=== PATIENT | male | born 1940 | race Caucasian/White ===

== ENCOUNTER → 2017-07-01 | Outpatient (CLI) | payer MEDICARE, BC | END | disposition home or self-care (01) | LOC: LABWHC1 17:34 | PROVIDERS: ATTEND Family Medicine | DX: I10 Essential (primary) hypertension (principal) | CPT/HCPCS: 36415; 93005 ==

== ENCOUNTER 2018-04-12 13:09 | Inpatient (IN) | payer MEDICARE, BC ==
--- NOTE | 2018-04-12 13:55 | ED ---
General Adult HPI - General Source: patient, RN notes reviewed Mode of arrival: wheelchair Limitations: no limitations <Raman Pike - Last Filed: 04/12/18 13:52> <Jitendra Saini - Last Filed: 04/12/18 18:47> - General Chief complaint: Extremity Injury, Lower Stated complaint: Arm Injury Time Seen by Provider: 04/12/18 13:21 - History of Present Illness Initial comments: This is an 78-year-old male presents emergency Department with multiple complaints. Patient states that he developed some pain in his left ankle along with swelling and redness approximately one week ago has been on antibiotics last 2 and half days as he was told he had an infection in his left foot and ankle. He states that he was seen in the [facility] and [facility]. Patient states that he had lab work, ultrasound at that time. He states now he developed right knee swelling and pain without any injury. He states had no injury to his left leg either. Patient denies any chest pain or shortness of breath. Patient does have a history of A. fib currently on Coumadin therapy. Patient states that he has some right-sided neck pain. He believes he dislocated that long. He states that this does not seem to be associated with his other symptoms. He denies any headache, blurred vision or any focal weakness. He has no history DVT no history of gout. (Raman Pike) - Related Data Home Medications Medication Instructions Recorded Confirmed amLODIPine BESYLATE [Norvasc] 10 mg PO DAILY 02/21/14 04/12/18 Ascorbic Acid [Vitamin C] 1,000 mg PO DAILY 04/12/18 04/12/18 Cholecalciferol [Vitamin D3] 1,000 unit PO DAILY 04/12/18 04/12/18 Clindamycin HCl 300 mg PO Q6H 04/12/18 04/12/18 Fish Oil/Dha/Epa [Fish Oil 1,200 1 cap PO DAILY 04/12/18 04/12/18 mg Fish Oil] Glucosam/Cornelius-Msm1/C/Erik/Bosw 1 tab PO DAILY 04/12/18 04/12/18 [Glucosamine-Chondroitin Tablet] Multivitamins, Thera [Multivitamin 1 tab PO DAILY 04/12/18 04/12/18 (formulary)] Selenium 100 mcg PO DAILY 04/12/18 04/12/18 Warfarin [Coumadin] 5 mg PO DIRECTED 04/12/18 04/12/18 Zinc 50 mg PO DAILY 04/12/18 04/12/18 traMADol HCL [Ultram] 50 - 100 mg PO Q4H PRN 04/12/18 04/12/18 Allergies Allergy/AdvReac Type Severity Reaction Status Date / Time Penicillins Allergy Rash/Hives Verified 04/12/18 16:52 Sulfa (Sulfonamide Allergy Rash/Hives Verified 04/12/18 16:52 Antibiotics) Review of Systems ROS Other: All systems not noted in ROS Statement are negative. <Raman Pike - Last Filed: 04/12/18 13:52> ROS Other: All systems not noted in ROS Statement are negative. <Jitendra Saini - Last Filed: 04/12/18 18:47> ROS Statement: Those systems with pertinent positive or pertinent negative responses have been documented in the HPI. Past Medical History Past Medical History: Cancer, Hypertension, Osteoarthritis (OA), Prostate Disorder History of Any Multi-Drug Resistant Organisms: None Reported Past Surgical History: Back Surgery, Joint Replacement, Prostate Surgery, Tonsillectomy Additional Past Surgical History / Comment(s): LT TOTAL KNEE; MULT SX ON RT KNEE ; ROHITH ROTATOR CUFF SURG, CYST REMOVED Past Anesthesia/Blood Transfusion Reactions: No Reported Reaction Past Psychological History: No Psychological Hx Reported Smoking Status: Never smoker Past Alcohol Use History: None Reported Past Drug Use History: None Reported - Past Family History Mother Family Medical History: Cancer Additional Family Medical History / Comment(s): FATHER - CANCER <Raman Pike - Last Filed: 04/12/18 13:52> General Exam Limitations: no limitations General appearance: alert, in no apparent distress Head exam: Present: atraumatic, normocephalic, normal inspection Neck exam: Present: normal inspection. Absent: tenderness, meningismus, lymphadenopathy Respiratory exam: Present: normal lung sounds bilaterally. Absent: respiratory distress, wheezes, rales, rhonchi, stridor Cardiovascular Exam: Present: regular rate, normal rhythm, normal heart sounds. Absent: systolic murmur, diastolic murmur, rubs, gallop, clicks Extremities exam: Present: other (Left ankle there is moderate swelling, mild erythema. Pedal pulses are equal bilaterally, there is mild swelling noted of the left calf region. Patient also has right knee swelling with no erythema no warmth patient's full range of motion minimally tender) Neurological exam: Present: alert, oriented X3, CN II-XII intact, reflexes normal. Absent: motor sensory deficit Skin exam: Present: warm, dry, intact, normal color. Absent: rash <Raman Pike - Last Filed: 04/12/18 13:52> Vital Signs 04/12/18 04/12/18 13:14 18:17 Temperature 98.8 F 99.2 F Pulse Rate 70 54 L Respiratory 16 16 Rate Blood Pressure 140/84 142/89 O2 Sat by Pulse 95 98 Oximetry Medical Decision Making <Raman Pike - Last Filed: 04/12/18 13:52> - Lab Data Result diagrams: 04/12/18 14:00 04/12/18 14:00 <Jitendra Saini - Last Filed: 04/12/18 18:47> - Medical Decision Making 78-year-old male with left ankle and right knee pain and swelling. Patient has elevated CRP, normal white blood cell count. There is some concern for infection that is partially treated given the patient has been on clindamycin. Joint aspiration is obtained. These results are pending including culture and crystals. X-ray of the knee shows large effusion, x-ray of the ankle shows soft tissue swelling. Ultrasound is obtained bilaterally which is negative for DVT, there is a acosta's cyst on the right. Case discussed with orthopedics, is felt at this time this is low probability of infection, we will await culture results as well as crystal studies. Case discussed with Dr. Watson, patient will be admitted secondary to both lower extremities being involved and difficulty ambulating. Rheumatology will be placed on consult. (Jitendra Saini) - Lab Data Lab Results 04/12/18 04/12/18 04/12/18 Range/Units 14:00 14:00 14:00 WBC 7.7 (3.8-10.6) k/uL RBC 4.54 (4.30-5.90) m/uL Hgb 12.9 L (13.0-17.5) gm/dL Hct 39.9 (39.0-53.0) % MCV 87.9 (80.0-100.0) fL MCH 28.5 (25.0-35.0) pg MCHC 32.5 (31.0-37.0) g/dL RDW 14.0 (11.5-15.5) % Plt Count 301 (150-450) k/uL Neutrophils % 80 % Lymphocytes % 9 % Monocytes % 8 % Eosinophils % 1 % Basophils % 0 % Neutrophils # 6.2 (1.3-7.7) k/uL Lymphocytes # 0.7 L (1.0-4.8) k/uL Monocytes # 0.6 (0-1.0) k/uL Eosinophils # 0.1 (0-0.7) k/uL Basophils # 0.0 (0-0.2) k/uL PT 33.9 H (9.0-12.0) sec INR 3.8 H (<1.2) APTT 44.0 H (22.0-30.0) sec Sodium 140 (137-145) mmol/L Potassium 4.1 (3.5-5.1) mmol/L Chloride 102 (98-107) mmol/L Carbon Dioxide 28 (22-30) mmol/L Anion Gap 10 mmol/L BUN 21 H (9-20) mg/dL Creatinine 0.90 (0.66-1.25) mg/dL Est GFR (CKD-EPI)AfAm >90 (>60 ml/min/1.73 sqM) Est GFR (CKD-EPI)NonAf 80 (>60 ml/min/1.73 sqM) Glucose 127 H (74-99) mg/dL Plasma Lactic Acid Roshan (0.7-2.0) mmol/L Uric Acid 5.6 (3.5-8.5) mg/dL Calcium 8.6 (8.4-10.2) mg/dL Total Bilirubin 0.4 (0.2-1.3) mg/dL AST 24 (17-59) U/L ALT 36 (21-72) U/L Alkaline Phosphatase 60 (38-126) U/L C-Reactive Protein 161.8 H (<10.0) mg/L Total Protein 5.7 L (6.3-8.2) g/dL Albumin 3.0 L (3.5-5.0) g/dL Fluid Source Fluid Color Fluid Appearance Fluid RBC /uL Fluid Nucleated Cells /uL Fluid Polynuclear WBCs % Fluid Mononuclear WBCs % 04/12/18 04/12/18 Range/Units 14:00 16:40 WBC (3.8-10.6) k/uL RBC (4.30-5.90) m/uL Hgb (13.0-17.5) gm/dL Hct (39.0-53.0) % MCV (80.0-100.0) fL MCH (25.0-35.0) pg MCHC (31.0-37.0) g/dL RDW (11.5-15.5) % Plt Count (150-450) k/uL Neutrophils % % Lymphocytes % % Monocytes % % Eosinophils % % Basophils % % Neutrophils # (1.3-7.7) k/uL Lymphocytes # (1.0-4.8) k/uL Monocytes # (0-1.0) k/uL Eosinophils # (0-0.7) k/uL Basophils # (0-0.2) k/uL PT (9.0-12.0) sec INR (<1.2) APTT (22.0-30.0) sec Sodium (137-145) mmol/L Potassium (3.5-5.1) mmol/L Chloride (98-107) mmol/L Carbon Dioxide (22-30) mmol/L Anion Gap mmol/L BUN (9-20) mg/dL Creatinine (0.66-1.25) mg/dL Est GFR (CKD-EPI)AfAm (>60 ml/min/1.73 sqM) Est GFR (CKD-EPI)NonAf (>60 ml/min/1.73 sqM) Glucose (74-99) mg/dL Plasma Lactic Acid Roshan 1.4 (0.7-2.0) mmol/L Uric Acid (3.5-8.5) mg/dL Calcium (8.4-10.2) mg/dL Total Bilirubin (0.2-1.3) mg/dL AST (17-59) U/L ALT (21-72) U/L Alkaline Phosphatase (38-126) U/L C-Reactive Protein (<10.0) mg/L Total Protein (6.3-8.2) g/dL Albumin (3.5-5.0) g/dL Fluid Source Synovial Fluid Color Yellow Fluid Appearance Cloudy Fluid RBC 0 /uL Fluid Nucleated Cells 8520 /uL Fluid Polynuclear WBCs 95 % Fluid Mononuclear WBCs 5 % Disposition <Raman Pike - Last Filed: 04/12/18 13:52> Is patient prescribed a controlled substance at d/c from ED?: No Decision to Admit Reason: Admit from EC Decision Date: 04/12/18 Decision Time: 18:47 <Jitendra Saini - Last Filed: 04/12/18 18:47> Clinical Impression: Polyarthritis Disposition: ADMITTED IP TO THIS HOSP Condition: Stable Referrals: Maurizio Joel DO [Primary Care Provider] - 1-2 days
[2018-04-12 14:15] LABS: Basophils % (A) 0 %; Eosinophils # (A) 0.1 k/uL (0-0.7); Eosinophils % (A) 1 %; HCT 39.9 % (39.0-53.0); HGB 12.9 gm/dL (13.0-17.5); Lymphocytes # (A) 0.7 k/uL (1.0-4.8); Lymphocytes % (A) 9 %; MCH 28.5 pg (25.0-35.0); MCHC 32.5 g/dL (31.0-37.0); MCV 87.9 fL (80.0-100.0); Mean Platelet Volume 6.8; Monocytes # (A) 0.6 k/uL (0-1.0); Monocytes % (A) 8 %; Neutrophils # (A) 6.2 k/uL (1.3-7.7); Neutrophils % (A) 80 %; Platelet Count 301 k/uL (150-450); RBC 4.54 m/uL (4.30-5.90); WBC 7.7 k/uL (3.8-10.6)
[2018-04-12 14:24] LABS: INR 3.8 (<1.2); Prothrombin Time 33.9 sec (9.0-12.0)
[2018-04-12 14:31] LABS: ALT 36 U/L (21-72); AST 24 U/L (17-59); Alkaline Phosphatase 60 U/L (38-126); Anion Gap 10 mmol/L; Blood Urea Nitrogen 21 mg/dL (9-20); Calcium 8.6 mg/dL (8.4-10.2); Carbon Dioxide 28 mmol/L (22-30); Chloride 102 mmol/L (98-107); Glucose 127 mg/dL (74-99); Potassium 4.1 mmol/L (3.5-5.1); Sodium 140 mmol/L (137-145); Total Bilirubin 0.4 mg/dL (0.2-1.3); Total Protein 5.7 g/dL (6.3-8.2); Uric Acid 5.6 mg/dL (3.5-8.5)
--- NOTE | 2018-04-12 14:41 | XR ---
EXAMINATION TYPE: XR knee complete 3 views RT, XR ankle complete 3 views LT DATE OF EXAM: 04/12/2018 COMPARISON: NONE HISTORY: 78-year-old male with pain and swelling FINDINGS: Right knee: There is tricompartmental degenerative spurring with at least moderate narrowing of cartilage and zeina nt space. No acute fracture, subluxation, or dislocation. Additional prominent degenerative spurring at the proximal tibiofibular joint. Large knee joint effusion is noted. Extensor mechanism intact. Va scular calcifications. Left ankle: There is circumferential soft tissue swelling at the ankle. Ankle mortise remains congruent with pres ervation of the distal tibiofibular overlap. Vascular calcifications. Small plantar calcaneal spur. N o acute fracture, subluxation, or dislocation seen. There is fusiform thickening of the middle third Achilles tendon. IMPRESSION: Right knee: 1. Moderate tricompartmental osteoarthrosis. 2. Large knee joint effusion though without acute osseous abnormality seen. Consider MRI to assess fo r internal derangement. Left ankle: 1. Circumferential soft tissue swelling. No acute osseous abnormality seen. 2. Rcxs-ah-bomiggdr Achilles tendinopathy. Ultrasound or MRI if there are localizing symptoms here.
[2018-04-12 14:43] LABS: C Reactive Protein 161.8 mg/L (<10.0)
--- NOTE | 2018-04-12 15:33 | US ---
EXAMINATION TYPE: US venous doppler duplex LE BI DATE OF EXAM: 04/12/2018 3:16 PM COMPARISON: NONE CLINICAL HISTORY: 78-year-old male Pain. Right knee pain and edema. Left ankle pain and edema for 2 w eeks. Patient taking Coumadin for 5 months - AFIB SIDE PERFORMED: Bilateral TECHNIQUE: The lower extremity deep venous system is examined utilizing real time linear array sonog arely with graded compression, doppler sonography and color-flow sonography. FINDINGS: VESSELS IMAGED: External Iliac Vein (EIV) Common Femoral Vein Deep Femoral Vein Greater Saphenous Vein * Femoral Vein Popliteal Vein Small Saphenous Vein * Proximal Calf Veins (* superficial vessels) Right Leg: No evidence of DVT. Moderately complex fluid collection right popliteal fossa = 7.5 x 2.7 x 4.8cm, compatible with a Ling's cyst Left Leg: No evidence of DVT IMPRESSION: 1. No evidence for DVT within the bilateral lower extremities imaged from the groin to the upper calv es. 2. A moderate sized, complex Ling cyst behind the right knee measuring 7.5 cm.
[2018-04-12] MEDS ORDERED: LIDOCAINE 1% INJ 10MG/ML (20 ML MDV) SQ ONE (16:00)
[2018-04-12] MEDS ORDERED: VANCOMYCIN IV PER PHARMACY 1 EACH MISC MISCELLANE PRN (17:13)
[2018-04-12] MEDS ORDERED: VANCOMYCIN 1,500 MG in SODIUM CHLORIDE 0.9% 250 ML IVPB STA (17:23)
[2018-04-12 18:12] LABS: Appearance,BF Cloudy; Color,BF Yellow; RBC, Body Fluid 0 /uL
[2018-04-12 18:13] LABS: Mononuclear WBC,Body Fluid 5 %; Nucleated Cells, Body Fluid 8520 /uL; Polynuclear WBC,Body Fluid 95 %; Total Cells Counted,Body Fluid 100
[2018-04-12] MEDS ORDERED: COLCHICINE 0.6 MG EACH PO STA (18:39)
[2018-04-12] MEDS ORDERED: ACETAMINOPHEN TAB 325 MG TAB PO PRN (18:43)
[2018-04-12] MEDS ORDERED: NALOXONE 0.4 MG/ML 1 ML VIAL IV PRN (18:43)
[2018-04-12] MEDS: MORPHINE SULFATE 2 MG/ML SYRINGE IV PRN (19:30)
[2018-04-12] MEDS ORDERED: COLCHICINE 0.6 MG EACH PO ONE (21:00)
[2018-04-13] MEDS: MORPHINE SULFATE 2 MG/ML SYRINGE IV PRN ×2 (02:09→10:34)
[2018-04-13] MEDS: VANCOMYCIN 1,500 MG in SODIUM CHLORIDE 0.9% 250 ML IVPB SCH ×2 (05:21→18:28)
[2018-04-13 09:42] LABS: Basophils % (A) 0 %; Eosinophils # (A) 0.2 k/uL (0-0.7); Eosinophils % (A) 2 %; HCT 35.1 % (39.0-53.0); HGB 11.3 gm/dL (13.0-17.5); Lymphocytes # (A) 0.8 k/uL (1.0-4.8); Lymphocytes % (A) 9 %; MCH 28.1 pg (25.0-35.0); MCHC 32.1 g/dL (31.0-37.0); MCV 87.3 fL (80.0-100.0); Mean Platelet Volume 6.9; Monocytes # (A) 0.6 k/uL (0-1.0); Monocytes % (A) 7 %; Neutrophils # (A) 6.8 k/uL (1.3-7.7); Neutrophils % (A) 80 %; Platelet Count 321 k/uL (150-450); RBC 4.02 m/uL (4.30-5.90); RDW 13.9 % (11.5-15.5); WBC 8.6 k/uL (3.8-10.6)
[2018-04-13 10:00] LABS: ALT 35 U/L (21-72); AST 20 U/L (17-59); Albumin 2.7 g/dL (3.5-5.0); Alkaline Phosphatase 64 U/L (38-126); Anion Gap 10 mmol/L; Blood Urea Nitrogen 15 mg/dL (9-20); Calcium 8.6 mg/dL (8.4-10.2); Carbon Dioxide 24 mmol/L (22-30); Chloride 104 mmol/L (98-107); Glucose 116 mg/dL (74-99); Potassium 4.1 mmol/L (3.5-5.1); Sodium 138 mmol/L (137-145); Total Bilirubin 0.4 mg/dL (0.2-1.3); Total Protein 5.4 g/dL (6.3-8.2)
[2018-04-13] MEDS ORDERED: NON-FORMULARY DRUG (Zinc [Zinc] 50 MG) PO SCH (11:00)
[2018-04-13] MEDS ORDERED: NON-FORMULARY DRUG (Glucosam/Chon-Msm1/C/Mang/Bosw [Glucosamine-Chondroitin Tablet] 1 TAB) PO SCH (11:00)
[2018-04-13] MEDS ORDERED: WARFARIN 5 MG TAB PO SCH (11:00)
[2018-04-13] MEDS ORDERED: NON-FORMULARY DRUG (Selenium [Selenium] 100 MCG) PO SCH (11:00)
[2018-04-13] MEDS ORDERED: NON-FORMULARY DRUG (Fish Oil/Dha/Epa [Fish Oil 1,200 Mg Fish Oil] 1 CAP) PO SCH (11:00)
[2018-04-13] MEDS: amLODIPine 10 MG TAB PO SCH (12:11)
[2018-04-13] MEDS: ASCORBIC ACID 500 MG TAB PO SCH (12:11)
[2018-04-13] MEDS: CHOLECALCIFEROL 1,000 UNIT TAB PO SCH (12:11)
[2018-04-13] MEDS: MULTIVITAMINS, THERA 1 EACH TAB PO SCH (12:12)
--- NOTE | 2018-04-13 17:02 | ECHOF ---
Referral Reason:cp MEASUREMENTS -------- HEIGHT: 177.8 cm WEIGHT: 79.4 kg BP: 153/94 IVSd: 1.3 cm (0.6 - 1.1) LVIDd: 4.0 cm (3.9 - 5.3) LVPWd: 1.4 cm (0.6 - 1.1) IVSs: 1.4 cm LVIDs: 2.4 cm LVPWs: 1.5 cm Ao Diam: 3.5 cm (2.0 - 3.7) LAESV Index (A-L): 46.12 ml/m Ao Diam: 3.5 cm (2.0 - 3.7) LA Diam: 4.3 cm (2.7 - 3.8) AV Cusp: 1.8 cm (1.5 - 2.6) EPSS: 0.6 cm MV E Parveen: 0.98 m/s MV DecT: 187 ms MV A Parveen: 0.16 m/s MV E/A Ratio: 159.20 RAP: 5.00 mmHg RVSP: 34.56 mmHg MV EF SLOPE: 130.84 mm/s (70 - 150) MV EXCURSION: 1.61 cm (> 18.000) FINDINGS -------- Sinus rhythm with extra systolic beats. This was a technically adequate study. The left ventricular size is normal. There is borderline concentric left ventricular hypertrophy. Overall left ventricular systolic function is normal with, an EF between 55 - 60 %. The right ventricle is normal in size and function. LA is severely dilated >40 ml/m2 RA appears enlarged. There is mild aortic valve sclerosis. There is no evidence of aortic regurgitation. There is no e vidence of aortic stenosis. The mitral valve leaflets are mildly thickened. Atrd-pf-fbsxlgqt mitral regurgitation is present. Rdhl-gb-vqmeoghx tricuspid regurgitation present. There is borderline pulmonary hypertension. The right ventricular systolic pressure, as measured by Doppler, is 34.56mmHg. The pulmonic valve was not well visualized. The aortic root size is normal. Normal inferior vena cava with normal inspiratory collapse consistent with estimated right atrial pre ssure of 5 mmHg. There is no pericardial effusion. CONCLUSIONS -------- 1. Sinus rhythm with extra systolic beats. 2. This was a technically adequate study. 3. The left ventricular size is normal. 4. There is borderline concentric left ventricular hypertrophy. 5. Overall left ventricular systolic function is normal with, an EF between 55 - 60 %. 6. LA is severely dilated >40 ml/m2 7. RA appears enlarged. 8. There is mild aortic valve sclerosis. 9. The mitral valve leaflets are mildly thickened. 10. Imhr-vm-uufprljs mitral regurgitation is present. 11. Yerd-ky-gelflpop tricuspid regurgitation present. 12. There is borderline pulmonary hypertension. 13. The right ventricular systolic pressure, as measured by Doppler, is 34.56mmHg. 14. The pulmonic valve was not well visualized. 15. The aortic root size is normal. 16. There is no pericardial effusion. MEMBER OF TECHNICAL STAFF: Chip Del Real RDCS
[2018-04-13 17:08] LABS: D-Dimer 0.78 mg/L FEU (<0.60); INR 2.3 (<1.2)
--- NOTE | 2018-04-13 17:14 | P.CONS ---
History of Present Illness - Reason for Consult Consult date: 04/13/18 polyarthritis Requesting physician: Quique Watson - Chief Complaint polyarthritis - History of Present Illness Patient is seen today as an inpatient consult for her polyarthritis. Patient is an 78-year-old male with a previous medical history of atrial fibrillation currently on Coumadin and left knee replacement. Patient and his state that about 2 weeks in 2 days ago patient had an accident while working in his garage and a battery fell on his left arm causing a break for which he was casted at [facility]. Four days after that patient noticed extreme swelling and pain and the inability to bear weight on his left ankle and denies any injury. Patient did use tramadol which did not help his pain and eventually did go to the ER on April 08 in [facility] and was prescribed clindamycin for possible infection, and patient and do report that his swelling did improve after starting the antibiotic. Patient states that about 2 days ago he began to have right knee swelling and pain which has not happened before, so came to the emergency room. Patient states he may have had mild fevers at home. Patient is currently afebrile. Review of Systems Musculoskeletal: Reports fractures (left arm/wrist) Musculoskeletal: right: knee pain, knee swelling, left: ankle pain, ankle swelling Past Medical History Past Medical History: Cancer, Hypertension, Osteoarthritis (OA), Prostate Disorder History of Any Multi-Drug Resistant Organisms: None Reported Past Surgical History: Back Surgery, Joint Replacement, Prostate Surgery, Tonsillectomy Additional Past Surgical History / Comment(s): LT TOTAL KNEE; MULT SX ON RT KNEE ; ROHITH ROTATOR CUFF SURG, CYST REMOVED; two back surgeries Past Anesthesia/Blood Transfusion Reactions: No Reported Reaction Past Psychological History: No Psychological Hx Reported Smoking Status: Never smoker Past Alcohol Use History: None Reported Past Drug Use History: None Reported - Past Family History Mother Family Medical History: Cancer Additional Family Medical History / Comment(s): FATHER (and mother)- CANCER Medications and Allergies Home Medications Medication Instructions Recorded Confirmed Type amLODIPine BESYLATE [Norvasc] 10 mg PO DAILY 02/21/14 04/12/18 History Ascorbic Acid [Vitamin C] 1,000 mg PO DAILY 04/12/18 04/12/18 History Cholecalciferol [Vitamin D3] 1,000 unit PO DAILY 04/12/18 04/12/18 History Clindamycin HCl 300 mg PO Q6H 04/12/18 04/12/18 History Fish Oil/Dha/Epa [Fish Oil 1,200 1 cap PO DAILY 04/12/18 04/12/18 History mg Fish Oil] Glucosam/Cornelius-Msm1/C/Erik/Bosw 1 tab PO DAILY 04/12/18 04/12/18 History [Glucosamine-Chondroitin Tablet] Multivitamins, Thera [Multivitamin 1 tab PO DAILY 04/12/18 04/12/18 History (formulary)] Selenium 100 mcg PO DAILY 04/12/18 04/12/18 History Warfarin [Coumadin] 5 mg PO DIRECTED 04/12/18 04/12/18 History Zinc 50 mg PO DAILY 04/12/18 04/12/18 History traMADol HCL [Ultram] 50 - 100 mg PO Q4H PRN 04/12/18 04/12/18 History Allergies Allergy/AdvReac Type Severity Reaction Status Date / Time Penicillins Allergy Rash/Hives Verified 04/12/18 16:52 Sulfa (Sulfonamide Allergy Rash/Hives Verified 04/12/18 16:52 Antibiotics) Physical Exam Vitals: Vital Signs Temp Pulse Pulse Resp BP BP Pulse Ox 04/13/18 14:39 98.2 F 61 17 153/94 97 04/13/18 12:09 97 142/99 99 04/13/18 10:38 97 18 156/106 99 04/13/18 10:05 100 18 150/106 96 04/13/18 06:05 97.7 F 90 17 142/98 93 L 04/13/18 00:00 18 04/12/18 23:00 98.1 F 94 18 159/87 95 04/12/18 20:22 98.8 F 113 H 18 158/94 97 04/12/18 20:02 99.1 F 56 L 18 138/87 98 04/12/18 18:17 99.2 F 54 L 16 142/89 98 Intake and Output 04/13/18 04/13/18 04/13/18 06:59 14:59 22:59 Intake Total 240 Balance 240 Intake: Oral 240 Other: Voiding Method Toilet Urinal # Voids 1 2 # Bowel Movements 0 0 On physical exam, there is no gregorio evidence of synovitis. Patient continues to have right knee swelling compared to the left with normal range of motion bilaterally. Patient does have 2+ pitting edema of to the left ankle that extends about 2 inches above the left ankle, denies tenderness or pain on exam. Patient does have a scar on the left knee from LTKA. Results CBC & Chem 7: 04/13/18 09:02 04/13/18 09:02 Labs: Abnormal Lab Results - Last 24 Hours (Table) 04/13/18 04/13/18 04/13/18 Range/Units 09:02 09:02 16:41 RBC 4.02 L (4.30-5.90) m/uL Hgb 11.3 L (13.0-17.5) gm/dL Hct 35.1 L (39.0-53.0) % Lymphocytes # 0.8 L (1.0-4.8) k/uL PT 21.0 H (9.0-12.0) sec INR 2.3 H (<1.2) D-Dimer 0.78 H (<0.60) mg/L FEU Glucose 116 H (74-99) mg/dL Total Protein 5.4 L (6.3-8.2) g/dL Albumin 2.7 L (3.5-5.0) g/dL Microbiology - Last 24 Hours (Table) 04/12/18 16:40 Gram Stain - Preliminary Knee - Right Body Fluid Culture - Preliminary 04/12/18 14:00 Blood Culture - Preliminary Blood No Growth after 24 hours Assessment and Plan Assessment: Patient is seen today as an inpatient consult for her polyarthritis. Patient is an 78-year-old male with a previous medical history of atrial fibrillation currently on Coumadin and left knee replacement. Patient and his state that about 2 weeks in 2 days ago patient had an accident while working in his garage and a battery fell on his left arm causing a break for which he was casted at [facility]. Four days after that patient noticed extreme swelling and pain and the inability to bear weight on his left ankle and denies any injury. Patient did use tramadol which did not help his pain and eventually did go to the ER on April 08 in [facility] and was prescribed clindamycin for possible infection, and patient and do report that his swelling did improve after starting the antibiotic. Patient states that about 2 days ago he began to have right knee swelling and pain which has not happened before, so came to the emergency room. Patient states he may have had mild fevers at home. Patient is currently afebrile. In the emergency room patient's right knee was aspirated and was found to have 0 RBCs, 8520 polynuclear cells, 95 polynuclear white blood cells, and 5 mononuclear white blood cells. On review of labs, patient's CRP was elevated of 161.8, white blood cell count is normal of 8.6, hemoglobin low 11.3, hematocrit low 35.1, uric acid was normal 5.6. On physical exam, there is no gregorio evidence of synovitis. Patient continues to have right knee swelling compared to the left with normal range of motion bilaterally. Patient does have 2+ pitting edema of to the left ankle that extends about 2 inches above the left ankle, denies tenderness or pain on exam. Patient does have a scar on the left knee from LTKA. Patient and his do report that he had episode of chest pain this morning for which EKG was done, troponin done at 11 am today was negative. Patient had echocardiogram which showed sinus rhythm with extrasystolic beats, ejection fraction between 55-60%. It is unlikely the patient's symptoms are due to an autoimmune inflammatory arthritis, most likely patient's symptoms are due to septic arthritis versus gout, however patient's uric acid was normal and there were no crystals found in synovial fluid was aspirated from patient's right knee. Patient's white blood cell count was normal on admission however the this may be due to the fact the patient was on clindamycin, so septic arthritis should be ruled out, and patient may need orthopedic consult as well. If septic arthritis is ruled out patient may benefit from intra-articular corticosteroid injection as outpatient. As patient already had basic labs and uric acid done no other rheumatological labs need to be ordered at this time. Patient may follow with us as outpatient. (1) Knee effusion, right Current Visit: Yes Status: Acute Code(s): M25.461 - EFFUSION, RIGHT KNEE SNOMED Code(s): 783328180 (2) Swelling of ankle joint, left Current Visit: Yes Status: Acute Code(s): M25.472 - EFFUSION, LEFT ANKLE SNOMED Code(s): 348172713 (3) Polyarthritis Current Visit: Yes Status: Acute Code(s): M13.0 - POLYARTHRITIS, UNSPECIFIED SNOMED Code(s): 86304080 (4) Elevated C-reactive protein (CRP) Current Visit: Yes Status: Acute Code(s): R79.82 - ELEVATED C-REACTIVE PROTEIN (CRP) SNOMED Code(s): 787853555834614 Time with Patient: Greater than 30
[2018-04-13] MEDS ORDERED: WARFARIN 2.5 MG TAB PO ONE (18:30)
--- NOTE | 2018-04-13 21:00 | HP ---
HISTORY AND PHYSICAL DATE OF ADMISSION: 04/12/18. DATE OF SERVICE: 04/13/18. PRESENTING COMPLAINT: Pain, swelling, left ankle, foot and right knee. HISTORY OF PRESENTING COMPLAINT: A very pleasant 78-year-old gentleman who follows with Dr. Joel. Chronic stable medical conditions include atrial fibrillation, hypertension, history of prostate cancer, and patient is on Coumadin. The patient about 2 weeks ago was using a drill and injured his left forearm with fracture and the left forearm is wrapped up. The patient did see Dr. Anne from [facility]. [place] and developed severe pain and swelling of the left foot, which included the ankle and the entire foot, so much so that the patient had to go down to the ER in [place]. There he was put on clindamycin and Ultram and it started to get better. After taking it for 4 or 5 days patient then developed pain and swelling in the right knee. This was about 5 to 6 days ago and it progressed to get worse. The patient according to the had been feeling warm, had some chills. There was one night patient actually was delirious though that was attributed to him taking his Ultram. There was no rash. Patient did say that there were some mosquito bites in that area. The patient was never actually physically in the [place]. He was wearing a rubber suit and working on the deck with his son. The patient's right knee was tapped in the ER. Consultation was placed to Dr. Miller from Rheumatology. Patient was started on IV vancomycin. The patient's appetite is fair. The patient is otherwise rather pretty active gentleman. REVIEW OF SYSTEMS: CONSTITUTIONAL: [place] warm, some chills. HEENT: None. RESPIRATORY: None. CARDIOVASCULAR: None. GASTROINTESTINAL: No diarrhea. GENITOURINARY: None. MUSCULOSKELETAL: As above. DERMATOLOGICAL: As above. LYMPHATICS: None. PSYCHIATRY: As above. NEUROLOGICAL: None. PAST MEDICAL HISTORY: Hypertension, osteoarthritis, atrial fibrillation, prostate cancer. PAST SURGICAL HISTORY: Back surgery, prostate surgery, tonsillectomy, multiple surgeries right knee, bilateral rotator cuff surgery, 2 back surgeries. SOCIAL HISTORY: No smoking, no alcohol, . FAMILY HISTORY: Mother and father both had cancer. HOME MEDICATIONS: 1. Norvasc 10 mg a day. 2. Ultram 50-100 q.4h p.r.n. 3. Zinc 50 mg p.o. daily. 4. Coumadin 5 mg as directed. 5. Psyllium 800 mcg p.o. daily. 6. Multivitamin 1 tablet p.o. daily. 7. Glucosamine chondroitin 1 tablet p.o. daily. 8. Fish oil 1 capsule p.o. daily. 9. Clindamycin 300 mg q.6. 10.Vitamin D3 1000 units p.o. daily. 11.Vitamin C 1000 mg p.o. daily. ALLERGIES: To PENICILLIN AND SULFA. PHYSICAL EXAMINATION: Temperature 98.8, pulse 72, respiration 16, blood pressure 140/84, pulse ox 95% on room air. GENERAL APPEARANCE: Average build, sitting on bed, a bit tired-appearing. EYES: Pupils equal. Conjunctivae normal. HEENT: External appearance of nose and ears normal. Oral cavity normal. NECK: JVD not raised. Mass not palpable. RESPIRATORY: Effort normal, lungs are clear. CARDIOVASCULAR: First and second sounds normal, no edema. ABDOMEN: Soft, nontender. Liver and spleen not palpable. LYMPHATIC: No lymph nodes palpable in neck or axillae. PSYCHIATRY: Alert and orient x3. Mood and affect normal. EXTREMITIES: Left arm in a dressing. Right knee slightly warm, tender, has got adhesive tape at the point it was drained. Left foot slightly tender, swollen around the ankle in the foot area and is able to move all the joints, not exquisitely tender. DERMATOLOGICAL: No skin rashes. INVESTIGATIONS: White count 7.7, decreased lymphocytes. INR 3.8. Potassium 4.1, BUN 21, creatinine 0.9. C-reactive protein 1.8. Right knee fluid has come back showing nucleated cells 8520, WBC 95. ASSESSMENT: 1. This very pleasant gentleman presents with 2-week history of start of left foot pain, swelling and redness, and patient did clinically respond to clindamycin and then had pain, swelling of the right knee. The patient has had some mosquito bites, some low-grade fever, one episode of delirium. This could be low-grade systemic infection with reactive polyarthritis, though it is possible the two joint infection is unrelated. 2. History of atrial fibrillation. 3. Coumadin monitoring. 4. Essential hypertension. 5. Hypoalbuminemia likely reactive. PLAN: Consultation was made to Dr. Miller from from Rheumatology and Dr. Stark from Infectious Disease. The patient to continue on vancomycin for right now. We will give IV fluids. Home medications are reviewed. Care was discussed with the patient. Questions were answered. I put the patient back on home dose of Ultram. Discussed with the patient, his and son at the bedside. ALEX / JAZZ: [id number] /
[2018-04-14] MEDS: VANCOMYCIN 1,500 MG in SODIUM CHLORIDE 0.9% 250 ML IVPB SCH ×2 (06:38→17:40)
[2018-04-14] MEDS: amLODIPine 10 MG TAB PO SCH (09:49)
[2018-04-14] MEDS: CHOLECALCIFEROL 1,000 UNIT TAB PO SCH (09:49)
[2018-04-14] MEDS: ASCORBIC ACID 500 MG TAB PO SCH (09:49)
[2018-04-14 10:23] LABS: INR 1.8 (<1.2)
--- NOTE | 2018-04-14 12:23 | P.PN ---
Subjective Mr. Linares seen and examined this morning resting comfortably in bed in no acute distress. He denies symptoms of chest pain, shortness of breath, dizziness, nausea, palpitations, vomiting or diaphoresis. Telemetry tracings have been unremarkable and reveal persistent atrial fibrillation with controlled ventricular response. Cardiac enzymes are negative 3. Echocardiogram performed and reviewed reveals preserved left ventricular systolic function with mild to moderate MR and TR. Stress test report obtained from [facility] vascular [place] with an exercise stress test which revealed excellent exercise capacity and no evidence of stress-induced ischemic changes on EKG. Objective - Vital Signs Vital signs: Vital Signs Temp 97.5 F L 04/14/18 06:00 Pulse 80 04/14/18 06:00 Resp 16 04/14/18 06:00 BP 154/106 04/14/18 06:00 Pulse Ox 98 04/14/18 06:00 Intake & Output 04/13/18 04/14/18 04/14/18 18:59 06:59 18:59 Intake Total 240 Output Total 900 Balance 240 -900 Intake: Oral 240 Output: Urine 900 Other: Voiding Method Toilet # Voids 2 1 # Bowel Movements 0 - Exam GENERAL: Well-appearing, well-nourished and in no acute distress. NECK: Supple without JVD or thyromegaly. LUNGS: Breath sounds clear to auscultation bilaterally. Respiration equal and unlabored. No wheezes, rales or rhonchi. HEART: Irregular rate and rhythm without murmurs, rubs or gallops. S1 and S2 heard. EXTREMITIES: Normal range of motion, no edema. No clubbing or cyanosis. Peripheral pulses intact. - Labs CBC & Chem 7: 04/13/18 09:02 04/13/18 09:02 Labs: Abnormal Lab Results - Last 24 Hours (Table) 04/13/18 04/14/18 Range/Units 16:41 09:48 PT 21.0 H 16.0 H (9.0-12.0) sec INR 2.3 H 1.8 H (<1.2) D-Dimer 0.78 H (<0.60) mg/L FEU Microbiology - Last 24 Hours (Table) 04/12/18 16:40 Gram Stain - Preliminary Knee - Right Body Fluid Culture - Preliminary 04/12/18 14:00 Blood Culture - Preliminary Blood No Growth after 24 hours Assessment and Plan Assessment: ASSESSMENT Chest pain, atypical for an acute coronary syndrome. Will obtain serial cardiac enzymes. Paroxysmal atrial fibrillation on usp anticoagulation with coumadin with controlled ventricular response Left arm fracture, details unavailable at this time. Left ankle swelling Right knee swelling Hypertension Supra-therapeutic INR PLAN An acute coronary event has been ruled out with no EKG evidence of ischemia, normal cardiac enzymes and recent normal stress test. Telemetry, may be discontinued and he is stable from a cardiac perspective. 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 Nurse Practitioner note has been reviewed, I agree with a documented findings and plan of care. Patient was seen and examined.
[2018-04-14] MEDS: MULTIVITAMINS, THERA 1 EACH TAB PO SCH (12:48)
[2018-04-14] MEDS ORDERED: LIDOCAINE 1% INJ 10MG/ML (20 ML MDV) SQ ONE (14:04)
[2018-04-14] MEDS ORDERED: VANCOMYCIN TROUGH DUE 1 EACH MISC MISCELLANE ONE (17:00)
[2018-04-14] MEDS: WARFARIN 5 MG TAB PO SCH (17:40)
[2018-04-14] MEDS ORDERED: WARFARIN 5 MG TAB PO SCH (18:00)
[2018-04-15 06:23] VITALS: RESP 18
[2018-04-15] MEDS: VANCOMYCIN 1,500 MG in SODIUM CHLORIDE 0.9% 250 ML IVPB SCH ×2 (06:26→17:10)
--- NOTE | 2018-04-15 07:18 | P.CONS ---
History of Present Illness - Reason for Consult Consult date: 04/14/18 - Chief Complaint Joint pain - History of Present Illness 78 -year-old male who has a history of underlying coronary artery disease with atrial fibrillation on anticoagulation, is otherwise healthy, was at his [place] on [facility]. He was working with his son repairing the dock he was in the water in [place] utilizing a battery power drill. The drill bit jammed in the drill motor and battery swung fracturing his left arm. He was cared for in the [facility] where he had cast placed. He did have some arm swelling which required a cast to be split. Since then is doing relatively well without a lot of pain to the arm. Since that time though he has developed difficulties originally with some significant pain and swelling to the left ankle. He was again seen in the emergency center given some pain medications as well as clindamycin. Within days that started to improve and was able to get back to some activity. There full-time residence is here in the [facility] and the lower back home when he noticed several days ago increasing amount of swelling to the right knee. It became so severe that he was not able to bear weight and consequently presented to Hospital, was seen by orthopedic surgery and the site was aspirated. With evidence of gram-positive cocci in that fluid the infectious diseases consultation was requested. The patient is still quite uncomfortable due to the pain to the knee, low-grade fevers have improved. Pain to the left arm is very tolerable and the left ankle is about at baseline. He does of history of a left total knee arthroplasty and that has been giving him no pain or discomfort at this time. Review of Systems Pleasant 78-year-old gentleman in some discomfort because of the knee pain HEENT:Denies headache or acute visual change. Denies sinus or mouth discomforts. Denies neck stiffness or pain. Denies significant oral cavity pain. Denies difficulty on swallowing. Lungs: Denies significant shortness of breath, cough, sputum production, or hemoptysis. Cardiovascular: Denies significant shortness of breath, chest pain, chest wall pain, orthopnea, exercise tolerance before the injuries was at his baseline Gastrointestinal:Denies nausea, vomiting, diarrhea, constipation, hematemesis, melena, hematochezia. No no significant change of bowel habit noticed. Musculoskeletal: As per the HPI Skin: Denies new rash or lesions. No new ulcers or wounds are related.. Neuro: Denies headache or visual change. Denies any new onset weakness or difficulty with ambulation. Denies falls or seizures. Psychiatric:Denies anxiety or depression. Endocrine: Denies significant fatigue, denies significant weight loss or weight gain. Past Medical History Past Medical History: Cancer, Hypertension, Osteoarthritis (OA), Prostate Disorder History of Any Multi-Drug Resistant Organisms: None Reported Past Surgical History: Back Surgery, Joint Replacement, Prostate Surgery, Tonsillectomy Additional Past Surgical History / Comment(s): LT TOTAL KNEE; MULT SX ON RT KNEE ; ROHITH ROTATOR CUFF SURG, CYST REMOVED; two back surgeries Past Anesthesia/Blood Transfusion Reactions: No Reported Reaction Past Psychological History: No Psychological Hx Reported Additional Psychological History / Comment(s): and lives with his . 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 No international travel. No animal exposures. Has a second residence on [facility] Smoking Status: Never smoker Past Alcohol Use History: None Reported Past Drug Use History: None Reported - Past Family History Mother Family Medical History: Cancer Additional Family Medical History / Comment(s): FATHER (and mother)- CANCER Medications and Allergies Home Medications and Allergies Comment(s): Current Medications Acetaminophen (Tylenol Tab) 650 mg PO Q6HR PRN PRN Reason: Mild Pain or Fever > 100.5 Amlodipine Besylate (Norvasc) 10 mg PO DAILY [facility] Last Admin: 04/14/18 09:49 Dose: 10 mg Ascorbic Acid (Vitamin C) 1,000 mg PO DAILY [facility] Last Admin: 04/14/18 09:49 Dose: Not Given Cholecalciferol (Vitamin D3) 1,000 unit PO DAILY [facility] Last Admin: 04/14/18 09:49 Dose: Not Given Vancomycin HCl 1,500 mg/ (Sodium Chloride) 250 mls @ 125 mls/hr IVPB Q12H [facility] Last Admin: 04/15/18 06:26 Dose: 125 mls/hr Morphine Sulfate (Morphine Sulfate (Inj)) 4 mg IV Q4HR PRN PRN Reason: Severe Pain Last Admin: 04/13/18 10:34 Dose: 2 mg Multivitamins (Theragran) 1 each PO 1200 [facility] Last Admin: 04/14/18 12:48 Dose: Not Given Naloxone HCl (Narcan) 0.2 mg IV Q2M PRN PRN Reason: Opioid Reversal Warfarin Sodium (Coumadin) 2.5 mg PO Mo@1800 [facility] Warfarin Sodium (Coumadin) 5 mg PO MicaelauWeThSa [facility] Last Admin: 04/14/18 17:40 Dose: 5 mg Home Medications Medication Instructions Recorded Confirmed Type amLODIPine BESYLATE [Norvasc] 10 mg PO DAILY 02/21/14 04/12/18 History Ascorbic Acid [Vitamin C] 1,000 mg PO DAILY 04/12/18 04/12/18 History Cholecalciferol [Vitamin D3] 1,000 unit PO DAILY 04/12/18 04/12/18 History Clindamycin HCl 300 mg PO Q6H 04/12/18 04/12/18 History Fish Oil/Dha/Epa [Fish Oil 1,200 1 cap PO DAILY 04/12/18 04/12/18 History mg Fish Oil] Glucosam/Cornelius-Msm1/C/Erik/Bosw 1 tab PO DAILY 04/12/18 04/12/18 History [Glucosamine-Chondroitin Tablet] Multivitamins, Thera [Multivitamin 1 tab PO DAILY 04/12/18 04/12/18 History (formulary)] Selenium 100 mcg PO DAILY 04/12/18 04/12/18 History Warfarin [Coumadin] 5 mg PO DIRECTED 04/12/18 04/12/18 History Zinc 50 mg PO DAILY 04/12/18 04/12/18 History traMADol HCL [Ultram] 50 - 100 mg PO Q4H PRN 04/12/18 04/12/18 History Allergies Allergy/AdvReac Type Severity Reaction Status Date / Time Penicillins Allergy Rash/Hives Verified 04/12/18 16:52 Sulfa (Sulfonamide Allergy Rash/Hives Verified 04/12/18 16:52 Antibiotics) Physical Exam Vitals: Vital Signs Temp Pulse Resp BP Pulse Ox 04/15/18 06:22 97.6 F 95 18 134/86 97 04/14/18 21:55 98.3 F 94 16 150/96 96 04/14/18 16:12 97.3 F L 100 18 140/99 97 Intake and Output 04/14/18 04/14/18 04/15/18 14:59 22:59 06:59 Intake Total 250 Balance 250 Intake: Intake, IV Titration 250 Amount Vancomycin 1,500 mg In 250 Sodium Chloride 0.9% 250 ml @ 125 mls/hr IVPB Q12H [facility] Rx#:[id number] Other: Voiding Method Toilet # Voids 2 2 2 78-year-old male minimally uncomfortable of a thin build HEENT: Anicteric conjunctiva are pink and moist nasal mucosa grossly intact without significant lesions, there is no thrush. Neck: The neck is supple without significant lymphadenopathy or thyromegaly. Lungs: Good bilateral air entry without significant crackles or wheezing. There is no significant bronchial sounds. There is no egophony or dullness. Heart: Irregularly irregular with an audible S1 and S2 no S3 soft S4 no distinct murmur click or rub. PMI was nondisplaced Abdomen: Positive bowel sounds soft and nontender without palpable masses or organomegaly. There was no guarding or rebound. Extremities: The right arm is without any acute difficulties. Left arm has the cast in place. The hands without swelling. He has intact sensation throughout all the fingers and has intact motion throughout all the fingers of the hand. The left lower extremity shows evidence of the prior left total knee arthroplasty site. The knee is without swelling or discomfort. There is no warmth or erythema. The left ankle which it had some significant swelling has improved but is not quite the same size yet as the right ankle. It however is without significant pain with range of motion. The right knee is still quite swollen compared to the left. It is quill machine tender with range of motion and with weightbearing. There is some warmth there is still some palpable effusion. There are no other lesions on the knee. Neuro: Awake alert oriented to person place and time. There are no acute new gross focal sensory motor deficits. Results CBC & Chem 7: 04/13/18 09:02 04/13/18 09:02 Labs: Abnormal Lab Results - Last 24 Hours (Table) 04/14/18 Range/Units 09:48 PT 16.0 H (9.0-12.0) sec INR 1.8 H (<1.2) Microbiology - Last 24 Hours (Table) 04/12/18 16:40 Gram Stain - Preliminary Knee - Right Body Fluid Culture - Preliminary 04/12/18 14:00 Blood Culture - Preliminary Blood No Growth after 48 hours Laboratory Results WBC 8.6 k/uL (3.8-10.6) 04/13/18 09:02 RBC 4.02 m/uL (4.30-5.90) L 04/13/18 09:02 Hgb 11.3 gm/dL (13.0-17.5) L 04/13/18 09:02 Hct 35.1 % (39.0-53.0) L 04/13/18 09:02 MCV 87.3 fL (80.0-100.0) 04/13/18 09:02 MCH 28.1 pg (25.0-35.0) 04/13/18 09:02 MCHC 32.1 g/dL (31.0-37.0) 04/13/18 09:02 RDW 13.9 % (11.5-15.5) 04/13/18 09:02 Plt Count 321 k/uL (150-450) 04/13/18 09:02 Neutrophils % 80 % 04/13/18 09:02 Lymphocytes % 9 % 04/13/18 09:02 Monocytes % 7 % 04/13/18 09:02 Eosinophils % 2 % 04/13/18 09:02 Basophils % 0 % 04/13/18 09:02 Neutrophils # 6.8 k/uL (1.3-7.7) 04/13/18 09:02 Lymphocytes # 0.8 k/uL (1.0-4.8) L 04/13/18 09:02 Monocytes # 0.6 k/uL (0-1.0) 04/13/18 09:02 Eosinophils # 0.2 k/uL (0-0.7) 04/13/18 09:02 Basophils # 0.0 k/uL (0-0.2) 04/13/18 09:02 PT 16.0 sec (9.0-12.0) H 04/14/18 09:48 INR 1.8 (<1.2) H 04/14/18 09:48 APTT 44.0 sec (22.0-30.0) H 04/12/18 14:00 D-Dimer 0.78 mg/L FEU (<0.60) H 04/13/18 16:41 Sodium 138 mmol/L (137-145) 04/13/18 09:02 Potassium 4.1 mmol/L (3.5-5.1) 04/13/18 09:02 Chloride 104 mmol/L (98-107) 04/13/18 09:02 Carbon Dioxide 24 mmol/L (22-30) 04/13/18 09:02 Anion Gap 10 mmol/L 04/13/18 09:02 BUN 15 mg/dL (9-20) 04/13/18 09:02 Creatinine 0.90 mg/dL (0.66-1.25) 04/13/18 09:02 Est GFR (CKD-EPI)AfAm >90 (>60 ml/min/1.73 sqM) 04/13/18 09:02 Est GFR (CKD-EPI)NonAf 80 (>60 ml/min/1.73 sqM) 04/13/18 09:02 Glucose 116 mg/dL (74-99) H 04/13/18 09:02 Plasma Lactic Acid Roshan 1.4 mmol/L (0.7-2.0) 04/12/18 14:00 Uric Acid 5.6 mg/dL (3.5-8.5) 04/12/18 14:00 Calcium 8.6 mg/dL (8.4-10.2) 04/13/18 09:02 Magnesium 2.0 mg/dL (1.6-2.3) 04/13/18 09:02 Total Bilirubin 0.4 mg/dL (0.2-1.3) 04/13/18 09:02 AST 20 U/L (17-59) 04/13/18 09:02 ALT 35 U/L (21-72) 04/13/18 09:02 Alkaline Phosphatase 64 U/L (38-126) 04/13/18 09:02 Troponin I <0.012 ng/mL (0.000-0.034) 04/13/18 22:39 C-Reactive Protein 161.8 mg/L (<10.0) H 04/12/18 14:00 Total Protein 5.4 g/dL (6.3-8.2) L 04/13/18 09:02 Albumin 2.7 g/dL (3.5-5.0) L 04/13/18 09:02 Fluid Source Synovial 04/12/18 16:40 Fluid Color Yellow 04/12/18 16:40 Fluid Appearance Cloudy 04/12/18 16:40 Fluid RBC 0 /uL 04/12/18 16:40 Fluid Nucleated Cells 8520 /uL 04/12/18 16:40 Fluid Polynuclear WBCs 95 % 04/12/18 16:40 Fluid Mononuclear WBCs 5 % 04/12/18 16:40 Synovial Source Right Knee 04/12/18 16:40 Vancomycin Trough 18.5 ug/mL 04/14/18 16:52 Microbiology 04/12/18 16:40 Knee - Right Gram Stain - Preliminary 04/12/18 16:40 Knee - Right Body Fluid Culture - Preliminary 04/12/18 14:00 Blood Blood Culture - Preliminary No Growth after 48 hours Assessment and Plan (1) Elevated C-reactive protein (CRP) Current Visit: Yes Status: Acute Code(s): R79.82 - ELEVATED C-REACTIVE PROTEIN (CRP) SNOMED Code(s): 848770085228564 (2) Knee effusion, right Current Visit: Yes Status: Acute Code(s): M25.461 - EFFUSION, RIGHT KNEE SNOMED Code(s): 131439620 (3) Septic arthritis of knee, right Narrative/Plan: 78-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 His recent trauma to his left arm resulting in a fracture requiring casting. The casting need some loosening because of some discomfort. The arm is not doing quite well. He did have a sudden onset of severe pain to the left ankle which is now resolved mostly. But then developed is to begin pain and swelling to the right knee which made it impossible to bear weight. He has been seen by rheumatology and it is not thought that there is underlying polyarthritis. The patient has had the aspiration to the right knee. A turbid material was withdrawn that had a steady amount of white blood cells, no evidence of crystals. Gram stain has gram-positive cocci and culture is in process. It appears that the original trauma allowed seeding of the other joints. Partially treated with oral clindamycin therapy. At this time we await the culture results but utilizing vancomycin for now. At this time it appears she will need outpatient intravenous antibiotic therapy for clearance of the significant infectious process. He fortunately is feeling slightly better today. His temperature has improved. The patient may benefit from orthopedic consultation if the knee does not rapidly improve for repeated aspiration. Blood cultures are negative so far. Current Visit: Yes Status: Acute Code(s): M00.9 - PYOGENIC ARTHRITIS, UNSPECIFIED SNOMED Code(s): 283062453
[2018-04-15] MEDS: ASCORBIC ACID 500 MG TAB PO SCH (08:12)
[2018-04-15] MEDS: CHOLECALCIFEROL 1,000 UNIT TAB PO SCH (08:12)
[2018-04-15] MEDS: amLODIPine 10 MG TAB PO SCH (08:12)
[2018-04-15 08:21] LABS: INR 1.9 (<1.2)
[2018-04-15 08:28] LABS: Anion Gap 8 mmol/L; Blood Urea Nitrogen 18 mg/dL (9-20); Calcium 8.5 mg/dL (8.4-10.2); Carbon Dioxide 28 mmol/L (22-30); Chloride 106 mmol/L (98-107); Glucose 100 mg/dL (74-99); Potassium 3.9 mmol/L (3.5-5.1); Sodium 142 mmol/L (137-145)
--- NOTE | 2018-04-15 08:42 | IR ---
EXAMINATION TYPE: IR cvc insert >=5 years DATE OF EXAM: 04/15/2018 COMPARISON: NONE CLINICAL HISTORY: Infection Needs long-term intravenous access for antibiotics. PROCEDURE: After informed consent, the skin overlying the right basilic vein was localized with ultrasound and n oted to be compressible and patent. An ultrasound image was obtained and submitted on the patient's chart. The overlying skin was prepped and draped and Lidocaine was used for local anesthesia. A ski n uriah was made with a scalpel. Access was gained to the vein under ultrasound guidance with a 21 ga uge needle and a 0.018 inch wire was advanced. Access site was dilated with Peel-Away sheath and cat heter tailored to the appropriate length and advanced such that the distal tip is at the cavoatrial j unction. Spot image was obtained verifying placement. Catheter was fixed to the skin and a sterile dressing was placed following hemostasis. Catheter was aspirated and flushed with saline. Patient w as discharged in stable condition without complication.Maximal barrier technique is utilized. Ultras ound image is documented on the chart. Ultrasound used with sterile technique. Fluoro time and fluoroscopic images submitted to document procedure: 538 intraoperative C-arm images, 1.3 minutes fluoroscopy time IMPRESSION: STATUS POST ULTRASOUND AND FLUOROSCOPIC GUIDED PICC LINE PLACEMENT, READY FOR USE. THIS PROCEDURE WAS PERFORMED BY THE UNDERSIGNED.
--- NOTE | 2018-04-15 11:44 | PN ---
PROGRESS NOTE DATE OF SERVICE: 04/14/2018 PRESENTING COMPLAINT: Pain in different joints. INTERVAL HISTORY: This is a patient who presented with recent infection of the left foot, then in the right knee. CRP had been up, been on antibiotics. PICC line was ordered by Dr. Stark for home IV antibiotics. No specific crystals were obtained from the right knee. The patient is tolerating his diet. REVIEW OF SYSTEMS: Review of systems done for constitutional, cardiovascular, GI, pulmonary; relevant findings as above. CURRENT MEDICATIONS: Current medications include IV vancomycin. PHYSICAL EXAMINATION: On examination, temperature 97.5, pulse 80, respirations 16, blood pressure 154/106, pulse ox 98% on room air. GENERAL APPEARANCE: Lying in bed, comfortable. EYES: Pupils equal. Conjunctivae normal. HEENT: External appearance of nose and ears normal. Oral cavity normal. NECK: JVD not raised. Mass not palpable. RESPIRATORY: Effort normal. Lungs are clear. CARDIOVASCULAR: First and second sounds normal. No edema. ABDOMEN: Soft, nontender. Liver and spleen not palpable. EXTREMITIES: Right knee minimal swelling tenderness. Left foot minimal swelling, decreased tenderness. INVESTIGATIONS: No blood work from today. The patient's right knee fluid showing nucleated cells 8520, elongated, polygonal to irregular platelike polarizable crystals. ASSESSMENT: 1. This is a patient who presented with recent infection of the left foot, which did respond to clindamycin. Pain, swelling, infection of the right knee is unclear if this was septic arthritis or systemic infection manifestation. 2. Paroxysmal atrial fibrillation, chronically on Coumadin. 3. Essential hypertension. 4. Hypoalbuminemia likely reactive. 5. Recent left arm fracture, in a cast. PLAN: Care was discussed with the patient and . Await further determination by Dr. Stark in terms of antibiotics. Looks like patient is going home on IV antibiotics. MMODL / IJN: [id number] /
[2018-04-15 11:53] LABS: Basophils % (A) 0 %; Eosinophils # (A) 0.2 k/uL (0-0.7); Eosinophils % (A) 3 %; HCT 36.2 % (39.0-53.0); HGB 11.5 gm/dL (13.0-17.5); Hypochromasia Slight; Lymphocytes # (A) 0.9 k/uL (1.0-4.8); Lymphocytes % (A) 14 %; MCH 28.2 pg (25.0-35.0); MCHC 31.8 g/dL (31.0-37.0); MCV 88.7 fL (80.0-100.0); Mean Platelet Volume 7.3; Monocytes # (A) 0.5 k/uL (0-1.0); Monocytes % (A) 8 %; Neutrophils # (A) 4.8 k/uL (1.3-7.7); Neutrophils % (A) 73 %; Platelet Count 300 k/uL (150-450); RBC 4.08 m/uL (4.30-5.90); RDW 13.9 % (11.5-15.5); WBC 6.6 k/uL (3.8-10.6)
[2018-04-15] MEDS: MULTIVITAMINS, THERA 1 EACH TAB PO SCH (13:34)
[2018-04-15] MEDS: WARFARIN 5 MG TAB PO SCH (17:10)
--- NOTE | 2018-04-16 00:12 | P.PN ---
Subjective Progress Note Date: 04/15/18 78 -year-old male who has a history of underlying coronary artery disease with atrial fibrillation on anticoagulation, is otherwise healthy, was at his summer cottage on [facility]. He was working with his son repairing the dock he was [place] the [place] in [place] utilizing a battery power drill. The drill bit jammed in the drill motor and battery swung fracturing his left arm. He was cared for in the [facility] where he had cast placed. He did have some arm swelling which required a cast to be split. Since then is doing relatively well without a lot of pain to the arm. Since that time though he has developed difficulties originally with some significant pain and swelling to the left ankle. He was again seen in the emergency center given some pain medications as well as clindamycin. Within days that started to improve and was able to get back to some activity. There full-time residence is here in the [facility] and the lower back home when he noticed several days ago increasing amount of swelling to the right knee. It became so severe that he was not able to bear weight and consequently presented to Hospital, was seen by orthopedic surgery and the site was aspirated. With evidence of gram-positive cocci in that fluid the infectious diseases consultation was requested. The patient is still quite uncomfortable due to the pain to the knee, low-grade fevers have improved. Pain to the left arm is very tolerable and the left ankle is about at baseline. He does of history of a left total knee arthroplasty and that has been giving him no pain or discomfort at this time. 04/15/2018 the patient is now having further improvement of his therapy with antibiotic therapy. Orthopedics has been requested to evaluate the fracture to the arm and to further evaluate the knee and ankle. Patient feels considerably better today. Within 4 to his discharge soon. Objective - Vital Signs Vital signs: Vital Signs Temp 96.5 F L 04/15/18 23:00 Pulse 95 04/15/18 23:00 Resp 18 04/15/18 23:00 BP 127/88 04/15/18 23:00 Pulse Ox 99 04/15/18 23:00 Intake & Output 04/15/18 04/15/18 04/16/18 06:59 18:59 06:59 Intake Total 250 160 Output Total 400 Balance 250 -240 Intake: Intake, IV Titration 250 Amount Vancomycin 1,500 mg In 250 Sodium Chloride 0.9% 250 ml @ 125 mls/hr IVPB Q12H [facility] Rx#:[id number] Oral 160 Output: Urine 400 Other: Voiding Method Toilet Toilet # Voids 2 4 - Exam 78-year-old male minimally uncomfortable of a thin build HEENT: Anicteric conjunctiva are pink and moist nasal mucosa grossly intact without significant lesions, there is no thrush. Neck: The neck is supple without significant lymphadenopathy or thyromegaly. Lungs: Good bilateral air entry without significant crackles or wheezing. There is no significant bronchial sounds. There is no egophony or dullness. Heart: Irregularly irregular with an audible S1 and S2 no S3 soft S4 no distinct murmur click or rub. PMI was nondisplaced Abdomen: Positive bowel sounds soft and nontender without palpable masses or organomegaly. There was no guarding or rebound. Extremities: The right arm is without any acute difficulties. Left arm has the cast in place. The hands without swelling. He has intact sensation throughout all the fingers and has intact motion throughout all the fingers of the hand. The left lower extremity shows evidence of the prior left total knee arthroplasty site. The knee is without swelling or discomfort. There is no warmth or erythema. The left ankle which it had some significant swelling has improved but is not quite the same size yet as the right ankle. It however is without significant pain with range of motion. The right knee is still swollen compared to the left. It is cracking still operator with range of motion and with weightbearing. There is some warmth there is still some palpable effusion. There are no other lesions on the knee. Neuro: Awake alert oriented to person place and time. There are no acute new gross focal sensory motor deficits. - Labs CBC & Chem 7: 04/15/18 07:45 04/15/18 07:45 Labs: Abnormal Lab Results - Last 24 Hours (Table) 04/15/18 04/15/18 04/15/18 Range/Units 07:45 07:45 07:45 RBC 4.08 L (4.30-5.90) m/uL Hgb 11.5 L (13.0-17.5) gm/dL Hct 36.2 L (39.0-53.0) % Lymphocytes # 0.9 L (1.0-4.8) k/uL PT 17.0 H (9.0-12.0) sec INR 1.9 H (<1.2) Glucose 100 H (74-99) mg/dL C-Reactive Protein (<10.0) mg/L 04/15/18 Range/Units 07:45 RBC (4.30-5.90) m/uL Hgb (13.0-17.5) gm/dL Hct (39.0-53.0) % Lymphocytes # (1.0-4.8) k/uL PT (9.0-12.0) sec INR (<1.2) Glucose (74-99) mg/dL C-Reactive Protein 53.7 H (<10.0) mg/L Microbiology - Last 24 Hours (Table) 04/12/18 14:00 Blood Culture - Preliminary Blood No Growth after 72 hours Laboratory Results WBC 6.6 k/uL (3.8-10.6) 04/15/18 07:45 RBC 4.08 m/uL (4.30-5.90) L 04/15/18 07:45 Hgb 11.5 gm/dL (13.0-17.5) L 04/15/18 07:45 Hct 36.2 % (39.0-53.0) L 04/15/18 07:45 MCV 88.7 fL (80.0-100.0) 04/15/18 07:45 MCH 28.2 pg (25.0-35.0) 04/15/18 07:45 MCHC 31.8 g/dL (31.0-37.0) 04/15/18 07:45 RDW 13.9 % (11.5-15.5) 04/15/18 07:45 Plt Count 300 k/uL (150-450) 04/15/18 07:45 Neutrophils % 73 % 04/15/18 07:45 Lymphocytes % 14 % 04/15/18 07:45 Monocytes % 8 % 04/15/18 07:45 Eosinophils % 3 % 04/15/18 07:45 Basophils % 0 % 04/15/18 07:45 Neutrophils # 4.8 k/uL (1.3-7.7) 04/15/18 07:45 Lymphocytes # 0.9 k/uL (1.0-4.8) L 04/15/18 07:45 Monocytes # 0.5 k/uL (0-1.0) 04/15/18 07:45 Eosinophils # 0.2 k/uL (0-0.7) 04/15/18 07:45 Basophils # 0.0 k/uL (0-0.2) 04/15/18 07:45 Hypochromasia Slight 04/15/18 07:45 PT 17.0 sec (9.0-12.0) H 04/15/18 07:45 INR 1.9 (<1.2) H 04/15/18 07:45 APTT 44.0 sec (22.0-30.0) H 04/12/18 14:00 D-Dimer 0.78 mg/L FEU (<0.60) H 04/13/18 16:41 Sodium 142 mmol/L (137-145) 04/15/18 07:45 Potassium 3.9 mmol/L (3.5-5.1) 04/15/18 07:45 Chloride 106 mmol/L (98-107) 04/15/18 07:45 Carbon Dioxide 28 mmol/L (22-30) 04/15/18 07:45 Anion Gap 8 mmol/L 04/15/18 07:45 BUN 18 mg/dL (9-20) 04/15/18 07:45 Creatinine 0.80 mg/dL (0.66-1.25) 04/15/18 07:45 Est GFR (CKD-EPI)AfAm >90 (>60 ml/min/1.73 sqM) 04/15/18 07:45 Est GFR (CKD-EPI)NonAf 85 (>60 ml/min/1.73 sqM) 04/15/18 07:45 Glucose 100 mg/dL (74-99) H 04/15/18 07:45 Plasma Lactic Acid Roshan 1.4 mmol/L (0.7-2.0) 04/12/18 14:00 Uric Acid 5.6 mg/dL (3.5-8.5) 04/12/18 14:00 Calcium 8.5 mg/dL (8.4-10.2) 04/15/18 07:45 Magnesium 2.0 mg/dL (1.6-2.3) 04/13/18 09:02 Total Bilirubin 0.4 mg/dL (0.2-1.3) 04/13/18 09:02 AST 20 U/L (17-59) 04/13/18 09:02 ALT 35 U/L (21-72) 04/13/18 09:02 Alkaline Phosphatase 64 U/L (38-126) 04/13/18 09:02 Troponin I <0.012 ng/mL (0.000-0.034) 04/13/18 22:39 C-Reactive Protein 53.7 mg/L (<10.0) H 04/15/18 07:45 Total Protein 5.4 g/dL (6.3-8.2) L 04/13/18 09:02 Albumin 2.7 g/dL (3.5-5.0) L 04/13/18 09:02 Fluid Source Synovial 04/12/18 16:40 Fluid Color Yellow 04/12/18 16:40 Fluid Appearance Cloudy 04/12/18 16:40 Fluid RBC 0 /uL 04/12/18 16:40 Fluid Nucleated Cells 8520 /uL 04/12/18 16:40 Fluid Polynuclear WBCs 95 % 04/12/18 16:40 Fluid Mononuclear WBCs 5 % 04/12/18 16:40 Synovial Source Right Knee 04/12/18 16:40 Synovial Crystals 04/12/18 16:40 Vancomycin Trough 18.5 ug/mL 04/14/18 16:52 Microbiology 04/12/18 14:00 Blood Blood Culture - Preliminary No Growth after 72 hours 04/12/18 16:40 Knee - Right Gram Stain - Preliminary 04/12/18 16:40 Knee - Right Body Fluid Culture - Preliminary Assessment and Plan (1) Elevated C-reactive protein (CRP) Current Visit: Yes Status: Acute Code(s): R79.82 - ELEVATED C-REACTIVE PROTEIN (CRP) SNOMED Code(s): 367169388452642 (2) Knee effusion, right Current Visit: Yes Status: Acute Code(s): M25.461 - EFFUSION, RIGHT KNEE SNOMED Code(s): 117208803 (3) Septic arthritis of knee, right Narrative/Plan: 78-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 His recent trauma to his left arm resulting in a fracture requiring casting. The casting need some loosening because of some discomfort. The arm is not doing quite well. He did have a sudden onset of severe pain to the left ankle which is now resolved mostly. But then developed is to begin pain and swelling to the right knee which made it impossible to bear weight. He has been seen by rheumatology and it is not thought that there is underlying polyarthritis. The patient has had the aspiration to the right knee. A turbid material was withdrawn that had a steady amount of white blood cells, no evidence of crystals. Gram stain has gram-positive cocci and culture is in process. It appears that the original trauma allowed seeding of the other joints. Partially treated with oral clindamycin therapy. At this time we await the culture results but utilizing vancomycin for now. At this time it appears she will need outpatient intravenous antibiotic therapy for clearance of the significant infectious process. He fortunately is feeling slightly better today. His temperature has improved. The patient may benefit from orthopedic consultation if the knee does not rapidly improve for repeated aspiration. Blood cultures are negative so far. 04/15/2018 reveals the patient to be having improvement with current antibiotic therapy and supportive care. He is doing well with vancomycin therapy. The aspirate from the knee has gram-positive cocci but they are not growing at this point in time. He was pretreated with clindamycin therapy likely result in the negative culture at this time. Patient however has evidence of a septic arthritis and will require a total of 40 days of antibiotic therapy. PICC line has been placed and he will be heading to the outpatient office to complete his course of antibiotic therapy. Orthopedic consult is pending to ensure there is no difficulties with that left arm fracture and had no further aspiration needs to be performed to the right near left ankle area. Current Visit: Yes Status: Acute Code(s): M00.9 - PYOGENIC ARTHRITIS, UNSPECIFIED SNOMED Code(s): 140376945
--- NOTE | 2018-04-16 06:09 | PN ---
PROGRESS NOTE DATE OF SERVICE: 04/15/2018 PRESENTING COMPLAINT: Infection different joints. INTERVAL HISTORY: This patient presented with recent infection of the left foot and looks like patient had a hematogenous spread and septic arthritis of the right knee with some clinical picture being distorted because patient already was on clindamycin. Patient did get a PICC line. Awaiting cultures to be finalized. Pain is controlled. REVIEW OF SYSTEMS: Review of systems done for constitutional, cardiovascular, GI, pulmonary; relevant findings as above. CURRENT MEDICATIONS: Current medications are reviewed that include IV vancomycin. PHYSICAL EXAMINATION: On examination, afebrile, pulse 98, respiration 18, blood pressure 124/84, pulse ox 97% on room air. GENERAL APPEARANCE: Lying in bed, comfortable. EYES: Pupils equal. Conjunctivae normal. HENT: External appearance of nose and ears normal. Oral cavity normal. NECK: JVD not raised. Mass not palpable. RESPIRATORY: Effort normal. Lungs are clear. CARDIOVASCULAR: First and second sounds normal. No edema. ABDOMEN: Soft. Liver and spleen not palpable. MUSCULOSKELETAL: Right knee with minimal pain and swelling. Left arm in a cast. Left foot with minimal swelling. INVESTIGATIONS: White count 6.6. INR 1.9. Potassium 3.9. ASSESSMENT: 1. Acute septic arthritis of the right knee with hematogenous spread probably from the left ankle. 2. Recent left ankle foot cellulitis. 3. Paroxysmal atrial fibrillation chronically on Coumadin. 4. Essential hypertension. 5. Hypoalbuminemia likely reactive. 6. Left distal arm fracture, arm in a cast. PLAN: I did consult [facility] this morning. Patient's cultures are being awaited and then Dr. Stark can finalize the discharge antibiotics. Care was discussed with the patient and . Questions were answered. I also discussed with Dr. Stark earlier today. MMODL / IJN: [id number] /
[2018-04-16] MEDS: VANCOMYCIN 1,500 MG in SODIUM CHLORIDE 0.9% 250 ML IVPB SCH (06:10)
[2018-04-16 06:43] VITALS: BP 124/83; PULSE 87; TEMP 98.3
[2018-04-16 06:51] LABS: INR 2.4 (<1.2); Prothrombin Time 21.3 sec (9.0-12.0)
[2018-04-16] MEDS: ASCORBIC ACID 500 MG TAB PO SCH (08:42)
[2018-04-16] MEDS: MULTIVITAMINS, THERA 1 EACH TAB PO SCH (08:42)
[2018-04-16] MEDS: amLODIPine 10 MG TAB PO SCH (08:43)
[2018-04-16] MEDS: CHOLECALCIFEROL 1,000 UNIT TAB PO SCH (08:43)
--- NOTE | 2018-04-16 23:05 | P.PN ---
Subjective Progress Note Date: 04/16/18 78 -year-old male who has a history of underlying coronary artery disease with atrial fibrillation on anticoagulation, is otherwise healthy, was at his summer cottage on [facility]. He was working with his son repairing the dock he [place] in [place] utilizing a battery power drill. The drill bit jammed in the drill motor and battery swung fracturing his left arm. He was cared for in the [facility] where he had cast placed. He did have some arm swelling which required a cast to be split. Since then is doing relatively well without a lot of pain to the arm. Since that time though he has developed difficulties originally with some significant pain and swelling to the left ankle. He was again seen in the emergency center given some pain medications as well as clindamycin. Within days that started to improve and was able to get back to some activity. There full-time residence is here in the [facility] and the lower back home when he noticed several days ago increasing amount of swelling to the right knee. It became so severe that he was not able to bear weight and consequently presented to Hospital, was seen by orthopedic surgery and the site was aspirated. With evidence of gram-positive cocci in that fluid the infectious diseases consultation was requested. The patient is still quite uncomfortable due to the pain to the knee, low-grade fevers have improved. Pain to the left arm is very tolerable and the left ankle is about at baseline. He does of history of a left total knee arthroplasty and that has been giving him no pain or discomfort at this time. 04/15/2018 the patient is now having further improvement of his therapy with antibiotic therapy. Orthopedics has been requested to evaluate the fracture to the arm and to further evaluate the knee and ankle. Patient feels considerably better today. Looks forward to his discharge soon. 04/16/2018 patient is further improved. With antibiotic therapy his pain is improved. He overall is 90 difficulties with fever chills rigors or sweats. The pain and swelling to the left ankle has improved and the right knee pain has improved. Objective - Vital Signs Vital signs: Vital Signs Temp 98.3 F 04/16/18 06:43 Pulse 87 04/16/18 06:43 Resp 18 04/16/18 06:43 BP 124/83 04/16/18 06:43 Pulse Ox 98 04/16/18 06:43 Intake & Output 04/16/18 04/16/18 04/17/18 06:59 18:59 06:59 Intake Total 160 160 Output Total 400 Balance -240 160 Weight 79.379 kg Intake: Oral 160 160 Output: Urine 400 Other: Voiding Method Toilet Toilet # Voids 2 # Bowel Movements 0 - Exam 78-year-old male minimally uncomfortable of a thin build HEENT: Anicteric conjunctiva are pink and moist nasal mucosa grossly intact without significant lesions, there is no thrush. Neck: The neck is supple without significant lymphadenopathy or thyromegaly. Lungs: Good bilateral air entry without significant crackles or wheezing. There is no significant bronchial sounds. There is no egophony or dullness. Heart: Irregularly irregular with an audible S1 and S2 no S3 soft S4 no distinct murmur click or rub. PMI was nondisplaced Abdomen: Positive bowel sounds soft and nontender without palpable masses or organomegaly. There was no guarding or rebound. Extremities: The right arm is without any acute difficulties. Left arm has the cast in place. The hands without swelling. He has intact sensation throughout all the fingers and has intact motion throughout all the fingers of the hand. The left lower extremity shows evidence of the prior left total knee arthroplasty site. The knee is without swelling or discomfort. There is no warmth or erythema. The left ankle which it had some significant swelling has improved but is not quite the same size yet as the right ankle. It however is without significant pain with range of motion. The right knee is still swollen compared to the left. It is still operator gin with range of motion and with weightbearing. There is some warmth there is still some palpable effusion. There are no other lesions on the knee. Neuro: Awake alert oriented to person place and time. There are no acute new gross focal sensory motor deficits. - Labs CBC & Chem 7: 04/15/18 07:45 04/15/18 07:45 Labs: Abnormal Lab Results - Last 24 Hours (Table) 04/16/18 Range/Units 06:00 PT 21.3 H (9.0-12.0) sec INR 2.4 H (<1.2) Microbiology - Last 24 Hours (Table) 04/12/18 16:40 Gram Stain - Preliminary Knee - Right Body Fluid Culture - Preliminary 04/12/18 14:00 Blood Culture - Preliminary Blood No Growth after 96 hours Laboratory Results WBC 6.6 k/uL (3.8-10.6) 04/15/18 07:45 RBC 4.08 m/uL (4.30-5.90) L 04/15/18 07:45 Hgb 11.5 gm/dL (13.0-17.5) L 04/15/18 07:45 Hct 36.2 % (39.0-53.0) L 04/15/18 07:45 MCV 88.7 fL (80.0-100.0) 04/15/18 07:45 MCH 28.2 pg (25.0-35.0) 04/15/18 07:45 MCHC 31.8 g/dL (31.0-37.0) 04/15/18 07:45 RDW 13.9 % (11.5-15.5) 04/15/18 07:45 Plt Count 300 k/uL (150-450) 04/15/18 07:45 Neutrophils % 73 % 04/15/18 07:45 Lymphocytes % 14 % 04/15/18 07:45 Monocytes % 8 % 04/15/18 07:45 Eosinophils % 3 % 04/15/18 07:45 Basophils % 0 % 04/15/18 07:45 Neutrophils # 4.8 k/uL (1.3-7.7) 04/15/18 07:45 Lymphocytes # 0.9 k/uL (1.0-4.8) L 04/15/18 07:45 Monocytes # 0.5 k/uL (0-1.0) 04/15/18 07:45 Eosinophils # 0.2 k/uL (0-0.7) 04/15/18 07:45 Basophils # 0.0 k/uL (0-0.2) 04/15/18 07:45 Hypochromasia Slight 04/15/18 07:45 PT 21.3 sec (9.0-12.0) H 04/16/18 06:00 INR 2.4 (<1.2) H 04/16/18 06:00 APTT 44.0 sec (22.0-30.0) H 04/12/18 14:00 D-Dimer 0.78 mg/L FEU (<0.60) H 04/13/18 16:41 Sodium 142 mmol/L (137-145) 04/15/18 07:45 Potassium 3.9 mmol/L (3.5-5.1) 04/15/18 07:45 Chloride 106 mmol/L (98-107) 04/15/18 07:45 Carbon Dioxide 28 mmol/L (22-30) 04/15/18 07:45 Anion Gap 8 mmol/L 04/15/18 07:45 BUN 18 mg/dL (9-20) 04/15/18 07:45 Creatinine 0.80 mg/dL (0.66-1.25) 04/15/18 07:45 Est GFR (CKD-EPI)AfAm >90 (>60 ml/min/1.73 sqM) 04/15/18 07:45 Est GFR (CKD-EPI)NonAf 85 (>60 ml/min/1.73 sqM) 04/15/18 07:45 Glucose 100 mg/dL (74-99) H 04/15/18 07:45 Plasma Lactic Acid Roshan 1.4 mmol/L (0.7-2.0) 04/12/18 14:00 Uric Acid 5.6 mg/dL (3.5-8.5) 04/12/18 14:00 Calcium 8.5 mg/dL (8.4-10.2) 04/15/18 07:45 Magnesium 2.0 mg/dL (1.6-2.3) 04/13/18 09:02 Total Bilirubin 0.4 mg/dL (0.2-1.3) 04/13/18 09:02 AST 20 U/L (17-59) 04/13/18 09:02 ALT 35 U/L (21-72) 04/13/18 09:02 Alkaline Phosphatase 64 U/L (38-126) 04/13/18 09:02 Troponin I <0.012 ng/mL (0.000-0.034) 04/13/18 22:39 C-Reactive Protein 53.7 mg/L (<10.0) H 04/15/18 07:45 Total Protein 5.4 g/dL (6.3-8.2) L 04/13/18 09:02 Albumin 2.7 g/dL (3.5-5.0) L 04/13/18 09:02 Fluid Source Synovial 04/12/18 16:40 Fluid Color Yellow 04/12/18 16:40 Fluid Appearance Cloudy 04/12/18 16:40 Fluid RBC 0 /uL 04/12/18 16:40 Fluid Nucleated Cells 8520 /uL 04/12/18 16:40 Fluid Polynuclear WBCs 95 % 04/12/18 16:40 Fluid Mononuclear WBCs 5 % 04/12/18 16:40 Synovial Source Right Knee 04/12/18 16:40 Synovial Crystals 04/12/18 16:40 Vancomycin Trough 18.5 ug/mL 04/14/18 16:52 Microbiology 04/12/18 16:40 Knee - Right Gram Stain - Preliminary 04/12/18 16:40 Knee - Right Body Fluid Culture - Preliminary 04/12/18 14:00 Blood Blood Culture - Preliminary No Growth after 96 hours Assessment and Plan (1) Elevated C-reactive protein (CRP) Status: Acute Code(s): R79.82 - ELEVATED C-REACTIVE PROTEIN (CRP) SNOMED Code(s): 799542658302372 (2) Knee effusion, right Status: Acute Code(s): M25.461 - EFFUSION, RIGHT KNEE SNOMED Code(s): 646837351 (3) Septic arthritis of knee, right Narrative/Plan: 78-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 His recent trauma to his left arm resulting in a fracture requiring casting. The casting need some loosening because of some discomfort. The arm is not doing quite well. He did have a sudden onset of severe pain to the left ankle which is now resolved mostly. But then developed is to begin pain and swelling to the right knee which made it impossible to bear weight. He has been seen by rheumatology and it is not thought that there is underlying polyarthritis. The patient has had the aspiration to the right knee. A turbid material was withdrawn that had a steady amount of white blood cells, no evidence of crystals. Gram stain has gram-positive cocci and culture is in process. It appears that the original trauma allowed seeding of the other joints. Partially treated with oral clindamycin therapy. At this time we await the culture results but utilizing vancomycin for now. At this time it appears she will need outpatient intravenous antibiotic therapy for clearance of the significant infectious process. He fortunately is feeling slightly better today. His temperature has improved. The patient may benefit from orthopedic consultation if the knee does not rapidly improve for repeated aspiration. Blood cultures are negative so far. 04/15/2018 reveals the patient to be having improvement with current antibiotic therapy and supportive care. He is doing well with vancomycin therapy. The aspirate from the knee has gram-positive cocci but they are not growing at this point in time. He was pretreated with clindamycin therapy likely result in the negative culture at this time. Patient however has evidence of a septic arthritis and will require a total of 40 days of antibiotic therapy. PICC line has been placed and he will be heading to the outpatient office to complete his course of antibiotic therapy. Orthopedic consult is pending to ensure there is no difficulties with that left arm fracture and had no further aspiration needs to be performed to the right near left ankle area. 04/16/2018 patient continues to have improvement with the current antibiotic therapy. The fracture to the left arm is only minimal discomfort and will follow-up with orthopedics in the outpatient setting. As far as the right knee the pain is improved and he is now able to bear weight with a walker. Left ankle pain is also improving. The significant swelling to the joints is improving. As noted the culture showed evidence of gram-positive cocci but it is without growth. Likely because of his antibiotic pretreatment with clindamycin or having negative cultures at this time. Regardless the patient had fever swelling purulent material within the joint and evidence of anterior and constantly will be treated as a septic arthritis. We'll plan a 42 day course of antibiotic therapy with vancomycin. He will come to the office for his infusions which will begin as of tomorrow. Status: Acute Code(s): M00.9 - PYOGENIC ARTHRITIS, UNSPECIFIED SNOMED Code(s ): 310722181
[2018-04-17] MEDS ORDERED: VANCOMYCIN TROUGH DUE 1 EACH MISC MISCELLANE ONE (05:00)
--- NOTE | 2018-04-17 05:51 | DS ---
DISCHARGE SUMMARY DATE OF ADMISSION: 04/12/2018. DATE OF DISCHARGE: April 16, 2018 FINAL DIAGNOSES: 1. Acute septic arthritis of the right knee, probably from the left ankle. 2. Recent left ankle foot cellulitis. 3. Paroxysmal atrial fibrillation chronically on Coumadin. 4. Essential hypertension. 5. Hypoalbuminemia likely reactive. 6. Left distal arm fracture, arm in a cast. HOSPITAL COURSE: This very pleasant gentleman recently was treated with clindamycin for left foot infection. Subsequently, his right knee also swelled up. It is believed the patient has septic arthritis of the right knee. The patient responding to IV vancomycin . Right knee did show some non gouty crystals and showed some rare gram-positive cocci. Discussed with Dr. Stark. The patient will be getting antibiotics. Also discussed with the patient and . On exam lungs are clear. Decreased swelling of the right knee and the ankle. DISCHARGE MEDICATIONS: 1. Norvasc 10 mg p.o. daily. 2. Vitamin C 1000 mg p.o. daily. 3. Vitamin D3 1000 units p.o. daily. 4. Fish oil 200 mg p.o. daily. 5. Glucosamine chondroitin 1 tablet p.o. daily. 6. Multivitamin 1 tablet p.o. daily. 7. Selenium 100 mcg p.o. daily. 8. Coumadin 5 mg as directed. 9. Zinc 50 mg p.o. daily. 10.Ultram 50-100 mg q.4 p.r.n. 11.Vancomycin 750 IV piggyback q24 hours x 40 doses. Follow up with Dr. Joel in 3 days, Dr. Anne on April 17, 2018, Dr. Stark in 2 weeks, 04/17/18, Dr. Miller in 1 week. The patient has got a PICC line in place. The patient will be getting his antibiotics at Dr. Stark office as arranged. Copy to Dr. Joel. ALEX / EDUARDON: [id number] /
[2018-04-20] MEDS ORDERED: WARFARIN 2.5 MG TAB PO SCH (18:00)
== END 2018-04-16 16:36 | disposition home or self-care (01) | DRG 549 ==
LOC: EC 13:09 → 4MS4W 18:45
PROVIDERS: ADMIT Hospitalist; ATTEND Hospitalist
PROC: 02HV33Z Insertion of Infusion Device into Superior Vena Cava, Percutaneous Approach (ICD-10-PCS; principal; 2018-04-15)
DX: M00.9 Pyogenic arthritis, unspecified (principal); S42.302A Unspecified fracture of shaft of humerus, left arm, initial encounter for closed fracture; I48.1 Persistent atrial fibrillation; E88.09 Other disorders of plasma-protein metabolism, not elsewhere classified; I10 Essential (primary) hypertension; I25.10 Atherosclerotic heart disease of native coronary artery without angina pectoris; I48.0 Paroxysmal atrial fibrillation; R79.1 Abnormal coagulation profile; W57.XXXA Bitten or stung by nonvenomous insect and other nonvenomous arthropods, initial encounter; Z79.01 Long term (current) use of anticoagulants; Z79.899 Other long term (current) drug therapy; Z85.46 Personal history of malignant neoplasm of prostate; Z96.652 Presence of left artificial knee joint; Z88.0 Allergy status to penicillin; Z88.2 Allergy status to sulfonamides
CPT/HCPCS: 36415; 36569; 76937; 77001; 80048; 80053; 80202; 83605; 83735; 84484; 84550; 85025; 85379; 85610; 85730; 86140; 87040; 87070; 87205; 89050; 89060; 93005; 93306; 93970; 96365; 96366; 96372; 96375; 99285

== ENCOUNTER → 2020-02-21 | Outpatient (CLI) | payer MEDICARE, BC ==
--- NOTE | 2020-02-21 13:25 | NM ---
EXAMINATION TYPE: NM bone scan whole body DATE OF EXAM: 02/21/2020 COMPARISON: NONE HISTORY: Prostate cancer C61 Delayed whole-body scanning was performed following the injection of 21.6 mCi Tc 99m MDP. Images acq uired 3.5 hours post injection. FINDINGS: There is degenerative uptake about the shoulders, sternoclavicular joints, bilateral hands and wrists , knees and ankles. Focal increased uptake is noted to involve the right L5 pedicle which may be dege nerative in nature. Degenerative uptake is also seen about the cervical, thoracic and lumbar spine. N o additional areas of abnormal uptake seen. Postoperative changes left knee. IMPRESSION: 1. Degenerative uptake without definite evidence for metastatic disease although radiographic correla tion for focal increased L5 uptake is advised.
--- NOTE | 2020-02-21 13:50 | CT ---
EXAMINATION TYPE: CT ChestAbdPelvis w con DATE OF EXAM: 02/21/2020 COMPARISON: Nuclear medicine bone scan dated 02/21/2020 and MRI of the pelvis dated 09/10/2019 HISTORY: follow up prostate ca CT DLP: 866 mGycm. Automated Exposure Control for Dose Reduction was Utilized. CONTRAST: CT scan of the thorax, abdomen and pelvis is performed with IV Contrast, patient injected with 100 mL of Isovue 300. FINDINGS: LUNGS: The lungs are grossly clear, there is no concerning parenchymal mass or nodule identified. T here is no pleural effusion or pneumothorax seen. The tracheobronchial tree is patent. There is righ t hemidiaphragm elevation. Right basilar subsegmental atelectasis is seen. MEDIASTINUM: There are no greater than 1 cm hilar or mediastinal lymph nodes. No pericardial effusi on is seen. Incidentally noted bovine aortic arch, normal anatomic variant. Severe coronary artery c alcifications of the left anterior descending coronary artery and other coronary calcifications also seen. Calcified benign mediastinal granulomas. OTHER: 1.2 cm nodule of the posterior right thyroid lobe is heterogenous. LIVER/GB: Hepatic parenchyma is diffusely hypoattenuated in comparison to that of the spleen, most co mmonly seen in hepatic steatosis. This finding limits evaluation for hepatic masses. Some 5 mm too sm all to accurately characterize hepatic lesions are seen (2 in number on images 42 and 35). Caudate lo be lesion is also too small to accurately characterize and image 53. No intrahepatic biliary ductal d ilatation. No cholelithiasis. PANCREAS: No significant abnormality is seen. SPLEEN: No significant abnormality is seen. ADRENALS: No significant abnormality is seen. KIDNEYS: Too small to accurately characterize subcentimeter bilateral renal cortical lesions are best seen on delayed images. Left renal sinus cysts are also best seen on delayed images. No hydronephros is of either kidney. BOWEL: Numerous colonic diverticula are seen without pericolonic fat stranding. Appendix is contrast- filled and within normal limits. GENITAL ORGANS: Prostate gland is surgically absent. LYMPH NODES: Shotty periaortic lymph nodes are less than 1 cm in short axis. No greater than 1cm abdo michelle or pelvic lymph nodes are appreciated. OSSEOUS STRUCTURES: Dextroscoliosis of the lumbar spine is evident with severe multilevel degenerativ e disc disease. There is very minimal grade 1 anterolisthesis of L4 on L5 likely due to hypertrophic facet change. No suspicious sclerotic lesion is seen at L5 as a focal increased area of radiotracer w as seen on the prior nuclear medicine scan although was questioned to be degenerative at that time.. OTHER: Severe atherosclerosis of the abdominal aorta and its branches. Left inguinal canal is patulou s and fat filled. Urinary bladder is incompletely distended and therefore suboptimally evaluated. IMPRESSION: 1. No convincing evidence of metastasis in the chest, abdomen, or pelvis. No suspicious adenopathy, p articularly in the inguinal and periaortic regions. No suspicious sclerotic lesion identified. Advanc ed degenerative change of the spine. 2. Heterogenous 1.9 cm right thyroid nodule. Thyroid ultrasound could be considered for further evalu ation. 3. Too small to accurately characterize subcentimeter lesions of the liver and kidneys, colonic diver ticulosis and hepatic steatosis are incidentally seen.
== END | disposition home or self-care (01) ==
LOC: RADCTMAIN 07:53
PROVIDERS: ATTEND Internal Medicine Hematology & Oncology
DX: E04.1 Nontoxic single thyroid nodule (principal); M15.9 Polyosteoarthritis, unspecified; C61 Malignant neoplasm of prostate; Z88.0 Allergy status to penicillin; Z88.2 Allergy status to sulfonamides
CPT/HCPCS: 82565; 84520; 71260; 74177; 36415; 78306; A9503; Q9967 ×2

== ENCOUNTER 2020-06-22 02:25 | Inpatient (IN) | payer MEDICARE, BC ==
--- NOTE | 2020-06-22 02:32 | ED ---
Abdominal Pain HPI - General Stated Complaint: Constipation Time Seen by Provider: 06/22/20 02:31 Source: RN notes reviewed, old records reviewed Limitations: no limitations - History of Present Illness Initial Comments: This is a 78-year-old male DF presents today for evaluation regards to severe abdominal pain. History of pancreatic cancer with surgery. No other abdominal surgeries. No fevers no travel history. Patient's pain is severe nausea no vomiting bowel movement between 13 days ago MD Complaint: abdominal pain -: hour(s) Location: diffuse, epigastric, suprapubic Radiation: epigastric, suprapubic Migration to: no migration Severity: severe Severity scale (1-10): 8 Quality: stabbing, aching Consistency: constant Improves With: nothing Worsens With: nothing Associated Symptoms: nausea - Related Data Home Medications Medication Instructions Recorded Confirmed amLODIPine BESYLATE [Norvasc] 10 mg PO DAILY 02/21/14 04/12/18 Ascorbic Acid [Vitamin C] 1,000 mg PO DAILY 04/12/18 04/12/18 Cholecalciferol [Vitamin D3 (25 1,000 unit PO DAILY 04/12/18 04/12/18 Mcg = 1000 Iu)] Fish Oil/Dha/Epa [Fish Oil 1,200 1 cap PO DAILY 04/12/18 04/12/18 mg Fish Oil] Glucosam/Cornelius-Msm1/C/Erik/Bosw 1 tab PO DAILY 04/12/18 04/12/18 [Glucosamine-Chondroitin Tablet] Multivitamins, Thera [Multivitamin 1 tab PO DAILY 04/12/18 04/12/18 (formulary)] Selenium 100 mcg PO DAILY 04/12/18 04/12/18 Warfarin [Coumadin] 5 mg PO DIRECTED 04/12/18 04/12/18 Zinc 50 mg PO DAILY 04/12/18 04/12/18 traMADol HCL [Ultram] 50 - 100 mg PO Q4H PRN 04/12/18 04/12/18 Previous Rx's Medication Instructions Recorded Vancomycin 1,750 mg IVPB Q24HR #40 bag 04/15/18 Allergies Allergy/AdvReac Type Severity Reaction Status Date / Time Penicillins Allergy Rash/Hives Verified 06/22/20 02:32 Sulfa (Sulfonamide Allergy Rash/Hives Verified 06/22/20 02:32 Antibiotics) Review of Systems ROS Statement: Those systems with pertinent positive or pertinent negative responses have been documented in the HPI. ROS Other: All systems not noted in ROS Statement are negative. Past Medical History Past Medical History: Cancer, Hypertension, Osteoarthritis (OA), Prostate Disor ingrid History of Any Multi-Drug Resistant Organisms: None Reported Past Surgical History: Back Surgery, Joint Replacement, Prostate Surgery, Tonsillectomy Additional Past Surgical History / Comment(s): LT TOTAL KNEE; MULT SX ON RT KNEE; ROHITH ROTATOR CUFF SURG, CYST REMOVED; two back surgeries Past Anesthesia/Blood Transfusion Reactions: No Reported Reaction Past Psychological History: No Psychological Hx Reported Past Alcohol Use History: None Reported Past Drug Use History: None Reported - Past Family History Mother Family Medical History: Cancer Additional Family Medical History / Comment(s): FATHER (and mother)- CANCER General Exam General appearance: alert, in no apparent distress Head exam: Present: atraumatic, normocephalic, normal inspection Eye exam: Present: normal appearance, PERRL, EOMI. Absent: scleral icterus, conjunctival injection, periorbital swelling ENT exam: Present: normal exam, mucous membranes moist Neck exam: Present: normal inspection. Absent: tenderness, meningismus, lymphadenopathy Respiratory exam: Present: normal lung sounds bilaterally. Absent: respiratory distress, wheezes, rales, rhonchi, stridor Cardiovascular Exam: Present: normal rhythm, tachycardia, normal heart sounds. Absent: systolic murmur, diastolic murmur, rubs, gallop, clicks GI/Abdominal exam: Present: soft, distended, tenderness, normal bowel sounds. Absent: guarding, rebound, rigid Extremities exam: Present: normal inspection, full ROM, normal capillary refill. Absent: tenderness, pedal edema, joint swelling, calf tenderness Back exam: Present: normal inspection Neurological exam: Present: alert, oriented X3, CN II-XII intact Psychiatric exam: Present: normal affect, normal mood Skin exam: Present: warm, dry, intact, normal color. Absent: rash Course Vital Signs 06/22/20 06/22/20 02:27 03:45 Temperature 98.7 F 98.9 F Pulse Rate 114 H 98 Respiratory 19 18 Rate Blood Pressure 109/72 119/87 O2 Sat by Pulse 95 96 Oximetry - Reevaluation(s) Reevaluation #1: 06/22/20 02:54 Medical record is reviewed Reevaluation #2: 06/22/20 04:17 Patient still with abdominal pain Reevaluation #3: 06/22/20 04:17 Patient informed of results questions answered Reevaluation #4: 06/22/20 04:18 Spoke with patient informed of findings and questions are answered Medical Decision Making - Medical Decision Making 80 male DF for evaluation patient presents today for evaluation regards to severe abdominal pain new diagnosis of diverticulitis, patient will be admitted for pain control and IV antibiotics - Lab Data Result diagrams: 06/22/20 02:56 06/22/20 02:56 Lab Results 06/22/20 06/22/20 06/22/20 Range/Units 02:56 02:56 02:56 WBC 15.4 H (3.8-10.6) k/uL RBC 4.71 (4.30-5.90) m/uL Hgb 13.5 (13.0-17.5) gm/dL Hct 42.6 (39.0-53.0) % MCV 90.5 (80.0-100.0) fL MCH 28.6 (25.0-35.0) pg MCHC 31.6 (31.0-37.0) g/dL RDW 14.1 (11.5-15.5) % Plt Count 196 (150-450) k/uL Neutrophils % 94 % Lymphocytes % 1 % Monocytes % 4 % Eosinophils % 1 % Basophils % 0 % Neutrophils # 14.4 H (1.3-7.7) k/uL Lymphocytes # 0.2 L (1.0-4.8) k/uL Monocytes # 0.6 (0-1.0) k/uL Eosinophils # 0.1 (0-0.7) k/uL Basophils # 0.0 (0-0.2) k/uL PT 47.9 H (9.0-12.0) sec INR 4.8 H (<1.2) APTT 49.4 H (22.0-30.0) sec Sodium 137 (137-145) mmol/L Potassium 3.7 (3.5-5.1) mmol/L Chloride 108 H (98-107) mmol/L Carbon Dioxide 24 (22-30) mmol/L Anion Gap 5 mmol/L BUN 25 H (9-20) mg/dL Creatinine 1.06 (0.66-1.25) mg/dL Est GFR (CKD-EPI)AfAm 76 (>60 ml/min/1.73 sqM) Est GFR (CKD-EPI)NonAf 66 (>60 ml/min/1.73 sqM) Glucose 95 (74-99) mg/dL Plasma Lactic Acid Roshan (0.7-2.0) mmol/L Calcium 8.5 (8.4-10.2) mg/dL Total Bilirubin 1.0 (0.2-1.3) mg/dL AST 19 (17-59) U/L ALT 19 (4-49) U/L Alkaline Phosphatase 63 (38-126) U/L Total Protein 5.6 L (6.3-8.2) g/dL Albumin 3.1 L (3.5-5.0) g/dL Amylase 40 (30-110) U/L Lipase 21 L (23-300) U/L 06/22/20 Range/Units 02:56 WBC (3.8-10.6) k/uL RBC (4.30-5.90) m/uL Hgb (13.0-17.5) gm/dL Hct (39.0-53.0) % MCV (80.0-100.0) fL MCH (25.0-35.0) pg MCHC (31.0-37.0) g/dL RDW (11.5-15.5) % Plt Count (150-450) k/uL Neutrophils % % Lymphocytes % % Monocytes % % Eosinophils % % Basophils % % Neutrophils # (1.3-7.7) k/uL Lymphocytes # (1.0-4.8) k/uL Monocytes # (0-1.0) k/uL Eosinophils # (0-0.7) k/uL Basophils # (0-0.2) k/uL PT (9.0-12.0) sec INR (<1.2) APTT (22.0-30.0) sec Sodium (137-145) mmol/L Potassium (3.5-5.1) mmol/L Chloride (98-107) mmol/L Carbon Dioxide (22-30) mmol/L Anion Gap mmol/L BUN (9-20) mg/dL Creatinine (0.66-1.25) mg/dL Est GFR (CKD-EPI)AfAm (>60 ml/min/1.73 sqM) Est GFR (CKD-EPI)NonAf (>60 ml/min/1.73 sqM) Glucose (74-99) mg/dL Plasma Lactic Acid Roshan 1.1 (0.7-2.0) mmol/L Calcium (8.4-10.2) mg/dL Total Bilirubin (0.2-1.3) mg/dL AST (17-59) U/L ALT (4-49) U/L Alkaline Phosphatase (38-126) U/L Total Protein (6.3-8.2) g/dL Albumin (3.5-5.0) g/dL Amylase (30-110) U/L Lipase (23-300) U/L - Radiology Data Radiology results: report reviewed (CT abdomen and pelvis positive for diverticulitis), image reviewed Disposition Clinical Impression: Abdominal pain, Diverticulitis, Acute abdomen Disposition: ADMITTED IP TO THIS [facility] Condition: Good Referrals: Maurizio Joel DO [Primary Care Provider] - 1-2 days
[2020-06-22] MEDS ORDERED: ONDANSETRON 4 MG/2 ML VIAL IVP STA (02:49)
[2020-06-22] MEDS ORDERED: SODIUM CHLORIDE 0.9% 1,000 ML IV STA (02:49)
[2020-06-22] MEDS ORDERED: MORPHINE SULFATE 4 MG/ML SYRINGE IV STA (02:49)
[2020-06-22] MEDS ORDERED: SODIUM CHLORIDE 0.9% 500 ML 500 ML IV STA (02:49)
[2020-06-22 03:18] LABS: Basophils % (A) 0 %; Eosinophils # (A) 0.1 k/uL (0-0.7); Eosinophils % (A) 1 %; HCT 42.6 % (39.0-53.0); HGB 13.5 gm/dL (13.0-17.5); Lymphocytes # (A) 0.2 k/uL (1.0-4.8); Lymphocytes % (A) 1 %; MCH 28.6 pg (25.0-35.0); MCHC 31.6 g/dL (31.0-37.0); MCV 90.5 fL (80.0-100.0); Mean Platelet Volume 7.6; Monocytes # (A) 0.6 k/uL (0-1.0); Monocytes % (A) 4 %; Neutrophils # (A) 14.4 k/uL (1.3-7.7); Neutrophils % (A) 94 %; Platelet Count 196 k/uL (150-450); RBC 4.71 m/uL (4.30-5.90); RDW 14.1 % (11.5-15.5); WBC 15.4 k/uL (3.8-10.6)
[2020-06-22 03:24] LABS: INR 4.8 (<1.2); Partial Thromboplastin Time 49.4 sec (22.0-30.0); Prothrombin Time 47.9 sec (9.0-12.0)
[2020-06-22 03:34] LABS: Albumin 3.1 g/dL (3.5-5.0); Calcium 8.5 mg/dL (8.4-10.2); Potassium 3.7 mmol/L (3.5-5.1); Total Protein 5.6 g/dL (6.3-8.2)
--- NOTE | 2020-06-22 04:07 | CT ---
EXAMINATION TYPE: CT abdomen pelvis w con DATE OF EXAM: 06/22/2020 COMPARISON: 02/21/2020 HISTORY: abd pain with bloating and constipation. hx of prostate CA CT DLP: 996 mGycm Automated exposure control for dose reduction was used. CONTRAST: Performed with IV Contrast, patient injected with 100 mL of Isovue 300. There is mild atelectasis at the posterior lung bases. Heart is enlarged. There is no pericardial eff usion. Gallbladder is large. Gallbladder measures 4 cm in diameter. Spleen is intact. There is no menard creatic mass. Stomach is intact. Liver shows no focal defect. The bile ducts are not dilated. There is no adrenal mass. Kidneys show satisfactory contrast opacific ation. There is bilateral multiple renal parapelvic cysts. There is no hydronephrosis. There is no re troperitoneal adenopathy. Appendix is posterior and appears normal. There are multiple sigmoid diverticula. There is fat stranding around the mid sigmoid colon. There is left inguinal hernia contains fat and fluid.. There is some mild fluid-filled small bowel distended loops in the right lower quadrant. These measur e up to 2.4 cm. There is thoracolumbar mild dextroscoliosis. There is multilevel spondylotic changes in the lumbar sp ine. There is no lumbar paraspinal mass. Sacroiliac joints appear intact. The bony pelvis is intact. Hip joints are intact. There is no lumbar compression fracture. There is no evidence of free air. There is no ascites. There is no evidence of a bowel obstruction. IMPRESSION: There is extensive sigmoid diverticulosis with a 8 cm segment of diverticulitis with surrounding fat stranding and fluid. No drainable fluid collection. Diverticulitis is a change compared to old exam. There is fat and fluid-containing left inguinal hernia that is increased compared to old exam. There are a few fluid-filled loops of distal ileum suggestive of mild ileus. There is mild subsegmental atelectasis at the lung bases increased compared to old exam.
[2020-06-22] MEDS ORDERED: MORPHINE SULFATE 4 MG/ML SYRINGE IVP STA (04:14)
[2020-06-22] MEDS ORDERED: LEVOFLOXACIN 750MG-D5W PMX 750 MG in DEXTROSE/WATER 1 150ML.BAG IVPB STA (04:15)
[2020-06-22] MEDS ORDERED: metroNIDAZOLE-NS PMX 500 MG in SALINE 1 100ML.BAG IVPB STA (04:15)
[2020-06-22] MEDS ORDERED: LEVOFLOXACIN 750MG-D5W PMX 750 MG in DEXTROSE/WATER 1 150ML.BAG IVPB ONE ×2 (04:19→06:00)
[2020-06-22 05:36] LABS: Appearance,Urine Clear (Clear); Bilirubin,Urine Negative (Negative); Blood,Urine Negative (Negative); Color,Urine Yellow; Glucose,Urine (UA) Negative (Negative); Ketones,Urine 1+ (Negative); Leukocyte Esterase,Urine Negative (Negative); Mucus,Urine Moderate /hpf; Nitrite,Urine Negative (Negative); Protein,Urine 1+ (Negative); Squamous Epithelial Cell,Urine <1 /hpf (0-4); Urobilinogen,Urine <2.0 mg/dL (<2.0)
[2020-06-22 05:37] LABS: Specific Gravity,Urine >1.050 (1.001-1.035)
[2020-06-22] MEDS: PANTOPRAZOLE 40 MG/10 ML VIAL IVP SCH (07:20)
[2020-06-22] MEDS: MORPHINE SULFATE 4 MG/ML SYRINGE IVP PRN ×2 (07:35→20:28)
[2020-06-22] MEDS: ONDANSETRON 4 MG/2 ML VIAL IVP PRN (09:14)
[2020-06-22] MEDS: metroNIDAZOLE-NS PMX 500 MG in SALINE 1 100ML.BAG IVPB SCH ×2 (11:50→20:27)
--- NOTE | 2020-06-22 12:35 | P.GSCN ---
<Jacquie Sanchez - Last Filed: 06/22/20 14:35> History of Present Illness Consult date: 06/22/20 History of present illness: CHIEF COMPLAINT: Abdominal pain HISTORY OF PRESENT ILLNESS: This 80-year-old male with a known history of prostate cancer status post prostatectomy, atrial fibrillation and anticoagulated with Coumadin, hypertension, and chronic back pain with previous back surgeries. He presents to emergency room with a two-day history of left lower quadrant abdominal pain. He has been having nausea and a couple episodes of vomiting. He reports being constipated. Last bowel movement was 2 days ago. He is afebrile. He denies any blood in stool. Last colonoscopy 10 years ago with polyps removed. He had a computed tomography scan of the abdomen and pelvis evidence of diverticulitis. PAST MEDICAL HISTORY: See list. PAST SURGICAL HISTORY: See list. MEDICATIONS: See list. ALLERGIES: See list. SOCIAL HISTORY: No illicit drug use. REVIEW OF SYSTEMS: CONSTITUTIONAL: Denies fever or chills. HEENT: Denies blurred vision, vision changes, or eye pain. Denies hemoptysis ENDOCRINE: Denies heat or cold intolerance. CARDIOVASCULAR: Denies chest pain or pressure. RESPIRATORY: No shortness of breath. GASTROINTESTINAL: Denies abdominal pain. Denies nausea or vomiting. NEURO: Denies history of seizures. PSYCH: No depression or suicidal ideation HEMATOLOGIC: Denies bleeding disorders. LYMPHATIC: The patient denies any lumps and bumps around the neck. GENITOURINARY: Denies any blood in urine or increased urinary frequency. MUSCULOSKELETAL: Denies myalgias. Denies joint swelling. Denies decreased range of motion beyond patients baseline. SKIN: Denies pruitis. Denies rash. PHYSICAL EXAM: VITAL SIGNS: Reviewed GENERAL: Well-developed in no acute distress. HEENT: No sclera icterus. Extraocular movements grossly intact. Moist buccal mucosa. Head is atraumatic, normocephalic. Hears conversational speech. No nasal drainage. NECK: Supple without lymphadenopathy. CHEST: Non-labored respirations and equal bilateral excursions. CARDIOVASCULAR: Palpable 2+ radial pulses. ABDOMEN: Soft. Nondistended. Tenderness to palpation in the left lower q uadrant and left lower mid abdomen MUSCULOSKELETAL: No clubbing or cyanosis. NEUROLOGIC: No focal or lateralizing signs. Cranial nerves II through XII grossly intact. PSYCH: Appropriate affect. Alert and oriented to person, place and time. SKIN: Well perfused. Good skin turgor. LABORATORY DATA: WBC 15.4 hemoglobin 13.5 INR 4.8 IMAGING: computed tomography scan abdomen and pelvis showing extensive sigmoid diverticulosis with an 8 cm segment of diverticulitis with surrounding fat stra nding and fluid. No drainable fluid collection. Diverticulitis changed compared to old exam. There is fat and fluid containing left inguinal hernia. There are a few fluid-filled loops of distal ileum suggestive of mild ileus. ASSESSMENT: 1. Acute diverticulitis 2. Left inguinal hernia 3. Possible mild ileus 4. Atrial fibrillation anticoagulated with Coumadin 5. Coagulopathy INR 4.8 6. History of prostate cancer status post prostatectomy PLAN: -Continue IV antibiotics -Continue IV fluids -Keep patient nothing by mouth -Consult infectious disease for diverticulitis -Continue IV Zofran as needed for nausea and vomiting -Continue IV Protonix for GI prophylaxis Physician Instrumentation And Controls Technician note has been reviewed by physician. Signing provider agrees with the documented findings, assessment, and plan of care. 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 No international travel. No animal exposures. Has a second residence on [facility] Smoking Status: Never smoker Past Alcohol Use History: None Reported Past Drug Use History: None Reported - Past Family History Mother Family Medical History: Cancer Additional Family Medical History / Comment(s): FATHER (and mother)- CANCER Medications and Allergies Home Medications Medication Instructions Recorded Confirmed Type amLODIPine BESYLATE [Norvasc] 10 mg PO DAILY 02/21/14 06/22/20 History Multivitamins, Thera [Multivitamin 1 tab PO DAILY 04/12/18 06/22/20 History (formulary)] Warfarin [Coumadin] 5 mg PO @199904/12/18 06/22/20 History Warfarin [Coumadin] 2.5 mg PO SUMOWETHFR@199906/22/20 06/22/20 History traZODone HCL 50 mg PO 06/22/20 06/22/20 History Allergies Allergy/AdvReac Type Severity Reaction Status Date / Time Penicillins Allergy Rash/Hives Verified 06/22/20 07:57 Sulfa (Sulfonamide Allergy Rash/Hives Verified 06/22/20 07:57 Antibiotics) Surgical - Exam Vital Signs Temp Pulse Resp BP Pulse Ox 98.7 F 114 H 19 109/72 95 06/22/20 02:27 06/22/20 02:27 06/22/20 02:27 06/22/20 02:27 06/22/20 02:27 Results - Labs 06/22/20 02:56 06/22/20 02:56 Abnormal Lab Results - Last 24 Hours (Table) 06/22/20 06/22/20 06/22/20 Range/Units 02:56 02:56 02:56 WBC 15.4 H (3.8-10.6) k/uL Neutrophils # 14.4 H (1.3-7.7) k/uL Lymphocytes # 0.2 L (1.0-4.8) k/uL PT 47.9 H (9.0-12.0) sec INR 4.8 H (<1.2) APTT 49.4 H (22.0-30.0) sec Chloride 108 H (98-107) mmol/L BUN 25 H (9-20) mg/dL Total Protein 5.6 L (6.3-8.2) g/dL Albumin 3.1 L (3.5-5.0) g/dL Lipase 21 L (23-300) U/L Ur Specific [place] (1.001-1.035) Urine Protein (Negative) Urine Ketones (Negative) Urine Mucus (None) /hpf 06/22/20 Range/Units 04:59 WBC (3.8-10.6) k/uL Neutrophils # (1.3-7.7) k/uL Lymphocytes # (1.0-4.8) k/uL PT (9.0-12.0) sec INR (<1.2) APTT (22.0-30.0) sec Chloride (98-107) mmol/L BUN (9-20) mg/dL Total Protein (6.3-8.2) g/dL Albumin (3.5-5.0) g/dL Lipase (23-300) U/L Ur Specific [place] >1.050 H (1.001-1.035) Urine Protein 1+ H (Negative) Urine Ketones 1+ H (Negative) Urine Mucus Moderate H (None) /hpf Diabetes panel 06/22/20 Range/Units 02:56 Sodium 137 (137-145) mmol/L Potassium 3.7 (3.5-5.1) mmol/L Chloride 108 H (98-107) mmol/L Carbon Dioxide 24 (22-30) mmol/L BUN 25 H (9-20) mg/dL Creatinine 1.06 (0.66-1.25) mg/dL Glucose 95 (74-99) mg/dL Calcium 8.5 (8.4-10.2) mg/dL AST 19 (17-59) U/L ALT 19 (4-49) U/L Alkaline Phosphatase 63 (38-126) U/L Total Protein 5.6 L (6.3-8.2) g/dL Albumin 3.1 L (3.5-5.0) g/dL Calcium panel 06/22/20 Range/Units 02:56 Calcium 8.5 (8.4-10.2) mg/dL Albumin 3.1 L (3.5-5.0) g/dL Pituitary panel 06/22/20 Range/Units 02:56 Sodium 137 (137-145) mmol/L Potassium 3.7 (3.5-5.1) mmol/L Chloride 108 H (98-107) mmol/L Carbon Dioxide 24 (22-30) mmol/L BUN 25 H (9-20) mg/dL Creatinine 1.06 (0.66-1.25) mg/dL Glucose 95 (74-99) mg/dL Calcium 8.5 (8.4-10.2) mg/dL Adrenal panel 06/22/20 Range/Units 02:56 Sodium 137 (137-145) mmol/L Potassium 3.7 (3.5-5.1) mmol/L Chloride 108 H (98-107) mmol/L Carbon Dioxide 24 (22-30) mmol/L BUN 25 H (9-20) mg/dL Creatinine 1.06 (0.66-1.25) mg/dL Glucose 95 (74-99) mg/dL Calcium 8.5 (8.4-10.2) mg/dL Total Bilirubin 1.0 (0.2-1.3) mg/dL AST 19 (17-59) U/L ALT 19 (4-49) U/L Alkaline Phosphatase 63 (38-126) U/L Total Protein 5.6 L (6.3-8.2) g/dL Albumin 3.1 L (3.5-5.0) g/dL <Tosha Lau N - Last Filed: 06/22/20 22:23> History of Present Illness History of present illness: As above. CHIEF COMPLAINT: Diverticulitis HISTORY OF PRESENT ILLNESS: The patient is a 80 year old male with pre-existing history of prostate cancer who presents acutely with left lower quadrant abdominal pain. Additional history is obtained by daughter at bedside. Reports past history of colonoscopy where he had colonoscopies every 3 years until 10 years ago. No reports of blood in stools. He is nauseous. No reports of fevers or chills. Additional studies demonstrated diverticulitis. He presents with WBC elevated over 15,000. PAST MEDICAL HISTORY: See list and reviewed PAST SURGICAL HISTORY: See list and reviewed MEDICATIONS: See list and reviewed ALLERGIES: See list and reviewed SOCIAL HISTORY: See list and reviewed FAMILY HISTORY: See list and reviewed REVIEW OF ORGAN SYSTEMS: CONSTITUTIONAL: No fevers or chills. EYES: Denies any trouble with vision. HEENT: No difficulties with hearing. No nosebleeds. RESPIRATORY: Denies pneumonia. Denies any troubles with breathing or dyspnea on exertion. CARDIOVASCULAR: Has atrial fibrillation. GASTROINTESTINAL: Has change in bowel habits. Past history of colon polyps. GENITOURINARY: Has prostatic cancer NEUROLOGICAL: Denies any numbness or tingling along the distal extremities. No seizure disorders or headaches. MUSCULOSKELETAL: Denies any back pain, stiffness or joint arthritis. SKIN: No current skin cancer. No rash. PSYCHIATRIC: Denies current depression or suicidal thoughts. ENDOCRINE: Denies current thyroid disorders. Denies any blood sugar glucose intolerance. HEME/LYMPHATIC: Denies any lumps and bumps around the neck. An chronic Coumadin therapy ALLERGY/IMMUNOLOGY: No immunoglobulin therapy. No immune deficiencies. PHYSICAL EXAM: VITALS: Reviewed CONSTITUTIONAL: Well developed and in no acute distress. EYES: Conjuctivae without sclera icterus. Pupils are equally round and reactive to light. Extraocular movements grossly intact. HEAD, EARS, NOSE, THROAT: Moist buccal mucosa. Head is atraumatic, normocephalic. Hears conversational speech. No nasal drainage. NECK: Supple. No JV distention. No thyroidomegaly. RESPIRATORY: Non-labored respirations and equal bilateral excursions. No gross wheezes. CARDIOVASCULAR: Irregular rate. Irregular rhythm. Palpable 2+ radial pulses. ABDOMEN: Soft. Tenderness along the epigastrium and left lower quadrant. Palpable swelling along the left groin. No diffuse peritonitis. LYMPH: No neck lymphadenopathy. MUSCULOSKELETAL: No clubbing cyanosis or edema.. SKIN: Warm and well perfused with good skin turgor. NEUROLOGIC: Cranial nerves II through XII grossly intact. No focal or lateralizing signs. PSYCH: Appropriate affect. Alert and oriented to person, place and time. Displays appropriate insight. CLINCAL LABS: Reviewed. WBC over 15,000. INR elevated at 4.8. IMAGING: CT of abdomen and pelvis and reviewed demonstrating distended gallbladder. Diverticulosis of the sigmoid colon identified with inflammatory changes. Fat-containing left inguinal hernia. STUDIES: CT of the abdomen and pelvis report demonstrates 8 cm segment sigmoid colon diverticulitis. Findings consistent with ileus. Also confirms fat- containing left lateral hernia ASSESSMENT: 1. Acute diverticulitis sigmoid colon 2. Fat-containing left inguinal hernia 3. Prostate cancer 4. Therapeutic INR, chronic Coumadin PLAN: 1. As pre-existing history of colon polyps last colonoscopy 10 years ago and may need future colonoscopy after current event resolves. 2. Agree with infectious disease consultation for antibiotic management 3. Inpatient hospitalization 3 days described to acute diverticulitis 4. Nothing by mouth for 24 hours Surgical - Exam Vital Signs Temp Pulse Resp BP Pulse Ox 98.7 F 114 H 19 109/72 95 06/22/20 02:27 06/22/20 02:27 06/22/20 02:27 06/22/20 02:27 06/22/20 02:27 Results - Labs 06/22/20 02:56 06/22/20 02:56 Abnormal Lab Results - Last 24 Hours (Table) 06/22/20 06/22/20 06/22/20 Range/Units 02:56 02:56 02:56 WBC 15.4 H (3.8-10.6) k/uL Neutrophils # 14.4 H (1.3-7.7) k/uL Lymphocytes # 0.2 L (1.0-4.8) k/uL PT 47.9 H (9.0-12.0) sec INR 4.8 H (<1.2) APTT 49.4 H (22.0-30.0) sec Chloride 108 H (98-107) mmol/L BUN 25 H (9-20) mg/dL Total Protein 5.6 L (6.3-8.2) g/dL Albumin 3.1 L (3.5-5.0) g/dL Lipase 21 L (23-300) U/L Ur Specific [place] (1.001-1.035) Urine Protein (Negative) Urine Ketones (Negative) Urine Mucus (None) /hpf 06/22/20 Range/Units 04:59 WBC (3.8-10.6) k/uL Neutrophils # (1.3-7.7) k/uL Lymphocytes # (1.0-4.8) k/uL PT (9.0-12.0) sec INR (<1.2) APTT (22.0-30.0) sec Chloride (98-107) mmol/L BUN (9-20) mg/dL Total Protein (6.3-8.2) g/dL Albumin (3.5-5.0) g/dL Lipase (23-300) U/L Ur Specific [place] >1.050 H (1.001-1.035) Urine Protein 1+ H (Negative) Urine Ketones 1+ H (Negative) Urine Mucus Moderate H (None) /hpf Diabetes panel 06/22/20 Range/Units 02:56 Sodium 137 (137-145) mmol/L Potassium 3.7 (3.5-5.1) mmol/L Chloride 108 H (98-107) mmol/L Carbon Dioxide 24 (22-30) mmol/L BUN 25 H (9-20) mg/dL Creatinine 1.06 (0.66-1.25) mg/dL Glucose 95 (74-99) mg/dL Calcium 8.5 (8.4-10.2) mg/dL AST 19 (17-59) U/L ALT 19 (4-49) U/L Alkaline Phosphatase 63 (38-126) U/L Total Protein 5.6 L (6.3-8.2) g/dL Albumin 3.1 L (3.5-5.0) g/dL Calcium panel 06/22/20 Range/Units 02:56 Calcium 8.5 (8.4-10.2) mg/dL Albumin 3.1 L (3.5-5.0) g/dL Pituitary panel 06/22/20 Range/Units 02:56 Sodium 137 (137-145) mmol/L Potassium 3.7 (3.5-5.1) mmol/L Chloride 108 H (98-107) mmol/L Carbon Dioxide 24 (22-30) mmol/L BUN 25 H (9-20) mg/dL Creatinine 1.06 (0.66-1.25) mg/dL Glucose 95 (74-99) mg/dL Calcium 8.5 (8.4-10.2) mg/dL Adrenal panel 06/22/20 Range/Units 02:56 Sodium 137 (137-145) mmol/L Potassium 3.7 (3.5-5.1) mmol/L Chloride 108 H (98-107) mmol/L Carbon Dioxide 24 (22-30) mmol/L BUN 25 H (9-20) mg/dL Creatinine 1.06 (0.66-1.25) mg/dL Glucose 95 (74-99) mg/dL Calcium 8.5 (8.4-10.2) mg/dL Total Bilirubin 1.0 (0.2-1.3) mg/dL AST 19 (17-59) U/L ALT 19 (4-49) U/L Alkaline Phosphatase 63 (38-126) U/L Total Protein 5.6 L (6.3-8.2) g/dL Albumin 3.1 L (3.5-5.0) g/dL Assessment and Plan (1) Sigmoid diverticulitis Current Visit: Yes Status: Acute Code(s): K57.32 - DVTRCLI OF LG INT W/O PERFORATION OR ABSCESS W/O BLEEDING SNOMED Code(s): 273643018 (2) Prostate cancer Current Visit: Yes Status: Acute Code(s): C61 - MALIGNANT NEOPLASM OF PROSTATE SNOMED Code(s): 124248269 (3) Atrial fibrillation Current Visit: Yes Status: Acute Code(s): I48.91 - UNSPECIFIED ATRIAL FIBRILLATION SNOMED Code(s): 52134677 (4) Anticoagulated on Coumadin Current Visit: Yes Status: Acute Code(s): Z79.01 - HALFWAY (CURRENT) USE OF ANTICOAGULANTS SNOMED Code(s): 61842232
--- NOTE | 2020-06-22 15:39 | P.HPIM ---
History of Present Illness H&P Date: 06/22/20 Chief Complaint: Abdominal pain History of presenting complaint: This is a very pleasant 80-year-old patient of Dr. Joel. Chronic stable medical conditions include paroxysmal atrial fibrillation on Coumadin, hypertension, prostate cancer treated by surgery and followed by radiation treatment a year later, back surgery. The last 2 or 3 days patient with having increasing lower abdominal pain started off with nausea after he presented today also vomited couple of times. Denied any fever and chills. Patient baseline normally has 2 or 3 bowel movements a day. Last bowel movement was 2 days ago. Abdomen felt distended. Computed tomography scan of the abdomen that showed extensive sigmoid diverticulosis with asymmetry with a segment of diverticulitis and some fat and fluid containing left inguinal hernia and few fluid-filled loops of distal ileum. Review of systems: GEN.: Tired EYES: None HEENT: Decreased hearing NECK: None RESPIRATORY: None CARDIOVASCULAR: None GASTROINTESTINAL: As above GENITOURINARY: None MUSCULOSKELETAL: Chronic back pain LYMPHATICS: None HEMATOLOGICAL: None PSYCHIATRY: None NEUROLOGICAL: None Past medical history to include: Paroxysmal atrial fibrillation, hypertension, prostate cancer treated with surgery and radiation treatment, back surgery, Social 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 Lives alone. 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 EYES: Pupils equal. Conjunctiva normal. HEENT: External appearance of nose and ears normal, oral cavity grossly normal. NECK: JVD not raised; masses not palpable. HEART: First and second heart sounds are normal; no edema. LUNGS: Respiratory rate normal; clear to auscultation. ABDOMEN: Soft, no abdominal tenderness, no guarding rigidity, liver spleen not palpable, no masses palpable. PSYCH: [Alert and oriented x3; mood and affect anxious l. NEUROLOGICAL: Cranial nerves grossly intact; no facial asymmetry, power and sensation grossly intact. LYMPHATICS: No lymph nodes palpable in the axilla and neck INVESTIGATIONS, reviewed in the clinical context: White count 15.4 hemoglobin 13.5 platelets 196 INR 4.8 potassium 3.7 creatinine 1.06 Computed tomography scan of the abdomen pelvis-sigmoid diverticulosis with diverticulitis. No free air. Some air-fluid levels in the distal ileum Assessment: -Acute severe sigmoid diverticulitis -Colonic diverticulosis -Element of small bowel ileus -Paroxysmal atrial fibrillation chronically on Coumadin -Coumadin monitoring -Prostate cancer with a history of surgery and radiation treatment -Hypoalbuminemia-reactive Plan: Coumadin to be held for now. IV fluids. Nothing by mouth except for meds. IV Zosyn. IV Flagyl.: Monitoring. Anti-emetics. Morphine for pain control. Care was discussed at length with the patient daughter at bedside. Questions answered. Expect to stay in the hospital at least 2 nights. General surgery consulted. 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 No animal exposures. Has a second residence on [facility] Smoking Status: Never smoker Past Alcohol Use History: None Reported Past Drug Use History: None Reported - Past Family History Mother Family Medical History: Cancer Additional Family Medical History / Comment(s): FATHER (and mother)- CANCER Medications and Allergies Home Medications Medication Instructions Recorded Confirmed Type amLODIPine BESYLATE [Norvasc] 10 mg PO DAILY 02/21/14 06/22/20 History Multivitamins, Thera [Multivitamin 1 tab PO DAILY 04/12/18 06/22/20 History (formulary)] Warfarin [Coumadin] 5 mg PO TUSA@199904/12/18 06/22/20 History Warfarin [Coumadin] 2.5 mg PO SUMOWETHFR@199906/22/20 06/22/20 History traZODone HCL 50 mg PO 06/22/20 06/22/20 History Allergies Allergy/AdvReac Type Severity Reaction Status Date / Time Penicillins Allergy Rash/Hives Verified 06/22/20 07:57 Sulfa (Sulfonamide Allergy Rash/Hives Verified 06/22/20 07:57 Antibiotics) Physical Exam Vitals: Vital Signs Temp Pulse Pulse Resp BP BP Pulse Ox 06/22/20 08:00 96 20 06/22/20 07:00 97.7 F 96 20 115/70 96 06/22/20 05:30 98.2 F 99 111/81 93 L 06/22/20 03:45 98.9 F 98 18 119/87 96 06/22/20 02:27 98.7 F 114 H 19 109/72 95 Intake and Output 06/21/20 06/22/20 06/22/20 22:59 06:59 14:59 Intake Total 1250 Balance 1250 Intake: Intake, IV Titration 1250 Amount Sodium Chloride 0.9% 1, 1250 000 ml @ 130 mls/hr IV . Q7H42M STA Rx#:[id number] Other: Weight 79.379 kg Results CBC & Chem 7: 06/22/20 02:56 06/22/20 02:56 Labs: Abnormal Lab Results - Last 24 Hours (Table) 06/22/20 06/22/20 06/22/20 Range/Units 02:56 02:56 02:56 WBC 15.4 H (3.8-10.6) k/uL Neutrophils # 14.4 H (1.3-7.7) k/uL Lymphocytes # 0.2 L (1.0-4.8) k/uL PT 47.9 H (9.0-12.0) sec INR 4.8 H (<1.2) APTT 49.4 H (22.0-30.0) sec Chloride 108 H (98-107) mmol/L BUN 25 H (9-20) mg/dL Total Protein 5.6 L (6.3-8.2) g/dL Albumin 3.1 L (3.5-5.0) g/dL Lipase 21 L (23-300) U/L Ur Specific [place] (1.001-1.035) Urine Protein (Negative) Urine Ketones (Negative) Urine Mucus (None) /hpf 06/22/20 Range/Units 04:59 WBC (3.8-10.6) k/uL Neutrophils # (1.3-7.7) k/uL Lymphocytes # (1.0-4.8) k/uL PT (9.0-12.0) sec INR (<1.2) APTT (22.0-30.0) sec Chloride (98-107) mmol/L BUN (9-20) mg/dL Total Protein (6.3-8.2) g/dL Albumin (3.5-5.0) g/dL Lipase (23-300) U/L Ur Specific [place] >1.050 H (1.001-1.035) Urine Protein 1+ H (Negative) Urine Ketones 1+ H (Negative) Urine Mucus Moderate H (None) /hpf Thrombosis Risk Factor Assmnt - Choose All That Apply Any of the Below Risk Factors Present?: Yes Each Factor Represents 1 point: Medical pt on bed rest Other Risk Factors: Yes Each Risk Factor Represents 3 Points: Age 75 years or older Thrombosis Risk Factor Assessment Total Risk Factor Score: 4 Thrombosis Risk Factor Assessment Level: Moderate Risk
[2020-06-22] MEDS: amLODIPine 10 MG TAB PO SCH (16:20)
[2020-06-22] MEDS: LACTATED RINGERS 1,000 ML IV SCH ×2 (16:23→20:28)
[2020-06-22] MEDS: PIPERACILLIN-TAZOBACTAM 3.375 GM in SODIUM CHLORIDE 0.9% 100 ML IVPB SCH ×2 (16:23→23:46)
[2020-06-22] MEDS ORDERED: WARFARIN 0.5 MG TAB PO ONE (18:00)
[2020-06-22] MEDS ORDERED: PROCHLORPERAZINE 10 MG TAB PO PRN (18:39)
[2020-06-22] MEDS ORDERED: WARFARIN 5 MG TAB PO SCH (20:00)
[2020-06-22] MEDS: traZODone HCL 50 MG TAB PO SCH (20:28)
[2020-06-22] MEDS ORDERED: CEFEPIME 1 GM in SODIUM CHLORIDE 0.9% 50 ML IVPB ONE (21:00)
--- NOTE | 2020-06-22 23:13 | P.CONS ---
History of Present Illness - Reason for Consult Consult date: 06/22/20 Sigmoid diverticulitis Requesting physician: Jose Cooper - Chief Complaint Abdominal pain 2 days - History of Present Illness Patient is a 28 year old male with a past medical history prostate cancer, atrial fibrillation in this patient was in the hospital at [facility] with 2 day history of abdominal pain which has been mostly in the left lower abdominal area that the pain has been mostly sedentary acid and has progressed over the last 2 days patient describes the pain to be more of a shopping nature intensity is about 8 out of 10 and no radiation patient be complaining of possible weight no bowel movement for the last 2 days he has felt nauseated but no vomiting the patient was complaining of some chills and fever with these symptoms the patient presented to hospital on arrival to the ER the patient was afebrile he did have white count of 15,000, patient did have a CT of abdominal pelvis which it shows any evidence of extensive sigmoid diverticulosis and segment of diverticulitis with surrounding fat stranding no drainable fluid collection, patient has been diagnosed with diverticulitis and admitted to the hospital initially started on cefepime and Flagyl subsequent diabetic has been switched over to Zosyn and infectious disease was consulted for further management of antibiotic therapy, patient did mention he did have a rash with penicillin when he was 12 years old however subsequently to that he has taken oral amoxicillin without any problem and he tolerated a dose of Zosyn and this afternoon Review of Systems Positive point has been mentioned in the HPI rest of the systems are negative Past Medical History Past Medical History: Cancer, Hypertension, Osteoarthritis (OA), Prostate Disorder History of Any Multi-Drug Resistant Organisms: None Reported Past Surgical History: Back Surgery, Joint Replacement, Prostate Surgery, Tonsillectomy Additional Past Surgical History / Comment(s): LT TOTAL KNEE; MULT SX ON RT KNEE; ROHITH ROTATOR CUFF SURG, CYST REMOVED; two back surgeries Past Anesthesia/Blood Transfusion Reactions: No Reported Reaction Past Psychological History: No Psychological Hx Reported Additional Psychological History / Comment(s): and lives with his . 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 No international travel. No animal exposures. Has a second residence on [facility] Smoking Status: Never smoker Past Alcohol Use History: None Reported Past Drug Use History: None Reported - Past Family History Mother Family Medical History: Cancer Additional Family Medical History / Comment(s): FATHER (and mother)- CANCER Medications and Allergies Home Medications Medication Instructions Recorded Confirmed Type amLODIPine BESYLATE [Norvasc] 10 mg PO DAILY 02/21/14 06/22/20 History Multivitamins, Thera [Multivitamin 1 tab PO DAILY 04/12/18 06/22/20 History (formulary)] Warfarin [Coumadin] 5 mg PO TUSA@199904/12/18 06/22/20 History Warfarin [Coumadin] 2.5 mg PO SUMOWETHFR@199906/22/20 06/22/20 History traZODone HCL 50 mg PO 06/22/20 06/22/20 History Allergies Allergy/AdvReac Type Severity Reaction Status Date / Time Penicillins Allergy Rash/Hives Verified 06/22/20 07:57 Sulfa (Sulfonamide Allergy Rash/Hives Verified 06/22/20 07:57 Antibiotics) Physical Exam Vitals: Vital Signs Temp Pulse Pulse Resp BP BP Pulse Ox 06/22/20 15:38 86 17 06/22/20 14:45 97.8 F 86 17 109/76 93 L 06/22/20 08:00 96 20 06/22/20 07:00 97.7 F 96 20 115/70 96 06/22/20 05:30 98.2 F 99 111/81 93 L 06/22/20 03:45 98.9 F 98 18 119/87 96 06/22/20 02:27 98.7 F 114 H 19 109/72 95 Intake and Output 06/22/20 06/22/20 06/22/20 06:59 14:59 22:59 Intake Total 1250 Balance 1250 Intake: Intake, IV Titration 1250 Amount Sodium Chloride 0.9% 1, 1250 000 ml @ 130 mls/hr IV . Q7H42M STA Rx#:[id number] Other: # Voids 2 Weight 79.379 kg GENERAL DESCRIPTION: An elderly male lying in bed, no distress. No tachypnea or accessory muscle of respiration use. HEENT: Shows Pallor , no scleral icterus. Oral mucous membrane is dry. No pharyngeal erythema or thrush NECK: Trachea central, no thyromegaly. LUNGS: Unlabored breathing. Clear to auscultation anteriorly. No wheeze or crackle. HEART: S1, S2, regular rate and rhythm. No loud murmur ABDOMEN: Soft, mild left lower quadrant tenderness ,no guarding or rigidity, no organomegaly EXTREMITIES: No edema of feet. SKIN: No rash, no masses palpable. NEUROLOGICAL: The patient is awake, alert, oriented x3, mood and affect normal. Results CBC & Chem 7: 06/22/20 02:56 06/22/20 02:56 Labs: Abnormal Lab Results - Last 24 Hours (Table) 06/22/20 06/22/20 06/22/20 Range/Units 02:56 02:56 02:56 WBC 15.4 H (3.8-10.6) k/uL Neutrophils # 14.4 H (1.3-7.7) k/uL Lymphocytes # 0.2 L (1.0-4.8) k/uL PT 47.9 H (9.0-12.0) sec INR 4.8 H (<1.2) APTT 49.4 H (22.0-30.0) sec Chloride 108 H (98-107) mmol/L BUN 25 H (9-20) mg/dL Total Protein 5.6 L (6.3-8.2) g/dL Albumin 3.1 L (3.5-5.0) g/dL Lipase 21 L (23-300) U/L Ur Specific [place] (1.001-1.035) Urine Protein (Negative) Urine Ketones (Negative) Urine Mucus (None) /hpf 06/22/20 Range/Units 04:59 WBC (3.8-10.6) k/uL Neutrophils # (1.3-7.7) k/uL Lymphocytes # (1.0-4.8) k/uL PT (9.0-12.0) sec INR (<1.2) APTT (22.0-30.0) sec Chloride (98-107) mmol/L BUN (9-20) mg/dL Total Protein (6.3-8.2) g/dL Albumin (3.5-5.0) g/dL Lipase (23-300) U/L Ur Specific [place] >1.050 H (1.001-1.035) Urine Protein 1+ H (Negative) Urine Ketones 1+ H (Negative) Urine Mucus Moderate H (None) /hpf Assessment and Plan Assessment: 1- patient presented to the hospital with abdominal pain and tenderness and elevated white count with evidence of sigmoid diverticulitis with no evidence of any perforation or abscess will need to cover for the enteric gram-negative both anaerobes and anaerobe to the likely pathoge 2- patient with a penicillin ALLERGY describing as a reactions and he was 12 subsequently has taken amoxicillin clinically doubt true penicillin ALLERGY and should be taken off his chart (1) Sigmoid diverticulitis Current Visit: Yes Status: Acute Code(s): K57.32 - DVTRCLI OF LG INT W/O PERFORATION OR ABSCESS W/O BLEEDING SNOMED Code(s): 657209740 Plan: 1- Zosyn 3.375 g every 8 hours 2- IV fluid and bowel rest We will follow on clinical condition and cultures to further adjust medication if needed Thank you for this consultation will follow this patient with you Time with Patient: Greater than 30
[2020-06-23] MEDS: LACTATED RINGERS 1,000 ML IV SCH ×3 (05:26→21:20)
[2020-06-23] MEDS: metroNIDAZOLE-NS PMX 500 MG in SALINE 1 100ML.BAG IVPB SCH ×3 (05:26→18:14)
[2020-06-23] MEDS ORDERED: LEVOFLOXACIN 750MG-D5W PMX 750 MG in DEXTROSE/WATER 1 150ML.BAG IVPB SCH (06:00)
[2020-06-23] MEDS: amLODIPine 10 MG TAB PO SCH (07:27)
[2020-06-23] MEDS: PANTOPRAZOLE 40 MG/10 ML VIAL IVP SCH (07:28)
[2020-06-23] MEDS: PIPERACILLIN-TAZOBACTAM 3.375 GM in SODIUM CHLORIDE 0.9% 100 ML IVPB SCH ×2 (07:28→17:13)
[2020-06-23 07:41] LABS: Basophils % (A) 0 %; Eosinophils % (A) 0 %; Hypochromasia Slight; Lymphocytes # (A) 0.4 k/uL (1.0-4.8); Lymphocytes % (A) 3 %; MCH 28.6 pg (25.0-35.0); MCHC 31.4 g/dL (31.0-37.0); MCV 90.9 fL (80.0-100.0); Mean Platelet Volume 7.8; Monocytes # (A) 0.5 k/uL (0-1.0); Monocytes % (A) 3 %; Neutrophils # (A) 13.7 k/uL (1.3-7.7); Neutrophils % (A) 93 %; Platelet Count 165 k/uL (150-450); RBC 4.19 m/uL (4.30-5.90); RDW 14.4 % (11.5-15.5); WBC 14.8 k/uL (3.8-10.6)
[2020-06-23] MEDS ORDERED: CEFEPIME 1 GM in SODIUM CHLORIDE 0.9% 50 ML IVPB SCH (09:00)
[2020-06-23] MEDS: MORPHINE SULFATE 4 MG/ML SYRINGE IVP PRN ×2 (10:20→17:13)
[2020-06-23 10:40] LABS: African American GFR (CKD) 45.8 (60.0-200.0); Albumin 2.7 g/dL (3.80-4.90); Albumin/Globulin Ratio 1.69 (1.60-3.17); Anion Gap 8.4 mmol/L (4.00-12.00); BUN/Creat Ratio 25.63 Ratio (12.00-20.00); Calcium 8.2 mg/dL (8.7-10.3); Carbon Dioxide 25.6 mmol/L (21.6-31.8); Globulin 1.6 g/dL (1.6-3.3); Magnesium 2.2 mg/dL (1.5-2.4); Non-African American GFR(CKD) 39.5 (60.0-200.0); Potassium 4.3 mmol/L (3.5-5.5); Prothrombin Time 50.8 sec (9.9-11.9); Total Bilirubin 0.7 mg/dL (0.2-1.2); Total Protein 4.3 g/dL (6.2-8.2)
[2020-06-23] MEDS ORDERED: PHYTONADIONE 5 MG in SODIUM CHLORIDE 0.9% 50 ML IVPB STA (10:54)
[2020-06-23 10:58] LABS: INR 5.05 (0.90-1.11)
--- NOTE | 2020-06-23 15:10 | P.PN ---
<Jacquie Sanchez - Last Filed: 06/23/20 15:04> Subjective Progress Note Date: 06/23/20 CHIEF COMPLAINT: Abdominal pain HISTORY OF PRESENT ILLNESS: Patient is being followed for an acute diverticulitis. He is being treated conservatively. Patient reporting abdominal pain in the left lower quadrant. Slightly better than yesterday. Still requiring pain medication. Nausea and vomiting have resolved. No bowel movement. White count has come down from 15.4 to 14.8. INR 5.05. Creatinine 1.6 He is afebrile. And currently nothing by mouth. PHYSICAL EXAM: VITAL SIGNS: Reviewed GENERAL: Well-developed in no acute distress. HEENT: No sclera icterus. Extraocular movements grossly intact. Moist buccal mucosa. Head is atraumatic, normocephalic. Hears conversational speech. No nasal drainage. NECK: Supple without lymphadenopathy. CHEST: Non-labored respirations and equal bilateral excursions. CARDIOVASCULAR: Palpable 2+ radial pulses. ABDOMEN: Soft. Nondistended. Tenderness in the left lower quadrant. Palpable swelling along the left groin. MUSCULOSKELETAL: No clubbing or cyanosis. NEUROLOGIC: No focal or lateralizing signs. Cranial nerves II through XII grossly intact. PSYCH: Appropriate affect. Alert and oriented to person, place and time. SKIN: Well perfused. Good skin turgor. ASSESSMENT: 1. Acute diverticulitis sigmoid colon 2. Fat-containing left inguinal hernia 3. Prostate cancer 4. Therapeutic INR, chronic Coumadin PLAN: -As pre-existing history of colon polyps last colonoscopy 10 years ago and may need future colonoscopy after current event resolves. -Continue antibiotics per infectious disease recommendations -Continue nothing by mouth -Continue IV fluids Physician Planning Consultant note has been reviewed by physician. Signing provider agrees with the documented findings, assessment, and plan of care. Objective - Vital Signs Vital signs: Vital Signs Temp 98.6 F 06/23/20 07:00 Pulse 112 H 06/23/20 08:00 Resp 16 06/23/20 08:00 BP 116/79 06/23/20 07:00 Pulse Ox 90 L 06/23/20 07:00 Intake & Output 06/22/20 06/23/20 06/23/20 18:59 06:59 18:59 Intake Total 1700 Balance 1700 Intake: Intake, IV Titration 1400 Amount Lactated Ringers 1,000 ml 1200 @ 125 mls/hr IV .Q8H ROSA Rx#:[id number] Piperacillin-Tazobactam 3 100 .375 gm In Sodium Chloride 0.9% 100 ml @ 25 mls/hr IVPB Q8HR ROSA Rx# :[id number] metroNIDAZOLE-NS PMX 500 100 mg In Saline 1 100ml.bag @ 100 mls/hr IVPB Q8H ROSA Rx#:[id number] Oral 300 Other: # Voids 2 2 2 - Labs CBC & Chem 7: 06/23/20 07:12 06/23/20 07:12 Labs: Abnormal Lab Results - Last 24 Hours (Table) 06/23/20 06/23/20 06/23/20 Range/Units 07:12 07:12 07:12 WBC 14.8 H (3.8-10.6) k/uL RBC 4.19 L (4.30-5.90) m/uL Hgb 12.0 L (13.0-17.5) gm/dL Hct 38.0 L (39.0-53.0) % Neutrophils # 13.7 H (1.3-7.7) k/uL Lymphocytes # 0.4 L (1.0-4.8) k/uL PT 50.8 H (9.9-11.9) sec INR 5.05 H* (0.90-1.11) BUN 41.0 H (9.0-27.0) mg/dL Creatinine 1.6 H (0.6-1.5) mg/dL Est GFR (CKD-EPI)AfAm 45.8 L (60.0-200.0) Est GFR (CKD-EPI)NonAf 39.5 L (60.0-200.0) BUN/Creatinine Ratio 25.63 H (12.00-20.00) Ratio Calcium 8.2 L (8.7-10.3) mg/dL AST 13 L (14-35) U/L Total Protein 4.3 L (6.2-8.2) g/dL Albumin 2.70 L (3.80-4.90) g/dL <Tosha Lau - Last Filed: 07/05/20 21:13> Subjective Patient seen and evaluated with above HISTORY OF PRESENT ILLNESS: The patient is a 80-year-old male with comorbidities including atrial fibrillation, chronic anticoagulation who presented with left inguinal hernia including acute diverticulitis. Abdominal pain has improved. No reports of peritonitis. ROS: No fevers or chills. No new chest pain. PHYSICAL EXAM: VITAL SIGNS: Reviewed CONSTITUTIONAL: Well developed and in no acute distress. EYES: Conjuctivae without sclera icterus. Extraocular movements grossly intact. HEAD, EARS, NOSE, THROAT: Moist buccal mucosa. Head is atraumatic, normocephalic. Hears conversational speech. No nasal drainage. NECK: Supple. No thyroidomegaly. RESPIRATORY: Non-labored respirations and equal bilateral excursions. CARDIOVASCULAR: Palpable 2+ radial pulses. He regular rate. Regular rhythm. ABDOMEN: Mild distention. Tenderness left groin. No diffuse peritonitis. MUSCULOSKELETAL: No gross deformity of the lower extremities noted. No clubbing. No cyanosis. SKIN: Good skin turgor. Well perfused. NEUROLOGIC: Cranial nerves II through XII grossly intact. No focal or lateralizing signs. PSYCH: Appropriate affect. Alert and oriented to person, place and time. CLINICAL LABS: White blood cell count increased from 15.4-14.8. Creatinine increased from 1.06 to 1.6. Baseline 1.06 upon admission. ASSESSMENT: 1. Acute diverticulitis with left inguinal hernia PLAN: 1. Continue IV antibiotics 2. Conservative management to high surgical risk 3. Will need correction of INR Objective - Vital Signs Vital signs: Vital Signs Temp 98.1 F 07/05/20 15:05 Pulse 89 07/05/20 15:05 Resp 16 07/04/20 15:48 BP 115/81 07/05/20 15:05 Pulse Ox 93 L 07/05/20 15:05 Intake & Output 07/05/20 07/05/20 07/06/20 06:59 18:59 06:59 Intake Total 140 570 Output Total 620 Balance 140 -50 Weight 93.5 kg Intake: IV 100 Piperacillin-Tazobactam 3 100 .375 gm In Sodium Chloride 0.9% 100 ml @ 25 mls/hr IVPB Q8HR ROSA Rx# :[id number] Intake, IV Titration 140 120 Amount Piperacillin-Tazobactam 3 100 .375 gm In Sodium Chloride 0.9% 100 ml @ 25 mls/hr IVPB Q8HR ROSA Rx# :[id number] Sodium Chloride 0.9% 1, 40 120 000 ml @ 20 mls/hr IV . Q24H ROSA Rx#:[id number] Oral 350 Output: Drainage 20 Abdomen 20 Urine 600 Other: Voiding Method Toilet Urinal # Voids 2 2 # Bowel Movements 2 - Labs CBC & Chem 7: 07/05/20 06:28 07/04/20 07:37 Labs: Abnormal Lab Results - Last 24 Hours (Table) 07/05/20 07/05/20 Range/Units 06:28 06:28 RBC 3.41 L (4.30-5.90) m/uL Hgb 9.8 L (13.0-17.5) gm/dL Hct 29.8 L (39.0-53.0) % Lymphocytes # 0.8 L (1.0-4.8) k/uL PT 35.4 H (9.9-11.9) sec INR 3.47 H (0.90-1.11) Assessment and Plan (1) Sigmoid diverticulitis Status: Acute Code(s): K57.32 - DVTRCLI OF LG INT W/O PERFORATION OR ABSCESS W/O BLEEDING SNOMED Code(s): 979893320 (2) Prostate cancer Status: Acute Code(s): C61 - MALIGNANT NEOPLASM OF PROSTATE SNOMED Code(s): 270881106 (3) Atrial fibrillation Status: Acute Code(s): I48.91 - UNSPECIFIED ATRIAL FIBRILLATION SNOMED Code(s): 88907327 (4) Anticoagulated on Coumadin Status: Acute Code(s): Z79.01 - FPC (CURRENT) USE OF ANTICOAGULANTS SNOMED Code(s): 35083647 (5) Pneumoperitoneum Status: Acute Code(s): K66.8 - OTHER SPECIFIED DISORDERS OF PERITONEUM SNOMED Code(s): 33316822 (6) Sepsis due to anaerobes Status: Acute Code(s): A41.4 - SEPSIS DUE TO ANAEROBES SNOMED Code(s): 608144794 (7) Altered mental status Status: Acute Code(s): R41.82 - ALTERED MENTAL STATUS, UNSPECIFIED SNOMED Code(s): 389991064 (8) Left inguinal hernia Status: Acute Code(s): K40.90 - UNIL INGUINAL HERNIA, W/O OBST OR GANGR, NOT SPCF RECUR SNOMED Code(s): 768865455
--- NOTE | 2020-06-23 16:36 | PN ---
PROGRESS NOTE DATE OF SERVICE: 06/23/2020 REASON FOR FOLLOWUP: Acute diverticulitis. INTERVAL HISTORY: The patient is currently afebrile. The patient is breathing comfortably. Denies having any chest pain or shortness of breath or cough. Still complaining of pain to the left abdominal area, about 9/10. Denies any nausea. No vomiting. Did not have any bowel movement. PHYSICAL EXAMINATION: Blood pressure 116/79 with a pulse of 112, temperature 98.3. He is 98% on room air. General description is an elderly male lying in bed in no distress. RESPIRATORY SYSTEM: Unlabored breathing. Clear to auscultation anteriorly. HEART: S1, S2. Regular rate and rhythm. ABDOMEN: Soft. Mildly tender in the left lower quadrant area. LABS: Hemoglobin is 12, white count 14.8. Creatinine is 1.6. DIAGNOSTIC IMPRESSION AND PLAN: Patient with acute sigmoid diverticulitis in this patient currently covered with Zosyn. White count is slightly improved. To continue monitoring the patient closely and continue with supportive care. Family at the bedside. Questions were answered. MMODL / IJN: [id number] /
[2020-06-23] MEDS: traZODone HCL 50 MG TAB PO SCH (21:17)
--- NOTE | 2020-06-23 21:57 | P.PN ---
Progress Note - Text Progress Note Date: 06/23/20 Chief Complaint: Abdominal pain History of presenting complaint: This is a very pleasant 80-year-old patient of Dr. Joel. Chronic stable medical conditions include paroxysmal atrial fibrillation on Coumadin, hypertension, prostate cancer treated by surgery and followed by radiation treatment a year later, back surgery. The last 2 or 3 days patient with having increasing lower abdominal pain started off with nausea after he presented today also vomited couple of times. Denied any fever and chills. Patient baseline normally has 2 or 3 bowel movements a day. Last bowel movement was 2 days ago. Abdomen felt distended. Computed tomography scan of the abdomen that showed extensive sigmoid diverticulosis with asymmetry with a segment of diverticulitis and some fat and fluid containing left inguinal hernia and few fluid-filled loops of distal ileum. Today-no further nausea vomiting. Getting IV fluids. Abdominal pain present. Has not lost any flatus Review of systems: Was done for constitutional, cardiovascular, GI, pulmonary. relevant finding as above Active Medications Amlodipine Besylate (Amlodipine 10 Mg Tab) 10 mg PO DAILY [facility] Last Admin: 06/23/20 07:27 Dose: 10 mg Documented by: Piperacillin Sod/Tazobactam (Sod 3.375 gm/ Sodium Chloride) 100 mls @ 25 mls/hr IVPB Q8HR [facility] Last Admin: 06/23/20 17:13 Dose: 25 mls/hr Documented by: Lactated Ringer's (Lactated Ringers) 1,000 mls @ 125 mls/hr IV .Q8H [facility] Last Admin: 06/23/20 21:20 Dose: 125 mls/hr Documented by: Metronidazole 500 mg/ IV (Solution) 100 mls @ 100 mls/hr IVPB Q6HR [facility] Last Admin: 06/23/20 18:14 Dose: 100 mls/hr Documented by: Morphine Sulfate (Morphine Sulfate 4 Mg/Ml Syringe) 4 mg IVP Q4HR PRN PRN Reason: Pain Last Admin: 06/23/20 17:13 Dose: 4 mg Documented by: Ondansetron HCl (Ondansetron 4 Mg/2 Ml Vial) 4 mg IVP Q6HR PRN PRN Reason: Nausea And Vomiting Last Admin: 06/22/20 09:14 Dose: 4 mg Documented by: Pantoprazole Sodium (Pantoprazole 40 Mg/10 Ml Vial) 40 mg IVP DAILY [facility] Last Admin: 06/23/20 07:28 Dose: 40 mg Documented by: Prochlorperazine Maleate (Prochlorperazine 10 Mg Tab) 10 mg PO Q6HR PRN PRN Reason: Nausea And Vomiting Trazodone HCl (Trazodone Hcl 50 Mg Tab) 50 mg PO HS [facility] Last Admin: 06/23/20 21:17 Dose: 50 mg Documented by: Physical examination: VITAL SIGNS: 98.6, 112, 16, 116/79, 90% on room air GENERAL: Laying in bed, woke comfortable. EYES: Pupils equal. Conjunctiva normal. HEENT: External appearance of nose and ears normal, oral cavity grossly normal. NECK: JVD not raised; masses not palpable. HEART: First and second heart sounds are normal; no edema. LUNGS: Respiratory rate normal; clear to auscultation. ABDOMEN: Soft, left lower quadrant tenderness, no guarding rigidity, liver spleen not palpable, no masses palpable. PSYCH: [Alert and oriented x3; mood and affect anxious . INVESTIGATIONS, reviewed in the clinical context: White count 14.8 hemoglobin 12 INR 5.05 potassium 4.3 creatinine 1.6 Previous testing White count 15.4 hemoglobin 13.5 platelets 196 INR 4.8 potassium 3.7 creatinine 1.06 Computed tomography scan of the abdomen pelvis-sigmoid diverticulosis with diverticulitis. No free air. Some air-fluid levels in the distal ileum Assessment: -Acute severe sigmoid diverticulitis-slow to respond -Acute kidney injury likely from hypotension -Colonic diverticulosis -Element of small bowel ileus -Paroxysmal atrial fibrillation chronically on Coumadin -Coumadin monitoring with toxicity-give vitamin K. -Prostate cancer with a history of surgery and radiation treatment -Hypoalbuminemia-reactive Plan: Continue with IV Zosyn and Flagyl. Patient remains nothing by mouth. Getting IV fluids. 5 mg of vitamin K ordered. Repeat labs in the morning including INR BNP. Care discussed with the patient.
[2020-06-24] MEDS: PIPERACILLIN-TAZOBACTAM 3.375 GM in SODIUM CHLORIDE 0.9% 100 ML IVPB SCH ×3 (00:35→15:52)
[2020-06-24] MEDS: metroNIDAZOLE-NS PMX 500 MG in SALINE 1 100ML.BAG IVPB SCH ×4 (00:36→18:17)
[2020-06-24] MEDS: MORPHINE SULFATE 4 MG/ML SYRINGE IVP PRN ×3 (00:44→13:05)
[2020-06-24] MEDS: LACTATED RINGERS 1,000 ML IV SCH ×3 (05:17→22:08)
[2020-06-24 06:22] LABS: HCT 39.2 % (39.0-53.0); HGB 12.1 gm/dL (13.0-17.5); Hypochromasia Slight; MCH 28.2 pg (25.0-35.0); MCV 90.9 fL (80.0-100.0); Mean Platelet Volume 8.4; Platelet Count 195 k/uL (150-450); RBC 4.31 m/uL (4.30-5.90); RDW 14.5 % (11.5-15.5); WBC 15.7 k/uL (3.8-10.6)
[2020-06-24] MEDS: amLODIPine 10 MG TAB PO SCH (07:21)
[2020-06-24] MEDS: PANTOPRAZOLE 40 MG/10 ML VIAL IVP SCH (07:21)
[2020-06-24 08:24] LABS: INR 1.3 (<1.2); Prothrombin Time 13.3 sec (9.0-12.0)
[2020-06-24 09:27] LABS: African American GFR (CKD) 42.6 (60.0-200.0); Anion Gap 5.1 mmol/L (4.00-12.00); Calcium 8.6 mg/dL (8.7-10.3); Carbon Dioxide 25.9 mmol/L (21.6-31.8); Non-African American GFR(CKD) 36.7 (60.0-200.0); Potassium 4.7 mmol/L (3.5-5.5)
[2020-06-24] MEDS: ONDANSETRON 4 MG/2 ML VIAL IVP PRN (09:52)
--- NOTE | 2020-06-24 15:54 | P.PN ---
Subjective Progress Note Date: 06/24/20 CHIEF COMPLAINT: Sigmoid diverticulitis HISTORY OF PRESENT ILLNESS: The patient is a 80-year-old male with comorbidities including atrial fibrillation, chronic anticoagulation who presented with left i nguinal hernia including acute diverticulitis. at bedside. Patient reports he is able to walk and ambulate without any increased abdominal pain. He points to his left groin where he has most of his pain. No fevers. Per nurse, he had emesis this morning following administration of morphine. Patient reports increased gas bloat. He had an acute attack of pain as witnessed by his . He reports feeling better than yesterday. He has been NPO for 2 days. ROS: No fevers or chills. No new chest pain. PHYSICAL EXAM: VITAL SIGNS: Reviewed CONSTITUTIONAL: Well developed and in no acute distress. EYES: Conjuctivae without sclera icterus. Extraocular movements grossly intact. HEAD, EARS, NOSE, THROAT: Moist buccal mucosa. Head is atraumatic, normocephalic. Hears conversational speech. No nasal drainage. NECK: Supple. No thyroidomegaly. RESPIRATORY: Non-labored respirations and equal bilateral excursions. CARDIOVASCULAR: Palpable 2+ radial pulses. ABDOMEN: Tender left groin. No peritonitis. No tenderness to palpation along the left lower quadrant. Mild distention. MUSCULOSKELETAL: No gross deformity of the lower extremities noted. No clubbing. No cyanosis. SKIN: Good skin turgor. Well perfused. NEUROLOGIC: Cranial nerves II through XII grossly intact. No focal or l ateralizing signs. PSYCH: Appropriate affect. Alert and oriented to person, place and time. CLINICAL LABS: White blood cell count trending from 15.4 and now 15.7. Creatinine elevated 1.7. Baseline 1.06 upon admission. INR down from 5.05-1.3 after vitamin K 5 mg STUDIES: Abdominal x-ray independent review demonstrated free air underneath the right hemidiaphragm. Some gas present in the rectum. ASSESSMENT: 1. Sigmoid diverticulitis 2. Left inguinal hernia 3. Atrial fibrillation PLAN: 1. He has history of afib and INR is less than 2.0 2. He is symptomatic from his left inguinal hernia and will need surgical intervention 3. AXR for increased abdominal distention described 4. Start liquids in interim 5. Adjust coumadin/blood thinner for anticipated surgery including new renal impairment 6. Nephrology consultation for new acute renal failure 7. ECHO for uncontrolled atrial fibrillation and cardiac risk assessment including cardiology consultation Objective - Vital Signs Vital signs: Vital Signs Temp 97.7 F 06/24/20 15:00 Pulse 99 06/24/20 15:00 Resp 18 06/24/20 15:00 BP 129/84 06/24/20 15:00 Pulse Ox 91 L 06/24/20 15:00 Intake & Output 06/23/20 06/24/20 06/24/20 18:59 06:59 18:59 Intake Total 975 0 Balance 975 0 Intake: Intake, IV Titration 850 Amount Lactated Ringers 1,000 ml 650 @ 125 mls/hr IV .Q8H [facility]A Rx#:[id number] Piperacillin-Tazobactam 3 100 .375 gm In Sodium Chloride 0.9% 100 ml @ 25 mls/hr IVPB Q8HR [facility]A Rx# :[id number] metroNIDAZOLE-NS PMX 500 100 mg In Saline 1 100ml.bag @ 100 mls/hr IVPB Q6HR [facility]A Rx#:[id number] Oral 125 0 Other: Voiding Method Toilet # Voids 2 2 1 - Labs CBC & Chem 7: 07/05/20 06:28 07/04/20 07:37 Labs: Abnormal Lab Results - Last 24 Hours (Table) 06/24/20 06/24/20 06/24/20 Range/Units 05:57 05:57 05:57 WBC 15.7 H (3.8-10.6) k/uL Hgb 12.1 L (13.0-17.5) gm/dL PT 13.3 H (9.0-12.0) sec INR 1.3 H (<1.2) BUN 51.0 H (9.0-27.0) mg/dL Creatinine 1.7 H (0.6-1.5) mg/dL Est GFR (CKD-EPI)AfAm 42.6 L (60.0-200.0) Est GFR (CKD-EPI)NonAf 36.7 L (60.0-200.0) BUN/Creatinine Ratio 30.00 H (12.00-20.00) Ratio Calcium 8.6 L (8.7-10.3) mg/dL Assessment and Plan (1) Sigmoid diverticulitis Status: Acute Code(s): K57.32 - DVTRCLI OF LG INT W/O PERFORATION OR ABSCESS W/O BLEEDING SNOMED Code(s): 737423263 (2) Prostate cancer Status: Acute Code(s): C61 - MALIGNANT NEOPLASM OF PROSTATE SNOMED Code(s): 965820649 (3) Atrial fibrillation Status: Acute Code(s): I48.91 - UNSPECIFIED ATRIAL FIBRILLATION SNOMED Code(s): 22970197 (4) Anticoagulated on Coumadin Status: Acute Code(s): Z79.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
--- NOTE | 2020-06-24 17:25 | PN ---
PROGRESS NOTE DATE OF SERVICE: 06/24/2020 REASON FOR FOLLOWUP: Acute sigmoid diverticulitis. INTERVAL HISTORY: Patient is currently afebrile. The patient is breathing comfortably. Denies having any chest pain. No shortness of breath or cough. Abdominal pain has decreased in intensity. Still does not have any bowel movement. No nausea, no vomiting. PHYSICAL EXAMINATION: Blood pressure 129/84 with a pulse of 99. Temperature is 97.7. He is 91% on room air. General description: The patient is an elderly male lying in bed in no distress. Respiratory system: Unlabored breathing, clear to auscultation anteriorly. Heart S1, S2. Regular rate and rhythm. ABDOMEN: Soft, mildly tender. No guarding. No rigidity. LABS: Hemoglobin is 12.1, white count 15.7, creatinine 1.7. DIAGNOSTIC IMPRESSION AND PLAN: Patient with acute sigmoid diverticulitis, now with clinically. The patient is currently covered with Zosyn to continue while monitoring clinical course closely. Continue supportive care. MMODL / IJN: [id number] /
[2020-06-24] MEDS ORDERED: WARFARIN 5 MG TAB PO SCH (20:00)
--- NOTE | 2020-06-24 20:36 | P.PN ---
Progress Note - Text Progress Note Date: 06/24/20 Chief Complaint: Abdominal pain History of presenting complaint: This is a very pleasant 80-year-old patient of Dr. Joel. Chronic stable medical conditions include paroxysmal atrial fibrillation on Coumadin, hypertension, prostate cancer treated by surgery and followed by radiation treatment a year later, back surgery. The last 2 or 3 days patient with having increasing lower abdominal pain started off with nausea after he presented today also vomited couple of times. Denied any fever and chills. Patient baseline normally has 2 or 3 bowel movements a day. Last bowel movement was 2 days ago. Abdomen felt distended. Computed tomography scan of the abdomen that showed extensive sigmoid diverticulosis with asymmetry with a segment of diverticulitis and some fat and fluid containing left inguinal hernia and few fluid-filled loops of distal ileum. Admitted with acute sigmoid diverticular to severe, with ileus. Coumadin toxicity for which she received vitamin K. Today-passed a small amount of flatus. No nausea vomiting. Slight decrease in abdominal distention. Abdominal pain is present. IV fluids. Girlfriend present. Review of systems: Was done for constitutional, cardiovascular, GI, pulmonary. relevant finding as above Active Medications Amlodipine Besylate (Amlodipine 10 Mg Tab) 10 mg PO DAILY [facility] Last Admin: 06/24/20 07:21 Dose: 10 mg Documented by: Heparin Sodium (Porcine) (Heparin Sodium,Porcine 5,000 Unit/Ml 1 Ml Vial) 5,000 unit SQ Q12HR ROSA Piperacillin Sod/Tazobactam (Sod 3.375 gm/ Sodium Chloride) 100 mls @ 25 mls/hr IVPB Q8HR [facility] Last Admin: 06/24/20 15:52 Dose: 25 mls/hr Documented by: Lactated Ringer's (Lactated Ringers) 1,000 mls @ 125 mls/hr IV .Q8H [facility] Last Admin: 06/24/20 12:03 Dose: 125 mls/hr Documented by: Metronidazole 500 mg/ IV (Solution) 100 mls @ 100 mls/hr IVPB Q6HR [facility] Last Admin: 06/24/20 18:17 Dose: 100 mls/hr Documented by: Morphine Sulfate (Morphine Sulfate 4 Mg/Ml Syringe) 4 mg IVP Q4HR PRN PRN Reason: Pain Last Admin: 06/24/20 13:05 Dose: 4 mg Documented by: Ondansetron HCl (Ondansetron 4 Mg/2 Ml Vial) 4 mg IVP Q6HR PRN PRN Reason: Nausea And Vomiting Last Admin: 06/24/20 09:52 Dose: 4 mg Documented by: Pantoprazole Sodium (Pantoprazole 40 Mg/10 Ml Vial) 40 mg IVP DAILY [facility] Last Admin: 06/24/20 07:21 Dose: 40 mg Documented by: Prochlorperazine Maleate (Prochlorperazine 10 Mg Tab) 10 mg PO Q6HR PRN PRN Reason: Nausea And Vomiting Trazodone HCl (Trazodone Hcl 50 Mg Tab) 50 mg PO HS [facility] Last Admin: 06/23/20 21:17 Dose: 50 mg Documented by: Physical examination: VITAL SIGNS: 97.7, 99, 18, 1 29 x 84, 91% on room air GENERAL: Laying in bed, awake EYES: Pupils equal. Conjunctiva normal. HEENT: External appearance of nose and ears normal, oral cavity grossly normal. NECK: JVD not raised; masses not palpable. HEART: First and second heart sounds are normal; no edema. LUNGS: Respiratory rate normal; clear to auscultation. ABDOMEN: Soft, abdomen less distended, left lower quadrant tenderness, no guard ing rigidity, liver spleen not palpable, no masses palpable. PSYCH: Alert and oriented x3; mood and affect anxious . INVESTIGATIONS, reviewed in the clinical context: White count 15.7 hemoglobin 12.1 potassium 4.7 creatinine 1.7 INR 1.3 Previous testing White count 15.4 hemoglobin 13.5 platelets 196 INR 4.8 potassium 3.7 creatinine 1.06 Computed tomography scan of the abdomen pelvis-sigmoid diverticulosis with diverticulitis. No free air. Some air-fluid levels in the distal ileum Assessment: -Acute severe sigmoid diverticulitis-slow to respond -Acute kidney injury likely from hypotension-worsening -Colonic diverticulosis -Element of small bowel ileus -Paroxysmal atrial fibrillation chronically on Coumadin -Coumadin monitoring with toxicity-give vitamin K.-Corrected -Prostate cancer with a history of surgery and radiation treatment -Hypoalbuminemia-reactive Plan: Continue with IV Zosyn and Flagyl. Nothing by mouth. IV fluids. Encourage patient to be out of bed. Discussed with him and his girlfriend. We'll start Lovenox 80 mg subcu every 12. Coumadin being held. Patient may need a repeat computed tomography scan depending on clinical course. Repeat plain x-ray to morning.
[2020-06-24] MEDS ORDERED: ENOXAPARIN 80 MG/0.8 ML SYRINGE SQ SCH (21:00)
[2020-06-24] MEDS: HEPARIN SODIUM,PORCINE 5,000 UNIT/ML 1 ML VIAL SQ SCH (22:07)
[2020-06-24] MEDS: traZODone HCL 50 MG TAB PO SCH (22:07)
[2020-06-24] MEDS: METOPROLOL TARTRATE 25 MG TAB PO SCH (22:08)
[2020-06-25] MEDS: PIPERACILLIN-TAZOBACTAM 3.375 GM in SODIUM CHLORIDE 0.9% 100 ML IVPB SCH ×3 (00:25→22:06)
[2020-06-25] MEDS: metroNIDAZOLE-NS PMX 500 MG in SALINE 1 100ML.BAG IVPB SCH ×4 (00:25→22:07)
[2020-06-25] MEDS: MORPHINE SULFATE 4 MG/ML SYRINGE IVP PRN ×2 (05:06→11:14)
[2020-06-25] MEDS: LACTATED RINGERS 1,000 ML IV SCH ×3 (05:26→21:40)
[2020-06-25 06:22] LABS: Basophils % (A) 0 %; Eosinophils # (A) 0.1 k/uL (0-0.7); Eosinophils % (A) 1 %; HCT 39.1 % (39.0-53.0); HGB 11.9 gm/dL (13.0-17.5); Hypochromasia Slight; Lymphocytes # (A) 0.3 k/uL (1.0-4.8); Lymphocytes % (A) 2 %; MCH 27.6 pg (25.0-35.0); MCHC 30.5 g/dL (31.0-37.0); MCV 90.3 fL (80.0-100.0); Monocytes # (A) 0.6 k/uL (0-1.0); Monocytes % (A) 5 %; Neutrophils # (A) 12.7 k/uL (1.3-7.7); Neutrophils % (A) 92 %; Platelet Count 198 k/uL (150-450); RBC 4.33 m/uL (4.30-5.90); RDW 14.4 % (11.5-15.5); WBC 13.9 k/uL (3.8-10.6)
[2020-06-25 07:13] LABS: INR 1.4 (<1.2); Prothrombin Time 14.2 sec (9.0-12.0)
[2020-06-25] MEDS: METOPROLOL TARTRATE 25 MG TAB PO SCH (08:10)
[2020-06-25] MEDS: PANTOPRAZOLE 40 MG/10 ML VIAL IVP SCH (08:10)
[2020-06-25] MEDS: amLODIPine 10 MG TAB PO SCH (08:10)
[2020-06-25] MEDS: HEPARIN SODIUM,PORCINE 5,000 UNIT/ML 1 ML VIAL SQ SCH ×2 (08:10→22:07)
--- NOTE | 2020-06-25 09:30 | XR ---
EXAMINATION TYPE: XR abdomen acute w cxr DATE OF EXAM: 06/25/2020 COMPARISON: CT 06/22/2020 HISTORY: Abdominal pain TECHNIQUE: Supine, upright, and frontal chest views of the abdomen are obtained. FINDINGS: Pneumoperitoneum has developed in the interval. There are air-fluid levels suggesting underlying ileu s. Bone mineralization is stable. IMPRESSION: Interval development of extensive pneumoperitoneum. Result relayed telephone to the patient's nurse zachery t the time of interpretation to Theresa. A [place] critical message alert has been initiated for Tosha Lau via the [employer] on 06/25/2020 9:25 AM. This message alert has been sent to Tosha Lau via the preferences provided by the clinician for the receipt of Radiology Critical Findings. Message ID [id number].
[2020-06-25 09:59] LABS: African American GFR (CKD) 53.8 (60.0-200.0); Anion Gap 8.1 mmol/L (4.00-12.00); BUN/Creat Ratio 38.57 Ratio (12.00-20.00); Calcium 8.5 mg/dL (8.7-10.3); Carbon Dioxide 22.9 mmol/L (21.6-31.8); Non-African American GFR(CKD) 46.5 (60.0-200.0); Potassium 3.8 mmol/L (3.5-5.5)
--- NOTE | 2020-06-25 10:49 | P.PN ---
Subjective Progress Note Date: 06/25/20 CHIEF COMPLAINT: Sigmoid diverticulitis HISTORY OF PRESENT ILLNESS: The patient is a 80-year-old male with comorbidities including atrial fibrillation, chronic anticoagulation who presented with left i nguinal hernia including acute diverticulitis. He reports feeling fair today. No fevers. Heart rate under control. Cardiology consultation in progress. He had emesis yesterday. No reports of emesis today. He does report mild abdominal distention. He is passing flatus. ROS: No fevers or chills. No new chest pain. PHYSICAL EXAM: VITAL SIGNS: Reviewed CONSTITUTIONAL: Well developed and in no acute distress. EYES: Conjuctivae without sclera icterus. Extraocular movements grossly intact. HEAD, EARS, NOSE, THROAT: Moist buccal mucosa. Head is atraumatic, normocephalic. Hears conversational speech. No nasal drainage. NECK: Supple. No thyroidomegaly. RESPIRATORY: Non-labored respirations and equal bilateral excursions. CARDIOVASCULAR: Palpable 2+ radial pulses. ABDOMEN: Mild distention. Tenderness left groin. No diffuse peritonitis. MUSCULOSKELETAL: No gross deformity of the lower extremities noted. No clubbing. No cyanosis. SKIN: Good skin turgor. Well perfused. NEUROLOGIC: Cranial nerves II through XII grossly intact. No focal or lateralizing signs. PSYCH: Appropriate affect. Alert and oriented to person, place and time. CLINICAL LABS: White blood cell count decreased from 15.7-13.9, improved. Creatinine improved from 1.7 down to 1.4. Baseline 1.06 upon admission. STUDIES: Abdominal x-ray independent review demonstrated free air underneath the right hemidiaphragm. Some gas present in the rectum. ASSESSMENT: 1. Pneumoperitoneum, new. 2. Sigmoid diverticulitis 3. Left inguinal hernia 4. Atrial fibrillation PLAN: 1. Patient changed to nothing by mouth status. 2. Emergent surgical intervention with exploratory laparotomy with ostomy reviewed 3. Postoperative management intensive care unit advised 4. Patient elevated risk for lucie-operative complications due to pre-existing heart disease, chronic atrial fibrillation, chronic anticoagulation, acute perforated viscus, acute incarcerated left inguinal hernia Objective - Vital Signs Vital signs: Vital Signs Temp 97.7 F 06/25/20 07:00 Pulse 99 06/25/20 07:00 Resp 18 06/25/20 07:00 BP 146/91 06/25/20 07:00 Pulse Ox 95 06/25/20 07:00 Intake & Output 06/24/20 06/25/20 06/25/20 18:59 06:59 18:59 Intake Total 0 Balance 0 Intake: Oral 0 Other: Voiding Method Toilet Toilet # Voids 1 1 # Emeses 1 - Labs CBC & Chem 7: 06/25/20 05:24 06/25/20 05:24 Labs: Abnormal Lab Results - Last 24 Hours (Table) 06/25/20 06/25/20 06/25/20 Range/Units 05:24 05:24 05:24 WBC 13.9 H (3.8-10.6) k/uL Hgb 11.9 L (13.0-17.5) gm/dL MCHC 30.5 L (31.0-37.0) g/dL Neutrophils # 12.7 H (1.3-7.7) k/uL Lymphocytes # 0.3 L (1.0-4.8) k/uL PT 14.2 H (9.0-12.0) sec INR 1.4 H (<1.2) BUN 54.0 H (9.0-27.0) mg/dL Est GFR (CKD-EPI)AfAm 53.8 L (60.0-200.0) Est GFR (CKD-EPI)NonAf 46.5 L (60.0-200.0) BUN/Creatinine Ratio 38.57 H (12.00-20.00) Ratio Calcium 8.5 L (8.7-10.3) mg/dL Assessment and Plan (1) Sigmoid diverticulitis Current Visit: Yes Status: Acute Code(s): K57.32 - DVTRCLI OF LG INT W/O PERFORATION OR ABSCESS W/O BLEEDING SNOMED Code(s): 482606506 (2) Prostate cancer Current Visit: Yes Status: Acute Code(s): C61 - MALIGNANT NEOPLASM OF PROSTATE SNOMED Code(s): 889704059 (3) Atrial fibrillation Current Visit: Yes Status: Acute Code(s): I48.91 - UNSPECIFIED ATRIAL FIBRILLATION SNOMED Code(s): 16242031 (4) Anticoagulated on Coumadin Current Visit: Yes Status: Acute Code(s): Z79.01 - RETIREMENT (CURRENT) USE OF ANTICOAGULANTS SNOMED Code(s): 53054987 (5) Pneumoperitoneum Current Visit: Yes Status: Acute Code(s): K66.8 - OTHER SPECIFIED DISORDERS OF PERITONEUM SNOMED Code(s): 37983387
--- NOTE | 2020-06-25 11:00 | P.CRDCN ---
History of Present Illness Consult date: 06/25/20 History of present illness: CHIEF COMPLAINT: Surgical clearance HISTORY OF PRESENT ILLNESS: This is a 80-year old male with a past medical history significant for atrial fibrillation and hypertension. We have been asked to see the patient in consultation for surgical clearance. Patient is a poor historian and is unsure if he follows outpatient with a drama critic. Patient examined this morning at the bedside. He denies chest pain. Denies shortness of breath. It is noted the patient went into RVR overnight. He was started on Lopressor 25 mg daily. Heart rate is controlled at the time of my examination. DIAGNOSTICS: EKG reveals A. fib with RVR. Laboratory data: WBC 13.9. Hemoglobin 11.9. Platelet count 198. INR 1.4. Sodium 140. Potassium 3.8. BUN 54. Creatinine 1.4. Current home cardiac medications include Coumadin and Norvasc 10 mg daily. REVIEW OF SYSTEMS: At the time of my exam: CONSTITUTIONAL: Denies fever or chills. HEENT: Denies blurred vision, vision changes, or eye pain. Denies hemoptysis CARDIOVASCULAR: Denies chest pain, orthopnea, PND or palpitations RESPIRATORY: No shortness of breath. GASTROINTESTINAL: Denies abdominal pain. Denies nausea or vomiting. HEMATOLOGIC: Denies bleeding disorders. GENITOURINARY: Denies any blood in urine. SKIN: Denies pruitis. Denies rash. PHYSICAL EXAM: VITAL SIGNS: Reviewed. GENERAL: Well-developed in no acute distress. HEENT: Head is normocephalic. Pupils are equal, round. Sclerae anicteric. Mucous membranes of the mouth are moist. Neck supple. No JVD or thyromegaly LUNGS: Respirations even and unlabored. Lungs essentially clear to auscultation bilaterally. HEART: Irregular rate and rhythm. S1 and S2 heard. ABDOMEN: Soft. Mildly distended. Patient does have tenderness to left groin. EXTREMITIES: Normal range of motion. No clubbing or cyanosis. Peripheral pulses intact. No lower extremity edema NEUROLOGIC: Awake and alert. Oriented x 2. ASSESSMENT: Chronic persistent atrial fibrillation with RVR Pneumoperitoneum Sigmoid diverticulitis and left inguinal hernia Hypertension Acute kidney injury PLAN: Patient's abdominal x-ray this morning reveals pneumoperitoneum. Continue to hold Coumadin. Continue beta-ashvin. Continue telemetry monitoring. Will obtain 2D echo to assess cardiac structure and function Patient requires emergent surgical intervention and is scheduled for exploratory laparotomy today There is no absolute contraindication for surgical intervention from a cardiac standpoint as patient requires emergent surgical intervention We will continue to follow with the patient postoperatively and make further recommendations pending patient's progress Nurse practitioner note has been reviewed by physician. Signing provider agrees with the documented findings, assessment, and plan of care. 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 No international travel. No animal exposures. Has a second residence on [facility] Smoking Status: Never smoker Past Alcohol Use History: None Reported Past Drug Use History: None Reported - Past Family History Mother Family Medical History: Cancer Additional Family Medical History / Comment(s): FATHER (and mother)- CANCER Medications and Allergies Home Medications Medication Instructions Recorded Confirmed Type amLODIPine BESYLATE [Norvasc] 10 mg PO DAILY 02/21/14 06/22/20 History Multivitamins, Thera [Multivitamin 1 tab PO DAILY 04/12/18 06/22/20 History (formulary)] Warfarin [Coumadin] 5 mg PO TUSA@199904/12/18 06/22/20 History Warfarin [Coumadin] 2.5 mg PO SUMOWETHFR@199906/22/20 06/22/20 History traZODone HCL 50 mg PO HS 06/22/20 06/22/20 History Allergies Allergy/AdvReac Type Severity Reaction Status Date / Time Penicillins Allergy Rash/Hives Verified 06/22/20 07:57 Sulfa (Sulfonamide Allergy Rash/Hives Verified 06/22/20 07:57 Antibiotics) Physical Exam Vitals: Vital Signs Temp Pulse Resp BP Pulse Ox 06/25/20 07:00 97.7 F 99 18 146/91 95 06/25/20 04:05 98.0 F 94 18 118/71 92 L 06/25/20 03:40 18 06/25/20 00:10 18 06/24/20 19:34 97.8 F 121 H 18 122/75 90 L 06/24/20 19:10 18 06/24/20 15:00 97.7 F 99 18 129/84 91 L Intake and Output 06/24/20 06/25/20 06/25/20 22:59 06:59 14:59 Other: Voiding Method Toilet # Voids 1 1 Results 06/25/20 05:24 06/25/20 05:24 Cardiac Enzymes 06/25/20 Range/Units 05:24 Troponin I <0.012 (0.000-0.034) ng/mL Coagulation 06/25/20 Range/Units 05:24 PT 14.2 H (9.0-12.0) sec CBC 06/25/20 Range/Units 05:24 WBC 13.9 H (3.8-10.6) k/uL RBC 4.33 (4.30-5.90) m/uL Hgb 11.9 L (13.0-17.5) gm/dL Hct 39.1 (39.0-53.0) % Plt Count 198 (150-450) k/uL Comprehensive Metabolic Panel 06/25/20 Range/Units 05:24 Sodium 140 (135-145) mmol/L Potassium 3.8 (3.5-5.5) mmol/L Chloride 109 (96-109) mmol/L Carbon Dioxide 22.9 (21.6-31.8) mmol/L BUN 54.0 H (9.0-27.0) mg/dL Creatinine 1.4 (0.6-1.5) mg/dL Glucose 100 (70-110) mg/dL Calcium 8.5 L (8.7-10.3) mg/dL Current Medications Generic Name Dose Route Start Last Admin Trade Name Freq PRN Reason Stop Dose Admin Heparin Sodium (Porcine) 5,000 unit 06/24/20 21:00 06/25/20 08:10 Heparin Sodium,Porcine 5,000 Unit/Ml 1 Ml Vial SQ 5,000 unit Q12HR ROSA Administration Piperacillin Sod/Tazobactam 100 mls @ 25 mls/hr 06/22/20 16:00 06/25/20 08:11 Sod 3.375 gm/ Sodium Chloride IVPB 25 mls/hr Q8HR [facility] Administration Lactated Ringer's 1,000 mls @ 125 mls/hr 06/22/20 13:15 06/25/20 05:26 Lactated Ringers IV 125 mls/hr .Q8H [facility]A Administration Metronidazole 500 mg/ IV 100 mls @ 100 mls/hr 06/23/20 12:00 06/25/20 05:26 Solution IVPB 100 mls/hr Q6HR ROSA Administration Metoprolol Tartrate 25 mg 06/24/20 22:00 06/25/20 08:10 Metoprolol Tartrate 25 Mg Tab PO 25 mg DAILY ROSA Administration Morphine Sulfate 4 mg 06/22/20 04:14 06/25/20 05:06 Morphine Sulfate 4 Mg/Ml Syringe IVP 4 mg Q4HR PRN Administration Pain Ondansetron HCl 4 mg 06/22/20 04:14 06/24/20 09:52 Ondansetron 4 Mg/2 Ml Vial IVP 4 mg Q6HR PRN Administration Nausea And Vomiting Pantoprazole Sodium 40 mg 06/22/20 09:00 06/25/20 08:10 Pantoprazole 40 Mg/10 Ml Vial IVP 40 mg DAILY [facility]A Administration Prochlorperazine Maleate 10 mg 06/22/20 18:39 Prochlorperazine 10 Mg Tab PO Q6HR PRN Nausea And Vomiting Trazodone HCl 50 mg 06/22/20 21:00 06/24/20 22:07 Trazodone Hcl 50 Mg Tab PO 50 mg HS ROSA Administration Intake and Output 06/24/20 06/25/20 06/25/20 22:59 06:59 14:59 Other: Voiding Method Toilet # Voids 1 1 06/25/20 05:24 06/25/20 05:24
--- NOTE | 2020-06-25 13:25 | CONS ---
CONSULTATION REASON FOR CONSULT: Renal failure. HISTORY OF PRESENT ILLNESS: The patient is an 80-year-old male who was admitted to the hospital on 06/22/2020 with complaints of abdominal pain. The patient has a history of prostatic cancer status post radiation therapy. CT scan showed evidence of extensive sigmoid diverticulosis and a large left inguinal hernia with fluid-filled loops of distal ileum. The patient is scheduled for possible surgery today. He is maintained on IV fluids. His blood pressure has been slightly on the lower side, although none below 100 mmHg systolic. Patient is maintained on IV fluids at 125 mL an hour. Serum creatinine on admission was 1.0 and now it is at 1.7 mg/dL from yesterday 06/24/2020. CT scan on admission did not show any evidence of hydronephrosis. PAST MEDICAL HISTORY: Significant for hypertension, osteoarthritis, prostatic cancer status post surgery, left total knee arthroplasty, back surgeries, rotator cuff surgery bilaterally. SOCIAL HISTORY: Negative for smoking, drug abuse or alcohol abuse. MEDICATIONS: Medications at home prior to admission included Norvasc, Coumadin, trazodone, multivitamins. ALLERGIES: Include PENICILLIN, SULFA, WHICH CAUSE RASH AND HIVES. REVIEW OF SYSTEMS: As per HPI. Other systems negative. EXAMINATION: Patient is comfortable, awake, not in any acute distress. He is complaining of pain in the abdomen. On examination, blood pressure was 146/91, heart rate 99 per minute, he is afebrile. Examination of the heart S1, S2. Examination of the lungs, bilateral breath sounds are heard. Abdomen is soft, distended, mildly tender. Exam of lower extremities shows no evidence of edema. [employer] exam grossly intact. LABS: Not available from today. From yesterday sodium 140, potassium 4.7, BUN 51, serum creatinine 1.7 mg/dL. UA shows 1+ protein ketones and no cells noted. Lipase 21. ASSESSMENT: 1. Acute kidney injury most likely prerenal, continue with IV fluids. No evidence of obstruction on CT scan. However, we will check a postvoid residual as patient does not have a Granado catheter. He is not on any nephrotoxic agents and has not received any IV contrast. I will continue with the IV fluids. Continue with the empiric antibiotics for now. I will hold off on the Norvasc as blood pressure is on the lower side. Repeat labs today and then again in a.m. 2. Diverticulitis and left inguinal hernia, maintained on antibiotics and possibly going for surgery today, being followed by General surgery. 3. Coagulopathy with INR at 5, secondary to Coumadin. 4. Paroxysmal atrial fibrillation maintained on anticoagulation prior to admission. PLAN: Continue with IV fluids. Follow up on labs from today. Check postvoid residual. Repeat labs in a.m. Continue to avoid nephrotoxic agents. MMODL / IJN: [id number] /
--- NOTE | 2020-06-25 13:34 | P.PN ---
Progress Note - Text Progress Note Date: 06/25/20 Family at bedside including daughter and . Findings of new free air for perforated bowel described. Plan for exploratory laparotomy, ostomy, hernia repair described. Post-op care for ICU and ventilator reviewed. Advance directive and wishes of the patient also reviewed. described new change in mentation today. Diagrams of colon, ostomy, and care plan reviewed in detail including questions answered.
[2020-06-25] MEDS ORDERED: SUCCINYLCHOLINE CHLORIDE 100 MG/5 ML SYR IV ONE (16:32)
[2020-06-25] MEDS ORDERED: ONDANSETRON 4 MG/2 ML VIAL ONE (16:32)
[2020-06-25] MEDS ORDERED: fentaNYL (PF) 50 MCG/ML 2 ML AMP ONE (16:32)
[2020-06-25] MEDS ORDERED: NEOSTIGMINE 1 MG/ML 10 ML VIAL ONE (16:32)
[2020-06-25] MEDS ORDERED: ROCURONIUM BROMIDE 10 MG/ML 5 ML VIAL IV ONE (16:32)
[2020-06-25] MEDS ORDERED: ONDANSETRON 4 MG/2 ML VIAL IVP ONE (16:32)
[2020-06-25] MEDS ORDERED: PHENYLEPHRINE-0.9% NACL SYG 1 MG/10 ML SYRINGE ONE (16:32)
[2020-06-25] MEDS ORDERED: DEXAMETHASONE SOD PHOSPHATE 10 MG/ML 1 ML VIAL IV ONE (16:32)
[2020-06-25] MEDS ORDERED: fentaNYL (PF) 50 MCG/ML 2 ML AMP IVP ONE (16:32)
[2020-06-25] MEDS ORDERED: LIDOCAINE 1% INJ 10MG/ML (20 ML MDV) ONE (16:32)
[2020-06-25] MEDS ORDERED: GLYCOPYRROLATE 0.2 MG/ML 2 ML VIAL ONE (16:32)
[2020-06-25] MEDS ORDERED: DEXAMETHASONE SOD PHOSPHATE 10 MG/ML 1 ML VIAL ONE (16:32)
[2020-06-25] MEDS ORDERED: PROPOFOL 10 MG/ML 20 ML VIAL IV ONE (16:32)
--- NOTE | 2020-06-25 16:34 | PN ---
PROGRESS NOTE DATE OF SERVICE: 06/25/2020 REASON FOR FOLLOWUP: Acute sigmoid diverticulitis with perforation. INTERVAL HISTORY: Patient this morning did have abdominal pain. X-rays were done with evidence of pneumoperitoneum. The patient has been complaining of abdominal pain. No worsening though. Some nausea, but no vomiting. No chest pain, shortness of breath or cough. PHYSICAL EXAMINATION: Blood pressure 146/90 with a pulse of 99. Temperature 97.7. He is 95% on room air. General description: The patient is an elderly male lying in bed in no distress. Respiratory system: Unlabored breathing, clear to auscultation anteriorly. Heart S1, S2. Regular rate and rhythm. ABDOMEN: Soft, mild distended. No guarding. No rigidity. LABS: Hemoglobin 9.1, white count 13.9, BUN of 54, creatinine 1.4. DIAGNOSTIC IMPRESSION AND PLAN: Patient with acute sigmoid diverticulitis failing medical therapy, now with evidence of pneumoperitoneum. The patient is scheduled for OR this afternoon. We will keep the patient on Zosyn. Family at the bedside. Questions were answered. MMODL / IJN: [id number] /
[2020-06-25] MEDS ORDERED: LACTATED RINGERS 1,000 ML IV ONE ×4 (16:36→19:40)
[2020-06-25] MEDS ORDERED: SODIUM CHLORIDE 0.9% 100 ML with ceFAZolin 2,000 MG IV ONE ×2 (16:46)
[2020-06-25] MEDS ORDERED: SODIUM CHLORIDE 0.9% 100 ML IV ONE ×2 (17:30)
[2020-06-25] MEDS ORDERED: ACETAMINOPHEN IV (For NPO) 1,000 MG in EMPTY BAG 1 BAG IVPB ONE (20:01)
[2020-06-25] MEDS ORDERED: NALOXONE 0.4 MG/ML 1 ML VIAL IV PRN (20:01)
[2020-06-25] MEDS ORDERED: HYDROmorphone 1 MG/ML 1 ML SYRINGE IVP PRN (20:01)
[2020-06-25] MEDS: LABETALOL SYRINGE 5 MG/ML IVP ONE ×2 (20:13→20:46)
[2020-06-25] MEDS: HYDROmorphone 0.5 MG/0.5 ML SYRINGE IVP ONE ×2 (20:14→20:30)
--- NOTE | 2020-06-25 20:24 | P.PN ---
Progress Note - Text Progress Note Date: 06/25/20 Chief Complaint: Abdominal pain History of presenting complaint: This is a very pleasant 80-year-old patient of Dr. Joel. Chronic stable medical conditions include paroxysmal atrial fibrillation on Coumadin, hypertension, prostate cancer treated by surgery and followed by radiation treatment a year later, back surgery. The last 2 or 3 days patient with having increasing lower abdominal pain started off with nausea after he presented today also vomited couple of times. Denied any fever and chills. Patient baseline normally has 2 or 3 bowel movements a day. Last bowel movement was 2 days ago. Abdomen felt distended. Computed tomography scan of the abdomen that showed extensive sigmoid diverticulosis with asymmetry with a segment of diverticulitis and some fat and fluid containing left inguinal hernia and few fluid-filled loops of distal ileum. Admitted with acute sigmoid diverticular to severe, with ileus. Coumadin toxicity for which she received vitamin K. Today-so the patient is after. Abdominal x-rays come back showing free air. Patient's and daughter the bedside. Patient due to go down for surgery later this afternoon. Review of systems: Was done for constitutional, cardiovascular, GI, pulmonary. relevant finding as above Current medications reviewed in today's electronic records Physical examination: VITAL SIGNS: 97.9, 96, 16, 118/84, 90% GENERAL: Laying in bed, tired EYES: Pupils equal. Conjunctiva normal. HEENT: External appearance of nose and ears normal, oral cavity grossly normal. NECK: JVD not raised; masses not palpable. HEART: First and second heart sounds are normal; no edema. LUNGS: Respiratory rate normal; clear to auscultation. ABDOMEN: Soft, abdomen less distended, left lower quadrant tenderness, no guarding rigidity, liver spleen not palpable, no masses palpable. PSYCH: Alert and oriented x3; mood and affect anxious . INVESTIGATIONS, reviewed in the clinical context: White count 13.9 hemoglobin 11.9 potassium 3.8 creatinine 1.4 Abdominal x-ray film personally reviewed by me shows free air Previous testing White count 15.4 hemoglobin 13.5 platelets 196 INR 4.8 potassium 3.7 creatinine 1.06 Computed tomography scan of the abdomen pelvis-sigmoid diverticulosis with diverticulitis. No free air. Some air-fluid levels in the distal ileum Assessment: -Acute severe sigmoid diverticulitis-slow to respond -Bowel perforation with free air patient pending to go down to surgery this afternoon -Acute kidney injury likely from hypotension-worsening -Colonic diverticulosis -Element of small bowel ileus -Paroxysmal atrial fibrillation chronically on Coumadin -Coumadin monitoring with toxicity-give vitamin K.-Corrected -Prostate cancer with a history of surgery and radiation treatment -Hypoalbuminemia-reactive Plan: Care was discussed length with patient's and the daughter the bedside. Questions were answered. Antibiotics to continue. Patient admitted to the ICU following surgery. Total time spent was about 40 minutes with over 25 minutes of discussion
--- NOTE | 2020-06-25 20:38 | P.OP ---
Date of Procedure: 06/25/20 Description of Procedure: SURGEON: JUSTIN MULLIGAN MD PREOPERATIVE DIAGNOSES: 1. Pneumoperitoneum 2. Acute sigmoid diverticulitis 3. Incarcerated left inguinal hernia 4. Sepsis with mental status changes, new 5. Leukocytosis 6. Atrial fibrillation 7. Chronic Coumadin therapy 8. Hypertensive heart disease 9. History of prostate cancer 10. Status post pelvic radiation for prostate cancer POSTOPERATIVE DIAGNOSES: 1. Pneumoperitoneum 2. Acute sigmoid diverticulitis, perforated sigmoid diverticulitis 3. Incarcerated left inguinal hernia 4. Sepsis with mental status changes, new 5. Leukocytosis 6. Atrial fibrillation 7. Chronic Coumadin therapy 8. Hypertensive heart disease 9. History of prostate cancer 10. Status post pelvic radiation for prostate cancer 11. Pelvic diverticular abscess, left lower quadrant OPERATION: 1. Exploratory laparotomy with sigmoid resection for perforated sigmoid diverticulitis 2. Descending colostomy creation with rectal stump 3. Reduction and repair of incarcerated left inguinal hernia 4. Iwona's procedure for perforated sigmoid diverticulitis 5. Drainage of sigmoid diverticular abscess, 50 mL 6. Drainage of left inguinal canal, abscess, 20 mL 7. Peritoneal lavage over 3 liters normal saline 8. Placement of intraabdominal #19 Prince drain along the pelvis. 9. Placement of universal incisional PREVENA wound VAC system ANESTHESIA: General ESTIMATED BLOOD LOSS: 50 mL. SPECIMENS REMOVED: Sigmoid colon, aerobic and anaerobic culture pelvic abscess COMPLICATIONS: None. FINDINGS: 1. Perforated sigmoid colon at mid aspect, 50 mL gregorio purulence drained 2. Purulence tracking along the left paracolic gutter and lateral abdominal wall also drained 3. Incarcerated fat-containing left inguinal hernia incorporating epiploica sidewall of sigmoid colon with abscess drained from inguinal canal, 20 mL 4. Anterior stomach posterior stomach without perforation 5. Small bowel unremarkable 6. Rectal stump tagged with 3-0 Prolene INDICATIONS: The patient is a 80-year-old male with comorbidities including pelvic radiation for prostate cancer, hypertensive heart disease, chronic Coumadin therapy with presenting INR over 4.5, and atrial fibrillation who presented with left lower quadrant abdominal pain including incarcerated left inguinal hernia. Diagnostic studies were consistent with acute sigmoid diverticulitis. He then developed increased abdominal distention including new altered mental status. He had leukocytosis and diagnostic findings consistent with pneumoperitoneum, presentation of sepsis. Cardiac assessment was obtained including reversal of his INR prior. Emergent surgical intervention was described to the patient including and daughter at bedside. Laparotomy with ostomy creation including left inguinal hernia were reviewed. Placement of orogastric tube including a Granado catheter and prolonged intubation were reviewed. Postoperative care in intensive care unit was also described. All benefits and risks were described in detail and questions were answered. Informed consent was obtained. DESCRIPTION: Patient was brought to the operating room and was on scheduled IV antibiotics. The patient was placed in supine position whereby general induction was performed. Abdomen had been prepped and draped in the standard sterile fashion with attempted placement of nasogastric tube and Granado catheter. A timeout protocol was confirmed the surgical team. Earlier, patient had metoprolol 25 mg for rate control atrial fibrillation. Ioban draping was also placed to minimize any contamination to the skin. Next, using #10 blade, the abdomen was entered along the midline whereby an incision was made just above the umbilicus down to the pubis. The abdomen was inspected whereby the small bowel was unremarkable. Attention was brought to the pelvis where dense phlegmon was palpated along the left abdominal wall. A Buckwalter retractor system was placed for visualization. The small bowel was reflected into the upper abdomen and packed away with exposure of the descending sigmoid colon and rectum. The appendix was unremarkable. Along the white line of toldt of the descending colon, moderate pus was tracking along the sidewall of the colon to the sigmoid colon. Superior to the junction of the sigmoid rectal colon, gregorio stool was emanating along the left pelvis. The sigmoid colon mesentery including epiploica was tethered and incarcerated in a left direct inguinal hernia descending into the scrotum. The skin over the left groin was erythematous. Distal to the perforation site of the mid sigmoid colon, the colon mesentery was extremely dense and thick. The sigmoid mesentery was mobilized and prepared for resection using a Covidien tri-stapler 60 mm black staple load after 3 fires. The rest of the sigmoid colon was mobilized towards the descending colon at the white line of Toldt using Ethicon Enseal. The sigmoid colon was mobilized along the medial and lateral attachments with care to avoid injury to the ureters along the usual anatomical landmarks. Proximally, the colon was divided at the descending colon using Covidien tri- stapler, 60 mm black load. The descending colon was appeared for an ostomy. The specimen was passed off. Hemostasis was checked with electro Bovie cautery including Enseal. The pelvis including left lateral sidewall was copiously irrigated with 3 L of normal saline solution until the irrigant was clear. Likewise, the left inguinal canal was copiously irrigated and evacuated of all purulence until irrigant was clear. A round #19 David-Savage drain was placed along the deep pelvis anterior to the rectal stump after tagging the rectal stump using 3-0 Prolene. Next, the DEJON drain was tacked along the skin using a 2- 0 nylon. Attention was brought to the left inguinal hernia which was oversewn intraperitoneally using #1 VLOC, nonabsorbable closing the defect. Next, attention was brought to the delivering and creating of the descending colostomy. A point along the abdominal wall and rectus muscle was selected for the colostomy. Kathryn was used to elevate the skin and care was taken across in tangential manner to create the skin defect of approximately quarter-size. The fat of the skin was mobilized using a small rich. The rectus muscle was identified and scored with a cruciate scoring of electro- Bovie cautery. Next, using a muscle-splitting technique with a hemostat, the peritoneum was entered. The peritoneum was widened such that 2 fingerbreadths could easily pass for delivering and evaginating the descending portion of the colon through the skin. The abdominal cavity was copiously irrigated as described until completely clear and dried. The midline incision was closed using double-stranded #1 PDS. Next, the subcutaneous tissue was copiously irrigated with normal saline and hydrogen peroxide. For the rest of the incision, stainless steel skin linh were applied. The midline incision was covered using PREVENA wound VAC and attention was brought to maturation of the colostomy. The staple edge was divided and removed. Next quadrant sutures at 12 o'clock, 3 o'clock, 6 o'clock, and 9 o'clock position was made using serosa, mucosal and dermal bites using 2-0 Vicryl. Running 3-0 Vicryl was placed in between all quadrants sutures to completely mature the ostomy. Hemostasis was checked. A Coloplast was then placed. At the end of the procedure, needle, sponge, and instrument count had been verified correct by surgical product sales consultant. The patient's family was updated with intraoperative findings and were happy with the level of care.
--- NOTE | 2020-06-25 20:42 | XR ---
EXAMINATION TYPE: XR chest 1V portable DATE OF EXAM: 06/25/2020 COMPARISON: Prior chest x-ray 06/25/2020, 11/16/2014 HISTORY: Atelectasis TECHNIQUE: Single frontal view of the chest is obtained. FINDINGS: There is chronic elevation of the right hemidiaphragm, likely there is associated scarring or atelectasis along the right hemidiaphragm, in the retrocardiac region. Pneumoperitoneum has impro shelby, postop changes are noted over the anterior abdomen, surgical linh are present. No evident pne umothorax. Heart size may be accentuated by apical lordotic technique. The aorta is dense. IMPRESSION: Postop changes, chronic elevation of right hemidiaphragm as described with associated at electasis in the lung bases.
[2020-06-25 21:19] LABS: Glucose,Whole Blood 113 mg/dL (75-99)
[2020-06-25] MEDS: SODIUM CHLORIDE 0.9% 1,000 ML IV SCH (21:43)
[2020-06-25] MEDS: traZODone HCL 50 MG TAB PO SCH (22:02)
[2020-06-25 22:51] LABS: Basophils % (A) 0 %; Eosinophils % (A) 0 %; Hypochromasia Moderate; Lymphocytes # (A) 0.3 k/uL (1.0-4.8); Lymphocytes % (A) 2 %; MCH 28.4 pg (25.0-35.0); MCHC 30.9 g/dL (31.0-37.0); MCV 91.9 fL (80.0-100.0); Mean Platelet Volume 7.7; Monocytes # (A) 0.4 k/uL (0-1.0); Monocytes % (A) 3 %; Neutrophils # (A) 14.4 k/uL (1.3-7.7); Neutrophils % (A) 94 %; Platelet Count 228 k/uL (150-450); RBC 4.57 m/uL (4.30-5.90); RDW 14.7 % (11.5-15.5); WBC 15.2 k/uL (3.8-10.6)
[2020-06-25 22:56] LABS: INR 1.7 (<1.2); Partial Thromboplastin Time 34.5 sec (22.0-30.0); Prothrombin Time 16.4 sec (9.0-12.0)
[2020-06-25 23:09] LABS: Albumin 2.4 g/dL (3.5-5.0); Calcium 8.7 mg/dL (8.4-10.2); Potassium 3.7 mmol/L (3.5-5.1); Total Bilirubin 0.7 mg/dL (0.2-1.3); Total Protein 4.9 g/dL (6.3-8.2)
[2020-06-25] MEDS: SODIUM CHLORIDE 0.9% 500 ML 500 ML IV SCH ×2 (23:13→23:41)
[2020-06-25 23:48] LABS: Glucose,Whole Blood 139 mg/dL (75-99)
[2020-06-26 00:06] LABS: Appearance,Urine Turbid (Clear); Bacteria,Urine Rare /hpf; Bilirubin,Urine Negative (Negative); Blood,Urine Moderate (Negative); Color,Urine Yellow; Glucose,Urine (UA) Negative (Negative); Ketones,Urine 1+ (Negative); Leukocyte Esterase,Urine Small (Negative); Mucus,Urine Rare /hpf; Nitrite,Urine Negative (Negative); PH, Urine 5.5 (5.0-8.0); Protein,Urine 1+ (Negative); RBC,Urine 85 /hpf (0-5); Specific Gravity,Urine 1.029 (1.001-1.035); Squamous Epithelial Cell,Urine <1 /hpf (0-4); Urobilinogen,Urine <2.0 mg/dL (<2.0); WBC,Urine 9 /hpf (0-5)
[2020-06-26] MEDS: SODIUM CHLORIDE 0.9% 500 ML 500 ML IV SCH ×2 (00:22→01:00)
[2020-06-26] MEDS: MORPHINE SULFATE 4 MG/ML SYRINGE IVP PRN ×4 (00:59→20:06)
[2020-06-26] MEDS: PIPERACILLIN-TAZOBACTAM 3.375 GM in SODIUM CHLORIDE 0.9% 100 ML IVPB SCH ×4 (01:00→23:55)
[2020-06-26] MEDS: metroNIDAZOLE-NS PMX 500 MG in SALINE 1 100ML.BAG IVPB SCH ×5 (01:00→23:56)
[2020-06-26] MEDS: LACTATED RINGERS 1,000 ML IV SCH (06:06)
[2020-06-26] MEDS: SODIUM CHLORIDE 0.9% 1,000 ML IV SCH ×2 (06:07→17:15)
[2020-06-26 06:16] LABS: Glucose,Whole Blood 103 mg/dL (75-99)
[2020-06-26 06:45] LABS: Basophils % (A) 0 %; Eosinophils # (A) 0.1 k/uL (0-0.7); Eosinophils % (A) 1 %; HCT 43.4 % (39.0-53.0); HGB 12.9 gm/dL (13.0-17.5); Hypochromasia Moderate; Lymphocytes # (A) 0.4 k/uL (1.0-4.8); Lymphocytes % (A) 3 %; MCH 27.4 pg (25.0-35.0); MCHC 29.7 g/dL (31.0-37.0); MCV 92.1 fL (80.0-100.0); Mean Platelet Volume 7.9; Monocytes # (A) 0.6 k/uL (0-1.0); Monocytes % (A) 4 %; Neutrophils # (A) 13.8 k/uL (1.3-7.7); Neutrophils % (A) 93 %; Platelet Count 233 k/uL (150-450); RBC 4.71 m/uL (4.30-5.90); RDW 14.5 % (11.5-15.5); WBC 14.9 k/uL (3.8-10.6)
[2020-06-26 06:50] LABS: Calcium 8.6 mg/dL (8.4-10.2); Magnesium 2.2 mg/dL (1.6-2.3); Phosphorus 4.2 mg/dL (2.5-4.5); Potassium 4.2 mmol/L (3.5-5.1)
[2020-06-26 06:51] LABS: INR 1.8 (<1.2); Partial Thromboplastin Time 28.8 sec (22.0-30.0); Prothrombin Time 17.6 sec (9.0-12.0)
[2020-06-26] MEDS: HEPARIN SODIUM,PORCINE 5,000 UNIT/ML 1 ML VIAL SQ SCH ×2 (08:28→20:07)
[2020-06-26] MEDS: PANTOPRAZOLE 40 MG/10 ML VIAL IVP SCH (08:29)
[2020-06-26] MEDS: METOPROLOL TARTRATE 25 MG TAB PO SCH (08:31)
--- NOTE | 2020-06-26 08:46 | XR ---
EXAMINATION TYPE: XR chest 1V portable DATE OF EXAM: 06/26/2020 Comparison: 06/25/2020 Clinical History: 80-year-old male ex-lap, sepsis Findings: Continued asymmetric elevation right hemidiaphragm. This obscures the right heart margin. Patchy left basilar opacity persists. Mild interstitial prominence could reflect low lung volumes and crowded va scular markings. Overall unchanged. Impression: Similar asymmetric elevation right hemidiaphragm, consider possibility of hemidiaphragmatic paralysis . Hypoventilatory changes with either mild pulmonary vascular congestion or crowding of the vascular ma rkings. Patchy left basilar atelectasis and/or infiltrate persists.
--- NOTE | 2020-06-26 08:56 | P.PN ---
Subjective Progress Note Date: 06/26/20 Principal diagnosis: Long-standing persistent atrial fibrillation This is a pleasant 78-year-old gentleman with history of long-standing persistent atrial fibrillation as well as hypertension who developed sigmoid diverticulitis and pneumoperitoneum and he underwent surgery. We consulted to see the patient for the management of atrial fibrillation and also for preop cardiac assessment before noncardiac surgery. The patient was seen today June [id number]. He continues to be in atrial fibrillation was relatively controlled heart rate. He is on metoprolol by mouth. He was on oral anticoagulation was Coumadin which is on hold at this point. Objective - Vital Signs Vital signs: Vital Signs Temp 98.1 F 06/26/20 08:00 Pulse 109 H 06/26/20 08:00 Resp 14 06/26/20 08:00 BP 132/99 06/26/20 08:00 Pulse Ox 97 06/26/20 08:00 Intake & Output 06/25/20 06/26/20 06/26/20 18:59 06:59 18:59 Intake Total 3100 3300 300 Output Total 875 140 Balance 3100 2425 160 Weight 93.2 kg Intake: IV 3100 3300 300 ACETAMINOPHEN IV (For NPO 100 ) 1,000 mg In Empty Bag 1 bag @ 400 mls/hr IVPB ONCE ONE Rx#:[id number] Piperacillin-Tazobactam 3 100 .375 gm In Sodium Chloride 0.9% 100 ml @ 25 mls/hr IVPB Q8HR [facility] Rx# :[id number] Sodium Chloride 0.9% 1, 1900 200 000 ml @ 100 mls/hr IV . Q10H [facility] Rx#:[id number] Sodium Chloride 0.9% 500 1100 ml 500 ml @ 1000 mls/hr IV Q35M [facility] Rx#:[id number] Oral 0 Output: Drainage 80 Abdomen 80 Urine 745 140 Estimated Blood Loss 50 Other: Voiding Method Indwelling Catheter # Voids 3 - Constitutional General appearance: Present: no acute distress - Respiratory Respiratory: bilateral: diminished - Cardiovascular Rhythm: irregularly irregular Heart sounds: normal: S1, S2 - Labs CBC & Chem 7: 06/26/20 06:13 06/26/20 06:13 Labs: Abnormal Lab Results - Last 24 Hours (Table) 06/25/20 06/25/20 06/25/20 Range/Units 05:24 21:17 22:27 WBC (3.8-10.6) k/uL Hgb (13.0-17.5) gm/dL MCHC (31.0-37.0) g/dL Neutrophils # (1.3-7.7) k/uL Lymphocytes # (1.0-4.8) k/uL PT (9.0-12.0) sec INR (<1.2) APTT (22.0-30.0) sec Chloride 109 H (98-107) mmol/L BUN 54.0 H 46 H (9.0-27.0) mg/dL Est GFR (CKD-EPI)AfAm 53.8 L (60.0-200.0) Est GFR (CKD-EPI)NonAf 46.5 L (60.0-200.0) BUN/Creatinine Ratio 38.57 H (12.00-20.00) Ratio Glucose 128 H (74-99) mg/dL POC Glucose (mg/dL) 113 H (75-99) mg/dL Calcium 8.5 L (8.7-10.3) mg/dL Total Protein 4.9 L (6.3-8.2) g/dL Albumin 2.4 L (3.5-5.0) g/dL Urine Protein (Negative) Urine Ketones (Negative) Urine Blood (Negative) Ur Leukocyte Esterase (Negative) Urine RBC (0-5) /hpf Urine WBC (0-5) /hpf Urine Bacteria (None) /hpf Urine Mucus (None) /hpf 06/25/20 06/25/20 06/25/20 Range/Units 22:27 22:27 23:43 WBC 15.2 H (3.8-10.6) k/uL Hgb (13.0-17.5) gm/dL MCHC 30.9 L (31.0-37.0) g/dL Neutrophils # 14.4 H (1.3-7.7) k/uL Lymphocytes # 0.3 L (1.0-4.8) k/uL PT 16.4 H (9.0-12.0) sec INR 1.7 H (<1.2) APTT 34.5 H (22.0-30.0) sec Chloride (98-107) mmol/L BUN (9.0-27.0) mg/dL Est GFR (CKD-EPI)AfAm (60.0-200.0) Est GFR (CKD-EPI)NonAf (60.0-200.0) BUN/Creatinine Ratio (12.00-20.00) Ratio Glucose (74-99) mg/dL POC Glucose (mg/dL) (75-99) mg/dL Calcium (8.7-10.3) mg/dL Total Protein (6.3-8.2) g/dL Albumin (3.5-5.0) g/dL Urine Protein 1+ H (Negative) Urine Ketones 1+ H (Negative) Urine Blood Moderate H (Negative) Ur Leukocyte Esterase Small H (Negative) Urine RBC 85 H (0-5) /hpf Urine WBC 9 H (0-5) /hpf Urine Bacteria Rare H (None) /hpf Urine Mucus Rare H (None) /hpf 06/25/20 06/26/20 06/26/20 Range/Units 23:48 06:13 06:13 WBC 14.9 H (3.8-10.6) k/uL Hgb 12.9 L (13.0-17.5) gm/dL MCHC 29.7 L (31.0-37.0) g/dL Neutrophils # 13.8 H (1.3-7.7) k/uL Lymphocytes # 0.4 L (1.0-4.8) k/uL PT (9.0-12.0) sec INR (<1.2) APTT (22.0-30.0) sec Chloride 112 H (98-107) mmol/L BUN 46 H (9.0-27.0) mg/dL Est GFR (CKD-EPI)AfAm (60.0-200.0) Est GFR (CKD-EPI)NonAf (60.0-200.0) BUN/Creatinine Ratio (12.00-20.00) Ratio Glucose 114 H (74-99) mg/dL POC Glucose (mg/dL) 139 H (75-99) mg/dL Calcium (8.7-10.3) mg/dL Total Protein (6.3-8.2) g/dL Albumin (3.5-5.0) g/dL Urine Protein (Negative) Urine Ketones (Negative) Urine Blood (Negative) Ur Leukocyte Esterase (Negative) Urine RBC (0-5) /hpf Urine WBC (0-5) /hpf Urine Bacteria (None) /hpf Urine Mucus (None) /hpf 06/26/20 06/26/20 Range/Units 06:13 06:15 WBC (3.8-10.6) k/uL Hgb (13.0-17.5) gm/dL MCHC (31.0-37.0) g/dL Neutrophils # (1.3-7.7) k/uL Lymphocytes # (1.0-4.8) k/uL PT 17.6 H (9.0-12.0) sec INR 1.8 H (<1.2) APTT (22.0-30.0) sec Chloride (98-107) mmol/L BUN (9.0-27.0) mg/dL Est GFR (CKD-EPI)AfAm (60.0-200.0) Est GFR (CKD-EPI)NonAf (60.0-200.0) BUN/Creatinine Ratio (12.00-20.00) Ratio Glucose (74-99) mg/dL POC Glucose (mg/dL) 103 H (75-99) mg/dL Calcium (8.7-10.3) mg/dL Total Protein (6.3-8.2) g/dL Albumin (3.5-5.0) g/dL Urine Protein (Negative) Urine Ketones (Negative) Urine Blood (Negative) Ur Leukocyte Esterase (Negative) Urine RBC (0-5) /hpf Urine WBC (0-5) /hpf Urine Bacteria (None) /hpf Urine Mucus (None) /hpf Microbiology - Last 24 Hours (Table) 06/25/20 19:42 Gram Stain - Preliminary Other - Other Wound Culture - Preliminary 06/25/20 19:42 Anaerobic Culture - Preliminary Other - Other Assessment and Plan Assessment: Assessment #1 sigmoid diverticulitis and pneumoperitoneum #2 long-standing persistent atrial fibrillation #3 multiple comorbid conditions Plan #1 continue the current dose of metoprolol by mouth #2 start the Coumadin once is safe from the surgical standpoint overview #3 follow-up with the patient
[2020-06-26 09:17] LABS: % Iron Saturation 3.52 (15.00-50.00)
[2020-06-26 09:32] LABS: Ferritin 471.3 ng/mL (22.0-322.0)
[2020-06-26 11:47] LABS: Glucose,Whole Blood 102 mg/dL (75-99)
--- NOTE | 2020-06-26 11:56 | ECHOF ---
Referral Reason:atrial fibrillation MEASUREMENTS -------- HEIGHT: 177.8 cm WEIGHT: 93.0 kg BP: 136/98 IVSd: 1.3 cm (0.6 - 1.1) LVIDd: 3.9 cm (3.9 - 5.3) LVPWd: 1.3 cm (0.6 - 1.1) IVSs: 2.1 cm LVIDs: 2.6 cm LVPWs: 2.0 cm LA Diam: 3.2 cm (2.7 - 3.8) RVIDd: 3.1 cm (< 3.3) LAESV Index (A-L): 25.67 ml/m Ao Diam: 4.0 cm (2.0 - 3.7) AV Cusp: 1.9 cm (1.5 - 2.6) EPSS: 0.7 cm RAP: 5.00 mmHg RVSP: 30.27 mmHg MV EF SLOPE: 275.84 mm/s (70 - 150) MV EXCURSION: 15.27 mm (> 18.000) FINDINGS -------- Atrial fibrillation. This was a technically adequate study. The left ventricular size is normal. There is mild concentric left ventricular hypertrophy. Overa ll left ventricular systolic function is low-normal with, an EF between 50 - 55 %. The right ventricle is normal in size. Normal LA size by volume 22+/-6 ml/m2. The right atrium is normal in size. Trace to mild aortic regurgitation. There is no evidence of aortic stenosis. The mitral valve leaflets are mildly thickened. Mild mitral annular calcification present. Mild m itral regurgitation is present. Mild tricuspid regurgitation present. Right ventricular systolic pressure is normal at < 35 mmHg. Trace/mild (physiologic) pulmonic regurgitation. The aortic root is dilated measuring 4.0cm. IVC not available There is no pericardial effusion. CONCLUSIONS -------- 1. The left ventricular size is normal. 2. There is mild concentric left ventricular hypertrophy. 3. Overall left ventricular systolic function is low-normal with, an EF between 50 - 55 %. 4. Trace to mild aortic regurgitation. 5. There is no evidence of aortic stenosis. 6. The mitral valve leaflets are mildly thickened. 7. Mild mitral annular calcification present. 8. Mild mitral regurgitation is present. 9. Mild tricuspid regurgitation present. 10. Trace/mild (physiologic) pulmonic regurgitation. 11. The aortic root is dilated measuring 4.0cm. 12. IVC not available 13. There is no pericardial effusion. RUBBER LINER: Kristine Smart RDCS
--- NOTE | 2020-06-26 11:56 | P.PN ---
Subjective patient is seen in follow-up for acute kidney injury. Renal function improving. Currently maintained on IV fluids. underwent exploratory laparotomy with sigmoid resection for perforated sigmoid diverticulitis on June 25. hemodynamically stable. Vital signs are stable. General: The patient appeared well nourished and normally developed. HEENT: Head exam is unremarkable. Neck is without jugular venous distension. LUNGS: Breath sounds decreased. HEART: irregular rate and rhythm. ABDOMEN: surgical abdomen. Mild tenderness. EXTREMITITES: No edema. Objective - Vital Signs Vital signs: Vital Signs Temp 98.1 F 06/26/20 08:00 Pulse 90 06/26/20 11:00 Resp 14 06/26/20 11:00 BP 138/108 06/26/20 11:00 Pulse Ox 100 06/26/20 11:00 Intake & Output 06/25/20 06/26/20 06/26/20 18:59 06:59 18:59 Intake Total 3100 3300 600 Output Total 875 235 Balance 3100 2425 365 Weight 93.2 kg Intake: IV 3100 3300 600 ACETAMINOPHEN IV (For NPO 100 ) 1,000 mg In Empty Bag 1 bag @ 400 mls/hr IVPB ONCE ONE Rx#:[id number] Piperacillin-Tazobactam 3 100 .375 gm In Sodium Chloride 0.9% 100 ml @ 25 mls/hr IVPB Q8HR [facility] Rx# :[id number] Sodium Chloride 0.9% 1, 1900 500 000 ml @ 100 mls/hr IV . Q10H [facility] Rx#:[id number] Sodium Chloride 0.9% 500 1100 ml 500 ml @ 1000 mls/hr IV Q35M [facility] Rx#:[id number] Oral 0 Output: Drainage 80 Abdomen 80 Urine 745 235 Estimated Blood Loss 50 Other: Voiding Method Indwelling Catheter Indwelling Catheter # Voids 3 - Labs CBC & Chem 7: 06/26/20 06:13 06/26/20 06:13 Labs: Abnormal Lab Results - Last 24 Hours (Table) 06/25/20 06/25/20 06/25/20 Range/Units 21:17 22:27 22:27 WBC 15.2 H (3.8-10.6) k/uL Hgb (13.0-17.5) gm/dL MCHC 30.9 L (31.0-37.0) g/dL Neutrophils # 14.4 H (1.3-7.7) k/uL Lymphocytes # 0.3 L (1.0-4.8) k/uL PT (9.0-12.0) sec INR (<1.2) APTT (22.0-30.0) sec Chloride 109 H (98-107) mmol/L BUN 46 H (9-20) mg/dL Glucose 128 H (74-99) mg/dL POC Glucose (mg/dL) 113 H (75-99) mg/dL Iron (65-175) ug/dL TIBC (228-460) ug/dL % Saturation (15.00-50.00) Ferritin (22.0-322.0) ng/mL Total Protein 4.9 L (6.3-8.2) g/dL Albumin 2.4 L (3.5-5.0) g/dL Urine Protein (Negative) Urine Ketones (Negative) Urine Blood (Negative) Ur Leukocyte Esterase (Negative) Urine RBC (0-5) /hpf Urine WBC (0-5) /hpf Urine Bacteria (None) /hpf Urine Mucus (None) /hpf 06/25/20 06/25/20 06/25/20 Range/Units 22:27 23:43 23:48 WBC (3.8-10.6) k/uL Hgb (13.0-17.5) gm/dL MCHC (31.0-37.0) g/dL Neutrophils # (1.3-7.7) k/uL Lymphocytes # (1.0-4.8) k/uL PT 16.4 H (9.0-12.0) sec INR 1.7 H (<1.2) APTT 34.5 H (22.0-30.0) sec Chloride (98-107) mmol/L BUN (9-20) mg/dL Glucose (74-99) mg/dL POC Glucose (mg/dL) 139 H (75-99) mg/dL Iron (65-175) ug/dL TIBC (228-460) ug/dL % Saturation (15.00-50.00) Ferritin (22.0-322.0) ng/mL Total Protein (6.3-8.2) g/dL Albumin (3.5-5.0) g/dL Urine Protein 1+ H (Negative) Urine Ketones 1+ H (Negative) Urine Blood Moderate H (Negative) Ur Leukocyte Esterase Small H (Negative) Urine RBC 85 H (0-5) /hpf Urine WBC 9 H (0-5) /hpf Urine Bacteria Rare H (None) /hpf Urine Mucus Rare H (None) /hpf 06/26/20 06/26/20 06/26/20 Range/Units 06:13 06:13 06:13 WBC 14.9 H (3.8-10.6) k/uL Hgb 12.9 L (13.0-17.5) gm/dL MCHC 29.7 L (31.0-37.0) g/dL Neutrophils # 13.8 H (1.3-7.7) k/uL Lymphocytes # 0.4 L (1.0-4.8) k/uL PT 17.6 H (9.0-12.0) sec INR 1.8 H (<1.2) APTT (22.0-30.0) sec Chloride 112 H (98-107) mmol/L BUN 46 H (9-20) mg/dL Glucose 114 H (74-99) mg/dL POC Glucose (mg/dL) (75-99) mg/dL Iron 8 L (65-175) ug/dL TIBC 227 L (228-460) ug/dL % Saturation 3.52 L (15.00-50.00) Ferritin 471.3 H (22.0-322.0) ng/mL Total Protein (6.3-8.2) g/dL Albumin (3.5-5.0) g/dL Urine Protein (Negative) Urine Ketones (Negative) Urine Blood (Negative) Ur Leukocyte Esterase (Negative) Urine RBC (0-5) /hpf Urine WBC (0-5) /hpf Urine Bacteria (None) /hpf Urine Mucus (None) /hpf 06/26/20 06/26/20 Range/Units 06:15 11:46 WBC (3.8-10.6) k/uL Hgb (13.0-17.5) gm/dL MCHC (31.0-37.0) g/dL Neutrophils # (1.3-7.7) k/uL Lymphocytes # (1.0-4.8) k/uL PT (9.0-12.0) sec INR (<1.2) APTT (22.0-30.0) sec Chloride (98-107) mmol/L BUN (9-20) mg/dL Glucose (74-99) mg/dL POC Glucose (mg/dL) 103 H 102 H (75-99) mg/dL Iron (65-175) ug/dL TIBC (228-460) ug/dL % Saturation (15.00-50.00) Ferritin (22.0-322.0) ng/mL Total Protein (6.3-8.2) g/dL Albumin (3.5-5.0) g/dL Urine Protein (Negative) Urine Ketones (Negative) Urine Blood (Negative) Ur Leukocyte Esterase (Negative) Urine RBC (0-5) /hpf Urine WBC (0-5) /hpf Urine Bacteria (None) /hpf Urine Mucus (None) /hpf Microbiology - Last 24 Hours (Table) 06/25/20 19:42 Gram Stain - Preliminary Other - Other Wound Culture - Preliminary 06/25/20 19:42 Anaerobic Culture - Preliminary Other - Other Assessment and Plan Plan: assessment: 1. Acute kidney injury mostly prerenal improving with IV hydration. Creatinine 1.25 today. 2. Perforated diverticulitis with pneumoperitoneum status post exploratory laparotomy on June 25. 3. atrial fibrillation maintained on metoprolol. 4. Benign hypertension. Controlled. Plan: Maintain normal saline. Continue to monitor renal function and urine output. Avoid nephrotoxins.
[2020-06-26 12:13] LABS: Albumin 2.2 g/dL (3.5-5.0); Calcium 8.4 mg/dL (8.4-10.2); Potassium 3.9 mmol/L (3.5-5.1); Total Bilirubin 0.4 mg/dL (0.2-1.3); Total Protein 4.6 g/dL (6.3-8.2)
[2020-06-26] MEDS ORDERED: LIDOCAINE 1% INJ 10MG/ML (20 ML MDV) ONE (12:45)
[2020-06-26 12:58] VITALS: BMI 29.5
[2020-06-26] MEDS ORDERED: LIDOCAINE 1% INJ 10MG/ML (20 ML MDV) SQ ONE (13:09)
--- NOTE | 2020-06-26 13:28 | XR ---
EXAMINATION TYPE: XR chest 1V confirm line [facility] DATE OF EXAM: 06/26/2020 COMPARISON: 06/26/2020 HISTORY: 80-year-old male TECHNIQUE: Single frontal view of the chest is obtained. FINDINGS: Very low lung volumes. Cardiovascular markings. Patchy bibasilar opacities. No pneumothorax. Blunted right costophrenic angle could represent a trace effusion. New right PICC line with tip at the mid to lower SVC. IMPRESSION: Limited due to very low lung volumes. Possible trace right effusion. Mild patchy bibasilar areas of p robable atelectasis. New right PICC with tip at the mid to lower SVC.
[2020-06-26 13:41] LABS: Glucose,Whole Blood 98 mg/dL (75-99)
--- NOTE | 2020-06-26 13:49 | P.CNPUL ---
History of Present Illness Consult date: 06/26/20 Requesting physician: Quique Watson Reason for consult: other Chief complaint: Abdominal pain, perforated sigmoid diverticulitis, acute kidney injury History of present illness: 80-year-old white male patient who follows with Dr. Joel, has a past medical history of prostate cancer with prior surgery followed by radiation, hypertension, paroxysmal atrial fibrillation on Coumadin, chronic back pain, who came into the hospital on 06/22/2020 for evaluation of increasing lower abdominal pain of 2 day history with intermittent nausea and vomiting. Patient also complained of constipation. CT of the abdomen and pelvis showed extensive sigmoid diverticulosis with a segment of diverticulitis and some fat and fluid containing left inguinal hernia and few fluid-filled loops of distal ileum s uggestive of mild ileus. Initially patient was started on antibiotics, surgical consultation was obtained, patient was kept nothing by mouth. ID service was consulted, patient was being treated with the combination of Zosyn and Flagyl. Patient developed acute kidney injury likely from hypotension and ATN. Nephrology was consulted. Over the weekend patient has developed atrial fibrillation with RVR. Follow-up abdominal x-ray on 06/25/2020 showed pneumoperitoneum, requiring emergent surgical intervention. In the evening of 06/25/2020 patient underwent Holter laparotomy with sigmoid resection for perforated sigmoid diverticulitis, descending colostomy creation with rectal stump, reduction and repair of incarcerated left inguinal hernia, Luke's procedure for perforated sigmoid diverticulitis, drainage of sigmoid diverticula abscess, drainage of left inguinal canal abscess, and peritoneal lavage. Today is postoperative day #1. Patient is seen in the intensive care unit, patient came to the intensive care unit following his surgery last night extubated, on high flow oxygen at 8 L, and FiO2 is currently down to 3 L and pulse ox is between 97-100%. Patient is arousable, a bit drowsy, but slow to respond, inattentive. CAM-ICU was positive. Hemodynamically patient is stable. Currently on 0.9 normal saline at a rate of 100 ML per hour. No vasoactive drips, no other infusions. Remains nothing by mouth, slight abdominal tenderness, abdominal incision with a wound VAC in place the total of 80 ML drainage since surgery. Denies any difficulty breathing, breathing is comf ortable, this morning's chest x-ray shows elevation of the right hemidiaphragm with the possibility of hemidiaphragmatic paralysis, hypoventilatory changes with either mild pulmonary vascular congestion or oral crowding of the vascular markings. Patchy left basilar atelectasis. Patient continues on Zosyn and Flagyl for antibiotic coverage. Today's labs showed white blood cell count of 14.9, hemoglobin of 12.9, INR is 1.8, sodium is 140, potassium is 4.2, chloride is 112, BUN of 46, creatinine is 1.25, patient is receiving Dilantin for pain and discomfort, appears to be in no acute distress. He is in atrial fibrillation with a controlled rate, he is having an echocardiogram done. Review of Systems All systems: negative Constitutional: Denies chills, Denies fever Eyes: denies blurred vision, denies pain Ears, nose, mouth and throat: Denies headache, Denies sore throat Cardiovascular: Denies chest pain, Denies shortness of breath Respiratory: Reports dyspnea, Denies cough Gastrointestinal: Reports abdominal pain, Reports nausea, Reports vomiting, Denies diarrhea Musculoskeletal: Denies myalgias Integumentary: Denies pruritus, Denies rash Neurological: Denies numbness, Denies weakness Psychiatric: Denies anxiety, Denies depression Endocrine: Denies fatigue, Denies weight change Past Medical History Past Medical History: Cancer, Hypertension, Osteoarthritis (OA), Prostate Disorder History of Any Multi-Drug Resistant Organisms: None Reported Past Surgical History: Back Surgery, Joint Replacement, Prostate Surgery, Tonsillectomy Additional Past Surgical History / Comment(s): LT TOTAL KNEE; MULT SX ON RT KNEE; ROHITH ROTATOR CUFF SURG, CYST REMOVED; two back surgeries Past Anesthesia/Blood Transfusion Reactions: No Reported Reaction Past Psychological History: No Psychological Hx Reported Additional Psychological History / Comment(s): and lives with his . 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 No international travel. No animal exposures. Has a second residence on [facility] Smoking Status: Never smoker Past Alcohol Use History: None Reported Past Drug Use History: None Reported - Past Family History Mother Family Medical History: Cancer Additional Family Medical History / Comment(s): FATHER (and mother)- CANCER Medications and Allergies Home Medications Medication Instructions Recorded Confirmed Type amLODIPine BESYLATE [Norvasc] 10 mg PO DAILY 02/21/14 06/22/20 History Multivitamins, Thera [Multivitamin 1 tab PO DAILY 04/12/18 06/22/20 History (formulary)] Warfarin [Coumadin] 5 mg PO TUSA@199904/12/18 06/22/20 History Warfarin [Coumadin] 2.5 mg PO SUMOWETHFR@199906/22/20 06/22/20 History traZODone HCL 50 mg PO HS 06/22/20 06/22/20 History Allergies Allergy/AdvReac Type Severity Reaction Status Date / Time Penicillins Allergy Rash/Hives Verified 06/22/20 07:57 Sulfa (Sulfonamide Allergy Rash/Hives Verified 06/22/20 07:57 Antibiotics) Physical Exam Vitals: Vital Signs Temp Pulse Pulse Pulse Resp BP BP 06/26/20 11:00 90 14 138/108 06/26/20 10:00 95 14 136/98 06/26/20 09:00 109 H 14 132/96 06/26/20 08:00 98.1 F 109 H 14 132/99 06/26/20 07:00 117 H 12 156/111 06/26/20 06:00 113 H 14 130/82 06/26/20 05:00 97.8 F 104 H 10 L 122/81 06/26/20 04:00 98.0 F 93 89 11 L 140/99 06/26/20 03:30 101 H 9 L 06/26/20 03:00 118 H 12 134/92 06/26/20 02:30 124 H 15 134/92 06/26/20 02:00 113 H 15 134/92 06/26/20 01:30 100 9 L 146/98 06/26/20 01:00 98 12 132/95 06/26/20 00:30 100 10 L 135/98 06/26/20 00:00 98.0 F 97 89 10 L 137/95 06/25/20 23:30 93 9 L 127/99 06/25/20 23:26 90 11 L 137/94 06/25/20 23:00 109 H 14 137/94 06/25/20 22:30 98.2 F 89 13 137/94 06/25/20 22:00 92 10 L 131/102 06/25/20 20:55 89 18 143/104 06/25/20 20:41 87 16 146/103 06/25/20 20:26 88 18 141/102 06/25/20 20:11 101 H 16 160/104 06/25/20 19:54 98 F 96 14 143/105 06/25/20 15:00 97.9 F 96 16 118/84 Pulse Ox 06/26/20 11:00 100 06/26/20 10:00 99 06/26/20 09:00 97 06/26/20 08:00 97 06/26/20 07:00 97 06/26/20 06:00 94 L 06/26/20 05:00 97 06/26/20 04:00 96 06/26/20 03:30 97 06/26/20 03:00 98 06/26/20 02:30 97 06/26/20 02:00 95 06/26/20 01:30 94 L 06/26/20 01:00 95 06/26/20 00:30 95 06/26/20 00:00 93 L 06/25/20 23:30 95 06/25/20 23:26 95 06/25/20 23:00 97 06/25/20 22:30 95 06/25/20 22:00 96 06/25/20 20:55 96 06/25/20 20:41 96 06/25/20 20:26 98 06/25/20 20:11 92 L 06/25/20 19:54 97 06/25/20 15:00 90 L Intake and Output 06/25/20 06/26/20 06/26/20 22:59 06:59 14:59 Intake Total 3500 2900 600 Output Total 240 635 235 Balance 3260 2265 365 Intake: IV 3500 2900 600 ACETAMINOPHEN IV (For NPO 100 ) 1,000 mg In Empty Bag 1 bag @ 400 mls/hr IVPB ONCE ONE Rx#:[id number] Piperacillin-Tazobactam 3 100 .375 gm In Sodium Chloride 0.9% 100 ml @ 25 mls/hr IVPB Q8HR [facility] Rx# :[id number] Sodium Chloride 0.9% 1, 100 1800 500 000 ml @ 100 mls/hr IV . Q10H [facility] Rx#:[id number] Sodium Chloride 0.9% 500 1100 ml 500 ml @ 1000 mls/hr IV Q35M [facility] Rx#:[id number] Output: Drainage 80 Abdomen 80 Urine 190 555 235 Estimated Blood Loss 50 Other: Voiding Method Indwelling Catheter Indwelling Catheter Weight 93.2 kg 93.2 kg GENERAL EXAM: Slightly drowsy but opens eyes to voice, and response, although verbal responses are bit slow, 80-year-old white male, 2 L of oxygen and the pulse ox of 99-100% comfortable in no apparent distress. HEAD: Normocephalic/atraumatic. EYES: Normal reaction of pupils, equal size. Conjunctiva pink, sclera white. NOSE: Clear with pink turbinates. THROAT: No erythema or exudates. NECK: No masses, no JVD, no thyroid enlargement, no adenopathy. CHEST: No chest wall deformity. Symmetrical expansion. LUNGS: Equal air entry with no crackles, wheeze, rhonchi or dullness. CVS: Regular rate and rhythm, normal S1 and S2, no gallops, no murmurs, no rubs ABDOMEN: Soft, nontender. No hepatosplenomegaly, normal bowel sounds, no guarding or rigidity. Midabdominal incision with a wound VAC in place, colostomy in place, with no gas or stool in it EXTREMITIES: No clubbing, no edema, no cyanosis, 2+ pulses and upper and lower extremities. MUSCULOSKELETAL: Muscle strength and tone normal. SPINE: No scoliosis or deformity SKIN: No rashes CENTRAL NERVOUS SYSTEM: Slightly drowsy and oriented -1. No focal deficits, t one is normal in all 4 extremities. PSYCHIATRIC: Slightly drowsy and oriented -1. Appropriate affect. Intact judgment and insight. Results - Laboratory Findings CBC and BMP: 06/26/20 06:13 06/26/20 11:28 PT/INR, D-dimer PT 17.6 sec (9.0-12.0) H 06/26/20 06:13 INR 1.8 (<1.2) H 06/26/20 06:13 Abnormal lab findings: Abnormal Labs 06/22/20 06/22/20 06/22/20 02:56 02:56 02:56 WBC 15.4 H RBC Hgb Hct MCHC Neutrophils # 14.4 H Lymphocytes # 0.2 L PT 47.9 H INR 4.8 H APTT 49.4 H Chloride 108 H BUN 25 H Creatinine Est GFR (CKD-EPI)AfAm Est GFR (CKD-EPI)NonAf BUN/Creatinine Ratio Glucose POC Glucose (mg/dL) Calcium Iron TIBC % Saturation Ferritin AST Total Protein 5.6 L Albumin 3.1 L Lipase 21 L Ur Specific Pep Urine Protein Urine Ketones Urine Blood Ur Leukocyte Esterase Urine RBC Urine WBC Urine Bacteria Urine Mucus 06/22/20 06/23/20 06/23/20 04:59 07:12 07:12 WBC 14.8 H RBC 4.19 L Hgb 12.0 L Hct 38.0 L MCHC Neutrophils # 13.7 H Lymphocytes # 0.4 L PT 50.8 H INR 5.05 H* APTT Chloride BUN Creatinine Est GFR (CKD-EPI)AfAm Est GFR (CKD-EPI)NonAf BUN/Creatinine Ratio Glucose POC Glucose (mg/dL) Calcium Iron TIBC % Saturation Ferritin AST Total Protein Albumin Lipase Ur Specific Pep >1.050 H Urine Protein 1+ H Urine Ketones 1+ H Urine Blood Ur Leukocyte Esterase Urine RBC Urine WBC Urine Bacteria Urine Mucus Moderate H 06/23/20 06/24/20 06/24/20 07:12 05:57 05:57 WBC 15.7 H RBC Hgb 12.1 L Hct MCHC Neutrophils # Lymphocytes # PT 13.3 H INR 1.3 H APTT Chloride BUN 41.0 H Creatinine 1.6 H Est GFR (CKD-EPI)AfAm 45.8 L Est GFR (CKD-EPI)NonAf 39.5 L BUN/Creatinine Ratio 25.63 H Glucose POC Glucose (mg/dL) Calcium 8.2 L Iron TIBC % Saturation Ferritin AST 13 L Total Protein 4.3 L Albumin 2.70 L Lipase Ur Specific Pep Urine Protein Urine Ketones Urine Blood Ur Leukocyte Esterase Urine RBC Urine WBC Urine Bacteria Urine Mucus 06/24/20 06/25/20 06/25/20 05:57 05:24 05:24 WBC 13.9 H RBC Hgb 11.9 L Hct MCHC 30.5 L Neutrophils # 12.7 H Lymphocytes # 0.3 L PT 14.2 H INR 1.4 H APTT Chloride BUN 51.0 H Creatinine 1.7 H Est GFR (CKD-EPI)AfAm 42.6 L Est GFR (CKD-EPI)NonAf 36.7 L BUN/Creatinine Ratio 30.00 H Glucose POC Glucose (mg/dL) Calcium 8.6 L Iron TIBC % Saturation Ferritin AST Total Protein Albumin Lipase Ur Specific Pep Urine Protein Urine Ketones Urine Blood Ur Leukocyte Esterase Urine RBC Urine WBC Urine Bacteria Urine Mucus 06/25/20 06/25/20 06/25/20 05:24 21:17 22:27 WBC RBC Hgb Hct MCHC Neutrophils # Lymphocytes # PT INR APTT Chloride 109 H BUN 54.0 H 46 H Creatinine Est GFR (CKD-EPI)AfAm 53.8 L Est GFR (CKD-EPI)NonAf 46.5 L BUN/Creatinine Ratio 38.57 H Glucose 128 H POC Glucose (mg/dL) 113 H Calcium 8.5 L Iron TIBC % Saturation Ferritin AST Total Protein 4.9 L Albumin 2.4 L Lipase Ur Specific Pep Urine Protein Urine Ketones Urine Blood Ur Leukocyte Esterase Urine RBC Urine WBC Urine Bacteria Urine Mucus 06/25/20 06/25/20 06/25/20 22:27 22:27 23:43 WBC 15.2 H RBC Hgb Hct MCHC 30.9 L Neutrophils # 14.4 H Lymphocytes # 0.3 L PT 16.4 H INR 1.7 H APTT 34.5 H Chloride BUN Creatinine Est GFR (CKD-EPI)AfAm Est GFR (CKD-EPI)NonAf BUN/Creatinine Ratio Glucose POC Glucose (mg/dL) Calcium Iron TIBC % Saturation Ferritin AST Total Protein Albumin Lipase Ur Specific Pep Urine Protein 1+ H Urine Ketones 1+ H Urine Blood Moderate H Ur Leukocyte Esterase Small H Urine RBC 85 H Urine WBC 9 H Urine Bacteria Rare H Urine Mucus Rare H 06/25/20 06/26/20 06/26/20 23:48 06:13 06:13 WBC 14.9 H RBC Hgb 12.9 L Hct MCHC 29.7 L Neutrophils # 13.8 H Lymphocytes # 0.4 L PT INR APTT Chloride 112 H BUN 46 H Creatinine Est GFR (CKD-EPI)AfAm Est GFR (CKD-EPI)NonAf BUN/Creatinine Ratio Glucose 114 H POC Glucose (mg/dL) 139 H Calcium Iron 8 L TIBC 227 L % Saturation 3.52 L Ferritin 471.3 H AST Total Protein Albumin Lipase Ur Specific Pep Urine Protein Urine Ketones Urine Blood Ur Leukocyte Esterase Urine RBC Urine WBC Urine Bacteria Urine Mucus 06/26/20 06/26/20 06/26/20 06:13 06:15 11:28 WBC RBC Hgb Hct MCHC Neutrophils # Lymphocytes # PT 17.6 H INR 1.8 H APTT Chloride 113 H BUN 46 H Creatinine 1.26 H Est GFR (CKD-EPI)AfAm Est GFR (CKD-EPI)NonAf BUN/Creatinine Ratio Glucose 108 H POC Glucose (mg/dL) 103 H Calcium Iron TIBC % Saturation Ferritin AST Total Protein 4.6 L Albumin 2.2 L Lipase Ur Specific Pep Urine Protein Urine Ketones Urine Blood Ur Leukocyte Esterase Urine RBC Urine WBC Urine Bacteria Urine Mucus 06/26/20 11:46 WBC RBC Hgb Hct MCHC Neutrophils # Lymphocytes # PT INR APTT Chloride BUN Creatinine Est GFR (CKD-EPI)AfAm Est GFR (CKD-EPI)NonAf BUN/Creatinine Ratio Glucose POC Glucose (mg/dL) 102 H Calcium Iron TIBC % Saturation Ferritin AST Total Protein Albumin Lipase Ur Specific Pep Urine Protein Urine Ketones Urine Blood Ur Leukocyte Esterase Urine RBC Urine WBC Urine Bacteria Urine Mucus - Diagnostic Findings Chest x-ray: report reviewed, image reviewed Additional studies: CT of the abdomen and pelvis reviewed, echocardiogram results reviewed Assessment and Plan Plan: Assessment: #1. Acute hypoxic respiratory failure due to postoperative hypoventilation, there is a possibility of right diaphragmatic paralysis as evident on the chest x-ray, improving, continue with pulmonary toileting, FiO2 is currently down to 2 L from 8 L per high flow in the immediate postoperative period #2. Perforated sigmoid diverticulitis, with pneumoperitoneum, incarcerated left inguinal hernia, status post exploratory laparotomy with sigmoid resection, descending colostomy creation with rectal stump, reduction and repair of incarce rated left inguinal hernia, Luke's procedure, drainage of sigmoid diverticular abscess, drainage of left inguinal canal abscess and peritoneal lavage, postoperative day number 1. There was a placement of intra-abdominal drain along the pelvis, and placement of wound VAC in the abdominal wall #3. Acute intra-abdominal sepsis related to the above, on Zosyn and Flagyl for antibiotic coverage #4. Acute kidney injury related to acute sepsis, ATN, renal function is improving, and nephrology is on the case #5. A. fib with RVR, the rate is currently better controlled, remains off anticoagulation other than prophylactic doses of heparin #6. Hypertension, history of #7. History of prostate cancer, history of surgical resection followed by radiation #8. Osteoarthritis Plan: Maintain pain control, encourage deep breathing and coughing, today's chest x- ray has been reviewed showing hypo-ventilatory changes, with possible crowding of the bony markings, and there is a possibility of right hemidiaphragm paralysis. No acute respiratory distress, continue weaning FiO2, maintain aspi ration precautions, continue antibiotics, no fever or chills, hemodynamically patient is stable, renal profile is improving, he will be started on TPN for nutritional support. Continue GI and DVT prophylaxis, echocardiogram has been reviewed. The rate is currently controlled. Cardiology is following. No acute events overnight. Continue to closely follow in the ICU I performed a history & physical examination of the patient and discussed their management with my nurse practitioner, Vilma Johnson. I reviewed the nurse practitioner's note and agree with the documented findings and plan of care. Lung sounds are positive for diminished breath. The findings and the impression was discussed with the patient. I attest to the documentation by the nurse practitioner. Time with Patient: Greater than 30
[2020-06-26] MEDS ORDERED: MVI, ADULT NO.4 WITH VIT K 10 ML, TRACE (CONC-1ML/DOSE) 1 ML, PARENTERAL ELECTROLYTES 2... IV ONE ×4 (14:00)
[2020-06-26] MEDS: FAT EMULSION 20% 250 ML IV SCH (14:45)
--- NOTE | 2020-06-26 15:24 | P.PN ---
<HarryJacquie goldberg - Last Filed: 06/26/20 15:13> Subjective Progress Note Date: 06/26/20 CHIEF COMPLAINT: Abdominal pain HISTORY OF PRESENT ILLNESS: Patient's pain followed for acute diverticulitis with perforation. Over the weekend he was having abdominal pain had an abdominal x-ray completed showing interval development of extensive pneumoperitoneum. Patient was taken to the OR. He is postop day #1. He is now currently in the ICU. He had hypoxic respiratory failure, mental status changes and A. fib with rapid ventricular response. Patient has been up at bedside chair. He is currently back in bed. His pain is controlled. Denies any nausea or vomiting. He is afebrile. White count 14.9. INR 1.8. PHYSICAL EXAM: VITAL SIGNS: Reviewed GENERAL: Well-developed in no acute distress. HEENT: No sclera icterus. Extraocular movements grossly intact. Moist buccal mucosa. Head is atraumatic, normocephalic. Hears conversational speech. No nasal drainage. NECK: Supple without lymphadenopathy. CHEST: Non-labored respirations and equal bilateral excursions. CARDIOVASCULAR: Palpable 2+ radial pulses. ABDOMEN: Soft. Distended. Dressing clean dry and intact. Colostomy with serosanguineous drainage MUSCULOSKELETAL: No clubbing or cyanosis. NEUROLOGIC: No focal or lateralizing signs. Cranial nerves II through XII grossly intact. PSYCH: Appropriate affect. Alert and oriented to person, place and time. SKIN: Well perfused. Good skin turgor. ASSESSMENT: 1. Pneumoperitoneum status post exploratory laparotomy with sigmoid resection for perforated sigmoid diverticulitis, descending colostomy creation with rectal stump, reduction and repair of incarcerated left inguinal hernia, Iwona's procedure for perforated sigmoid diverticulitis, drainage of sigmoid diverticular abscess, drainage of left inguinal canal, abscess, placement of intraabdominal #19 Prince drain along the pelvis and placement of universal incisional PREVENA wound VAC system 2. Acute sigmoid diverticulitis, perforated sigmoid diverticulitis 3. Incarcerated left inguinal hernia 4. Sepsis with mental status changes, new 5. Leukocytosis 6. Atrial fibrillation 7. Chronic Coumadin therapy 8. Hypertensive heart disease 9. History of prostate cancer 10. Status post pelvic radiation for prostate cancer 11. Pelvic diverticular abscess, left lower quadrant PLAN: -Continue antibiotics -Continue ICU management -Continue TPN for nutritional support -Continue pain medications for pain control Physician Cardiopulmonary Technician note has been reviewed by physician. Signing provider agrees with the documented findings, assessment, and plan of care. Objective - Vital Signs Vital signs: Vital Signs Temp 98.1 F 06/26/20 12:00 Pulse 95 06/26/20 14:00 Resp 16 06/26/20 14:00 BP 147/105 06/26/20 14:00 Pulse Ox 97 06/26/20 14:00 Intake & Output 06/25/20 06/26/20 06/26/20 18:59 06:59 18:59 Intake Total 3100 3300 900 Output Total 875 295 Balance 3100 2425 605 Weight 93.2 kg 93.2 kg Intake: IV 3100 3300 900 ACETAMINOPHEN IV (For NPO 100 ) 1,000 mg In Empty Bag 1 bag @ 400 mls/hr IVPB ONCE ONE Rx#:[id number] Piperacillin-Tazobactam 3 100 .375 gm In Sodium Chloride 0.9% 100 ml @ 25 mls/hr IVPB Q8HR [facility] Rx# :[id number] Sodium Chloride 0.9% 1, 1900 700 000 ml @ 100 mls/hr IV . Q10H [facility] Rx#:[id number] Sodium Chloride 0.9% 500 1100 ml 500 ml @ 1000 mls/hr IV Q35M [facility] Rx#:[id number] metroNIDAZOLE-NS PMX 500 100 mg In Saline 1 100ml.bag @ 100 mls/hr IVPB Q6HR [facility] Rx#:[id number] Oral 0 Output: Drainage 80 Abdomen 80 Urine 745 295 Estimated Blood Loss 50 Other: Voiding Method Indwelling Catheter Indwelling Catheter # Voids 3 - Labs CBC & Chem 7: 06/26/20 06:13 06/26/20 11:28 Labs: Abnormal Lab Results - Last 24 Hours (Table) 06/25/20 06/25/20 06/25/20 Range/Units 21:17 22:27 22:27 WBC 15.2 H (3.8-10.6) k/uL Hgb (13.0-17.5) gm/dL MCHC 30.9 L (31.0-37.0) g/dL Neutrophils # 14.4 H (1.3-7.7) k/uL Lymphocytes # 0.3 L (1.0-4.8) k/uL PT (9.0-12.0) sec INR (<1.2) APTT (22.0-30.0) sec Chloride 109 H (98-107) mmol/L BUN 46 H (9-20) mg/dL Creatinine (0.66-1.25) mg/dL Glucose 128 H (74-99) mg/dL POC Glucose (mg/dL) 113 H (75-99) mg/dL Iron (65-175) ug/dL TIBC (228-460) ug/dL % Saturation (15.00-50.00) Ferritin (22.0-322.0) ng/mL Total Protein 4.9 L (6.3-8.2) g/dL Albumin 2.4 L (3.5-5.0) g/dL Urine Protein (Negative) Urine Ketones (Negative) Urine Blood (Negative) Ur Leukocyte Esterase (Negative) Urine RBC (0-5) /hpf Urine WBC (0-5) /hpf Urine Bacteria (None) /hpf Urine Mucus (None) /hpf 06/25/20 06/25/20 06/25/20 Range/Units 22:27 23:43 23:48 WBC (3.8-10.6) k/uL Hgb (13.0-17.5) gm/dL MCHC (31.0-37.0) g/dL Neutrophils # (1.3-7.7) k/uL Lymphocytes # (1.0-4.8) k/uL PT 16.4 H (9.0-12.0) sec INR 1.7 H (<1.2) APTT 34.5 H (22.0-30.0) sec Chloride (98-107) mmol/L BUN (9-20) mg/dL Creatinine (0.66-1.25) mg/dL Glucose (74-99) mg/dL POC Glucose (mg/dL) 139 H (75-99) mg/dL Iron (65-175) ug/dL TIBC (228-460) ug/dL % Saturation (15.00-50.00) Ferritin (22.0-322.0) ng/mL Total Protein (6.3-8.2) g/dL Albumin (3.5-5.0) g/dL Urine Protein 1+ H (Negative) Urine Ketones 1+ H (Negative) Urine Blood Moderate H (Negative) Ur Leukocyte Esterase Small H (Negative) Urine RBC 85 H (0-5) /hpf Urine WBC 9 H (0-5) /hpf Urine Bacteria Rare H (None) /hpf Urine Mucus Rare H (None) /hpf 06/26/20 06/26/20 06/26/20 Range/Units 06:13 06:13 06:13 WBC 14.9 H (3.8-10.6) k/uL Hgb 12.9 L (13.0-17.5) gm/dL MCHC 29.7 L (31.0-37.0) g/dL Neutrophils # 13.8 H (1.3-7.7) k/uL Lymphocytes # 0.4 L (1.0-4.8) k/uL PT 17.6 H (9.0-12.0) sec INR 1.8 H (<1.2) APTT (22.0-30.0) sec Chloride 112 H (98-107) mmol/L BUN 46 H (9-20) mg/dL Creatinine (0.66-1.25) mg/dL Glucose 114 H (74-99) mg/dL POC Glucose (mg/dL) (75-99) mg/dL Iron 8 L (65-175) ug/dL TIBC 227 L (228-460) ug/dL % Saturation 3.52 L (15.00-50.00) Ferritin 471.3 H (22.0-322.0) ng/mL Total Protein (6.3-8.2) g/dL Albumin (3.5-5.0) g/dL Urine Protein (Negative) Urine Ketones (Negative) Urine Blood (Negative) Ur Leukocyte Esterase (Negative) Urine RBC (0-5) /hpf Urine WBC (0-5) /hpf Urine Bacteria (None) /hpf Urine Mucus (None) /hpf 06/26/20 06/26/20 06/26/20 Range/Units 06:15 11:28 11:46 WBC (3.8-10.6) k/uL Hgb (13.0-17.5) gm/dL MCHC (31.0-37.0) g/dL Neutrophils # (1.3-7.7) k/uL Lymphocytes # (1.0-4.8) k/uL PT (9.0-12.0) sec INR (<1.2) APTT (22.0-30.0) sec Chloride 113 H (98-107) mmol/L BUN 46 H (9-20) mg/dL Creatinine 1.26 H (0.66-1.25) mg/dL Glucose 108 H (74-99) mg/dL POC Glucose (mg/dL) 103 H 102 H (75-99) mg/dL Iron (65-175) ug/dL TIBC (228-460) ug/dL % Saturation (15.00-50.00) Ferritin (22.0-322.0) ng/mL Total Protein 4.6 L (6.3-8.2) g/dL Albumin 2.2 L (3.5-5.0) g/dL Urine Protein (Negative) Urine Ketones (Negative) Urine Blood (Negative) Ur Leukocyte Esterase (Negative) Urine RBC (0-5) /hpf Urine WBC (0-5) /hpf Urine Bacteria (None) /hpf Urine Mucus (None) /hpf Microbiology - Last 24 Hours (Table) 06/25/20 19:42 Gram Stain - Preliminary Other - Other Wound Culture - Preliminary 06/25/20 19:42 Anaerobic Culture - Preliminary Other - Other <Tosha Lau - Last Filed: 06/26/20 18:11> Subjective Patient seen and evaluated. Please see additional documentation. No nausea. He is tolerating ice chips. Per nurse, he is doing very well. He is less confused from this morning. He had his PICC line and pending TPN. He is currently in the ICU for observation due to high risk cardiac pulmonary status. Agreeable with transfer to floor when stable. Monitor creatinine and atrial fibrillation including WBC. Objective - Vital Signs Vital signs: Vital Signs Temp 97.7 F 06/26/20 16:00 Pulse 97 06/26/20 17:00 Resp 14 06/26/20 17:00 BP 149/109 06/26/20 17:00 Pulse Ox 96 06/26/20 17:00 Intake & Output 06/25/20 06/26/20 06/26/20 18:59 06:59 18:59 Intake Total 3100 3300 1450 Output Total 875 420 Balance 3100 2425 1030 Weight 93.2 kg 93.2 kg Intake: IV 3100 3300 1450 ACETAMINOPHEN IV (For NPO 100 ) 1,000 mg In Empty Bag 1 bag @ 400 mls/hr IVPB ONCE ONE Rx#:[id number] Fat Emulsion 20% 250 ml @ 60 20.833 mls/hr IV DAILY@ 1400 [facility] Rx#:[id number] Mvi, Adult No.4 with Vit 90 K 10 ml Trace (Conc-1Ml/ Dose) 1 ml Parenteral Electrolytes 20 ml In Amino Acid 5%-D15w 1,000 ml @ 30 mls/hr IV .Q24H ONE Rx#:[id number] Piperacillin-Tazobactam 3 100 .375 gm In Sodium Chloride 0.9% 100 ml @ 25 mls/hr IVPB Q8HR [facility] Rx# :[id number] Sodium Chloride 0.9% 1, 1900 1100 000 ml @ 100 mls/hr IV . Q10H [facility] Rx#:[id number] Sodium Chloride 0.9% 500 1100 ml 500 ml @ 1000 mls/hr IV Q35M [facility] Rx#:[id number] metroNIDAZOLE-NS PMX 500 100 mg In Saline 1 100ml.bag @ 100 mls/hr IVPB Q6HR [facility] Rx#:[id number] Oral 0 Output: Drainage 80 Abdomen 80 Urine 745 420 Estimated Blood Loss 50 Other: Voiding Method Indwelling Catheter Indwelling Catheter # Voids 3 - Labs CBC & Chem 7: 06/26/20 06:13 06/26/20 11:28 Labs: Abnormal Lab Results - Last 24 Hours (Table) 06/25/20 06/25/20 06/25/20 Range/Units 21:17 22:27 22:27 WBC 15.2 H (3.8-10.6) k/uL Hgb (13.0-17.5) gm/dL MCHC 30.9 L (31.0-37.0) g/dL Neutrophils # 14.4 H (1.3-7.7) k/uL Lymphocytes # 0.3 L (1.0-4.8) k/uL PT (9.0-12.0) sec INR (<1.2) APTT (22.0-30.0) sec Chloride 109 H (98-107) mmol/L BUN 46 H (9-20) mg/dL Creatinine (0.66-1.25) mg/dL Glucose 128 H (74-99) mg/dL POC Glucose (mg/dL) 113 H (75-99) mg/dL Iron (65-175) ug/dL TIBC (228-460) ug/dL % Saturation (15.00-50.00) Ferritin (22.0-322.0) ng/mL Total Protein 4.9 L (6.3-8.2) g/dL Albumin 2.4 L (3.5-5.0) g/dL Urine Protein (Negative) Urine Ketones (Negative) Urine Blood (Negative) Ur Leukocyte Esterase (Negative) Urine RBC (0-5) /hpf Urine WBC (0-5) /hpf Urine Bacteria (None) /hpf Urine Mucus (None) /hpf 06/25/20 06/25/20 06/25/20 Range/Units 22:27 23:43 23:48 WBC (3.8-10.6) k/uL Hgb (13.0-17.5) gm/dL MCHC (31.0-37.0) g/dL Neutrophils # (1.3-7.7) k/uL Lymphocytes # (1.0-4.8) k/uL PT 16.4 H (9.0-12.0) sec INR 1.7 H (<1.2) APTT 34.5 H (22.0-30.0) sec Chloride (98-107) mmol/L BUN (9-20) mg/dL Creatinine (0.66-1.25) mg/dL Glucose (74-99) mg/dL POC Glucose (mg/dL) 139 H (75-99) mg/dL Iron (65-175) ug/dL TIBC (228-460) ug/dL % Saturation (15.00-50.00) Ferritin (22.0-322.0) ng/mL Total Protein (6.3-8.2) g/dL Albumin (3.5-5.0) g/dL Urine Protein 1+ H (Negative) Urine Ketones 1+ H (Negative) Urine Blood Moderate H (Negative) Ur Leukocyte Esterase Small H (Negative) Urine RBC 85 H (0-5) /hpf Urine WBC 9 H (0-5) /hpf Urine Bacteria Rare H (None) /hpf Urine Mucus Rare H (None) /hpf 06/26/20 06/26/20 06/26/20 Range/Units 06:13 06:13 06:13 WBC 14.9 H (3.8-10.6) k/uL Hgb 12.9 L (13.0-17.5) gm/dL MCHC 29.7 L (31.0-37.0) g/dL Neutrophils # 13.8 H (1.3-7.7) k/uL Lymphocytes # 0.4 L (1.0-4.8) k/uL PT 17.6 H (9.0-12.0) sec INR 1.8 H (<1.2) APTT (22.0-30.0) sec Chloride 112 H (98-107) mmol/L BUN 46 H (9-20) mg/dL Creatinine (0.66-1.25) mg/dL Glucose 114 H (74-99) mg/dL POC Glucose (mg/dL) (75-99) mg/dL Iron 8 L (65-175) ug/dL TIBC 227 L (228-460) ug/dL % Saturation 3.52 L (15.00-50.00) Ferritin 471.3 H (22.0-322.0) ng/mL Total Protein (6.3-8.2) g/dL Albumin (3.5-5.0) g/dL Urine Protein (Negative) Urine Ketones (Negative) Urine Blood (Negative) Ur Leukocyte Esterase (Negative) Urine RBC (0-5) /hpf Urine WBC (0-5) /hpf Urine Bacteria (None) /hpf Urine Mucus (None) /hpf 06/26/20 06/26/20 06/26/20 Range/Units 06:15 11:28 11:46 WBC (3.8-10.6) k/uL Hgb (13.0-17.5) gm/dL MCHC (31.0-37.0) g/dL Neutrophils # (1.3-7.7) k/uL Lymphocytes # (1.0-4.8) k/uL PT (9.0-12.0) sec INR (<1.2) APTT (22.0-30.0) sec Chloride 113 H (98-107) mmol/L BUN 46 H (9-20) mg/dL Creatinine 1.26 H (0.66-1.25) mg/dL Glucose 108 H (74-99) mg/dL POC Glucose (mg/dL) 103 H 102 H (75-99) mg/dL Iron (65-175) ug/dL TIBC (228-460) ug/dL % Saturation (15.00-50.00) Ferritin (22.0-322.0) ng/mL Total Protein 4.6 L (6.3-8.2) g/dL Albumin 2.2 L (3.5-5.0) g/dL Urine Protein (Negative) Urine Ketones (Negative) Urine Blood (Negative) Ur Leukocyte Esterase (Negative) Urine RBC (0-5) /hpf Urine WBC (0-5) /hpf Urine Bacteria (None) /hpf Urine Mucus (None) /hpf Microbiology - Last 24 Hours (Table) 06/25/20 19:42 Gram Stain - Preliminary Other - Other Wound Culture - Preliminary 06/25/20 19:42 Anaerobic Culture - Preliminary Other - Other Assessment and Plan (1) Sigmoid diverticulitis Current Visit: Yes Status: Acute Code(s): K57.32 - DVTRCLI OF LG INT W/O PERFORATION OR ABSCESS W/O BLEEDING SNOMED Code(s): 287562502 (2) Prostate cancer Current Visit: Yes Status: Acute Code(s): C61 - MALIGNANT NEOPLASM OF PROSTATE SNOMED Code(s): 161921195 (3) Atrial fibrillation Current Visit: Yes Status: Acute Code(s): I48.91 - UNSPECIFIED ATRIAL FIBRILLATION SNOMED Code(s): 93782718 (4) Anticoagulated on Coumadin Current Visit: Yes Status: Acute Code(s): Z79.01 - SKILLED NURSING (CURRENT) USE OF ANTICOAGULANTS SNOMED Code(s): 56736897 (5) Pneumoperitoneum Current Visit: Yes Status: Acute Code(s): K66.8 - OTHER SPECIFIED DISORDERS OF PERITONEUM SNOMED Code(s): 67396544
--- NOTE | 2020-06-26 15:32 | CDI ---
Documentation Clarification Form Date: 06/26/2020 CDS: Dottie Webb, CCS, CCDS Admit Date: 06/22/2020 Patient Name: Christofer Hampton Discharge Date: ATTENTION: The Clinical Documentation Specialists (CDI) and [facility] Coding Staff appreciate your assistance in clarifying documentation. Please respond to the clarification below the line at the bottom and electronically sign. The CDI & [facility] Coding staff will review the response and follow-up if needed. Please note: Queries are made part of the Legal Health Record. If you have any questions, please contact the author of this message via ITS. Dear Dr. Vickey Boo: Per the 06/26 Pulmonary/Critical Care Consult the following is documented: "Acute hypoxic respiratory failure due to postoperative hypoventilation, there is a possibility of right diaphragmatic paralysis as evident on the chest x-ray, improving, continue with pulmonary toileting, FiO2 is currently down to 2L from 8L per high flow in the immediate postoperative period." Patients Admitting Diagnosis: Perforated sigmoid diverticulitis with pneumoperitoneum, left ing hernia & sigmoid abscess. Post-Operative Diagnosis: Same. Procedure performed: Exploratory Laparotomy with Sigmoid Resection, Descending Colostomy creation with Rectal Stump, Reduction & Repair of Incarcerated Left Inguinal Hernia, Luke's procedure, Drainage of Sigmoid Diverticular Abscess, Drainage of left Inguinal Canal Abscess & Peritoneal Lavage. History/Risk Factors: Longstanding persistent Atrial Fibrillation, Hypertensive Heart Disease without Failure, History of Prostate Cancer status post surgery & Radiation Clinical Indicators: Presented to the ED on 06/22 with abdominal pain & constipation. Diagnosed with diverticulitis as above. Admission VS 06/22: T 98.7, P 114^, R 19, BP 109/72, PO 95 RA Postop VS 06/25: T 97.9, P 96-101^, R 14-16, BP 118/84, PO 90 8L - 4Lnc. Treatment: Admit to ICU postoperatively, extubated <24 hrs postop. IV Dilaudid, IV Cefazolin, IV fluids, O2 as above. TPN started 06/26. In order to accurately reflect this patients severity of illness, please clarify if the Acute Hypoxic Respiratory Failure: Is a complication of surgical procedure Is an expected outcome of the surgical procedure Is related to co-morbid condition(s), please specify: Other please specify: Unable to determine (Last Revision: November 2019) MTDD
--- NOTE | 2020-06-26 15:53 | IR ---
PICC LINE PLACEMENT: HISTORY: TPN therapy PROCEDURE: Ultrasound guidance of PICC line placement. GIANT TIRE REPAIRER: Dr. Espinosa. COMPLICATIONS: None ANESTHESIA: 1. 1% Lidocaine locally. FINDINGS/TECHNIQUE: The procedure was explained to the patient. The risks, complications, benefits and alternatives were discussed and any questions were answered. Informed consent was obtained. The patient was placed supine on the fluoroscopic table and prepped and draped in the usual sterile fash ion. Utilizing a 21 gauge needle and sonographic guidance, access in the right basilic vein was ach ieved and there is placement of a 0.018 guidewire. The vein is patent. A 5-F. sheath was placed ove r the guidewire. The guidewire and dilator were removed and a 5-F. Double lumen PICC line was placed through the sheath with the chest x-ray confirming the tip at the level of the SVC. The sheath was removed, the catheter was flushed and sutured into position. The patient was stable throughout the p rocedure and remained stable upon discharge from the Department of Radiology. The vein puncture was patent under ultrasound. A lerma scale image was obtained to document patency of the vein punctured. All elements of the maximal barrier technique were utilized. IMPRESSION: 1. Successful PICC line placement under ultrasound performed bedside within the ICU.
--- NOTE | 2020-06-26 16:01 | PN ---
PROGRESS NOTE DATE OF SERVICE: 06/26/2020 REASON FOR FOLLOWUP: Secondary peritonitis from perforated diverticulitis. INTERVAL HISTORY: Patient was taken to the OR yesterday in this patient who is status post laparotomy and diverting colostomy. The patient tolerated the procedure, currently in the ICU. Patient denies having any chest pain, no shortness of breath. Cough and abdominal pain is currently controlled. No nausea, no vomiting. No output in the colostomy bag. PHYSICAL EXAMINATION: Blood pressure 147/100 with a pulse of 95, temperature 98.1. He is 96% on 2 L nasal cannula. General description is an elderly male, up in the bed in no distress. RESPIRATORY SYSTEM: Unlabored breathing, clear to auscultation anteriorly. HEART: S1, S2. Regular rate and rhythm. ABDOMEN: Soft. No tenderness. He has intact some serous fluid in the DEJON drainage. EXTREMITIES: No edema of the feet. LABS: Hemoglobin is 10.1, white count 14.9, creatinine 1.26. Abdominal culture is pending. DIAGNOSTIC IMPRESSION AND PLAN: Patient with secondary peritonitis from a perforated sigmoid diverticulitis, status post laparotomy and diverting colostomy. Patient is currently covered with Zosyn to continue while waiting for the culture to finalize and will monitor clinical course closely. MMODL / IJN: [id number] /
[2020-06-26] MEDS: amLODIPine 10 MG TAB PO SCH (18:14)
[2020-06-26 19:02] LABS: Glucose,Whole Blood 128 mg/dL (75-99)
[2020-06-26] MEDS ORDERED: METOPROLOL TARTRATE 25 MG TAB PO SCH (21:00)
[2020-06-26] MEDS: traZODone HCL 50 MG TAB PO SCH ×2 (21:00→21:03)
--- NOTE | 2020-06-26 23:04 | P.PN ---
Progress Note - Text Progress Note Date: 06/26/20 Chief Complaint: Abdominal pain History of presenting complaint: This is a very pleasant 80-year-old patient of Dr. Joel. Chronic stable medical conditions include paroxysmal atrial fibrillation on Coumadin, hypertension, prostate cancer treated by surgery and followed by radiation treatment a year later, back surgery. The last 2 or 3 days patient with having increasing lower abdominal pain started off with nausea after he presented today also vomited couple of times. Denied any fever and chills. Patient baseline normally has 2 or 3 bowel movements a day. Last bowel movement was 2 days ago. Abdomen felt distended. Computed tomography scan of the abdomen that showed extensive sigmoid diverticulosis with asymmetry with a segment of diverticulitis and some fat and fluid containing left inguinal hernia and few fluid-filled loops of distal ileum. Admitted with acute sigmoid diverticular to severe, with ileus. Coumadin toxicity for which received vitamin K.on June 25 evening patient was taken to the OR by Dr. Kwok. Found to have a perforated sigmoid diverticulitis with stool and pus in the abdomen.patient underwent sigmoid resection followed by colostomy creation and repair of incarcerated left inguinal hernia/Luke's procedure. Pericardial large. Drain was placed. An incisional wound VAC was placed. Today-in the ICU. Laying in bed. Getting IV fluids. TPN and lipids. Pain control. Sinus rhythm. Review of systems: Was done for constitutional, cardiovascular, GI, pulmonary. relevant finding as above Active Medications Amlodipine Besylate (Amlodipine 10 Mg Tab) 10 mg PO DAILY [facility] Last Admin: 06/26/20 18:14 Dose: 10 mg Documented by: Heparin Sodium (Porcine) (Heparin Sodium,Porcine 5,000 Unit/Ml 1 Ml Vial) 5,000 unit SQ Q12HR [facility] Last Admin: 06/26/20 20:07 Dose: 5,000 unit Documented by: Hydromorphone HCl (Hydromorphone 1 Mg/Ml 1 Ml Syringe) 1 mg IVP Q2HR PRN PRN Reason: SEVERE PAIN Piperacillin Sod/Tazobactam (Sod 3.375 gm/ Sodium Chloride) 100 mls @ 25 mls/hr IVPB Q8HR [facility] Last Admin: 06/26/20 17:15 Dose: 25 mls/hr Documented by: Metronidazole 500 mg/ IV (Solution) 100 mls @ 100 mls/hr IVPB Q6HR [facility] Last Admin: 06/26/20 17:17 Dose: 100 mls/hr Documented by: Sodium Chloride (Saline 0.9%) 1,000 mls @ 100 mls/hr IV .Q10H [facility] Last Admin: 06/26/20 17:15 Dose: 100 mls/hr Documented by: Parenteral Vitamin Supplement 10 ml/ Chromium/Copper/Manganese/Seleni/Zn 1 ml/Parenteral Electrolytes 20 ml/Amino Acids/Dextrose 1,031 mls @ 30 mls/hr IV .Q24H ONE Stop: 06/27/20 13:59 Last Admin: 06/26/20 14:31 Dose: 30 mls/hr Documented by: Parenteral Vitamin Supplement 10 ml/ Chromium/Copper/Manganese/Seleni/Zn 1 ml/Parenteral Electrolytes 20 ml/Amino Acids/Dextrose 1,031 mls @ 95 mls/hr IV .BY DURATION [facility] Parenteral Electrolytes 20 ml/ (Amino Acids/Dextrose) 1,020 mls @ 95 mls/hr IV .BY DURATION [facility] Fat Emulsion Intravenous (Lipids 20%) 250 mls @ 20.833 mls/hr IV DAILY@1400 [facility] Last Admin: 06/26/20 14:45 Dose: 20.833 mls/hr Documented by: Metoprolol Tartrate (Metoprolol Tartrate 25 Mg Tab) 25 mg PO BID [facility] Last Admin: 06/26/20 20:07 Dose: 25 mg Documented by: Morphine Sulfate (Morphine Sulfate 4 Mg/Ml Syringe) 4 mg IVP Q4HR PRN PRN Reason: MODERATE Pain Last Admin: 06/26/20 20:06 Dose: 4 mg Documented by: Naloxone HCl (Naloxone 0.4 Mg/Ml 1 Ml Vial) 0.2 mg IV Q2M PRN PRN Reason: Opioid Reversal Ondansetron HCl (Ondansetron 4 Mg/2 Ml Vial) 4 mg IVP Q6HR PRN PRN Reason: Nausea And Vomiting Last Admin: 06/24/20 09:52 Dose: 4 mg Documented by: Pantoprazole Sodium (Pantoprazole 40 Mg/10 Ml Vial) 40 mg IVP DAILY [facility] Last Admin: 06/26/20 08:29 Dose: 40 mg Documented by: Prochlorperazine Maleate (Prochlorperazine 10 Mg Tab) 10 mg PO Q6HR PRN PRN Reason: Nausea And Vomiting Trazodone HCl (Trazodone Hcl 50 Mg Tab) 50 mg PO HS [facility] Last Admin: 06/26/20 21:03 Dose: Not Given Documented by: Physical examination: VITAL SIGNS:97.7, 101, 14, 162 x 1 17, 96% on 3 L GENERAL: Laying in bed, tired EYES: Pupils equal. Conjunctiva normal. HEENT: External appearance of nose and ears normal, oral cavity grossly normal. NECK: JVD not raised; masses not palpable. HEART: First and second heart sounds are normal; no edema. LUNGS: Respiratory rate normal; clear to auscultation. ABDOMEN: Soft,tender, DEJON drain, incisional wound VAC, no mass palpable PSYCH: Alert and oriented x3; mood and affect tired INVESTIGATIONS, reviewed in the clinical context: potassium 3.9 creatinine 1.26 albumin 2.2 Previous testing White count 15.4 hemoglobin 13.5 platelets 196 INR 4.8 potassium 3.7 creatinine 1.06 Computed tomography scan of the abdomen pelvis-sigmoid diverticulosis with diverticulitis. No free air. Some air-fluid levels in the distal ileum Abdominal x-ray-06/25/2020 film personally reviewed by me shows free air Assessment: -Acute severe sigmoid diverticulitis-with perforation-leading to sigmoid resection with Iwona's procedure and a colostomy. Patient has DEJON drain -Secondary peritonitis secondary to ruptured viscus, causing sepsis -repair- Incarcerated left inguinal hernia -Acute kidney injury likely from hypotension-worsening -Colonic diverticulosis -Paroxysmal atrial fibrillation chronically on Coumadin -Coumadin monitoring with toxicity-give vitamin K.-Corrected -Prostate cancer with a history of surgery and radiation treatment -Hypoalbuminemia-reactive Plan: -patient getting IV TPN and lipids. IV Flagyl, IV Zosyn. Saline.patient is nothing by mouth except for ice chips and medications. Discussed with the patient.
[2020-06-26 23:50] LABS: Glucose,Whole Blood 160 mg/dL (75-99)
[2020-06-27] MEDS: hydrALAZINE HCL 20 MG/ML 1 ML VIAL IVP PRN ×2 (02:43→20:56)
[2020-06-27] MEDS: SODIUM CHLORIDE 0.9% 1,000 ML IV SCH ×3 (03:57→20:30)
[2020-06-27] MEDS: metroNIDAZOLE-NS PMX 500 MG in SALINE 1 100ML.BAG IVPB SCH ×4 (06:02→23:33)
[2020-06-27 06:03] LABS: Glucose,Whole Blood 130 mg/dL (75-99)
[2020-06-27 07:23] LABS: Ionized Calcium 5.2 mg/dL (4.5-5.3)
[2020-06-27 07:31] LABS: Basophils % (A) 0 %; Calcium 8.3 mg/dL (8.4-10.2); Eosinophils # (A) 0.2 k/uL (0-0.7); Eosinophils % (A) 1 %; HCT 45.3 % (39.0-53.0); HGB 13.6 gm/dL (13.0-17.5); Hypochromasia Slight; Lymphocytes # (A) 0.5 k/uL (1.0-4.8); Lymphocytes % (A) 3 %; MCH 27.4 pg (25.0-35.0); MCHC 30.1 g/dL (31.0-37.0); Magnesium 2.1 mg/dL (1.6-2.3); Mean Platelet Volume 7.8; Monocytes % (A) 7 %; Neutrophils # (A) 11.7 k/uL (1.3-7.7); Neutrophils % (A) 87 %; Phosphorus 2.3 mg/dL (2.5-4.5); Platelet Count 244 k/uL (150-450); Potassium 3.4 mmol/L (3.5-5.1); RBC 4.97 m/uL (4.30-5.90); RDW 14.8 % (11.5-15.5); WBC 13.5 k/uL (3.8-10.6)
[2020-06-27] MEDS ORDERED: Potassium Replacement Protocol 1 EACH MISC MISCELLANE PRN (07:44)
--- NOTE | 2020-06-27 08:09 | P.PN ---
Subjective Progress Note Date: 06/27/20 Principal diagnosis: Long-standing persistent atrial fibrillation This is a pleasant 78-year-old gentleman with history of long-standing persistent atrial fibrillation as well as hypertension who developed sigmoid diverticulitis and pneumoperitoneum and he underwent surgery. We consulted to see the patient for the management of atrial fibrillation and also for preop cardiac assessment before noncardiac surgery. The patient was seen today June [id number]. The patient continues to be in atrial fibrillation with slightly uncontrolled heart rate and also continues to be slightly hypertensive. Because of that I am going to increase the dose of metoprolol. We get the okay from the surgical team regarding starting the patient on oral anticoagulation and we'll go ahead and start the patient on Coumadin which she was on at home. Objective - Vital Signs Vital signs: Vital Signs Temp 97.5 F L 06/27/20 04:00 Pulse 114 H 06/27/20 07:00 Resp 22 06/27/20 07:00 BP 142/108 06/27/20 07:00 Pulse Ox 96 06/27/20 07:00 Intake & Output 06/26/20 06/27/20 06/27/20 18:59 06:59 18:59 Intake Total 1600 2040 130 Output Total 485 882 125 Balance 1115 1158 5 Weight 93.2 kg 95.5 kg Intake: IV 1600 2040 130 Fat Emulsion 20% 250 ml @ 80 180 20.833 mls/hr IV DAILY@ 1400 [facility] Rx#:[id number] Mvi, Adult No.4 with Vit 120 360 30 K 10 ml Trace (Conc-1Ml/ Dose) 1 ml Parenteral Electrolytes 20 ml In Amino Acid 5%-D15w 1,000 ml @ 30 mls/hr IV .Q24H [facility] Rx#:[id number] Piperacillin-Tazobactam 3 100 100 .375 gm In Sodium Chloride 0.9% 100 ml @ 25 mls/hr IVPB Q8HR [facility] Rx# :[id number] Sodium Chloride 0.9% 1, 1200 1200 100 000 ml @ 100 mls/hr IV . Q10H [facility] Rx#:[id number] metroNIDAZOLE-NS PMX 500 100 200 mg In Saline 1 100ml.bag @ 100 mls/hr IVPB Q6HR [facility] Rx#:[id number] Output: Urine 485 882 125 Other: Voiding Method Indwelling Catheter Indwelling Catheter - Constitutional General appearance: Present: no acute distress - Respiratory Respiratory: bilateral: CTA - Cardiovascular Rhythm: irregularly irregular Heart sounds: normal: S1, S2 - Labs CBC & Chem 7: 06/27/20 06:31 06/27/20 06:31 Labs: Abnormal Lab Results - Last 24 Hours (Table) 06/26/20 06/26/20 06/26/20 Range/Units 06:13 11:28 11:46 WBC (3.8-10.6) k/uL MCHC (31.0-37.0) g/dL Neutrophils # (1.3-7.7) k/uL Lymphocytes # (1.0-4.8) k/uL Potassium (3.5-5.1) mmol/L Chloride 113 H (98-107) mmol/L Carbon Dioxide (22-30) mmol/L BUN 46 H (9-20) mg/dL Creatinine 1.26 H (0.66-1.25) mg/dL Glucose 108 H (74-99) mg/dL POC Glucose (mg/dL) 102 H (75-99) mg/dL Calcium (8.4-10.2) mg/dL Phosphorus (2.5-4.5) mg/dL Iron 8 L (65-175) ug/dL TIBC 227 L (228-460) ug/dL % Saturation 3.52 L (15.00-50.00) Ferritin 471.3 H (22.0-322.0) ng/mL Total Protein 4.6 L (6.3-8.2) g/dL Albumin 2.2 L (3.5-5.0) g/dL 06/26/20 06/26/20 06/27/20 Range/Units 18:59 23:49 06:02 WBC (3.8-10.6) k/uL MCHC (31.0-37.0) g/dL Neutrophils # (1.3-7.7) k/uL Lymphocytes # (1.0-4.8) k/uL Potassium (3.5-5.1) mmol/L Chloride (98-107) mmol/L Carbon Dioxide (22-30) mmol/L BUN (9-20) mg/dL Creatinine (0.66-1.25) mg/dL Glucose (74-99) mg/dL POC Glucose (mg/dL) 128 H 160 H 130 H (75-99) mg/dL Calcium (8.4-10.2) mg/dL Phosphorus (2.5-4.5) mg/dL Iron (65-175) ug/dL TIBC (228-460) ug/dL % Saturation (15.00-50.00) Ferritin (22.0-322.0) ng/mL Total Protein (6.3-8.2) g/dL Albumin (3.5-5.0) g/dL 06/27/20 06/27/20 Range/Units 06:31 06:31 WBC 13.5 H (3.8-10.6) k/uL MCHC 30.1 L (31.0-37.0) g/dL Neutrophils # 11.7 H (1.3-7.7) k/uL Lymphocytes # 0.5 L (1.0-4.8) k/uL Potassium 3.4 L (3.5-5.1) mmol/L Chloride 115 H (98-107) mmol/L Carbon Dioxide 21 L (22-30) mmol/L BUN 41 H (9-20) mg/dL Creatinine (0.66-1.25) mg/dL Glucose 136 H (74-99) mg/dL POC Glucose (mg/dL) (75-99) mg/dL Calcium 8.3 L (8.4-10.2) mg/dL Phosphorus 2.3 L (2.5-4.5) mg/dL Iron (65-175) ug/dL TIBC (228-460) ug/dL % Saturation (15.00-50.00) Ferritin (22.0-322.0) ng/mL Total Protein (6.3-8.2) g/dL Albumin (3.5-5.0) g/dL Microbiology - Last 24 Hours (Table) 06/25/20 22:34 Blood Culture - Preliminary Blood No Growth after 24 hours 06/25/20 22:27 Blood Culture - Preliminary Blood No Growth after 24 hours 06/25/20 19:42 Gram Stain - Preliminary Other - Other Wound Culture - Preliminary Assessment and Plan Assessment: Assessment #1 sigmoid diverticulitis and pneumoperitoneum #2 long-standing persistent atrial fibrillation #3 multiple comorbid conditions Plan #1 increase the dose of metoprolol #2 start the patient on oral anticoagulation #3 follow-up with the patient
[2020-06-27] MEDS: POTASSIUM CHLORIDE ER 20 MEQ TAB.ER PO SCH ×2 (08:19→10:41)
[2020-06-27] MEDS: PIPERACILLIN-TAZOBACTAM 3.375 GM in SODIUM CHLORIDE 0.9% 100 ML IVPB SCH ×2 (08:20→16:15)
[2020-06-27] MEDS: amLODIPine 10 MG TAB PO SCH (08:20)
[2020-06-27] MEDS: PANTOPRAZOLE 40 MG/10 ML VIAL IVP SCH (08:20)
[2020-06-27] MEDS: METOPROLOL TARTRATE 50 MG TAB PO SCH ×2 (08:20→20:56)
[2020-06-27] MEDS: ONDANSETRON 4 MG/2 ML VIAL IVP PRN (08:40)
--- NOTE | 2020-06-27 08:54 | XR ---
EXAMINATION TYPE: XR chest 1V portable DATE OF EXAM: 06/27/2020 COMPARISON: 06/26/2020 INDICATION: Wheezing TECHNIQUE: Single frontal view of the chest is obtained. FINDINGS: The heart size is normal. The pulmonary vasculature is normal. Mild streak atelectasis at the left base. Correlate for atelectasis. There is elevation of the right diaphragm. Some minimal blunting the right costophrenic angle may be present suggestive of minimal pl eural effusion PICC line enters on the right with the tip in the distal superior vena cava region. IMPRESSION: 1. Minimal right pleural effusion with elevation of the right diaphragm. 2. Streak atelectasis left lung base. Minimal left costophrenic angle fluid is not excluded.
[2020-06-27 08:58] LABS: INR 2.4 (<1.2)
[2020-06-27] MEDS: HEPARIN SODIUM,PORCINE 5,000 UNIT/ML 1 ML VIAL SQ SCH (09:40)
--- NOTE | 2020-06-27 09:53 | P.PN ---
Subjective patient is seen in follow-up for acute kidney injury. Renal function improving. Currently maintained on IV fluids. underwent exploratory laparotomy with sigmoid resection for perforated sigmoid diverticulitis on June 25. hemodynamically stable. started on PPN June 26. Vital signs are stable. General: The patient appeared well nourished and normally developed. HEENT: Head exam is unremarkable. Neck is without jugular venous distension. LUNGS: Breath sounds decreased. HEART: irregular rate and rhythm. ABDOMEN: surgical abdomen. Mild tenderness. EXTREMITITES: No edema. Objective - Vital Signs Vital signs: Vital Signs Temp 97.9 F 06/27/20 08:00 Pulse 112 H 06/27/20 09:00 Resp 26 H 06/27/20 09:00 BP 158/109 06/27/20 09:00 Pulse Ox 95 06/27/20 09:00 Intake & Output 06/26/20 06/27/20 06/27/20 18:59 06:59 18:59 Intake Total 1600 2040 490 Output Total 485 882 335 Balance 1115 1158 155 Weight 93.2 kg 95.5 kg Intake: IV 1600 2040 490 Fat Emulsion 20% 250 ml @ 80 180 20.833 mls/hr IV DAILY@ 1400 [facility] Rx#:[id number] Mvi, Adult No.4 with Vit 120 360 90 K 10 ml Trace (Conc-1Ml/ Dose) 1 ml Parenteral Electrolytes 20 ml In Amino Acid 5%-D15w 1,000 ml @ 30 mls/hr IV .Q24H [facility] Rx#:[id number] Piperacillin-Tazobactam 3 100 100 100 .375 gm In Sodium Chloride 0.9% 100 ml @ 25 mls/hr IVPB Q8HR [facility] Rx# :[id number] Sodium Chloride 0.9% 1, 1200 1200 300 000 ml @ 100 mls/hr IV . Q10H [facility] Rx#:[id number] metroNIDAZOLE-NS PMX 500 100 200 mg In Saline 1 100ml.bag @ 100 mls/hr IVPB Q6HR [facility] Rx#:[id number] Output: Urine 485 882 335 Other: Voiding Method Indwelling Catheter Indwelling Catheter - Labs CBC & Chem 7: 06/27/20 06:31 06/27/20 06:31 Labs: Abnormal Lab Results - Last 24 Hours (Table) 06/26/20 06/26/20 06/26/20 Range/Units 11:28 11:46 18:59 WBC (3.8-10.6) k/uL MCHC (31.0-37.0) g/dL Neutrophils # (1.3-7.7) k/uL Lymphocytes # (1.0-4.8) k/uL PT (9.0-12.0) sec INR (<1.2) Potassium (3.5-5.1) mmol/L Chloride 113 H (98-107) mmol/L Carbon Dioxide (22-30) mmol/L BUN 46 H (9-20) mg/dL Creatinine 1.26 H (0.66-1.25) mg/dL Glucose 108 H (74-99) mg/dL POC Glucose (mg/dL) 102 H 128 H (75-99) mg/dL Calcium (8.4-10.2) mg/dL Phosphorus (2.5-4.5) mg/dL Total Protein 4.6 L (6.3-8.2) g/dL Albumin 2.2 L (3.5-5.0) g/dL 06/26/20 06/27/20 06/27/20 Range/Units 23:49 06:02 06:31 WBC 13.5 H (3.8-10.6) k/uL MCHC 30.1 L (31.0-37.0) g/dL Neutrophils # 11.7 H (1.3-7.7) k/uL Lymphocytes # 0.5 L (1.0-4.8) k/uL PT (9.0-12.0) sec INR (<1.2) Potassium (3.5-5.1) mmol/L Chloride (98-107) mmol/L Carbon Dioxide (22-30) mmol/L BUN (9-20) mg/dL Creatinine (0.66-1.25) mg/dL Glucose (74-99) mg/dL POC Glucose (mg/dL) 160 H 130 H (75-99) mg/dL Calcium (8.4-10.2) mg/dL Phosphorus (2.5-4.5) mg/dL Total Protein (6.3-8.2) g/dL Albumin (3.5-5.0) g/dL 06/27/20 06/27/20 Range/Units 06:31 08:31 WBC (3.8-10.6) k/uL MCHC (31.0-37.0) g/dL Neutrophils # (1.3-7.7) k/uL Lymphocytes # (1.0-4.8) k/uL PT 23.0 H (9.0-12.0) sec INR 2.4 H (<1.2) Potassium 3.4 L (3.5-5.1) mmol/L Chloride 115 H (98-107) mmol/L Carbon Dioxide 21 L (22-30) mmol/L BUN 41 H (9-20) mg/dL Creatinine (0.66-1.25) mg/dL Glucose 136 H (74-99) mg/dL POC Glucose (mg/dL) (75-99) mg/dL Calcium 8.3 L (8.4-10.2) mg/dL Phosphorus 2.3 L (2.5-4.5) mg/dL Total Protein (6.3-8.2) g/dL Albumin (3.5-5.0) g/dL Microbiology - Last 24 Hours (Table) 06/25/20 22:34 Blood Culture - Preliminary Blood No Growth after 24 hours 06/25/20 22:27 Blood Culture - Preliminary Blood No Growth after 24 hours 06/25/20 19:42 Gram Stain - Preliminary Other - Other Wound Culture - Preliminary Assessment and Plan Plan: assessment: 1. Acute kidney injury mostly prerenal improving with IV hydration. Creatinine 0.93 today. 2. Perforated diverticulitis with pneumoperitoneum status post exploratory laparotomy on June 25. 3. atrial fibrillation maintained on metoprolol. 4. Benign hypertension. blood pressure on the higher side. Partially due to pain. 5. Hypokalemia from poor intake. magnesium normal. Plan: Hep-Lock IV fluids once PPN at goal. Continue to monitor renal function and urine output. Avoid nephrotoxins. potassium replaced.
[2020-06-27] MEDS ORDERED: POTASSIUM CHLORIDE 20 MEQ in WATER FOR INJECTION 1 100ML.BAG IVPB STA (10:44)
[2020-06-27 12:28] LABS: Glucose,Whole Blood 118 mg/dL (75-99)
[2020-06-27] MEDS: ACETAMINOPHEN IV (For NPO) 1,000 MG in EMPTY BAG 1 BAG IVPB SCH ×3 (12:41→22:58)
--- NOTE | 2020-06-27 13:49 | P.PN ---
Subjective Progress Note Date: 06/27/20 Principal diagnosis: Acute perforated sigmoid diverticulitis and acute kidney injury 80-year-old white male patient who follows with Dr. Joel, has a past medical history of prostate cancer with prior surgery followed by radiation, hypertension, paroxysmal atrial fibrillation on Coumadin, chronic back pain, who came into the hospital on 06/22/2020 for evaluation of increasing lower abdominal pain of 2 day history with intermittent nausea and vomiting. Patient also complained of constipation. CT of the abdomen and pelvis showed extensive sigmoid diverticulosis with a segment of diverticulitis and some fat and fluid containing left inguinal hernia and few fluid-filled loops of distal ileum suggestive of mild ileus. Initially patient was started on antibiotics, surgic al consultation was obtained, patient was kept nothing by mouth. ID service was consulted, patient was being treated with the combination of Zosyn and Flagyl. Patient developed acute kidney injury likely from hypotension and ATN. Nephrology was consulted. Over the weekend patient has developed atrial fibrillation with RVR. Follow-up abdominal x-ray on 06/25/2020 showed pneumoperitoneum, requiring emergent surgical intervention. In the evening of 06/25/2020 patient underwent Holter laparotomy with sigmoid resection for perforated sigmoid diverticulitis, descending colostomy creation with rectal stump, reduction and repair of incarcerated left inguinal hernia, Luke's procedure for perforated sigmoid diverticulitis, drainage of sigmoid diverticula abscess, drainage of left inguinal canal abscess, and peritoneal lavage. Today is postoperative day #1. Patient is seen in the intensive care unit, patient came to the intensive care unit following his surgery last night extubated, on high flow oxygen at 8 L, and FiO2 is currently down to 3 L and pulse ox is between 97-100%. Patient is arousable, a bit drowsy, but slow to respond, inattentive. CAM-ICU was positive. Hemodynamically patient is stable. Currently on 0.9 normal saline at a rate of 100 ML per hour. No vasoactive drips, no other infusions. Remains nothing by mouth, slight abdominal tenderness, abdominal incision with a wound VAC in place the total of 80 ML drainage since surgery. Denies any difficulty breathing, breathing is comfortable, this morning's chest x-ray shows elevation of the right hemidiaphragm with the possibility of hemidiaphragmatic paralysis, hypoventilatory changes with either mild pulmonary vascular congestion or oral crowding of the vascular markings. Patchy left basilar atelectasis. Patient continues on Zosyn and Flagyl for antibiotic coverage. Today's labs showed white blood cell count of 14.9, hemoglobin of 12.9, INR is 1.8, sodium is 140, potassium is 4.2, chloride is 112, BUN of 46, creatinine is 1.25, patient is receiving Dilantin for pain and discomfort, appears to be in no acute distress. He is in atrial fibrillation with a controlled rate, he is having an echocar diogram done. Patient was reevaluated today on 06/27/20, remains in the ICU, on 2 L nasal cannula, O2 saturations 96%. Patient is intermittently confused, but this morning he seems to be very appropriate. He is on TPN at 30 mL per hour, IV fluid is at 100 mL per hour. Patient is in atrial fibrillation with RVR rate of 1 24/m. That is being addressed by cardiology on the case. Patient is posto perative day #2 underwent exploratory laparotomy, sigmoid resection and colostomy. Labs were all reviewed, CBC is relatively unremarkable. Electrolytes are normal potassium is a bit low at 3.4 being corrected as per protocol. INR is 2.4, therapeutic. Chest x-ray showed minimal right pleural effusion with elevation of the right hemidiaphragm, and streaky atelectasis at the left base. Objective - Vital Signs Vital signs: Vital Signs Temp 97.9 F 06/27/20 08:00 Pulse 118 H 06/27/20 11:00 Resp 26 H 06/27/20 11:00 BP 156/115 06/27/20 11:00 Pulse Ox 95 06/27/20 11:00 Intake & Output 06/26/20 06/27/20 06/27/20 18:59 06:59 18:59 Intake Total 1600 2040 880 Output Total 485 882 485 Balance 1115 1158 395 Weight 93.2 kg 95.5 kg Intake: IV 1600 2040 880 Fat Emulsion 20% 250 ml @ 80 180 20.833 mls/hr IV DAILY@ 1400 [facility] Rx#:[id number] Mvi, Adult No.4 with Vit 120 360 180 K 10 ml Trace (Conc-1Ml/ Dose) 1 ml Parenteral Electrolytes 20 ml In Amino Acid 5%-D15w 1,000 ml @ 30 mls/hr IV .Q24H [facility] Rx#:[id number] Piperacillin-Tazobactam 3 100 100 100 .375 gm In Sodium Chloride 0.9% 100 ml @ 25 mls/hr IVPB Q8HR [facility] Rx# :[id number] Sodium Chloride 0.9% 1, 1200 1200 600 000 ml @ 100 mls/hr IV . Q10H [facility] Rx#:[id number] metroNIDAZOLE-NS PMX 500 100 200 mg In Saline 1 100ml.bag @ 100 mls/hr IVPB Q6HR [facility] Rx#:[id number] Output: Urine 485 882 485 Other: Voiding Method Indwelling Catheter Indwelling Catheter Indwelling Catheter - Exam GENERAL EXAM: Revealed an 80-year-old white male in no distress. HEENT: PERRLA, EOMI, neck, neck masses, no JVD, no stridor CHEST: No chest wall deformity. Symmetrical expansion. LUNGS: Equal air entry with no crackles, wheeze, rhonchi or dullness. CVS: Irregular irregular rhythm., normal S1 and S2, no gallops, no murmurs, no rubs ABDOMEN: Soft, nontender. No hepatosplenomegaly, normal bowel sounds, no guarding or rigidity. Midabdominal incision with a wound VAC in place, colostomy in place, with no gas or stool in it EXTREMITIES: No clubbing, no edema, no cyanosis, 2+ pulses and upper and lower extremities. MUSCULOSKELETAL: Muscle strength and tone normal. SPINE: No scoliosis or deformity SKIN: No rashes CENTRAL NERVOUS SYSTEM: Slightly drowsy and oriented -1. No focal deficits, tone is normal in all 4 extremities. PSYCHIATRIC: Slightly drowsy and oriented -1. Appropriate affect. Intact judgment and insight. - Labs CBC & Chem 7: 06/27/20 06:31 06/27/20 06:31 Labs: Abnormal Lab Results - Last 24 Hours (Table) 06/26/20 06/26/20 06/27/20 Range/Units 18:59 23:49 06:02 WBC (3.8-10.6) k/uL MCHC (31.0-37.0) g/dL Neutrophils # (1.3-7.7) k/uL Lymphocytes # (1.0-4.8) k/uL PT (9.0-12.0) sec INR (<1.2) Potassium (3.5-5.1) mmol/L Chloride (98-107) mmol/L Carbon Dioxide (22-30) mmol/L BUN (9-20) mg/dL Glucose (74-99) mg/dL POC Glucose (mg/dL) 128 H 160 H 130 H (75-99) mg/dL Calcium (8.4-10.2) mg/dL Phosphorus (2.5-4.5) mg/dL 06/27/20 06/27/20 06/27/20 Range/Units 06:31 06:31 08:31 WBC 13.5 H (3.8-10.6) k/uL MCHC 30.1 L (31.0-37.0) g/dL Neutrophils # 11.7 H (1.3-7.7) k/uL Lymphocytes # 0.5 L (1.0-4.8) k/uL PT 23.0 H (9.0-12.0) sec INR 2.4 H (<1.2) Potassium 3.4 L (3.5-5.1) mmol/L Chloride 115 H (98-107) mmol/L Carbon Dioxide 21 L (22-30) mmol/L BUN 41 H (9-20) mg/dL Glucose 136 H (74-99) mg/dL POC Glucose (mg/dL) (75-99) mg/dL Calcium 8.3 L (8.4-10.2) mg/dL Phosphorus 2.3 L (2.5-4.5) mg/dL 06/27/20 Range/Units 12:07 WBC (3.8-10.6) k/uL MCHC (31.0-37.0) g/dL Neutrophils # (1.3-7.7) k/uL Lymphocytes # (1.0-4.8) k/uL PT (9.0-12.0) sec INR (<1.2) Potassium (3.5-5.1) mmol/L Chloride (98-107) mmol/L Carbon Dioxide (22-30) mmol/L BUN (9-20) mg/dL Glucose (74-99) mg/dL POC Glucose (mg/dL) 118 H (75-99) mg/dL Calcium (8.4-10.2) mg/dL Phosphorus (2.5-4.5) mg/dL Microbiology - Last 24 Hours (Table) 06/25/20 22:34 Blood Culture - Preliminary Blood No Growth after 24 hours 06/25/20 22:27 Blood Culture - Preliminary Blood No Growth after 24 hours 06/25/20 19:42 Gram Stain - Preliminary Other - Other Wound Culture - Preliminary Assessment and Plan Assessment: #1. Acute hypoxic respiratory failure due to postoperative hypoventilation, along with postoperative atelectasis, expected, improving presently based on the chest x-ray today #2. Perforated sigmoid diverticulitis, with pneumoperitoneum, incarcerated left inguinal hernia, status post exploratory laparotomy with sigmoid resection, descending colostomy creation with rectal stump, reduction and repair of incarcerated left inguinal hernia, Luke's procedure, drainage of sigmoid di verticular abscess, drainage of left inguinal canal abscess and peritoneal lavage, postoperative day number 1. There was a placement of intra-abdominal drain along the pelvis, and placement of wound VAC in the abdominal wall #3. Acute intra-abdominal sepsis related to the above, on Zosyn and Flagyl for antibiotic coverage #4. Acute kidney injury related to acute sepsis, ATN, renal function is improving, and nephrology is on the case #5. A. fib with RVR, the rate is currently better controlled, remains off anticoagulation other than prophylactic doses of heparin #6. Hypertension, history of #7. History of prostate cancer, history of surgical resection followed by radiation #8. Osteoarthritis Recommendation: Continue incentive spirometry. Continue present meds as listed. Continue TPN. Continue GI and DVT prophylaxis. Continue addressing his atrial fibrillation with RVR as per cardiology. Transfer patient out of the ICU to a monitor bed on selective. Time with Patient: Less than 30
--- NOTE | 2020-06-27 14:18 | P.PN ---
<Jacquie Sanchez - Last Filed: 06/27/20 14:13> Subjective Progress Note Date: 06/27/20 CHIEF COMPLAINT: Abdominal pain HISTORY OF PRESENT ILLNESS: Patient's pain followed for acute diverticulitis with perforation. Over the weekend he was having abdominal pain had an abdominal x-ray completed showing interval development of extensive pneumoperitoneum. Patient was taken to the OR. He is postop day #2. He is now currently in the ICU. Patient is still having episodes of confusion. He had been reporting abdominal pain. And pain medications are being adjusted. He has been restarted on his Coumadin for his A. fib. Potassium is 3.4 patient receiving potassium supplement. He is scheduled to be transferred out of the ICU the third floor. WBC is 13.5. Patient is afebrile. PHYSICAL EXAM: VITAL SIGNS: Reviewed GENERAL: Well-developed in no acute distress. HEENT: No sclera icterus. Extraocular movements grossly intact. Moist buccal mucosa. Head is atraumatic, normocephalic. Hears conversational speech. No nasal drainage. NECK: Supple without lymphadenopathy. CHEST: Non-labored respirations and equal bilateral excursions. CARDIOVASCULAR: Palpable 2+ radial pulses. ABDOMEN: Soft. Distended. Dressing clean dry and intact. Colostomy with serosanguineous drainage MUSCULOSKELETAL: No clubbing or cyanosis. NEUROLOGIC: No focal or lateralizing signs. Cranial nerves II through XII grossly intact. PSYCH: Appropriate affect. Alert and oriented to person, place and time. SKIN: Well perfused. Good skin turgor. ASSESSMENT: 1. Pneumoperitoneum status post exploratory laparotomy with sigmoid resection for perforated sigmoid diverticulitis, descending colostomy creation with rectal stump, reduction and repair of incarcerated left inguinal hernia, Iwona's procedure for perforated sigmoid diverticulitis, drainage of sigmoid diverticular abscess, drainage of left inguinal canal, abscess, placement of intraabdominal #19 Prince drain along the pelvis and placement of universal incisional PREVENA wound VAC system 2. Acute sigmoid diverticulitis, perforated sigmoid diverticulitis 3. Incarcerated left inguinal hernia 4. Sepsis with mental status changes, new 5. Leukocytosis 6. Atrial fibrillation 7. Chronic Coumadin therapy 8. Hypertensive heart disease 9. History of prostate cancer 10. Status post pelvic radiation for prostate cancer 11. Pelvic diverticular abscess, left lower quadrant PLAN: -Continue antibiotics -Okay to transfer out of the ICU to selective -Continue TPN for nutritional support -Continue pain medications for pain control Physician [employer] On Call note has been reviewed by physician. Signing provider agrees with the documented findings, assessment, and plan of care. Objective - Vital Signs Vital signs: Vital Signs Temp 97.9 F 06/27/20 08:00 Pulse 118 H 06/27/20 11:00 Resp 26 H 06/27/20 11:00 BP 156/115 06/27/20 11:00 Pulse Ox 95 06/27/20 11:00 Intake & Output 06/26/20 06/27/20 06/27/20 18:59 06:59 18:59 Intake Total 1600 2040 880 Output Total 485 882 485 Balance 1115 1158 395 Weight 93.2 kg 95.5 kg Intake: IV 1600 2040 880 Fat Emulsion 20% 250 ml @ 80 180 20.833 mls/hr IV DAILY@ 1400 [facility] Rx#:[id number] Mvi, Adult No.4 with Vit 120 360 180 K 10 ml Trace (Conc-1Ml/ Dose) 1 ml Parenteral Electrolytes 20 ml In Amino Acid 5%-D15w 1,000 ml @ 30 mls/hr IV .Q24H [facility] Rx#:[id number] Piperacillin-Tazobactam 3 100 100 100 .375 gm In Sodium Chloride 0.9% 100 ml @ 25 mls/hr IVPB Q8HR [facility] Rx# :[id number] Sodium Chloride 0.9% 1, 1200 1200 600 000 ml @ 100 mls/hr IV . Q10H [facility] Rx#:[id number] metroNIDAZOLE-NS PMX 500 100 200 mg In Saline 1 100ml.bag @ 100 mls/hr IVPB Q6HR [facility] Rx#:[id number] Output: Urine 485 882 485 Other: Voiding Method Indwelling Catheter Indwelling Catheter Indwelling Catheter - Labs CBC & Chem 7: 06/27/20 06:31 06/27/20 06:31 Labs: Abnormal Lab Results - Last 24 Hours (Table) 06/26/20 06/26/20 06/27/20 Range/Units 18:59 23:49 06:02 WBC (3.8-10.6) k/uL MCHC (31.0-37.0) g/dL Neutrophils # (1.3-7.7) k/uL Lymphocytes # (1.0-4.8) k/uL PT (9.0-12.0) sec INR (<1.2) Potassium (3.5-5.1) mmol/L Chloride (98-107) mmol/L Carbon Dioxide (22-30) mmol/L BUN (9-20) mg/dL Glucose (74-99) mg/dL POC Glucose (mg/dL) 128 H 160 H 130 H (75-99) mg/dL Calcium (8.4-10.2) mg/dL Phosphorus (2.5-4.5) mg/dL 06/27/20 06/27/20 06/27/20 Range/Units 06:31 06:31 08:31 WBC 13.5 H (3.8-10.6) k/uL MCHC 30.1 L (31.0-37.0) g/dL Neutrophils # 11.7 H (1.3-7.7) k/uL Lymphocytes # 0.5 L (1.0-4.8) k/uL PT 23.0 H (9.0-12.0) sec INR 2.4 H (<1.2) Potassium 3.4 L (3.5-5.1) mmol/L Chloride 115 H (98-107) mmol/L Carbon Dioxide 21 L (22-30) mmol/L BUN 41 H (9-20) mg/dL Glucose 136 H (74-99) mg/dL POC Glucose (mg/dL) (75-99) mg/dL Calcium 8.3 L (8.4-10.2) mg/dL Phosphorus 2.3 L (2.5-4.5) mg/dL 06/27/20 Range/Units 12:07 WBC (3.8-10.6) k/uL MCHC (31.0-37.0) g/dL Neutrophils # (1.3-7.7) k/uL Lymphocytes # (1.0-4.8) k/uL PT (9.0-12.0) sec INR (<1.2) Potassium (3.5-5.1) mmol/L Chloride (98-107) mmol/L Carbon Dioxide (22-30) mmol/L BUN (9-20) mg/dL Glucose (74-99) mg/dL POC Glucose (mg/dL) 118 H (75-99) mg/dL Calcium (8.4-10.2) mg/dL Phosphorus (2.5-4.5) mg/dL Microbiology - Last 24 Hours (Table) 06/25/20 22:34 Blood Culture - Preliminary Blood No Growth after 24 hours 06/25/20 22:27 Blood Culture - Preliminary Blood No Growth after 24 hours 06/25/20 19:42 Gram Stain - Preliminary Other - Other Wound Culture - Preliminary <Tosha Lau N - Last Filed: 07/05/20 21:32> Subjective Patient seen and evaluated with above. Please see additional documentation. Incisional dressing intact with incisional wound VAC system. Ostomy pink patent. Pending colostomy nurse education. PICC line for TPN and IV antibiotics. Patient being followed by infectious disease. Monitor WBC Objective - Vital Signs Vital signs: Vital Signs Temp 98.1 F 07/05/20 15:05 Pulse 89 07/05/20 15:05 Resp 16 07/04/20 15:48 BP 115/81 07/05/20 15:05 Pulse Ox 93 L 07/05/20 15:05 Intake & Output 07/05/20 07/05/20 07/06/20 06:59 18:59 06:59 Intake Total 140 570 Output Total 620 Balance 140 -50 Weight 93.5 kg Intake: IV 100 Piperacillin-Tazobactam 3 100 .375 gm In Sodium Chloride 0.9% 100 ml @ 25 mls/hr IVPB Q8HR [facility] Rx# :[id number] Intake, IV Titration 140 120 Amount Piperacillin-Tazobactam 3 100 .375 gm In Sodium Chloride 0.9% 100 ml @ 25 mls/hr IVPB Q8HR [facility] Rx# :[id number] Sodium Chloride 0.9% 1, 40 120 000 ml @ 20 mls/hr IV . Q24H [facility] Rx#:[id number] Oral 350 Output: Drainage 20 Abdomen 20 Urine 600 Other: Voiding Method Toilet Urinal # Voids 2 2 # Bowel Movements 2 - Labs CBC & Chem 7: 07/05/20 06:28 07/04/20 07:37 Labs: Abnormal Lab Results - Last 24 Hours (Table) 07/05/20 07/05/20 Range/Units 06:28 06:28 RBC 3.41 L (4.30-5.90) m/uL Hgb 9.8 L (13.0-17.5) gm/dL Hct 29.8 L (39.0-53.0) % Lymphocytes # 0.8 L (1.0-4.8) k/uL PT 35.4 H (9.9-11.9) sec INR 3.47 H (0.90-1.11) Assessment and Plan (1) Sigmoid diverticulitis Status: Acute Code(s): K57.32 - DVTRCLI OF LG INT W/O PERFORATION OR ABSCESS W/O BLEEDING SNOMED Code(s): 420103903 (2) Prostate cancer Status: Acute Code(s): C61 - MALIGNANT NEOPLASM OF PROSTATE SNOMED Code(s): 511989431 (3) Atrial fibrillation Status: Acute Code(s): I48.91 - UNSPECIFIED ATRIAL FIBRILLATION SNOMED Code(s): 01707652 (4) Anticoagulated on Coumadin Status: Acute Code(s): Z79.01 - SHELTER (CURRENT) USE OF ANTICOAGULANTS SNOMED Code(s): 85999733 (5) Acute tubular necrosis Status: Acute Code(s): N17.0 - ACUTE KIDNEY FAILURE WITH TUBULAR NECROSIS SNOMED Code(s): 37744654
--- NOTE | 2020-06-27 15:31 | PN ---
PROGRESS NOTE DATE OF SERVICE: 06/27/2020 REASON FOR FOLLOWUP: Perforated diverticulitis and abdominal abscess. INTERVAL HISTORY: The patient is currently afebrile. The patient is breathing comfortably. Abdominal pain is currently controlled. No chest pain. No cough. No nausea, no vomiting, and now a colostomy bag. PHYSICAL EXAMINATION: Blood pressure 150/100 with a pulse of 108, temperature 98, he is 95% on room air. General description is an elderly male, lying in bed in no distress. RESPIRATORY SYSTEM: Unlabored breathing, decreased breath sounds at the base, no wheeze. HEART: S1, S2. Regular rate and rhythm. ABDOMEN: Soft, no tenderness. LABS: Hemoglobin is 17, white count is 13.5, BUN of 41, creatinine 0.93. Abdominal cultures currently pending. DIAGNOSTIC IMPRESSION AND PLAN: Patient with secondary peritonitis from perforated sigmoid diverticulitis, status post diverting colostomy with the abscess cultures currently pending. Patient is covered with Zosyn to continue and monitor clinical course closely. MMODL / IJN: [id number] /
[2020-06-27] MEDS: FAT EMULSION 20% 250 ML IV SCH (16:00)
[2020-06-27] MEDS: 1: MVI, ADULT NO.4 WITH VIT K 10 ML, TRACE (CONC-1ML/DOSE) 1 ML, PARENTERAL ELECTROLYTES IV SCH ×4 (16:01)
--- NOTE | 2020-06-27 16:48 | P.PN ---
Progress Note - Text Progress Note Date: 06/27/20 Chief Complaint: Abdominal pain History of presenting complaint: This is a very pleasant 80-year-old patient of Dr. Joel. Chronic stable medical conditions include paroxysmal atrial fibrillation on Coumadin, hypertension, prostate cancer treated by surgery and followed by radiation treatment a year later, back surgery. The last 2 or 3 days patient with having increasing lower abdominal pain started off with nausea after he presented today also vomited couple of times. Denied any fever and chills. Patient baseline normally has 2 or 3 bowel movements a day. Last bowel movement was 2 days ago. Abdomen felt distended. Computed tomography scan of the abdomen that showed extensive sigmoid diverticulosis with asymmetry with a segment of diverticulitis and some fat and fluid containing left inguinal hernia and few fluid-filled loops of distal ileum. Admitted with acute sigmoid diverticular to severe, with ileus. Coumadin toxicity for which received vitamin K.on June 25 evening patient was taken to the OR by Dr. Kwok. Found to have a perforated sigmoid diverticulitis with stool and pus in the abdomen.patient underwent sigmoid resection followed by colostomy creation and repair of incarcerated left inguinal hernia/Luke's procedure. Pericardial large. Drain was placed. An incisional wound VAC was placed. Postprocedure, admitted to the ICU. Started on IV TPN and lipids. On IV Zosyn and Flagyl. Today-moved out of the ICU. Laying in bed. Tired. Awake. On ice chips. Granado cath in place. Some abdominal pain. Scrotal swelling. Review of systems: Was done for constitutional, cardiovascular, GI, pulmonary. relevant finding as above Active Medications Amlodipine Besylate (Amlodipine 10 Mg Tab) 10 mg PO DAILY [facility] Last Admin: 06/27/20 08:20 Dose: 10 mg Documented by: Hydralazine HCl (Hydralazine Hcl 20 Mg/Ml 1 Ml Vial) 15 mg IVP Q4HR PRN PRN Reason: Blood Pressure - High Last Admin: 06/27/20 02:43 Dose: 15 mg Documented by: Piperacillin Sod/Tazobactam (Sod 3.375 gm/ Sodium Chloride) 100 mls @ 25 mls/hr IVPB Q8HR [facility] Last Admin: 06/27/20 16:15 Dose: 25 mls/hr Documented by: Metronidazole 500 mg/ IV (Solution) 100 mls @ 100 mls/hr IVPB Q6HR [facility] Last Admin: 06/27/20 12:43 Dose: 100 mls/hr Documented by: Sodium Chloride (Saline 0.9%) 1,000 mls @ 100 mls/hr IV .Q10H [facility] Last Admin: 06/27/20 12:44 Dose: 100 mls/hr Documented by: Parenteral Vitamin Supplement 10 ml/ Chromium/Copper/Manganese/Seleni/Zn 1 ml/Parenteral Electrolytes 20 ml/Amino Acids/Dextrose 1,031 mls @ 95 mls/hr IV .BY DURATION [facility] Last Admin: 06/27/20 16:01 Dose: 95 mls/hr Documented by: Parenteral Electrolytes 20 ml/ (Amino Acids/Dextrose) 1,020 mls @ 95 mls/hr IV .BY DURATION [facility] Fat Emulsion Intravenous (Lipids 20%) 250 mls @ 20.833 mls/hr IV DAILY@1400 [facility] Last Admin: 06/27/20 16:00 Dose: 20.833 mls/hr Documented by: Acetaminophen 1,000 mg/ IV (Solution) 100 mls @ 400 mls/hr IVPB Q6HR [facility] Stop: 06/28/20 06:14 Last Admin: 06/27/20 12:41 Dose: 400 mls/hr Documented by: Metoprolol Tartrate (Metoprolol Tartrate 50 Mg Tab) 50 mg PO BID [facility] Last Admin: 06/27/20 08:20 Dose: 50 mg Documented by: Miscellaneous Information (Potassium Replacement Protocol 1 Each Misc) 1 each MISCELLANE DAILY PRN; Protocol PRN Reason: Per Protocol Miscellaneous Information (Warfarin Per Pharmacy) 0 each MISCELLANE DIRECTED PRN PRN Reason: ANTICOAG Naloxone HCl (Naloxone 0.4 Mg/Ml 1 Ml Vial) 0.2 mg IV Q2M PRN PRN Reason: Opioid Reversal Ondansetron HCl (Ondansetron 4 Mg/2 Ml Vial) 4 mg IVP Q6HR PRN PRN Reason: Nausea And Vomiting Last Admin: 06/27/20 08:40 Dose: 4 mg Documented by: Pantoprazole Sodium (Pantoprazole 40 Mg/10 Ml Vial) 40 mg IVP DAILY [facility] Last Admin: 06/27/20 08:20 Dose: 40 mg Documented by: Prochlorperazine Maleate (Prochlorperazine 10 Mg Tab) 10 mg PO Q6HR PRN PRN Reason: Nausea And Vomiting Trazodone HCl (Trazodone Hcl 50 Mg Tab) 50 mg PO HS [facility] Last Admin: 06/26/20 21:03 Dose: Not Given Documented by: Physical examination: VITAL SIGNS: 98.2, 120, 20, 160s rebound 05, 95% on 2 L GENERAL: Laying in bed, tired EYES: Pupils equal. Conjunctiva normal. HEENT: External appearance of nose and ears normal, oral cavity grossly normal. NECK: JVD not raised; masses not palpable. HEART: First and second heart sounds are normal; no edema. LUNGS: Respiratory rate normal; clear to auscultation. ABDOMEN: Soft,tender, DEJON drain, incisional wound VAC, no mass palpable, scrotal swelling PSYCH: Alert and oriented x3; mood and affect tired INVESTIGATIONS, reviewed in the clinical context: White count 13.5 hemoglobin 13.6 platelets 244 potassium 3.4 creatinine 0.93 Previous testing White count 15.4 hemoglobin 13.5 platelets 196 INR 4.8 potassium 3.7 creatinine 1.06 Computed tomography scan of the abdomen pelvis-sigmoid diverticulosis with diverticulitis. No free air. Some air-fluid levels in the distal ileum Abdominal x-ray-06/25/2020 film personally reviewed by me shows free air Assessment: -Acute severe sigmoid diverticulitis-with perforation-leading to sigmoid resection with Iwona's procedure and a colostomy. Patient has DEJON drain -Secondary peritonitis secondary to ruptured viscus, causing sepsis -repair- Incarcerated left inguinal hernia -Acute kidney injury likely from hypotension-worsening -Colonic diverticulosis -Paroxysmal atrial fibrillation chronically on Coumadin -Coumadin monitoring with toxicity-give vitamin K.-Corrected -Prostate cancer with a history of surgery and radiation treatment -Hypoalbuminemia-reactive Plan: -patient getting IV TPN and lipids. IV Flagyl, IV Zosyn. Discussed with the patient and at the bedside. Questions answered.
[2020-06-27] MEDS ORDERED: WARFARIN 2 MG TAB PO ONE (18:00)
[2020-06-27 18:01] LABS: Glucose,Whole Blood 96 mg/dL (75-99)
[2020-06-27 19:09] LABS: Hemoglobin A1C 5.9 % (4.0-6.0)
[2020-06-27] MEDS: traZODone HCL 50 MG TAB PO SCH (20:56)
[2020-06-28 00:21] LABS: Glucose,Whole Blood 109 mg/dL (75-99)
[2020-06-28] MEDS: PIPERACILLIN-TAZOBACTAM 3.375 GM in SODIUM CHLORIDE 0.9% 100 ML IVPB SCH ×3 (01:06→16:28)
[2020-06-28] MEDS: hydrALAZINE HCL 20 MG/ML 1 ML VIAL IVP PRN ×3 (03:28→22:09)
[2020-06-28] MEDS: metroNIDAZOLE-NS PMX 500 MG in SALINE 1 100ML.BAG IVPB SCH ×4 (06:08→23:21)
[2020-06-28] MEDS: ACETAMINOPHEN IV (For NPO) 1,000 MG in EMPTY BAG 1 BAG IVPB SCH (06:09)
[2020-06-28 06:11] LABS: Glucose,Whole Blood 157 mg/dL (75-99)
[2020-06-28] MEDS ORDERED: IPRATROPIUM-ALBUTEROL 3 ML NEB INHALATION PRN (06:20)
[2020-06-28] MEDS: 1: MVI, ADULT NO.4 WITH VIT K 10 ML, TRACE (CONC-1ML/DOSE) 1 ML, PARENTERAL ELECTROLYTES IV SCH ×8 (06:27→13:20)
[2020-06-28 07:31] LABS: HCT 42.9 % (39.0-53.0); Hypochromasia Slight; MCH 27.4 pg (25.0-35.0); MCHC 30.3 g/dL (31.0-37.0); MCV 90.2 fL (80.0-100.0); Mean Platelet Volume 7.2; Platelet Count 293 k/uL (150-450); RBC 4.75 m/uL (4.30-5.90); RDW 14.8 % (11.5-15.5); WBC 13.8 k/uL (3.8-10.6)
[2020-06-28 07:47] LABS: African American GFR (CKD) >90 (>60 ml/min/1.73 sqM); Anion Gap 3 mmol/L; Blood Urea Nitrogen 40 mg/dL (9-20); Calcium 8.4 mg/dL (8.4-10.2); Carbon Dioxide 21 mmol/L (22-30); Chloride 115 mmol/L (98-107); Glucose 160 mg/dL (74-99); Magnesium 2.1 mg/dL (1.6-2.3); Non-African American GFR(CKD) 79 (>60 ml/min/1.73 sqM); Phosphorus 2.1 mg/dL (2.5-4.5); Potassium 3.7 mmol/L (3.5-5.1); Sodium 139 mmol/L (137-145)
[2020-06-28 07:51] LABS: INR 2.3 (<1.2); Prothrombin Time 22.1 sec (9.0-12.0)
[2020-06-28] MEDS: IPRATROPIUM-ALBUTEROL 3 ML NEB INHALATION SCH ×5 (08:00→23:58)
[2020-06-28] MEDS: METOPROLOL TARTRATE 50 MG TAB PO SCH ×2 (08:28→20:03)
[2020-06-28] MEDS: PANTOPRAZOLE 40 MG/10 ML VIAL IVP SCH (08:29)
[2020-06-28] MEDS: amLODIPine 10 MG TAB PO SCH (08:29)
[2020-06-28] MEDS ORDERED: FUROSEMIDE 10 MG/ML 4 ML VIAL IV STA (08:44)
[2020-06-28] MEDS ORDERED: FUROSEMIDE 10 MG/ML 4 ML VIAL ONE (08:45)
[2020-06-28 08:56] LABS: ABG Base Excess -1.3 mmol/L; ABG HCO3 22 mmol/L (21-25); ABG Oxygen Saturation 95.2 % (94-97); ABG PCO2 30 mmHg (35-45); ABG PH 7.47 (7.35-7.45); ABG PO2 70 mmHg (83-108); ABG TCO2 23 mmol/L (19-24); Allen Test Performed? Yes
[2020-06-28] MEDS ORDERED: POTASSIUM PHOSPHATE 10 MMOL in SODIUM CHLORIDE 0.9% 100 ML IV ONE (09:00)
--- NOTE | 2020-06-28 09:05 | XR ---
EXAMINATION TYPE: XR chest 1V DATE OF EXAM: 06/28/2020 HISTORY: Shortness of breath. COMPARISON: 06/27/2020 TECHNIQUE: Single view of the chest is submitted. FINDINGS: Demonstrated are scattered senescent parenchymal change. Degree of inspiration is limiting. Increased right basilar density may reflect underlying atelectasis or infiltrate with small effusion. Right-sided PICC line is unchanged. The heart is stable. Hilar and mediastinal structures are within normal limits. Degenerative changes are seen of the dorsal spine. IMPRESSION: 1. Degree of inspiration is limiting. Increased right basilar density may reflect underlying atelect asis or infiltrate with small effusion.
--- NOTE | 2020-06-28 09:08 | P.PN ---
Subjective patient is seen in follow-up for acute kidney injury. renal function back to baseline. Currently maintained on PPN. underwent exploratory laparotomy with sigmoid resection for perforated sigmoid diverticulitis on June 25. hemodynamically stable. patient currently complaining of shortness of breath. Noted to be more edematous as well. 'A' team called. Vital signs are stable. General: The patient appeared well nourished and normally developed. HEENT: Head exam is unremarkable. Neck is without jugular venous distension. LUNGS: Breath sounds decreased. HEART: irregular rate and rhythm. ABDOMEN: surgical abdomen. Mild tenderness. EXTREMITITES: 2+ edema. Objective - Vital Signs Vital signs: Vital Signs Temp 96.9 F L 06/28/20 08:00 Pulse 96 06/28/20 08:15 Resp 28 H 06/28/20 08:00 BP 152/113 06/28/20 08:00 Pulse Ox 95 06/28/20 08:00 Intake & Output 06/27/20 06/28/20 06/28/20 18:59 06:59 18:59 Intake Total 1340 Output Total 485 835 Balance 855 -835 Weight 93.5 kg Intake: IV 1240 Mvi, Adult No.4 with Vit 240 K 10 ml Trace (Conc-1Ml/ Dose) 1 ml Parenteral Electrolytes 20 ml In Amino Acid 5%-D15w 1,000 ml @ 30 mls/hr IV .Q24H [facility] Rx#:[id number] Piperacillin-Tazobactam 3 100 .375 gm In Sodium Chloride 0.9% 100 ml @ 25 mls/hr IVPB Q8HR [facility] Rx# :[id number] Sodium Chloride 0.9% 1, 800 000 ml @ 100 mls/hr IV . Q10H [facility] Rx#:[id number] metroNIDAZOLE-NS PMX 500 100 mg In Saline 1 100ml.bag @ 100 mls/hr IVPB Q6HR [facility] Rx#:[id number] Intake, IV Titration 100 Amount Potassium Chloride 20 meq 100 In Water For Injection 1 100ml.bag @ 50 mls/hr [facility] Rx#: [id number] Output: Drainage 10 Abdomen 10 Urine 485 825 Other: Voiding Method Indwelling Catheter Indwelling Catheter - Labs CBC & Chem 7: 06/28/20 06:49 06/28/20 06:49 Labs: Abnormal Lab Results - Last 24 Hours (Table) 06/27/20 06/28/20 06/28/20 Range/Units 12:07 00:19 06:09 WBC (3.8-10.6) k/uL MCHC (31.0-37.0) g/dL PT (9.0-12.0) sec INR (<1.2) ABG pH (7.35-7.45) ABG pCO2 (35-45) mmHg ABG pO2 (83-108) mmHg Chloride (98-107) mmol/L Carbon Dioxide (22-30) mmol/L BUN (9-20) mg/dL Glucose (74-99) mg/dL POC Glucose (mg/dL) 118 H 109 H 157 H (75-99) mg/dL Phosphorus (2.5-4.5) mg/dL 06/28/20 06/28/20 06/28/20 Range/Units 06:49 06:49 06:49 WBC 13.8 H (3.8-10.6) k/uL MCHC 30.3 L (31.0-37.0) g/dL PT 22.1 H (9.0-12.0) sec INR 2.3 H (<1.2) ABG pH (7.35-7.45) ABG pCO2 (35-45) mmHg ABG pO2 (83-108) mmHg Chloride 115 H (98-107) mmol/L Carbon Dioxide 21 L (22-30) mmol/L BUN 40 H (9-20) mg/dL Glucose 160 H (74-99) mg/dL POC Glucose (mg/dL) (75-99) mg/dL Phosphorus 2.1 L (2.5-4.5) mg/dL 06/28/20 Range/Units 08:53 WBC (3.8-10.6) k/uL MCHC (31.0-37.0) g/dL PT (9.0-12.0) sec INR (<1.2) ABG pH 7.47 H (7.35-7.45) ABG pCO2 30 L (35-45) mmHg ABG pO2 70 L (83-108) mmHg Chloride (98-107) mmol/L Carbon Dioxide (22-30) mmol/L BUN (9-20) mg/dL Glucose (74-99) mg/dL POC Glucose (mg/dL) (75-99) mg/dL Phosphorus (2.5-4.5) mg/dL Microbiology - Last 24 Hours (Table) 06/25/20 22:34 Blood Culture - Preliminary Blood No Growth after 48 hours 06/25/20 22:27 Blood Culture - Preliminary Blood No Growth after 48 hours 06/25/20 19:42 Gram Stain - Final Other - Other Wound Culture - Final Assessment and Plan Plan: assessment: 1. Acute kidney injury mostly prerenal improving with IV hydration. Creatinine 0.9 today. 2. Perforated diverticulitis with pneumoperitoneum status post exploratory laparotomy on June 25. 3. atrial fibrillation maintained on metoprolol. 4. Benign hypertension. blood pressure on the higher side. Partially due to pain. 5. Hypokalemia from poor intake. magnesium normal. status post replacement. 6. Hypophosphatemia from poor intake. 7. Volume overload. 8. Acute hypoxic respiratory failure. Plan: remains off IV fluids. Check chest x-ray and ABG now. Lasix 40 mg IV once now. Increase oxygen support. Will potentially need to be transferred back to the intensive care unit. Phosphorus being replaced. Avoid nephrotoxins.
--- NOTE | 2020-06-28 10:39 | XR ---
EXAMINATION TYPE: XR abdomen 1V DATE OF EXAM: 06/28/2020 COMPARISON: NONE HISTORY: R/O Obstruction,Ileus, NGT placement TECHNIQUE: Single supine KUB image of the abdomen is obtained FINDINGS: Skin linh are noted to the right of midline. Surgical drain is identified within the pelvis. There is distention of small bowel measuring up to 4.1 cm. Air is noted within the right hemicolon. No jose juan e air seen with certainty. NG tube is noted to be in place. Increased density right lung base IMPRESSION: 1. Nonspecific findings which may reflect ileus. Correlate clinically and continued follow-up is advised.
[2020-06-28 11:27] LABS: Glucose,Whole Blood 173 mg/dL (75-99)
[2020-06-28] MEDS: INSULIN ASPART (NovoLOG) 100 UNIT/ML VIAL SQ SCH ×3 (11:34→22:27)
--- NOTE | 2020-06-28 13:37 | P.PN ---
<HarryyusufJacquie - Last Filed: 06/28/20 13:29> Subjective Progress Note Date: 06/28/20 CHIEF COMPLAINT: Abdominal pain HISTORY OF PRESENT ILLNESS: Patient's pain followed for acute diverticulitis with perforation. Over the weekend he was having abdominal pain had an abdominal x-ray completed showing interval development of extensive pneumoperitoneum. Patient was taken to the OR. He is postop day #3. Patient was transferred out of the ICU yesterday. Apparently this morning on 18 was called. Patient became short of breath he was having labored breathing and use of the sensory muscles with wheezing and coarse breath sounds. Oxygen saturation was 95% on 3 L. Patient was given a breathing treatment and 40 mg of IV Lasix. And patient was transferred back to the ICU. Patient also had started vomiting and NG tube was placed with 1 L of bilious output. Patient afebrile. White count 13.8 potassium 3.7 creatinine 0.90 Abdominal x-ray reporting nonspecific findings which may reflect ileus Chest x-ray report states increased right basilar density may reflect underlying atelectasis or infiltrate with small effusion PHYSICAL EXAM: VITAL SIGNS: Reviewed GENERAL: Well-developed in no acute distress. HEENT: No sclera icterus. Extraocular movements grossly intact. Moist buccal mucosa. Head is atraumatic, normocephalic. Hears conversational speech. No nasal drainage. NECK: Supple without lymphadenopathy. CHEST: Non-labored respirations and equal bilateral excursions. CARDIOVASCULAR: Palpable 2+ radial pulses. ABDOMEN: Soft. Mildly distended. Dressing clean dry and intact. Colostomy with serosanguineous drainage MUSCULOSKELETAL: No clubbing or cyanosis. NEUROLOGIC: No focal or lateralizing signs. Cranial nerves II through XII grossly intact. PSYCH: Appropriate affect. Alert and oriented to person, place and time. SKIN: Well perfused. Good skin turgor. ASSESSMENT: 1. Pneumoperitoneum status post exploratory laparotomy with sigmoid resection for perforated sigmoid diverticulitis, descending colostomy creation with rectal stump, reduction and repair of incarcerated left inguinal hernia, Iwona's procedure for perforated sigmoid diverticulitis, drainage of sigmoid div erticular abscess, drainage of left inguinal canal, abscess, placement of intraabdominal #19 Prince drain along the pelvis and placement of universal incisional PREVENA wound VAC system 2. Acute sigmoid diverticulitis, perforated sigmoid diverticulitis 3. Incarcerated left inguinal hernia 4. Sepsis with mental status changes, new 5. Leukocytosis 6. Atrial fibrillation 7. Chronic Coumadin therapy 8. Hypertensive heart disease 9. History of prostate cancer 10. Status post pelvic radiation for prostate cancer 11. Pelvic diverticular abscess, left lower quadrant 12. Ileus PLAN: -NG tube for decompression -Continue antibiotics -Continue pain medications for pain control Physician Construction Teacher note has been reviewed by physician. Signing provider agrees with the documented findings, assessment, and plan of care. Objective - Vital Signs Vital signs: Vital Signs Temp 98.1 F 06/28/20 12:00 Pulse 95 06/28/20 13:00 Resp 18 06/28/20 13:00 BP 129/97 06/28/20 13:00 Pulse Ox 95 06/28/20 13:00 Intake & Output 06/27/20 06/28/20 06/28/20 18:59 06:59 18:59 Intake Total 1340 540 Output Total 878 999 9090 Balance 968 -923 Weight 93.5 kg 93.5 kg Intake: IV 1240 360 Mvi, Adult No.4 with Vit 240 360 K 10 ml Trace (Conc-1Ml/ Dose) 1 ml Parenteral Electrolytes 20 ml In Amino Acid 5%-D15w 1,000 ml @ 30 mls/hr IV .Q24H [facility] Rx#:[id number] Piperacillin-Tazobactam 3 100 .375 gm In Sodium Chloride 0.9% 100 ml @ 25 mls/hr IVPB Q8HR [facility] Rx# :[id number] Sodium Chloride 0.9% 1, 800 000 ml @ 100 mls/hr IV . Q10H [facility] Rx#:[id number] metroNIDAZOLE-NS PMX 500 100 mg In Saline 1 100ml.bag @ 100 mls/hr IVPB Q6HR [facility] Rx#:[id number] Intake, IV Titration 100 180 Amount Potassium Chloride 20 meq 100 In Water For Injection 1 100ml.bag @ 50 mls/hr IVPB ONCE [facility] Rx#: [id number] Potassium Phosphate 10 100 mmol In Sodium Chloride 0 .9% 100 ml @ 50 mls/hr IV ONCE [facility] Rx#:[id number] Sodium Chloride 0.9% 1, 80 000 ml @ 20 mls/hr IV . Q24H [facility] Rx#:[id number] Output: Gastric Drainage 500 Drainage 10 Abdomen 10 Urine 570 032 9226 Other: Voiding Method Indwelling Catheter Indwelling Catheter Indwelling Catheter - Labs CBC & Chem 7: 06/28/20 06:49 06/28/20 06:49 Labs: Abnormal Lab Results - Last 24 Hours (Table) 06/28/20 06/28/20 06/28/20 Range/Units 00:19 06:09 06:49 WBC (3.8-10.6) k/uL MCHC (31.0-37.0) g/dL PT (9.0-12.0) sec INR (<1.2) ABG pH (7.35-7.45) ABG pCO2 (35-45) mmHg ABG pO2 (83-108) mmHg Chloride 115 H (98-107) mmol/L Carbon Dioxide 21 L (22-30) mmol/L BUN 40 H (9-20) mg/dL Glucose 160 H (74-99) mg/dL POC Glucose (mg/dL) 109 H 157 H (75-99) mg/dL Phosphorus 2.1 L (2.5-4.5) mg/dL 06/28/20 06/28/20 06/28/20 Range/Units 06:49 06:49 08:53 WBC 13.8 H (3.8-10.6) k/uL MCHC 30.3 L (31.0-37.0) g/dL PT 22.1 H (9.0-12.0) sec INR 2.3 H (<1.2) ABG pH 7.47 H (7.35-7.45) ABG pCO2 30 L (35-45) mmHg ABG pO2 70 L (83-108) mmHg Chloride (98-107) mmol/L Carbon Dioxide (22-30) mmol/L BUN (9-20) mg/dL Glucose (74-99) mg/dL POC Glucose (mg/dL) (75-99) mg/dL Phosphorus (2.5-4.5) mg/dL 06/28/20 Range/Units 11:25 WBC (3.8-10.6) k/uL MCHC (31.0-37.0) g/dL PT (9.0-12.0) sec INR (<1.2) ABG pH (7.35-7.45) ABG pCO2 (35-45) mmHg ABG pO2 (83-108) mmHg Chloride (98-107) mmol/L Carbon Dioxide (22-30) mmol/L BUN (9-20) mg/dL Glucose (74-99) mg/dL POC Glucose (mg/dL) 173 H (75-99) mg/dL Phosphorus (2.5-4.5) mg/dL Microbiology - Last 24 Hours (Table) 06/25/20 22:34 Blood Culture - Preliminary Blood No Growth after 48 hours 06/25/20 22:27 Blood Culture - Preliminary Blood No Growth after 48 hours 06/25/20 19:42 Gram Stain - Final Other - Other Wound Culture - Final <Tosha Lau - Last Filed: 07/05/20 21:35> Subjective Patient seen and evaluated. Additional documentation below. Patient was transfered from ICU to the floor and had oxygen desaturation secondary to volume overload status per nurse's report. Patient improved after being given Lasix and with diuresis. Patient was transferred back to the ICU for additional monitoring. Nasogastric tube with bilious output consistent with clinical ileus which is to be expected with patient's history of ruptured diverticulitis, emergent surgery and multiple medical comorbidities. Patient will continue with TPN including antibiotics. Evaluation for physical therapy occupational therapy including rehab in progress. Objective - Vital Signs Vital signs: Vital Signs Temp 98.1 F 07/05/20 15:05 Pulse 89 07/05/20 15:05 Resp 16 07/04/20 15:48 BP 115/81 07/05/20 15:05 Pulse Ox 93 L 07/05/20 15:05 Intake & Output 07/05/20 07/05/20 07/06/20 06:59 18:59 06:59 Intake Total 140 570 Output Total 620 Balance 140 -50 Weight 93.5 kg Intake: IV 100 Piperacillin-Tazobactam 3 100 .375 gm In Sodium Chloride 0.9% 100 ml @ 25 mls/hr IVPB Q8HR [facility] Rx# :[id number] Intake, IV Titration 140 120 Amount Piperacillin-Tazobactam 3 100 .375 gm In Sodium Chloride 0.9% 100 ml @ 25 mls/hr IVPB Q8HR [facility] Rx# :[id number] Sodium Chloride 0.9% 1, 40 120 000 ml @ 20 mls/hr IV . Q24H [facility] Rx#:[id number] Oral 350 Output: Drainage 20 Abdomen 20 Urine 600 Other: Voiding Method Toilet Urinal # Voids 2 2 # Bowel Movements 2 - Labs CBC & Chem 7: 07/05/20 06:28 07/04/20 07:37 Labs: Abnormal Lab Results - Last 24 Hours (Table) 07/05/20 07/05/20 Range/Units 06:28 06:28 RBC 3.41 L (4.30-5.90) m/uL Hgb 9.8 L (13.0-17.5) gm/dL Hct 29.8 L (39.0-53.0) % Lymphocytes # 0.8 L (1.0-4.8) k/uL PT 35.4 H (9.9-11.9) sec INR 3.47 H (0.90-1.11) Assessment and Plan (1) Sigmoid diverticulitis Status: Acute Code(s): K57.32 - DVTRCLI OF LG INT W/O PERFORATION OR ABSCESS W/O BLEEDING SNOMED Code(s): 968382417 (2) Prostate cancer Status: Acute Code(s): C61 - MALIGNANT NEOPLASM OF PROSTATE SNOMED Code(s): 869647552 (3) Atrial fibrillation Status: Acute Code(s): I48.91 - UNSPECIFIED ATRIAL FIBRILLATION SNOMED Code(s): 10197331 (4) Anticoagulated on Coumadin Status: Acute Code(s): Z79.01 - [facility] (CURRENT) USE OF ANTICOAGULANTS SNOMED Code(s): 82216990 (5) Acute tubular necrosis Status: Acute Code(s): N17.0 - ACUTE KIDNEY FAILURE WITH TUBULAR NECROSIS SNOMED Code(s): 79746583
[2020-06-28] MEDS: FAT EMULSION 20% 250 ML IV SCH ×2 (14:00→17:26)
--- NOTE | 2020-06-28 14:46 | P.PN ---
Subjective Progress Note Date: 06/28/20 Principal diagnosis: Acute perforated sigmoid diverticulitis and acute kidney injury 80-year-old white male patient who follows with Dr. Joel, has a past medical history of prostate cancer with prior surgery followed by radiation, hypertension, paroxysmal atrial fibrillation on Coumadin, chronic back pain, who came into the hospital on 06/22/2020 for evaluation of increasing lower abdominal pain of 2 day history with intermittent nausea and vomiting. Patient also complained of constipation. CT of the abdomen and pelvis showed extensive sigmoid diverticulosis with a segment of diverticulitis and some fat and fluid containing left inguinal hernia and few fluid-filled loops of distal ileum suggestive of mild ileus. Initially patient was started on antibiotics, surgic al consultation was obtained, patient was kept nothing by mouth. ID service was consulted, patient was being treated with the combination of Zosyn and Flagyl. Patient developed acute kidney injury likely from hypotension and ATN. Nephrology was consulted. Over the weekend patient has developed atrial fibrillation with RVR. Follow-up abdominal x-ray on 06/25/2020 showed pneumoperitoneum, requiring emergent surgical intervention. In the evening of 06/25/2020 patient underwent Holter laparotomy with sigmoid resection for perforated sigmoid diverticulitis, descending colostomy creation with rectal stump, reduction and repair of incarcerated left inguinal hernia, Luke's procedure for perforated sigmoid diverticulitis, drainage of sigmoid diverticula abscess, drainage of left inguinal canal abscess, and peritoneal lavage. Today is postoperative day #1. Patient is seen in the intensive care unit, patient came to the intensive care unit following his surgery last night extubated, on high flow oxygen at 8 L, and FiO2 is currently down to 3 L and pulse ox is between 97-100%. Patient is arousable, a bit drowsy, but slow to respond, inattentive. CAM-ICU was positive. Hemodynamically patient is stable. Currently on 0.9 normal saline at a rate of 100 ML per hour. No vasoactive drips, no other infusions. Remains nothing by mouth, slight abdominal tenderness, abdominal incision with a wound VAC in place the total of 80 ML drainage since surgery. Denies any difficulty breathing, breathing is comfortable, this morning's chest x-ray shows elevation of the right hemidiaphragm with the possibility of hemidiaphragmatic paralysis, hypoventilatory changes with either mild pulmonary vascular congestion or oral crowding of the vascular markings. Patchy left basilar atelectasis. Patient continues on Zosyn and Flagyl for antibiotic coverage. Today's labs showed white blood cell count of 14.9, hemoglobin of 12.9, INR is 1.8, sodium is 140, potassium is 4.2, chloride is 112, BUN of 46, creatinine is 1.25, patient is receiving Dilantin for pain and discomfort, appears to be in no acute distress. He is in atrial fibrillation with a controlled rate, he is having an echocar diogram done. Patient was reevaluated today on 06/27/20, remains in the ICU, on 2 L nasal cannula, O2 saturations 96%. Patient is intermittently confused, but this morning he seems to be very appropriate. He is on TPN at 30 mL per hour, IV fluid is at 100 mL per hour. Patient is in atrial fibrillation with RVR rate of 1 24/m. That is being addressed by cardiology on the case. Patient is posto perative day #2 underwent exploratory laparotomy, sigmoid resection and colostomy. Labs were all reviewed, CBC is relatively unremarkable. Electrolytes are normal potassium is a bit low at 3.4 being corrected as per protocol. INR is 2.4, therapeutic. Chest x-ray showed minimal right pleural effusion with elevation of the right hemidiaphragm, and streaky atelectasis at the left base. Patient was evaluated today on 06/28/20, patient was transferred back to the ICU early this morning mostly because he was noted by the nurse to have increased work of breathing, and increased abdominal distention with increased abdominal girth. Patient was brought down to the ICU, chest x-ray showed mostly bibasilar atelectasis with significant elevation of the left hemidiaphragm along with the right hemidiaphragm and there was significant large stomach bubble. Nasogastric tube was placed, and significant amount of bilious material over 1 L drained within a few minutes from the stomach. Patient felt a bit nauseated but felt better after the drainage of the stomach. Chest x-ray showed no evidence of pneumonia or evidence of congestive heart failure. ABG showed a pO2 of 70 pCO2 30 pH of 7.47. Basic metabolic profile was normal CBC was relatively normal x- rays of the abdomen and pelvis showed significant dilated bowel loops, and possible ileus or bowel obstruction. This is being addressed by surgery on the case. There was no evidence of free air. Objective - Vital Signs Vital signs: Vital Signs Temp 98.1 F 06/28/20 12:00 Pulse 99 06/28/20 14:00 Resp 14 06/28/20 14:00 BP 153/93 06/28/20 14:00 Pulse Ox 96 06/28/20 14:00 Intake & Output 06/27/20 06/28/20 06/28/20 18:59 06:59 18:59 Intake Total 1340 560 Output Total 408 921 6858 Balance 855 830 -6804 Weight 93.5 kg 93.5 kg Intake: IV 1240 360 Mvi, Adult No.4 with Vit 240 360 K 10 ml Trace (Conc-1Ml/ Dose) 1 ml Parenteral Electrolytes 20 ml In Amino Acid 5%-D15w 1,000 ml @ 30 mls/hr IV .Q24H [facility] Rx#:[id number] Piperacillin-Tazobactam 3 100 .375 gm In Sodium Chloride 0.9% 100 ml @ 25 mls/hr IVPB Q8HR [facility] Rx# :[id number] Sodium Chloride 0.9% 1, 800 000 ml @ 100 mls/hr IV . Q10H [facility] Rx#:[id number] metroNIDAZOLE-NS PMX 500 100 mg In Saline 1 100ml.bag @ 100 mls/hr IVPB Q6HR [facility] Rx#:[id number] Intake, IV Titration 100 200 Amount Potassium Chloride 20 meq 100 In Water For Injection 1 100ml.bag @ 50 mls/hr IVPB ONCE [facility] Rx#: [id number] Potassium Phosphate 10 100 mmol In Sodium Chloride 0 .9% 100 ml @ 50 mls/hr IV ONCE [facility] Rx#:[id number] Sodium Chloride 0.9% 1, 100 000 ml @ 20 mls/hr IV . Q24H [facility] Rx#:[id number] Output: Gastric Drainage 500 Drainage 10 Abdomen 10 Urine 199 404 5967 Other: Voiding Method Indwelling Catheter Indwelling Catheter Indwelling Catheter - Exam GENERAL EXAM: Revealed an 80-year-old white male in no distress. On few liters nasal cannula. HEENT: PERRLA, EOMI, neck, neck masses, no JVD, no stridor CHEST: No chest wall deformity. Symmetrical expansion. LUNGS: Symmetrical chest expansion, diminished breath sounds at the bases no rhonchi no wheezes CVS: Irregular irregular rhythm., normal S1 and S2, no gallops, no murmurs, no rubs ABDOMEN: Distended lightly tender. No hepatosplenomegaly, no active bowel sounds., no guarding or rigidity. empty colostomy in place, EXTREMITIES: No clubbing, no edema, no cyanosis, 2+ pulses and upper and lower extremities. MUSCULOSKELETAL: Muscle strength and tone normal. SPINE: No scoliosis or deformity SKIN: No rashes CENTRAL NERVOUS SYSTEM: Slightly drowsy and oriented -1. No focal deficits, tone is normal in all 4 extremities. PSYCHIATRIC: Slightly drowsy and oriented -1. Appropriate affect. Intact judgment and insight. - Labs CBC & Chem 7: 06/28/20 06:49 06/28/20 06:49 Labs: Abnormal Lab Results - Last 24 Hours (Table) 06/28/20 06/28/20 06/28/20 Range/Units 00:19 06:09 06:49 WBC (3.8-10.6) k/uL MCHC (31.0-37.0) g/dL PT (9.0-12.0) sec INR (<1.2) ABG pH (7.35-7.45) ABG pCO2 (35-45) mmHg ABG pO2 (83-108) mmHg Chloride 115 H (98-107) mmol/L Carbon Dioxide 21 L (22-30) mmol/L BUN 40 H (9-20) mg/dL Glucose 160 H (74-99) mg/dL POC Glucose (mg/dL) 109 H 157 H (75-99) mg/dL Phosphorus 2.1 L (2.5-4.5) mg/dL 06/28/20 06/28/20 06/28/20 Range/Units 06:49 06:49 08:53 WBC 13.8 H (3.8-10.6) k/uL MCHC 30.3 L (31.0-37.0) g/dL PT 22.1 H (9.0-12.0) sec INR 2.3 H (<1.2) ABG pH 7.47 H (7.35-7.45) ABG pCO2 30 L (35-45) mmHg ABG pO2 70 L (83-108) mmHg Chloride (98-107) mmol/L Carbon Dioxide (22-30) mmol/L BUN (9-20) mg/dL Glucose (74-99) mg/dL POC Glucose (mg/dL) (75-99) mg/dL Phosphorus (2.5-4.5) mg/dL 06/28/20 Range/Units 11:25 WBC (3.8-10.6) k/uL MCHC (31.0-37.0) g/dL PT (9.0-12.0) sec INR (<1.2) ABG pH (7.35-7.45) ABG pCO2 (35-45) mmHg ABG pO2 (83-108) mmHg Chloride (98-107) mmol/L Carbon Dioxide (22-30) mmol/L BUN (9-20) mg/dL Glucose (74-99) mg/dL POC Glucose (mg/dL) 173 H (75-99) mg/dL Phosphorus (2.5-4.5) mg/dL Microbiology - Last 24 Hours (Table) 06/25/20 22:34 Blood Culture - Preliminary Blood No Growth after 48 hours 06/25/20 22:27 Blood Culture - Preliminary Blood No Growth after 48 hours 06/25/20 19:42 Gram Stain - Final Other - Other Wound Culture - Final Assessment and Plan Assessment: #1. Acute hypoxic respiratory failure due to postoperative hypoventilation, along with postoperative atelectasis, expected, improving presently based on the chest x-ray today #2. Perforated sigmoid diverticulitis, with pneumoperitoneum, incarcerated left inguinal hernia, status post exploratory laparotomy with sigmoid resection, descending colostomy creation with rectal stump, reduction and repair of incarcerated left inguinal hernia, Luke's procedure, drainage of sigmoid diverticular abscess, drainage of left inguinal canal abscess and peritoneal lavage, placement of wound VAC in the abdominal wall #3. Acute intra-abdominal sepsis related to the above, on Zosyn and Flagyl for antibiotic coverage #4. Acute kidney injury related to acute sepsis, ATN, renal function is improving, and nephrology is on the case #5. A. fib with RVR, the rate is currently better controlled, remains off anticoagulation other than prophylactic doses of heparin #6. Hypertension, history of #7. History of prostate cancer, history of surgical resection followed by radiation #8. Osteoarthritis #9 suspect ileus or bowel obstruction Recommendation: Nasogastric tube was ordered and placed on low intermittent suction. Continue incentive spirometry. Continue present meds as listed. Continue TPN. Continue GI and DVT prophylaxis. Cardiology is addressing his atrial fibrillation with RVR Monitor in the ICU for the next 24 hours. We'll continue to follow Time with Patient: Less than 30
[2020-06-28] MEDS ORDERED: 1: MVI, ADULT NO.4 WITH VIT K 10 ML, TRACE (CONC-1ML/DOSE) 1 ML in AMINO ACID 5%-D15W+LY IV SCH ×3 (16:00)
[2020-06-28 16:25] LABS: Glucose,Whole Blood 139 mg/dL (75-99)
[2020-06-28] MEDS: MVI, ADULT NO.4 WITH VIT K 10 ML, TRACE (CONC-1ML/DOSE) 1 ML in AMINO ACID 5%-D15W+LYTE... IV SCH ×3 (17:25)
[2020-06-28] MEDS ORDERED: WARFARIN 2 MG TAB PO ONE (18:00)
[2020-06-28] MEDS: SODIUM CHLORIDE 0.9% 1,000 ML IV SCH (18:41)
--- NOTE | 2020-06-28 19:37 | P.PN ---
Progress Note - Text Progress Note Date: 06/28/20 Chief Complaint: Abdominal pain History of presenting complaint: This is a very pleasant 80-year-old patient of Dr. Jeol. Chronic stable medical conditions include paroxysmal atrial fibrillation on Coumadin, hypertension, prostate cancer treated by surgery and followed by radiation treatment a year later, back surgery. The last 2 or 3 days patient with having increasing lower abdominal pain started off with nausea after he presented today also vomited couple of times. Denied any fever and chills. Patient baseline normally has 2 or 3 bowel movements a day. Last bowel movement was 2 days ago. Abdomen felt distended. Computed tomography scan of the abdomen that showed extensive sigmoid diverticulosis with asymmetry with a segment of diverticulitis and some fat and fluid containing left inguinal hernia and few fluid-filled loops of distal ileum. Admitted with acute sigmoid diverticular to severe, with ileus. Coumadin toxicity for which received vitamin K.on June 25 evening patient was taken to the OR by Dr. Kwok. Found to have a perforated sigmoid diverticulitis with stool and pus in the abdomen.patient underwent sigmoid resection followed by colostomy creation and repair of incarcerated left inguinal hernia/Luke's procedure. Pericardial large. Drain was placed. An incisional wound VAC was placed. Postprocedure, admitted to the ICU. Started on IV TPN and lipids. On IV Zosyn and Flagyl. Patient was moved out of the ICU. Today-this morning patient noted to become short of breath. More distended. Moved back to the ICU. NG tube was placed. 1 L of bilious fluid was drained. Review of systems: Was done for constitutional, cardiovascular, GI, pulmonary. relevant finding as above Active Medications Albuterol/Ipratropium (Ipratropium-Albuterol 3 Ml Neb) 3 ml INHALATION RT-Q4H [facility] Last Admin: 06/28/20 15:03 Dose: 3 ml Documented by: Albuterol/Ipratropium (Ipratropium-Albuterol 3 Ml Neb) 3 ml INHALATION RT-QID PRN PRN Reason: Shortness Of Breath Or Wheezing Alvimopan (Alvimopan 12 Mg Capsule) 12 mg PO BID [facility] Stop: 07/05/20 09:01 Amlodipine Besylate (Amlodipine 10 Mg Tab) 10 mg PO DAILY [facility] Last Admin: 06/28/20 08:29 Dose: 10 mg Documented by: Hydralazine HCl (Hydralazine Hcl 20 Mg/Ml 1 Ml Vial) 15 mg IVP Q4HR PRN PRN Reason: Blood Pressure - High Last Admin: 06/28/20 16:28 Dose: 15 mg Documented by: Piperacillin Sod/Tazobactam (Sod 3.375 gm/ Sodium Chloride) 100 mls @ 25 mls/hr IVPB Q8HR [facility] Last Admin: 06/28/20 16:28 Dose: 25 mls/hr Documented by: Metronidazole 500 mg/ IV (Solution) 100 mls @ 100 mls/hr IVPB Q6HR [facility] Last Admin: 06/28/20 18:41 Dose: 100 mls/hr Documented by: Sodium Chloride (Saline 0.9%) 1,000 mls @ 20 mls/hr IV .Q24H [facility] Last Admin: 06/28/20 18:41 Dose: Not Given Documented by: Parenteral Vitamin Supplement 10 ml/ Chromium/Copper/Manganese/Seleni/Zn 1 ml/Amino Ac/Electrol/Dextrose/Calcium 1,011 mls @ 55 mls/hr IV .[id number] [facility] Last Admin: 06/28/20 17:25 Dose: 55 mls/hr Documented by: Fat Emulsion Intravenous (Lipids 20%) 250 mls @ 20.833 mls/hr IV MoWeFr@1600 [facility] Last Admin: 06/28/20 17:26 Dose: 20.833 mls/hr Documented by: Insulin Aspart (Insulin Aspart (Novolog) 100 Unit/Ml Vial) 0 unit SQ Q6H [facility]; Protocol Last Admin: 06/28/20 16:34 Dose: 1 unit Documented by: Metoprolol Tartrate (Metoprolol Tartrate 50 Mg Tab) 50 mg PO BID [facility] Last Admin: 06/28/20 08:28 Dose: 50 mg Documented by: Miscellaneous Information (Potassium Replacement Protocol 1 Each Misc) 1 each MISCELLANE DAILY PRN; Protocol PRN Reason: Per Protocol Miscellaneous Information (Warfarin Per Pharmacy) 0 each MISCELLANE DIRECTED PRN PRN Reason: ANTICOAG Naloxone HCl (Naloxone 0.4 Mg/Ml 1 Ml Vial) 0.2 mg IV Q2M PRN PRN Reason: Opioid Reversal Ondansetron HCl (Ondansetron 4 Mg/2 Ml Vial) 4 mg IVP Q6HR PRN PRN Reason: Nausea And Vomiting Last Admin: 06/27/20 08:40 Dose: 4 mg Documented by: Pantoprazole Sodium (Pantoprazole 40 Mg/10 Ml Vial) 40 mg IVP DAILY [facility] Last Admin: 06/28/20 08:29 Dose: 40 mg Documented by: Prochlorperazine Maleate (Prochlorperazine 10 Mg Tab) 10 mg PO Q6HR PRN PRN Reason: Nausea And Vomiting Trazodone HCl (Trazodone Hcl 50 Mg Tab) 50 mg PO HS [facility] Last Admin: 06/27/20 20:56 Dose: 50 mg Documented by: Physical examination: VITAL SIGNS: 98.1, 101, 18, 156/100, 97% on 4 L GENERAL: Laying in bed, tired EYES: Pupils equal. Conjunctiva normal. HEENT: External appearance of nose and ears normal, oral cavity dry, NG tube to suction NECK: JVD not raised; masses not palpable. HEART: First and second heart sounds are normal; no edema. LUNGS: Respiratory rate increased; decreased breath sounds. ABDOMEN: Soft,tender, DEJON drain, incisional wound VAC, no mass palpable, scrotal swelling PSYCH: Tired INVESTIGATIONS, reviewed in the clinical context: White count 13.8 hemoglobin 13 platelets 293 potassium 3.7 creatinine 0.90 Abdominal x-ray film dilated loops of bowel Previous testing White count 15.4 hemoglobin 13.5 platelets 196 INR 4.8 potassium 3.7 creatinine 1.06 Computed tomography scan of the abdomen pelvis-sigmoid diverticulosis with diverticulitis. No free air. Some air-fluid levels in the distal ileum Abdominal x-ray-06/25/2020 film personally reviewed by me shows free air Assessment: -Acute severe sigmoid diverticulitis-with perforation-leading to sigmoid resection with Iwona's procedure and a colostomy. Patient has DEJON drain -Acute postop ileus causing this pretty compromise, followed by NG tube to suction -Secondary peritonitis secondary to ruptured viscus, causing sepsis -repair- Incarcerated left inguinal hernia -Acute kidney injury likely from hypotension-worsening -Colonic diverticulosis -Paroxysmal atrial fibrillation chronically on Coumadin -Coumadin monitoring with toxicity-give vitamin K.-Corrected -Prostate cancer with a history of surgery and radiation treatment -Hypoalbuminemia-reactive Plan: -Patient moved back to the ICU. patient getting IV TPN and lipids. IV Flagyl, IV Zosyn. NG tube to suction. Follow closely.
[2020-06-28] MEDS: ALVIMOPAN 12 MG CAPSULE PO SCH (20:03)
[2020-06-28] MEDS: traZODone HCL 50 MG TAB PO SCH (21:12)
[2020-06-28 22:26] LABS: Glucose,Whole Blood 150 mg/dL (75-99)
--- NOTE | 2020-06-28 22:42 | PN ---
PROGRESS NOTE DATE OF SERVICE: 06/28/2020 REASON FOR FOLLOWUP: Secondary peritonitis from perforated sigmoid diverticulitis. INTERVAL HISTORY: The patient has been transferred back to the ICU because of worsening respiratory status this morning. The patient was noted pulmonary edema, has been given IV Lasix and did have improvement subsequently in his respiratory status. The patient denies having any chest pain or cough. Denies any worsening abdominal pain. No nausea, no vomiting. No output in the colostomy bag. PHYSICAL EXAMINATION: Blood pressure 135/99 with a pulse of 114, temperature 97.6. He is 95% on 4 L nasal cannula. General description is an elderly male lying in bed in no distress. RESPIRATORY SYSTEM: Unlabored breathing with decreased breath sounds at the base. No wheeze. HEART: S1, S2. Regular rate and rhythm. ABDOMEN: Soft. Mildly tender. No guarding or rigidity. LABS: Hemoglobin is 13, white count of 13.8. BUN of 40, creatinine 0.90. Abdominal culture is mostly with anaerobes. DIAGNOSTIC IMPRESSION AND PLAN: Patient with an abdominal abscess from a perforated sigmoid diverticulitis, status post diverting colostomy, with abdominal cultures currently showing mostly anaerobes. Patient is covered with Zosyn. That will be continued and we will monitor his clinical course closely. MMODL / IJN: [id number] /
[2020-06-29] MEDS: PIPERACILLIN-TAZOBACTAM 3.375 GM in SODIUM CHLORIDE 0.9% 100 ML IVPB SCH ×3 (00:27→18:37)
[2020-06-29 03:56] LABS: Glucose,Whole Blood 151 mg/dL (75-99)
[2020-06-29] MEDS: INSULIN ASPART (NovoLOG) 100 UNIT/ML VIAL SQ SCH ×3 (03:57→18:37)
[2020-06-29] MEDS: IPRATROPIUM-ALBUTEROL 3 ML NEB INHALATION SCH ×5 (04:04→19:33)
[2020-06-29] MEDS: metroNIDAZOLE-NS PMX 500 MG in SALINE 1 100ML.BAG IVPB SCH ×3 (06:00→18:37)
[2020-06-29] MEDS: hydrALAZINE HCL 20 MG/ML 1 ML VIAL IVP PRN (06:21)
--- NOTE | 2020-06-29 06:35 | XR ---
EXAMINATION TYPE: XR chest 1V portable DATE OF EXAM: 06/29/2020 CLINICAL HISTORY: Difficulty breathing progress study. TECHNIQUE: Single AP portable semiupright view of the chest is obtained. COMPARISON: Chest x-ray from one day earlier and older studies. FINDINGS: Stable right-sided PICC line. Persistent low lung volumes with elevated right hemidiaphrag m and bibasilar opacities. Cardiac silhouette size stable and upper limits of normal from one day ear lier. Multilevel spurring in the spine redemonstrated. Suspect interval removal of overlying vertical skin linh. IMPRESSION: Persistent low lung volumes and elevated right hemidiaphragm. Persistent small to tiny bi lateral pleural effusions and associated bibasilar acute atelectasis and/or infiltrate. No significan t change from one day earlier.
[2020-06-29 07:13] LABS: Calcium 8.3 mg/dL (8.4-10.2); Phosphorus 2.2 mg/dL (2.5-4.5); Potassium 3.1 mmol/L (3.5-5.1)
[2020-06-29 07:15] LABS: INR 2.3 (<1.2)
[2020-06-29 07:49] LABS: Basophils % (A) 0 %; Eosinophils # (A) 0.1 k/uL (0-0.7); Eosinophils % (A) 1 %; HCT 44.6 % (39.0-53.0); HGB 13.6 gm/dL (13.0-17.5); Hypochromasia Slight; Lymphocytes # (A) 0.5 k/uL (1.0-4.8); Lymphocytes % (A) 4 %; MCH 27.1 pg (25.0-35.0); MCHC 30.5 g/dL (31.0-37.0); MCV 88.8 fL (80.0-100.0); Mean Platelet Volume 7.4; Monocytes # (A) 0.7 k/uL (0-1.0); Monocytes % (A) 6 %; Neutrophils # (A) 11.7 k/uL (1.3-7.7); Neutrophils % (A) 88 %; Platelet Count 268 k/uL (150-450); RBC 5.02 m/uL (4.30-5.90); RDW 14.7 % (11.5-15.5); WBC 13.4 k/uL (3.8-10.6)
--- NOTE | 2020-06-29 07:57 | P.PN ---
Subjective Progress Note Date: 06/29/20 Principal diagnosis: Long-standing persistent atrial fibrillation This is a pleasant 78-year-old gentleman with history of long-standing persistent atrial fibrillation as well as hypertension who developed sigmoid diverticulitis and pneumoperitoneum and he underwent surgery. We consulted to see the patient for the management of atrial fibrillation and also for preop cardiac assessment before noncardiac surgery. The patient was seen today June [id number]. He is in atrial fibrillation with slightly uncontrolled heart rate. I'm going to increase the dose of metoprolol to get the heart rate under good control. Beside that he is on oral anticoagulation with Coumadin which we are going to continue. We will continue following up with the patient Objective - Vital Signs Vital signs: Vital Signs Temp 97.8 F 06/29/20 04:00 Pulse 112 H 06/29/20 07:00 Resp 15 06/29/20 07:00 BP 125/97 06/29/20 07:00 Pulse Ox 95 06/29/20 07:00 Intake & Output 06/28/20 06/29/20 06/29/20 18:59 06:59 18:59 Intake Total 1902 492 21 Output Total 3260 1190 45 Balance -1358 -698 -24 Weight 93.5 kg Intake: IV 460 200 Mvi, Adult No.4 with Vit 360 K 10 ml Trace (Conc-1Ml/ Dose) 1 ml Parenteral Electrolytes 20 ml In Amino Acid 5%-D15w 1,000 ml @ 30 mls/hr IV .Q24H [facility] Rx#:[id number] Piperacillin-Tazobactam 3 100 .375 gm In Sodium Chloride 0.9% 100 ml @ 25 mls/hr IVPB Q8HR [facility] Rx# :[id number] metroNIDAZOLE-NS PMX 500 100 100 mg In Saline 1 100ml.bag @ 100 mls/hr IVPB Q6HR [facility] Rx#:[id number] Intake, IV Titration 1442 292 21 Amount Fat Emulsion 20% 250 ml @ 42 252 21 20.833 mls/hr IV MoWeFr@ 1600 [facility] Rx#:[id number] Parenteral Electrolytes 1020 20 ml In Amino Acid 5%- D15w 1,000 ml @ 95 mls/hr IV .BY DURATION [facility] Rx#: [id number] Piperacillin-Tazobactam 3 100 .375 gm In Sodium Chloride 0.9% 100 ml @ 25 mls/hr IVPB Q8HR [facility] Rx# :[id number] Potassium Phosphate 10 100 mmol In Sodium Chloride 0 .9% 100 ml @ 50 mls/hr IV ONCE [facility] Rx#:[id number] Sodium Chloride 0.9% 1, 180 40 000 ml @ 20 mls/hr IV . Q24H [facility] Rx#:[id number] Output: Gastric Drainage 600 250 Drainage 10 155 Abdomen 10 155 Urine 2650 785 45 Other: Voiding Method Indwelling Catheter Indwelling Catheter - Constitutional General appearance: Present: no acute distress - Respiratory Respiratory: bilateral: diminished - Cardiovascular Rhythm: irregularly irregular Heart sounds: normal: S1, S2 - Labs CBC & Chem 7: 06/29/20 06:35 06/29/20 06:35 Labs: Abnormal Lab Results - Last 24 Hours (Table) 06/28/20 06/28/20 06/28/20 Range/Units 06:49 08:53 11:25 WBC (3.8-10.6) k/uL MCHC (31.0-37.0) g/dL Neutrophils # (1.3-7.7) k/uL Lymphocytes # (1.0-4.8) k/uL PT 22.1 H (9.0-12.0) sec INR 2.3 H (<1.2) ABG pH 7.47 H (7.35-7.45) ABG pCO2 30 L (35-45) mmHg ABG pO2 70 L (83-108) mmHg Potassium (3.5-5.1) mmol/L Chloride (98-107) mmol/L BUN (9-20) mg/dL Glucose (74-99) mg/dL POC Glucose (mg/dL) 173 H (75-99) mg/dL Calcium (8.4-10.2) mg/dL Phosphorus (2.5-4.5) mg/dL 06/28/20 06/28/20 06/29/20 Range/Units 16:24 22:24 03:54 WBC (3.8-10.6) k/uL MCHC (31.0-37.0) g/dL Neutrophils # (1.3-7.7) k/uL Lymphocytes # (1.0-4.8) k/uL PT (9.0-12.0) sec INR (<1.2) ABG pH (7.35-7.45) ABG pCO2 (35-45) mmHg ABG pO2 (83-108) mmHg Potassium (3.5-5.1) mmol/L Chloride (98-107) mmol/L BUN (9-20) mg/dL Glucose (74-99) mg/dL POC Glucose (mg/dL) 139 H 150 H 151 H (75-99) mg/dL Calcium (8.4-10.2) mg/dL Phosphorus (2.5-4.5) mg/dL 06/29/20 06/29/20 06/29/20 Range/Units 06:35 06:35 06:35 WBC 13.4 H (3.8-10.6) k/uL MCHC 30.5 L (31.0-37.0) g/dL Neutrophils # 11.7 H (1.3-7.7) k/uL Lymphocytes # 0.5 L (1.0-4.8) k/uL PT 22.0 H (9.0-12.0) sec INR 2.3 H (<1.2) ABG pH (7.35-7.45) ABG pCO2 (35-45) mmHg ABG pO2 (83-108) mmHg Potassium 3.1 L (3.5-5.1) mmol/L Chloride 113 H (98-107) mmol/L BUN 42 H (9-20) mg/dL Glucose 150 H (74-99) mg/dL POC Glucose (mg/dL) (75-99) mg/dL Calcium 8.3 L (8.4-10.2) mg/dL Phosphorus 2.2 L (2.5-4.5) mg/dL Microbiology - Last 24 Hours (Table) 06/28/20 13:20 Gram Stain - Preliminary Peritoneal Fluid Body Fluid Culture - Preliminary 06/25/20 22:27 Blood Culture - Preliminary Blood No Growth after 72 hours 06/25/20 22:34 Blood Culture - Preliminary Blood No Growth after 72 hours 06/28/20 13:20 Sputum Culture - Preliminary Sputum 06/25/20 19:42 Anaerobic Culture - Final Other - Other Anaerobic Gm Positive Bacill Anaerobic Gm Negative Bacilli Anaerobic Gram Positive Cocci Assessment and Plan Assessment: Assessment #1 sigmoid diverticulitis and pneumoperitoneum #2 long-standing persistent atrial fibrillation #3 multiple comorbid conditions Plan #1 increase the dose of metoprolol #2 start the patient on oral anticoagulation #3 follow-up with the patient
[2020-06-29] MEDS: POTASSIUM CHLORIDE 20 MEQ in WATER FOR INJECTION 1 100ML.BAG IVPB SCH ×4 (08:38→21:18)
[2020-06-29] MEDS: PANTOPRAZOLE 40 MG/10 ML VIAL IVP SCH (08:39)
[2020-06-29] MEDS: ALVIMOPAN 12 MG CAPSULE PO SCH ×2 (09:42→20:09)
[2020-06-29] MEDS: amLODIPine 10 MG TAB PO SCH (09:42)
[2020-06-29] MEDS ORDERED: FUROSEMIDE 10 MG/ML 4 ML VIAL IV STA (10:52)
[2020-06-29] MEDS: METOPROLOL TARTRATE 5 MG/5 ML VIAL IVP SCH ×2 (10:56→18:36)
--- NOTE | 2020-06-29 11:36 | P.PN ---
Subjective patient is seen in follow-up for acute kidney injury. renal function back to baseline. Currently maintained on PPN. underwent exploratory laparotomy with sigmoid resection for perforated sigmoid diverticulitis on June 25. hemodynamically stable. feels better today. Nonoliguric. NG tube removed. Vital signs are stable. General: The patient appeared well nourished and normally developed. HEENT: Head exam is unremarkable. Neck is without jugular venous distension. LUNGS: Breath sounds decreased. HEART: irregular rate and rhythm. ABDOMEN: surgical abdomen. Mild tenderness. EXTREMITITES: 2+ edema. Objective - Vital Signs Vital signs: Vital Signs Temp 97.8 F 06/29/20 08:00 Pulse 106 H 06/29/20 11:26 Resp 16 06/29/20 10:00 BP 135/110 06/29/20 10:00 Pulse Ox 95 06/29/20 10:00 Intake & Output 06/28/20 06/29/20 06/29/20 18:59 06:59 18:59 Intake Total 1902 492 351 Output Total 3260 1190 245 Balance -1358 -698 106 Weight 93.5 kg Intake: IV 460 200 330 0.9 20 Mvi, Adult No.4 with Vit 110 K 10 ml Trace (Conc-1Ml/ Dose) 1 ml In Amino Acid 5%-D15w+Lytes*E* 1,000 ml @ 55 mls/hr IV .[id number] [facility] Rx#:[id number] Mvi, Adult No.4 with Vit 360 K 10 ml Trace (Conc-1Ml/ Dose) 1 ml Parenteral Electrolytes 20 ml In Amino Acid 5%-D15w 1,000 ml @ 30 mls/hr IV .Q24H [facility] Rx#:[id number] Piperacillin-Tazobactam 3 100 100 .375 gm In Sodium Chloride 0.9% 100 ml @ 25 mls/hr IVPB Q8HR [facility] Rx# :[id number] Potassium Chloride 20 meq 100 In Water For Injection 1 100ml.bag @ 50 mls/hr IVPB Q2H [facility] Rx#: [id number] metroNIDAZOLE-NS PMX 500 100 100 mg In Saline 1 100ml.bag @ 100 mls/hr IVPB Q6HR [facility] Rx#:[id number] Intake, IV Titration 1442 292 21 Amount Fat Emulsion 20% 250 ml @ 42 252 21 20.833 mls/hr IV MoWeFr@ 1600 [facility] Rx#:[id number] Parenteral Electrolytes 1020 20 ml In Amino Acid 5%- D15w 1,000 ml @ 95 mls/hr IV .BY DURATION [facility] Rx#: [id number] Piperacillin-Tazobactam 3 100 .375 gm In Sodium Chloride 0.9% 100 ml @ 25 mls/hr IVPB Q8HR [facility] Rx# :[id number] Potassium Phosphate 10 100 mmol In Sodium Chloride 0 .9% 100 ml @ 50 mls/hr IV ONCE [facility] Rx#:[id number] Sodium Chloride 0.9% 1, 180 40 000 ml @ 20 mls/hr IV . Q24H [facility] Rx#:[id number] Output: Gastric Drainage 600 250 Drainage 10 155 90 Abdomen 10 155 90 Urine 2650 785 155 Other: Voiding Method Indwelling Catheter Indwelling Catheter Indwelling Catheter - Labs CBC & Chem 7: 06/29/20 06:35 06/29/20 06:35 Labs: Abnormal Lab Results - Last 24 Hours (Table) 06/28/20 06/28/20 06/29/20 Range/Units 16:24 22:24 03:54 WBC (3.8-10.6) k/uL MCHC (31.0-37.0) g/dL Neutrophils # (1.3-7.7) k/uL Lymphocytes # (1.0-4.8) k/uL PT (9.0-12.0) sec INR (<1.2) Potassium (3.5-5.1) mmol/L Chloride (98-107) mmol/L BUN (9-20) mg/dL Glucose (74-99) mg/dL POC Glucose (mg/dL) 139 H 150 H 151 H (75-99) mg/dL Calcium (8.4-10.2) mg/dL Phosphorus (2.5-4.5) mg/dL 06/29/20 06/29/20 06/29/20 Range/Units 06:35 06:35 06:35 WBC 13.4 H (3.8-10.6) k/uL MCHC 30.5 L (31.0-37.0) g/dL Neutrophils # 11.7 H (1.3-7.7) k/uL Lymphocytes # 0.5 L (1.0-4.8) k/uL PT 22.0 H (9.0-12.0) sec INR 2.3 H (<1.2) Potassium 3.1 L (3.5-5.1) mmol/L Chloride 113 H (98-107) mmol/L BUN 42 H (9-20) mg/dL Glucose 150 H (74-99) mg/dL POC Glucose (mg/dL) (75-99) mg/dL Calcium 8.3 L (8.4-10.2) mg/dL Phosphorus 2.2 L (2.5-4.5) mg/dL Microbiology - Last 24 Hours (Table) 06/28/20 13:20 Gram Stain - Preliminary Sputum Sputum Culture - Preliminary 06/28/20 13:20 Gram Stain - Preliminary Peritoneal Fluid Body Fluid Culture - Preliminary 06/25/20 22:27 Blood Culture - Preliminary Blood No Growth after 72 hours 06/25/20 22:34 Blood Culture - Preliminary Blood No Growth after 72 hours 06/25/20 19:42 Anaerobic Culture - Final Other - Other Anaerobic Gm Positive Bacill Anaerobic Gm Negative Bacilli Anaerobic Gram Positive Cocci Assessment and Plan Plan: assessment: 1. Acute kidney injury mostly prerenal improving with IV hydration. Creatinine 0.9 today. 2. Perforated diverticulitis with pneumoperitoneum status post exploratory laparotomy on June 25. 3. atrial fibrillation maintained on metoprolol. 4. Benign hypertension. blood pressure on the higher side. Partially due to pain. 5. Hypokalemia from poor intake 10 diuresis. magnesium normal. 6. Hypophosphatemia from poor intake. 7. Volume overload. better. 8. Acute hypoxic respiratory failure. Plan: Lasix 40 mg IV once today. avoid nephrotoxins. replace potassium. 80 mEq today. Phosphorus to be replaced per protocol
--- NOTE | 2020-06-29 13:04 | P.PN ---
Subjective Progress Note Date: 06/29/20 Principal diagnosis: Acute perforated sigmoid diverticulitis and acute kidney injury 80-year-old white male patient who follows with Dr. Joel, has a past medical history of prostate cancer with prior surgery followed by radiation, hypertension, paroxysmal atrial fibrillation on Coumadin, chronic back pain, who came into the hospital on 06/22/2020 for evaluation of increasing lower abdominal pain of 2 day history with intermittent nausea and vomiting. Patient also complained of constipation. CT of the abdomen and pelvis showed extensive sigmoid diverticulosis with a segment of diverticulitis and some fat and fluid containing left inguinal hernia and few fluid-filled loops of distal ileum suggestive of mild ileus. Initially patient was started on antibiotics, surgic al consultation was obtained, patient was kept nothing by mouth. ID service was consulted, patient was being treated with the combination of Zosyn and Flagyl. Patient developed acute kidney injury likely from hypotension and ATN. Nephrology was consulted. Over the weekend patient has developed atrial fibrillation with RVR. Follow-up abdominal x-ray on 06/25/2020 showed pneumoperitoneum, requiring emergent surgical intervention. In the evening of 06/25/2020 patient underwent Holter laparotomy with sigmoid resection for perforated sigmoid diverticulitis, descending colostomy creation with rectal stump, reduction and repair of incarcerated left inguinal hernia, Luke's procedure for perforated sigmoid diverticulitis, drainage of sigmoid diverticula abscess, drainage of left inguinal canal abscess, and peritoneal lavage. Today is postoperative day #1. Patient is seen in the intensive care unit, patient came to the intensive care unit following his surgery last night extubated, on high flow oxygen at 8 L, and FiO2 is currently down to 3 L and pulse ox is between 97-100%. Patient is arousable, a bit drowsy, but slow to respond, inattentive. CAM-ICU was positive. Hemodynamically patient is stable. Currently on 0.9 normal saline at a rate of 100 ML per hour. No vasoactive drips, no other infusions. Remains nothing by mouth, slight abdominal tenderness, abdominal incision with a wound VAC in place the total of 80 ML drainage since surgery. Denies any difficulty breathing, breathing is comfortable, this morning's chest x-ray shows elevation of the right hemidiaphragm with the possibility of hemidiaphragmatic paralysis, hypoventilatory changes with either mild pulmonary vascular congestion or oral crowding of the vascular markings. Patchy left basilar atelectasis. Patient continues on Zosyn and Flagyl for antibiotic coverage. Today's labs showed white blood cell count of 14.9, hemoglobin of 12.9, INR is 1.8, sodium is 140, potassium is 4.2, chloride is 112, BUN of 46, creatinine is 1.25, patient is receiving Dilantin for pain and discomfort, appears to be in no acute distress. He is in atrial fibrillation with a controlled rate, he is having an echocar diogram done. Patient was reevaluated today on 06/27/20, remains in the ICU, on 2 L nasal cannula, O2 saturations 96%. Patient is intermittently confused, but this morning he seems to be very appropriate. He is on TPN at 30 mL per hour, IV fluid is at 100 mL per hour. Patient is in atrial fibrillation with RVR rate of 1 24/m. That is being addressed by cardiology on the case. Patient is posto perative day #2 underwent exploratory laparotomy, sigmoid resection and colostomy. Labs were all reviewed, CBC is relatively unremarkable. Electrolytes are normal potassium is a bit low at 3.4 being corrected as per protocol. INR is 2.4, therapeutic. Chest x-ray showed minimal right pleural effusion with elevation of the right hemidiaphragm, and streaky atelectasis at the left base. Patient was evaluated today on 06/28/20, patient was transferred back to the ICU early this morning mostly because he was noted by the nurse to have increased work of breathing, and increased abdominal distention with increased abdominal girth. Patient was brought down to the ICU, chest x-ray showed mostly bibasilar atelectasis with significant elevation of the left hemidiaphragm along with the right hemidiaphragm and there was significant large stomach bubble. Nasogastric tube was placed, and significant amount of bilious material over 1 L drained within a few minutes from the stomach. Patient felt a bit nauseated but felt better after the drainage of the stomach. Chest x-ray showed no evidence of pneumonia or evidence of congestive heart failure. ABG showed a pO2 of 70 pCO2 30 pH of 7.47. Basic metabolic profile was normal CBC was relatively normal x- rays of the abdomen and pelvis showed significant dilated bowel loops, and possible ileus or bowel obstruction. This is being addressed by surgery on the case. There was no evidence of free air. Patient was evaluated today in the ICU on 06/25/20, patient is resting in bed, on 4 L nasal cannula SATURATING 95%. Patient pulled out his nasogastric tube early this morning, and since the drainage was minimal, no new tube was placed. Chest x-ray continues to show some minimal atelectasis at the bases, right hemidiaphragm remains elevated. Patient is in atrial fibrillation with RVR, and his Lopressor was increased. Patient remains on Zosyn for his abdominal sepsis remains on TPN at 55 ML's per hour. Colostomy is noted to be slightly functional with minimal serous fluid noted in the colostomy. And the DEJON drain seems to be also functional with serous drainage noted. Patient remains on aspiration precautions, remains nothing by mouth. And his overall clinical status is marginal at best. Remains confused, asking to be sent home today. Labs today showed WBC of 13.4 hemoglobin 13.6 INR is therapeutic at 2.3 left lites are normal potassium is a bit low at 3.1 Objective - Vital Signs Vital signs: Vital Signs Temp 97.8 F 06/29/20 08:00 Pulse 111 H 06/29/20 11:47 Resp 16 06/29/20 10:00 BP 135/110 06/29/20 10:00 Pulse Ox 95 06/29/20 10:00 Intake & Output 06/28/20 06/29/20 06/29/20 18:59 06:59 18:59 Intake Total 1902 492 351 Output Total 3260 1190 245 Balance -1358 -698 106 Weight 93.5 kg Intake: IV 460 200 330 0.9 20 Mvi, Adult No.4 with Vit 110 K 10 ml Trace (Conc-1Ml/ Dose) 1 ml In Amino Acid 5%-D15w+Lytes*E* 1,000 ml @ 55 mls/hr IV .[id number] [facility] Rx#:[id number] Mvi, Adult No.4 with Vit 360 K 10 ml Trace (Conc-1Ml/ Dose) 1 ml Parenteral Electrolytes 20 ml In Amino Acid 5%-D15w 1,000 ml @ 30 mls/hr IV .Q24H [facility] Rx#:[id number] Piperacillin-Tazobactam 3 100 100 .375 gm In Sodium Chloride 0.9% 100 ml @ 25 mls/hr IVPB Q8HR [facility] Rx# :[id number] Potassium Chloride 20 meq 100 In Water For Injection 1 100ml.bag @ 50 mls/hr IVPB Q2H [facility] Rx#: [id number] metroNIDAZOLE-NS PMX 500 100 100 mg In Saline 1 100ml.bag @ 100 mls/hr IVPB Q6HR [facility] Rx#:[id number] Intake, IV Titration 1442 292 21 Amount Fat Emulsion 20% 250 ml @ 42 252 21 20.833 mls/hr IV MoWeFr@ 1600 [facility] Rx#:[id number] Parenteral Electrolytes 1020 20 ml In Amino Acid 5%- D15w 1,000 ml @ 95 mls/hr IV .BY DURATION [facility] Rx#: [id number] Piperacillin-Tazobactam 3 100 .375 gm In Sodium Chloride 0.9% 100 ml @ 25 mls/hr IVPB Q8HR [facility] Rx# :[id number] Potassium Phosphate 10 100 mmol In Sodium Chloride 0 .9% 100 ml @ 50 mls/hr IV ONCE [facility] Rx#:[id number] Sodium Chloride 0.9% 1, 180 40 000 ml @ 20 mls/hr IV . Q24H [facility] Rx#:[id number] Output: Gastric Drainage 600 250 Drainage 10 155 90 Abdomen 10 155 90 Urine 2650 785 155 Other: Voiding Method Indwelling Catheter Indwelling Catheter Indwelling Catheter - Exam GENERAL EXAM: Revealed an 80-year-old white male in no distress. On few liters nasal cannula. HEENT: PERRLA, EOMI, neck, neck masses, no JVD, no stridor CHEST: No chest wall deformity. Symmetrical expansion. LUNGS: Symmetrical chest expansion, diminished breath sounds at the bases no rhonchi no wheezes CVS: Irregular irregular rhythm., normal S1 and S2, no gallops, no murmurs, no rubs ABDOMEN: Distended lightly tender. No hepatosplenomegaly, no active bowel sounds., no guarding or rigidity. empty colostomy in place, EXTREMITIES: No clubbing, no edema, no cyanosis, 2+ pulses and upper and lower extremities. MUSCULOSKELETAL: Muscle strength and tone normal. SPINE: No scoliosis or deformity SKIN: No rashes CENTRAL NERVOUS SYSTEM: Slightly drowsy and oriented -1. No focal deficits, tone is normal in all 4 extremities. PSYCHIATRIC: Slightly drowsy and oriented -1. Appropriate affect. Intact judgment and insight. - Labs CBC & Chem 7: 06/29/20 06:35 06/29/20 06:35 Labs: Abnormal Lab Results - Last 24 Hours (Table) 06/28/20 06/28/20 06/29/20 Range/Units 16:24 22:24 03:54 WBC (3.8-10.6) k/uL MCHC (31.0-37.0) g/dL Neutrophils # (1.3-7.7) k/uL Lymphocytes # (1.0-4.8) k/uL PT (9.0-12.0) sec INR (<1.2) Potassium (3.5-5.1) mmol/L Chloride (98-107) mmol/L BUN (9-20) mg/dL Glucose (74-99) mg/dL POC Glucose (mg/dL) 139 H 150 H 151 H (75-99) mg/dL Calcium (8.4-10.2) mg/dL Phosphorus (2.5-4.5) mg/dL 06/29/20 06/29/20 06/29/20 Range/Units 06:35 06:35 06:35 WBC 13.4 H (3.8-10.6) k/uL MCHC 30.5 L (31.0-37.0) g/dL Neutrophils # 11.7 H (1.3-7.7) k/uL Lymphocytes # 0.5 L (1.0-4.8) k/uL PT 22.0 H (9.0-12.0) sec INR 2.3 H (<1.2) Potassium 3.1 L (3.5-5.1) mmol/L Chloride 113 H (98-107) mmol/L BUN 42 H (9-20) mg/dL Glucose 150 H (74-99) mg/dL POC Glucose (mg/dL) (75-99) mg/dL Calcium 8.3 L (8.4-10.2) mg/dL Phosphorus 2.2 L (2.5-4.5) mg/dL Microbiology - Last 24 Hours (Table) 06/28/20 09:20 Blood Culture - Preliminary Blood No Growth after 24 hours 06/28/20 13:20 Gram Stain - Preliminary Sputum Sputum Culture - Preliminary 06/28/20 13:20 Gram Stain - Preliminary Peritoneal Fluid Body Fluid Culture - Preliminary 06/25/20 22:27 Blood Culture - Preliminary Blood No Growth after 72 hours 06/25/20 22:34 Blood Culture - Preliminary Blood No Growth after 72 hours 06/25/20 19:42 Anaerobic Culture - Final Other - Other Anaerobic Gm Positive Bacill Anaerobic Gm Negative Bacilli Anaerobic Gram Positive Cocci Assessment and Plan Assessment: #1. Acute hypoxic respiratory failure due to postoperative hypoventilation, along with postoperative atelectasis, expected #2. Perforated sigmoid diverticulitis, with pneumoperitoneum, incarcerated left inguinal hernia, status post exploratory laparotomy with sigmoid resection, descending colostomy creation with rectal stump, reduction and repair of incarcerated left inguinal hernia, Luke's procedure, drainage of sigmoid d iverticular abscess, drainage of left inguinal canal abscess and peritoneal lavage, placement of wound VAC in the abdominal wall #3. Acute intra-abdominal sepsis related to the above, on Zosyn and Flagyl for antibiotic coverage #4. Acute kidney injury related to acute sepsis, ATN, renal function is improving, and nephrology is on the case #5. A. fib with RVR, the rate is currently better controlled, on anti- coagulation therapy/Coumadin and on beta blockers #6. Hypertension, history of #7. History of prostate cancer, history of surgical resection followed by radiation #8. Osteoarthritis #9 suspect ileus or bowel obstruction Recommendation: Nasogastric tube was pulled out by the patient, no need for another one at this point. Continue incentive spirometry. Continue present meds as listed. Continue TPN. Continue GI and DVT prophylaxis. Continue antibiotics for abdominal sepsis. Continue beta blockers and Coumadin Monitor in the ICU for now, possibly transfer to a monitor bed tomorrow We'll continue to follow Time with Patient: Less than 30
[2020-06-29] MEDS: MVI, ADULT NO.4 WITH VIT K 10 ML, TRACE (CONC-1ML/DOSE) 1 ML in AMINO ACID 5%-D15W+LYTE... IV SCH ×3 (13:11)
[2020-06-29 13:14] LABS: Glucose,Whole Blood 128 mg/dL (75-99)
--- NOTE | 2020-06-29 14:31 | PN ---
PROGRESS NOTE DATE OF SERVICE: 06/29/2020 REASON FOR FOLLOWUP: Secondary peritonitis from perforated diverticulitis. INTERVAL HISTORY: The patient is currently afebrile. The patient did pull up his NG this morning. Denies having any chest pain or shortness of breath or cough. No abdominal pain and no bowel movement. PHYSICAL EXAMINATION: Blood pressure 150/97, pulse of 113, temperature is 97.8, he is 94% on 4 L nasal cannula. General description is an elderly male, lying in bed in no distress. RESPIRATORY SYSTEM: Unlabored breathing, decreased breath sounds at the base. HEART: S1, S2. Regular rate and rhythm. ABDOMEN: Soft, mildly tender, no guarding or rigidity. LABS: Hemoglobin 13.8, white count 13.4, BUN of 42, creatinine 0.94, blood culture negative. Abdominal culture predominantly with anaerobes. DIAGNOSTIC IMPRESSION AND PLAN: Patient with secondary peritonitis from perforated diverticulitis status post laparotomy and diverting colostomy. The patient is covered with Zosyn to continue and will monitor clinical course closely. MMODL / IJN: [id number] /
--- NOTE | 2020-06-29 16:14 | P.PN ---
<Jacquie Sanchez - Last Filed: 06/29/20 16:06> Subjective Progress Note Date: 06/29/20 CHIEF COMPLAINT: Abdominal pain HISTORY OF PRESENT ILLNESS: Patient's is being followed for acute diverticulitis with perforation. Patient is postop day #4. He is currently in the ICU. She is confused. Patient does report some abdominal pain. He is passing gas. There is air in his bag. He is afebrile. White count is 13.4. Potassium 3.1 He did pull his NG tube out. Denies any nausea or vomiting. He has been started on TPN. PHYSICAL EXAM: VITAL SIGNS: Reviewed GENERAL: Well-developed in no acute distress. HEENT: No sclera icterus. Extraocular movements grossly intact. Moist buccal mucosa. Head is atraumatic, normocephalic. Hears conversational speech. No nasal drainage. NECK: Supple without lymphadenopathy. CHEST: Non-labored respirations and equal bilateral excursions. CARDIOVASCULAR: Palpable 2+ radial pulses. ABDOMEN: Soft. Mildly distended. Dressing clean dry and intact. Colostomy with serosanguineous drainage MUSCULOSKELETAL: No clubbing or cyanosis. NEUROLOGIC: Patient is still confused. No focal or lateralizing signs. Cranial nerves II through XII grossly intact. PSYCH: Appropriate affect. Alert and oriented to person, place and time. SKIN: Well perfused. Good skin turgor. ASSESSMENT: 1. Pneumoperitoneum status post exploratory laparotomy with sigmoid resection for perforated sigmoid diverticulitis, descending colostomy creation with rectal stump, reduction and repair of incarcerated left inguinal hernia, Iwona's procedure for perforated sigmoid diverticulitis, drainage of sigmoid diverticular abscess, drainage of left inguinal canal, abscess, placement of intraabdominal #19 Prince drain along the pelvis and placement of universal incisional PREVENA wound VAC system 2. Acute sigmoid diverticulitis, perforated sigmoid diverticulitis 3. Incarcerated left inguinal hernia 4. Sepsis with mental status changes, new 5. Leukocytosis 6. Atrial fibrillation 7. Chronic Coumadin therapy 8. Hypertensive heart disease 9. History of prostate cancer 10. Status post pelvic radiation for prostate cancer 11. Pelvic diverticular abscess, left lower quadrant 12. Ileus PLAN: -Continue ICU management -Continue antibiotics -Continue pain medications for pain control -Continue TPN -Continue GI and DVT prophylaxis Physician [employer] Manager note has been reviewed by physician. Signing provider agrees with the documented findings, assessment, and plan of care. Objective - Vital Signs Vital signs: Vital Signs Temp 97.8 F 06/29/20 08:00 Pulse 115 H 06/29/20 15:30 Resp 19 06/29/20 15:00 BP 131/103 06/29/20 15:00 Pulse Ox 95 06/29/20 15:00 Intake & Output 06/28/20 06/29/20 06/29/20 18:59 06:59 18:59 Intake Total 1548 082 2894 Output Total 3260 1190 1930 Balance -1358 -698 -108 Weight 93.5 kg Intake: IV 460 200 790 0.9 60 Mvi, Adult No.4 with Vit 330 K 10 ml Trace (Conc-1Ml/ Dose) 1 ml In Amino Acid 5%-D15w+Lytes*E* 1,000 ml @ 55 mls/hr IV .[id number] [facility] Rx#:[id number] Mvi, Adult No.4 with Vit 360 K 10 ml Trace (Conc-1Ml/ Dose) 1 ml Parenteral Electrolytes 20 ml In Amino Acid 5%-D15w 1,000 ml @ 30 mls/hr IV .Q24H [facility] Rx#:[id number] Piperacillin-Tazobactam 3 100 100 .375 gm In Sodium Chloride 0.9% 100 ml @ 25 mls/hr IVPB Q8HR [facility] Rx# :[id number] Potassium Chloride 20 meq 200 In Water For Injection 1 100ml.bag @ 50 mls/hr IVPB Q2H [facility] Rx#: [id number] metroNIDAZOLE-NS PMX 500 100 100 100 mg In Saline 1 100ml.bag @ 100 mls/hr IVPB Q6HR [facility] Rx#:[id number] Intake, IV Titration 1895 106 5903 Amount Fat Emulsion 20% 250 ml @ 42 252 21 20.833 mls/hr IV MoWeFr@ 1600 [facility] Rx#:[id number] Mvi, Adult No.4 with Vit 1011 K 10 ml Trace (Conc-1Ml/ Dose) 1 ml In Amino Acid 5%-D15w+Lytes*E* 1,000 ml @ 55 mls/hr IV .[id number] [facility] Rx#:[id number] Parenteral Electrolytes 1020 20 ml In Amino Acid 5%- D15w 1,000 ml @ 95 mls/hr IV .BY DURATION [facility] Rx#: [id number] Piperacillin-Tazobactam 3 100 .375 gm In Sodium Chloride 0.9% 100 ml @ 25 mls/hr IVPB Q8HR [facility] Rx# :[id number] Potassium Phosphate 10 100 mmol In Sodium Chloride 0 .9% 100 ml @ 50 mls/hr IV ONCE [facility] Rx#:[id number] Sodium Chloride 0.9% 1, 180 40 000 ml @ 20 mls/hr IV . Q24H [facility] Rx#:[id number] Output: Gastric Drainage 600 250 Drainage 10 155 300 Abdomen 10 155 300 Urine 2650 785 1630 Other: Voiding Method Indwelling Catheter Indwelling Catheter Indwelling Catheter - Labs CBC & Chem 7: 06/29/20 06:35 06/29/20 06:35 Labs: Abnormal Lab Results - Last 24 Hours (Table) 06/28/20 06/28/20 06/29/20 Range/Units 16:24 22:24 03:54 WBC (3.8-10.6) k/uL MCHC (31.0-37.0) g/dL Neutrophils # (1.3-7.7) k/uL Lymphocytes # (1.0-4.8) k/uL PT (9.0-12.0) sec INR (<1.2) Potassium (3.5-5.1) mmol/L Chloride (98-107) mmol/L BUN (9-20) mg/dL Glucose (74-99) mg/dL POC Glucose (mg/dL) 139 H 150 H 151 H (75-99) mg/dL Calcium (8.4-10.2) mg/dL Phosphorus (2.5-4.5) mg/dL 06/29/20 06/29/20 06/29/20 Range/Units 06:35 06:35 06:35 WBC 13.4 H (3.8-10.6) k/uL MCHC 30.5 L (31.0-37.0) g/dL Neutrophils # 11.7 H (1.3-7.7) k/uL Lymphocytes # 0.5 L (1.0-4.8) k/uL PT 22.0 H (9.0-12.0) sec INR 2.3 H (<1.2) Potassium 3.1 L (3.5-5.1) mmol/L Chloride 113 H (98-107) mmol/L BUN 42 H (9-20) mg/dL Glucose 150 H (74-99) mg/dL POC Glucose (mg/dL) (75-99) mg/dL Calcium 8.3 L (8.4-10.2) mg/dL Phosphorus 2.2 L (2.5-4.5) mg/dL 06/29/20 Range/Units 13:12 WBC (3.8-10.6) k/uL MCHC (31.0-37.0) g/dL Neutrophils # (1.3-7.7) k/uL Lymphocytes # (1.0-4.8) k/uL PT (9.0-12.0) sec INR (<1.2) Potassium (3.5-5.1) mmol/L Chloride (98-107) mmol/L BUN (9-20) mg/dL Glucose (74-99) mg/dL POC Glucose (mg/dL) 128 H (75-99) mg/dL Calcium (8.4-10.2) mg/dL Phosphorus (2.5-4.5) mg/dL Microbiology - Last 24 Hours (Table) 06/28/20 09:20 Blood Culture - Preliminary Blood No Growth after 24 hours 06/28/20 13:20 Gram Stain - Preliminary Sputum Sputum Culture - Preliminary 06/28/20 13:20 Gram Stain - Preliminary Peritoneal Fluid Body Fluid Culture - Preliminary 06/25/20 22:27 Blood Culture - Preliminary Blood No Growth after 72 hours 06/25/20 22:34 Blood Culture - Preliminary Blood No Growth after 72 hours 06/25/20 19:42 Anaerobic Culture - Final Other - Other Anaerobic Gm Positive Bacill Anaerobic Gm Negative Bacilli Anaerobic Gram Positive Cocci <Tosha Lau - Last Filed: 07/05/20 21:37> Subjective Patient seen and evaluated. Please see additional documentation including pertinent physical exam ABDOMEN: No peritonitis. Ostomy pink patent. No infection. DEJON is serous. PSYCH: Alert to person. Sometimes inappropriate place. PLAN: 1. Recommend PT OT assessment for rehab 2. Pending infectious disease discussion and referral for outpatient antibiotics 3. Drain fluid recent for additional peritoneal cultures 4. Monitor leukocytosis 5. Avoid narcotics and continue IV acetaminophen for adverse reaction from narcotics with mental status changes Objective - Vital Signs Vital signs: Vital Signs Temp 98.1 F 07/05/20 15:05 Pulse 89 07/05/20 15:05 Resp 16 07/04/20 15:48 BP 115/81 07/05/20 15:05 Pulse Ox 93 L 07/05/20 15:05 Intake & Output 07/05/20 07/05/20 07/06/20 06:59 18:59 06:59 Intake Total 140 570 Output Total 620 Balance 140 -50 Weight 93.5 kg Intake: IV 100 Piperacillin-Tazobactam 3 100 .375 gm In Sodium Chloride 0.9% 100 ml @ 25 mls/hr IVPB Q8HR [facility] Rx# :[id number] Intake, IV Titration 140 120 Amount Piperacillin-Tazobactam 3 100 .375 gm In Sodium Chloride 0.9% 100 ml @ 25 mls/hr IVPB Q8HR [facility] Rx# :[id number] Sodium Chloride 0.9% 1, 40 120 000 ml @ 20 mls/hr IV . Q24H [facility] Rx#:[id number] Oral 350 Output: Drainage 20 Abdomen 20 Urine 600 Other: Voiding Method Toilet Urinal # Voids 2 2 # Bowel Movements 2 - Labs CBC & Chem 7: 07/05/20 06:28 07/04/20 07:37 Labs: Abnormal Lab Results - Last 24 Hours (Table) 07/05/20 07/05/20 Range/Units 06:28 06:28 RBC 3.41 L (4.30-5.90) m/uL Hgb 9.8 L (13.0-17.5) gm/dL Hct 29.8 L (39.0-53.0) % Lymphocytes # 0.8 L (1.0-4.8) k/uL PT 35.4 H (9.9-11.9) sec INR 3.47 H (0.90-1.11) Assessment and Plan (1) Sigmoid diverticulitis Status: Acute Code(s): K57.32 - DVTRCLI OF LG INT W/O PERFORATION OR ABSCESS W/O BLEEDING SNOMED Code(s): 686379590 (2) Prostate cancer Status: Acute Code(s): C61 - MALIGNANT NEOPLASM OF PROSTATE SNOMED Code(s): 978323270 (3) Atrial fibrillation Status: Acute Code(s): I48.91 - UNSPECIFIED ATRIAL FIBRILLATION SNOMED Code(s): 63950032 (4) Anticoagulated on Coumadin Status: Acute Code(s): Z79.01 - MATCHER OFFBEARER (CURRENT) USE OF ANTICOAGULANTS SNOMED Code(s): 34040866 (5) Acute tubular necrosis Status: Acute Code(s): N17.0 - ACUTE KIDNEY FAILURE WITH TUBULAR NECROSIS SNOMED Code(s): 94867191
[2020-06-29 17:02] LABS: Glucose,Whole Blood 157 mg/dL (75-99)
--- NOTE | 2020-06-29 17:13 | P.PN ---
Progress Note - Text Progress Note Date: 06/29/20 Chief Complaint: Abdominal pain History of presenting complaint: This is a very pleasant 80-year-old patient of Dr. Joel. Chronic stable medical conditions include paroxysmal atrial fibrillation on Coumadin, hypertension, prostate cancer treated by surgery and followed by radiation treatment a year later, back surgery. The last 2 or 3 days patient with having increasing lower abdominal pain started off with nausea after he presented today also vomited couple of times. Denied any fever and chills. Patient baseline normally has 2 or 3 bowel movements a day. Last bowel movement was 2 days ago. Abdomen felt distended. Computed tomography scan of the abdomen that showed extensive sigmoid diverticulosis with asymmetry with a segment of diverticulitis and some fat and fluid containing left inguinal hernia and few fluid-filled loops of distal ileum. Admitted with acute sigmoid diverticular to severe, with ileus. Coumadin toxicity for which received vitamin K.on June 25 evening patient was taken to the OR by Dr. Kwok. Found to have a perforated sigmoid diverticulitis with stool and pus in the abdomen.patient underwent sigmoid resection followed by colostomy creation and repair of incarcerated left inguinal hernia/Luke's procedure. Pericardial large. Drain was placed. An incisional wound VAC was placed. Postprocedure, admitted to the ICU. Started on IV TPN and lipids. On IV Zosyn and Flagyl. Patient was moved out of the ICU. Patient had a postop ileus. Had a NG placed. [id number] last had pulled out his NG tube. Some abdominal distention. Some flatus in the colostomy bag. at the bedside. Has a Granado catheter.. Review of systems: Was done for constitutional, cardiovascular, GI, pulmonary. relevant finding as above Active Medications Albuterol/Ipratropium (Ipratropium-Albuterol 3 Ml Neb) 3 ml INHALATION RT-Q4H [facility] Last Admin: 06/29/20 15:12 Dose: 3 ml Documented by: Albuterol/Ipratropium (Ipratropium-Albuterol 3 Ml Neb) 3 ml INHALATION RT-QID PRN PRN Reason: Shortness Of Breath Or Wheezing Alvimopan (Alvimopan 12 Mg Capsule) 12 mg PO BID [facility] Stop: 07/05/20 09:01 Last Admin: 09/24/20 09:42 Dose: Not Given Documented by: Amlodipine Besylate (Amlodipine 10 Mg Tab) 10 mg PO DAILY [facility] Last Admin: 06/29/20 09:42 Dose: Not Given Documented by: Hydralazine HCl (Hydralazine Hcl 20 Mg/Ml 1 Ml Vial) 15 mg IVP Q4HR PRN PRN Reason: Blood Pressure - High Last Admin: 06/29/20 06:21 Dose: 15 mg Documented by: Piperacillin Sod/Tazobactam (Sod 3.375 gm/ Sodium Chloride) 100 mls @ 25 mls/hr IVPB Q8HR [facility] Last Admin: 06/29/20 08:38 Dose: 25 mls/hr Documented by: Metronidazole 500 mg/ IV (Solution) 100 mls @ 100 mls/hr IVPB Q6HR [facility] Last Admin: 06/29/20 10:57 Dose: 100 mls/hr Documented by: Sodium Chloride (Saline 0.9%) 1,000 mls @ 20 mls/hr IV .Q24H [facility] Last Admin: 06/28/20 18:41 Dose: Not Given Documented by: Parenteral Vitamin Supplement 10 ml/ Chromium/Copper/Manganese/Seleni/Zn 1 ml/Amino Ac/Electrol/Dextrose/Calcium 1,011 mls @ 55 mls/hr IV .[id number] [facility] Last Admin: 06/29/20 13:11 Dose: 55 mls/hr Documented by: Fat Emulsion Intravenous (Lipids 20%) 250 mls @ 20.833 mls/hr IV MoWeFr@1600 [facility] Last Admin: 06/28/20 17:26 Dose: 20.833 mls/hr Documented by: Insulin Aspart (Insulin Aspart (Novolog) 100 Unit/Ml Vial) 0 unit SQ Q6H [facility]; Protocol Last Admin: 06/29/20 13:28 Dose: Not Given Documented by: Metoprolol Tartrate (Metoprolol Tartrate 5 Mg/5 Ml Vial) 5 mg IVP Q6HR [facility] Last Admin: 06/29/20 10:56 Dose: 5 mg Documented by: Miscellaneous Information (Potassium Replacement Protocol 1 Each Misc) 1 each MISCELLANE DAILY PRN; Protocol PRN Reason: Per Protocol Miscellaneous Information (Warfarin Per Pharmacy) 0 each MISCELLANE DIRECTED PRN PRN Reason: ANTICOAG Naloxone HCl (Naloxone 0.4 Mg/Ml 1 Ml Vial) 0.2 mg IV Q2M PRN PRN Reason: Opioid Reversal Ondansetron HCl (Ondansetron 4 Mg/2 Ml Vial) 4 mg IVP Q6HR PRN PRN Reason: Nausea And Vomiting Last Admin: 06/27/20 08:40 Dose: 4 mg Documented by: Pantoprazole Sodium (Pantoprazole 40 Mg/10 Ml Vial) 40 mg IVP DAILY [facility] Last Admin: 06/29/20 08:39 Dose: 40 mg Documented by: Prochlorperazine Maleate (Prochlorperazine 10 Mg Tab) 10 mg PO Q6HR PRN PRN Reason: Nausea And Vomiting Trazodone HCl (Trazodone Hcl 50 Mg Tab) 50 mg PO [facility] Last Admin: 06/28/20 21:12 Dose: 50 mg Documented by: Warfarin Sodium (Warfarin 2 Mg Tab) 2 mg PO ONCE@1800 [facility]; Protocol Stop: 06/29/20 18:01 Physical examination: VITAL SIGNS: 97.8, 117, 17, 135 with 93, 96% on 4 L GENERAL: Laying in bed, tired, awake EYES: Pupils equal. Conjunctiva normal. HEENT: External appearance of nose and ears normal, oral cavity dry, NG tube to suction NECK: JVD not raised; masses not palpable. HEART: First and second heart sounds are normal; no edema. LUNGS: Respiratory rate increased; decreased breath sounds. ABDOMEN: Soft,tender, DEJON drain, incisional wound VAC, no mass palpable, scrotal swelling, colostomy with air PSYCH: AO - times three. Mood and affect normal INVESTIGATIONS, reviewed in the clinical context: White count 13.4 hemoglobin 13.6 potassium 3.1 creatinine 0.94 Previous testing White count 15.4 hemoglobin 13.5 platelets 196 INR 4.8 potassium 3.7 creatinine 1.06 Computed tomography scan of the abdomen pelvis-sigmoid diverticulosis with diverticulitis. No free air. Some air-fluid levels in the distal ileum Abdominal x-ray-06/25/2020 film personally reviewed by me shows free air Abdominal x-ray film dilated loops of bowel Assessment: -Acute severe sigmoid diverticulitis-with perforation-leading to sigmoid resect ion with Iwona's procedure and a colostomy. Patient has DEJON drain -Acute postop ileus causing respiratory compromise, followed by NG tube to suction-accidentally pulled out by patient -Secondary peritonitis secondary to ruptured viscus, causing sepsis -repair- Incarcerated left inguinal hernia -Acute kidney injury likely from improved -Colonic diverticulosis -Paroxysmal atrial fibrillation chronically on Coumadin -Coumadin monitoring with toxicity-give vitamin K.-Corrected -Prostate cancer with a history of surgery and radiation treatment -Hypoalbuminemia-reactive Plan: Remains on TPN and lipids. IV Flagyl, IV Zosyn. Care discussed with the patient and the . Questions answered. Follow
[2020-06-29] MEDS ORDERED: WARFARIN 2 MG TAB PO ONE (18:00)
[2020-06-29] MEDS: SODIUM CHLORIDE 0.9% 1,000 ML IV SCH (18:38)
[2020-06-29] MEDS: traZODone HCL 50 MG TAB PO SCH (20:09)
[2020-06-30] MEDS: METOPROLOL TARTRATE 5 MG/5 ML VIAL IVP SCH ×2 (00:02→06:26)
[2020-06-30] MEDS: PIPERACILLIN-TAZOBACTAM 3.375 GM in SODIUM CHLORIDE 0.9% 100 ML IVPB SCH ×3 (00:02→16:01)
[2020-06-30] MEDS: metroNIDAZOLE-NS PMX 500 MG in SALINE 1 100ML.BAG IVPB SCH ×4 (00:02→17:43)
[2020-06-30 00:09] LABS: Glucose,Whole Blood 130 mg/dL (75-99)
[2020-06-30] MEDS: INSULIN ASPART (NovoLOG) 100 UNIT/ML VIAL SQ SCH ×4 (00:26→21:00)
[2020-06-30] MEDS: IPRATROPIUM-ALBUTEROL 3 ML NEB INHALATION SCH ×6 (01:13→20:11)
[2020-06-30] MEDS: POTASSIUM CHLORIDE 10 MEQ in WATER FOR INJECTION 1 100ML.BAG IVPB SCH ×2 (03:35→05:00)
[2020-06-30] MEDS: MVI, ADULT NO.4 WITH VIT K 10 ML, TRACE (CONC-1ML/DOSE) 1 ML in AMINO ACID 5%-D15W+LYTE... IV SCH ×3 (06:20)
[2020-06-30 06:26] LABS: Glucose,Whole Blood 131 mg/dL (75-99)
[2020-06-30 06:27] LABS: Hypochromasia Slight; MCH 28.2 pg (25.0-35.0); MCHC 31.8 g/dL (31.0-37.0); MCV 88.7 fL (80.0-100.0); Mean Platelet Volume 7.4; Platelet Count 288 k/uL (150-450); RBC 4.62 m/uL (4.30-5.90); RDW 14.8 % (11.5-15.5); WBC 14.9 k/uL (3.8-10.6)
[2020-06-30 06:37] LABS: INR 2.2 (<1.2); Prothrombin Time 21.7 sec (9.0-12.0)
[2020-06-30 06:41] LABS: African American GFR (CKD) >90 (>60 ml/min/1.73 sqM); Anion Gap 0 mmol/L; Blood Urea Nitrogen 40 mg/dL (9-20); Calcium 7.9 mg/dL (8.4-10.2); Carbon Dioxide 28 mmol/L (22-30); Chloride 114 mmol/L (98-107); Glucose 125 mg/dL (74-99); Magnesium 1.9 mg/dL (1.6-2.3); Non-African American GFR(CKD) 80 (>60 ml/min/1.73 sqM); Phosphorus 2.5 mg/dL (2.5-4.5); Potassium 3.6 mmol/L (3.5-5.1); Sodium 142 mmol/L (137-145)
--- NOTE | 2020-06-30 08:21 | XR ---
EXAMINATION TYPE: XR chest 1V portable DATE OF EXAM: 06/30/2020 COMPARISON: 06/29/2020 INDICATION: Shortness of breath TECHNIQUE: Single frontal view of the chest is obtained. FINDINGS: The heart size is normal. The pulmonary vasculature is normal. The lungs are clear. Such as atelectasis at the left base. PICC line enters on the right and has its tip in the superior vena cava region Small right pleural effusion is present. Some atelectasis or infiltrate is at the left base. IMPRESSION: 1. Small right pleural effusion improving from prior. 2. Stable infiltrate
--- NOTE | 2020-06-30 08:29 | P.PN ---
Subjective Progress Note Date: 06/30/20 Principal diagnosis: Long-standing persistent atrial fibrillation This is a pleasant 78-year-old gentleman with history of long-standing persistent atrial fibrillation as well as hypertension who developed sigmoid diverticulitis and pneumoperitoneum and he underwent surgery. We consulted to see the patient for the management of atrial fibrillation and also for preop cardiac assessment before noncardiac surgery. The patient was seen today June [id number]. He remains in atrial fibrillation. Currently he is on metoprolol IV because he is nothing by mouth at this point. The heart rate has been under good control on metoprolol IV. He was on Coumadin but that is on hold at this point. He needs to be started on heparin if she continues to be nothing by mouth. Objective - Vital Signs Vital signs: Vital Signs Temp 98.5 F 06/30/20 04:00 Pulse 101 H 06/30/20 07:39 Resp 17 06/30/20 07:00 BP 133/103 06/30/20 07:00 Pulse Ox 98 06/30/20 07:00 Intake & Output 06/29/20 06/30/20 06/30/20 18:59 06:59 18:59 Intake Total 2412 1858.25 65 Output Total 2770 915 75 Balance -358 943.25 -10 Intake: IV 1380 915 65 0.9 120 110 10 Mvi, Adult No.4 with Vit 660 605 55 K 10 ml Trace (Conc-1Ml/ Dose) 1 ml In Amino Acid 5%-D15w+Lytes*E* 1,000 ml @ 55 mls/hr IV .[id number] [facility] Rx#:[id number] Piperacillin-Tazobactam 3 200 .375 gm In Sodium Chloride 0.9% 100 ml @ 25 mls/hr IVPB Q8HR [facility] Rx# :[id number] Potassium Chloride 20 meq 200 200 In Water For Injection 1 100ml.bag @ 50 mls/hr IVPB Q2H [facility] Rx#: [id number] metroNIDAZOLE-NS PMX 500 200 mg In Saline 1 100ml.bag @ 100 mls/hr IVPB Q6HR [facility] Rx#:[id number] Intake, IV Titration 1032 943.25 Amount Fat Emulsion 20% 250 ml @ 21 20.833 mls/hr IV MoWeFr@ 1600 [facility] Rx#:[id number] Mvi, Adult No.4 with Vit 1011 943.25 K 10 ml Trace (Conc-1Ml/ Dose) 1 ml In Amino Acid 5%-D15w+Lytes*E* 1,000 ml @ 55 mls/hr IV .[id number] [facility] Rx#:[id number] Output: Drainage 490 130 Abdomen 490 130 Urine 2280 785 75 Other: Voiding Method Indwelling Catheter Indwelling Catheter - Constitutional General appearance: Present: no acute distress - Respiratory Respiratory: bilateral: diminished - Cardiovascular Rhythm: irregularly irregular Heart sounds: normal: S1, S2 - Labs CBC & Chem 7: 06/30/20 06:20 06/30/20 06:12 Labs: Abnormal Lab Results - Last 24 Hours (Table) 06/29/20 06/29/20 06/30/20 Range/Units 13:12 17:00 00:07 WBC (3.8-10.6) k/uL PT (9.0-12.0) sec INR (<1.2) Chloride (98-107) mmol/L BUN (9-20) mg/dL Glucose (74-99) mg/dL POC Glucose (mg/dL) 128 H 157 H 130 H (75-99) mg/dL Calcium (8.4-10.2) mg/dL 06/30/20 06/30/20 06/30/20 Range/Units 06:12 06:12 06:20 WBC 14.9 H (3.8-10.6) k/uL PT 21.7 H (9.0-12.0) sec INR 2.2 H (<1.2) Chloride 114 H (98-107) mmol/L BUN 40 H (9-20) mg/dL Glucose 125 H (74-99) mg/dL POC Glucose (mg/dL) (75-99) mg/dL Calcium 7.9 L (8.4-10.2) mg/dL 06/30/20 Range/Units 06:24 WBC (3.8-10.6) k/uL PT (9.0-12.0) sec INR (<1.2) Chloride (98-107) mmol/L BUN (9-20) mg/dL Glucose (74-99) mg/dL POC Glucose (mg/dL) 131 H (75-99) mg/dL Calcium (8.4-10.2) mg/dL Microbiology - Last 24 Hours (Table) 06/25/20 22:27 Blood Culture - Preliminary Blood No Growth after 96 hours 06/25/20 22:34 Blood Culture - Preliminary Blood No Growth after 96 hours 06/28/20 13:20 Gram Stain - Preliminary Peritoneal Fluid Body Fluid Culture - Preliminary 06/28/20 09:20 Blood Culture - Preliminary Blood No Growth after 24 hours 06/28/20 13:20 Gram Stain - Preliminary Sputum Sputum Culture - Preliminary Assessment and Plan Assessment: Assessment #1 sigmoid diverticulitis and pneumoperitoneum #2 long-standing persistent atrial fibrillation #3 multiple comorbid conditions Plan #1 continue metoprolol IV #2 start heparin if he continues to be nothing by mouth #3 follow-up with the patient
[2020-06-30] MEDS: POTASSIUM CHLORIDE 20 MEQ in WATER FOR INJECTION 1 100ML.BAG IVPB SCH ×2 (09:25→11:56)
[2020-06-30] MEDS: PANTOPRAZOLE 40 MG/10 ML VIAL IVP SCH (09:25)
--- NOTE | 2020-06-30 10:35 | P.PN ---
Subjective patient is seen in follow-up for acute kidney injury, resolved with IV hydration. Currently maintained on PPN. underwent exploratory laparotomy with sigmoid resection for perforated sigmoid diverticulitis on June 25. hemodynamically stable. feels better today. Nonoliguric. Vital signs are stable. General: The patient appeared well nourished and normally developed. HEENT: Head exam is unremarkable. Neck is without jugular venous distension. LUNGS: Breath sounds decreased. HEART: irregular rate and rhythm. ABDOMEN: surgical abdomen. Mild tenderness. EXTREMITITES: 2+ edema. Objective - Vital Signs Vital signs: Vital Signs Temp 98.5 F 06/30/20 04:00 Pulse 106 H 06/30/20 10:00 Resp 17 06/30/20 10:00 BP 149/122 06/30/20 10:00 Pulse Ox 96 06/30/20 10:00 Intake & Output 06/29/20 06/30/20 06/30/20 18:59 06:59 18:59 Intake Total 2412 1858.25 360 Output Total 2770 915 285 Balance -358 943.25 75 Intake: IV 1380 915 360 0.9 120 110 40 Mvi, Adult No.4 with Vit 660 605 220 K 10 ml Trace (Conc-1Ml/ Dose) 1 ml In Amino Acid 5%-D15w+Lytes*E* 1,000 ml @ 55 mls/hr IV .[id number] [facility] Rx#:[id number] Piperacillin-Tazobactam 3 200 100 .375 gm In Sodium Chloride 0.9% 100 ml @ 25 mls/hr IVPB Q8HR [facility] Rx# :[id number] Potassium Chloride 20 meq 200 200 In Water For Injection 1 100ml.bag @ 50 mls/hr IVPB Q2H [facility] Rx#: [id number] metroNIDAZOLE-NS PMX 500 200 mg In Saline 1 100ml.bag @ 100 mls/hr IVPB Q6HR [facility] Rx#:[id number] Intake, IV Titration 1032 943.25 Amount Fat Emulsion 20% 250 ml @ 21 20.833 mls/hr IV MoWeFr@ 1600 [facility] Rx#:[id number] Mvi, Adult No.4 with Vit 1011 943.25 K 10 ml Trace (Conc-1Ml/ Dose) 1 ml In Amino Acid 5%-D15w+Lytes*E* 1,000 ml @ 55 mls/hr IV .[id number] [facility] Rx#:[id number] Output: Drainage 490 130 Abdomen 490 130 Urine 2280 785 285 Other: Voiding Method Indwelling Catheter Indwelling Catheter - Labs CBC & Chem 7: 06/30/20 06:20 06/30/20 06:12 Labs: Abnormal Lab Results - Last 24 Hours (Table) 06/29/20 06/29/20 06/30/20 Range/Units 13:12 17:00 00:07 WBC (3.8-10.6) k/uL PT (9.0-12.0) sec INR (<1.2) Chloride (98-107) mmol/L BUN (9-20) mg/dL Glucose (74-99) mg/dL POC Glucose (mg/dL) 128 H 157 H 130 H (75-99) mg/dL Calcium (8.4-10.2) mg/dL 06/30/20 06/30/20 06/30/20 Range/Units 06:12 06:12 06:20 WBC 14.9 H (3.8-10.6) k/uL PT 21.7 H (9.0-12.0) sec INR 2.2 H (<1.2) Chloride 114 H (98-107) mmol/L BUN 40 H (9-20) mg/dL Glucose 125 H (74-99) mg/dL POC Glucose (mg/dL) (75-99) mg/dL Calcium 7.9 L (8.4-10.2) mg/dL 06/30/20 Range/Units 06:24 WBC (3.8-10.6) k/uL PT (9.0-12.0) sec INR (<1.2) Chloride (98-107) mmol/L BUN (9-20) mg/dL Glucose (74-99) mg/dL POC Glucose (mg/dL) 131 H (75-99) mg/dL Calcium (8.4-10.2) mg/dL Microbiology - Last 24 Hours (Table) 06/28/20 13:20 Gram Stain - Final Sputum Sputum Culture - Final 06/25/20 22:27 Blood Culture - Preliminary Blood No Growth after 96 hours 06/25/20 22:34 Blood Culture - Preliminary Blood No Growth after 96 hours 06/28/20 13:20 Gram Stain - Preliminary Peritoneal Fluid Body Fluid Culture - Preliminary 06/28/20 09:20 Blood Culture - Preliminary Blood No Growth after 24 hours Assessment and Plan Plan: assessment: 1. Acute kidney injury mostly prerenal improving with IV hydration. Creatinine 0.88 today. 2. Perforated diverticulitis with pneumoperitoneum status post exploratory laparotomy on June 25. 3. atrial fibrillation maintained on metoprolol. 4. Benign hypertension. blood pressure on the higher side. Partially due to pain. 5. Hypokalemia from poor intake and diuresis. magnesium normal. 6. Hypophosphatemia from poor intake, better. 7. Volume overload. improving with diuresis. 8. Acute hypoxic respiratory failure. Plan: Add lasix 40 mg IV daily. avoid nephrotoxins. Potassium being replaced.
[2020-06-30] MEDS: METOPROLOL TARTRATE 50 MG TAB PO SCH ×3 (11:54→21:01)
[2020-06-30] MEDS: FUROSEMIDE 10 MG/ML 4 ML VIAL IV SCH (11:55)
[2020-06-30] MEDS: ALVIMOPAN 12 MG CAPSULE PO SCH ×2 (11:56→20:44)
[2020-06-30] MEDS: amLODIPine 10 MG TAB PO SCH (11:56)
--- NOTE | 2020-06-30 12:02 | P.PN ---
<Jacquie Sanchez - Last Filed: 06/30/20 11:56> Subjective Progress Note Date: 06/30/20 CHIEF COMPLAINT: Abdominal pain HISTORY OF PRESENT ILLNESS: Patient's is being followed for acute diverticulitis with perforation. Patient is postop day #5. He is currently in the ICU. He is less confused. He is having stool and gas through his colostomy. He is asking for popsicles. He is complaining of abdominal pain. Patient's Prevnar dressing was removed today by Dr. Lau. Colostomy dressing to be changed by ostomy nurse. Patient is currently nothing by mouth and on TPN. White count is 14.9. Potassium 3.6 and Magnesium 1.9. Patient is also on IV Lasix for fluid overload. PHYSICAL EXAM: VITAL SIGNS: Reviewed GENERAL: Well-developed in no acute distress. HEENT: No sclera icterus. Extraocular movements grossly intact. Moist buccal mucosa. Head is atraumatic, normocephalic. Hears conversational speech. No nasal drainage. NECK: Supple without lymphadenopathy. CHEST: Non-labored respirations and equal bilateral excursions. CARDIOVASCULAR: Palpable 2+ radial pulses. ABDOMEN: Soft. Mildly distended. Incision site clean dry and intact. Colostomy with brown liquidy stool present and air MUSCULOSKELETAL: No clubbing or cyanosis. NEUROLOGIC: Patient is less confused. No focal or lateralizing signs. Cranial nerves II through XII grossly intact. PSYCH: Appropriate affect. Alert and oriented to person, place and time. SKIN: Well perfused. Good skin turgor. ASSESSMENT: 1. Pneumoperitoneum status post exploratory laparotomy with sigmoid resection for perforated sigmoid diverticulitis, descending colostomy creation with rectal stump, reduction and repair of incarcerated left inguinal hernia, Iwona's procedure for perforated sigmoid diverticulitis, drainage of sigmoid divert icular abscess, drainage of left inguinal canal, abscess, placement of intraabdominal #19 Prince drain along the pelvis and placement of universal incisional PREVENA wound VAC system 2. Acute sigmoid diverticulitis, perforated sigmoid diverticulitis 3. Incarcerated left inguinal hernia 4. Sepsis with mental status changes, new 5. Leukocytosis 6. Atrial fibrillation 7. Chronic Coumadin therapy 8. Hypertensive heart disease 9. History of prostate cancer 10. Status post pelvic radiation for prostate cancer 11. Pelvic diverticular abscess, left lower quadrant 12. Ileus PLAN: -Start patient on a clear liquid diet -Add Tylenol as needed for pain control -Prevnar dressing removed today -Continue ICU management -Continue antibiotics -Continue TPN -Continue GI and DVT prophylaxis Physician Pasta Maker note has been reviewed by physician. Signing provider agrees with the documented findings, assessment, and plan of care. Objective - Vital Signs Vital signs: Vital Signs Temp 98.5 F 06/30/20 04:00 Pulse 117 H 06/30/20 11:44 Resp 17 06/30/20 10:00 BP 149/122 06/30/20 10:00 Pulse Ox 96 06/30/20 10:00 Intake & Output 06/29/20 06/30/20 06/30/20 18:59 06:59 18:59 Intake Total 2412 1858.25 360 Output Total 2770 915 285 Balance -358 943.25 75 Weight 93.5 kg Intake: IV 1380 915 360 0.9 120 110 40 Mvi, Adult No.4 with Vit 660 605 220 K 10 ml Trace (Conc-1Ml/ Dose) 1 ml In Amino Acid 5%-D15w+Lytes*E* 1,000 ml @ 55 mls/hr IV .[id number] [facility] Rx#:[id number] Piperacillin-Tazobactam 3 200 100 .375 gm In Sodium Chloride 0.9% 100 ml @ 25 mls/hr IVPB Q8HR [facility] Rx# :[id number] Potassium Chloride 20 meq 200 200 In Water For Injection 1 100ml.bag @ 50 mls/hr IVPB Q2H [facility] Rx#: [id number] metroNIDAZOLE-NS PMX 500 200 mg In Saline 1 100ml.bag @ 100 mls/hr IVPB Q6HR [facility] Rx#:[id number] Intake, IV Titration 1032 943.25 Amount Fat Emulsion 20% 250 ml @ 21 20.833 mls/hr IV MoWeFr@ 1600 [facility] Rx#:[id number] Mvi, Adult No.4 with Vit 1011 943.25 K 10 ml Trace (Conc-1Ml/ Dose) 1 ml In Amino Acid 5%-D15w+Lytes*E* 1,000 ml @ 55 mls/hr IV .[id number] [facility] Rx#:[id number] Output: Drainage 490 130 Abdomen 490 130 Urine 2280 785 285 Other: Voiding Method Indwelling Catheter Indwelling Catheter - Labs CBC & Chem 7: 06/30/20 06:20 06/30/20 06:12 Labs: Abnormal Lab Results - Last 24 Hours (Table) 06/29/20 06/29/20 06/30/20 Range/Units 13:12 17:00 00:07 WBC (3.8-10.6) k/uL PT (9.0-12.0) sec INR (<1.2) Chloride (98-107) mmol/L BUN (9-20) mg/dL Glucose (74-99) mg/dL POC Glucose (mg/dL) 128 H 157 H 130 H (75-99) mg/dL Calcium (8.4-10.2) mg/dL 06/30/20 06/30/20 06/30/20 Range/Units 06:12 06:12 06:20 WBC 14.9 H (3.8-10.6) k/uL PT 21.7 H (9.0-12.0) sec INR 2.2 H (<1.2) Chloride 114 H (98-107) mmol/L BUN 40 H (9-20) mg/dL Glucose 125 H (74-99) mg/dL POC Glucose (mg/dL) (75-99) mg/dL Calcium 7.9 L (8.4-10.2) mg/dL 06/30/20 Range/Units 06:24 WBC (3.8-10.6) k/uL PT (9.0-12.0) sec INR (<1.2) Chloride (98-107) mmol/L BUN (9-20) mg/dL Glucose (74-99) mg/dL POC Glucose (mg/dL) 131 H (75-99) mg/dL Calcium (8.4-10.2) mg/dL Microbiology - Last 24 Hours (Table) 06/28/20 09:20 Blood Culture - Preliminary Blood No Growth after 48 hours 06/28/20 13:20 Gram Stain - Final Sputum Sputum Culture - Final 06/25/20 22:27 Blood Culture - Preliminary Blood No Growth after 96 hours 06/25/20 22:34 Blood Culture - Preliminary Blood No Growth after 96 hours 06/28/20 13:20 Gram Stain - Preliminary Peritoneal Fluid Body Fluid Culture - Preliminary <Sid,Tosha N - Last Filed: 07/05/20 21:40> Subjective Patient seen and evaluated with above. Patient also seen and evaluated with ostomy nurse Timo. I personally discontinued his incisional wound VAC system. ABDOMEN: Incision well approximated without cellulitis or infection or drainage. Ostomy with stool and flatus. No diffuse peritonitis. Appropriate midline incisional tenderness. PLAN: 1. Patient still has persistent leukocytosis. Await recommendations from infectious disease. 2. Continue PT OT with assessment for outpatient rehab. Per discussion with the nurse, family wants patient be discharged home. 3. Review discharge planning pending patient improvement of clinical course. Objective - Vital Signs Vital signs: Vital Signs Temp 98.1 F 07/05/20 15:05 Pulse 89 07/05/20 15:05 Resp 16 07/04/20 15:48 BP 115/81 07/05/20 15:05 Pulse Ox 93 L 07/05/20 15:05 Intake & Output 07/05/20 07/05/20 07/06/20 06:59 18:59 06:59 Intake Total 140 570 Output Total 620 Balance 140 -50 Weight 93.5 kg Intake: IV 100 Piperacillin-Tazobactam 3 100 .375 gm In Sodium Chloride 0.9% 100 ml @ 25 mls/hr IVPB Q8HR [facility] Rx# :[id number] Intake, IV Titration 140 120 Amount Piperacillin-Tazobactam 3 100 .375 gm In Sodium Chloride 0.9% 100 ml @ 25 mls/hr IVPB Q8HR [facility] Rx# :[id number] Sodium Chloride 0.9% 1, 40 120 000 ml @ 20 mls/hr IV . Q24H [facility] Rx#:[id number] Oral 350 Output: Drainage 20 Abdomen 20 Urine 600 Other: Voiding Method Toilet Urinal # Voids 2 2 # Bowel Movements 2 - Labs CBC & Chem 7: 07/05/20 06:28 07/04/20 07:37 Labs: Abnormal Lab Results - Last 24 Hours (Table) 07/05/20 07/05/20 Range/Units 06:28 06:28 RBC 3.41 L (4.30-5.90) m/uL Hgb 9.8 L (13.0-17.5) gm/dL Hct 29.8 L (39.0-53.0) % Lymphocytes # 0.8 L (1.0-4.8) k/uL PT 35.4 H (9.9-11.9) sec INR 3.47 H (0.90-1.11) Assessment and Plan (1) Sigmoid diverticulitis Status: Acute Code(s): K57.32 - DVTRCLI OF LG INT W/O PERFORATION OR ABSCESS W/O BLEEDING SNOMED Code(s): 474483631 (2) Prostate cancer Status: Acute Code(s): C61 - MALIGNANT NEOPLASM OF PROSTATE SNOMED Code(s): 710361564 (3) Atrial fibrillation Status: Acute Code(s): I48.91 - UNSPECIFIED ATRIAL FIBRILLATION SNOMED Code(s): 92825850 (4) Anticoagulated on Coumadin Status: Acute Code(s): Z79.01 - RETIREMENT (CURRENT) USE OF ANTICOAGULANTS SNOMED Code(s): 21341332 (5) Acute tubular necrosis Status: Acute Code(s): N17.0 - ACUTE KIDNEY FAILURE WITH TUBULAR NECROSIS SNOMED Code(s): 51367706
--- NOTE | 2020-06-30 13:00 | P.PN ---
Subjective Progress Note Date: 06/30/20 Principal diagnosis: Acute perforated sigmoid diverticulitis and acute kidney injury 80-year-old white male patient who follows with Dr. Joel, has a past medical history of prostate cancer with prior surgery followed by radiation, hypertension, paroxysmal atrial fibrillation on Coumadin, chronic back pain, who came into the hospital on 06/22/2020 for evaluation of increasing lower abdominal pain of 2 day history with intermittent nausea and vomiting. Patient also complained of constipation. CT of the abdomen and pelvis showed extensive sigmoid diverticulosis with a segment of diverticulitis and some fat and fluid containing left inguinal hernia and few fluid-filled loops of distal ileum suggestive of mild ileus. Initially patient was started on antibiotics, surgic al consultation was obtained, patient was kept nothing by mouth. ID service was consulted, patient was being treated with the combination of Zosyn and Flagyl. Patient developed acute kidney injury likely from hypotension and ATN. Nephrology was consulted. Over the weekend patient has developed atrial fibrillation with RVR. Follow-up abdominal x-ray on 06/25/2020 showed pneumoperitoneum, requiring emergent surgical intervention. In the evening of 06/25/2020 patient underwent Holter laparotomy with sigmoid resection for perforated sigmoid diverticulitis, descending colostomy creation with rectal stump, reduction and repair of incarcerated left inguinal hernia, Luke's procedure for perforated sigmoid diverticulitis, drainage of sigmoid diverticula abscess, drainage of left inguinal canal abscess, and peritoneal lavage. Today is postoperative day #1. Patient is seen in the intensive care unit, patient came to the intensive care unit following his surgery last night extubated, on high flow oxygen at 8 L, and FiO2 is currently down to 3 L and pulse ox is between 97-100%. Patient is arousable, a bit drowsy, but slow to respond, inattentive. CAM-ICU was positive. Hemodynamically patient is stable. Currently on 0.9 normal saline at a rate of 100 ML per hour. No vasoactive drips, no other infusions. Remains nothing by mouth, slight abdominal tenderness, abdominal incision with a wound VAC in place the total of 80 ML drainage since surgery. Denies any difficulty breathing, breathing is comfortable, this morning's chest x-ray shows elevation of the right hemidiaphragm with the possibility of hemidiaphragmatic paralysis, hypoventilatory changes with either mild pulmonary vascular congestion or oral crowding of the vascular markings. Patchy left basilar atelectasis. Patient continues on Zosyn and Flagyl for antibiotic coverage. Today's labs showed white blood cell count of 14.9, hemoglobin of 12.9, INR is 1.8, sodium is 140, potassium is 4.2, chloride is 112, BUN of 46, creatinine is 1.25, patient is receiving Dilantin for pain and discomfort, appears to be in no acute distress. He is in atrial fibrillation with a controlled rate, he is having an echocar diogram done. Patient was reevaluated today on 06/27/20, remains in the ICU, on 2 L nasal cannula, O2 saturations 96%. Patient is intermittently confused, but this morning he seems to be very appropriate. He is on TPN at 30 mL per hour, IV fluid is at 100 mL per hour. Patient is in atrial fibrillation with RVR rate of 1 24/m. That is being addressed by cardiology on the case. Patient is posto perative day #2 underwent exploratory laparotomy, sigmoid resection and colostomy. Labs were all reviewed, CBC is relatively unremarkable. Electrolytes are normal potassium is a bit low at 3.4 being corrected as per protocol. INR is 2.4, therapeutic. Chest x-ray showed minimal right pleural effusion with elevation of the right hemidiaphragm, and streaky atelectasis at the left base. Patient was evaluated today on 06/28/20, patient was transferred back to the ICU early this morning mostly because he was noted by the nurse to have increased work of breathing, and increased abdominal distention with increased abdominal girth. Patient was brought down to the ICU, chest x-ray showed mostly bibasilar atelectasis with significant elevation of the left hemidiaphragm along with the right hemidiaphragm and there was significant large stomach bubble. Nasogastric tube was placed, and significant amount of bilious material over 1 L drained within a few minutes from the stomach. Patient felt a bit nauseated but felt better after the drainage of the stomach. Chest x-ray showed no evidence of pneumonia or evidence of congestive heart failure. ABG showed a pO2 of 70 pCO2 30 pH of 7.47. Basic metabolic profile was normal CBC was relatively normal x- rays of the abdomen and pelvis showed significant dilated bowel loops, and possible ileus or bowel obstruction. This is being addressed by surgery on the case. There was no evidence of free air. Patient was evaluated today in the ICU on 06/29/20, patient is resting in bed, on 4 L nasal cannula SATURATING 95%. Patient pulled out his nasogastric tube early this morning, and since the drainage was minimal, no new tube was placed. Chest x-ray continues to show some minimal atelectasis at the bases, right hemidiaphragm remains elevated. Patient is in atrial fibrillation with RVR, and his Lopressor was increased. Patient remains on Zosyn for his abdominal sepsis remains on TPN at 55 ML's per hour. Colostomy is noted to be slightly functional with minimal serous fluid noted in the colostomy. And the DEJON drain seems to be also functional with serous drainage noted. Patient remains on aspiration precautions, remains nothing by mouth. And his overall clinical status is marginal at best. Remains confused, asking to be sent home today. Labs today showed WBC of 13.4 hemoglobin 13.6 INR is therapeutic at 2.3 left lites are normal potassium is a bit low at 3.1 Reevaluated today on 06/30/20, patient is feeling better today, no nausea no vomiting, no shortness of breath, he feels generally weak. He is on 4 L nasal cannula, O2 saturations 96%. Patient is on TPN at 55 ML per hour. He remains on Zosyn and Flagyl. His colostomy bag is full of dark material. Obviously, his bowels are functioning. Patient continues to have intermittent confusion, but seems much better today. He is tolerating ice chips and popsicles. And I think his oral intake will be advanced by general surgery today. Mostly because there is evidence of gas and stool in his colostomy bag. Reviewed INR is therapeutic and lites are normal WBC is 14.9 hemoglobin is 13.0 chest x-ray showed improvement in his atelectasis, continues to have right hemidiaphragm elevation Objective - Vital Signs Vital signs: Vital Signs Temp 99 F 06/30/20 12:00 Pulse 123 H 06/30/20 12:00 Resp 17 06/30/20 12:00 BP 169/116 06/30/20 12:00 Pulse Ox 96 06/30/20 12:00 Intake & Output 06/29/20 06/30/20 06/30/20 18:59 06:59 18:59 Intake Total 2412 1858.25 360 Output Total 2770 915 285 Balance -358 943.25 75 Weight 93.5 kg Intake: IV 1380 915 360 0.9 120 110 40 Mvi, Adult No.4 with Vit 660 605 220 K 10 ml Trace (Conc-1Ml/ Dose) 1 ml In Amino Acid 5%-D15w+Lytes*E* 1,000 ml @ 55 mls/hr IV .[id number] [facility] Rx#:[id number] Piperacillin-Tazobactam 3 200 100 .375 gm In Sodium Chloride 0.9% 100 ml @ 25 mls/hr IVPB Q8HR [facility] Rx# :[id number] Potassium Chloride 20 meq 200 200 In Water For Injection 1 100ml.bag @ 50 mls/hr IVPB Q2H [facility] Rx#: [id number] metroNIDAZOLE-NS PMX 500 200 mg In Saline 1 100ml.bag @ 100 mls/hr IVPB Q6HR [facility] Rx#:[id number] Intake, IV Titration 1032 943.25 Amount Fat Emulsion 20% 250 ml @ 21 20.833 mls/hr IV MoWeFr@ 1600 [facility] Rx#:[id number] Mvi, Adult No.4 with Vit 1011 943.25 K 10 ml Trace (Conc-1Ml/ Dose) 1 ml In Amino Acid 5%-D15w+Lytes*E* 1,000 ml @ 55 mls/hr IV .[id number] [facility] Rx#:[id number] Output: Drainage 490 130 Abdomen 490 130 Urine 2280 785 285 Other: Voiding Method Indwelling Catheter Indwelling Catheter Indwelling Catheter - Exam GENERAL EXAM: Revealed an 80-year-old white male in no distress. On 4 L nasal cannula. O2 saturation is 96% HEENT: PERRLA, EOMI, neck, neck masses, no JVD, no stridor CHEST: No chest wall deformity. Symmetrical expansion. LUNGS: Symmetrical chest expansion, diminished breath sounds at the bases no rhonchi no wheezes CVS: Irregular irregular rhythm., normal S1 and S2, no gallops, no murmurs, no rubs ABDOMEN: Distended lightly tender. No hepatosplenomegaly, no active bowel sounds., no guarding or rigidity. Colostomy bag is full of gas and stool. EXTREMITIES: No clubbing, no edema, no cyanosis, 2+ pulses and upper and lower extremities. MUSCULOSKELETAL: Muscle strength and tone normal. SPINE: No scoliosis or deformity SKIN: No rashes CENTRAL NERVOUS SYSTEM: Awake, alert oriented 3. Intermittently confused. PSYCHIATRIC: blunted mood and affect. Intact judgment and insight. - Labs CBC & Chem 7: 06/30/20 06:20 06/30/20 06:12 Labs: Abnormal Lab Results - Last 24 Hours (Table) 06/29/20 06/29/20 06/30/20 Range/Units 13:12 17:00 00:07 WBC (3.8-10.6) k/uL PT (9.0-12.0) sec INR (<1.2) Chloride (98-107) mmol/L BUN (9-20) mg/dL Glucose (74-99) mg/dL POC Glucose (mg/dL) 128 H 157 H 130 H (75-99) mg/dL Calcium (8.4-10.2) mg/dL 06/30/20 06/30/20 06/30/20 Range/Units 06:12 06:12 06:20 WBC 14.9 H (3.8-10.6) k/uL PT 21.7 H (9.0-12.0) sec INR 2.2 H (<1.2) Chloride 114 H (98-107) mmol/L BUN 40 H (9-20) mg/dL Glucose 125 H (74-99) mg/dL POC Glucose (mg/dL) (75-99) mg/dL Calcium 7.9 L (8.4-10.2) mg/dL 06/30/20 Range/Units 06:24 WBC (3.8-10.6) k/uL PT (9.0-12.0) sec INR (<1.2) Chloride (98-107) mmol/L BUN (9-20) mg/dL Glucose (74-99) mg/dL POC Glucose (mg/dL) 131 H (75-99) mg/dL Calcium (8.4-10.2) mg/dL Microbiology - Last 24 Hours (Table) 06/28/20 09:20 Blood Culture - Preliminary Blood No Growth after 48 hours 06/28/20 13:20 Gram Stain - Final Sputum Sputum Culture - Final 06/25/20 22:27 Blood Culture - Preliminary Blood No Growth after 96 hours 06/25/20 22:34 Blood Culture - Preliminary Blood No Growth after 96 hours 06/28/20 13:20 Gram Stain - Preliminary Peritoneal Fluid Body Fluid Culture - Preliminary Assessment and Plan Assessment: #1. Acute hypoxic respiratory failure due to postoperative hypoventilation, along with postoperative atelectasis, expected #2. Perforated sigmoid diverticulitis, with pneumoperitoneum, incarcerated left inguinal hernia, status post exploratory laparotomy with sigmoid resection, descending colostomy creation with rectal stump, reduction and repair of incarcerated left inguinal hernia, Luke's procedure, drainage of sigmoid diverticular abscess, drainage of left inguinal canal abscess and peritoneal lavage, placement of wound VAC in the abdominal wall #3. Acute intra-abdominal sepsis related to the above, on Zosyn and Flagyl for antibiotic coverage #4. Acute kidney injury related to acute sepsis, ATN, renal function is improving, and nephrology is on the case #5. A. fib with RVR, the rate is currently better controlled, on anti- coagulation therapy/Coumadin and on beta blockers will placed back on oral Lopressor, 50 mg 3 times a day #6. Hypertension, history of #7. History of prostate cancer, history of surgical resection followed by radiation #8. Osteoarthritis #9 postoperative ileus, resolved, expected Recommendation: Advance enteral feeding as tolerated. In the meantime continue TPN. Continue incentive spirometry. Placed on oral beta blockers. Continue GI and DVT prophylaxis. Continue antibiotics, Zosyn and Flagyl. Continue Coumadin. We'll continue to follow. Time with Patient: Less than 30
--- NOTE | 2020-06-30 14:11 | PN ---
PROGRESS NOTE DATE OF SERVICE: 06/30/2020 REASON FOR FOLLOWUP: Secondary peritonitis and perforated diverticulitis and the patient is currently afebrile. The patient is more awake and alert.: The patient is feeling better. Breathing comfortably. Denies having any chest pain. No shortness of breath, no cough. Abdominal pain is currently controlled. No nausea, no vomiting. PHYSICAL EXAMINATION: Blood pressure is 130/100 with a pulse of 101, temperature 98, he is 98% on 4 L nasal cannula. General description is an elderly male, lying in bed in no distress. RESPIRATORY SYSTEM: Unlabored breathing, clear to auscultation anteriorly. HEART: S1, S2. Regular rate and rhythm. ABDOMEN: Soft, no tenderness. LABS: Hemoglobin is 13.5, white count of 14.9, BUN of 14, creatinine 0.88. DIAGNOSTIC IMPRESSION AND PLAN: Patient with secondary peritonitis from perforated sigmoid diverticulitis, status post diverting colostomy. Abdominal culture predominate anaerobes. Patient is covered with Zosyn. White count mildly elevated, will monitor closely. Continue supportive care. MMODL / IJN: [id number] /
[2020-06-30] MEDS: ACETAMINOPHEN TAB 500 MG TAB PO PRN (16:01)
[2020-06-30] MEDS: FAT EMULSION 20% 250 ML IV SCH (16:11)
--- NOTE | 2020-06-30 16:27 | P.PN ---
Progress Note - Text Progress Note Date: 06/30/20 Patient seen and evaluated with ostomy nurse earlier today. Patient ostomy is functioning diet was advanced. Discussed with ballpoint pen cartridge tester that family wants patient home on Friday immediately after discharge. On review of physical therapy and occupational therapy notes, recommendation for subacute rehab due to generalized weakness. I do agree with their assessment. I called the patient's on her telephone number left voicemail. Recommended subacute rehab after discharge as patient needs moderate help for movement and strength training which may be beyond care at home. I left contact information for the unit in the ICU. We'll reassess for Friday.
[2020-06-30 17:42] LABS: Glucose,Whole Blood 145 mg/dL (75-99)
[2020-06-30] MEDS: SODIUM CHLORIDE 0.9% 1,000 ML IV SCH (17:43)
--- NOTE | 2020-06-30 17:59 | P.PN ---
Progress Note - Text Progress Note Date: 06/30/20 Chief Complaint: Abdominal pain History of presenting complaint: This is a very pleasant 80-year-old patient of Dr. Joel. Chronic stable medical conditions include paroxysmal atrial fibrillation on Coumadin, hypertension, prostate cancer treated by surgery and followed by radiation treatment a year later, back surgery. The last 2 or 3 days patient with having increasing lower abdominal pain started off with nausea after he presented today also vomited couple of times. Denied any fever and chills. Patient baseline normally has 2 or 3 bowel movements a day. Last bowel movement was 2 days ago. Abdomen felt distended. Computed tomography scan of the abdomen that showed extensive sigmoid diverticulosis with asymmetry with a segment of diverticulitis and some fat and fluid containing left inguinal hernia and few fluid-filled loops of distal ileum. Admitted with acute sigmoid diverticular to severe, with ileus. Coumadin toxicity for which received vitamin K.on June 25 evening patient was taken to the OR by Dr. Kwok. Found to have a perforated sigmoid diverticulitis with stool and pus in the abdomen.patient underwent sigmoid resection followed by colostomy creation and repair of incarcerated left inguinal hernia/Luke's procedure. Pericardial large. Drain was placed. An incisional wound VAC was placed. Postprocedure, admitted to the ICU. Started on IV TPN and lipids. On IV Zosyn and Flagyl. Patient was moved out of the ICU. Patient had a postop ileus. Had a NG placed.related to atrial fibrillation. Accidentally patient pulled the NG tube out. [id number] in atrial fibrillation. Rate controlled. Some stool out in the colostomy bag. Tired. at the bedside.started on clear liquids by surgery today. Review of systems: Was done for constitutional, cardiovascular, GI, pulmonary. relevant finding as above Active Medications Acetaminophen (Acetaminophen Tab 500 Mg Tab) 1,000 mg PO Q6HR PRN PRN Reason: Fever and/ or Mild Pain Last Admin: 06/30/20 16:01 Dose: 1,000 mg Documented by: Albuterol/Ipratropium (Ipratropium-Albuterol 3 Ml Neb) 3 ml INHALATION RT-Q4H [facility] Last Admin: 06/30/20 15:39 Dose: 3 ml Documented by: Albuterol/Ipratropium (Ipratropium-Albuterol 3 Ml Neb) 3 ml INHALATION RT-QID PRN PRN Reason: Shortness Of Breath Or Wheezing Alvimopan (Alvimopan 12 Mg Capsule) 12 mg PO BID [facility] Stop: 07/05/20 09:01 Last Admin: 06/30/20 11:56 Dose: 12 mg Documented by: Amlodipine Besylate (Amlodipine 10 Mg Tab) 10 mg PO DAILY [facility] Last Admin: 06/30/20 11:56 Dose: 10 mg Documented by: Furosemide (Furosemide 10 Mg/Ml 4 Ml Vial) 40 mg IV DAILY [facility] Last Admin: 06/30/20 11:55 Dose: 40 mg Documented by: Hydralazine HCl (Hydralazine Hcl 20 Mg/Ml 1 Ml Vial) 15 mg IVP Q4HR PRN PRN Reason: Blood Pressure - High Last Admin: 06/29/20 06:21 Dose: 15 mg Documented by: Piperacillin Sod/Tazobactam (Sod 3.375 gm/ Sodium Chloride) 100 mls @ 25 mls/hr IVPB Q8HR [facility] Last Admin: 06/30/20 16:01 Dose: 25 mls/hr Documented by: Metronidazole 500 mg/ IV (Solution) 100 mls @ 100 mls/hr IVPB Q6HR [facility] Last Admin: 06/30/20 17:43 Dose: 100 mls/hr Documented by: Sodium Chloride (Saline 0.9%) 1,000 mls @ 20 mls/hr IV .Q24H [facility] Last Admin: 06/30/20 17:43 Dose: Not Given Documented by: Fat Emulsion Intravenous (Lipids 20%) 250 mls @ 20.833 mls/hr IV MoWeFr@1600 [facility] Last Admin: 06/30/20 16:11 Dose: 20.833 mls/hr Documented by: Parenteral Vitamin Supplement 10 ml/ Chromium/Copper/Manganese/Seleni/Zn 1 ml/Potassium Chloride 20 meq/Amino Ac/Electrol/Dextrose/Calcium 1,021 mls @ 55 mls/hr IV .[id number] [facility] Insulin Aspart (Insulin Aspart (Novolog) 100 Unit/Ml Vial) 0 unit SQ ACHS [facility]; Protocol Last Admin: 06/30/20 17:43 Dose: 1 unit Documented by: Metoprolol Tartrate (Metoprolol Tartrate 50 Mg Tab) 50 mg PO TID [facility] Last Admin: 06/30/20 16:11 Dose: 50 mg Documented by: Miscellaneous Information (Potassium Replacement Protocol 1 Each Misc) 1 each MISCELLANE DAILY PRN; Protocol PRN Reason: Per Protocol Miscellaneous Information (Warfarin Per Pharmacy) 0 each MISCELLANE DIRECTED PRN PRN Reason: ANTICOAG Naloxone HCl (Naloxone 0.4 Mg/Ml 1 Ml Vial) 0.2 mg IV Q2M PRN PRN Reason: Opioid Reversal Ondansetron HCl (Ondansetron 4 Mg/2 Ml Vial) 4 mg IVP Q6HR PRN PRN Reason: Nausea And Vomiting Last Admin: 06/27/20 08:40 Dose: 4 mg Documented by: Pantoprazole Sodium (Pantoprazole 40 Mg/10 Ml Vial) 40 mg IVP DAILY [facility] Last Admin: 06/30/20 09:25 Dose: 40 mg Documented by: Prochlorperazine Maleate (Prochlorperazine 10 Mg Tab) 10 mg PO Q6HR PRN PRN Reason: Nausea And Vomiting Trazodone HCl (Trazodone Hcl 50 Mg Tab) 50 mg PO [facility] Last Admin: 06/29/20 20:09 Dose: Not Given Documented by: Warfarin Sodium (Warfarin 2 Mg Tab) 2 mg PO ONCE@1800 ONE; Protocol Stop: 06/30/20 18:01 Last Admin: 06/30/20 17:43 Dose: 2 mg Documented by: Physical examination: VITAL SIGNS: 98.5, 87, 17, 133 x 1 03, 98% on 4 L GENERAL: Laying in bed, tired, awake EYES: Pupils equal. Conjunctiva normal. HEENT: External appearance of nose and ears normal, oral cavity dry, NG tube to suction NECK: JVD not raised; masses not palpable. HEART: heart sounds irregularl; no edema. LUNGS: Respiratory rate increased; decreased breath sounds. ABDOMEN: Soft,tender, DEJON drain, incisional wound VAC, no mass palpable, scrotal swelling, colostomy back with some liquid stool PSYCH: AO - times three. Mood and affect normal INVESTIGATIONS, reviewed in the clinical context: white count 14.9 hemoglobin 13 INR 2.2 potassium 3.6 creatinine 0.88 Previous testing White count 15.4 hemoglobin 13.5 platelets 196 INR 4.8 potassium 3.7 creatinine 1.06 Computed tomography scan of the abdomen pelvis-sigmoid diverticulosis with diverticulitis. No free air. Some air-fluid levels in the distal ileum Abdominal x-ray-06/25/2020 film personally reviewed by me shows free air Abdominal x-ray film dilated loops of bowel Assessment: -Acute severe sigmoid diverticulitis-with perforation-leading to sigmoid resection with Iwona's procedure and a colostomy. Patient has DEJON drain -Acute postop ileus causing respiratory compromise, followed by NG tube to suction-accidentally pulled out by patient-clinically improving -Secondary peritonitis secondary to ruptured viscus, causing sepsis -repair- Incarcerated left inguinal hernia -Acute kidney injury likely from improved -Colonic diverticulosis -Paroxysmal atrial fibrillation chronically on Coumadin-uncontrolled -Coumadin monitoring with toxicity-give vitamin K.-Corrected -Prostate cancer with a history of surgery and radiation treatment -Hypoalbuminemia-reactive Plan: Remains on TPN and lipids. IV Flagyl, IV Zosyn. started on clear liquids. Had some stool liquid in the colostomy bag. the patient to be out of bed. Discussed with the . Questions answered.
[2020-06-30] MEDS ORDERED: WARFARIN 2 MG TAB PO ONE (18:00)
[2020-06-30 20:31] LABS: Glucose,Whole Blood 135 mg/dL (75-99)
[2020-06-30] MEDS: traZODone HCL 50 MG TAB PO SCH (21:01)
[2020-07-01] MEDS: metroNIDAZOLE-NS PMX 500 MG in SALINE 1 100ML.BAG IVPB SCH ×4 (00:18→18:47)
[2020-07-01] MEDS: PIPERACILLIN-TAZOBACTAM 3.375 GM in SODIUM CHLORIDE 0.9% 100 ML IVPB SCH ×3 (00:19→16:58)
[2020-07-01] MEDS: IPRATROPIUM-ALBUTEROL 3 ML NEB INHALATION SCH ×6 (00:34→21:13)
[2020-07-01] MEDS: MVI, ADULT NO.4 WITH VIT K 10 ML, TRACE (CONC-1ML/DOSE) 1 ML, POTASSIUM CHLORIDE 20 MEQ... IV SCH ×8 (05:15→18:47)
[2020-07-01 05:52] LABS: INR 2.3 (<1.2); Prothrombin Time 21.9 sec (9.0-12.0)
[2020-07-01 05:57] LABS: African American GFR (CKD) >90 (>60 ml/min/1.73 sqM); Anion Gap 0 mmol/L; Blood Urea Nitrogen 35 mg/dL (9-20); Calcium 7.8 mg/dL (8.4-10.2); Carbon Dioxide 29 mmol/L (22-30); Chloride 110 mmol/L (98-107); Glucose 99 mg/dL (74-99); Magnesium 1.9 mg/dL (1.6-2.3); Non-African American GFR(CKD) 80 (>60 ml/min/1.73 sqM); Phosphorus 2.9 mg/dL (2.5-4.5); Potassium 3.3 mmol/L (3.5-5.1); Sodium 139 mmol/L (137-145)
[2020-07-01 06:06] LABS: Basophils % (A) 0 %; Eosinophils # (A) 0.4 k/uL (0-0.7); Eosinophils % (A) 3 %; HCT 38.9 % (39.0-53.0); Hypochromasia Slight; Lymphocytes # (A) 0.7 k/uL (1.0-4.8); Lymphocytes % (A) 5 %; MCH 27.2 pg (25.0-35.0); MCHC 30.9 g/dL (31.0-37.0); Mean Platelet Volume 7.4; Monocytes # (A) 0.7 k/uL (0-1.0); Monocytes % (A) 5 %; Neutrophils # (A) 11.4 k/uL (1.3-7.7); Neutrophils % (A) 85 %; Platelet Count 263 k/uL (150-450); RBC 4.42 m/uL (4.30-5.90); RDW 14.7 % (11.5-15.5); WBC 13.5 k/uL (3.8-10.6)
[2020-07-01] MEDS: INSULIN ASPART (NovoLOG) 100 UNIT/ML VIAL SQ SCH ×4 (06:08→20:54)
[2020-07-01] MEDS: POTASSIUM CHLORIDE ER 20 MEQ TAB.ER PO SCH ×3 (06:14→21:01)
[2020-07-01] MEDS: ACETAMINOPHEN TAB 500 MG TAB PO PRN (06:14)
--- NOTE | 2020-07-01 06:31 | XR ---
EXAMINATION TYPE: XR chest 1V portable DATE OF EXAM: 07/01/2020 CLINICAL HISTORY: Difficulty breathing progress study. TECHNIQUE: Single AP portable semiupright view of the chest is obtained. COMPARISON: Chest x-ray from one day earlier and older studies. CT chest February 21, 2020. FINDINGS: Stable right-sided PICC line. Persistent low lung volumes with elevated right hemidiaphrag m and bibasilar opacities. Cardiac silhouette size stable and upper limits of normal with atheroscler otic and ectatic thoracic aorta are redemonstrated. Multilevel spurring in the spine redemonstrated. Overlying EKG leads redemonstrated. IMPRESSION: Persistent low lung volumes and elevated right hemidiaphragm. Persistent patchy bibasilar acute infiltrate and/or atelectasis and suspected small bilateral pleural effusions. No significant change from one day earlier.
--- NOTE | 2020-07-01 07:14 | P.PN ---
Subjective Progress Note Date: 07/01/20 Principal diagnosis: Long-standing persistent atrial fibrillation This is a pleasant 78-year-old gentleman with history of long-standing persistent atrial fibrillation as well as hypertension who developed sigmoid diverticulitis and pneumoperitoneum and he underwent surgery. We consulted to see the patient for the management of atrial fibrillation and also for preop cardiac assessment before noncardiac surgery. The patient was seen today 07/01/2020. He continues to be in atrial fibrillation was controlled heart rate. He continues to be hemodynamically stable. He is back on Coumadin by mouth as well and the INR this morning is above 2. From the cardiovascular standpoint overview we'll continue the current medical regimen and continue follow-up with the patient. Objective - Vital Signs Vital signs: Vital Signs Temp 98.3 F 07/01/20 04:00 Pulse 93 07/01/20 07:00 Resp 15 07/01/20 07:00 BP 118/84 07/01/20 07:00 Pulse Ox 97 07/01/20 07:00 Intake & Output 06/30/20 07/01/20 07/01/20 18:59 06:59 18:59 Intake Total 1243 927 65 Output Total 3340 1335 40 Balance -2097 -408 25 Weight 93.5 kg Intake: IV 1243 927 65 0.9 120 120 10 Fat Emulsion 20% 250 ml @ 63 147 20.833 mls/hr IV MoWeFr@ 1600 [facility] Rx#:[id number] Mvi, Adult No.4 with Vit 660 660 55 K 10 ml Trace (Conc-1Ml/ Dose) 1 ml In Amino Acid 5%-D15w+Lytes*E* 1,000 ml @ 55 mls/hr IV .[id number] [facility] Rx#:[id number] Piperacillin-Tazobactam 3 200 .375 gm In Sodium Chloride 0.9% 100 ml @ 25 mls/hr IVPB Q8HR [facility] Rx# :[id number] metroNIDAZOLE-NS PMX 500 200 mg In Saline 1 100ml.bag @ 100 mls/hr IVPB Q6HR [facility] Rx#:[id number] Output: Drainage 270 160 Abdomen 270 160 Urine 2670 1025 40 Stool 400 150 Other: Voiding Method Indwelling Catheter Indwelling Catheter - Constitutional General appearance: Present: no acute distress - Respiratory Respiratory: bilateral: diminished - Cardiovascular Rhythm: irregularly irregular - Labs CBC & Chem 7: 07/01/20 05:03 07/01/20 05:03 Labs: Abnormal Lab Results - Last 24 Hours (Table) 06/30/20 06/30/20 07/01/20 Range/Units 17:40 20:30 05:03 WBC (3.8-10.6) k/uL Hgb (13.0-17.5) gm/dL Hct (39.0-53.0) % MCHC (31.0-37.0) g/dL Neutrophils # (1.3-7.7) k/uL Lymphocytes # (1.0-4.8) k/uL PT (9.0-12.0) sec INR (<1.2) Potassium 3.3 L (3.5-5.1) mmol/L Chloride 110 H (98-107) mmol/L BUN 35 H (9-20) mg/dL POC Glucose (mg/dL) 145 H 135 H (75-99) mg/dL Calcium 7.8 L (8.4-10.2) mg/dL 07/01/20 07/01/20 Range/Units 05:03 05:03 WBC 13.5 H (3.8-10.6) k/uL Hgb 12.0 L (13.0-17.5) gm/dL Hct 38.9 L (39.0-53.0) % MCHC 30.9 L (31.0-37.0) g/dL Neutrophils # 11.4 H (1.3-7.7) k/uL Lymphocytes # 0.7 L (1.0-4.8) k/uL PT 21.9 H (9.0-12.0) sec INR 2.3 H (<1.2) Potassium (3.5-5.1) mmol/L Chloride (98-107) mmol/L BUN (9-20) mg/dL POC Glucose (mg/dL) (75-99) mg/dL Calcium (8.4-10.2) mg/dL Microbiology - Last 24 Hours (Table) 06/25/20 22:34 Blood Culture - Preliminary Blood No Growth after 120 hours 06/25/20 22:27 Blood Culture - Preliminary Blood No Growth after 120 hours 06/28/20 13:20 Gram Stain - Preliminary Peritoneal Fluid Body Fluid Culture - Preliminary 06/28/20 09:20 Blood Culture - Preliminary Blood No Growth after 48 hours 06/28/20 13:20 Gram Stain - Final Sputum Sputum Culture - Final Assessment and Plan Assessment: Assessment #1 sigmoid diverticulitis and pneumoperitoneum #2 long-standing persistent atrial fibrillation #3 multiple comorbid conditions Plan #1 continue the current medical regimen
[2020-07-01] MEDS: ALVIMOPAN 12 MG CAPSULE PO SCH (09:28)
[2020-07-01] MEDS: METOPROLOL TARTRATE 50 MG TAB PO SCH ×3 (09:42→21:01)
[2020-07-01] MEDS: PANTOPRAZOLE 40 MG/10 ML VIAL IVP SCH (09:42)
[2020-07-01] MEDS: FUROSEMIDE 10 MG/ML 4 ML VIAL IV SCH (09:42)
[2020-07-01] MEDS: amLODIPine 10 MG TAB PO SCH (09:42)
--- NOTE | 2020-07-01 10:24 | P.PN ---
Subjective Progress Note Date: 07/01/20 Principal diagnosis: Diverticulitis Patient doing well today. Complaining of mild fatigue. Some bloating. No nausea or vomiting. Ostomy functioning. White blood cell count 13.5. Tolerating clear liquids. Objective - Vital Signs Vital signs: Vital Signs Temp 97.8 F 07/01/20 08:00 Pulse 92 07/01/20 10:00 Resp 18 07/01/20 10:00 BP 127/94 07/01/20 10:00 Pulse Ox 96 07/01/20 10:00 Intake & Output 06/30/20 07/01/20 07/01/20 18:59 06:59 18:59 Intake Total 1243 927 85 Output Total 3340 1335 170 Balance -2096 - -85 Weight 93.5 kg Intake: IV 1243 927 85 0.9 120 120 30 Fat Emulsion 20% 250 ml @ 63 147 20.833 mls/hr IV MoWeFr@ 1600 [facility] Rx#:[id number] Mvi, Adult No.4 with Vit 660 660 55 K 10 ml Trace (Conc-1Ml/ Dose) 1 ml In Amino Acid 5%-D15w+Lytes*E* 1,000 ml @ 55 mls/hr IV .[id number] [facility] Rx#:[id number] Piperacillin-Tazobactam 3 200 .375 gm In Sodium Chloride 0.9% 100 ml @ 25 mls/hr IVPB Q8HR [facility] Rx# :[id number] metroNIDAZOLE-NS PMX 500 200 mg In Saline 1 100ml.bag @ 100 mls/hr IVPB Q6HR [facility] Rx#:[id number] Output: Drainage 270 160 Abdomen 270 160 Urine 2670 1025 170 Stool 400 150 Other: Voiding Method Indwelling Catheter Indwelling Catheter Indwelling Catheter - Exam Abdomen: Soft, minimally distended, incision dressing clean and dry, mild tenderness, ostomy functioning - Labs CBC & Chem 7: 07/01/20 05:03 07/01/20 05:03 Labs: Abnormal Lab Results - Last 24 Hours (Table) 06/30/20 06/30/20 07/01/20 Range/Units 17:40 20:30 05:03 WBC (3.8-10.6) k/uL Hgb (13.0-17.5) gm/dL Hct (39.0-53.0) % MCHC (31.0-37.0) g/dL Neutrophils # (1.3-7.7) k/uL Lymphocytes # (1.0-4.8) k/uL PT (9.0-12.0) sec INR (<1.2) Potassium 3.3 L (3.5-5.1) mmol/L Chloride 110 H (98-107) mmol/L BUN 35 H (9-20) mg/dL POC Glucose (mg/dL) 145 H 135 H (75-99) mg/dL Calcium 7.8 L (8.4-10.2) mg/dL 07/01/20 07/01/20 Range/Units 05:03 05:03 WBC 13.5 H (3.8-10.6) k/uL Hgb 12.0 L (13.0-17.5) gm/dL Hct 38.9 L (39.0-53.0) % MCHC 30.9 L (31.0-37.0) g/dL Neutrophils # 11.4 H (1.3-7.7) k/uL Lymphocytes # 0.7 L (1.0-4.8) k/uL PT 21.9 H (9.0-12.0) sec INR 2.3 H (<1.2) Potassium (3.5-5.1) mmol/L Chloride (98-107) mmol/L BUN (9-20) mg/dL POC Glucose (mg/dL) (75-99) mg/dL Calcium (8.4-10.2) mg/dL Microbiology - Last 24 Hours (Table) 06/25/20 22:34 Blood Culture - Preliminary Blood No Growth after 120 hours 06/25/20 22:27 Blood Culture - Preliminary Blood No Growth after 120 hours 06/28/20 13:20 Gram Stain - Preliminary Peritoneal Fluid Body Fluid Culture - Preliminary 06/28/20 09:20 Blood Culture - Preliminary Blood No Growth after 48 hours 06/28/20 13:20 Gram Stain - Final Sputum Sputum Culture - Final Assessment and Plan (1) Diverticulitis Narrative/Plan: Will advance diet to full liquids. Continue antibiotics. Continue physical therapy. Current Visit: Yes Status: Acute Code(s): K57.92 - DVTRCLI OF INTEST, PART UNSP, W/O PERF OR ABSCESS W/O BLEED SNOMED Code(s): 037396846
--- NOTE | 2020-07-01 10:52 | P.PN ---
Subjective Progress Note Date: 07/01/20 Principal diagnosis: This 78-year-old male seen in consultation because of acute kidney injury, status post exploratory laparotomy for sigmoid resection after a perforated sigmoid diverticulitis dated 06/25/2020 Currently he is in the ICU on TPN his diet is being advanced from clear liquid to full liquid. He has poor appetite. No fever chills cough no shortness of breath. His only complaint is tiredness Vital signs are stable good urine output and creatinine is normal. He has mild hypokalemia, on TPN Objective - Vital Signs Vital signs: Vital Signs Temp 97.8 F 07/01/20 08:00 Pulse 92 07/01/20 10:00 Resp 18 07/01/20 10:00 BP 127/94 07/01/20 10:00 Pulse Ox 96 07/01/20 10:00 Intake & Output 06/30/20 07/01/20 07/01/20 18:59 06:59 18:59 Intake Total 1243 927 185 Output Total 3340 1335 335 Balance -2097 -408 -150 Weight 93.5 kg Intake: IV 1243 927 185 0.9 120 120 30 Fat Emulsion 20% 250 ml @ 63 147 20.833 mls/hr IV MoWeFr@ 1600 [facility] Rx#:[id number] Mvi, Adult No.4 with Vit 660 660 55 K 10 ml Trace (Conc-1Ml/ Dose) 1 ml In Amino Acid 5%-D15w+Lytes*E* 1,000 ml @ 55 mls/hr IV .[id number] [facility] Rx#:[id number] Piperacillin-Tazobactam 3 200 .375 gm In Sodium Chloride 0.9% 100 ml @ 25 mls/hr IVPB Q8HR [facility] Rx# :[id number] metroNIDAZOLE-NS PMX 500 200 100 mg In Saline 1 100ml.bag @ 100 mls/hr IVPB Q6HR [facility] Rx#:[id number] Output: Drainage 270 160 65 Abdomen 270 160 65 Urine 2670 1025 170 Stool 400 150 100 Other: Voiding Method Indwelling Catheter Indwelling Catheter Indwelling Catheter Awake alert oriented HEENT exam no JVP neck is supple no facial asymmetry Lungs clear to auscultation good air entry bilaterally. Heart sounds unremarkable normal sinus rhythm on the monitor Abdomen soft colostomy and. Extremity examination reveals no edema Neurologically awake alert oriented but sitting - Labs CBC & Chem 7: 07/01/20 05:03 07/01/20 05:03 Labs: Abnormal Lab Results - Last 24 Hours (Table) 06/30/20 06/30/20 07/01/20 Range/Units 17:40 20:30 05:03 WBC (3.8-10.6) k/uL Hgb (13.0-17.5) gm/dL Hct (39.0-53.0) % MCHC (31.0-37.0) g/dL Neutrophils # (1.3-7.7) k/uL Lymphocytes # (1.0-4.8) k/uL PT (9.0-12.0) sec INR (<1.2) Potassium 3.3 L (3.5-5.1) mmol/L Chloride 110 H (98-107) mmol/L BUN 35 H (9-20) mg/dL POC Glucose (mg/dL) 145 H 135 H (75-99) mg/dL Calcium 7.8 L (8.4-10.2) mg/dL 07/01/20 07/01/20 Range/Units 05:03 05:03 WBC 13.5 H (3.8-10.6) k/uL Hgb 12.0 L (13.0-17.5) gm/dL Hct 38.9 L (39.0-53.0) % MCHC 30.9 L (31.0-37.0) g/dL Neutrophils # 11.4 H (1.3-7.7) k/uL Lymphocytes # 0.7 L (1.0-4.8) k/uL PT 21.9 H (9.0-12.0) sec INR 2.3 H (<1.2) Potassium (3.5-5.1) mmol/L Chloride (98-107) mmol/L BUN (9-20) mg/dL POC Glucose (mg/dL) (75-99) mg/dL Calcium (8.4-10.2) mg/dL Microbiology - Last 24 Hours (Table) 06/25/20 22:34 Blood Culture - Preliminary Blood No Growth after 120 hours 06/25/20 22:27 Blood Culture - Preliminary Blood No Growth after 120 hours 06/28/20 13:20 Gram Stain - Preliminary Peritoneal Fluid Body Fluid Culture - Preliminary 06/28/20 09:20 Blood Culture - Preliminary Blood No Growth after 48 hours 06/28/20 13:20 Gram Stain - Final Sputum Sputum Culture - Final Assessment and Plan Assessment: Impression 1. Acute kidney injury from prerenal from perforated diverticulitis. Creatinine down to normal good urine output. 2. Hypokalemia is secondary to diuretics and low intake. 3. Status post perforated diverticulitis and sigmoid resection and a colostomy Recommendations 1. Replace potassium via oral, he'll require another 40 mEq. . Monitor lites. 3. Reduce Lasix IV 40, to 20 mg by mouth
[2020-07-01 11:45] LABS: Glucose,Whole Blood 120 mg/dL (75-99)
--- NOTE | 2020-07-01 12:23 | P.PN ---
Subjective Progress Note Date: 07/01/20 Principal diagnosis: Acute perforated sigmoid diverticulitis and acute kidney injury 80-year-old white male patient who follows with Dr. Joel, has a past medical history of prostate cancer with prior surgery followed by radiation, hypertension, paroxysmal atrial fibrillation on Coumadin, chronic back pain, who came into the hospital on 06/22/2020 for evaluation of increasing lower abdominal pain of 2 day history with intermittent nausea and vomiting. Patient also complained of constipation. CT of the abdomen and pelvis showed extensive sigmoid diverticulosis with a segment of diverticulitis and some fat and fluid containing left inguinal hernia and few fluid-filled loops of distal ileum suggestive of mild ileus. Initially patient was started on antibiotics, surgic al consultation was obtained, patient was kept nothing by mouth. ID service was consulted, patient was being treated with the combination of Zosyn and Flagyl. Patient developed acute kidney injury likely from hypotension and ATN. Nephrology was consulted. Over the weekend patient has developed atrial fibrillation with RVR. Follow-up abdominal x-ray on 06/25/2020 showed pneumoperitoneum, requiring emergent surgical intervention. In the evening of 06/25/2020 patient underwent Holter laparotomy with sigmoid resection for perforated sigmoid diverticulitis, descending colostomy creation with rectal stump, reduction and repair of incarcerated left inguinal hernia, Luke's procedure for perforated sigmoid diverticulitis, drainage of sigmoid diverticula abscess, drainage of left inguinal canal abscess, and peritoneal lavage. Today is postoperative day #1. Patient is seen in the intensive care unit, patient came to the intensive care unit following his surgery last night extubated, on high flow oxygen at 8 L, and FiO2 is currently down to 3 L and pulse ox is between 97-100%. Patient is arousable, a bit drowsy, but slow to respond, inattentive. CAM-ICU was positive. Hemodynamically patient is stable. Currently on 0.9 normal saline at a rate of 100 ML per hour. No vasoactive drips, no other infusions. Remains nothing by mouth, slight abdominal tenderness, abdominal incision with a wound VAC in place the total of 80 ML drainage since surgery. Denies any difficulty breathing, breathing is comfortable, this morning's chest x-ray shows elevation of the right hemidiaphragm with the possibility of hemidiaphragmatic paralysis, hypoventilatory changes with either mild pulmonary vascular congestion or oral crowding of the vascular markings. Patchy left basilar atelectasis. Patient continues on Zosyn and Flagyl for antibiotic coverage. Today's labs showed white blood cell count of 14.9, hemoglobin of 12.9, INR is 1.8, sodium is 140, potassium is 4.2, chloride is 112, BUN of 46, creatinine is 1.25, patient is receiving Dilantin for pain and discomfort, appears to be in no acute distress. He is in atrial fibrillation with a controlled rate, he is having an echocar diogram done. Patient was reevaluated today on 06/27/20, remains in the ICU, on 2 L nasal cannula, O2 saturations 96%. Patient is intermittently confused, but this morning he seems to be very appropriate. He is on TPN at 30 mL per hour, IV fluid is at 100 mL per hour. Patient is in atrial fibrillation with RVR rate of 1 24/m. That is being addressed by cardiology on the case. Patient is posto perative day #2 underwent exploratory laparotomy, sigmoid resection and colostomy. Labs were all reviewed, CBC is relatively unremarkable. Electrolytes are normal potassium is a bit low at 3.4 being corrected as per protocol. INR is 2.4, therapeutic. Chest x-ray showed minimal right pleural effusion with elevation of the right hemidiaphragm, and streaky atelectasis at the left base. Patient was evaluated today on 06/28/20, patient was transferred back to the ICU early this morning mostly because he was noted by the nurse to have increased work of breathing, and increased abdominal distention with increased abdominal girth. Patient was brought down to the ICU, chest x-ray showed mostly bibasilar atelectasis with significant elevation of the left hemidiaphragm along with the right hemidiaphragm and there was significant large stomach bubble. Nasogastric tube was placed, and significant amount of bilious material over 1 L drained within a few minutes from the stomach. Patient felt a bit nauseated but felt better after the drainage of the stomach. Chest x-ray showed no evidence of pneumonia or evidence of congestive heart failure. ABG showed a pO2 of 70 pCO2 30 pH of 7.47. Basic metabolic profile was normal CBC was relatively normal x- rays of the abdomen and pelvis showed significant dilated bowel loops, and possible ileus or bowel obstruction. This is being addressed by surgery on the case. There was no evidence of free air. Patient was evaluated today in the ICU on 06/29/20, patient is resting in bed, on 4 L nasal cannula SATURATING 95%. Patient pulled out his nasogastric tube early this morning, and since the drainage was minimal, no new tube was placed. Chest x-ray continues to show some minimal atelectasis at the bases, right hemidiaphragm remains elevated. Patient is in atrial fibrillation with RVR, and his Lopressor was increased. Patient remains on Zosyn for his abdominal sepsis remains on TPN at 55 ML's per hour. Colostomy is noted to be slightly functional with minimal serous fluid noted in the colostomy. And the DEJON drain seems to be also functional with serous drainage noted. Patient remains on aspiration precautions, remains nothing by mouth. And his overall clinical status is marginal at best. Remains confused, asking to be sent home today. Labs today showed WBC of 13.4 hemoglobin 13.6 INR is therapeutic at 2.3 left lites are normal potassium is a bit low at 3.1 Reevaluated today on 06/30/20, patient is feeling better today, no nausea no vomiting, no shortness of breath, he feels generally weak. He is on 4 L nasal cannula, O2 saturations 96%. Patient is on TPN at 55 ML per hour. He remains on Zosyn and Flagyl. His colostomy bag is full of dark material. Obviously, his bowels are functioning. Patient continues to have intermittent confusion, but seems much better today. He is tolerating ice chips and popsicles. And I think his oral intake will be advanced by general surgery today. Mostly because there is evidence of gas and stool in his colostomy bag. Reviewed INR is therapeutic and lites are normal WBC is 14.9 hemoglobin is 13.0 chest x-ray showed improvement in his atelectasis, continues to have right hemidiaphragm elevation Reevaluated today on 07/01/20, patient remains in the ICU, he is presently an overflow. Patient is continuing to do well, seems to be more appropriate, less confused, hemodynamically stable, and he is on 3 L nasal cannula. Patient is tolerating clear diet quite well. Remains on TPN at 55 ML per hour, and I will cut it down as the patient is tolerating oral intake. I plan to transfer the patient today to a medical surgical bed with telemetry. Chest x-ray is reassuring except for minimal atelectasis. WBC count is 13.5 hemoglobin is 12 lites are normal potassium is a bit low being corrected as per protocol. INR is 2.3, therapeutic Objective - Vital Signs Vital signs: Vital Signs Temp 98.0 F 07/01/20 12:00 Pulse 91 07/01/20 12:00 Resp 16 07/01/20 12:00 BP 128/89 07/01/20 12:00 Pulse Ox 96 07/01/20 11:00 Intake & Output 06/30/20 07/01/20 07/01/20 18:59 06:59 18:59 Intake Total 1243 927 195 Output Total 3340 1333 875 Balance -5906 -110 -932 Weight 93.5 kg Intake: IV 1243 927 195 0.9 120 120 40 Fat Emulsion 20% 250 ml @ 63 147 20.833 mls/hr IV MoWeFr@ 1600 [facility] Rx#:[id number] Mvi, Adult No.4 with Vit 660 660 55 K 10 ml Trace (Conc-1Ml/ Dose) 1 ml In Amino Acid 5%-D15w+Lytes*E* 1,000 ml @ 55 mls/hr IV .[id number] [facility] Rx#:[id number] Piperacillin-Tazobactam 3 200 .375 gm In Sodium Chloride 0.9% 100 ml @ 25 mls/hr IVPB Q8HR [facility] Rx# :[id number] metroNIDAZOLE-NS PMX 500 200 100 mg In Saline 1 100ml.bag @ 100 mls/hr IVPB Q6HR [facility] Rx#:[id number] Output: Drainage 270 160 65 Abdomen 270 160 65 Urine 2670 1025 710 Stool 400 150 100 Other: Voiding Method Indwelling Catheter Indwelling Catheter Indwelling Catheter - Exam GENERAL EXAM: Revealed an 80-year-old white male in no distress. On 3 L nasal cannula. HEENT: PERRLA, EOMI, neck, neck masses, no JVD, no stridor CHEST: No chest wall deformity. Symmetrical expansion. LUNGS: Symmetrical chest expansion, diminished breath sounds at the bases no rhonchi no wheezes CVS: Irregular irregular rhythm., normal S1 and S2, no gallops, no murmurs, no rubs ABDOMEN: Postsurgical, nontender, colostomy bag is intact followed as will EXTREMITIES: No clubbing, no edema, no cyanosis, 2+ pulses and upper and lower extremities. MUSCULOSKELETAL: Muscle strength and tone normal. SPINE: No scoliosis or deformity SKIN: No rashes CENTRAL NERVOUS SYSTEM: Awake, alert oriented 3. PSYCHIATRIC: blunted mood and affect. Intact judgment and insight. - Labs CBC & Chem 7: 07/01/20 05:03 07/01/20 05:03 Labs: Abnormal Lab Results - Last 24 Hours (Table) 06/30/20 06/30/20 07/01/20 Range/Units 17:40 20:30 05:03 WBC (3.8-10.6) k/uL Hgb (13.0-17.5) gm/dL Hct (39.0-53.0) % MCHC (31.0-37.0) g/dL Neutrophils # (1.3-7.7) k/uL Lymphocytes # (1.0-4.8) k/uL PT (9.0-12.0) sec INR (<1.2) Potassium 3.3 L (3.5-5.1) mmol/L Chloride 110 H (98-107) mmol/L BUN 35 H (9-20) mg/dL POC Glucose (mg/dL) 145 H 135 H (75-99) mg/dL Calcium 7.8 L (8.4-10.2) mg/dL 07/01/20 07/01/20 07/01/20 Range/Units 05:03 05:03 11:44 WBC 13.5 H (3.8-10.6) k/uL Hgb 12.0 L (13.0-17.5) gm/dL Hct 38.9 L (39.0-53.0) % MCHC 30.9 L (31.0-37.0) g/dL Neutrophils # 11.4 H (1.3-7.7) k/uL Lymphocytes # 0.7 L (1.0-4.8) k/uL PT 21.9 H (9.0-12.0) sec INR 2.3 H (<1.2) Potassium (3.5-5.1) mmol/L Chloride (98-107) mmol/L BUN (9-20) mg/dL POC Glucose (mg/dL) 120 H (75-99) mg/dL Calcium (8.4-10.2) mg/dL Microbiology - Last 24 Hours (Table) 06/28/20 09:20 Blood Culture - Preliminary Blood No Growth after 72 hours 06/25/20 22:34 Blood Culture - Preliminary Blood No Growth after 120 hours 06/25/20 22:27 Blood Culture - Preliminary Blood No Growth after 120 hours 06/28/20 13:20 Gram Stain - Preliminary Peritoneal Fluid Body Fluid Culture - Preliminary 06/28/20 13:20 Gram Stain - Final Sputum Sputum Culture - Final Assessment and Plan Assessment: #1. Acute hypoxic respiratory failure due to postoperative hypoventilation, along with postoperative atelectasis, expected #2. Perforated sigmoid diverticulitis, with pneumoperitoneum, incarcerated left inguinal hernia, status post exploratory laparotomy with sigmoid resection, descending colostomy creation with rectal stump, reduction and repair of incarcerated left inguinal hernia, Luke's procedure, drainage of sigmoid diverticular abscess, drainage of left inguinal canal abscess and peritoneal lavage, placement of wound VAC in the abdominal wall #3. Acute intra-abdominal sepsis related to the above, on Zosyn and Flagyl for antibiotic coverage #4. Acute kidney injury related to acute sepsis, ATN, resolved #5. A. fib with RVR, the rate is currently better controlled, on anti-coagu lation therapy/Coumadin and on beta blockers will placed back on oral Lopressor, 50 mg 3 times a day #6. Hypertension, history of #7. History of prostate cancer, history of surgical resection followed by radiation #8. Osteoarthritis #9 postoperative ileus, resolved Recommendation: Advance oral intake. Continue incentive spirometry. Continue oral beta blockers. Continue GI and DVT prophylaxis. Continue antibiotics Continue Coumadin. Transfer patient to a medical surgical bed with telemetry. Will follow. Time with Patient: Less than 30
--- NOTE | 2020-07-01 12:30 | P.PN ---
Subjective Hospital course from records This is a very pleasant 80-year-old patient of Dr. Joel. Chronic stable medical conditions include paroxysmal atrial fibrillation on Coumadin, hypertension, prostate cancer treated by surgery and followed by radiation treatment a year later, back surgery. The last 2 or 3 days patient with having increasing lower abdominal pain started off with nausea after he presented today also vomited couple of times. Denied any fever and chills. Patient baseline normally has 2 or 3 bowel movements a day. Last bowel movement was 2 days ago. Abdomen felt distended. Computed tomography scan of the abdomen that showed extensive sigmoid diverticulosis with asymmetry with a segment of diverticulitis and some fat and fluid containing left inguinal hernia and few fluid-filled loops of distal ileum. Admitted with acute sigmoid diverticular to severe, with ileus. Coumadin toxicity for which received vitamin K.on June 25 evening patient was taken to the OR by Dr. Kwok. Found to have a perforated sigmoid diverticulitis with stool and pus in the abdomen.patient underwent sigmoid resection followed by colostomy creation and repair of incarcerated left inguinal hernia/Luke's procedure. Pericardial large. Drain was placed. An incisional wound VAC was placed. Postprocedure, admitted to the ICU. Started on IV TPN and lipids. On IV Zosyn and Flagyl. Patient was moved out of the ICU. Patient had a postop ileus. Had a NG placed.related to atrial fibrillation. Accidentally patient pulled the NG tube out. [id number] in atrial fibrillation. Rate controlled. Some stool out in the colostomy bag. Tired. at the bedside.started on clear liquids by surgery today. 07/01/2020 Patient is seen and examined today in the ICU, his lying comfortable in bed. Hysterectomy liquid diet and he has 2 bowel movements, about 100 milliliter of fluid was attempted. Colostomy back is in place. Abdominal pain was controlled. Hemodynamically stable. He has mild leukocytosis of 13.5 K, INR is 2.3, potassium 3.3 and creatinine normal 0.8. Patient is to be moved today to the [facility] unit intubated available Several consultants on the case including surgery , nephrology, pulmonary/critical care team and cardiology Patient remains on TPN, oral Lasix, Flagyl and Zosyn. Also he is on warfarin Review of systems CONSTITUTIONAL: No fever, no malaise, no fatigue. HEENT: No recent visual problems or hearing problems. Denied any sore throat. CARDIOVASCULAR: No orthopnea, PND, no palpitations, no syncope. PULMONARY: No shortness of breath, no cough, no hemoptysis. GASTROINTESTINAL: No diarrhea, no nausea, no vomiting, no abdominal pain. Normoactive bowel sounds. Active Medications Generic Name Dose Route Start Last Admin Trade Name Freq PRN Reason Stop Dose Admin Acetaminophen 1,000 mg 06/30/20 11:17 07/01/20 06:14 Acetaminophen Tab 500 Mg Tab PO 1,000 mg Q6HR PRN Administration Fever and/ or Mild Pain Albuterol/Ipratropium 3 ml 06/28/20 08:00 07/01/20 11:38 Ipratropium-Albuterol 3 Ml Neb INHALATION 3 ml RT-Q4H ROSA Administration Albuterol/Ipratropium 3 ml 06/28/20 06:20 Ipratropium-Albuterol 3 Ml Neb INHALATION RT-QID PRN Shortness Of Breath Or Wheezing Amlodipine Besylate 10 mg 06/26/20 17:30 07/01/20 09:42 Amlodipine 10 Mg Tab PO 10 mg DAILY ROSA Administration Furosemide 20 mg 07/02/20 09:00 Furosemide 20 Mg Tab PO DAILY ROSA Hydralazine HCl 15 mg 06/27/20 02:17 06/29/20 06:21 Hydralazine Hcl 20 Mg/Ml 1 Ml Vial IVP 15 mg Q4HR PRN Administration Blood Pressure - High Piperacillin Sod/Tazobactam 100 mls @ 25 mls/hr 06/22/20 16:00 07/01/20 09:41 Sod 3.375 gm/ Sodium Chloride IVPB 25 mls/hr Q8HR ROSA Administration Metronidazole 500 mg/ IV 100 mls @ 100 mls/hr 06/23/20 12:00 07/01/20 11:58 Solution IVPB 100 mls/hr Q6HR ROSA Administration Sodium Chloride 1,000 mls @ 20 mls/hr 06/27/20 19:45 06/30/20 17:43 Saline 0.9% IV Not Given .Q24H ROSA Fat Emulsion Intravenous 250 mls @ 20.833 mls/hr 06/28/20 16:00 06/30/20 16:11 Lipids 20% IV 20.833 mls/hr MoWeFr@1600 [facility] Administration Parenteral Vitamin Supplement 1,021 mls @ 55 mls/hr 07/01/20 00:00 07/01/20 05:15 10 ml/ Chromium/Copper/ IV 55 mls/hr Manganese/Seleni/Zn 1 ml/ .[id number] ROSA Administration Potassium Chloride 20 meq/ Amino Ac/Electrol/Dextrose/ Calcium Insulin Aspart 0 unit 06/30/20 17:30 07/01/20 11:50 Insulin Aspart (Novolog) 100 Unit/Ml Vial SQ Not Given ACHS [facility] Protocol Metoprolol Tartrate 50 mg 06/30/20 12:00 07/01/20 09:42 Metoprolol Tartrate 50 Mg Tab PO 50 mg TID ROSA Administration Miscellaneous Information 1 each 06/27/20 07:44 Potassium Replacement Protocol 1 Each Mis MISCELLANE DAILY PRN Per Protocol Protocol Miscellaneous Information 0 each 06/27/20 08:26 Warfarin Per Pharmacy MISCELLANE DIRECTED PRN ANTICOAG Naloxone HCl 0.2 mg 06/25/20 20:01 Naloxone 0.4 Mg/Ml 1 Ml Vial IV Q2M PRN Opioid Reversal Ondansetron HCl 4 mg 06/22/20 04:14 06/27/20 08:40 Ondansetron 4 Mg/2 Ml Vial IVP 4 mg Q6HR PRN Administration Nausea And Vomiting Pantoprazole Sodium 40 mg 06/22/20 09:00 07/01/20 09:42 Pantoprazole 40 Mg/10 Ml Vial IVP 40 mg DAILY ROSA Administration Prochlorperazine Maleate 10 mg 06/22/20 18:39 Prochlorperazine 10 Mg Tab PO Q6HR PRN Nausea And Vomiting Trazodone HCl 50 mg 06/22/20 21:00 06/30/20 21:01 Trazodone Hcl 50 Mg Tab PO 50 mg HS ROSA Administration Warfarin Sodium 2 mg 07/01/20 18:00 Warfarin 2 Mg Tab PO DAILY@1800 [facility] Objective - Vital Signs Vital signs: Vital Signs Temp 98.0 F 07/01/20 12:00 Pulse 91 07/01/20 12:00 Resp 16 07/01/20 12:00 BP 128/89 07/01/20 12:00 Pulse Ox 96 07/01/20 11:00 Intake & Output 06/30/20 07/01/20 07/01/20 18:59 06:59 18:59 Intake Total 1243 927 195 Output Total 3340 1335 875 Balance -0421 -919 -260 Weight 93.5 kg Intake: IV 1243 927 195 0.9 120 120 40 Fat Emulsion 20% 250 ml @ 63 147 20.833 mls/hr IV MoWeFr@ 1600 [facility] Rx#:[id number] Mvi, Adult No.4 with Vit 660 660 55 K 10 ml Trace (Conc-1Ml/ Dose) 1 ml In Amino Acid 5%-D15w+Lytes*E* 1,000 ml @ 55 mls/hr IV .[id number] [facility] Rx#:[id number] Piperacillin-Tazobactam 3 200 .375 gm In Sodium Chloride 0.9% 100 ml @ 25 mls/hr IVPB Q8HR [facility] Rx# :[id number] metroNIDAZOLE-NS PMX 500 200 100 mg In Saline 1 100ml.bag @ 100 mls/hr IVPB Q6HR [facility] Rx#:[id number] Output: Drainage 270 160 65 Abdomen 270 160 65 Urine 2670 1025 710 Stool 400 150 100 Other: Voiding Method Indwelling Catheter Indwelling Catheter Indwelling Catheter - Exam GENERAL: The patient is alert and oriented x3, not in any acute distress. Well developed, well nourished. HEENT: Pupils are round and equally reacting to light. EOMI. No scleral icterus. No conjunctival pallor. Normocephalic, atraumatic. No pharyngeal erythema. No thyromegaly. CARDIOVASCULAR: S1 and S2 present. No murmurs, rubs, or gallops. PULMONARY: Chest is clear to auscultation, no wheezing or crackles. -ABDOMEN: Soft, nontender, nondistended, normoactive bowel sounds. No palpable organomegaly. Colostomy back on the left side MUSCULOSKELETAL: No joint swelling or deformity. EXTREMITIES: No cyanosis, clubbing, or pedal edema. NEUROLOGICAL: Gross neurological examination did not reveal any focal deficits. SKIN: No rashes. no petechiae. - Labs CBC & Chem 7: 07/01/20 05:03 07/01/20 05:03 Labs: Abnormal Lab Results - Last 24 Hours (Table) 06/30/20 06/30/20 07/01/20 Range/Units 17:40 20:30 05:03 WBC (3.8-10.6) k/uL Hgb (13.0-17.5) gm/dL Hct (39.0-53.0) % MCHC (31.0-37.0) g/dL Neutrophils # (1.3-7.7) k/uL Lymphocytes # (1.0-4.8) k/uL PT (9.0-12.0) sec INR (<1.2) Potassium 3.3 L (3.5-5.1) mmol/L Chloride 110 H (98-107) mmol/L BUN 35 H (9-20) mg/dL POC Glucose (mg/dL) 145 H 135 H (75-99) mg/dL Calcium 7.8 L (8.4-10.2) mg/dL 07/01/20 07/01/20 07/01/20 Range/Units 05:03 05:03 11:44 WBC 13.5 H (3.8-10.6) k/uL Hgb 12.0 L (13.0-17.5) gm/dL Hct 38.9 L (39.0-53.0) % MCHC 30.9 L (31.0-37.0) g/dL Neutrophils # 11.4 H (1.3-7.7) k/uL Lymphocytes # 0.7 L (1.0-4.8) k/uL PT 21.9 H (9.0-12.0) sec INR 2.3 H (<1.2) Potassium (3.5-5.1) mmol/L Chloride (98-107) mmol/L BUN (9-20) mg/dL POC Glucose (mg/dL) 120 H (75-99) mg/dL Calcium (8.4-10.2) mg/dL Microbiology - Last 24 Hours (Table) 06/28/20 09:20 Blood Culture - Preliminary Blood No Growth after 72 hours 06/25/20 22:34 Blood Culture - Preliminary Blood No Growth after 120 hours 06/25/20 22:27 Blood Culture - Preliminary Blood No Growth after 120 hours 06/28/20 13:20 Gram Stain - Preliminary Peritoneal Fluid Body Fluid Culture - Preliminary 06/28/20 13:20 Gram Stain - Final Sputum Sputum Culture - Final Assessment and Plan Assessment: -Acute severe sigmoid diverticulitis-with perforation-leading to sigmoid resection with Iwona's procedure and a colostomy. Patient has DEJON drain -Acute postop ileus causing respiratory compromise, followed by NG tube to suction-accidentally pulled out by patient-clinically improving -Secondary peritonitis secondary to ruptured viscus, causing sepsis -repair- Incarcerated left inguinal hernia -Acute kidney injury likely from improved -Colonic diverticulosis -Paroxysmal atrial fibrillation chronically on Coumadin-uncontrolled -Coumadin monitoring with toxicity-give vitamin K.-Corrected -Prostate cancer with a history of surgery and radiation treatment -Hypoalbuminemia-reactive Plan: This is a pleasant 80 years old male who presents with perforated diverticulitis status post colostomy. Vision is improving gradually and several consultants are on the case including surgery, cardiology, pulmonary and nephrology. Continue with antibiotic. Continue with Coumadin and follow up INR. Labs and medication were reviewed.. Continue same treatment. Continue with symptomatic treatment. Resume home medication. Monitor lytes and vitals. DVT and GI prophylaxis. Further recommendationsas per clinical course of the patient DVT prophylaxis: Coumadine GI Prophylaxis: Ppi
--- NOTE | 2020-07-01 15:21 | PN ---
PROGRESS NOTE DATE OF SERVICE: 07/01/2020 REASON FOR FOLLOWUP: Perforated diverticulitis, abdominal abscess. INTERVAL HISTORY: Patient is currently afebrile. The patient is breathing comfortably. The patient denies having any chest pain. No shortness of breath or cough. Abdominal pain is currently controlled. No nausea, no vomiting. Did have output in his colostomy bag. PHYSICAL EXAMINATION: Blood pressure 120/89 with a pulse of 90, temperature 98. General description is an elderly male lying in bed in no distress. Respiratory system: Unlabored breathing, clear to auscultation anteriorly. Heart S1, S2. Regular rate and rhythm. ABDOMEN: Soft. No tenderness. No guarding. No rigidity. LABS: Hemoglobin is 12, white count 8.5, BUN of 35, creatinine 0.88. DIAGNOSTIC IMPRESSION AND PLAN: Patient with peritonitis from perforated sigmoid diverticulitis in this patient who is status post laparotomy and diverting colostomy. Patient is covered with Zosyn to continue monitor clinical course closely. MMODL / IJN: [id number] /
[2020-07-01 17:21] LABS: Glucose,Whole Blood 145 mg/dL (75-99)
[2020-07-01] MEDS ORDERED: WARFARIN 2 MG TAB PO SCH (18:00)
[2020-07-01] MEDS: SODIUM CHLORIDE 0.9% 1,000 ML IV SCH (18:48)
[2020-07-01 20:54] LABS: Glucose,Whole Blood 104 mg/dL (75-99)
[2020-07-01] MEDS: traZODone HCL 50 MG TAB PO SCH (21:01)
[2020-07-01 23:47] LABS: Glucose,Whole Blood 124 mg/dL (75-99)
[2020-07-02] MEDS: POTASSIUM CHLORIDE ER 20 MEQ TAB.ER PO SCH (00:33)
[2020-07-02] MEDS: PIPERACILLIN-TAZOBACTAM 3.375 GM in SODIUM CHLORIDE 0.9% 100 ML IVPB SCH ×4 (00:33→23:18)
[2020-07-02] MEDS: IPRATROPIUM-ALBUTEROL 3 ML NEB INHALATION SCH ×6 (00:49→20:08)
[2020-07-02] MEDS: METOPROLOL TARTRATE 50 MG TAB PO SCH ×5 (05:56→23:32)
[2020-07-02] MEDS: INSULIN ASPART (NovoLOG) 100 UNIT/ML VIAL SQ SCH ×6 (05:57→23:33)
[2020-07-02 06:56] LABS: Glucose,Whole Blood 102 mg/dL (75-99)
[2020-07-02 07:28] LABS: Basophils % (A) 0 %; Eosinophils # (A) 0.4 k/uL (0-0.7); Eosinophils % (A) 2 %; HCT 40.8 % (39.0-53.0); HGB 12.8 gm/dL (13.0-17.5); Hypochromasia Slight; Lymphocytes # (A) 0.8 k/uL (1.0-4.8); Lymphocytes % (A) 4 %; MCHC 31.5 g/dL (31.0-37.0); MCV 89.1 fL (80.0-100.0); Monocytes # (A) 1.2 k/uL (0-1.0); Monocytes % (A) 7 %; Neutrophils # (A) 15.4 k/uL (1.3-7.7); Neutrophils % (A) 86 %; Platelet Count 297 k/uL (150-450); RBC 4.58 m/uL (4.30-5.90); RDW 14.6 % (11.5-15.5)
[2020-07-02 07:31] LABS: INR 2.1 (<1.2); Prothrombin Time 20.9 sec (9.0-12.0)
[2020-07-02 07:40] LABS: Albumin 1.9 g/dL (3.5-5.0); Calcium 7.8 mg/dL (8.4-10.2); Magnesium 1.8 mg/dL (1.6-2.3); Phosphorus 2.8 mg/dL (2.5-4.5); Potassium 4.3 mmol/L (3.5-5.1); Total Bilirubin 0.7 mg/dL (0.2-1.3); Total Protein 4.4 g/dL (6.3-8.2)
[2020-07-02] MEDS: FUROSEMIDE 20 MG TAB PO SCH (08:16)
[2020-07-02] MEDS: amLODIPine 10 MG TAB PO SCH (08:16)
[2020-07-02] MEDS: PANTOPRAZOLE 40 MG/10 ML VIAL IVP SCH (08:17)
--- NOTE | 2020-07-02 09:32 | P.PN ---
Subjective Progress Note Date: 07/02/20 Principal diagnosis: This 78-year-old male seen in consultation because of acute kidney injury, status post exploratory laparotomy for sigmoid resection after a perforated sigmoid diverticulitis dated 06/25/2020 Currently he is in the ICU on TPN his diet is being advanced from clear liquid to full liquid. He has poor appetite. No fever chills cough no shortness of breath. His only complaint is tiredness Vital signs are stable good urine output and creatinine is normal. He had mild hypokalemia, with potassium of 3.3 on TPN. He was replenished by mouth and and potassium today is 4.3 Objective - Vital Signs Vital signs: Vital Signs Temp 98.3 F 07/02/20 08:01 Pulse 98 07/02/20 08:01 Resp 16 07/02/20 08:01 BP 152/98 07/02/20 08:01 Pulse Ox 97 07/02/20 08:01 Intake & Output 07/01/20 07/02/20 07/02/20 18:59 06:59 18:59 Intake Total 979.333 50 Output Total 1185 1230 60 Balance -205.667 -1180 -60 Intake: IV 235 50 0.9 80 50 Mvi, Adult No.4 with Vit 55 K 10 ml Trace (Conc-1Ml/ Dose) 1 ml In Amino Acid 5%-D15w+Lytes*E* 1,000 ml @ 55 mls/hr IV .[id number] [facility] Rx#:[id number] metroNIDAZOLE-NS PMX 500 100 mg In Saline 1 100ml.bag @ 100 mls/hr IVPB Q6HR [facility] Rx#:[id number] Intake, IV Titration 744.333 Amount Mvi, Adult No.4 with Vit 744.333 K 10 ml Trace (Conc-1Ml/ Dose) 1 ml Potassium Chloride 20 meq In Amino Acid 5%-D15w+Lytes*E* 1, 000 ml @ 55 mls/hr IV . [id number] [facility] Rx#:[id number] Output: Drainage 65 55 60 Abdomen 65 55 60 Urine 1020 950 Stool 100 225 Other: Voiding Method Indwelling Catheter Indwelling Catheter Indwelling Catheter On examination is awake alert oriented comfortable HEENT exam no JVP neck is supple no facial asymmetry Lungs are clear to auscultation good air entry bilaterally Heart sounds are unremarkable for any murmur rub gallop Abdomen has a colostomy. Extremity exam reveals trace edema Neurologically awake alert oriented but generalized weakness - Labs CBC & Chem 7: 07/02/20 07:07 07/02/20 07:07 Labs: Abnormal Lab Results - Last 24 Hours (Table) 07/01/20 07/01/20 07/01/20 Range/Units 11:44 17:20 20:53 WBC (3.8-10.6) k/uL Hgb (13.0-17.5) gm/dL Neutrophils # (1.3-7.7) k/uL Lymphocytes # (1.0-4.8) k/uL Monocytes # (0-1.0) k/uL PT (9.0-12.0) sec INR (<1.2) Chloride (98-107) mmol/L BUN (9-20) mg/dL Glucose (74-99) mg/dL POC Glucose (mg/dL) 120 H 145 H 104 H (75-99) mg/dL Calcium (8.4-10.2) mg/dL Total Protein (6.3-8.2) g/dL Albumin (3.5-5.0) g/dL 07/01/20 07/02/20 07/02/20 Range/Units 23:46 06:55 07:07 WBC (3.8-10.6) k/uL Hgb (13.0-17.5) gm/dL Neutrophils # (1.3-7.7) k/uL Lymphocytes # (1.0-4.8) k/uL Monocytes # (0-1.0) k/uL PT 20.9 H (9.0-12.0) sec INR 2.1 H (<1.2) Chloride (98-107) mmol/L BUN (9-20) mg/dL Glucose (74-99) mg/dL POC Glucose (mg/dL) 124 H 102 H (75-99) mg/dL Calcium (8.4-10.2) mg/dL Total Protein (6.3-8.2) g/dL Albumin (3.5-5.0) g/dL 07/02/20 07/02/20 Range/Units 07:07 07:07 WBC 18.0 H (3.8-10.6) k/uL Hgb 12.8 L (13.0-17.5) gm/dL Neutrophils # 15.4 H (1.3-7.7) k/uL Lymphocytes # 0.8 L (1.0-4.8) k/uL Monocytes # 1.2 H (0-1.0) k/uL PT (9.0-12.0) sec INR (<1.2) Chloride 108 H (98-107) mmol/L BUN 32 H (9-20) mg/dL Glucose 102 H (74-99) mg/dL POC Glucose (mg/dL) (75-99) mg/dL Calcium 7.8 L (8.4-10.2) mg/dL Total Protein 4.4 L (6.3-8.2) g/dL Albumin 1.9 L (3.5-5.0) g/dL Microbiology - Last 24 Hours (Table) 06/25/20 22:27 Blood Culture - Final Blood No Growth after 144 hours 06/25/20 22:34 Blood Culture - Final Blood No Growth after 144 hours 06/28/20 13:20 Gram Stain - Preliminary Peritoneal Fluid Body Fluid Culture - Preliminary 06/28/20 09:20 Blood Culture - Preliminary Blood No Growth after 72 hours Assessment and Plan Assessment: Impression 1. Acute kidney injury from prerenal from perforated diverticulitis. Creatinine down to normal good urine output. 2. Hypokalemia is secondary to diuretics and low intake. Improved with replacement 3. Status post perforated diverticulitis and sigmoid resection and a colostomy Recommendations 1. Will sign off and please call us if necessary
[2020-07-02] MEDS: MAGNESIUM SULFATE-D5W PMX 1 GM in DEXTROSE/WATER 1 100ML.BAG IVPB SCH ×2 (10:06→12:40)
--- NOTE | 2020-07-02 10:20 | P.PN ---
Subjective Progress Note Date: 07/02/20 Principal diagnosis: Long-standing persistent atrial fibrillation This is a pleasant 78-year-old gentleman with history of long-standing persistent atrial fibrillation as well as hypertension who developed sigmoid diverticulitis and pneumoperitoneum and he underwent surgery. We consulted to see the patient for the management of atrial fibrillation and also for preop cardiac assessment before noncardiac surgery. The patient was seen today 07/02/2020. He remains in atrial fibrillation was controlled heart rate. He is hemodynamically stable. He continues to be on oral anticoagulation was Coumadin. No symptoms of chest pain or chest discomfort or shortness of breath. We'll follow-up with the patient on when necessary. Objective - Vital Signs Vital signs: Vital Signs Temp 98.3 F 07/02/20 08:01 Pulse 98 07/02/20 08:01 Resp 16 07/02/20 08:01 BP 152/98 07/02/20 08:01 Pulse Ox 97 07/02/20 08:01 Intake & Output 07/01/20 07/02/20 07/02/20 18:59 06:59 18:59 Intake Total 979.333 50 Output Total 1185 1230 60 Balance -205.667 -1180 -60 Intake: IV 235 50 0.9 80 50 Mvi, Adult No.4 with Vit 55 K 10 ml Trace (Conc-1Ml/ Dose) 1 ml In Amino Acid 5%-D15w+Lytes*E* 1,000 ml @ 55 mls/hr IV .[id number] [facility] Rx#:[id number] metroNIDAZOLE-NS PMX 500 100 mg In Saline 1 100ml.bag @ 100 mls/hr IVPB Q6HR [facility] Rx#:[id number] Intake, IV Titration 744.333 Amount Mvi, Adult No.4 with Vit 744.333 K 10 ml Trace (Conc-1Ml/ Dose) 1 ml Potassium Chloride 20 meq In Amino Acid 5%-D15w+Lytes*E* 1, 000 ml @ 55 mls/hr IV . [id number] [facility] Rx#:[id number] Output: Drainage 65 55 60 Abdomen 65 55 60 Urine 1020 950 Stool 100 225 Other: Voiding Method Indwelling Catheter Indwelling Catheter Indwelling Catheter - Constitutional General appearance: Present: no acute distress - Respiratory Respiratory: bilateral: CTA - Cardiovascular Rhythm: irregularly irregular Heart sounds: normal: S1, S2 - Labs CBC & Chem 7: 07/02/20 07:07 07/02/20 07:07 Labs: Abnormal Lab Results - Last 24 Hours (Table) 07/01/20 07/01/20 07/01/20 Range/Units 11:44 17:20 20:53 WBC (3.8-10.6) k/uL Hgb (13.0-17.5) gm/dL Neutrophils # (1.3-7.7) k/uL Lymphocytes # (1.0-4.8) k/uL Monocytes # (0-1.0) k/uL PT (9.0-12.0) sec INR (<1.2) Chloride (98-107) mmol/L BUN (9-20) mg/dL Glucose (74-99) mg/dL POC Glucose (mg/dL) 120 H 145 H 104 H (75-99) mg/dL Calcium (8.4-10.2) mg/dL Total Protein (6.3-8.2) g/dL Albumin (3.5-5.0) g/dL 07/01/20 07/02/20 07/02/20 Range/Units 23:46 06:55 07:07 WBC (3.8-10.6) k/uL Hgb (13.0-17.5) gm/dL Neutrophils # (1.3-7.7) k/uL Lymphocytes # (1.0-4.8) k/uL Monocytes # (0-1.0) k/uL PT 20.9 H (9.0-12.0) sec INR 2.1 H (<1.2) Chloride (98-107) mmol/L BUN (9-20) mg/dL Glucose (74-99) mg/dL POC Glucose (mg/dL) 124 H 102 H (75-99) mg/dL Calcium (8.4-10.2) mg/dL Total Protein (6.3-8.2) g/dL Albumin (3.5-5.0) g/dL 07/02/20 07/02/20 Range/Units 07:07 07:07 WBC 18.0 H (3.8-10.6) k/uL Hgb 12.8 L (13.0-17.5) gm/dL Neutrophils # 15.4 H (1.3-7.7) k/uL Lymphocytes # 0.8 L (1.0-4.8) k/uL Monocytes # 1.2 H (0-1.0) k/uL PT (9.0-12.0) sec INR (<1.2) Chloride 108 H (98-107) mmol/L BUN 32 H (9-20) mg/dL Glucose 102 H (74-99) mg/dL POC Glucose (mg/dL) (75-99) mg/dL Calcium 7.8 L (8.4-10.2) mg/dL Total Protein 4.4 L (6.3-8.2) g/dL Albumin 1.9 L (3.5-5.0) g/dL Microbiology - Last 24 Hours (Table) 06/25/20 22:27 Blood Culture - Final Blood No Growth after 144 hours 06/25/20 22:34 Blood Culture - Final Blood No Growth after 144 hours 06/28/20 13:20 Gram Stain - Preliminary Peritoneal Fluid Body Fluid Culture - Preliminary 06/28/20 09:20 Blood Culture - Preliminary Blood No Growth after 72 hours Assessment and Plan Assessment: Assessment #1 sigmoid diverticulitis and pneumoperitoneum #2 long-standing persistent atrial fibrillation #3 multiple comorbid conditions Plan #1 continue the current medical regimen #2 follow-up with the patient on when necessary case
--- NOTE | 2020-07-02 10:58 | P.PN ---
Subjective Progress Note Date: 07/02/20 Principal diagnosis: Diverticulitis Patient was transferred out of the ICU yesterday. Says he did not sleep well. White blood cell count 18. He feels somewhat bloated. Thinks she may have eaten too much liquids yesterday. Ostomy functioning with loose stools. Objective - Vital Signs Vital signs: Vital Signs Temp 98.3 F 07/02/20 08:01 Pulse 98 07/02/20 08:01 Resp 16 07/02/20 08:01 BP 152/98 07/02/20 08:01 Pulse Ox 97 07/02/20 08:01 Intake & Output 07/01/20 07/02/20 07/02/20 18:59 06:59 18:59 Intake Total 979.333 50 Output Total 1185 1230 60 Balance -205.667 -1180 -60 Intake: IV 235 50 0.9 80 50 Mvi, Adult No.4 with Vit 55 K 10 ml Trace (Conc-1Ml/ Dose) 1 ml In Amino Acid 5%-D15w+Lytes*E* 1,000 ml @ 55 mls/hr IV .[id number] [facility] Rx#:[id number] metroNIDAZOLE-NS PMX 500 100 mg In Saline 1 100ml.bag @ 100 mls/hr IVPB Q6HR [facility] Rx#:[id number] Intake, IV Titration 744.333 Amount Mvi, Adult No.4 with Vit 744.333 K 10 ml Trace (Conc-1Ml/ Dose) 1 ml Potassium Chloride 20 meq In Amino Acid 5%-D15w+Lytes*E* 1, 000 ml @ 55 mls/hr IV . [id number] [facility] Rx#:[id number] Output: Drainage 65 55 60 Abdomen 65 55 60 Urine 1020 950 Stool 100 225 Other: Voiding Method Indwelling Catheter Indwelling Catheter Indwelling Catheter - Exam Abdomen: Soft, mild distention, mild tenderness, dressing clean and dry, ostomy functioning - Labs CBC & Chem 7: 07/02/20 07:07 07/02/20 07:07 Labs: Abnormal Lab Results - Last 24 Hours (Table) 07/01/20 07/01/20 07/01/20 Range/Units 11:44 17:20 20:53 WBC (3.8-10.6) k/uL Hgb (13.0-17.5) gm/dL Neutrophils # (1.3-7.7) k/uL Lymphocytes # (1.0-4.8) k/uL Monocytes # (0-1.0) k/uL PT (9.0-12.0) sec INR (<1.2) Chloride (98-107) mmol/L BUN (9-20) mg/dL Glucose (74-99) mg/dL POC Glucose (mg/dL) 120 H 145 H 104 H (75-99) mg/dL Calcium (8.4-10.2) mg/dL Total Protein (6.3-8.2) g/dL Albumin (3.5-5.0) g/dL 07/01/20 07/02/20 07/02/20 Range/Units 23:46 06:55 07:07 WBC (3.8-10.6) k/uL Hgb (13.0-17.5) gm/dL Neutrophils # (1.3-7.7) k/uL Lymphocytes # (1.0-4.8) k/uL Monocytes # (0-1.0) k/uL PT 20.9 H (9.0-12.0) sec INR 2.1 H (<1.2) Chloride (98-107) mmol/L BUN (9-20) mg/dL Glucose (74-99) mg/dL POC Glucose (mg/dL) 124 H 102 H (75-99) mg/dL Calcium (8.4-10.2) mg/dL Total Protein (6.3-8.2) g/dL Albumin (3.5-5.0) g/dL 07/02/20 07/02/20 Range/Units 07:07 07:07 WBC 18.0 H (3.8-10.6) k/uL Hgb 12.8 L (13.0-17.5) gm/dL Neutrophils # 15.4 H (1.3-7.7) k/uL Lymphocytes # 0.8 L (1.0-4.8) k/uL Monocytes # 1.2 H (0-1.0) k/uL PT (9.0-12.0) sec INR (<1.2) Chloride 108 H (98-107) mmol/L BUN 32 H (9-20) mg/dL Glucose 102 H (74-99) mg/dL POC Glucose (mg/dL) (75-99) mg/dL Calcium 7.8 L (8.4-10.2) mg/dL Total Protein 4.4 L (6.3-8.2) g/dL Albumin 1.9 L (3.5-5.0) g/dL Microbiology - Last 24 Hours (Table) 06/25/20 22:27 Blood Culture - Final Blood No Growth after 144 hours 06/25/20 22:34 Blood Culture - Final Blood No Growth after 144 hours 06/28/20 13:20 Gram Stain - Preliminary Peritoneal Fluid Body Fluid Culture - Preliminary 06/28/20 09:20 Blood Culture - Preliminary Blood No Growth after 72 hours Assessment and Plan (1) Diverticulitis Narrative/Plan: Patient complains of ongoing fatigue. Continue full liquids. Continue physical therapy. Monitor labs. Current Visit: Yes Status: Acute Code(s): K57.92 - DVTRCLI OF INTEST, PART UNSP, W/O PERF OR ABSCESS W/O BLEED SNOMED Code(s): 269042746
[2020-07-02 11:47] LABS: Glucose,Whole Blood 157 mg/dL (75-99)
--- NOTE | 2020-07-02 13:04 | P.PN ---
Subjective Progress Note Date: 07/02/20 Principal diagnosis: Acute perforated sigmoid diverticulitis and acute kidney injury 80-year-old white male patient who follows with Dr. Joel, has a past medical history of prostate cancer with prior surgery followed by radiation, hypertension, paroxysmal atrial fibrillation on Coumadin, chronic back pain, who came into the hospital on 06/22/2020 for evaluation of increasing lower abdominal pain of 2 day history with intermittent nausea and vomiting. Patient also complained of constipation. CT of the abdomen and pelvis showed extensive sigmoid diverticulosis with a segment of diverticulitis and some fat and fluid containing left inguinal hernia and few fluid-filled loops of distal ileum suggestive of mild ileus. Initially patient was started on antibiotics, surgi alexander consultation was obtained, patient was kept nothing by mouth. ID service was consulted, patient was being treated with the combination of Zosyn and Flagyl. Patient developed acute kidney injury likely from hypotension and ATN. Nephrology was consulted. Over the weekend patient has developed atrial fibrillation with RVR. Follow-up abdominal x-ray on 06/25/2020 showed pneumoperitoneum, requiring emergent surgical intervention. In the evening of 06/25/2020 patient underwent Holter laparotomy with sigmoid resection for perforated sigmoid diverticulitis, descending colostomy creation with rectal stump, reduction and repair of incarcerated left inguinal hernia, Luke's procedure for perforated sigmoid diverticulitis, drainage of sigmoid diverticula abscess, drainage of left inguinal canal abscess, and peritoneal lavage. Today is postoperative day #1. Patient is seen in the intensive care unit, patient came to the intensive care unit following his surgery last night extubated, on high flow oxygen at 8 L, and FiO2 is currently down to 3 L and pulse ox is between 97-100%. Patient is arousable, a bit drowsy, but slow to respond, inattentive. CAM-ICU was positive. Hemodynamically patient is stable. Currently on 0.9 normal saline at a rate of 100 ML per hour. No vasoactive drips, no other infusions. Remains nothing by mouth, slight abdominal tenderness, abdominal incision with a wound VAC in place the total of 80 ML drainage since surgery. Denies any difficulty breathing, breathing is comfortable, this morning's chest x-ray shows elevation of the right hemidiaphragm with the possibility of hemidiaphragmatic paralysis, hypoventilatory changes with either mild pulmonary vascular congestion or oral crowding of the vascular markings. Patchy left basilar atelectasis. Patient continues on Zosyn and Flagyl for antibiotic coverage. Today's labs showed white blood cell count of 14.9, hemoglobin of 12.9, INR is 1.8, sodium is 140, potassium is 4.2, chloride is 112, BUN of 46, creatinine is 1.25, patient is receiving Dilantin for pain and discomfort, appears to be in no acute distress. He is in atrial fibrillation with a controlled rate, he is having an echoca rdiogram done. Patient was reevaluated today on 06/27/20, remains in the ICU, on 2 L nasal cannula, O2 saturations 96%. Patient is intermittently confused, but this morning he seems to be very appropriate. He is on TPN at 30 mL per hour, IV fluid is at 100 mL per hour. Patient is in atrial fibrillation with RVR rate of 1 24/m. That is being addressed by cardiology on the case. Patient is post operative day #2 underwent exploratory laparotomy, sigmoid resection and colostomy. Labs were all reviewed, CBC is relatively unremarkable. Electrolytes are normal potassium is a bit low at 3.4 being corrected as per protocol. INR is 2.4, therapeutic. Chest x-ray showed minimal right pleural effusion with elevation of the right hemidiaphragm, and streaky atelectasis at the left base. Patient was evaluated today on 06/28/20, patient was transferred back to the ICU early this morning mostly because he was noted by the nurse to have increased work of breathing, and increased abdominal distention with increased abdominal girth. Patient was brought down to the ICU, chest x-ray showed mostly bibasilar atelectasis with significant elevation of the left hemidiaphragm along with the right hemidiaphragm and there was significant large stomach bubble. Nasogastric tube was placed, and significant amount of bilious material over 1 L drained within a few minutes from the stomach. Patient felt a bit nauseated but felt better after the drainage of the stomach. Chest x-ray showed no evidence of pneumonia or evidence of congestive heart failure. ABG showed a pO2 of 70 pCO2 30 pH of 7.47. Basic metabolic profile was normal CBC was relatively normal x- rays of the abdomen and pelvis showed significant dilated bowel loops, and possible ileus or bowel obstruction. This is being addressed by surgery on the case. There was no evidence of free air. Patient was evaluated today in the ICU on 06/29/20, patient is resting in bed, on 4 L nasal cannula SATURATING 95%. Patient pulled out his nasogastric tube early this morning, and since the drainage was minimal, no new tube was placed. Chest x-ray continues to show some minimal atelectasis at the bases, right hemidiaphragm remains elevated. Patient is in atrial fibrillation with RVR, and his Lopressor was increased. Patient remains on Zosyn for his abdominal sepsis remains on TPN at 55 ML's per hour. Colostomy is noted to be slightly functional with minimal serous fluid noted in the colostomy. And the DEJON drain seems to be also functional with serous drainage noted. Patient remains on aspiration precautions, remains nothing by mouth. And his overall clinical status is marginal at best. Remains confused, asking to be sent home today. Labs today showed WBC of 13.4 hemoglobin 13.6 INR is therapeutic at 2.3 left lites are normal potassium is a bit low at 3.1 Reevaluated today on 06/30/20, patient is feeling better today, no nausea no vomiting, no shortness of breath, he feels generally weak. He is on 4 L nasal cannula, O2 saturations 96%. Patient is on TPN at 55 ML per hour. He remains on Zosyn and Flagyl. His colostomy bag is full of dark material. Obviously, his bowels are functioning. Patient continues to have intermittent confusion, but seems much better today. He is tolerating ice chips and popsicles. And I think his oral intake will be advanced by general surgery today. Mostly because there is evidence of gas and stool in his colostomy bag. Reviewed INR is therapeutic and lites are normal WBC is 14.9 hemoglobin is 13.0 chest x-ray showed improvement in his atelectasis, continues to have right hemidiaphragm elevation Reevaluated today on 07/01/20, patient remains in the ICU, he is presently an overflow. Patient is continuing to do well, seems to be more appropriate, less confused, hemodynamically stable, and he is on 3 L nasal cannula. Patient is tolerating clear diet quite well. Remains on TPN at 55 ML per hour, and I will cut it down as the patient is tolerating oral intake. I plan to transfer the patient today to a medical surgical bed with telemetry. Chest x-ray is reassuri ng except for minimal atelectasis. WBC count is 13.5 hemoglobin is 12 lites are normal potassium is a bit low being corrected as per protocol. INR is 2.3, therapeutic The patient is seen today 07/02/2020 in follow-up on the regular medical floor. He is currently resting comfortably in bed. Awake and alert in no acute distress. Maintaining O2 saturations in the 90s on 2 L/m per nasal cannula. He's been afebrile. Follow-up blood cultures reveal no growth. Sputum culture revealed no growth. White count 18.0. Hemoglobin 12.8. INR 2.1. Sodium 137. Potassium 4.2. Creatinine 0.93. He remains on Zosyn. Tolerating full liquid diet. Ostomy functioning with loose stools. Objective - Vital Signs Vital signs: Vital Signs Temp 98.3 F 07/02/20 08:01 Pulse 98 07/02/20 08:01 Resp 16 07/02/20 08:01 BP 152/98 07/02/20 08:01 Pulse Ox 97 07/02/20 08:01 Intake & Output 07/01/20 07/02/20 07/02/20 18:59 06:59 18:59 Intake Total 979.333 50 Output Total 1185 1230 60 Balance -205.667 -1180 -60 Intake: IV 235 50 0.9 80 50 Mvi, Adult No.4 with Vit 55 K 10 ml Trace (Conc-1Ml/ Dose) 1 ml In Amino Acid 5%-D15w+Lytes*E* 1,000 ml @ 55 mls/hr IV .[id number] ROSA Rx#:[id number] metroNIDAZOLE-NS PMX 500 100 mg In Saline 1 100ml.bag @ 100 mls/hr IVPB Q6HR ROSA Rx#:[id number] Intake, IV Titration 744.333 Amount Mvi, Adult No.4 with Vit 744.333 K 10 ml Trace (Conc-1Ml/ Dose) 1 ml Potassium Chloride 20 meq In Amino Acid 5%-D15w+Lytes*E* 1, 000 ml @ 55 mls/hr IV . [id number] ROSA Rx#:[id number] Output: Drainage 65 55 60 Abdomen 65 55 60 Urine 1020 950 Stool 100 225 Other: Voiding Method Indwelling Catheter Indwelling Catheter Indwelling Catheter - Exam GENERAL EXAM: Revealed an 80-year-old male patient in no distress. On 2 L nasal cannula. HEENT: PERRLA, EOMI, neck, neck masses, no JVD, no stridor CHEST: No chest wall deformity. Symmetrical expansion. LUNGS: Symmetrical chest expansion, faint crackles in the bilateral posterior bases CVS: Irregular irregular rhythm., normal S1 and S2, no gallops, no murmurs, no rubs ABDOMEN: Postsurgical, nontender, colostomy bag is intact and functioning EXTREMITIES: No clubbing, no edema, no cyanosis, 2+ pulses and upper and lower extremities. MUSCULOSKELETAL: Muscle strength and tone normal. SPINE: No scoliosis or deformity SKIN: No rashes CENTRAL NERVOUS SYSTEM: Awake, alert oriented 3. PSYCHIATRIC: blunted mood and affect. Intact judgment and insight. - Labs CBC & Chem 7: 07/02/20 07:07 07/02/20 07:07 Labs: Abnormal Lab Results - Last 24 Hours (Table) 07/01/20 07/01/20 07/01/20 Range/Units 17:20 20:53 23:46 WBC (3.8-10.6) k/uL Hgb (13.0-17.5) gm/dL Neutrophils # (1.3-7.7) k/uL Lymphocytes # (1.0-4.8) k/uL Monocytes # (0-1.0) k/uL PT (9.0-12.0) sec INR (<1.2) Chloride (98-107) mmol/L BUN (9-20) mg/dL Glucose (74-99) mg/dL POC Glucose (mg/dL) 145 H 104 H 124 H (75-99) mg/dL Calcium (8.4-10.2) mg/dL Total Protein (6.3-8.2) g/dL Albumin (3.5-5.0) g/dL 07/02/20 07/02/20 07/02/20 Range/Units 06:55 07:07 07:07 WBC 18.0 H (3.8-10.6) k/uL Hgb 12.8 L (13.0-17.5) gm/dL Neutrophils # 15.4 H (1.3-7.7) k/uL Lymphocytes # 0.8 L (1.0-4.8) k/uL Monocytes # 1.2 H (0-1.0) k/uL PT 20.9 H (9.0-12.0) sec INR 2.1 H (<1.2) Chloride (98-107) mmol/L BUN (9-20) mg/dL Glucose (74-99) mg/dL POC Glucose (mg/dL) 102 H (75-99) mg/dL Calcium (8.4-10.2) mg/dL Total Protein (6.3-8.2) g/dL Albumin (3.5-5.0) g/dL 07/02/20 07/02/20 Range/Units 07:07 11:46 WBC (3.8-10.6) k/uL Hgb (13.0-17.5) gm/dL Neutrophils # (1.3-7.7) k/uL Lymphocytes # (1.0-4.8) k/uL Monocytes # (0-1.0) k/uL PT (9.0-12.0) sec INR (<1.2) Chloride 108 H (98-107) mmol/L BUN 32 H (9-20) mg/dL Glucose 102 H (74-99) mg/dL POC Glucose (mg/dL) 157 H (75-99) mg/dL Calcium 7.8 L (8.4-10.2) mg/dL Total Protein 4.4 L (6.3-8.2) g/dL Albumin 1.9 L (3.5-5.0) g/dL Microbiology - Last 24 Hours (Table) 06/28/20 09:20 Blood Culture - Preliminary Blood No Growth after 96 hours 06/25/20 22:27 Blood Culture - Final Blood No Growth after 144 hours 06/25/20 22:34 Blood Culture - Final Blood No Growth after 144 hours 06/28/20 13:20 Gram Stain - Preliminary Peritoneal Fluid Body Fluid Culture - Preliminary Assessment and Plan Assessment: #1. Acute hypoxic respiratory failure due to postoperative hypoventilation, along with postoperative atelectasis, expected #2. Perforated sigmoid diverticulitis, with pneumoperitoneum, incarcerated left inguinal hernia, status post exploratory laparotomy with sigmoid resection, descending colostomy creation with rectal stump, reduction and repair of incarcerated left inguinal hernia, Luke's procedure, drainage of sigmoid diverticular abscess, drainage of left inguinal canal abscess and peritoneal lavage, placement of wound VAC in the abdominal wall #3. Acute intra-abdominal sepsis related to the above, on Zosyn and Flagyl for antibiotic coverage #4. Acute kidney injury related to acute sepsis, ATN, resolved #5. A. fib with RVR, the rate is currently better controlled, on anti- coagulation therapy/Coumadin and on beta blockers will placed back on oral Lopressor, 50 mg 3 times a day #6. Hypertension, history of #7. History of prostate cancer, history of surgical resection followed by radiation #8. Osteoarthritis #9 postoperative ileus, resolved Recommendation: Seen and evaluated by Dr. Rajeev Denny from the pulmonary critical care standpoint Continue to work with the incentive spirometer Increase his activity as tolerated We will see the patient as needed I, the cosigning physician, performed a history & physical examination of the patient. Lungs sounds faint crackles in the bilateral posterior bases. Maintaining good O2 saturations in the 90s on 2 L/m per nasal cannula I dis cussed the assessment and plan of care with my nurse practitioner, Litzy Alfaro. I attest to the above note as dictated by her.
--- NOTE | 2020-07-02 14:25 | P.PN ---
Subjective Hospital course from records This is a very pleasant 80-year-old patient of Dr. Joel. Chronic stable medical conditions include paroxysmal atrial fibrillation on Coumadin, hypertension, prostate cancer treated by surgery and followed by radiation treatment a year later, back surgery. The last 2 or 3 days patient with having increasing lower abdominal pain started off with nausea after he presented today also vomited couple of times. Denied any fever and chills. Patient baseline normally has 2 or 3 bowel movements a day. Last bowel movement was 2 days ago. Abdomen felt distended. Computed tomography scan of the abdomen that showed extensive sigmoid diverticulosis with asymmetry with a segment of diverticulitis and some fat and fluid containing left inguinal hernia and few fluid-filled loops of distal ileum. Admitted with acute sigmoid diverticular to severe, with ileus. Coumadin toxicity for which received vitamin K.on June 25 evening patient was taken to the OR by Dr. Kwok. Found to have a perforated sigmoid diverticulitis with stool and pus in the abdomen.patient underwent sigmoid resection followed by colostomy creation and repair of incarcerated left inguinal hernia/Luke's procedure. Pericardial large. Drain was placed. An incisional wound VAC was placed. Postprocedure, admitted to the ICU. Started on IV TPN and lipids. On IV Zosyn and Flagyl. Patient was moved out of the ICU. Patient had a postop ileus. Had a NG placed.related to atrial fibrillation. Accidentally patient pulled the NG tube out. [id number] in atrial fibrillation. Rate controlled. Some stool out in the colostomy bag. Tired. at the bedside.started on clear liquids by surgery today. 07/01/2020 Patient is seen and examined today in the ICU, his lying comfortable in bed. Hysterectomy liquid diet and he has 2 bowel movements, about 100 milliliter of fluid was attempted. Colostomy back is in place. Abdominal pain was controlled. Hemodynamically stable. He has mild leukocytosis of 13.5 K, INR is 2.3, potassium 3.3 and creatinine normal 0.8. Patient is to be moved today to the Medr unit intubated available Several consultants on the case including surgery , nephrology, pulmonary/critical care team and cardiology Patient remains on TPN, oral Lasix, Flagyl and Zosyn. Also he is on warfarin 07/02/2020 Patient is moved to the general medical floor. Hysterectomy. He is tolerating Liquid diet and lying comfortable in bed. Abdominal tenderness controlled, he has normal bowel movements. However is passing gas through his colostomy bag. No nausea vomiting . No fever and vitals are stable. His little dyspneic and feels tired but no actual breathing difficulty. WBC is 18 K today. INR is 2.1. BMP is unremarkable. Patient remains on Zosyn. Also continue with warfarin Patient continued to improve. Pulmonary team signed off Objective - Vital Signs Vital signs: Vital Signs Temp 98.3 F 07/02/20 08:01 Pulse 98 07/02/20 08:01 Resp 16 07/02/20 08:01 BP 152/98 07/02/20 08:01 Pulse Ox 97 07/02/20 08:01 Intake & Output 07/01/20 07/02/20 07/02/20 18:59 06:59 18:59 Intake Total 979.333 50 Output Total 1185 1230 60 Balance -205.667 -1180 -60 Intake: IV 235 50 0.9 80 50 Mvi, Adult No.4 with Vit 55 K 10 ml Trace (Conc-1Ml/ Dose) 1 ml In Amino Acid 5%-D15w+Lytes*E* 1,000 ml @ 55 mls/hr IV .[id number] ROSA Rx#:[id number] metroNIDAZOLE-NS PMX 500 100 mg In Saline 1 100ml.bag @ 100 mls/hr IVPB Q6HR ROSA Rx#:[id number] Intake, IV Titration 744.333 Amount Mvi, Adult No.4 with Vit 744.333 K 10 ml Trace (Conc-1Ml/ Dose) 1 ml Potassium Chloride 20 meq In Amino Acid 5%-D15w+Lytes*E* 1, 000 ml @ 55 mls/hr IV . [id number] ROSA Rx#:[id number] Output: Drainage 65 55 60 Abdomen 65 55 60 Urine 1020 950 Stool 100 225 Other: Voiding Method Indwelling Catheter Indwelling Catheter Indwelling Catheter - Exam GENERAL: The patient is alert and oriented x3, not in any acute distress. Well developed, well nourished. HEENT: Pupils are round and equally reacting to light. EOMI. No scleral icterus. No conjunctival pallor. Normocephalic, atraumatic. No pharyngeal erythema. No thyromegaly. CARDIOVASCULAR: S1 and S2 present. No murmurs, rubs, or gallops. PULMONARY: Chest is clear to auscultation, no wheezing or crackles. -ABDOMEN: Soft, nontender, nondistended, normoactive bowel sounds. No palpable organomegaly. Colostomy back on the left side MUSCULOSKELETAL: No joint swelling or deformity. EXTREMITIES: No cyanosis, clubbing, or pedal edema. NEUROLOGICAL: Gross neurological examination did not reveal any focal deficits. SKIN: No rashes. no petechiae. - Labs CBC & Chem 7: 07/02/20 07:07 07/02/20 07:07 Labs: Abnormal Lab Results - Last 24 Hours (Table) 07/01/20 07/01/20 07/01/20 Range/Units 17:20 20:53 23:46 WBC (3.8-10.6) k/uL Hgb (13.0-17.5) gm/dL Neutrophils # (1.3-7.7) k/uL Lymphocytes # (1.0-4.8) k/uL Monocytes # (0-1.0) k/uL PT (9.0-12.0) sec INR (<1.2) Chloride (98-107) mmol/L BUN (9-20) mg/dL Glucose (74-99) mg/dL POC Glucose (mg/dL) 145 H 104 H 124 H (75-99) mg/dL Calcium (8.4-10.2) mg/dL Total Protein (6.3-8.2) g/dL Albumin (3.5-5.0) g/dL 07/02/20 07/02/20 07/02/20 Range/Units 06:55 07:07 07:07 WBC 18.0 H (3.8-10.6) k/uL Hgb 12.8 L (13.0-17.5) gm/dL Neutrophils # 15.4 H (1.3-7.7) k/uL Lymphocytes # 0.8 L (1.0-4.8) k/uL Monocytes # 1.2 H (0-1.0) k/uL PT 20.9 H (9.0-12.0) sec INR 2.1 H (<1.2) Chloride (98-107) mmol/L BUN (9-20) mg/dL Glucose (74-99) mg/dL POC Glucose (mg/dL) 102 H (75-99) mg/dL Calcium (8.4-10.2) mg/dL Total Protein (6.3-8.2) g/dL Albumin (3.5-5.0) g/dL 07/02/20 07/02/20 Range/Units 07:07 11:46 WBC (3.8-10.6) k/uL Hgb (13.0-17.5) gm/dL Neutrophils # (1.3-7.7) k/uL Lymphocytes # (1.0-4.8) k/uL Monocytes # (0-1.0) k/uL PT (9.0-12.0) sec INR (<1.2) Chloride 108 H (98-107) mmol/L BUN 32 H (9-20) mg/dL Glucose 102 H (74-99) mg/dL POC Glucose (mg/dL) 157 H (75-99) mg/dL Calcium 7.8 L (8.4-10.2) mg/dL Total Protein 4.4 L (6.3-8.2) g/dL Albumin 1.9 L (3.5-5.0) g/dL Microbiology - Last 24 Hours (Table) 06/28/20 09:20 Blood Culture - Preliminary Blood No Growth after 96 hours 06/25/20 22:27 Blood Culture - Final Blood No Growth after 144 hours 06/25/20 22:34 Blood Culture - Final Blood No Growth after 144 hours 06/28/20 13:20 Gram Stain - Preliminary Peritoneal Fluid Body Fluid Culture - Preliminary Assessment and Plan Assessment: -Acute severe sigmoid diverticulitis-with perforation-leading to sigmoid resection with Iwona's procedure and a colostomy. Patient has DEJON drain -Acute postop ileus causing respiratory compromise, followed by NG tube to suction-accidentally pulled out by patient-clinically improving -Secondary peritonitis secondary to ruptured viscus, causing sepsis -repair- Incarcerated left inguinal hernia -Acute kidney injury likely from improved -Colonic diverticulosis -Paroxysmal atrial fibrillation chronically on Coumadin-uncontrolled -Coumadin monitoring with toxicity-give vitamin K.-Corrected -Prostate cancer with a history of surgery and radiation treatment -Hypoalbuminemia-reactive Plan: This is a pleasant 80 years old male who presents with perforated diverticulitis status post colostomy. Vision is improving gradually and several consultants are on the case including surgery, cardiology, pulmonary and nephrology. Continue with antibiotic. Continue with Coumadin and follow up INR. Labs and medication were reviewed.. Continue same treatment. Continue with symptomatic treatment. Resume home medication. Monitor lytes and vitals. DVT and GI prophylaxis. Further recommendationsas per clinical course of the patient DVT prophylaxis: Coumadine GI Prophylaxis: Ppi
[2020-07-02 16:38] LABS: Glucose,Whole Blood 108 mg/dL (75-99)
[2020-07-02] MEDS: MVI, ADULT NO.4 WITH VIT K 10 ML, TRACE (CONC-1ML/DOSE) 1 ML, POTASSIUM CHLORIDE 20 MEQ... IV SCH ×8 (16:48→23:18)
[2020-07-02] MEDS ORDERED: WARFARIN 3 MG TAB PO ONE (18:00)
[2020-07-02 21:04] LABS: Glucose,Whole Blood 162 mg/dL (75-99)
[2020-07-02] MEDS: traZODone HCL 50 MG TAB PO SCH (21:14)
[2020-07-02] MEDS: SODIUM CHLORIDE 0.9% 1,000 ML IV SCH (21:15)
[2020-07-02] MEDS ORDERED: FLUCONAZOLE 100 MG TAB PO ONE (21:47)
[2020-07-03] MEDS: IPRATROPIUM-ALBUTEROL 3 ML NEB INHALATION SCH ×6 (00:02→20:11)
--- NOTE | 2020-07-03 03:27 | PN ---
PROGRESS NOTE DATE OF SERVICE: 07/02/2020 REASON FOR FOLLOWUP: Secondary peritonitis from perforated sigmoid diverticulitis. INTERVAL HISTORY: The patient is currently afebrile. The patient has been moved out of the ICU. He is breathing comfortably. He denies having any chest pain, shortness of breath or cough. Abdominal pain is currently controlled. No nausea, no vomiting. PHYSICAL EXAMINATION: Blood pressure 130/81 with a pulse of 91, temperature 98.3. He is 96% on room air. General description is an elderly male up in the bed in no distress. RESPIRATORY SYSTEM: Unlabored breathing, decreased breath sounds at the bases. No wheeze. HEART: S1, S2. Regular rate and rhythm. ABDOMEN: Soft, no tenderness. LABS: White count up to 18,000 with BUN of 32, creatinine 0.93. DIAGNOSTIC IMPRESSION AND PLAN: Patient with secondary peritonitis from perforated sigmoid diverticulitis, status post diverting colostomy and drainage of the abscess. Abdominal culture with predominantly anaerobes, now with worsening of the white count. We will give him a dose of Diflucan. Repeat the CBC tomorrow. Continue supportive care. MMODL / IJN: [id number] /
[2020-07-03 07:26] LABS: Glucose,Whole Blood 111 mg/dL (75-99)
[2020-07-03] MEDS: INSULIN ASPART (NovoLOG) 100 UNIT/ML VIAL SQ SCH ×3 (07:30→17:28)
[2020-07-03 07:44] LABS: HCT 35.5 % (39.0-53.0); HGB 11.3 gm/dL (13.0-17.5); MCHC 31.9 g/dL (31.0-37.0); MCV 87.6 fL (80.0-100.0); Mean Platelet Volume 8.1; Platelet Count 298 k/uL (150-450); RBC 4.05 m/uL (4.30-5.90); RDW 14.5 % (11.5-15.5); WBC 13.6 k/uL (3.8-10.6)
[2020-07-03] MEDS: PANTOPRAZOLE 40 MG/10 ML VIAL IVP SCH (08:14)
[2020-07-03] MEDS: PIPERACILLIN-TAZOBACTAM 3.375 GM in SODIUM CHLORIDE 0.9% 100 ML IVPB SCH ×3 (08:14→23:03)
[2020-07-03] MEDS: amLODIPine 10 MG TAB PO SCH (08:14)
[2020-07-03] MEDS: FUROSEMIDE 20 MG TAB PO SCH (08:14)
[2020-07-03] MEDS: METOPROLOL TARTRATE 50 MG TAB PO SCH ×3 (08:14→20:55)
[2020-07-03 09:31] LABS: Band Neutrophils % 2 %; Eosinophils # (M) 0.68 k/uL (0-0.7); Lymphocytes # (M) 0.68 k/uL (1.0-4.8); Monocytes # (M) 0.95 k/uL (0-1.0); Myelocytes # (M) 0.14 k/uL (0); Myelocytes % 1 %; Neutrophils % (M) 82 %; Nucleated Red Blood Cells 0 /100 WBC (0-0); Total Cells Counted 200
[2020-07-03 10:55] LABS: INR 1.84 (0.90-1.11); Prothrombin Time 19.2 sec (9.9-11.9)
[2020-07-03 11:03] LABS: African American GFR (CKD) 91.9 (60.0-200.0); Anion Gap 2.9 mmol/L (4.00-12.00); BUN/Creat Ratio 33.33 Ratio (12.00-20.00); C Reactive Protein 1.7 mg/dL (0.0-0.8); Calcium 7.6 mg/dL (8.7-10.3); Carbon Dioxide 28.1 mmol/L (21.6-31.8); Magnesium 1.8 mg/dL (1.5-2.4); Non-African American GFR(CKD) 79.3 (60.0-200.0); Phosphorus 2.5 mg/dL (2.4-5.1)
--- NOTE | 2020-07-03 11:32 | P.PN ---
<Jacquie Sanchez - Last Filed: 07/03/20 11:27> Subjective Progress Note Date: 07/03/20 CHIEF COMPLAINT: Abdominal pain HISTORY OF PRESENT ILLNESS: Patient's is being followed for acute diverticulitis with perforation. Patient is tolerating a full liquid diet. He has stool present in his colostomy. He is afebrile. Infectious disease added Diflucan yesterday. White count has come down from 18-13.6. Patient denies any nausea or vomiting. Reports that his pain is controlled. PHYSICAL EXAM: VITAL SIGNS: Reviewed GENERAL: Well-developed in no acute distress. HEENT: No sclera icterus. Extraocular movements grossly intact. Moist buccal mucosa. Head is atraumatic, normocephalic. Hears conversational speech. No nasal drainage. NECK: Supple without lymphadenopathy. CHEST: Non-labored respirations and equal bilateral excursions. CARDIOVASCULAR: Palpable 2+ radial pulses. ABDOMEN: Soft. Mildly distended. Incision site clean dry and intact. Colostomy with brown liquidy stool present and air MUSCULOSKELETAL: No clubbing or cyanosis. NEUROLOGIC: Patient is less confused. No focal or lateralizing signs. Cranial nerves II through XII grossly intact. PSYCH: Appropriate affect. Alert and oriented to person, place and time. SKIN: Well perfused. Good skin turgor. ASSESSMENT: 1. Pneumoperitoneum status post exploratory laparotomy with sigmoid resection for perforated sigmoid diverticulitis, descending colostomy creation with rectal stump, reduction and repair of incarcerated left inguinal hernia, Iwona's procedure for perforated sigmoid diverticulitis, drainage of sigmoid divert icular abscess, drainage of left inguinal canal, abscess, placement of intraabdominal #19 Prince drain along the pelvis and placement of universal incisional PREVENA wound VAC system 2. Acute sigmoid diverticulitis, perforated sigmoid diverticulitis 3. Incarcerated left inguinal hernia 4. Sepsis with mental status changes, new 5. Leukocytosis 6. Atrial fibrillation 7. Chronic Coumadin therapy 8. Hypertensive heart disease 9. History of prostate cancer 10. Status post pelvic radiation for prostate cancer 11. Pelvic diverticular abscess, left lower quadrant 12. Ileus PLAN: -Advance diet to dysphagia chopped -Continue antibiotics per ID -Continue TPN -Continue GI and DVT prophylaxis -Anticipate discharged to ECF tomorrow Physician Inspector Quality Assurance note has been reviewed by physician. Signing provider agrees with the documented findings, assessment, and plan of care. Objective - Vital Signs Vital signs: Vital Signs Temp 98.6 F 07/03/20 08:06 Pulse 84 07/03/20 11:23 Resp 20 07/03/20 08:06 BP 129/83 07/03/20 08:06 Pulse Ox 93 L 07/03/20 08:06 Intake & Output 07/02/20 07/03/20 07/03/20 18:59 06:59 18:59 Intake Total 1021 517.5 Output Total 1235 2600 Balance -214 -2082.5 Intake: Intake, IV Titration 1021 517.5 Amount Mvi, Adult No.4 with Vit 1021 357.5 K 10 ml Trace (Conc-1Ml/ Dose) 1 ml Potassium Chloride 20 meq In Amino Acid 5%-D15w+Lytes*E* 1, 000 ml @ 55 mls/hr IV . [id number] ROSA Rx#:[id number] Sodium Chloride 0.9% 1, 160 000 ml @ 20 mls/hr IV . Q24H ROSA Rx#:[id number] Output: Drainage 135 100 Abdomen 135 100 Urine 1100 2500 Other: Voiding Method Indwelling Catheter Indwelling Catheter # Voids 1 - Labs CBC & Chem 7: 07/03/20 06:56 07/03/20 06:56 Labs: Abnormal Lab Results - Last 24 Hours (Table) 07/02/20 07/02/20 07/02/20 Range/Units 11:46 16:37 21:02 WBC (3.8-10.6) k/uL RBC (4.30-5.90) m/uL Hgb (13.0-17.5) gm/dL Hct (39.0-53.0) % Neutrophils # (Manual) (1.3-7.7) k/uL Lymphocytes # (Manual) (1.0-4.8) k/uL Myelocytes # (Manual) (0) k/uL PT (9.9-11.9) sec INR (0.90-1.11) Anion Gap (4.00-12.00) mmol/L BUN (9.0-27.0) mg/dL BUN/Creatinine Ratio (12.00-20.00) Ratio Glucose (70-110) mg/dL POC Glucose (mg/dL) 157 H 108 H 162 H (75-99) mg/dL Calcium (8.7-10.3) mg/dL C-Reactive Protein (0.0-0.8) mg/dL 07/03/20 07/03/20 07/03/20 Range/Units 06:56 06:56 06:56 WBC 13.6 H (3.8-10.6) k/uL RBC 4.05 L (4.30-5.90) m/uL Hgb 11.3 L (13.0-17.5) gm/dL Hct 35.5 L (39.0-53.0) % Neutrophils # (Manual) 11.40 H (1.3-7.7) k/uL Lymphocytes # (Manual) 0.68 L (1.0-4.8) k/uL Myelocytes # (Manual) 0.14 H (0) k/uL PT 19.2 H (9.9-11.9) sec INR 1.84 H (0.90-1.11) Anion Gap 2.90 L (4.00-12.00) mmol/L BUN 30.0 H (9.0-27.0) mg/dL BUN/Creatinine Ratio 33.33 H (12.00-20.00) Ratio Glucose 115 H (70-110) mg/dL POC Glucose (mg/dL) (75-99) mg/dL Calcium 7.6 L (8.7-10.3) mg/dL C-Reactive Protein 1.7 H (0.0-0.8) mg/dL 07/03/20 Range/Units 07:05 WBC (3.8-10.6) k/uL RBC (4.30-5.90) m/uL Hgb (13.0-17.5) gm/dL Hct (39.0-53.0) % Neutrophils # (Manual) (1.3-7.7) k/uL Lymphocytes # (Manual) (1.0-4.8) k/uL Myelocytes # (Manual) (0) k/uL PT (9.9-11.9) sec INR (0.90-1.11) Anion Gap (4.00-12.00) mmol/L BUN (9.0-27.0) mg/dL BUN/Creatinine Ratio (12.00-20.00) Ratio Glucose (70-110) mg/dL POC Glucose (mg/dL) 111 H (75-99) mg/dL Calcium (8.7-10.3) mg/dL C-Reactive Protein (0.0-0.8) mg/dL Microbiology - Last 24 Hours (Table) 06/28/20 13:20 Gram Stain - Final Peritoneal Fluid Body Fluid Culture - Final 06/28/20 09:20 Blood Culture - Preliminary Blood No Growth after 96 hours <Tosha Lau - Last Filed: 07/03/20 21:45> Subjective Patient seen and evaluated. Please see additional comments below. HISTORY OF PRESENT ILLNESS: The patient is a 80-year-old male status post Luke's procedure including left inguinal hernia repair for ruptured sigmoid diverticulitis with incarcerated left inguinal hernia. Over the weekend, white blood cell count was elevated. Patient is being seen by infectious disease. Diflucan was added. WBC count improved. Reports stool in his ostomy. He is tolerating liquids. His is at bedside eager to take him home. He is ambulating and reports easy fatigue. No increased abdominal pain. He does com plain of global swelling of his extremities and pelvis. ROS: No fevers or chills. No new chest pain. PHYSICAL EXAM: VITAL SIGNS: Reviewed CONSTITUTIONAL: Well developed and in no acute distress. EYES: Conjuctivae without sclera icterus. Extraocular movements grossly intact. HEAD, EARS, NOSE, THROAT: Moist buccal mucosa. Head is atraumatic, normocephalic. Hears conversational speech. No nasal drainage. NECK: Supple. No thyroidomegaly. RESPIRATORY: Non-labored respirations and equal bilateral excursions. CARDIOVASCULAR: Irregular rate. Regular rhythm. 2+ pulses. ABDOMEN: Dressed and intact. Ostomy with liquid stool. MUSCULOSKELETAL: Anasarca with edema along the pelvis and lower extremities. 2+ pitting edema bilaterally. SKIN: Good skin turgor. Well perfused. NEUROLOGIC: Cranial nerves II through XII grossly intact. No focal or lateralizing signs. PSYCH: Appropriate affect. Alert and oriented to person, place and time. CLINICAL LABS: Reviewed with WBC improved from over 18,000-13,000. Microbiology cultures unremarkable per discussion infectious disease ASSESSMENT: 1. Complicated ruptured acute sigmoid diverticulitis with abscess PLAN: 1. I personally discussed with infectious disease provider where oral antibiotics of ciprofloxacin, Flagyl, Diflucan is advised. At this time, no need for intravenous antibiotics for home. 2. For his global edema, Lasix 20 mg 3. He still has his Granado catheter. Discontinue Granado catheter after completion of Lasix diuresis. 4. Advance diet to soft diet 5. May be discharged home tomorrow after tolerating advance diet, voiding after Granado cath discontinuance, home health care arrangements 6. I discussed with the patient's complexity of care including need for aggressive rehab ideally in rehab institution. understood however show chose PT/OT for home. 7. Discontinue TPN Objective - Vital Signs Vital signs: Vital Signs Temp 98.5 F 07/03/20 15:16 Pulse 84 07/03/20 15:44 Resp 16 07/03/20 15:16 BP 121/80 07/03/20 15:16 Pulse Ox 93 L 07/03/20 15:16 Intake & Output 07/03/20 07/03/20 07/04/20 06:59 18:59 06:59 Intake Total 517.5 Output Total 2600 800 Balance -2082.5 -800 Weight 93.5 kg Intake: Intake, IV Titration 517.5 Amount Mvi, Adult No.4 with Vit 357.5 K 10 ml Trace (Conc-1Ml/ Dose) 1 ml Potassium Chloride 20 meq In Amino Acid 5%-D15w+Lytes*E* 1, 000 ml @ 55 mls/hr IV . [id number] ROSA Rx#:[id number] Sodium Chloride 0.9% 1, 160 000 ml @ 20 mls/hr IV . Q24H ROSA Rx#:[id number] Output: Drainage 100 Abdomen 100 Urine 2500 800 Other: Voiding Method Indwelling Catheter Indwelling Catheter # Voids 1 - Labs CBC & Chem 7: 07/03/20 06:56 07/03/20 06:56 Labs: Abnormal Lab Results - Last 24 Hours (Table) 07/03/20 07/03/20 07/03/20 Range/Units 06:56 06:56 06:56 WBC 13.6 H (3.8-10.6) k/uL RBC 4.05 L (4.30-5.90) m/uL Hgb 11.3 L (13.0-17.5) gm/dL Hct 35.5 L (39.0-53.0) % Neutrophils # (Manual) 11.40 H (1.3-7.7) k/uL Lymphocytes # (Manual) 0.68 L (1.0-4.8) k/uL Myelocytes # (Manual) 0.14 H (0) k/uL PT 19.2 H (9.9-11.9) sec INR 1.84 H (0.90-1.11) Anion Gap 2.90 L (4.00-12.00) mmol/L BUN 30.0 H (9.0-27.0) mg/dL BUN/Creatinine Ratio 33.33 H (12.00-20.00) Ratio Glucose 115 H (70-110) mg/dL POC Glucose (mg/dL) (75-99) mg/dL Calcium 7.6 L (8.7-10.3) mg/dL C-Reactive Protein 1.7 H (0.0-0.8) mg/dL 07/03/20 07/03/20 07/03/20 Range/Units 07:05 11:40 17:26 WBC (3.8-10.6) k/uL RBC (4.30-5.90) m/uL Hgb (13.0-17.5) gm/dL Hct (39.0-53.0) % Neutrophils # (Manual) (1.3-7.7) k/uL Lymphocytes # (Manual) (1.0-4.8) k/uL Myelocytes # (Manual) (0) k/uL PT (9.9-11.9) sec INR (0.90-1.11) Anion Gap (4.00-12.00) mmol/L BUN (9.0-27.0) mg/dL BUN/Creatinine Ratio (12.00-20.00) Ratio Glucose (70-110) mg/dL POC Glucose (mg/dL) 111 H 145 H 104 H (75-99) mg/dL Calcium (8.7-10.3) mg/dL C-Reactive Protein (0.0-0.8) mg/dL Microbiology - Last 24 Hours (Table) 06/28/20 09:20 Blood Culture - Preliminary Blood No Growth after 120 hours 06/28/20 13:20 Gram Stain - Final Peritoneal Fluid Body Fluid Culture - Final Assessment and Plan (1) Sigmoid diverticulitis Current Visit: Yes Status: Acute Code(s): K57.32 - DVTRCLI OF LG INT W/O PERFORATION OR ABSCESS W/O BLEEDING SNOMED Code(s): 452269955 (2) Prostate cancer Current Visit: Yes Status: Acute Code(s): C61 - MALIGNANT NEOPLASM OF PROSTATE SNOMED Code(s): 215644358 (3) Atrial fibrillation Current Visit: Yes Status: Acute Code(s): I48.91 - UNSPECIFIED ATRIAL FIBRILLATION SNOMED Code(s): 59016075 (4) Anticoagulated on Coumadin Current Visit: Yes Status: Acute Code(s): Z79.01 - TANNING CONSULTANT (CURRENT) USE OF ANTICOAGULANTS SNOMED Code(s): 07927042 (5) Pneumoperitoneum Current Visit: Yes Status: Acute Code(s): K66.8 - OTHER SPECIFIED DISORDERS OF PERITONEUM SNOMED Code(s): 61285493
[2020-07-03 11:51] LABS: Glucose,Whole Blood 145 mg/dL (75-99)
--- NOTE | 2020-07-03 11:57 | P.PN ---
Subjective Hospital course from records This is a very pleasant 80-year-old patient of Dr. Joel. Chronic stable medical conditions include paroxysmal atrial fibrillation on Coumadin, hypertension, prostate cancer treated by surgery and followed by radiation treatment a year later, back surgery. The last 2 or 3 days patient with having increasing lower abdominal pain started off with nausea after he presented today also vomited couple of times. Denied any fever and chills. Patient baseline normally has 2 or 3 bowel movements a day. Last bowel movement was 2 days ago. Abdomen felt distended. Computed tomography scan of the abdomen that showed extensive sigmoid diverticulosis with asymmetry with a segment of diverticulitis and some fat and fluid containing left inguinal hernia and few fluid-filled loops of distal ileum. Admitted with acute sigmoid diverticular to severe, with ileus. Coumadin toxicity for which received vitamin K.on June 25 evening patient was taken to the OR by Dr. Kwok. Found to have a perforated sigmoid diverticulitis with stool and pus in the abdomen.patient underwent sigmoid resection followed by colostomy creation and repair of incarcerated left inguinal hernia/Luke's procedure. Pericardial large. Drain was placed. An incisional wound VAC was placed. Postprocedure, admitted to the ICU. Started on IV TPN and lipids. On IV Zosyn and Flagyl. Patient was moved out of the ICU. Patient had a postop ileus. Had a NG placed.related to atrial fibrillation. Accidentally patient pulled the NG tube out. [id number] in atrial fibrillation. Rate controlled. Some stool out in the colostomy bag. Tired. at the bedside.started on clear liquids by surgery today. 07/01/2020 Patient is seen and examined today in the ICU, his lying comfortable in bed. Hysterectomy liquid diet and he has 2 bowel movements, about 100 milliliter of fluid was attempted. Colostomy back is in place. Abdominal pain was controlled. Hemodynamically stable. He has mild leukocytosis of 13.5 K, INR is 2.3, potassium 3.3 and creatinine normal 0.8. Patient is to be moved today to the Medr unit intubated available Several consultants on the case including surgery , nephrology, pulmonary/critical care team and cardiology Patient remains on TPN, oral Lasix, Flagyl and Zosyn. Also he is on warfarin 07/02/2020 Patient is moved to the general medical floor. Hysterectomy. He is tolerating Liquid diet and lying comfortable in bed. Abdominal tenderness controlled, he has normal bowel movements. However is passing gas through his colostomy bag. No nausea vomiting . No fever and vitals are stable. His little dyspneic and feels tired but no actual breathing difficulty. WBC is 18 K today. INR is 2.1. BMP is unremarkable. Patient remains on Zosyn. Also continue with warfarin Patient continued to improve. Pulmonary team signed off 07/03/20 Patient In bed comfortable not in distress, hysterectomy liquid diet which is been advanced, no vomiting abdominal pain is controlled his colostomy back looks empty however he has little yesterday and today as per staff, we will discontinue TPN WBCs improvement of 13.6 K. BMP is unremarkable. INR is 1.8 continue with coumadine pharmacy to dose. Antibiotics as per ID team. Other consultants signs of my pulmonary, nephrology and probably cardiology teams Possible discharge in 24-48 hours he keeps improving Objective - Vital Signs Vital signs: Vital Signs Temp 98.6 F 07/03/20 08:06 Pulse 84 07/03/20 11:36 Resp 20 07/03/20 08:06 BP 129/83 07/03/20 08:06 Pulse Ox 93 L 07/03/20 08:06 Intake & Output 07/02/20 07/03/20 07/03/20 18:59 06:59 18:59 Intake Total 1021 517.5 Output Total 1235 2600 Balance -214 -2082.5 Intake: Intake, IV Titration 1021 517.5 Amount Mvi, Adult No.4 with Vit 1021 357.5 K 10 ml Trace (Conc-1Ml/ Dose) 1 ml Potassium Chloride 20 meq In Amino Acid 5%-D15w+Lytes*E* 1, 000 ml @ 55 mls/hr IV . [id number] ROSA Rx#:[id number] Sodium Chloride 0.9% 1, 160 000 ml @ 20 mls/hr IV . Q24H ROSA Rx#:[id number] Output: Drainage 135 100 Abdomen 135 100 Urine 1100 2500 Other: Voiding Method Indwelling Catheter Indwelling Catheter # Voids 1 - Exam GENERAL: The patient is alert and oriented x3, not in any acute distress. Well developed, well nourished. HEENT: Pupils are round and equally reacting to light. EOMI. No scleral icterus. No conjunctival pallor. Normocephalic, atraumatic. No pharyngeal erythema. No thyromegaly. CARDIOVASCULAR: S1 and S2 present. No murmurs, rubs, or gallops. PULMONARY: Chest is clear to auscultation, no wheezing or crackles. -ABDOMEN: Soft, nontender, nondistended, normoactive bowel sounds. No palpable organomegaly. Colostomy back on the left side MUSCULOSKELETAL: No joint swelling or deformity. EXTREMITIES: No cyanosis, clubbing, or pedal edema. NEUROLOGICAL: Gross neurological examination did not reveal any focal deficits. SKIN: No rashes. no petechiae. - Labs CBC & Chem 7: 07/03/20 06:56 07/03/20 06:56 Labs: Abnormal Lab Results - Last 24 Hours (Table) 07/02/20 07/02/20 07/03/20 Range/Units 16:37 21:02 06:56 WBC (3.8-10.6) k/uL RBC (4.30-5.90) m/uL Hgb (13.0-17.5) gm/dL Hct (39.0-53.0) % Neutrophils # (Manual) (1.3-7.7) k/uL Lymphocytes # (Manual) (1.0-4.8) k/uL Myelocytes # (Manual) (0) k/uL PT 19.2 H (9.9-11.9) sec INR 1.84 H (0.90-1.11) Anion Gap (4.00-12.00) mmol/L BUN (9.0-27.0) mg/dL BUN/Creatinine Ratio (12.00-20.00) Ratio Glucose (70-110) mg/dL POC Glucose (mg/dL) 108 H 162 H (75-99) mg/dL Calcium (8.7-10.3) mg/dL C-Reactive Protein (0.0-0.8) mg/dL 07/03/20 07/03/20 07/03/20 Range/Units 06:56 06:56 07:05 WBC 13.6 H (3.8-10.6) k/uL RBC 4.05 L (4.30-5.90) m/uL Hgb 11.3 L (13.0-17.5) gm/dL Hct 35.5 L (39.0-53.0) % Neutrophils # (Manual) 11.40 H (1.3-7.7) k/uL Lymphocytes # (Manual) 0.68 L (1.0-4.8) k/uL Myelocytes # (Manual) 0.14 H (0) k/uL PT (9.9-11.9) sec INR (0.90-1.11) Anion Gap 2.90 L (4.00-12.00) mmol/L BUN 30.0 H (9.0-27.0) mg/dL BUN/Creatinine Ratio 33.33 H (12.00-20.00) Ratio Glucose 115 H (70-110) mg/dL POC Glucose (mg/dL) 111 H (75-99) mg/dL Calcium 7.6 L (8.7-10.3) mg/dL C-Reactive Protein 1.7 H (0.0-0.8) mg/dL 07/03/20 Range/Units 11:40 WBC (3.8-10.6) k/uL RBC (4.30-5.90) m/uL Hgb (13.0-17.5) gm/dL Hct (39.0-53.0) % Neutrophils # (Manual) (1.3-7.7) k/uL Lymphocytes # (Manual) (1.0-4.8) k/uL Myelocytes # (Manual) (0) k/uL PT (9.9-11.9) sec INR (0.90-1.11) Anion Gap (4.00-12.00) mmol/L BUN (9.0-27.0) mg/dL BUN/Creatinine Ratio (12.00-20.00) Ratio Glucose (70-110) mg/dL POC Glucose (mg/dL) 145 H (75-99) mg/dL Calcium (8.7-10.3) mg/dL C-Reactive Protein (0.0-0.8) mg/dL Microbiology - Last 24 Hours (Table) 06/28/20 09:20 Blood Culture - Preliminary Blood No Growth after 120 hours 06/28/20 13:20 Gram Stain - Final Peritoneal Fluid Body Fluid Culture - Final Assessment and Plan Assessment: -Acute severe sigmoid diverticulitis-with perforation-leading to sigmoid resection with Iwona's procedure and a colostomy. Patient has DEJON drain -Acute postop ileus causing respiratory compromise, followed by NG tube to suction-accidentally pulled out by patient-clinically improving -Secondary peritonitis secondary to ruptured viscus, causing sepsis -repair- Incarcerated left inguinal hernia -Acute kidney injury likely from improved -Colonic diverticulosis -Paroxysmal atrial fibrillation chronically on Coumadin-uncontrolled -Coumadin monitoring with toxicity-give vitamin K.-Corrected -Prostate cancer with a history of surgery and radiation treatment -Hypoalbuminemia-reactive Plan: This is a pleasant 80 years old male who presents with perforated diverticulitis status post colostomy. Vision is improving gradually and several consultants are on the case including surgery, cardiology, pulmonary and nephrology. Continue with antibiotic. Continue with Coumadin and follow up INR. Labs and medication were reviewed.. Continue same treatment. Continue with symptomatic treatment. Resume home medication. Monitor lytes and vitals. DVT and GI prophylaxis. Further recommendationsas per clinical course of the patient DVT prophylaxis: Coumadine GI Prophylaxis: Ppi
[2020-07-03] MEDS: FAT EMULSION 20% 250 ML IV SCH (12:08)
[2020-07-03] MEDS: MAGNESIUM SULFATE-D5W PMX 1 GM in DEXTROSE/WATER 1 100ML.BAG IVPB SCH ×2 (12:12→14:49)
[2020-07-03] MEDS: FLUCONAZOLE 100 MG TAB PO SCH (12:12)
--- NOTE | 2020-07-03 16:55 | P.PN ---
Subjective Progress Note Date: 07/03/20 Principal diagnosis: Acute perforated sigmoid diverticulitis and acute kidney injury 80-year-old white male patient who follows with Dr. Joel, has a past medical history of prostate cancer with prior surgery followed by radiation, hypertension, paroxysmal atrial fibrillation on Coumadin, chronic back pain, who came into the hospital on 06/22/2020 for evaluation of increasing lower abdominal pain of 2 day history with intermittent nausea and vomiting. Patient also complained of constipation. CT of the abdomen and pelvis showed extensive sigmoid diverticulosis with a segment of diverticulitis and some fat and fluid containing left inguinal hernia and few fluid-filled loops of distal ileum suggestive of mild ileus. Initially patient was started on antibiotics, surgic al consultation was obtained, patient was kept nothing by mouth. ID service was consulted, patient was being treated with the combination of Zosyn and Flagyl. Patient developed acute kidney injury likely from hypotension and ATN. Nephrology was consulted. Over the weekend patient has developed atrial fibrillation with RVR. Follow-up abdominal x-ray on 06/25/2020 showed pneumoperitoneum, requiring emergent surgical intervention. In the evening of 06/25/2020 patient underwent Holter laparotomy with sigmoid resection for perforated sigmoid diverticulitis, descending colostomy creation with rectal stump, reduction and repair of incarcerated left inguinal hernia, Luke's procedure for perforated sigmoid diverticulitis, drainage of sigmoid diverticula abscess, drainage of left inguinal canal abscess, and peritoneal lavage. Today is postoperative day #1. Patient is seen in the intensive care unit, patient came to the intensive care unit following his surgery last night extubated, on high flow oxygen at 8 L, and FiO2 is currently down to 3 L and pulse ox is between 97-100%. Patient is arousable, a bit drowsy, but slow to respond, inattentive. CAM-ICU was positive. Hemodynamically patient is stable. Currently on 0.9 normal saline at a rate of 100 ML per hour. No vasoactive drips, no other infusions. Remains nothing by mouth, slight abdominal tenderness, abdominal incision with a wound VAC in place the total of 80 ML drainage since surgery. Denies any difficulty breathing, breathing is comfortable, this morning's chest x-ray shows elevation of the right hemidiaphragm with the possibility of hemidiaphragmatic paralysis, hypoventilatory changes with either mild pulmonary vascular congestion or oral crowding of the vascular markings. Patchy left basilar atelectasis. Patient continues on Zosyn and Flagyl for antibiotic coverage. Today's labs showed white blood cell count of 14.9, hemoglobin of 12.9, INR is 1.8, sodium is 140, potassium is 4.2, chloride is 112, BUN of 46, creatinine is 1.25, patient is receiving Dilantin for pain and discomfort, appears to be in no acute distress. He is in atrial fibrillation with a controlled rate, he is having an echocar diogram done. Patient was reevaluated today on 06/27/20, remains in the ICU, on 2 L nasal cannula, O2 saturations 96%. Patient is intermittently confused, but this morning he seems to be very appropriate. He is on TPN at 30 mL per hour, IV fluid is at 100 mL per hour. Patient is in atrial fibrillation with RVR rate of 1 24/m. That is being addressed by cardiology on the case. Patient is posto perative day #2 underwent exploratory laparotomy, sigmoid resection and colostomy. Labs were all reviewed, CBC is relatively unremarkable. Electrolytes are normal potassium is a bit low at 3.4 being corrected as per protocol. INR is 2.4, therapeutic. Chest x-ray showed minimal right pleural effusion with elevation of the right hemidiaphragm, and streaky atelectasis at the left base. Patient was evaluated today on 06/28/20, patient was transferred back to the ICU early this morning mostly because he was noted by the nurse to have increased work of breathing, and increased abdominal distention with increased abdominal girth. Patient was brought down to the ICU, chest x-ray showed mostly bibasilar atelectasis with significant elevation of the left hemidiaphragm along with the right hemidiaphragm and there was significant large stomach bubble. Nasogastric tube was placed, and significant amount of bilious material over 1 L drained within a few minutes from the stomach. Patient felt a bit nauseated but felt better after the drainage of the stomach. Chest x-ray showed no evidence of pneumonia or evidence of congestive heart failure. ABG showed a pO2 of 70 pCO2 30 pH of 7.47. Basic metabolic profile was normal CBC was relatively normal x- rays of the abdomen and pelvis showed significant dilated bowel loops, and possible ileus or bowel obstruction. This is being addressed by surgery on the case. There was no evidence of free air. Patient was evaluated today in the ICU on 06/29/20, patient is resting in bed, on 4 L nasal cannula SATURATING 95%. Patient pulled out his nasogastric tube early this morning, and since the drainage was minimal, no new tube was placed. Chest x-ray continues to show some minimal atelectasis at the bases, right hemidiaphragm remains elevated. Patient is in atrial fibrillation with RVR, and his Lopressor was increased. Patient remains on Zosyn for his abdominal sepsis remains on TPN at 55 ML's per hour. Colostomy is noted to be slightly functional with minimal serous fluid noted in the colostomy. And the DEJON drain seems to be also functional with serous drainage noted. Patient remains on aspiration precautions, remains nothing by mouth. And his overall clinical status is marginal at best. Remains confused, asking to be sent home today. Labs today showed WBC of 13.4 hemoglobin 13.6 INR is therapeutic at 2.3 left lites are normal potassium is a bit low at 3.1 Reevaluated today on 06/30/20, patient is feeling better today, no nausea no vomiting, no shortness of breath, he feels generally weak. He is on 4 L nasal cannula, O2 saturations 96%. Patient is on TPN at 55 ML per hour. He remains on Zosyn and Flagyl. His colostomy bag is full of dark material. Obviously, his bowels are functioning. Patient continues to have intermittent confusion, but seems much better today. He is tolerating ice chips and popsicles. And I think his oral intake will be advanced by general surgery today. Mostly because there is evidence of gas and stool in his colostomy bag. Reviewed INR is therapeutic and lites are normal WBC is 14.9 hemoglobin is 13.0 chest x-ray showed improvement in his atelectasis, continues to have right hemidiaphragm elevation Reevaluated today on 07/01/20, patient remains in the ICU, he is presently an overflow. Patient is continuing to do well, seems to be more appropriate, less confused, hemodynamically stable, and he is on 3 L nasal cannula. Patient is tolerating clear diet quite well. Remains on TPN at 55 ML per hour, and I will cut it down as the patient is tolerating oral intake. I plan to transfer the patient today to a medical surgical bed with telemetry. Chest x-ray is reassuring except for minimal atelectasis. WBC count is 13.5 hemoglobin is 12 lites are normal potassium is a bit low being corrected as per protocol. INR is 2.3, therapeutic The patient is seen today 07/02/2020 in follow-up on the regular medical floor. He is currently resting comfortably in bed. Awake and alert in no acute distress. Maintaining O2 saturations in the 90s on 2 L/m per nasal cannula. He's been afebrile. Follow-up blood cultures reveal no growth. Sputum culture revealed no growth. White count 18.0. Hemoglobin 12.8. INR 2.1. Sodium 137. Potassium 4.2. Creatinine 0.93. He remains on Zosyn. Tolerating full liquid diet. Ostomy functioning with loose stools. On 07/03/2020 patient seen in follow-up on general medical surgical floor. He is resting comfortably in bed, appears generally weak, but no acute distress, breathing seems to be comfortable, he is currently on room air, with pulse ox of 93%, his had no fever chills, hemodynamically has been stable. Today's labs have been reviewed, white blood cell count is trending down, down to 13.6, hemoglobin is 11.3, electrolytes within normal limits, B1 is 30 creatinine 0.9. No worsening dyspnea, lung sounds reveal diminished breath sounds at the bases, no rhonchi or wheezing. Patient is tolerating oral diet, his colostomy is functioning, putting out liquid brown stool. He has had no nausea or vomiting. He has been on TPN at a rate of 55 ML per hour. He is on antibiotics in the form of Diflucan, and Zosyn, ID service is following. His anaerobic surgical culture revealed anaerobic gram-positive bacilli and gram-positive cocci. Patient has significant amount of anasarca, generalized swelling especially involving lower extremities. Last chest x-ray showed persistent low lung volumes and elevated right hemidiaphragm. Persistent patchy bibasilar Infiltrate and atelectasis and suspected small bilateral pleural effusions. Nephrology is following, patient is on daily dose of oral Lasix. He is in -2.3 L over last 24 hours. Has had no nausea or vomiting. On modified diet with dysphagia 3 Objective - Vital Signs Vital signs: Vital Signs Temp 98.5 F 07/03/20 15:16 Pulse 84 07/03/20 15:44 Resp 16 07/03/20 15:16 BP 121/80 07/03/20 15:16 Pulse Ox 93 L 07/03/20 15:16 Intake & Output 07/02/20 07/03/20 07/03/20 18:59 06:59 18:59 Intake Total 1021 517.5 Output Total 1235 2600 800 Balance -214 -2082.5 -800 Weight 93.5 kg Intake: Intake, IV Titration 1021 517.5 Amount Mvi, Adult No.4 with Vit 1021 357.5 K 10 ml Trace (Conc-1Ml/ Dose) 1 ml Potassium Chloride 20 meq In Amino Acid 5%-D15w+Lytes*E* 1, 000 ml @ 55 mls/hr IV . [id number] ROSA Rx#:[id number] Sodium Chloride 0.9% 1, 160 000 ml @ 20 mls/hr IV . Q24H ROSA Rx#:[id number] Output: Drainage 135 100 Abdomen 135 100 Urine 1100 2500 800 Other: Voiding Method Indwelling Catheter Indwelling Catheter # Voids 1 - Exam GENERAL EXAM: Awake and alert 80-year-old white male, room air pulse ox pulse ox of 99-100% comfortable in no apparent distress. HEAD: Normocephalic/atraumatic. EYES: Normal reaction of pupils, equal size. Conjunctiva pink, sclera white. NOSE: Clear with pink turbinates. THROAT: No erythema or exudates. NECK: No masses, no JVD, no thyroid enlargement, no adenopathy. CHEST: No chest wall deformity. Symmetrical expansion. LUNGS: Equal air entry with no crackles, wheeze, rhonchi or dullness. CVS: Regular rate and rhythm, normal S1 and S2, no gallops, no murmurs, no rubs ABDOMEN: Soft, nontender. No hepatosplenomegaly, normal bowel sounds, no guardi ng or rigidity. Midabdominal incision with a wound VAC in place, colostomy in place, liquid stool in the event EXTREMITIES: No clubbing, no edema, no cyanosis, 2+ pulses and upper and lower extremities. MUSCULOSKELETAL: Muscle strength and tone normal. SPINE: No scoliosis or deformity SKIN: No rashes CENTRAL NERVOUS SYSTEM: Slightly drowsy and oriented -1. No focal deficits, tone is normal in all 4 extremities. PSYCHIATRIC: Slightly drowsy and oriented -1. Appropriate affect. Intact judgment and insight. - Labs CBC & Chem 7: 07/03/20 06:56 07/03/20 06:56 Labs: Abnormal Lab Results - Last 24 Hours (Table) 07/02/20 07/03/20 07/03/20 Range/Units 21:02 06:56 06:56 WBC (3.8-10.6) k/uL RBC (4.30-5.90) m/uL Hgb (13.0-17.5) gm/dL Hct (39.0-53.0) % Neutrophils # (Manual) (1.3-7.7) k/uL Lymphocytes # (Manual) (1.0-4.8) k/uL Myelocytes # (Manual) (0) k/uL PT 19.2 H (9.9-11.9) sec INR 1.84 H (0.90-1.11) Anion Gap 2.90 L (4.00-12.00) mmol/L BUN 30.0 H (9.0-27.0) mg/dL BUN/Creatinine Ratio 33.33 H (12.00-20.00) Ratio Glucose 115 H (70-110) mg/dL POC Glucose (mg/dL) 162 H (75-99) mg/dL Calcium 7.6 L (8.7-10.3) mg/dL C-Reactive Protein 1.7 H (0.0-0.8) mg/dL 07/03/20 07/03/20 07/03/20 Range/Units 06:56 07:05 11:40 WBC 13.6 H (3.8-10.6) k/uL RBC 4.05 L (4.30-5.90) m/uL Hgb 11.3 L (13.0-17.5) gm/dL Hct 35.5 L (39.0-53.0) % Neutrophils # (Manual) 11.40 H (1.3-7.7) k/uL Lymphocytes # (Manual) 0.68 L (1.0-4.8) k/uL Myelocytes # (Manual) 0.14 H (0) k/uL PT (9.9-11.9) sec INR (0.90-1.11) Anion Gap (4.00-12.00) mmol/L BUN (9.0-27.0) mg/dL BUN/Creatinine Ratio (12.00-20.00) Ratio Glucose (70-110) mg/dL POC Glucose (mg/dL) 111 H 145 H (75-99) mg/dL Calcium (8.7-10.3) mg/dL C-Reactive Protein (0.0-0.8) mg/dL Microbiology - Last 24 Hours (Table) 06/28/20 09:20 Blood Culture - Preliminary Blood No Growth after 120 hours 06/28/20 13:20 Gram Stain - Final Peritoneal Fluid Body Fluid Culture - Final Assessment and Plan Plan: Assessment: #1. Acute hypoxic respiratory failure due to postoperative hypoventilation, there is a possibility of right diaphragmatic paralysis as evident on the chest x-ray, improving, continue with pulmonary toileting, FiO2 is currently down to 2 L from 8 L per high flow in the immediate postoperative period, expected #2. Perforated sigmoid diverticulitis, with pneumoperitoneum, incarcerated left inguinal hernia, status post exploratory laparotomy with sigmoid resection, descending colostomy creation with rectal stump, reduction and repair of incarcerated left inguinal hernia, Luke's procedure, drainage of sigmoid diverticular abscess, drainage of left inguinal canal abscess and peritoneal lavage. There was a placement of intra-abdominal drain along the pelvis, and placement of wound VAC in the abdominal wall #3. Acute intra-abdominal sepsis related to the above, on Zosyn and Flagyl for antibiotic coverage #4. Acute kidney injury related to acute sepsis, ATN, renal function is improving, and nephrology is on the case #5. A. fib with RVR, the rate is currently better controlled, patient is currently on Coumadin today's INR is 1.8 #6. Hypertension, history of #7. History of prostate cancer, history of surgical resection followed by radiation #8. Osteoarthritis #9. Postoperative ileus, resolved #10. Anasarca, she was started on oral Lasix, and he is maintaining negative fluid balance Plan: No worsening dyspnea, continue with oral dose of Lasix, patient has significant anasarca, however he is diuresing, he is maintaining negative fluid balance, maintain aspiration precautions, patient is on modified diet, continue with antibiotics per ID service recommendations, patient is a very weak, physical therapy is working with him, ostomy is functioning, no nausea or vomiting. Patient will likely require placement in the ECF for rehabilitation following his discharge I performed a history & physical examination of the patient and discussed their management with my nurse practitioner, Vilma Johnson. I reviewed the nurse practitioner's note and agree with the documented findings and plan of care. Lung sounds are positive for diminished breath. The findings and the impression was discussed with the patient. I attest to the documentation by the nurse practitioner. Time with Patient: Less than 30
[2020-07-03] MEDS ORDERED: TAMSULOSIN 0.4 MG CAP.ER.24H PO STA (17:14)
[2020-07-03] MEDS ORDERED: FUROSEMIDE 10 MG/ML 2 ML VIAL IV ONE (17:15)
[2020-07-03 17:30] LABS: Glucose,Whole Blood 104 mg/dL (75-99)
[2020-07-03] MEDS: ACETAMINOPHEN TAB 500 MG TAB PO PRN (17:51)
[2020-07-03] MEDS ORDERED: WARFARIN 3 MG TAB PO ONE (18:00)
[2020-07-03] MEDS: SODIUM CHLORIDE 0.9% 1,000 ML IV SCH (20:05)
[2020-07-03] MEDS: traZODone HCL 50 MG TAB PO SCH (20:55)
--- NOTE | 2020-07-03 22:59 | PN ---
PROGRESS NOTE DATE OF SERVICE: 07/03/2020 REASON FOR FOLLOWUP: Secondary peritonitis from perforated diverticulitis. INTERVAL HISTORY: The patient is currently afebrile. The patient is breathing comfortably. Denies having any chest pain or shortness of breath or cough. No nausea or vomiting. Abdominal pain is currently controlled. Did have output in his colostomy bag. PHYSICAL EXAMINATION: Blood pressure 129/83 with a pulse of 90, temperature 98.6. He is 93% on room air. General description is an elderly male up in the bed in no distress. RESPIRATORY SYSTEM: Unlabored breathing. Clear to auscultation anteriorly. HEART: S1, S2. Regular rate and rhythm. ABDOMEN: Soft. Mildly tender. No guarding or rigidity. LABS: Hemoglobin 11.3, white count 13.6, BUN of 30, creatinine 0.9. Blood culture has been negative. Abdominal culture with anaerobic Gram-negative bacilli. DIAGNOSTIC IMPRESSION AND PLAN: Patient with secondary peritonitis from perforated diverticulitis in this patient who is status post laparotomy and diverting colostomy. The patient's abdominal culture has been negative for resistant pathogen. He is currently covered with Zosyn and oral Diflucan. Plan to finish therapy with oral Cipro, Flagyl and Diflucan for about 7-10 days. Plan of care was discussed with the admitting physician. MMODL / IJN: [id number] /
[2020-07-04] MEDS: IPRATROPIUM-ALBUTEROL 3 ML NEB INHALATION SCH ×7 (00:18→23:47)
[2020-07-04] MEDS: ACETAMINOPHEN TAB 500 MG TAB PO PRN ×3 (04:38→23:45)
[2020-07-04] MEDS: PIPERACILLIN-TAZOBACTAM 3.375 GM in SODIUM CHLORIDE 0.9% 100 ML IVPB SCH ×3 (08:37→23:08)
[2020-07-04] MEDS: amLODIPine 10 MG TAB PO SCH (08:38)
[2020-07-04] MEDS: PANTOPRAZOLE 40 MG/10 ML VIAL IVP SCH (08:38)
[2020-07-04] MEDS: TAMSULOSIN 0.4 MG CAP.ER.24H PO SCH (08:38)
[2020-07-04] MEDS: FUROSEMIDE 20 MG TAB PO SCH (08:38)
[2020-07-04] MEDS: FLUCONAZOLE 100 MG TAB PO SCH (08:38)
[2020-07-04] MEDS: METOPROLOL TARTRATE 50 MG TAB PO SCH ×3 (08:38→20:28)
[2020-07-04 08:42] LABS: Basophils % (A) 0 %; Eosinophils # (A) 0.3 k/uL (0-0.7); Eosinophils % (A) 3 %; HCT 33.3 % (39.0-53.0); HGB 10.6 gm/dL (13.0-17.5); Lymphocytes # (A) 0.9 k/uL (1.0-4.8); Lymphocytes % (A) 6 %; MCH 28.1 pg (25.0-35.0); Mean Platelet Volume 8.3; Monocytes # (A) 0.8 k/uL (0-1.0); Monocytes % (A) 6 %; Neutrophils # (A) 11.4 k/uL (1.3-7.7); Neutrophils % (A) 84 %; Platelet Count 303 k/uL (150-450); RBC 3.78 m/uL (4.30-5.90); RDW 14.5 % (11.5-15.5); WBC 13.6 k/uL (3.8-10.6)
[2020-07-04 11:30] LABS: INR 2.82 (0.90-1.11)
[2020-07-04 12:34] LABS: African American GFR (CKD) 80.9 (60.0-200.0); Anion Gap 4.4 mmol/L (4.00-12.00); Calcium 7.3 mg/dL (8.7-10.3); Carbon Dioxide 28.6 mmol/L (21.6-31.8); Magnesium 1.8 mg/dL (1.5-2.4); Non-African American GFR(CKD) 69.8 (60.0-200.0); Phosphorus 3.2 mg/dL (2.4-5.1); Potassium 3.8 mmol/L (3.5-5.5)
[2020-07-04] MEDS ORDERED: MAGNESIUM SULFATE-D5W PMX 1 GM in DEXTROSE/WATER 1 100ML.BAG IVPB ONE (14:00)
--- NOTE | 2020-07-04 14:17 | P.PN ---
<Jacquie Sanchez - Last Filed: 07/04/20 14:14> Subjective Progress Note Date: 07/04/20 CHIEF COMPLAINT: Abdominal pain HISTORY OF PRESENT ILLNESS: Patient's is being followed for acute diverticulitis with perforation. Patient is tolerating his low fiber diet. He has stool present in his colostomy. He denies any abdominal pain. Denies any nausea or vomiting. He is afebrile. White count 13.6 hemoglobin 10.6 magnesium 1.8 PHYSICAL EXAM: VITAL SIGNS: Reviewed GENERAL: Well-developed in no acute distress. HEENT: No sclera icterus. Extraocular movements grossly intact. Moist buccal mucosa. Head is atraumatic, normocephalic. Hears conversational speech. No nasal drainage. NECK: Supple without lymphadenopathy. CHEST: Non-labored respirations and equal bilateral excursions. CARDIOVASCULAR: Palpable 2+ radial pulses. ABDOMEN: Soft. Mildly distended. Incision site clean dry and intact. Colostomy with brown liquidy stool present and air MUSCULOSKELETAL: No clubbing or cyanosis. NEUROLOGIC: Patient is less confused. No focal or lateralizing signs. Cranial nerves II through XII grossly intact. PSYCH: Appropriate affect. Alert and oriented to person, place and time. SKIN: Well perfused. Good skin turgor. ASSESSMENT: 1. Pneumoperitoneum status post exploratory laparotomy with sigmoid resection for perforated sigmoid diverticulitis, descending colostomy creation with rectal stump, reduction and repair of incarcerated left inguinal hernia, Iwona's procedure for perforated sigmoid diverticulitis, drainage of sigmoid diverticular abscess, drainage of left inguinal canal, abscess, placement of intraabdominal #19 Prince drain along the pelvis and placement of universal incisional PREVENA wound VAC system 2. Acute sigmoid diverticulitis, perforated sigmoid diverticulitis 3. Incarcerated left inguinal hernia 4. Sepsis with mental status changes, new 5. Leukocytosis 6. Atrial fibrillation 7. Chronic Coumadin therapy 8. Hypertensive heart disease 9. History of prostate cancer 10. Status post pelvic radiation for prostate cancer 11. Pelvic diverticular abscess, left lower quadrant 12. Ileus PLAN: -Continue a low fiber diet -Discharge antibiotics per ID -Continue GI and DVT prophylaxis -Patient is surgically stable for discharge home -Follow up with Dr. Lau on 07/11/2020 Physician [employer] note has been reviewed by physician. Signing provider agrees with the documented findings, assessment, and plan of care. Objective - Vital Signs Vital signs: Vital Signs Temp 97.8 F 07/04/20 07:58 Pulse 76 07/04/20 12:21 Resp 20 07/04/20 07:58 BP 118/79 07/04/20 07:58 Pulse Ox 95 07/04/20 07:58 Intake & Output 07/03/20 07/04/20 07/04/20 18:59 06:59 18:59 Intake Total 120 Output Total 800 0 Balance -800 -2089 120 Weight 93.5 kg Intake: Oral 120 Output: Drainage 90 Abdomen 90 Urine 800 2000 Other: Voiding Method Indwelling Catheter - Labs CBC & Chem 7: 07/04/20 07:37 07/04/20 07:37 Labs: Abnormal Lab Results - Last 24 Hours (Table) 07/03/20 07/04/20 07/04/20 Range/Units 17:26 07:37 07:37 WBC 13.6 H (3.8-10.6) k/uL RBC 3.78 L (4.30-5.90) m/uL Hgb 10.6 L (13.0-17.5) gm/dL Hct 33.3 L (39.0-53.0) % Neutrophils # 11.4 H (1.3-7.7) k/uL Lymphocytes # 0.9 L (1.0-4.8) k/uL PT (9.9-11.9) sec INR (0.90-1.11) BUN 29.0 H (9.0-27.0) mg/dL BUN/Creatinine Ratio 29.00 H (12.00-20.00) Ratio POC Glucose (mg/dL) 104 H (75-99) mg/dL Calcium 7.3 L (8.7-10.3) mg/dL 07/04/20 Range/Units 07:37 WBC (3.8-10.6) k/uL RBC (4.30-5.90) m/uL Hgb (13.0-17.5) gm/dL Hct (39.0-53.0) % Neutrophils # (1.3-7.7) k/uL Lymphocytes # (1.0-4.8) k/uL PT 29.0 H (9.9-11.9) sec INR 2.82 H (0.90-1.11) BUN (9.0-27.0) mg/dL BUN/Creatinine Ratio (12.00-20.00) Ratio POC Glucose (mg/dL) (75-99) mg/dL Calcium (8.7-10.3) mg/dL Microbiology - Last 24 Hours (Table) 06/28/20 09:20 Blood Culture - Final Blood No Growth after 144 hours <Tosha Lau - Last Filed: 07/04/20 23:05> Subjective Patient seen and evaluated. Patient and nurse reports discharge held by hospitalist. Patient's Coumadin increased from 1.8-2.8 following administration of combination of ciprofloxacin, Flagyl, Diflucan hence discharged home. Otherwise, patient reports ambulating and has increased strength. He is fairly upset that he is not able to go home today. He is voiding spontaneously after Lasix, Flomax and Granado discontinued. He is tolerating diet. Sepsis is resolved. Ileus is resolved. Agree with adjustment of anticoagulant as current antibiotic regimen interferes with Coumadin function and increase his INR. Otherwise, patient to be discharged DEJON drain. Follow-up in the office within 2 weeks. Objective - Vital Signs Vital signs: Vital Signs Temp 97.7 F 07/04/20 19:03 Pulse 80 07/04/20 20:03 Resp 16 07/04/20 15:48 BP 111/75 07/04/20 19:03 Pulse Ox 93 L 07/04/20 19:03 Intake & Output 07/04/20 07/04/20 07/05/20 06:59 18:59 06:59 Intake Total 120 140 Output Total 2090 300 Balance -0 -180 140 Intake: Intake, IV Titration 140 Amount Piperacillin-Tazobactam 3 100 .375 gm In Sodium Chloride 0.9% 100 ml @ 25 mls/hr IVPB Q8HR ROSA Rx# :[id number] Sodium Chloride 0.9% 1, 40 000 ml @ 20 mls/hr IV . Q24H ROSA Rx#:[id number] Oral 120 Output: Drainage 90 Abdomen 90 Urine 2000 300 Other: Voiding Method Indwelling Catheter Toilet Urinal # Voids 1 # Bowel Movements 1 - Labs CBC & Chem 7: 07/04/20 07:37 07/04/20 07:37 Labs: Abnormal Lab Results - Last 24 Hours (Table) 07/04/20 07/04/20 07/04/20 Range/Units 07:37 07:37 07:37 WBC 13.6 H (3.8-10.6) k/uL RBC 3.78 L (4.30-5.90) m/uL Hgb 10.6 L (13.0-17.5) gm/dL Hct 33.3 L (39.0-53.0) % Neutrophils # 11.4 H (1.3-7.7) k/uL Lymphocytes # 0.9 L (1.0-4.8) k/uL PT 29.0 H (9.9-11.9) sec INR 2.82 H (0.90-1.11) BUN 29.0 H (9.0-27.0) mg/dL BUN/Creatinine Ratio 29.00 H (12.00-20.00) Ratio Calcium 7.3 L (8.7-10.3) mg/dL Microbiology - Last 24 Hours (Table) 06/28/20 09:20 Blood Culture - Final Blood No Growth after 144 hours Assessment and Plan (1) Sigmoid diverticulitis Current Visit: Yes Status: Acute Code(s): K57.32 - DVTRCLI OF LG INT W/O PERFORATION OR ABSCESS W/O BLEEDING SNOMED Code(s): 502119079 (2) Prostate cancer Current Visit: Yes Status: Acute Code(s): C61 - MALIGNANT NEOPLASM OF PROSTATE SNOMED Code(s): 709082483 (3) Atrial fibrillation Current Visit: Yes Status: Acute Code(s): I48.91 - UNSPECIFIED ATRIAL FIBRILLATION SNOMED Code(s): 57447388 (4) Anticoagulated on Coumadin Current Visit: Yes Status: Acute Code(s): Z79.01 - JAIL (CURRENT) USE OF ANTICOAGULANTS SNOMED Code(s): 41543212 (5) Pneumoperitoneum Current Visit: Yes Status: Acute Code(s): K66.8 - OTHER SPECIFIED DISORDERS OF PERITONEUM SNOMED Code(s): 75792524
--- NOTE | 2020-07-04 15:25 | P.PN ---
Subjective Progress Note Date: 07/04/20 Principal diagnosis: Acute perforated sigmoid diverticulitis and acute kidney injury 80-year-old white male patient who follows with Dr. Joel, has a past medical history of prostate cancer with prior surgery followed by radiation, hypertension, paroxysmal atrial fibrillation on Coumadin, chronic back pain, who came into the hospital on 06/22/2020 for evaluation of increasing lower abdominal pain of 2 day history with intermittent nausea and vomiting. Patient also complained of constipation. CT of the abdomen and pelvis showed extensive sigmoid diverticulosis with a segment of diverticulitis and some fat and fluid containing left inguinal hernia and few fluid-filled loops of distal ileum suggestive of mild ileus. Initially patient was started on antibiotics, surgic al consultation was obtained, patient was kept nothing by mouth. ID service was consulted, patient was being treated with the combination of Zosyn and Flagyl. Patient developed acute kidney injury likely from hypotension and ATN. Nephrology was consulted. Over the weekend patient has developed atrial fibrillation with RVR. Follow-up abdominal x-ray on 06/25/2020 showed pneumoperitoneum, requiring emergent surgical intervention. In the evening of 06/25/2020 patient underwent Holter laparotomy with sigmoid resection for perforated sigmoid diverticulitis, descending colostomy creation with rectal stump, reduction and repair of incarcerated left inguinal hernia, Luke's procedure for perforated sigmoid diverticulitis, drainage of sigmoid diverticula abscess, drainage of left inguinal canal abscess, and peritoneal lavage. Today is postoperative day #1. Patient is seen in the intensive care unit, patient came to the intensive care unit following his surgery last night extubated, on high flow oxygen at 8 L, and FiO2 is currently down to 3 L and pulse ox is between 97-100%. Patient is arousable, a bit drowsy, but slow to respond, inattentive. CAM-ICU was positive. Hemodynamically patient is stable. Currently on 0.9 normal saline at a rate of 100 ML per hour. No vasoactive drips, no other infusions. Remains nothing by mouth, slight abdominal tenderness, abdominal incision with a wound VAC in place the total of 80 ML drainage since surgery. Denies any difficulty breathing, breathing is comfortable, this morning's chest x-ray shows elevation of the right hemidiaphragm with the possibility of hemidiaphragmatic paralysis, hypoventilatory changes with either mild pulmonary vascular congestion or oral crowding of the vascular markings. Patchy left basilar atelectasis. Patient continues on Zosyn and Flagyl for antibiotic coverage. Today's labs showed white blood cell count of 14.9, hemoglobin of 12.9, INR is 1.8, sodium is 140, potassium is 4.2, chloride is 112, BUN of 46, creatinine is 1.25, patient is receiving Dilantin for pain and discomfort, appears to be in no acute distress. He is in atrial fibrillation with a controlled rate, he is having an echocar diogram done. Patient was reevaluated today on 06/27/20, remains in the ICU, on 2 L nasal cannula, O2 saturations 96%. Patient is intermittently confused, but this morning he seems to be very appropriate. He is on TPN at 30 mL per hour, IV fluid is at 100 mL per hour. Patient is in atrial fibrillation with RVR rate of 1 24/m. That is being addressed by cardiology on the case. Patient is posto perative day #2 underwent exploratory laparotomy, sigmoid resection and colostomy. Labs were all reviewed, CBC is relatively unremarkable. Electrolytes are normal potassium is a bit low at 3.4 being corrected as per protocol. INR is 2.4, therapeutic. Chest x-ray showed minimal right pleural effusion with elevation of the right hemidiaphragm, and streaky atelectasis at the left base. Patient was evaluated today on 06/28/20, patient was transferred back to the ICU early this morning mostly because he was noted by the nurse to have increased work of breathing, and increased abdominal distention with increased abdominal girth. Patient was brought down to the ICU, chest x-ray showed mostly bibasilar atelectasis with significant elevation of the left hemidiaphragm along with the right hemidiaphragm and there was significant large stomach bubble. Nasogastric tube was placed, and significant amount of bilious material over 1 L drained within a few minutes from the stomach. Patient felt a bit nauseated but felt better after the drainage of the stomach. Chest x-ray showed no evidence of pneumonia or evidence of congestive heart failure. ABG showed a pO2 of 70 pCO2 30 pH of 7.47. Basic metabolic profile was normal CBC was relatively normal x- rays of the abdomen and pelvis showed significant dilated bowel loops, and possible ileus or bowel obstruction. This is being addressed by surgery on the case. There was no evidence of free air. Patient was evaluated today in the ICU on 06/29/20, patient is resting in bed, on 4 L nasal cannula SATURATING 95%. Patient pulled out his nasogastric tube early this morning, and since the drainage was minimal, no new tube was placed. Chest x-ray continues to show some minimal atelectasis at the bases, right hemidiaphragm remains elevated. Patient is in atrial fibrillation with RVR, and his Lopressor was increased. Patient remains on Zosyn for his abdominal sepsis remains on TPN at 55 ML's per hour. Colostomy is noted to be slightly functional with minimal serous fluid noted in the colostomy. And the DEJON drain seems to be also functional with serous drainage noted. Patient remains on aspiration precautions, remains nothing by mouth. And his overall clinical status is marginal at best. Remains confused, asking to be sent home today. Labs today showed WBC of 13.4 hemoglobin 13.6 INR is therapeutic at 2.3 left lites are normal potassium is a bit low at 3.1 Reevaluated today on 06/30/20, patient is feeling better today, no nausea no vomiting, no shortness of breath, he feels generally weak. He is on 4 L nasal cannula, O2 saturations 96%. Patient is on TPN at 55 ML per hour. He remains on Zosyn and Flagyl. His colostomy bag is full of dark material. Obviously, his bowels are functioning. Patient continues to have intermittent confusion, but seems much better today. He is tolerating ice chips and popsicles. And I think his oral intake will be advanced by general surgery today. Mostly because there is evidence of gas and stool in his colostomy bag. Reviewed INR is therapeutic and lites are normal WBC is 14.9 hemoglobin is 13.0 chest x-ray showed improvement in his atelectasis, continues to have right hemidiaphragm elevation Reevaluated today on 07/01/20, patient remains in the ICU, he is presently an overflow. Patient is continuing to do well, seems to be more appropriate, less confused, hemodynamically stable, and he is on 3 L nasal cannula. Patient is tolerating clear diet quite well. Remains on TPN at 55 ML per hour, and I will cut it down as the patient is tolerating oral intake. I plan to transfer the patient today to a medical surgical bed with telemetry. Chest x-ray is reassuring except for minimal atelectasis. WBC count is 13.5 hemoglobin is 12 lites are normal potassium is a bit low being corrected as per protocol. INR is 2.3, therapeutic The patient is seen today 07/02/2020 in follow-up on the regular medical floor. He is currently resting comfortably in bed. Awake and alert in no acute distress. Maintaining O2 saturations in the 90s on 2 L/m per nasal cannula. He's been afebrile. Follow-up blood cultures reveal no growth. Sputum culture revealed no growth. White count 18.0. Hemoglobin 12.8. INR 2.1. Sodium 137. Potassium 4.2. Creatinine 0.93. He remains on Zosyn. Tolerating full liquid diet. Ostomy functioning with loose stools. On 07/03/2020 patient seen in follow-up on general medical surgical floor. He is resting comfortably in bed, appears generally weak, but no acute distress, breathing seems to be comfortable, he is currently on room air, with pulse ox of 93%, his had no fever chills, hemodynamically has been stable. Today's labs have been reviewed, white blood cell count is trending down, down to 13.6, hemoglobin is 11.3, electrolytes within normal limits, B1 is 30 creatinine 0.9. No worsening dyspnea, lung sounds reveal diminished breath sounds at the bases, no rhonchi or wheezing. Patient is tolerating oral diet, his colostomy is functioning, putting out liquid brown stool. He has had no nausea or vomiting. He has been on TPN at a rate of 55 ML per hour. He is on antibiotics in the form of Diflucan, and Zosyn, ID service is following. His anaerobic surgical culture revealed anaerobic gram-positive bacilli and gram-positive cocci. Patient has significant amount of anasarca, generalized swelling especially involving lower extremities. Last chest x-ray showed persistent low lung volumes and elevated right hemidiaphragm. Persistent patchy bibasilar Infiltrate and atelectasis and suspected small bilateral pleural effusions. Nephrology is following, patient is on daily dose of oral Lasix. He is in -2.3 L over last 24 hours. Has had no nausea or vomiting. On modified diet with dysphagia 3 On 07/04/2020 patient seen in follow-up on general medical surgical floor. He is resting quietly in bed, seems to be worn out, but no acute distress, denies any shortness of breath, he is on room air, lung sounds are clear to auscultation, patient appears to be very weak, however physical therapy states that patient has been able to ambulate 120 feet yesterday during their physical therapy session. Apparently required help with get not into a standing position, however after that only require limited assistance. Lorcet of edema has improved, patient received additional dose of Lasix. No nausea or vomiting, he is tolerating oral intake, he is on modified diet, denies any abdominal pain, his colostomy is putting out soft stool. No new chest x-ray, room air pulse ox 95%, since he had no fever or chills. Abdomen is soft, nontender means on antibiotic form of Zosyn. Today's labs have been reviewed, shows a white blood cell count of 13.6, hemoglobin of 10.6, INR is 2.8, elects lites are within normal limits, BUN of 29 creatinine is 1 Objective - Vital Signs Vital signs: Vital Signs Temp 97.8 F 07/04/20 07:58 Pulse 76 07/04/20 12:21 Resp 20 07/04/20 07:58 BP 118/79 07/04/20 07:58 Pulse Ox 95 07/04/20 07:58 Intake & Output 07/03/20 07/04/20 07/04/20 18:59 06:59 18:59 Intake Total 120 Output Total 800 2090 Balance -800 -2089 120 Weight 93.5 kg Intake: Oral 120 Output: Drainage 90 Abdomen 90 Urine 800 2000 Other: Voiding Method Indwelling Catheter - Exam GENERAL EXAM: Awake and alert 80-year-old white male, room air pulse ox pulse ox of 99-100% comfortable in no apparent distress. HEAD: Normocephalic/atraumatic. EYES: Normal reaction of pupils, equal size. Conjunctiva pink, sclera white. NOSE: Clear with pink turbinates. THROAT: No erythema or exudates. NECK: No masses, no JVD, no thyroid enlargement, no adenopathy. CHEST: No chest wall deformity. Symmetrical expansion. LUNGS: Equal air entry with no crackles, wheeze, rhonchi or dullness. CVS: Regular rate and rhythm, normal S1 and S2, no gallops, no murmurs, no rubs ABDOMEN: Soft, nontender. No hepatosplenomegaly, normal bowel sounds, no guarding or rigidity. Midabdominal incision with a wound VAC in place, colostomy in place, liquid stool in the colostomy, right lower abdomen DEJON drain with small amount of servicing this output EXTREMITIES: No clubbing, 1+ lower extremity ashley, no cyanosis, 2+ pulses and upper and lower extremities. MUSCULOSKELETAL: Muscle strength and tone normal. SPINE: No scoliosis or deformity SKIN: No rashes CENTRAL NERVOUS SYSTEM: Slightly drowsy and oriented -3. No focal deficits, tone is normal in all 4 extremities. PSYCHIATRIC: Slightly drowsy and oriented -1. Appropriate affect. Intact judgment and insight. - Labs CBC & Chem 7: 07/04/20 07:37 07/04/20 07:37 Labs: Abnormal Lab Results - Last 24 Hours (Table) 07/03/20 07/04/20 07/04/20 Range/Units 17:26 07:37 07:37 WBC 13.6 H (3.8-10.6) k/uL RBC 3.78 L (4.30-5.90) m/uL Hgb 10.6 L (13.0-17.5) gm/dL Hct 33.3 L (39.0-53.0) % Neutrophils # 11.4 H (1.3-7.7) k/uL Lymphocytes # 0.9 L (1.0-4.8) k/uL PT (9.9-11.9) sec INR (0.90-1.11) BUN 29.0 H (9.0-27.0) mg/dL BUN/Creatinine Ratio 29.00 H (12.00-20.00) Ratio POC Glucose (mg/dL) 104 H (75-99) mg/dL Calcium 7.3 L (8.7-10.3) mg/dL 07/04/20 Range/Units 07:37 WBC (3.8-10.6) k/uL RBC (4.30-5.90) m/uL Hgb (13.0-17.5) gm/dL Hct (39.0-53.0) % Neutrophils # (1.3-7.7) k/uL Lymphocytes # (1.0-4.8) k/uL PT 29.0 H (9.9-11.9) sec INR 2.82 H (0.90-1.11) BUN (9.0-27.0) mg/dL BUN/Creatinine Ratio (12.00-20.00) Ratio POC Glucose (mg/dL) (75-99) mg/dL Calcium (8.7-10.3) mg/dL Microbiology - Last 24 Hours (Table) 06/28/20 09:20 Blood Culture - Final Blood No Growth after 144 hours Assessment and Plan Plan: Assessment: #1. Acute hypoxic respiratory failure due to postoperative hypoventilation, there is a possibility of right diaphragmatic paralysis as evident on the chest x-ray, improving, continue with pulmonary toileting, FiO2 is currently down to 2 L from 8 L per high flow in the immediate postoperative period, expected #2. Perforated sigmoid diverticulitis, with pneumoperitoneum, incarcerated left inguinal hernia, status post exploratory laparotomy with sigmoid resection, descending colostomy creation with rectal stump, reduction and repair of incarcerated left inguinal hernia, Luke's procedure, drainage of sigmoid diverticular abscess, drainage of left inguinal canal abscess and peritoneal lavage. There was a placement of intra-abdominal drain along the pelvis, and placement of wound VAC in the abdominal wall #3. Acute intra-abdominal sepsis related to the above, on Zosyn and Flagyl for antibiotic coverage #4. Acute kidney injury related to acute sepsis, ATN, renal function is improving, and nephrology is on the case #5. A. fib with RVR, the rate is currently better controlled, patient is currently on Coumadin today's INR is 1.8 #6. Hypertension, history of #7. History of prostate cancer, history of surgical resection followed by radiation #8. Osteoarthritis #9. Postoperative ileus, resolved #10. Anasarca, she was started on oral Lasix, and he is maintaining negative fluid balance Plan: Continue with oral diuretics, patient is maintaining negative fluid balance, and a balance per ID service recommendations, vital signs stable, patient is on room air, no worsening dyspnea, continue encouraging deep breathing and coughing, increase activity as tolerated, patient is part is been in physical therapy, INR is therapeutic today, patient's rate is controlled, abdomen is nontender, colostomy is functioning, no worsening dyspnea. Continue physical therapy. Daily electrolytes and renal profile, we'll continue to follow I performed a history & physical examination of the patient and discussed their management with my nurse practitioner, Vilma Johnson. I reviewed the nurse practitioner's note and agree with the documented findings and plan of care. Lung sounds are positive for diminished breath. The findings and the impression was discussed with the patient. I attest to the documentation by the nurse abbey browne. Time with Patient: Less than 30
[2020-07-04] MEDS: LIDOCAINE 5% PATCH TOPICAL SCH (15:41)
[2020-07-04 15:49] VITALS: RESP 16
[2020-07-04] MEDS ORDERED: WARFARIN 2 MG TAB PO ONE (18:00)
[2020-07-04] MEDS: traZODone HCL 50 MG TAB PO SCH (20:28)
[2020-07-04] MEDS: SODIUM CHLORIDE 0.9% 1,000 ML IV SCH (21:19)
--- NOTE | 2020-07-04 21:53 | P.PN ---
Subjective Hospital course from records This is a very pleasant 80-year-old patient of Dr. Joel. Chronic stable medical conditions include paroxysmal atrial fibrillation on Coumadin, hypertension, prostate cancer treated by surgery and followed by radiation treatment a year later, back surgery. The last 2 or 3 days patient with having increasing lower abdominal pain started off with nausea after he presented today also vomited couple of times. Denied any fever and chills. Patient baseline normally has 2 or 3 bowel movements a day. Last bowel movement was 2 days ago. Abdomen felt distended. Computed tomography scan of the abdomen that showed extensive sigmoid diverticulosis with asymmetry with a segment of diverticulitis and some fat and fluid containing left inguinal hernia and few fluid-filled loops of distal ileum. Admitted with acute sigmoid diverticular to severe, with ileus. Coumadin toxicity for which received vitamin K.on June 25 evening patient was taken to the OR by Dr. Kwok. Found to have a perforated sigmoid diverticulitis with stool and pus in the abdomen.patient underwent sigmoid resection followed by colostomy creation and repair of incarcerated left inguinal hernia/Luke's procedure. Pericardial large. Drain was placed. An incisional wound VAC was placed. Postprocedure, admitted to the ICU. Started on IV TPN and lipids. On IV Zosyn and Flagyl. Patient was moved out of the ICU. Patient had a postop ileus. Had a NG placed.related to atrial fibrillation. Accidentally patient pulled the NG tube out. [id number] in atrial fibrillation. Rate controlled. Some stool out in the colostomy bag. Tired. at the bedside.started on clear liquids by surgery today. 07/01/2020 Patient is seen and examined today in the ICU, his lying comfortable in bed. Hysterectomy liquid diet and he has 2 bowel movements, about 100 milliliter of fluid was attempted. Colostomy back is in place. Abdominal pain was controlled. Hemodynamically stable. He has mild leukocytosis of 13.5 K, INR is 2.3, potassium 3.3 and creatinine normal 0.8. Patient is to be moved today to the Medr unit intubated available Several consultants on the case including surgery , nephrology, pulmonary/critical care team and cardiology Patient remains on TPN, oral Lasix, Flagyl and Zosyn. Also he is on warfarin 07/02/2020 Patient is moved to the general medical floor. Hysterectomy. He is tolerating Liquid diet and lying comfortable in bed. Abdominal tenderness controlled, he has normal bowel movements. However is passing gas through his colostomy bag. No nausea vomiting . No fever and vitals are stable. His little dyspneic and feels tired but no actual breathing difficulty. WBC is 18 K today. INR is 2.1. BMP is unremarkable. Patient remains on Zosyn. Also continue with warfarin Patient continued to improve. Pulmonary team signed off 07/03/20 Patient In bed comfortable not in distress, hysterectomy liquid diet which is been advanced, no vomiting abdominal pain is controlled his colostomy back looks empty however he has little yesterday and today as per staff, we will discontinue TPN WBCs improvement of 13.6 K. BMP is unremarkable. INR is 1.8 continue with coumadine pharmacy to dose. Antibiotics as per ID team. Other consultants signs of my pulmonary, nephrology and probably cardiology teams Possible discharge in 24-48 hours he keeps improving 07/04/2020 Patient could not be discharged today although he was cleared by surgery team. His INR is 2.8 and infectious disease recommended antibiotics upon discharge including Cipro which most likely will interact with Coumadin and leading to her level of INR with the patient is completed. I tried to talk to his PCP Dr. Joel but is not available for 1 week. I discussed with patient, at [facility] and social sciences chair. Patient agrees to switch Eliquis, the co-pay is $10 per month and first mouth is free and patient and agree however his INR has to be less than 2 to start liquids. Patient still does not want to go to subacute rehab recommended by PT/OT because he misses his family and they're not allowed to visit him at the [facility] Objective - Vital Signs Vital signs: Vital Signs Temp 97.8 F 07/04/20 07:58 Pulse 76 07/04/20 12:21 Resp 20 07/04/20 07:58 BP 118/79 07/04/20 07:58 Pulse Ox 95 07/04/20 07:58 Intake & Output 07/03/20 07/04/20 07/04/20 18:59 06:59 18:59 Intake Total 120 Output Total 800 0 Balance - 120 Weight 93.5 kg Intake: Oral 120 Output: Drainage 90 Abdomen 90 Urine 800 2000 Other: Voiding Method Indwelling Catheter - Exam GENERAL: The patient is alert and oriented x3, not in any acute distress. Well developed, well nourished. HEENT: Pupils are round and equally reacting to light. EOMI. No scleral icterus. No conjunctival pallor. Normocephalic, atraumatic. No pharyngeal erythema. No thyromegaly. CARDIOVASCULAR: S1 and S2 present. No murmurs, rubs, or gallops. PULMONARY: Chest is clear to auscultation, no wheezing or crackles. -ABDOMEN: Soft, nontender, nondistended, normoactive bowel sounds. No palpable organomegaly. Colostomy back on the left side MUSCULOSKELETAL: No joint swelling or deformity. EXTREMITIES: No cyanosis, clubbing, or pedal edema. NEUROLOGICAL: Gross neurological examination did not reveal any focal deficits. SKIN: No rashes. no petechiae. - Labs CBC & Chem 7: 07/04/20 07:37 07/04/20 07:37 Labs: Abnormal Lab Results - Last 24 Hours (Table) 07/03/20 07/04/20 07/04/20 Range/Units 17:26 07:37 07:37 WBC 13.6 H (3.8-10.6) k/uL RBC 3.78 L (4.30-5.90) m/uL Hgb 10.6 L (13.0-17.5) gm/dL Hct 33.3 L (39.0-53.0) % Neutrophils # 11.4 H (1.3-7.7) k/uL Lymphocytes # 0.9 L (1.0-4.8) k/uL PT (9.9-11.9) sec INR (0.90-1.11) BUN 29.0 H (9.0-27.0) mg/dL BUN/Creatinine Ratio 29.00 H (12.00-20.00) Ratio POC Glucose (mg/dL) 104 H (75-99) mg/dL Calcium 7.3 L (8.7-10.3) mg/dL 07/04/20 Range/Units 07:37 WBC (3.8-10.6) k/uL RBC (4.30-5.90) m/uL Hgb (13.0-17.5) gm/dL Hct (39.0-53.0) % Neutrophils # (1.3-7.7) k/uL Lymphocytes # (1.0-4.8) k/uL PT 29.0 H (9.9-11.9) sec INR 2.82 H (0.90-1.11) BUN (9.0-27.0) mg/dL BUN/Creatinine Ratio (12.00-20.00) Ratio POC Glucose (mg/dL) (75-99) mg/dL Calcium (8.7-10.3) mg/dL Microbiology - Last 24 Hours (Table) 06/28/20 09:20 Blood Culture - Final Blood No Growth after 144 hours Assessment and Plan Assessment: -Acute severe sigmoid diverticulitis-with perforation-leading to sigmoid resection with Iwona's procedure and a colostomy. Patient has DEJON drain -Acute postop ileus causing respiratory compromise, followed by NG tube to suction-accidentally pulled out by patient-clinically improving -Secondary peritonitis secondary to ruptured viscus, causing sepsis -repair- Incarcerated left inguinal hernia -Acute kidney injury likely from improved -Colonic diverticulosis -Paroxysmal atrial fibrillation chronically on Coumadin-uncontrolled -Coumadin monitoring with toxicity-give vitamin K.-Corrected -Prostate cancer with a history of surgery and radiation treatment -Hypoalbuminemia-reactive Plan: This is a pleasant 80 years old male who presents with perforated diverticulitis status post colostomy. Patient is tolerating diet, he has bowel movement but is improving. several consultants are on the case including surgery, cardiology, pulmonary and nephrology. Continue with antibiotic. Patient cleared for discharge by surgery team however we need to monitor his INR. And start Eliquis when INR less than 2. Labs and medication were reviewed.. Continue same treatment. Continue with symptomatic treatment. Resume home medication. Monitor lytes and vitals. DVT and GI prophylaxis. Further recommendationsas per clinical course of the patient DVT prophylaxis: Coumadine, with INR more than 2 currently GI Prophylaxis: Ppi
[2020-07-04] MEDS ORDERED: IPRATROPIUM-ALBUTEROL 3 ML NEB INHALATION PRN (23:49)
--- NOTE | 2020-07-05 00:59 | PN ---
PROGRESS NOTE DATE OF SERVICE: 07/04/2020 REASON FOR FOLLOWUP: Abdominal abscess from perforated diverticulitis. INTERVAL HISTORY: The patient is currently afebrile. The patient is breathing comfortably. Denies having any chest pain or shortness of breath, cough. Abdominal pain is currently controlled. No nausea, no vomiting. PHYSICAL EXAMINATION: Blood pressure is 111/75 with a pulse of 80, temperature 97.7. He is 93% on room air. General description: The patient is an elderly male lying in bed in no distress. Respiratory system: Unlabored breathing, clear to auscultation anteriorly. Heart S1, S2. Regular rate and rhythm. ABDOMEN: Soft, no tenderness. Incision is currently intact. LABS: Hemoglobin 7.1, white count of 13.6, BUN of 29, creatinine 1.0. DIAGNOSTIC IMPRESSION AND PLAN: Patient with abdominal abscess from perforated diverticulitis status post diverting colostomy. The patient is currently covered with Zosyn and Diflucan to continue. White count still elevated. We will monitor closely. Continue supportive care. MMODL / IJN: [id number] /
[2020-07-05 07:01] LABS: Basophils % (A) 0 %; Eosinophils # (A) 0.3 k/uL (0-0.7); Eosinophils % (A) 3 %; HCT 29.8 % (39.0-53.0); HGB 9.8 gm/dL (13.0-17.5); Lymphocytes # (A) 0.8 k/uL (1.0-4.8); Lymphocytes % (A) 9 %; MCH 28.9 pg (25.0-35.0); MCHC 33.1 g/dL (31.0-37.0); MCV 87.4 fL (80.0-100.0); Mean Platelet Volume 7.5; Monocytes # (A) 0.6 k/uL (0-1.0); Monocytes % (A) 7 %; Neutrophils # (A) 6.8 k/uL (1.3-7.7); Neutrophils % (A) 78 %; Platelet Count 323 k/uL (150-450); RBC 3.41 m/uL (4.30-5.90); RDW 14.7 % (11.5-15.5); WBC 8.7 k/uL (3.8-10.6)
[2020-07-05 07:37] LABS: Glucose,Whole Blood 85 mg/dL (75-99)
[2020-07-05] MEDS: IPRATROPIUM-ALBUTEROL 3 ML NEB INHALATION SCH ×3 (08:14→16:23)
[2020-07-05 09:00] LABS: INR 3.47 (0.90-1.11); Prothrombin Time 35.4 sec (9.9-11.9)
[2020-07-05] MEDS: PANTOPRAZOLE 40 MG/10 ML VIAL IVP SCH (10:25)
[2020-07-05] MEDS: PIPERACILLIN-TAZOBACTAM 3.375 GM in SODIUM CHLORIDE 0.9% 100 ML IVPB SCH ×2 (10:25→17:26)
[2020-07-05] MEDS: amLODIPine 10 MG TAB PO SCH (10:26)
[2020-07-05] MEDS: FLUCONAZOLE 100 MG TAB PO SCH (10:26)
[2020-07-05] MEDS: TAMSULOSIN 0.4 MG CAP.ER.24H PO SCH (10:26)
[2020-07-05] MEDS: METOPROLOL TARTRATE 50 MG TAB PO SCH ×2 (10:26→17:26)
[2020-07-05] MEDS: FUROSEMIDE 20 MG TAB PO SCH (10:27)
[2020-07-05] MEDS: LIDOCAINE 5% PATCH TOPICAL SCH (10:27)
--- NOTE | 2020-07-05 10:38 | P.PN ---
Subjective Hospital course from records This is a very pleasant 80-year-old patient of Dr. Joel. Chronic stable medical conditions include paroxysmal atrial fibrillation on Coumadin, hypertension, prostate cancer treated by surgery and followed by radiation treatment a year later, back surgery. The last 2 or 3 days patient with having increasing lower abdominal pain started off with nausea after he presented today also vomited couple of times. Denied any fever and chills. Patient baseline normally has 2 or 3 bowel movements a day. Last bowel movement was 2 days ago. Abdomen felt distended. Computed tomography scan of the abdomen that showed extensive sigmoid diverticulosis with asymmetry with a segment of diverticulitis and some fat and fluid containing left inguinal hernia and few fluid-filled loops of distal ileum. Admitted with acute sigmoid diverticular to severe, with ileus. Coumadin toxicity for which received vitamin K.on June 25 evening patient was taken to the OR by Dr. Kwok. Found to have a perforated sigmoid diverticulitis with stool and pus in the abdomen.patient underwent sigmoid resection followed by colostomy creation and repair of incarcerated left inguinal hernia/Luke's procedure. Pericardial large. Drain was placed. An incisional wound VAC was placed. Postprocedure, admitted to the ICU. Started on IV TPN and lipids. On IV Zosyn and Flagyl. Patient was moved out of the ICU. Patient had a postop ileus. Had a NG placed.related to atrial fibrillation. Accidentally patient pulled the NG tube out. [id number] in atrial fibrillation. Rate controlled. Some stool out in the colostomy bag. Tired. at the bedside.started on clear liquids by surgery today. 07/01/2020 Patient is seen and examined today in the ICU, his lying comfortable in bed. Hysterectomy liquid diet and he has 2 bowel movements, about 100 milliliter of fluid was attempted. Colostomy back is in place. Abdominal pain was controlled. Hemodynamically stable. He has mild leukocytosis of 13.5 K, INR is 2.3, potassium 3.3 and creatinine normal 0.8. Patient is to be moved today to the Medr unit intubated available Several consultants on the case including surgery , nephrology, pulmonary/critical care team and cardiology Patient remains on TPN, oral Lasix, Flagyl and Zosyn. Also he is on warfarin 07/02/2020 Patient is moved to the general medical floor. Hysterectomy. He is tolerating Liquid diet and lying comfortable in bed. Abdominal tenderness controlled, he has normal bowel movements. However is passing gas through his colostomy bag. No nausea vomiting . No fever and vitals are stable. His little dyspneic and feels tired but no actual breathing difficulty. WBC is 18 K today. INR is 2.1. BMP is unremarkable. Patient remains on Zosyn. Also continue with warfarin Patient continued to improve. Pulmonary team signed off 07/03/20 Patient In bed comfortable not in distress, hysterectomy liquid diet which is been advanced, no vomiting abdominal pain is controlled his colostomy back looks empty however he has little yesterday and today as per staff, we will discontinue TPN WBCs improvement of 13.6 K. BMP is unremarkable. INR is 1.8 continue with coumadine pharmacy to dose. Antibiotics as per ID team. Other consultants signs of my pulmonary, nephrology and probably cardiology teams Possible discharge in 24-48 hours he keeps improving 07/04/2020 Patient could not be discharged today although he was cleared by surgery team. His INR is 2.8 and infectious disease recommended antibiotics upon discharge including Cipro which most likely will interact with Coumadin and leading to her level of INR with the patient is completed. I tried to talk to his PCP Dr. Joel but is not available for 1 week. I discussed with patient, at [facility] and social insurance administrator. Patient agrees to switch Eliquis, the co-pay is $10 per month and first mouth is free and patient and agree however his INR has to be less than 2 to start liquids. Patient still does not want to go to subacute rehab recommended by PT/OT because he misses his family and they're not allowed to visit him at the [facility] 07/05/2020 Patient is awake and alert, he was sitting in bed comfortable, is tolerating his bowel and he has a bowel movement. He denies any other complaints to me Vitals looks stable, he is afebrile and blood pressure 124/87 Labs reviewed from today, WBC is back to normal at 8.7, there is slight drop of hemoglobin 10.6 down to 9.8, platelets are normal at 323K. BMP is unremarkable with sodium 139, creatinine 1.0. Glucose is 851 45. His INR went up from 2.8 up to 3.4, despite holding Coumadin last night. Today patient telling me that he does not want Eliquis. He did not give specific reason although yesterday was stating this is due to valencia issue, I told the patient it is $10 per month , however he does not want Eliquis and he wants to stay on Coumadin, however Coumadin is on hold because of supratherapeutic INR. I explained the risks for the patient including risk of bleeding. patient remains on antibiotics as per ID teamf THE case was discussed with fabian Objective - Vital Signs Vital signs: Vital Signs Temp 98.8 F 07/05/20 01:18 Pulse 73 07/05/20 08:23 Resp 16 07/04/20 15:48 BP 124/87 07/05/20 01:18 Pulse Ox 92 L 07/05/20 01:18 Intake & Output 07/04/20 07/05/20 07/05/20 18:59 06:59 18:59 Intake Total 120 140 Output Total 300 320 Balance -180 140 -320 Intake: Intake, IV Titration 140 Amount Piperacillin-Tazobactam 3 100 .375 gm In Sodium Chloride 0.9% 100 ml @ 25 mls/hr IVPB Q8HR ROSA Rx# :[id number] Sodium Chloride 0.9% 1, 40 000 ml @ 20 mls/hr IV . Q24H ROSA Rx#:[id number] Oral 120 Output: Drainage 20 Abdomen 20 Urine 300 300 Other: Voiding Method Toilet Urinal # Voids 1 2 2 # Bowel Movements 1 1 - Exam GENERAL: The patient is alert and oriented x3, not in any acute distress. Well developed, well nourished. HEENT: Pupils are round and equally reacting to light. EOMI. No scleral icterus. No conjunctival pallor. Normocephalic, atraumatic. No pharyngeal erythema. No thyromegaly. CARDIOVASCULAR: S1 and S2 present. No murmurs, rubs, or gallops. PULMONARY: Chest is clear to auscultation, no wheezing or crackles. -ABDOMEN: Soft, nontender, nondistended, normoactive bowel sounds. No palpable organomegaly. Colostomy back on the left side MUSCULOSKELETAL: No joint swelling or deformity. EXTREMITIES: No cyanosis, clubbing, or pedal edema. NEUROLOGICAL: Gross neurological examination did not reveal any focal deficits. SKIN: No rashes. no petechiae. - Labs CBC & Chem 7: 07/05/20 06:28 07/04/20 07:37 Labs: Abnormal Lab Results - Last 24 Hours (Table) 07/04/20 07/04/20 07/05/20 Range/Units 07:37 07:37 06:28 RBC 3.41 L (4.30-5.90) m/uL Hgb 9.8 L (13.0-17.5) gm/dL Hct 29.8 L (39.0-53.0) % Lymphocytes # 0.8 L (1.0-4.8) k/uL PT 29.0 H (9.9-11.9) sec INR 2.82 H (0.90-1.11) BUN 29.0 H (9.0-27.0) mg/dL BUN/Creatinine Ratio 29.00 H (12.00-20.00) Ratio Calcium 7.3 L (8.7-10.3) mg/dL 07/05/20 Range/Units 06:28 RBC (4.30-5.90) m/uL Hgb (13.0-17.5) gm/dL Hct (39.0-53.0) % Lymphocytes # (1.0-4.8) k/uL PT 35.4 H (9.9-11.9) sec INR 3.47 H (0.90-1.11) BUN (9.0-27.0) mg/dL BUN/Creatinine Ratio (12.00-20.00) Ratio Calcium (8.7-10.3) mg/dL Microbiology - Last 24 Hours (Table) 06/28/20 09:20 Blood Culture - Final Blood No Growth after 144 hours Assessment and Plan Assessment: -Acute severe sigmoid diverticulitis-with perforation-leading to sigmoid resection with Iwona's procedure and a colostomy. Patient has DEJON drain -Acute postop ileus causing respiratory compromise, followed by NG tube to suction-accidentally pulled out by patient-clinically improving -Secondary peritonitis secondary to ruptured viscus, causing sepsis -repair- Incarcerated left inguinal hernia -Paroxysmal atrial fibrillation chronically on Coumadin-uncontrolled -Coagulopathy secondary to supratherapeutic INR -Acute kidney injury likely from improved -Colonic diverticulosis -Coumadin monitoring with toxicity-give vitamin K.-Corrected -Prostate cancer with a history of surgery and radiation treatment -Hypoalbuminemia-reactive Plan: This is a pleasant 80 years old male who presents with perforated diverticulitis status post colostomy. Patient is tolerating diet, he has bowel movement but is improving. several consultants are on the case including surgery, cardiology, pulmonary and nephrology. Continue with antibiotic per recommendation by infectious disease. Patient cleared for discharge by surgery team however we need to monitor his INR and hemoglobin as there is slight drop in hemoglobin and trending up INR despite patient being off Coumadin since yesterday. Patient wants to stay on Coumadin and he refused to take Eliquis, and so patient can restart Coumadin when INR is down again. Benefits, risks and alternatives are explained to the patient. Patient is not ready for discharge today as he is not stable for discharge m edically given his coagulopathy with anemia. Follow-up recommendation by other consultants including pulmonary, infectious disease. Labs and medication were reviewed.. Continue same treatment. Continue with symptomatic treatment. Resume home medication. Monitor lytes and vitals. DVT and GI prophylaxis. Further recommendationsas per clinical course of the patient DVT prophylaxis: Coumadine on hold, with INR more than 2 currently GI Prophylaxis: Ppi Dr. Watson for resume the care of the patient tomorrow 07/06
[2020-07-05] MEDS ORDERED: PHYTONADIONE ORAL 5 MG/5 ML ORAL.SYRG PO STA (12:59)
--- NOTE | 2020-07-05 13:55 | P.PN ---
Subjective Progress Note Date: 07/05/20 Principal diagnosis: Acute perforated sigmoid diverticulitis and acute kidney injury 80-year-old white male patient who follows with Dr. Joel, has a past medical history of prostate cancer with prior surgery followed by radiation, hypertension, paroxysmal atrial fibrillation on Coumadin, chronic back pain, who came into the hospital on 06/22/2020 for evaluation of increasing lower abdominal pain of 2 day history with intermittent nausea and vomiting. Patient also complained of constipation. CT of the abdomen and pelvis showed extensive sigmoid diverticulosis with a segment of diverticulitis and some fat and fluid containing left inguinal hernia and few fluid-filled loops of distal ileum suggestive of mild ileus. Initially patient was started on antibiotics, surgic al consultation was obtained, patient was kept nothing by mouth. ID service was consulted, patient was being treated with the combination of Zosyn and Flagyl. Patient developed acute kidney injury likely from hypotension and ATN. Nephrology was consulted. Over the weekend patient has developed atrial fibrillation with RVR. Follow-up abdominal x-ray on 06/25/2020 showed pneumoperitoneum, requiring emergent surgical intervention. In the evening of 06/25/2020 patient underwent Holter laparotomy with sigmoid resection for perforated sigmoid diverticulitis, descending colostomy creation with rectal stump, reduction and repair of incarcerated left inguinal hernia, Luke's procedure for perforated sigmoid diverticulitis, drainage of sigmoid diverticula abscess, drainage of left inguinal canal abscess, and peritoneal lavage. Today is postoperative day #1. Patient is seen in the intensive care unit, patient came to the intensive care unit following his surgery last night extubated, on high flow oxygen at 8 L, and FiO2 is currently down to 3 L and pulse ox is between 97-100%. Patient is arousable, a bit drowsy, but slow to respond, inattentive. CAM-ICU was positive. Hemodynamically patient is stable. Currently on 0.9 normal saline at a rate of 100 ML per hour. No vasoactive drips, no other infusions. Remains nothing by mouth, slight abdominal tenderness, abdominal incision with a wound VAC in place the total of 80 ML drainage since surgery. Denies any difficulty breathing, breathing is comfortable, this morning's chest x-ray shows elevation of the right hemidiaphragm with the possibility of hemidiaphragmatic paralysis, hypoventilatory changes with either mild pulmonary vascular congestion or oral crowding of the vascular markings. Patchy left basilar atelectasis. Patient continues on Zosyn and Flagyl for antibiotic coverage. Today's labs showed white blood cell count of 14.9, hemoglobin of 12.9, INR is 1.8, sodium is 140, potassium is 4.2, chloride is 112, BUN of 46, creatinine is 1.25, patient is receiving Dilantin for pain and discomfort, appears to be in no acute distress. He is in atrial fibrillation with a controlled rate, he is having an echocar diogram done. Patient was reevaluated today on 06/27/20, remains in the ICU, on 2 L nasal cannula, O2 saturations 96%. Patient is intermittently confused, but this morning he seems to be very appropriate. He is on TPN at 30 mL per hour, IV fluid is at 100 mL per hour. Patient is in atrial fibrillation with RVR rate of 1 24/m. That is being addressed by cardiology on the case. Patient is posto perative day #2 underwent exploratory laparotomy, sigmoid resection and colostomy. Labs were all reviewed, CBC is relatively unremarkable. Electrolytes are normal potassium is a bit low at 3.4 being corrected as per protocol. INR is 2.4, therapeutic. Chest x-ray showed minimal right pleural effusion with elevation of the right hemidiaphragm, and streaky atelectasis at the left base. Patient was evaluated today on 06/28/20, patient was transferred back to the ICU early this morning mostly because he was noted by the nurse to have increased work of breathing, and increased abdominal distention with increased abdominal girth. Patient was brought down to the ICU, chest x-ray showed mostly bibasilar atelectasis with significant elevation of the left hemidiaphragm along with the right hemidiaphragm and there was significant large stomach bubble. Nasogastric tube was placed, and significant amount of bilious material over 1 L drained within a few minutes from the stomach. Patient felt a bit nauseated but felt better after the drainage of the stomach. Chest x-ray showed no evidence of pneumonia or evidence of congestive heart failure. ABG showed a pO2 of 70 pCO2 30 pH of 7.47. Basic metabolic profile was normal CBC was relatively normal x- rays of the abdomen and pelvis showed significant dilated bowel loops, and possible ileus or bowel obstruction. This is being addressed by surgery on the case. There was no evidence of free air. Patient was evaluated today in the ICU on 06/29/20, patient is resting in bed, on 4 L nasal cannula SATURATING 95%. Patient pulled out his nasogastric tube early this morning, and since the drainage was minimal, no new tube was placed. Chest x-ray continues to show some minimal atelectasis at the bases, right hemidiaphragm remains elevated. Patient is in atrial fibrillation with RVR, and his Lopressor was increased. Patient remains on Zosyn for his abdominal sepsis remains on TPN at 55 ML's per hour. Colostomy is noted to be slightly functional with minimal serous fluid noted in the colostomy. And the DEJON drain seems to be also functional with serous drainage noted. Patient remains on aspiration precautions, remains nothing by mouth. And his overall clinical status is marginal at best. Remains confused, asking to be sent home today. Labs today showed WBC of 13.4 hemoglobin 13.6 INR is therapeutic at 2.3 left lites are normal potassium is a bit low at 3.1 Reevaluated today on 06/30/20, patient is feeling better today, no nausea no vomiting, no shortness of breath, he feels generally weak. He is on 4 L nasal cannula, O2 saturations 96%. Patient is on TPN at 55 ML per hour. He remains on Zosyn and Flagyl. His colostomy bag is full of dark material. Obviously, his bowels are functioning. Patient continues to have intermittent confusion, but seems much better today. He is tolerating ice chips and popsicles. And I think his oral intake will be advanced by general surgery today. Mostly because there is evidence of gas and stool in his colostomy bag. Reviewed INR is therapeutic and lites are normal WBC is 14.9 hemoglobin is 13.0 chest x-ray showed improvement in his atelectasis, continues to have right hemidiaphragm elevation Reevaluated today on 07/01/20, patient remains in the ICU, he is presently an overflow. Patient is continuing to do well, seems to be more appropriate, less confused, hemodynamically stable, and he is on 3 L nasal cannula. Patient is tolerating clear diet quite well. Remains on TPN at 55 ML per hour, and I will cut it down as the patient is tolerating oral intake. I plan to transfer the patient today to a medical surgical bed with telemetry. Chest x-ray is reassuring except for minimal atelectasis. WBC count is 13.5 hemoglobin is 12 lites are normal potassium is a bit low being corrected as per protocol. INR is 2.3, therapeutic The patient is seen today 07/02/2020 in follow-up on the regular medical floor. He is currently resting comfortably in bed. Awake and alert in no acute distress. Maintaining O2 saturations in the 90s on 2 L/m per nasal cannula. He's been afebrile. Follow-up blood cultures reveal no growth. Sputum culture revealed no growth. White count 18.0. Hemoglobin 12.8. INR 2.1. Sodium 137. Potassium 4.2. Creatinine 0.93. He remains on Zosyn. Tolerating full liquid diet. Ostomy functioning with loose stools. On 07/03/2020 patient seen in follow-up on general medical surgical floor. He is resting comfortably in bed, appears generally weak, but no acute distress, breathing seems to be comfortable, he is currently on room air, with pulse ox of 93%, his had no fever chills, hemodynamically has been stable. Today's labs have been reviewed, white blood cell count is trending down, down to 13.6, hemoglobin is 11.3, electrolytes within normal limits, B1 is 30 creatinine 0.9. No worsening dyspnea, lung sounds reveal diminished breath sounds at the bases, no rhonchi or wheezing. Patient is tolerating oral diet, his colostomy is functioning, putting out liquid brown stool. He has had no nausea or vomiting. He has been on TPN at a rate of 55 ML per hour. He is on antibiotics in the form of Diflucan, and Zosyn, ID service is following. His anaerobic surgical culture revealed anaerobic gram-positive bacilli and gram-positive cocci. Patient has significant amount of anasarca, generalized swelling especially involving lower extremities. Last chest x-ray showed persistent low lung volumes and elevated right hemidiaphragm. Persistent patchy bibasilar Infiltrate and atelectasis and suspected small bilateral pleural effusions. Nephrology is following, patient is on daily dose of oral Lasix. He is in -2.3 L over last 24 hours. Has had no nausea or vomiting. On modified diet with dysphagia 3 On 07/04/2020 patient seen in follow-up on general medical surgical floor. He is resting quietly in bed, seems to be worn out, but no acute distress, denies any shortness of breath, he is on room air, lung sounds are clear to auscultation, patient appears to be very weak, however physical therapy states that patient has been able to ambulate 120 feet yesterday during their physical therapy session. Apparently required help with get not into a standing position, however after that only require limited assistance. Lorcet of edema has improved, patient received additional dose of Lasix. No nausea or vomiting, he is tolerating oral intake, he is on modified diet, denies any abdominal pain, his colostomy is putting out soft stool. No new chest x-ray, room air pulse ox 95%, since he had no fever or chills. Abdomen is soft, nontender means on antibiotic form of Zosyn. Today's labs have been reviewed, shows a white blood cell count of 13.6, hemoglobin of 10.6, INR is 2.8, elects lites are within normal limits, BUN of 29 creatinine is 1 On 07/05/2020 patient seen in follow-up on general medical surgical floor. He looks much more awake on today's exam, he sitting up in the recliner, he is conversant, looks stronger on today's exam, he denies any shortness of breath, denies any chest pain, denies any abdominal pain, no nausea vomiting, his colostomy is functioning, and producing loose brown stool output. Patient is tolerating oral diet. No shortness of breath, room air pulse ox is 92-93%, hemodynamically stable, no fever or chills. This continues on once daily dose of oral Lasix, he is maintaining negative fluid balance, indwelling catheter has been discontinued, patient is voiding per urinal, lower extremity edema and generalized edema has significantly improved, lung sounds are clear to auscultation, troponin and sinus per monitor, he is achieving 1500 on the today. Vital signs have been stable, no acute events overnight, patient continues on antibiotics in form of Diflucan, and Zosyn, ID service is following. His anaerobic culture showed anaerobic gram-positive and gram-negative organisms. Patient is with physical therapy. Leucocytosis improving, white count is 8.7 on today's labs, hemoglobin is 9.8, INR is 3.47 Objective - Vital Signs Vital signs: Vital Signs Temp 98.8 F 07/05/20 01:18 Pulse 73 07/05/20 08:23 Resp 16 07/04/20 15:48 BP 124/87 07/05/20 01:18 Pulse Ox 92 L 07/05/20 01:18 Intake & Output 07/04/20 07/05/20 07/05/20 18:59 06:59 18:59 Intake Total 120 140 Output Total 300 320 Balance -180 140 -320 Intake: Intake, IV Titration 140 Amount Piperacillin-Tazobactam 3 100 .375 gm In Sodium Chloride 0.9% 100 ml @ 25 mls/hr IVPB Q8HR ROSA Rx# :[id number] Sodium Chloride 0.9% 1, 40 000 ml @ 20 mls/hr IV . Q24H ROSA Rx#:[id number] Oral 120 Output: Drainage 20 Abdomen 20 Urine 300 300 Other: Voiding Method Toilet Urinal # Voids 1 2 2 # Bowel Movements 1 1 - Exam GENERAL EXAM: Awake and alert 80-year-old white male, room air pulse ox pulse ox of 93%, much more awake, and conversant and interactive on today's exam compared to yesterday, sitting up in the recliner, troponin and spends spirometer, achieving 1500 on it today comfortable in no apparent distress. HEAD: Normocephalic/atraumatic. EYES: Normal reaction of pupils, equal size. Conjunctiva pink, sclera white. NOSE: Clear with pink turbinates. THROAT: No erythema or exudates. NECK: No masses, no JVD, no thyroid enlargement, no adenopathy. CHEST: No chest wall deformity. Symmetrical expansion. LUNGS: Equal air entry with no crackles, wheeze, rhonchi or dullness. CVS: Regular rate and rhythm, normal S1 and S2, no gallops, no murmurs, no rubs ABDOMEN: Soft, nontender. No hepatosplenomegaly, normal bowel sounds, no guarding or rigidity. Midabdominal incision with a wound VAC in place, colostomy in place, liquid stool in the colostomy, right lower abdomen DEJON drain with small amount of serous output in the DEJON drain EXTREMITIES: No clubbing, 1+ lower extremity edema, no cyanosis, 2+ pulses and upper and lower extremities. MUSCULOSKELETAL: Muscle strength and tone normal. SPINE: No scoliosis or deformity SKIN: No rashes CENTRAL NERVOUS SYSTEM: Slightly drowsy and oriented -3. No focal deficits, t one is normal in all 4 extremities. PSYCHIATRIC: Slightly drowsy and oriented -1. Appropriate affect. Intact judgment and insight. - Labs CBC & Chem 7: 07/05/20 06:28 07/04/20 07:37 Labs: Abnormal Lab Results - Last 24 Hours (Table) 07/05/20 07/05/20 Range/Units 06:28 06:28 RBC 3.41 L (4.30-5.90) m/uL Hgb 9.8 L (13.0-17.5) gm/dL Hct 29.8 L (39.0-53.0) % Lymphocytes # 0.8 L (1.0-4.8) k/uL PT 35.4 H (9.9-11.9) sec INR 3.47 H (0.90-1.11) Microbiology - Last 24 Hours (Table) 06/28/20 09:20 Blood Culture - Final Blood No Growth after 144 hours Assessment and Plan Plan: Assessment: #1. Acute hypoxic respiratory failure due to postoperative hypoventilation, there is a possibility of right diaphragmatic paralysis as evident on the chest x-ray, improving, continue with pulmonary toileting, FiO2 is currently down to room air from 8 L per high flow in the immediate postoperative period, expected #2. Perforated sigmoid diverticulitis, with pneumoperitoneum, incarcerated left inguinal hernia, status post exploratory laparotomy with sigmoid resection, descending colostomy creation with rectal stump, reduction and repair of incarcerated left inguinal hernia, Luke's procedure, drainage of sigmoid diverticular abscess, drainage of left inguinal canal abscess and peritoneal lavage, postop day 10. There was a placement of intra-abdominal drain along the pelvis, and placement of wound VAC in the abdominal wall #3. Acute intra-abdominal sepsis related to the above, on Zosyn and Diflucan for antibiotic coverage, with anaerobic cultures showing gram-positive and gram- negative organisms #4. Acute kidney injury related to acute sepsis, ATN, renal function is improving, and nephrology is on the case #5. A. fib with RVR, the rate is currently better controlled, patient is currently on Coumadin with supratherapeutic INR today is 3.47 #6. Hypertension, history of #7. History of prostate cancer, history of surgical resection followed by radiation #8. Osteoarthritis #9. Postoperative ileus, resolved #10. Anasarca, he was started on oral Lasix, and he is maintaining negative fluid balance, and generalized swelling is improving Plan: Continue current treatment, continue encouraging deep breathing and coughing, continue current dose of oral Lasix, patient continues to diurese, generalized edema has improved, patient is on room air, will obtain follow-up chest x-ray, antibiotics per ID service recommendations, patient has had no fever or chills, vital signs have been stable, appears more alert, and more interactive on today's exam, he is working with physical therapy, his strength is improving. Discharge planning is following, and the plan is for the patient to return home with home care after discharge. I performed a history & physical examination of the patient and discussed their management with my nurse practitioner, Vilma Johnson. I reviewed the nurse practitioner's note and agree with the documented findings and plan of care. Lung sounds are positive for diminished breath. The findings and the impression was discussed with the patient. I attest to the documentation by the nurse practitioner. Time with Patient: Less than 30
--- NOTE | 2020-07-05 14:02 | CDI ---
Documentation Clarification Form Date: 07/05/2020 01:40:28 PM From: Dottie ClarkWebbMIKE baird, CCDS Admit Date: 06/22/2020 04:16:00 AM Patient Name: Christofer Hampton Visit Number: [id number] Discharge Date: ATTENTION: The Clinical Documentation Specialists (CDI) and [facility] Coding Staff appreciate your assistance in clarifying documentation. Please respond to the clarification below the line at the bottom and electronically sign. The CDI & [facility] Coding staff will review the response and follow-up if needed. Please note: Queries are made part of the Legal Health Record. If you have any questions, please contact the author of this message via ITS. Dr. Tosha Lau: Ileus and Postoperative Ileus is documented throughout the chart. Per the 06/29 Medical Management Progress Note and subsequent Progress Notes: "Acute postop ileus causing respiratory compromise, followed by NG tube to suction-accidentally pulled out by patient." History/Risk Factors: Hypertension, Prostate Cancer, Osteoarthritis. Clinical Indicators: Patient presented to the ED on 06/22 with abdominal pain with history of prostate cancer status post prostatectomy. Admitted with new diagnosis of diverticulitis. Procedure 06/25: Exploratory laparotomy with sigmoid resection for perforated sigmoid diverticulitis, Descending colostomy creation with rectal stump, Reduction & repair of incarcerated left inguinal hernia, Iwona's procedure for perforated sigmoid diverticulitis, Drainage of sigmoid diverticular abscess & drainage of left inguinal canal abscess. DEJON Drain & Wound VAC. RAD 06/22 CT A/P: Sigmoid diverticulosis w/diverticulitis, Fluid filled loops of distal ileum suggestive of mild ileus. RAD 06/28 Abdominal XR: Nonspecific findings may reflect ileus. Treatment 06/22: IV Morphine, IV Zofran, IV fluid 1,000 mls @ 130 mls/hr, IV fluid 500 mls @ 999 mls/hr, IV Flagyl. 06/26: TPN, DEJON drain. 06/28 NGT placed. (Patient pulled NGT out, replaced. In your professional opinion, can you please clarify the documented Ileus: Postoperative Ileus: -->o Yes o No If Yes: --->o Is the Postoperative Ileus an expected outcome of the patient's procedure? o Is the Postoperative Ileus an unexpected outcome of the patient's procedure, please specify cause: (Last Revision: January 2018) Postoperative ileus is an expected outcome with this patient who presents with sepsis including ruptured diverticulitis. KM 07/05/20 @2048 MTDMia
--- NOTE | 2020-07-05 14:14 | XR ---
EXAMINATION TYPE: XR chest 1V portable DATE OF EXAM: 07/05/2020 COMPARISON: 07/01/2020 HISTORY: Abnormal x-ray TECHNIQUE: Single frontal view of the chest is obtained. FINDINGS: Bilateral consolidation and pleural effusion. Heart size stable. Arthropathy of the should ers with the PICC line stable in appearance. Hypertrophic change of the spine. No pneumothorax. IMPRESSION: Stable bilateral lower lobe infiltrate and small effusion.
--- NOTE | 2020-07-05 15:28 | P.PN ---
<Jacquie Sanchez - Last Filed: 07/05/20 15:23> Subjective Progress Note Date: 07/05/20 CHIEF COMPLAINT: Abdominal pain HISTORY OF PRESENT ILLNESS: Patient's is being followed for acute diverticulitis with perforation. Patient is tolerating his low fiber diet. He has stool present in his colostomy. He denies any abdominal pain. Denies any nausea or vomiting. He is afebrile. WBC 8.7 INR 3.47. Patient's plan of care was discussed with medicine service PHYSICAL EXAM: VITAL SIGNS: Reviewed GENERAL: Well-developed in no acute distress. HEENT: No sclera icterus. Extraocular movements grossly intact. Moist buccal mucosa. Head is atraumatic, normocephalic. Hears conversational speech. No nasal drainage. NECK: Supple without lymphadenopathy. CHEST: Non-labored respirations and equal bilateral excursions. CARDIOVASCULAR: Palpable 2+ radial pulses. ABDOMEN: Soft. Nondistended Incision site clean dry and intact. Colostomy with stool present MUSCULOSKELETAL: No clubbing or cyanosis. NEUROLOGIC: Patient is less confused. No focal or lateralizing signs. Cranial nerves II through XII grossly intact. PSYCH: Appropriate affect. Alert and oriented to person, place and time. SKIN: Well perfused. Good skin turgor. ASSESSMENT: 1. Pneumoperitoneum status post exploratory laparotomy with sigmoid resection for perforated sigmoid diverticulitis, descending colostomy creation with rectal stump, reduction and repair of incarcerated left inguinal hernia, Iwona's procedure for perforated sigmoid diverticulitis, drainage of sigmoid diverticular abscess, drainage of left inguinal canal, abscess, placement of intraabdominal #19 Prince drain along the pelvis and placement of universal incisional PREVENA wound VAC system 2. Acute sigmoid diverticulitis, perforated sigmoid diverticulitis 3. Incarcerated left inguinal hernia 4. Sepsis with mental status changes, new 5. Leukocytosis 6. Atrial fibrillation 7. Chronic Coumadin therapy 8. Hypertensive heart disease 9. History of prostate cancer 10. Status post pelvic radiation for prostate cancer 11. Pelvic diverticular abscess, left lower quadrant 12. Ileus PLAN: -Prescriptions for Augmentin and Diflucan for 1 week have been escribed as recommended per Dr. Bernal -Continue to monitor daily PT/INRs due to elevated INR level -At this time Coumadin will remain on hold due to elevated INR -Patient may require to be started on Lovenox in the outpatient setting if INR becomes subtherapeutic while he is still taking the Diflucan. Diflucan interacts with Coumadin increasing the INR and increasing bleeding risk -Home care has been arranged -Patient is surgically stable for discharge home -Follow up with Dr. Lau on 07/11/2020 Physician Performing Artist note has been reviewed by physician. Signing provider agrees with the documented findings, assessment, and plan of care. Objective - Vital Signs Vital signs: Vital Signs Temp 98.8 F 07/05/20 01:18 Pulse 73 07/05/20 08:23 Resp 16 07/04/20 15:48 BP 124/87 07/05/20 01:18 Pulse Ox 92 L 07/05/20 01:18 Intake & Output 07/04/20 07/05/20 07/05/20 18:59 06:59 18:59 Intake Total 120 140 570 Output Total 300 620 Balance -180 140 -50 Weight 93.5 kg Intake: IV 100 Piperacillin-Tazobactam 3 100 .375 gm In Sodium Chloride 0.9% 100 ml @ 25 mls/hr IVPB Q8HR [facility] Rx# :[id number] Intake, IV Titration 140 120 Amount Piperacillin-Tazobactam 3 100 .375 gm In Sodium Chloride 0.9% 100 ml @ 25 mls/hr IVPB Q8HR [facility] Rx# :[id number] Sodium Chloride 0.9% 1, 40 120 000 ml @ 20 mls/hr IV . Q24H [facility] Rx#:[id number] Oral 120 350 Output: Drainage 20 Abdomen 20 Urine 300 600 Other: Voiding Method Toilet Urinal # Voids 1 2 2 # Bowel Movements 1 2 - Labs CBC & Chem 7: 07/05/20 06:28 07/04/20 07:37 Labs: Abnormal Lab Results - Last 24 Hours (Table) 07/05/20 07/05/20 Range/Units 06:28 06:28 RBC 3.41 L (4.30-5.90) m/uL Hgb 9.8 L (13.0-17.5) gm/dL Hct 29.8 L (39.0-53.0) % Lymphocytes # 0.8 L (1.0-4.8) k/uL PT 35.4 H (9.9-11.9) sec INR 3.47 H (0.90-1.11) Microbiology - Last 24 Hours (Table) 06/28/20 09:20 Blood Culture - Final Blood No Growth after 144 hours <Tosha Lau N - Last Filed: 07/05/20 20:58> Subjective Patient seen and evaluated with above. Patient care plan described and discussed with Dr. Antony, hospitalist. Please see additional recommendations and findings below. Patient is status post exploratory laparotomy including descending colostomy creation for ruptured diverticulitis with presentation of sepsis. Today, his white count is completely normal. Sepsis is resolved. Patient is on chronic anticoagulation for atrial fibrillation. Patient was started on Coumadin with double dose given by pharmacy including cardiology and 07/01 and 07/03. Patient was started on Diflucan oral 07/02. Patient had potentiating drug interaction with moderately elevated INR levels from 1.84-2.82-3.47. Patient has no clinical signs of bleeding. In fact, patient was eager to go home. Antibiotics were reviewed where ciprofloxacin also increase his INR level. He has been on Zosyn IV. I've discussed with hospitalist team for correction of elevated INR level with vitamin K. Antibiotic to be adjusted by infectious disease as stated above from ciprofloxacin to alternative. Separately, recommend avoiding anticoagulants such as Coumadin and Eliquis due to adverse interaction with elevated INR levels. Recommend postop subcutaneous Lovenox to avoid potentiating effects with antibiotics. Care plan thoroughly described with hospitalist, patient and family with agreeable plan for discharge with daily PT/INR. No additional anticoagulation needed as patient's INR is therapeutic. We will bridge with subcutaneous Lovenox during antibiotic treatment. Objective - Vital Signs Vital signs: Vital Signs Temp 98.1 F 07/05/20 15:05 Pulse 89 07/05/20 15:05 Resp 16 07/04/20 15:48 BP 115/81 07/05/20 15:05 Pulse Ox 93 L 07/05/20 15:05 Intake & Output 07/05/20 07/05/20 07/06/20 06:59 18:59 06:59 Intake Total 140 570 Output Total 620 Balance 140 -50 Weight 93.5 kg Intake: IV 100 Piperacillin-Tazobactam 3 100 .375 gm In Sodium Chloride 0.9% 100 ml @ 25 mls/hr IVPB Q8HR [facility] Rx# :[id number] Intake, IV Titration 140 120 Amount Piperacillin-Tazobactam 3 100 .375 gm In Sodium Chloride 0.9% 100 ml @ 25 mls/hr IVPB Q8HR [facility] Rx# :[id number] Sodium Chloride 0.9% 1, 40 120 000 ml @ 20 mls/hr IV . Q24H [facility] Rx#:[id number] Oral 350 Output: Drainage 20 Abdomen 20 Urine 600 Other: Voiding Method Toilet Urinal # Voids 2 2 # Bowel Movements 2 - Labs CBC & Chem 7: 07/05/20 06:28 07/04/20 07:37 Labs: Abnormal Lab Results - Last 24 Hours (Table) 07/05/20 07/05/20 Range/Units 06:28 06:28 RBC 3.41 L (4.30-5.90) m/uL Hgb 9.8 L (13.0-17.5) gm/dL Hct 29.8 L (39.0-53.0) % Lymphocytes # 0.8 L (1.0-4.8) k/uL PT 35.4 H (9.9-11.9) sec INR 3.47 H (0.90-1.11) Assessment and Plan (1) Sigmoid diverticulitis Status: Acute Code(s): K57.32 - DVTRCLI OF LG INT W/O PERFORATION OR ABSCESS W/O BLEEDING SNOMED Code(s): 184166607 (2) Prostate cancer Status: Acute Code(s): C61 - MALIGNANT NEOPLASM OF PROSTATE SNOMED Code(s): 739644001 (3) Atrial fibrillation Status: Acute Code(s): I48.91 - UNSPECIFIED ATRIAL FIBRILLATION SNOMED Code(s): 88967715 (4) Anticoagulated on Coumadin Status: Acute Code(s): Z79.01 - LEADERSHIP INTERN (CURRENT) USE OF ANTICOAGULANTS SNOMED Code(s): 01440035 (5) Pneumoperitoneum Status: Acute Code(s): K66.8 - OTHER SPECIFIED DISORDERS OF PERITONEUM SNOMED Code(s): 89831299
[2020-07-05 15:52] VITALS: BP 115/81; PULSE 89; TEMP 98.1
--- NOTE | 2020-07-05 17:03 | PN ---
PROGRESS NOTE DATE OF SERVICE: 07/05/2020 REASON FOR FOLLOWUP: Secondary peritonitis from perforated diverticulitis. INTERVAL HISTORY: The patient is currently afebrile. The patient is breathing comfortably. The patient denies having any chest pain or shortness of breath or cough. No nausea, no vomiting. No abdominal pain. Did have output in his colostomy bag. PHYSICAL EXAMINATION: His blood pressure is 124/87 with a pulse of 96, temperature 98.8. He is 92% on room air. General description is an elderly male lying in bed in no distress. RESPIRATORY SYSTEM: Unlabored breathing. Clear to auscultation anteriorly. HEART: S1, S2. Regular rate and rhythm. ABDOMEN: Soft. No tenderness. LABS: Hemoglobin 9.8, white count 8.7. INR is 3.47. DIAGNOSTIC IMPRESSION AND PLAN: Patient with secondary peritonitis from perforated sigmoid diverticulitis, status post diverting colostomy. Patient has shown overall clinical improvement. White count has normalized. Antibiotic on discharge Augmentin 875 b.i.d. and oral Diflucan 12 mg daily for a week with plan for monitoring of his INR. Discussed with the nurse practitioner working on discharge. MMODL / IJN: [id number] /
[2020-07-05] MEDS ORDERED: fentaNYL (PF) 50 MCG/ML 2 ML AMP IVP ONE (17:28)
[2020-07-05] MEDS ORDERED: DEXAMETHASONE SOD PHOSPHATE 10 MG/ML 1 ML VIAL IV ONE (17:28)
[2020-07-05] MEDS ORDERED: ONDANSETRON 4 MG/2 ML VIAL IVP ONE (17:28)
--- NOTE | 2020-07-05 21:07 | P.DS ---
Providers Date of admission: 06/22/20 04:16 Expected date of discharge: 07/05/20 Attending physician: Quique Watson Consults: 06/22/20 04:16 Consult Physician Routine Consulting Provider: Tosha Lau Consult Reason/Comments: ticItis Do you want consulting provider notified?: Yes 06/22/20 14:40 Consult Physician Routine Consulting Provider: Av Bernal Consult Reason/Comments: Diverticulitis Do you want consulting provider notified?: Yes 06/24/20 15:58 Consult Physician Routine Consulting Provider: Caitlyn Willis Consult Reason/Comments: Acute renal failure Do you want consulting provider notified?: Yes Consult Physician Urgent Consulting Provider: Zurdo Pantoja Consult Reason/Comments: uncontrolled afib, cardiac clearance Do you want consulting provider notified?: Yes 06/25/20 20:01 Consult Physician Stat Consulting Provider: Judy Rivas Consult Reason/Comments: ICU management Do you want consulting provider notified?: Already Contacted Primary care physician: Maurizio Joel - Discharge Diagnosis(es) (1) Sigmoid diverticulitis Status: Acute (2) Prostate cancer Status: Acute (3) Atrial fibrillation Status: Acute (4) Anticoagulated on Coumadin Status: Acute (5) Pneumoperitoneum Status: Acute (6) Sepsis due to anaerobes Status: Acute (7) Altered mental status Status: Acute (8) Left inguinal hernia Status: Acute Hospital Course: POSTOPERATIVE DIAGNOSES: 1. Pneumoperitoneum 2. Acute sigmoid diverticulitis, perforated sigmoid diverticulitis 3. Incarcerated left inguinal hernia 4. Sepsis with mental status changes, new 5. Leukocytosis 6. Atrial fibrillation 7. Chronic Coumadin therapy 8. Hypertensive heart disease 9. History of prostate cancer 10. Status post pelvic radiation for prostate cancer 11. Pelvic diverticular abscess, left lower quadrant 12. Acute kidney impairment with elevated creatinine 13. Acute tubular necrosis due to sepsis COURSE: The patient is a 80-year-old male with comorbidities including pelvic radiation for prostate cancer, hypertensive heart disease, chronic Coumadin therapy with presenting INR over 4.5, and atrial fibrillation who presented with left lower quadrant abdominal pain including incarcerated left inguinal hernia. Diagnostic studies were consistent with acute sigmoid diverticulitis. He then developed increased abdominal distention including new altered mental status. He had leukocytosis and diagnostic findings consistent with pneumoperitoneum, presentation of sepsis. Cardiac assessment was obtained including reversal of his INR prior. Emergent surgical intervention was described to the patient including and daughter at bedside. Laparotomy with ostomy creation including left inguinal hernia were reviewed. Postoperatively, the patient was observed in intensive care unit. He was placed on TPN including IV antibiotics for presentation of sepsis. He was being followed by critical care team including cardiology. Infectious disease consultation was obtained with the patient's complicated comorbidities. He had been on Zosyn with persistent leukocytosis. Once placed on Diflucan, his white count had normalized. Patient's Coumadin levels were being managed by cardiol ogy including pharmacy. Patient was taught ostomy care including with at bedside. Prior to discharge, antibiotics were adjusted to resolve potentiating effect of Coumadin with ciprofloxacin as well as Diflucan. Patient's INR prior to discharge is less than 4.0. He had no signs of bleeding. Patient was discharged home with home health care services. Please see patient's records for additional detail. Patient was clinically stable for discharge. Procedures: OPERATION: 1. Exploratory laparotomy with sigmoid resection for perforated sigmoid diverticulitis 2. Descending colostomy creation with rectal stump 3. Reduction and repair of incarcerated left inguinal hernia 4. Iwona's procedure for perforated sigmoid diverticulitis 5. Drainage of sigmoid diverticular abscess, 50 mL 6. Drainage of left inguinal canal, abscess, 20 mL 7. Peritoneal lavage over 3 liters normal saline 8. Placement of intraabdominal #19 Prince drain along the pelvis. 9. Placement of universal incisional PREVENA wound VAC system ANESTHESIA: General ESTIMATED BLOOD LOSS: 50 mL. SPECIMENS REMOVED: Sigmoid colon, aerobic and anaerobic culture pelvic abscess COMPLICATIONS: None. FINDINGS: 1. Perforated sigmoid colon at mid aspect, 50 mL gregorio purulence drained 2. Purulence tracking along the left paracolic gutter and lateral abdominal wall also drained 3. Incarcerated fat-containing left inguinal hernia incorporating epiploica sidewall of sigmoid colon with abscess drained from inguinal canal, 20 mL 4. Anterior stomach posterior stomach without perforation 5. Small bowel unremarkable 6. Rectal stump tagged with 3-0 Prolene Patient Condition at Discharge: Stable Plan - Discharge Summary Discharge Rx Participant: No New Discharge Prescriptions: New Amoxicillin/Potassium Clav [Augmentin 875-125 Tablet] 1 tab PO Q12HR 7 Days #14 tab Fluconazole [Diflucan] 200 mg PO DAILY #7 tab Acetaminophen Tab [Tylenol Tab] 650 mg PO Q4H PRN #30 tablet PRN Reason: Pain RX: Metoprolol Tartrate [Lopressor] 50 mg PO TID #90 tab RX: Furosemide [Lasix] 20 mg PO DAILY #30 tab Continue RX: amLODIPine BESYLATE [Norvasc] 10 mg PO DAILY RX: Multivitamins, Thera [Multivitamin (formulary)] 1 tab PO DAILY RX: traZODone HCL 50 mg PO HS Discontinued RX: Warfarin [Coumadin] 5 mg PO TUSA@1999 Warfarin [Coumadin] 2.5 mg PO SUMOWETHFR@1999 Discharge Medication List RX: amLODIPine BESYLATE [Norvasc] 10 mg PO DAILY 02/21/14 [History] RX: Multivitamins, Thera [Multivitamin (formulary)] 1 tab PO DAILY 04/12/18 [History] RX: traZODone HCL 50 mg PO HS 06/22/20 [History] Acetaminophen Tab [Tylenol Tab] 650 mg PO Q4H PRN #30 tablet 07/05/20 [Rx] Amoxicillin/Potassium Clav [Augmentin 875-125 Tablet] 1 tab PO Q12HR 7 Days #14 tab 07/05/20 [Rx] Fluconazole [Diflucan] 200 mg PO DAILY #7 tab 07/05/20 [Rx] RX: Furosemide [Lasix] 20 mg PO DAILY #30 tab 07/05/20 [Rx] RX: Metoprolol Tartrate [Lopressor] 50 mg PO TID #90 tab 07/05/20 [Rx] Follow up Appointment(s)/Referral(s): [facility], [NON-STAFF] - 07/06/20 (Home care will call to make appointment and plan to come to your home tomorrow.) Maurizio Joel DO [Primary Care Provider] - 07/11/20 2:20 pm (Office will call with opening. ) Tosha Lau MD [STAFF PHYSICIAN] - 07/11/20 8:30 am (Please call to confirm time of her appointment, otherwise go to the appointment at 8:30 in the morning) Ambulatory/Diagnostic Orders: Prothrombin Time INR [LAB.AMB] Time Frame: 1 Week, Location: None Selected Patient Instructions/Handouts: Diverticulitis (GEN), Colostomy Care (GEN), David-Savage Drain Care (DC) Activity/Diet/Wound Care/Special Instructions: Colostomy Care Instructions: Last Pouching System change: 07.03.2020 Pt transition with the following colostomy care supplies: [facility] flange moldable #[id number] (3) [facility] pouching system with filter #[id number] No sting prep pads (10) Ostomy Powder Change 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 No lifting over 4 pounds in 4 weeks unti Jul 25. May shower. No bath tub soaks for two weeks until Jul 25. Avoid steak, tough meats and seeds such as raspberry seeds. No driving while on narcotics. Use Tylenol scheduled for the next 24-48 hours for best pain relief. Use ice along incisions for the today to prevent swelling. Discharge Disposition: HOME WITH HOME HEALTH SERVICES
--- NOTE | 2020-07-07 10:11 | CDI ---
Documentation Clarification Form Date: 07/07/20 From: Senia Burnett Phone: If you have a question about this query, please contact Hina Cast Fruit Sorter at [phone] between 8am and 5pm. Admit Date: 06/22/20 Discharge Date:07/05/20 Patient Name: Christofer Hampton Visit Number: [id number] ATTENTION: The Clinical Documentation Specialists (CDI) and [facility] Coding Staff appreciate your assistance in clarifying documentation. Please respond to the clarification below the line at the bottom and electronically sign. The CDI & [facility] Coding staff will review the response and follow-up if needed. Please note: Queries are made part of the Legal Health Record. If you have any questions, please contact the author of this message via ITS. Dear Dr. Watson Altered Mental Status was documented in the discharge summary and Dr. Lau's 06/23 and 06/25 progress notes. Sepsis with mental status changes is documented in Dr. Lau's procedure note and 06/26 - 07/05 progress notes. History/Risk Factors: Sepsis, sigmoid diverticulitis with perforation, abscess and peritonitis, ileus, atrial fib, Coumadin toxicity Clinical Indicators: Confusion Labs: WBC 14.8, INR 5.05, Creatinine 1.6, Treatment: IV Zosyn, IV Flagyl, In your professional opinion, please clarify the etiology of the Altered Mental Status, if known. Delirium (specify cause): Dementia (if know, specify Type and if with/without Behavioral Disturbance) Encephalopathy (specify Type and Underlying Medical Illness) Other condition (please specify) Unable to determine Acute metabolic encephalopathy from infection with delirium MTDD
== END 2020-07-05 17:29 | disposition home health service (06) | DRG 853 ==
LOC: EC 02:25 → 4SSUR 04:16 → 2SICU 06-25 17:51 → 3SCARD 06-27 12:24 → 2SICU 06-28 09:06 → 4SSUR 07-02 01:48
PROVIDERS: ADMIT Hospitalist; ATTEND Hospitalist
PROC: 0D1M0Z4 Bypass Descending Colon to Cutaneous, Open Approach (ICD-10-PCS; principal; 2020-06-25 16:00)
PROC: 0DTN0ZZ Resection of Sigmoid Colon, Open Approach (ICD-10-PCS; principal; 2020-06-25 16:00)
PROC: 0YQ60ZZ Repair Left Inguinal Region, Open Approach (ICD-10-PCS; principal; 2020-06-25 16:00)
PROC: 02HV33Z Insertion of Infusion Device into Superior Vena Cava, Percutaneous Approach (ICD-10-PCS; 2020-06-26)
PROC: 3E0436Z Introduction of Nutritional Substance into Central Vein, Percutaneous Approach (ICD-10-PCS; 2020-06-26)
PROC: 5A09357 Assistance with Respiratory Ventilation, Less than 24 Consecutive Hours, Continuous Positive Airway Pressure (ICD-10-PCS; 2020-06-28)
PROC: 0D9670Z Drainage of Stomach with Drainage Device, Via Natural or Artificial Opening (ICD-10-PCS; 2020-06-28)
DX: A41.4 Sepsis due to anaerobes (principal); J96.01 Acute respiratory failure with hypoxia; N17.0 Acute kidney failure with tubular necrosis; K65.9 Peritonitis, unspecified; G93.41 Metabolic encephalopathy; K57.20 Diverticulitis of large intestine with perforation and abscess without bleeding; I48.11 Longstanding persistent atrial fibrillation; R65.20 Severe sepsis without septic shock; J98.11 Atelectasis; K56.7 Ileus, unspecified; K40.30 Unilateral inguinal hernia, with obstruction, without gangrene, not specified as recurrent; E83.39 Other disorders of phosphorus metabolism; E88.09 Other disorders of plasma-protein metabolism, not elsewhere classified; J98.6 Disorders of diaphragm; I11.9 Hypertensive heart disease without heart failure; I95.9 Hypotension, unspecified; T45.515A Adverse effect of anticoagulants, initial encounter; E87.6 Hypokalemia; E87.70 Fluid overload, unspecified; M19.90 Unspecified osteoarthritis, unspecified site; T50.2X5A Adverse effect of carbonic-anhydrase inhibitors, benzothiadiazides and other diuretics, initial encounter; G89.29 Other chronic pain; M54.9 Dorsalgia, unspecified; R79.1 Abnormal coagulation profile; R11.11 Vomiting without nausea; N50.89 Other specified disorders of the male genital organs; R40.2362 Coma scale, best motor response, obeys commands, at arrival to emergency department; R40.2142 Coma scale, eyes open, spontaneous, at arrival to emergency department; R40.2252 Coma scale, best verbal response, oriented, at arrival to emergency department; R40.2364 Coma scale, best motor response, obeys commands, 24 hours or more after hospital admission; R40.2144 Coma scale, eyes open, spontaneous, 24 hours or more after hospital admission; R40.2244 Coma scale, best verbal response, confused conversation, 24 hours or more after hospital admission; Z79.899 Other long term (current) drug therapy; Z79.01 Long term (current) use of anticoagulants; Z85.46 Personal history of malignant neoplasm of prostate; Z96.652 Presence of left artificial knee joint; Z92.3 Personal history of irradiation; Z90.79 Acquired absence of other genital organ(s); Z87.19 Personal history of other diseases of the digestive system; Z88.0 Allergy status to penicillin; Z88.2 Allergy status to sulfonamides; Z98.890 Other specified postprocedural states; Z87.39 Personal history of other diseases of the musculoskeletal system and connective tissue; Z80.9 Family history of malignant neoplasm, unspecified
CPT/HCPCS: 36415; 36573; 36600; 71045; 74018; 74022; 74177; 80048; 80053; 81001; 82150; 82330; 82533; 82728; 82805; 83036; 83540; 83550; 83605; 83690; 83735; 84100; 84132; 84478; 84484; 85025; 85027; 85610; 85730; 86140; 86850; 86900; 86901; 87040; 87070; 87075; 87205; 88307; 93005; 93306; 94640; 96361; 96365; 96375; 96376; 99285

== ENCOUNTER 2020-11-09 08:07 | Inpatient (IN) | payer MEDICARE, BC ==
[2020-11-06 14:40] VITALS: BMI 22.9
[~2020-11-09 08:07] MED LIST: LIDOCAINE 1% (10MG/ML) FOR IV START INTRADERMA PRN
[2020-11-09] MEDS ORDERED: NA PHOS,M-B/NA PHOS,DI-BA 133 ML ENEMA RECTAL STA (08:28)
--- NOTE | 2020-11-09 08:28 | P.GSHP ---
History of Present Illness H&P Date: 11/09/20 CHIEF COMPLAINT: Perforated diverticulitis. HISTORY OF PRESENT ILLNESS: Christofer Hampton is an 80-year-old male who is status post perforated diverticulitis over three to four months ago. He presents today as he now has a new problem with peristomal hernia. He reports preexisting chronic constipation. He has not had a recent colonoscopy. 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 Now he seeks surgical intervention for his hernia repair and possible reversal. PAST MEDICAL HISTORY: Please see list. PAST SURGICAL HISTORY: Please see list. MEDICATIONS: Please see list. ALLERGIES: Please see list. SOCIAL HISTORY: No illicit drug use FAMILY HISTORY: No reports of Crohn disease or ulcerative colitis. REVIEW OF ORGAN SYSTEMS: CONSTITUTIONAL: No fevers or chills. No recent weight loss. EYES: Denies any trouble with vision. No glasses. HEENT: No difficulties with hearing. No nosebleeds. No difficulty swallowing. RESPIRATORY: Denies pneumonia. Has COPD. CARDIOVASCULAR: Past chest pain, palpitations, or recent heart attacks. Has atrial fibrillation. Has hypertension. GASTROINTESTINAL: Denies fatty food intolerance. Denies change in bowel habits and gas bloat. GENITOURINARY: Denies any blood in urine or increased urinary frequency. NEUROLOGICAL: Denies any numbness or tingling along the distal extremities. No seizure disorders or headaches. MUSCULOSKELETAL: Denies any back pain, stiffness or joint arthritis. SKIN: No current skin cancer. No rash. PSYCHIATRIC: Denies current depression or suicidal thoughts. ENDOCRINE: Denies current thyroid disorders. Denies any blood sugar glucose intolerance. HEME/LYMPHATIC: Denies any lumps and bumps around the neck. No recent deep venous thrombosis. On blood thinner. ALLERGY/IMMUNOLOGY: No immunoglobulin therapy. No immune deficiencies. BREAST: Denies current breast lumps, pain or nipple discharge. PHYSICAL EXAM: VITAL SIGNS: Reviewed Patient is an 80-year-old male. CONSTITUTIONAL: Well developed and in no acute distress. EYES: Conjuctivae without sclera icterus. Pupils are equally round and reactive to light. Extraocular movements grossly intact. HEAD, EARS, NOSE, THROAT: Moist buccal mucosa. Head is atraumatic, normocephalic. Hears conversational speech. No nasal drainage. NECK: Supple. No JV distention. No thyroidomegaly. RESPIRATORY: Non-labored respirations and equal bilateral excursions. No gross wheezes. CARDIOVASCULAR: Irregular rate and rhythm. Extremities without moderate edema. Palpable 2+ radial pulses. Abdomen: Peristomal hernia. Semi solid stool with flatus in colostomy bag LYMPH: No neck lymphadenopathy. MUSCULOSKELETAL: Nail and fingers with good capillary refill. SKIN: Warm and well perfused with good skin turgor. NEUROLOGIC: Cranial nerves II through XII grossly intact. Sensation upper and extremities intact. No focal or lateralizing signs. PSYCH: Appropriate affect. Alert and oriented to person, place and time. Displays appropriate insight. ASSESSMENT: 1. History of perforated diverticulitis 2. New parastomal hernia. 3. Colostomy status 4. Atrial fibrillation, chronic 5. Chronic anticoagulation PLAN: 1. Benefits and risks of surgical robotic sigmoid resection was reviewed in detail. Robotic-assisted approach was also described. 2. Enhanced colon recovery program. 3. DVT prophylaxis. 4. Antibiotic prophylaxis. 5. Inpatient hospitalization greater than 2 nights 6. The patient is at elevated risk for perioperative complications. Robotic colostomy reversal with possibility of open technique was described in detail. 7. He will need a colonoscopy to assess the rectal stump length including any further revisions needed of the rectal stump, which was reviewed. Past Medical History Past Medical History: Atrial Fibrillation, Cancer, Hypertension, Osteoarthritis (OA), Prostate Disorder Additional Past Medical History / Comment(s): diverticulitis, prostate cancer History of Any Multi-Drug Resistant Organisms: None Reported Past Surgical History: Back Surgery, Bowel Resection, Joint Replacement, Prostate Surgery, Tonsillectomy Additional Past Surgical History / Comment(s): left TOTAL KNEE; MULT arthroscopy RT KNEE; ROHITH ROTATOR CUFF SURG, CYST REMOVED; three back surgeries(laminectomy x 2,fusion) bowel resection with colostomy 06/2020 Past Anesthesia/Blood Transfusion Reactions: No Reported Reaction Smoking Status: Never smoker - Past Family History Mother Family Medical History: Cancer Additional Family Medical History / Comment(s): . Father Family Medical History: Cancer Medications and Allergies Home Medications Medication Instructions Recorded Confirmed Type amLODIPine BESYLATE [Norvasc] 10 mg PO DAILY 02/21/14 11/07/20 History Multivitamins, Thera [Multivitamin 1 tab PO DAILY 04/12/18 11/07/20 History (formulary)] traZODone HCL 50 mg PO HS 06/22/20 11/07/20 History Warfarin [Coumadin] 2.5 mg PO SUMOSA 11/06/20 11/07/20 History Warfarin [Coumadin] 5 mg PO TUWETHFR 11/06/20 11/07/20 History Allergies Allergy/AdvReac Type Severity Reaction Status Date / Time No Known Allergies Allergy Verified 11/06/20 14:26
[2020-11-09] MEDS ORDERED: Antibiotics per Pharmacy 1 EACH MISC MISCELLANE PRN (08:55)
[2020-11-09] MEDS ORDERED: POLYETHYLENE GLYCOL LYTES SOLN 4,000 ML SOLN.RECON PO ONE (08:55)
[2020-11-09] MEDS: LACTATED RINGERS 1,000 ML IV SCH (09:08)
[2020-11-09 09:36] LABS: Prothrombin Time 10.5 sec (9.0-12.0)
[2020-11-09 09:41] LABS: Calcium 9.6 mg/dL (8.4-10.2); Potassium 3.5 mmol/L (3.5-5.1); Total Bilirubin 0.9 mg/dL (0.2-1.3); Total Protein 7.3 g/dL (6.3-8.2)
[2020-11-09 09:57] LABS: Basophils % (A) 0 %; Eosinophils # (A) 0.1 k/uL (0-0.7); Eosinophils % (A) 1 %; HCT 43.7 % (39.0-53.0); HGB 14.1 gm/dL (13.0-17.5); Lymphocytes # (A) 0.7 k/uL (1.0-4.8); Lymphocytes % (A) 6 %; MCH 28.1 pg (25.0-35.0); MCHC 32.2 g/dL (31.0-37.0); MCV 87.3 fL (80.0-100.0); Mean Platelet Volume 8.1; Monocytes # (A) 0.6 k/uL (0-1.0); Monocytes % (A) 6 %; Neutrophils # (A) 9.4 k/uL (1.3-7.7); Neutrophils % (A) 85 %; Platelet Count 225 k/uL (150-450); RBC 5.01 m/uL (4.30-5.90); RDW 14.7 % (11.5-15.5); WBC 11.1 k/uL (3.8-10.6)
[2020-11-09] MEDS ORDERED: PROPOFOL 10 MG/ML 20 ML VIAL IV ONE (09:57)
[2020-11-09 10:29] LABS: Poikilocytosis (M) Present
--- NOTE | 2020-11-09 10:36 | P.PCN ---
Date of Procedure: 11/09/20 Description of Procedure: PREOPERATIVE DIAGNOSIS: History of perforated diverticulitis, sigmoid colon Descending colostomy status Chronic anticoagulant use Chronic atrial fibrillation POSTOPERATIVE DIAGNOSIS: Sigmoid diverticulosis History of perforated diverticulitis, sigmoid colon Descending colostomy status Chronic anticoagulant use Chronic atrial fibrillation Tubular adenoma mid transverse colon OPERATION: Colonoscopy via stoma to the cecum, ileocecal valve and appendiceal orifice. Colonoscopy with snare polypectomy via stoma Flexible sigmoidoscopy and colonoscope SURGEON: Tosha Lau MD. ANESTHESIA: MAC. INDICATIONS: The patient is a 80-year-old male who presents with perforated diverticulitis subsequent ostomy creation. He presents for colonoscopy for evaluation of malignancy prior to reversal. Benefits and risks were described and informed consent was obtained. DESCRIPTION OF PROCEDURE: The patient had undergone Suprep pills. He was brought into the operating room and he was laid supine. After adequate intravenous sedation, the stoma appliance was removed. An Olympus colonoscope was advanced through the descending colostomy to the appendiceal orifice. The prep was excellent with clear visualization of the mucosal folds. The scope was removed with visualization of each mucosal fold. Severe scattered diverticulosis was encountered. Tubular adenoma was removed from the mid transverse colon. No evidence of focal colitis was found. The colon was desufflated. His stoma appliance was applied. The patient was transitioned in the left lateral decubitus position where along the previous anus, no palpable tumors were identified. The rectum was examined with 2% lidocaine jelly. No external hemorrhoids were encountered. The rectal tone was within normal limits. No lesions were palpated in the rectal vault. An Olympus colonoscope was advanced to the rectal stump. Large stool was found within the rectum. Severe diverticulosis was identified. The scope was passed 20 cm from the anal verge. Additional stump was found without inflammation. The scope was removed and grade 1 internal hemorrhoids without active bleeding or inflammation. The colon was desufflated. The patient had tolerated the procedure well. Withdrawal time was over 6 minutes. FINDINGS: Aronchick preparation quality scale 1 (1-5) Internal hemorrhoids, grade 1 No external prolapsed hemorrhoids. No arteriovenous malformations. Transverse colon adenoma, 4 mm resected using hot snare polypectomy No focal colitis. Severe scattered diverticulosis RECOMMENDATIONS: Lower endoscopy in 5 years, 2025
[2020-11-09] MEDS ORDERED: SODIUM CHLORIDE 0.9% 1,000 ML IV ONE (11:36)
[2020-11-09] MEDS ORDERED: NALOXONE 0.4 MG/ML 1 ML VIAL IV PRN (11:38)
[2020-11-09] MEDS ORDERED: METOCLOPRAMIDE 5 MG/ML 2 ML VIAL IVP PRN (11:38)
[2020-11-09] MEDS: NEOMYCIN 500 MG TAB PO SCH ×3 (13:50→23:35)
[2020-11-09] MEDS: metroNIDAZOLE 500 MG TAB PO SCH ×3 (13:50→23:27)
[2020-11-09] MEDS: PIPERACILLIN-TAZOBACTAM 3.375 GM in SODIUM CHLORIDE 0.9% 100 ML IVPB SCH ×2 (13:51→20:48)
[2020-11-09] MEDS: SODIUM CHLORIDE 0.9% 1,000 ML IV SCH (13:51)
[2020-11-09] MEDS: HEPARIN SODIUM,PORCINE 5,000 UNIT/ML 1 ML VIAL SQ SCH (20:48)
[2020-11-09] MEDS ORDERED: TEMAZEPAM 15 MG CAP PO ONE (21:00)
[2020-11-10] MEDS: ONDANSETRON 4 MG/2 ML VIAL IVP PRN ×2 (01:53→12:08)
[2020-11-10] MEDS: SODIUM CHLORIDE 0.9% 1,000 ML IV SCH (02:33)
[2020-11-10] MEDS: PIPERACILLIN-TAZOBACTAM 3.375 GM in SODIUM CHLORIDE 0.9% 100 ML IVPB SCH ×3 (03:51→21:51)
[2020-11-10] MEDS ORDERED: metroNIDAZOLE-NS PMX 500 MG in SALINE 1 100ML.BAG IVPB PRN (05:00)
[2020-11-10] MEDS ORDERED: ACETAMINOPHEN TAB 500 MG TAB PO PRN (07:00)
[2020-11-10] MEDS ORDERED: ALVIMOPAN 12 MG CAPSULE PO PRN (07:00)
[2020-11-10] MEDS ORDERED: HEPARIN SODIUM,PORCINE 5,000 UNIT/ML 1 ML VIAL SQ PRN (07:00)
[2020-11-10] MEDS ORDERED: MELOXICAM 7.5 MG TAB PO PRN (07:00)
[2020-11-10] MEDS: LACTATED RINGERS 1,000 ML IV SCH (07:19)
[2020-11-10] MEDS: amLODIPine 10 MG TAB PO SCH (08:00)
[2020-11-10] MEDS: PANTOPRAZOLE 40 MG/10 ML VIAL IV SCH (08:00)
[2020-11-10] MEDS: TAMSULOSIN 0.4 MG CAP.ER.24H PO SCH (08:00)
[2020-11-10] MEDS: HEPARIN SODIUM,PORCINE 5,000 UNIT/ML 1 ML VIAL SQ SCH ×3 (08:01→21:48)
[2020-11-10 10:08] LABS: Basophils # (A) 0.03 X 10*3/uL (0.00-0.10); Basophils % (A) 0.5 %; Eosinophils # (A) 0.08 X 10*3/uL (0.04-0.35); Eosinophils % (A) 1.2 %; HCT 36.1 % (39.6-50.0); HGB 11.5 g/dL (13.0-17.0); Lymphocytes % (A) 10.7 %; MCH 28.1 pg (27.0-32.0); MCHC 31.9 g/dL (32.0-37.0); MCV 88.3 fL (80.0-97.0); Mean Platelet Volume 10.7 fL (9.5-12.2); Monocytes # (A) 0.71 X 10*3/uL (0.20-1.00); Monocytes % (A) 10.9 %; Neutrophils # (A) 4.99 X 10*3/uL (1.80-7.70); Neutrophils % (A) 76.5 %; Platelet Count 189 X 10*3/uL (140-440); RBC 4.09 X 10*6/uL (4.40-5.60); RDW 14.6 % (11.5-14.5); WBC 6.52 X 10*3/uL (4.50-10.00)
[2020-11-10 10:56] LABS: African American GFR (CKD) 72.1 (60.0-200.0); Anion Gap 8.5 mmol/L (4.00-12.00); BUN/Creat Ratio 18.18 Ratio (12.00-20.00); Calcium 8.1 mg/dL (8.7-10.3); Carbon Dioxide 24.5 mmol/L (21.6-31.8); Magnesium 1.8 mg/dL (1.5-2.4); Non-African American GFR(CKD) 62.2 (60.0-200.0); Phosphorus 3.2 mg/dL (2.4-5.1); Potassium 3.2 mmol/L (3.5-5.5)
[2020-11-10] MEDS ORDERED: IV FLUID CONTINUATION 600 ML IV ONE (11:39)
[2020-11-10] MEDS ORDERED: DEXAMETHASONE SOD PHOSPHATE 4 MG/ML 1 ML VIAL IV ONE (12:07)
[2020-11-10] MEDS ORDERED: fentaNYL (PF) 50 MCG/ML 2 ML AMP IV ONE (12:24)
[2020-11-10] MEDS ORDERED: MIDAZOLAM 2 MG/2 ML VIAL IV ONE (12:24)
[2020-11-10] MEDS ORDERED: ROPIVACAINE 5 MG/ML 30 ML VIAL ONE (12:55)
[2020-11-10] MEDS ORDERED: fentaNYL (PF) 50 MCG/ML 2 ML AMP ONE (12:55)
[2020-11-10] MEDS ORDERED: HYDROmorphone (PF) 1 MG/ML ONE (12:55)
[2020-11-10] MEDS ORDERED: GLYCOPYRROLATE 0.2 MG/ML 2 ML VIAL ONE (12:55)
[2020-11-10] MEDS ORDERED: NEOSTIGMINE 1 MG/ML 10 ML VIAL ONE (12:55)
[2020-11-10] MEDS ORDERED: ONDANSETRON 4 MG/2 ML VIAL ONE (12:55)
[2020-11-10] MEDS ORDERED: PROPOFOL 10 MG/ML 20 ML VIAL IV ONE (12:55)
[2020-11-10] MEDS ORDERED: LIDOCAINE 1% INJ 10MG/ML (20 ML MDV) ONE (12:55)
[2020-11-10] MEDS ORDERED: SUCCINYLCHOLINE CHLORIDE 100 MG/5 ML SYR IV ONE (12:55)
[2020-11-10] MEDS ORDERED: PHENYLEPHRINE-0.9% NACL SYG 1,000 MCG/10 ML SYRINGE ONE (12:55)
[2020-11-10] MEDS ORDERED: ROCURONIUM 10 MG/ML (10 ML VIAL) IV ONE (12:55)
[2020-11-10] MEDS ORDERED: LIDOCAINE 1%-EPI 1:100,000 20 ML VIAL SQ ONE (13:00)
[2020-11-10] MEDS ORDERED: LACTATED RINGERS 1,000 ML IV ONE ×6 (13:50→18:50)
--- NOTE | 2020-11-10 15:35 | P.ANPRN ---
Procedure Note - Anesthesia - Nerve Block Performed Bilateral Transversus Abdominis Time Out Performed: Yes (12:24) Date of Procedure: 11/10/20 Procedure Start Time: 12:24 Procedure Stop Time: 12:38 Location of Patient: PreOp Indication: Acute Post-Operative Pain, Requested by Surgeon (Dr Gilman) Sedation Type: Sedate with meaningful contact maintained Preparation: Sterile Prep Position: Supine Catheter: None Needle Types: Pajunk Needle Gauge: 21 Ultrasound used to visualize needle placement: Yes Ultrasound used to observe medication spread: Yes Injectate: 0.5% Ropivacaine (see comment for volume) (15cc each side. Decadron 2mg each side) Blood Aspirated: No Pain Paresthesia on Injection Noted: No Resistance on Injection: Normal Image Stored and Saved: Yes Events: Uneventful and Well Tolerated
[2020-11-10] MEDS ORDERED: BENZOCAINE/MENTHOL LOZENG 1 EACH LOZENGE MUCOUS MEM PRN (20:25)
[2020-11-10] MEDS ORDERED: SODIUM CHLORIDE 0.9% 1,000 ML IV ONE (20:30)
[2020-11-10] MEDS: ACETAMINOPHEN IV (For NPO) 1,000 MG in EMPTY BAG 1 BAG IVPB SCH (20:39)
--- NOTE | 2020-11-10 21:01 | P.OP ---
Date of Procedure: 11/10/20 Description of Procedure: SURGEON: JUSTIN MULLIGAN MD PREOPERATIVE DIAGNOSES: 1. Perforated sigmoid diverticulitis with colostomy 2. Descending colostomy status 3. Chronic nature fibrillation 4. Iron deficiency anemia, present on admission 5. Acute and chronic renal insufficiency due to NSAIDs and dehydration POSTOPERATIVE DIAGNOSES: 1. Perforated sigmoid diverticulitis with colostomy 2. Descending colostomy status 3. Chronic nature fibrillation 4. Iron deficiency anemia, present on admission 5. Acute and chronic renal insufficiency due to NSAIDs and dehydration 6. Severe diffuse peritoneal and omental adhesions 7. Rectal constipation OPERATION: 1. Robotic-assisted daVinci Xi laparoscopic lysis of adhesions over 3 hours 2. Robotic-assisted daVinci Xi laparoscopic colectomy with sigmoid resection 3. Robotic-assisted daVinci Xi laparoscopic repair of parastomal hernia, left lower quadrant using 11.[address] mesh 4. Robotic-assisted daVinci Xi laparoscopic converted to open closure of colostomy reversal with low anterior resection using 29 mm ILS 5. Open mobilization of splenic flexure 6. Open repair of epigastric midline incisional hernia 10 x 5 cm 7. Rectal lavage, normal saline 1 L 8. Intraoperative flexible sigmoidoscopy using colonoscopy 9. Placement of round #19 drain pelvis, right pelvis and left upper quadrant 10. Application of incisional wound VAC system 13 cm, PREVENA ostomy site, left lower quadrant Anesthesia: GETA, regional, local Estimated Blood Loss (ml): 200 Pathology: other (rectum, sigmoid colon) Condition: stable Disposition: floor COMPLICATIONS: None. Operative Findings: 1. Diffuse severe peritoneal adhesions involving the entire small bowel including abdominal wall requiring over 3+ hours lysing adhesions laparoscopically and open 2. Anastomosis with EEA stapler 29 mm 3. No tension or torsion along the anastomosis 4. Doughnuts intact both sides and viable 5. Moderate stool found in the rectum evacuated with lavage 6. Control of bleeding along the inferior pole splenic surface following mobilization of splenic flexure using Fibrillar and SNOW INDICATIONS: The patient is a 80-year-old male who presents with ruptured sigmoid diverticulitis and colostomy. He presents for reversal of his colostomy. He is deemed high risk due to chronic atrial fibrillation including chronic anticoagulation. Benefits and risks of surgical intervention was described including infection, injury to the ureter, colostomy creation, possibility for additional surgery was discussed at length. Informed consent was obtained. All questions of the patient and family were answered. DESCRIPTION: Earlier the patient had undergone a bowel prep using the enhanced colon recovery program including abdominal wall block per anesthesia. The patient was transferred to the operating room and placed supine. After general induction, the abdomen was prepped and draped in standard sterile fashion. Ioban was placed along the abdomen to minimize any contamination of skin floor. A Granado catheter was placed. After a timeout protocol was performed, attention was then brought to the left upper quadrant whereby a 0 degree 5 mm laparoscopic trocar entry was performed. The abdominal cavity was entered and insufflated to 15 mmHg pressure, which was tolerated well. Diagnostic laparoscopy confirmed moderate peritoneal adhesions throughout the abdomen. Next a robotic 12-mm trocar was placed along the right lateral abdominal wall. Four trocars were placed along the right lateral abdominal wall. Ports were placed 8 to 10 cm apart from each other including 15-20 cm away from the target anatomy of the left pelvis. The robot was docked along the right lateral abdomen. The patient was positioned in steep Trendelenburg position. Using atraumatic graspers and vessel sealer, the robotic system was docked and primed as described. Instruments were interchanged by the nursing assistants teacher including scissors, needle fuel truck driver, robotic stapler and vessel sealer. The stapler 12-mm port was arranged along the right upper lateral abdominal wall. Severe peritoneal adhesions were identified of omentum including small bowel to the abdominal wall. Over 3 hours extensive lysis of adhesions using sharp dissection of a scissors including vessel sealer was used to free peritoneal adhesions. No evidence of incisional hernias were identified. After addressing adhesions, attention was brought to the pelvis A previous Prolene suture was identified of the rectal stump. The small bowel was densely adherent to the left pelvis. The small bowel including the rectum was freed after additional dissection. I went to the foot of the bed to inspect the rectum. Digital inspection confirmed presence of stool. A rectal lavage using normal saline over 1000 mL was performed to evacuate stool. A colonoscope was entered along the rectum confirming 20 cm length of the remnant. A sizer was used where a 29 mm anvil was selected. I went back to the console for resection of the devitalized rectum of the proximal portion due to severe inflammation. The proximal rectum was resected using 60 mm black staple loads. The staple line was hemostatic after cautery. Attention was brought to the descending colostomy where the descending colon was mobilized along the white line of Toldt. Additional adhesions at the colostomy site was divided using vessel sealer. I scrubbed into the case for placement of the anvil. The robotic arms were undo cked. A 29-mm anvil was positioned into the descending colostomy after placing a suture along the anvil grit blaster. I went back to the console where the sigmoid colon was resected at the abdominal wall for partial colectomy. The shaft of the anvil was exited via the staple line and the anvil grit blaster was removed. I went to the foot of the bed to place the Ethicon powered 29 mm ILS stapler via the rectum. The anvil and descending colostomy was short with moderate tension. Additional mobilization along the left colon was performed however without adequate length. The left colic artery was mobilized and divided after large plastic clip was applied followed by vessel sealer. Despite this maneuver, additional length was needed. With this finding including large new incisional hernia at the epigastrium, open surgery was proposed. Prior to opening, the fascia of the prior parastomal hernia the left lower quadrant was oversewn using#1 VLOC nonabsorbable. The abdomen was opened along the midline after all instruments were accounted. Using a #10 blade, the abdomen was entered. Attention was brought to the anvil and descending colon. Manual manipulation demonstrated moderate tension along the descending colostomy. At this point, mobilization of splenic flexure performed using Enseal including Bovie cautery. Dense adhesions of the splenic flexure including omentum was found along the inferior pole of the spleen. Superficial capsular serosal tear was identified and controlled using hemostatic agents. Reinspection of the descending colon demonstrated adequate length with out tension for closure. The anvil and stapler were mated for 1 minute. The doughnuts were intact on both sides and thick. An intraoperative flexible sigmoidoscopy was performed with irrigation fluid along the pelvis place by the nursing assistants teacher. No leak was identified with excellent visualization and hemostasis of the colorectal anastomosis. All needles, and sponges were removed from the abdominal cavity. A round #19 drain was placed right lateral to the anastomosis along the pelvis and exited via the right lateral abdominal wall. A 2-0 nylon stitch was placed. A right upper quadrant drain was placed superiorly at the left upper quadrant splenic flexure. A drain stitch was placed. Some spillage of stool was encountered during the case without free spillage. For complete repair at the left lower quadrant due to parastomal hernia, 11.[address] mesh was oversewn using 2-0 VLOC nonabsorbable. The epigastric midline incisional hernia was oversewn and closed including the abdomen was closed using double-stranded #1 PDS. The skin was cleansed using dilute hydrogen peroxide. Stainless steel skin linh were applied along the midline incision including trocar sites. Attention was brought to the ostomy which was resected from the subcutaneous tissue using Bovie cautery. Hemostasis was checked. The wound was cleansed using dilute hydrogen peroxide. The ostomy site was reapproximated using 0 Vicryl for the deep subcutaneous tissue. Skin linh were applied. A 13-cm incisional wound VAC system, PREVNA was placed along the previous ostomy site at the left lower quadrant. Local anesthetic was infiltrated to all wounds for postop analgesia. All incisions were also cleansed with diluted hydrogen peroxide. Optifoam surgical dressings were placed at the drain site, including midline incision, and trocar sites. Suction bulb were placed along the tubing. The patient had tolerated the procedure well. The patient was extubated successfully. Intraoperative photos were reviewed with the patient's family who were overall pleased with the level of care. The patient was transferred to the postanesthesia care unit in stable condition. COMPLEXITY: Increased complexity of the case due to severe intra-abdominal peritoneal adhesions as well as need for mobilization of splenic flexure. Additional time for lysis of adhesions over 3-4 hours used laparoscopic including open for completion of the case.
--- NOTE | 2020-11-10 22:17 | P.CONS ---
History of Present Illness - Reason for Consult Consult date: 11/10/20 Medical management Requesting physician: Tosha Lau - Chief Complaint Abdominal surgery - History of Present Illness History of presenting complaint: This is a very pleasant 80-year-old patient of Dr. Joel. Chronic stable medical conditions include paroxysmal atrial fibrillation on Coumadin, hypertension, prostate cancer treated by surgery and followed by radiation treatment a year later, back surgery. In June 2020 patient had severe sigmoid Dr. colitis with perforation leading to sigmoid resection with Luke's procedure and colostomy. Patient now presented for reversal of the same. Has undergone ostomy, endoscopy/colonoscopy that was unremarkable. The Patient This Morning. Pending Surgery This Afternoon. Patient Rather Active. No Cardiac or Pulmonary Symptoms. No Chest Pain or Shortness of Breath. Review of systems: GEN.: None EYES: None HEENT: Decreased hearing NECK: None RESPIRATORY: None CARDIOVASCULAR: None GASTROINTESTINAL: Colostomy bag GENITOURINARY: None MUSCULOSKELETAL: Chronic back pain LYMPHATICS: None HEMATOLOGICAL: None PSYCHIATRY: None NEUROLOGICAL: None Past medical history to include: Paroxysmal atrial fibrillation, hypertension, prostate cancer treated with surgery and radiation treatment, back surgery, perforated sigmoid diverticulitis with Luke's procedure and colostomy Social 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 Lives alone. 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 Conjunctiva normal. HEENT: External appearance of nose and ears normal, oral cavity grossly normal. NECK: JVD not raised; masses not palpable. HEART: First and second heart sounds are normal; no edema. LUNGS: Respiratory rate normal; clear to auscultation. ABDOMEN: Soft, no abdominal tenderness, no guarding rigidity, liver spleen not palpable, no masses palpable. Colostomy bag PSYCH: [Alert and oriented x3; mood and affect anxious. NEUROLOGICAL: Cranial nerves grossly intact; no facial asymmetry, power and sensation grossly intact. LYMPHATICS: No lymph nodes palpable in the axilla and neck INVESTIGATIONS, reviewed in the clinical context: White count 6.5 hemoglobin 11.5 platelets 189 potassium 3.2 creatinine 1.1 Assessment: -Pending reversal of colostomy for a prior history of sigmoid diverticulitis with perforation leading to heart postprocedure in June 2020 -Colonic diverticulosis-asymptomatic -Paroxysmal atrial fibrillation chronically on Coumadin-controlled -Coumadin monitoring-has been held for surgery -Prostate cancer with a history of surgery and radiation treatment -Primary osteoarthritis-use analgesics when necessary Plan: Patient is medically stable to proceed with surgery. . mild to-moderate risk for cardiovascular surgery. Has no active symptoms. Does not need any further testing. Home medications to be continued after surgery. Coumadin to be resumed when okay with Dr. Kwok. Care was discussed with the patient. Questions answered. This was conveyed to the nurse this morning, before the surgery Thank you Dr. Kwok Past Medical History Past Medical History: Atrial Fibrillation, Cancer, Hypertension, Osteoarthritis (OA), Prostate Disorder Additional Past Medical History / Comment(s): diverticulitis, prostate cancer History of Any Multi-Drug Resistant Organisms: None Reported Past Surgical History: Back Surgery, Bowel Resection, Joint Replacement, Prostate Surgery, Tonsillectomy Additional Past Surgical History / Comment(s): left TOTAL KNEE; MULT arthroscopy RT KNEE; ROHITH ROTATOR CUFF SURG, CYST REMOVED; three back surgeries(laminectomy x 2,fusion) bowel resection with colostomy 06/2020 Past Anesthesia/Blood Transfusion Reactions: No Reported Reaction Smoking Status: Never smoker - Past Family History Mother Family Medical History: Cancer Additional Family Medical History / Comment(s): . Father Family Medical History: Cancer Medications and Allergies Home Medications Medication Instructions Recorded Confirmed Type amLODIPine BESYLATE [Norvasc] 10 mg PO DAILY 02/21/14 11/07/20 History Multivitamins, Thera [Multivitamin 1 tab PO DAILY 04/12/18 11/07/20 History (formulary)] traZODone HCL 50 mg PO HS 06/22/20 11/07/20 History Warfarin [Coumadin] 2.5 mg PO SUMOSA 11/06/20 11/07/20 History Warfarin [Coumadin] 5 mg PO TUWETHFR 11/06/20 11/07/20 History Allergies Allergy/AdvReac Type Severity Reaction Status Date / Time No Known Allergies Allergy Verified 11/09/20 08:48 Physical Exam Vitals: Vital Signs Temp Pulse Resp BP Pulse Ox 11/10/20 04:20 99.0 F 90 16 137/78 93 L 11/09/20 20:34 98.1 F 76 16 127/78 95 11/09/20 14:23 97.4 F L 84 14 138/86 95 11/09/20 10:44 85 16 110/70 96 11/09/20 10:30 86 16 94/55 96 Intake and Output 11/09/20 11/10/20 11/10/20 22:59 06:59 14:59 Intake Total 1325 Balance 1325 Intake: Intake, IV Titration 1325 Amount Piperacillin-Tazobactam 3 100 .375 gm In Sodium Chloride 0.9% 100 ml @ 25 mls/hr IVPB Q8H [facility] Rx#: [id number] Sodium Chloride 0.9% 1, 225 000 ml @ 75 mls/hr IV . [id number] [facility] Rx#:[id number] Sodium Chloride 0.9% 1, 1000 000 ml @ 999 mls/hr IV . Q1H1M [facility] Rx#:[id number] Other: # Voids 4 # Bowel Movements 0 Results CBC & Chem 7: 11/10/20 07:08 11/10/20 07:08 Labs: Abnormal Lab Results - Last 24 Hours (Table) 11/09/20 11/09/20 Range/Units 09:05 09:05 WBC 11.1 H (3.8-10.6) k/uL Neutrophils # 9.4 H (1.3-7.7) k/uL Lymphocytes # 0.7 L (1.0-4.8) k/uL BUN 29 H (9-20) mg/dL Creatinine 1.43 H (0.66-1.25) mg/dL
[2020-11-11] MEDS: SODIUM CHLORIDE 0.9% 1,000 ML IV SCH (00:01)
[2020-11-11] MEDS: 0.9% NACL WITH KCL 40 MEQ/L 1,000 ML IV SCH ×3 (00:02→20:54)
[2020-11-11] MEDS: ACETAMINOPHEN IV (For NPO) 1,000 MG in EMPTY BAG 1 BAG IVPB SCH ×3 (02:12→17:15)
[2020-11-11] MEDS: PIPERACILLIN-TAZOBACTAM 3.375 GM in SODIUM CHLORIDE 0.9% 100 ML IVPB SCH ×3 (04:30→20:47)
[2020-11-11] MEDS: PANTOPRAZOLE 40 MG/10 ML VIAL IV SCH (07:55)
[2020-11-11] MEDS: HEPARIN SODIUM,PORCINE 5,000 UNIT/ML 1 ML VIAL SQ SCH ×2 (07:55→20:46)
[2020-11-11] MEDS: TAMSULOSIN 0.4 MG CAP.ER.24H PO SCH (07:56)
[2020-11-11] MEDS: amLODIPine 10 MG TAB PO SCH (07:56)
[2020-11-11] MEDS: ALVIMOPAN 12 MG CAPSULE PO SCH ×2 (07:56→20:46)
[2020-11-11] MEDS: SODIUM FERRIC GLUCONAT-SUCROSE 125 MG in SODIUM CHLORIDE 0.9% 100 ML IVPB SCH (09:37)
[2020-11-11] MEDS: HYDROmorphone 1 MG/ML 1 ML SYRINGE IVP PRN ×2 (09:38→20:48)
[2020-11-11 11:47] LABS: Basophils # (A) 0.01 X 10*3/uL (0.00-0.10); Basophils % (A) 0.1 %; Eosinophils # (A) 0 X 10*3/uL (0.04-0.35); Eosinophils % (A) 0 %; HCT 34.8 % (39.6-50.0); Lymphocytes # (A) 0.41 X 10*3/uL (0.90-5.00); Lymphocytes % (A) 3.9 %; MCH 27.9 pg (27.0-32.0); MCHC 31.6 g/dL (32.0-37.0); MCV 88.3 fL (80.0-97.0); Monocytes # (A) 1.07 X 10*3/uL (0.20-1.00); Monocytes % (A) 10.3 %; Neutrophils # (A) 8.86 X 10*3/uL (1.80-7.70); Neutrophils % (A) 85.4 %; Platelet Count 191 X 10*3/uL (140-440); RBC 3.94 X 10*6/uL (4.40-5.60); RDW 14.4 % (11.5-14.5); WBC 10.38 X 10*3/uL (4.50-10.00)
[2020-11-11 11:57] LABS: Ferritin 174.2 ng/mL (22.0-322.0)
[2020-11-11 12:00] LABS: % Iron Saturation 2.79 (15.00-50.00); African American GFR (CKD) 72.1 (60.0-200.0); Anion Gap 8.5 mmol/L (4.00-12.00); BUN/Creat Ratio 19.09 Ratio (12.00-20.00); Carbon Dioxide 23.5 mmol/L (21.6-31.8); Non-African American GFR(CKD) 62.2 (60.0-200.0); Potassium 3.7 mmol/L (3.5-5.5)
[2020-11-11] MEDS: metroNIDAZOLE-NS PMX 500 MG in SALINE 1 100ML.BAG IVPB SCH (13:18)
--- NOTE | 2020-11-11 13:24 | P.PN ---
Subjective Progress Note Date: 11/11/20 CHIEF COMPLAINT: Perforated diverticulitis. HISTORY OF PRESENT ILLNESS: Christofer Hampton is an 80-year-old male status post robotic to open colostomy reversal including incisional hernia repair, peristomal hernia and extensive lysis of adhesions 11/10/2020. Family gave additional history the patient takes chronic NSAIDs due to chronic lower back pain after 2 back surgeries not listed on medical reconciliation. He reports his pain is 9 out of 10. Per discussion with nursing, Tylenol helps however Dilaudid is too strong. He has not gotten out of bed. Granado is in. No passage of flatus. No bowel movements. He is tolerating clears. REVIEW OF ORGAN SYSTEMS: No fevers or chills. No chest pain. No shortness of breath. PHYSICAL EXAM: VITAL SIGNS: Reviewed Patient is an 80-year-old male. CONSTITUTIONAL: Well developed and in no acute distress. EYES: Conjuctivae without sclera icterus. Extraocular movements grossly intact. Wears glasses. HEAD, EARS, NOSE, THROAT: Moist buccal mucosa. Head is atraumatic, normocephalic. Hears conversational speech. No nasal drainage. NECK: Supple. No JV distention. No thyroidomegaly. RESPIRATORY: Non-labored respirations and equal bilateral excursions. No gross wheezes. CARDIOVASCULAR: Irregular rate and rhythm. Abdomen: Incisions intact. DEJON serosanguineous. Dressing of mild serosanguineous shadowing 2 cm superior incision. Abdominal binder present. MUSCULOSKELETAL: Nail and fingers with good capillary refill. SKIN: Warm and well perfused with good skin turgor. NEUROLOGIC: Cranial nerves II through XII grossly intact. Sensation upper and e xtremities intact. No focal or lateralizing signs. PSYCH: Appropriate affect. Alert and oriented to person, place and time. Displays appropriate insight. LABS: White blood cell count improved 11.5-6.5 prior to surgery. Hemoglobin down 14.1-11.1 prior to surgery. Today hemoglobin stable of 0.4. Creatinine down from 1.43-1.1 prior to surgery. Today creatinine 1.1. ASSESSMENT: 1. History of perforated diverticulitis 2. New parastomal hernia. 3. Colostomy status 4. Atrial fibrillation, chronic 5. Chronic anticoagulation 6. Acute kidney injury due to NSAID 7. Iron deficiency anemia PLAN: 1. IV fluid hydration 2. Continue Flomax 3. Anesthesia for pain management with possible assessment of epidural 4. Start iron for iron deficiency anemia 5. May start protein shakes 6. Physical therapy and occupational therapy for conditioning. 7. Up out of bed with care plan described to his nurse. 8. I personally notified and discuss care plan with his over speakerphone with the patient. Objective - Vital Signs Vital signs: Vital Signs Temp 97.7 F 11/11/20 04:35 Pulse 97 11/11/20 04:35 Resp 17 11/11/20 04:35 BP 148/89 11/11/20 04:35 Pulse Ox 94 L 11/11/20 04:35 Intake & Output 11/10/20 11/11/20 11/11/20 18:59 06:59 18:59 Intake Total 4050 900 Output Total 865 Balance 4050 35 Intake: IV 4050 900 0.9% NaCl with KCl 40 Meq 800 /l 1,000 ml @ 100 mls/hr IV .Q10H REPLACED BY [facility] Rx#: [id number] Output: Drainage 90 Right Lower 65 Right Upper Abdomen 25 Urine 575 Estimated Blood Loss 200 Other: Voiding Method Toilet Indwelling Catheter Indwelling Catheter Diaper Incontinent - Labs CBC & Chem 7: 11/11/20 06:49 11/11/20 06:49
[2020-11-11] MEDS ORDERED: HYDROmorphone PCA 10 MG/50 ML BAG IV PRN (18:36)
[2020-11-11] MEDS: traZODone HCL 50 MG TAB PO SCH (20:46)
[2020-11-11] MEDS: GABAPENTIN 300 MG CAP PO SCH (20:55)
--- NOTE | 2020-11-11 23:10 | P.PN ---
Progress Note - Text Progress Note Date: 11/11/20 - Chief Complaint Abdominal surgery - History of Present Illness History of presenting complaint: This is a very pleasant 80-year-old patient of Dr. Joel. Chronic stable medical conditions include paroxysmal atrial fibrillation on Coumadin, hypertension, prostate cancer treated by surgery and followed by radiation treatment a year later, back surgery. In June 2020 patient had severe sigmoid [address] colitis with perforation leading to sigmoid resection with Luke's procedure and colostomy. Patient now presented for reversal of the same. Has undergone ostomy, endoscopy/colonoscopy that was unremarkable. The Patient This Morning. Pending Surgery This Afternoon. Patient Rather Active. No Cardiac or Pulmonary Symptoms. No Chest Pain or Shortness of Breath. November 10: Colostomy reversal Today-having abdominal pain. No nausea vomiting. No fever. Review of systems: Was done for constitutional, cardiovascular, GI, pulmonary. relevant finding as above Active Medications Alvimopan (Alvimopan 12 Mg Capsule) 12 mg PO BID REPLACED BY [facility] Stop: 11/17/20 21:01 Last Admin: 11/11/20 20:46 Dose: 12 mg Documented by: Amlodipine Besylate (Amlodipine 10 Mg Tab) 10 mg PO DAILY REPLACED BY [facility] Last Admin: 11/11/20 07:56 Dose: 10 mg Documented by: Benzocaine/Menthol (Benzocaine/Menthol Lozeng 1 Each Lozenge) 1 each MUCOUS MEM Q1HR PRN PRN Reason: Sore Throat Gabapentin (Gabapentin 300 Mg Cap) 300 mg PO TID REPLACED BY [facility] Last Admin: 11/11/20 20:55 Dose: Not Given Documented by: Heparin Sodium (Porcine) (Heparin Sodium,Porcine 5,000 Unit/Ml 1 Ml Vial) 5,000 unit SQ Q12HR REPLACED BY [facility] Last Admin: 11/11/20 20:46 Dose: 5,000 unit Documented by: Hydromorphone HCl (Hydromorphone 1 Mg/Ml 1 Ml Syringe) 1 mg IVP Q3HR PRN PRN Reason: Severe Pain Last Admin: 11/11/20 20:48 Dose: 1 mg Documented by: Hydromorphone HCl (Hydromorphone [employer] 10 Mg/50 Ml Bag) 10 mg IV PER PROTOCOL PRN; Protocol PRN Reason: Pain Control Piperacillin Sod/Tazobactam (Sod 3.375 gm/ Sodium Chloride) 100 mls @ 25 mls/hr IVPB Q8H REPLACED BY [facility] Last Admin: 11/11/20 20:47 Dose: 25 mls/hr Documented by: Potassium Chloride/Sodium Chloride (Ns-Kcl 40 Meq/L Iv Solution) 1,000 mls @ 100 mls/hr IV .Q10H REPLACED BY [facility] Last Admin: 11/11/20 20:54 Dose: 100 mls/hr Documented by: Ferric Sodium Gluconate 125 mg (/ Sodium Chloride) 110 mls @ 100 mls/hr IVPB DAILY REPLACED BY [facility] Stop: 11/13/20 10:05 Last Admin: 11/11/20 09:37 Dose: 100 mls/hr Documented by: Metronidazole 500 mg/ IV (Solution) 100 mls @ 100 mls/hr IVPB Q8HR REPLACED BY [facility] Last Admin: 11/11/20 13:18 Dose: 100 mls/hr Documented by: Lidocaine HCl (Lidocaine 1% (10mg/Ml) For Iv Start) 0.1 ml INTRADERMA PER PROTOCOL PRN PRN Reason: IV Start Stop: 12/09/20 05:54 Metoclopramide HCl (Metoclopramide 5 Mg/Ml 2 Ml Vial) 10 mg IVP Q6H PRN PRN Reason: Nausea And Vomiting Naloxone HCl (Naloxone 0.4 Mg/Ml 1 Ml Vial) 0.2 mg IV Q2M PRN PRN Reason: Opioid Reversal Ondansetron HCl (Ondansetron 4 Mg/2 Ml Vial) 4 mg IVP Q6HR PRN PRN Reason: Nausea And Vomiting Last Admin: 11/10/20 12:08 Dose: 4 mg Documented by: Pantoprazole Sodium (Pantoprazole 40 Mg/10 Ml Vial) 40 mg IV DAILY REPLACED BY [facility] Last Admin: 11/11/20 07:55 Dose: 40 mg Documented by: Tamsulosin HCl (Tamsulosin 0.4 Mg Cap.Er.24h) 0.4 mg PO PC-BRKFST REPLACED BY [facility] Last Admin: 11/11/20 07:56 Dose: 0.4 mg Documented by: Trazodone HCl (Trazodone Hcl 50 Mg Tab) 50 mg PO HS REPLACED BY [facility] Last Admin: 11/11/20 20:46 Dose: 50 mg Documented by: . Past medical history to include: Paroxysmal atrial fibrillation, hypertension, prostate cancer treated with surgery and radiation treatment, back surgery, perforated sigmoid diverticulitis with Luke's procedure and colostomy Social 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 Conjunctiva normal. HEENT: External appearance of nose and ears normal, oral cavity grossly normal. NECK: JVD not raised; masses not palpable. HEART: First and second heart sounds are normal; no edema. LUNGS: Respiratory rate normal; clear to auscultation. ABDOMEN: Soft, dressing, tenderness, no guarding rigidity, liver spleen not palpable, PSYCH: [Alert and oriented x3; mood and affect anxious. INVESTIGATIONS, reviewed in the clinical context: November 11: White count 10.3 hemoglobin 11 potassium 3.7 creatinine 1.1 White count 6.5 hemoglobin 11.5 platelets 189 potassium 3.2 creatinine 1.1 Assessment: - reversal of colostomy for a prior history of sigmoid diverticulitis with perforation - June 2020 -Colonic diverticulosis-asymptomatic -Paroxysmal atrial fibrillation chronically on Coumadin-controlled -Coumadin monitoring-has been held for surgery -Prostate cancer with a history of surgery and radiation treatment -Primary osteoarthritis-use analgesics when necessary -Chronic kidney disease stage III likely nephrosclerosis -Reactive leukocytosis Plan: Patient is nothing by mouth. Getting IV fluids. Pain control in place. Discussed with patient. Thank you Dr. Kwok
[2020-11-12] MEDS: metroNIDAZOLE-NS PMX 500 MG in SALINE 1 100ML.BAG IVPB SCH ×3 (00:12→16:04)
[2020-11-12] MEDS: 0.9% NACL WITH KCL 40 MEQ/L 1,000 ML IV SCH ×2 (04:12→16:03)
[2020-11-12] MEDS: PIPERACILLIN-TAZOBACTAM 3.375 GM in SODIUM CHLORIDE 0.9% 100 ML IVPB SCH ×3 (04:12→20:19)
[2020-11-12] MEDS: HYDROmorphone 1 MG/ML 1 ML SYRINGE IVP PRN ×2 (07:26→12:33)
[2020-11-12] MEDS: HEPARIN SODIUM,PORCINE 5,000 UNIT/ML 1 ML VIAL SQ SCH ×2 (07:28→20:19)
[2020-11-12] MEDS: PANTOPRAZOLE 40 MG/10 ML VIAL IV SCH (07:28)
[2020-11-12] MEDS: amLODIPine 10 MG TAB PO SCH (07:28)
[2020-11-12] MEDS: TAMSULOSIN 0.4 MG CAP.ER.24H PO SCH (07:28)
[2020-11-12] MEDS: GABAPENTIN 300 MG CAP PO SCH (07:28)
[2020-11-12] MEDS: ALVIMOPAN 12 MG CAPSULE PO SCH ×2 (07:30→20:19)
[2020-11-12] MEDS: SODIUM FERRIC GLUCONAT-SUCROSE 125 MG in SODIUM CHLORIDE 0.9% 100 ML IVPB SCH (09:09)
[2020-11-12 10:34] LABS: Basophils # (A) 0.02 X 10*3/uL (0.00-0.10); Basophils % (A) 0.2 %; Eosinophils # (A) 0.01 X 10*3/uL (0.04-0.35); Eosinophils % (A) 0.1 %; HCT 36.1 % (39.6-50.0); HGB 11.3 g/dL (13.0-17.0); Lymphocytes # (A) 0.58 X 10*3/uL (0.90-5.00); MCH 27.9 pg (27.0-32.0); MCHC 31.3 g/dL (32.0-37.0); MCV 89.1 fL (80.0-97.0); Mean Platelet Volume 11.4 fL (9.5-12.2); Monocytes # (A) 1.04 X 10*3/uL (0.20-1.00); Neutrophils # (A) 9.89 X 10*3/uL (1.80-7.70); Neutrophils % (A) 85.5 %; Platelet Count 189 X 10*3/uL (140-440); RBC 4.05 X 10*6/uL (4.40-5.60); RDW 14.6 % (11.5-14.5); WBC 11.56 X 10*3/uL (4.50-10.00)
[2020-11-12 11:07] LABS: African American GFR (CKD) 72.1 (60.0-200.0); Anion Gap 5.1 mmol/L (4.00-12.00); BUN/Creat Ratio 18.18 Ratio (12.00-20.00); Calcium 7.8 mg/dL (8.7-10.3); Carbon Dioxide 23.9 mmol/L (21.6-31.8); Non-African American GFR(CKD) 62.2 (60.0-200.0); Potassium 3.9 mmol/L (3.5-5.5)
--- NOTE | 2020-11-12 13:11 | P.PN ---
Subjective Progress Note Date: 11/12/20 CHIEF COMPLAINT: Perforated diverticulitis. HISTORY OF PRESENT ILLNESS: Christofer Hampton is an 80-year-old male status post robotic to open colostomy reversal including incisional hernia repair, peristomal hernia and extensive lysis of adhesions 11/10/2020. He reports feeling crazy from dilaudid and new m edication neurontin. His pain is better today than yesterday. He is eager to walk today. I personally spoke to his over the phone regarding his care. He does report passing flatus. No bowel movements. He reports voiding without difficulty. REVIEW OF ORGAN SYSTEMS: No fevers or chills. No chest pain. No shortness of breath. PHYSICAL EXAM: VITAL SIGNS: Reviewed Patient is an 80-year-old male. CONSTITUTIONAL: Well developed and in no acute distress. EYES: Conjuctivae without sclera icterus. Extraocular movements grossly intact. Wears glasses. HEAD, EARS, NOSE, THROAT: Moist buccal mucosa. Head is atraumatic, normocephalic. Hears conversational speech. No nasal drainage. NECK: Supple. No JV distention. No thyroidomegaly. RESPIRATORY: Non-labored respirations and equal bilateral excursions. No gross wheezes. CARDIOVASCULAR: Irregular rate and rhythm. Abdomen: Incisions intact. DEJON more serous today. Dressing of mild serosanguineous shadowing 2 cm superior incision. Abdominal binder present. MUSCULOSKELETAL: Nail and fingers with good capillary refill. SKIN: Warm and well perfused with good skin turgor. NEUROLOGIC: Cranial nerves II through XII grossly intact. Sensation upper and extremities intact. No focal or lateralizing signs. PSYCH: More distant today Alert and oriented to person. LABS: White blood cell count up from 10.38 to 11.56. Hemoglobin up from 11.0 to 11.3 today. Creatinine unchanged from 1.1 prior to surgery. Iron panel low. ASSESSMENT: 1. History of perforated diverticulitis 2. New parastomal hernia. 3. Colostomy status 4. Atrial fibrillation, chronic 5. Chronic anticoagulation 6. Acute kidney injury due to NSAID and dehydration 7. Iron deficiency anemia PLAN: 1. He has been advanced to full liquid diet and tolerating. 2. Iron infusions for symptomatic iron deficiency anemia 3. Continue IV antibiotics for contaminated case. 4. Home health care for DEJON x 2 drain management 5. Discharge pending bowel movement. 6. Coumadin on hold pending first bowel movement without bleeding. 7. NSAIDS held due to acute kidney injury and recent surgery with high risk for bleeding 8. Per patient request, discontinue [employer] ACCOUNT[employer], neurontin. Will continue with oral tylenol only as he can tolerate it. 9. Patient also seen with hospitalist with care plan described. Objective - Vital Signs Vital signs: Vital Signs Temp 98.1 F 11/12/20 12:31 Pulse 105 H 11/12/20 12:31 Resp 18 11/12/20 12:31 BP 140/84 11/12/20 12:31 Pulse Ox 97 11/12/20 12:31 Intake & Output 11/11/20 11/12/20 11/12/20 18:59 06:59 18:59 Output Total 250 965 225 Balance -250 -965 -225 Output: Drainage 250 65 100 Right Lower 180 30 80 Right Upper Abdomen 70 35 20 Urine 900 125 Uretheral ([place]) 900 Other: Voiding Method Indwelling Catheter Indwelling Catheter Urinal - Labs CBC & Chem 7: 11/12/20 05:10 11/12/20 05:10 Labs: Abnormal Lab Results - Last 24 Hours (Table) 11/12/20 11/12/20 Range/Units 05:10 05:10 WBC 11.56 H (4.50-10.00) X 10*3/uL RBC 4.05 L (4.40-5.60) X 10*6/uL Hgb 11.3 L (13.0-17.0) g/dL Hct 36.1 L (39.6-50.0) % MCHC 31.3 L (32.0-37.0) g/dL RDW 14.6 H (11.5-14.5) % Neutrophils # 9.89 H (1.80-7.70) X 10*3/uL Lymphocytes # 0.58 L (0.90-5.00) X 10*3/uL Monocytes # 1.04 H (0.20-1.00) X 10*3/uL Eosinophils # 0.01 L (0.04-0.35) X 10*3/uL Chloride 112 H (96-109) mmol/L Calcium 7.8 L (8.7-10.3) mg/dL Assessment and Plan (1) Iron deficiency anemia Current Visit: Yes Status: Acute Code(s): D50.9 - IRON DEFICIENCY ANEMIA, UNSPECIFIED SNOMED Code(s): 24993612 (2) Colostomy status Current Visit: Yes Status: Acute Code(s): Z93.3 - COLOSTOMY STATUS SNOMED Code(s): 819348275 (3) Perforation of sigmoid colon due to diverticulitis Current Visit: Yes Status: Acute Code(s): K57.20 - DVTRCLI OF LG INT W PER FORATION AND ABSCESS W/O BLEEDING SNOMED Code(s): 0027425122418055 (4) Acute tubular necrosis Current Visit: No Status: Acute Code(s): N17.0 - ACUTE KIDNEY FAILURE WITH TUBULAR NECROSIS SNOMED Code(s): 56641704 (5) Atrial fibrillation Current Visit: No Status: Acute Code(s): I48.91 - UNSPECIFIED ATRIAL FIBRILLATION SNOMED Code(s): 37615607
[2020-11-12] MEDS: traZODone HCL 50 MG TAB PO SCH (20:19)
[2020-11-12] MEDS: ACETAMINOPHEN TAB 325 MG TAB PO PRN (20:44)
[2020-11-12 20:53] VITALS: RESP 16; TEMP 97.6
--- NOTE | 2020-11-12 21:15 | P.PN ---
Progress Note - Text Progress Note Date: 11/12/20 - Chief Complaint Abdominal surgery - History of Present Illness History of presenting complaint: This is a very pleasant 80-year-old patient of Dr. Joel. Chronic stable medical conditions include paroxysmal atrial fibrillation on Coumadin, hypertension, prostate cancer treated by surgery and followed by radiation treatment a year later, back surgery. In June 2020 patient had severe sigmoid [address] colitis with perforation leading to sigmoid resection with Luke's procedure and colostomy. Patient now presented for reversal of the same. Has undergone ostomy, endoscopy/colonoscopy that was unremarkable. The Patient This Morning. Pending Surgery This Afternoon. Patient Rather Active. No Cardiac or Pulmonary Symptoms. No Chest Pain or Shortness of Breath. November 10: Colostomy reversal Today-continues to have abdominal pain. No nausea vomiting. Allowed ice chips. No flatus. Sitting up in a chair. Review of systems: Was done for constitutional, cardiovascular, GI, pulmonary. relevant finding as above Active Medications Acetaminophen (Acetaminophen Tab 325 Mg Tab) 650 mg PO Q6HR PRN PRN Reason: Fever and/ or Pain Last Admin: 11/12/20 20:44 Dose: 650 mg Documented by: Alvimopan (Alvimopan 12 Mg Capsule) 12 mg PO BID [facility] Stop: 11/17/20 21:01 Last Admin: 11/12/20 20:19 Dose: 12 mg Documented by: Amlodipine Besylate (Amlodipine 10 Mg Tab) 10 mg PO DAILY [facility] Last Admin: 11/12/20 07:28 Dose: 10 mg Documented by: Benzocaine/Menthol (Benzocaine/Menthol Lozeng 1 Each Lozenge) 1 each MUCOUS MEM Q1HR PRN PRN Reason: Sore Throat Heparin Sodium (Porcine) (Heparin Sodium,Porcine 5,000 Unit/Ml 1 Ml Vial) 5,000 unit SQ Q12HR [facility] Last Admin: 11/12/20 20:19 Dose: 5,000 unit Documented by: Hydromorphone HCl (Hydromorphone 1 Mg/Ml 1 Ml Syringe) 1 mg IVP Q3HR PRN PRN Reason: Severe Pain Last Admin: 11/12/20 12:33 Dose: 1 mg Documented by: Piperacillin Sod/Tazobactam (Sod 3.375 gm/ Sodium Chloride) 100 mls @ 25 mls/hr IVPB Q8H [facility] Last Admin: 11/12/20 20:19 Dose: 25 mls/hr Documented by: Potassium Chloride/Sodium Chloride (Ns-Kcl 40 Meq/L Iv Solution) 1,000 mls @ 100 mls/hr IV .Q10H [facility] Last Admin: 11/12/20 16:03 Dose: 100 mls/hr Documented by: Ferric Sodium Gluconate 125 mg (/ Sodium Chloride) 110 mls @ 100 mls/hr IVPB DAILY [facility] Stop: 11/13/20 10:05 Last Admin: 11/12/20 09:09 Dose: 100 mls/hr Documented by: Metronidazole 500 mg/ IV (Solution) 100 mls @ 100 mls/hr IVPB Q8HR [facility] Last Admin: 11/12/20 16:04 Dose: 100 mls/hr Documented by: Lidocaine HCl (Lidocaine 1% (10mg/Ml) For Iv Start) 0.1 ml INTRADERMA PER PROTOCOL PRN PRN Reason: IV Start Stop: 12/09/20 05:54 Naloxone HCl (Naloxone 0.4 Mg/Ml 1 Ml Vial) 0.2 mg IV Q2M PRN PRN Reason: Opioid Reversal Ondansetron HCl (Ondansetron 4 Mg/2 Ml Vial) 4 mg IVP Q6HR PRN PRN Reason: Nausea And Vomiting Last Admin: 11/10/20 12:08 Dose: 4 mg Documented by: Pantoprazole Sodium (Pantoprazole 40 Mg/10 Ml Vial) 40 mg IV DAILY [facility] Last Admin: 11/12/20 07:28 Dose: 40 mg Documented by: Tamsulosin HCl (Tamsulosin 0.4 Mg Cap.Er.24h) 0.4 mg PO -BRKT [facility] Last Admin: 11/12/20 07:28 Dose: 0.4 mg Documented by: Trazodone HCl (Trazodone Hcl 50 Mg Tab) 50 mg PO HS [facility] Last Admin: 11/12/20 20:19 Dose: 50 mg Documented by: Past medical history to include: Paroxysmal atrial fibrillation, hypertension, prostate cancer treated with surge ry and radiation treatment, back surgery, perforated sigmoid diverticulitis with Luke's procedure and colostomy Social 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 Conjunctiva normal. HEENT: External appearance of nose and ears normal, oral cavity grossly normal. NECK: JVD not raised; masses not palpable. HEART: First and second heart sounds are normal; no edema. LUNGS: Respiratory rate normal; clear to auscultation. ABDOMEN: Soft, dressing, tenderness, no guarding rigidity, liver spleen not palpable, no bowel sounds PSYCH: [Alert and oriented x3; mood and affect anxious. INVESTIGATIONS, reviewed in the clinical context: November 12: White count 11.5 hemoglobin 11.3 potassium 3.9 creatinine 1.1 November 11: White count 10.3 hemoglobin 11 potassium 3.7 creatinine 1.1 White count 6.5 hemoglobin 11.5 platelets 189 potassium 3.2 creatinine 1.1 Assessment: - reversal of colostomy for a prior history of sigmoid diverticulitis with perforation - June 2020 -Colonic diverticulosis-asymptomatic -Paroxysmal atrial fibrillation chronically on Coumadin-controlled -Coumadin monitoring-has been held for surgery -Prostate cancer with a history of surgery and radiation treatment -Primary osteoarthritis-use analgesics when necessary -Chronic kidney disease stage III likely nephrosclerosis -Reactive leukocytosis. Currently no clinical evidence of infection. Follow closely. Plan: Discussed with Dr. Lau. Not for resumption of Coumadin until discharge. Thank you Dr. Kwok
[2020-11-13] MEDS: metroNIDAZOLE-NS PMX 500 MG in SALINE 1 100ML.BAG IVPB SCH ×2 (00:42→08:30)
[2020-11-13] MEDS: 0.9% NACL WITH KCL 40 MEQ/L 1,000 ML IV SCH (00:43)
[2020-11-13] MEDS: PIPERACILLIN-TAZOBACTAM 3.375 GM in SODIUM CHLORIDE 0.9% 100 ML IVPB SCH (04:04)
[2020-11-13 04:46] LABS: Basophils % (A) 0 %; Eosinophils # (A) 0.1 k/uL (0-0.7); Eosinophils % (A) 1 %; HCT 35.2 % (39.0-53.0); HGB 11.2 gm/dL (13.0-17.5); Lymphocytes # (A) 0.6 k/uL (1.0-4.8); Lymphocytes % (A) 6 %; MCH 28.5 pg (25.0-35.0); MCHC 31.9 g/dL (31.0-37.0); MCV 89.4 fL (80.0-100.0); Mean Platelet Volume 7.9; Monocytes # (A) 0.6 k/uL (0-1.0); Monocytes % (A) 6 %; Neutrophils # (A) 7.3 k/uL (1.3-7.7); Neutrophils % (A) 84 %; Platelet Count 175 k/uL (150-450); RBC 3.94 m/uL (4.30-5.90); RDW 14.7 % (11.5-15.5); WBC 8.7 k/uL (3.8-10.6)
[2020-11-13 05:05] VITALS: BP 150/108; PULSE 104
[2020-11-13 05:07] LABS: African American GFR (CKD) 80 (>60 ml/min/1.73 sqM); Anion Gap 4 mmol/L; Blood Urea Nitrogen 19 mg/dL (9-20); Calcium 8.1 mg/dL (8.4-10.2); Carbon Dioxide 21 mmol/L (22-30); Chloride 114 mmol/L (98-107); Glucose 91 mg/dL (74-99); Non-African American GFR(CKD) 69 (>60 ml/min/1.73 sqM); Potassium 4.2 mmol/L (3.5-5.1); Sodium 139 mmol/L (137-145)
[2020-11-13] MEDS: TAMSULOSIN 0.4 MG CAP.ER.24H PO SCH (08:30)
[2020-11-13] MEDS: HEPARIN SODIUM,PORCINE 5,000 UNIT/ML 1 ML VIAL SQ SCH (08:30)
[2020-11-13] MEDS: amLODIPine 10 MG TAB PO SCH (08:30)
[2020-11-13] MEDS: PANTOPRAZOLE 40 MG/10 ML VIAL IV SCH (08:31)
--- NOTE | 2020-11-13 09:49 | P.PN ---
Subjective Progress Note Date: 11/13/20 CHIEF COMPLAINT: Perforated diverticulitis. HISTORY OF PRESENT ILLNESS: Christofer Hampton is an 80-year-old male status post robotic to open colostomy reversal including incisional hernia repair, peristomal hernia and extensive lysis of adhesions 11/10/2020. He feels his mentation has improved. Pain is co ntrolled. He had a bowel movement without blood. His , was on the telephone during my assessment. REVIEW OF ORGAN SYSTEMS: No fevers or chills. No chest pain. No shortness of breath. PHYSICAL EXAM: VITAL SIGNS: Reviewed Patient is an 80-year-old male. CONSTITUTIONAL: Well developed and in no acute distress. EYES: Conjuctivae without sclera icterus. Extraocular movements grossly intact. Wears glasses. HEAD, EARS, NOSE, THROAT: Moist buccal mucosa. Head is atraumatic, normocephalic. Hears conversational speech. No nasal drainage. NECK: Supple. No JV distention. No thyroidomegaly. RESPIRATORY: Non-labored respirations and equal bilateral excursions. No gross wheezes. CARDIOVASCULAR: Irregular rate and rhythm. Abdomen: Incisions intact. DEJON more serous than sanguinous. Abdominal binder present. MUSCULOSKELETAL: Nail and fingers with good capillary refill. SKIN: Warm and well perfused with good skin turgor. NEUROLOGIC: Cranial nerves II through XII grossly intact. Sensation upper and extremities intact. No focal or lateralizing signs. PSYCH: More distant today Alert and oriented to person. LABS: White blood cell count normal. Hemoglobin is stable. Creatinine is impro ving. ASSESSMENT: 1. History of perforated diverticulitis 2. New parastomal hernia. 3. Colostomy status 4. Atrial fibrillation, chronic 5. Chronic anticoagulation 6. Acute kidney injury due to NSAID and dehydration 7. Iron deficiency anemia PLAN: 1. Continue for liquid diet With protein shakes 2. May start Coumadin today. 3. Continue DEJON drain. 4. Home healthcare approves and confirmed with hospice case manager. 5. Follow-up in 1 week for removal of drains including dressings. Objective - Vital Signs Vital signs: Vital Signs Temp 97.6 F 11/13/20 05:00 Pulse 104 H 11/13/20 05:00 Resp 16 11/13/20 05:00 BP 150/108 11/13/20 05:00 Pulse Ox 97 11/13/20 05:00 Intake & Output 11/12/20 11/13/20 11/13/20 18:59 06:59 18:59 Intake Total 200 Output Total 650 470 Balance -650 -270 Intake: Intake, IV Titration 200 Amount Piperacillin-Tazobactam 3 100 .375 gm In Sodium Chloride 0.9% 100 ml @ 25 mls/hr IVPB Q8H [facility] Rx#: [id number] metroNIDAZOLE-NS PMX 500 100 mg In Saline 1 100ml.bag @ 100 mls/hr IVPB Q8HR [facility] Rx#:[id number] Output: Drainage 200 120 Right Lower 150 80 Right Upper Abdomen 50 40 Urine 450 350 Other: Voiding Method Urinal Urinal # Voids 1 # Bowel Movements 1 - Labs CBC & Chem 7: 11/13/20 04:24 11/13/20 04:24 Labs: Abnormal Lab Results - Last 24 Hours (Table) 11/12/20 11/12/20 11/13/20 Range/Units 05:10 05:10 04:24 WBC 11.56 H (4.50-10.00) X 10*3/uL RBC 4.05 L 3.94 L (4.40-5.60) X 10*6/uL Hgb 11.3 L 11.2 L (13.0-17.0) g/dL Hct 36.1 L 35.2 L (39.6-50.0) % MCHC 31.3 L (32.0-37.0) g/dL RDW 14.6 H (11.5-14.5) % Neutrophils # 9.89 H (1.80-7.70) X 10*3/uL Lymphocytes # 0.58 L 0.6 L (0.90-5.00) X 10*3/uL Monocytes # 1.04 H (0.20-1.00) X 10*3/uL Eosinophils # 0.01 L (0.04-0.35) X 10*3/uL Chloride 112 H (96-109) mmol/L Carbon Dioxide (22-30) mmol/L Calcium 7.8 L (8.7-10.3) mg/dL 11/13/20 Range/Units 04:24 WBC (4.50-10.00) X 10*3/uL RBC (4.40-5.60) X 10*6/uL Hgb (13.0-17.0) g/dL Hct (39.6-50.0) % MCHC (32.0-37.0) g/dL RDW (11.5-14.5) % Neutrophils # (1.80-7.70) X 10*3/uL Lymphocytes # (0.90-5.00) X 10*3/uL Monocytes # (0.20-1.00) X 10*3/uL Eosinophils # (0.04-0.35) X 10*3/uL Chloride 114 H (96-109) mmol/L Carbon Dioxide 21 L (22-30) mmol/L Calcium 8.1 L (8.7-10.3) mg/dL Assessment and Plan (1) Iron deficiency anemia Current Visit: Yes Status: Acute Code(s): D50.9 - IRON DEFICIENCY ANEMIA, UNSPECIFIED SNOMED Code(s): 11736835 (2) Colostomy status Current Visit: Yes Status: Acute Code(s): Z93.3 - COLOSTOMY STATUS SNOMED Code(s): 978348228 (3) Perforation of sigmoid colon due to diverticulitis Current Visit: Yes Status: Acute Code(s): K57.20 - DVTRCLI OF LG INT W PERFORATION AND ABSCESS W/O BLEEDING SNOMED Code(s): 6670109611222668 (4) Acute tubular necrosis Current Visit: No Status: Acute Code(s): N17.0 - ACUTE KIDNEY FAILURE WITH TUBULAR NECROSIS SNOMED Code(s): 20632297 (5) Atrial fibrillation Current Visit: No Status: Acute Code(s): I48.91 - UNSPECIFIED ATRIAL FIBRILLATION SNOMED Code(s): 53726562
--- NOTE | 2020-11-13 09:57 | P.DS ---
Providers Date of admission: 11/10/20 20:25 Expected date of discharge: 11/13/20 Attending physician: Tosha Lau Consults: 11/10/20 04:52 Consult Physician Routine Consulting Provider: Qiuque Watson Consult Reason/Comments: Medical management Do you want consulting provider notified?: Yes, Notify in am 11/10/20 04:54 Consult Physician Routine Consulting Provider: [facility] Consult Reason/Comments: Abdominal wall block Do you want consulting provider notified?: Yes 11/11/20 13:24 Consult Physician Routine Consulting Provider: [facility] Reason/Comments: Epidural Do you want consulting provider notified?: Yes Primary care physician: Maurizio Joel - Hannah Diagnosis(es) (1) Iron deficiency anemia Current Visit: Yes Status: Acute (2) Colostomy status Current Visit: Yes Status: Acute (3) Perforation of sigmoid colon due to diverticulitis Current Visit: Yes Status: Acute (4) Acute tubular necrosis Current Visit: No Status: Acute (5) Atrial fibrillation Current Visit: No Status: Acute Hospital Course: POSTOPERATIVE DIAGNOSES: 1. Perforated sigmoid diverticulitis with colostomy 2. Descending colostomy status 3. Chronic nature fibrillation 4. Iron deficiency anemia, present on admission 5. Acute and chronic renal insufficiency due to NSAIDs and dehydration 6. Severe diffuse peritoneal and omental adhesions 7. Rectal constipation COURSE: Christofer Hampton is an 80-year-old male status post robotic to open colostomy reversal including incisional hernia repair, peristomal hernia and extensive lysis of adhesions 11/10/2020. He feels his mentation has improved. Pain is controlled. He had a bowel movement without blood. His , was on the telephone during my assessment. REVIEW OF ORGAN SYSTEMS: No fevers or chills. No chest pain. No shortness of breath. PHYSICAL EXAM: VITAL SIGNS: Reviewed Patient is an 80-year-old male. CONSTITUTIONAL: Well developed and in no acute distress. EYES: Conjuctivae without sclera icterus. Extraocular movements grossly intact. Wears glasses. HEAD, EARS, NOSE, THROAT: Moist buccal mucosa. Head is atraumatic, normocephalic. Hears conversational speech. No nasal drainage. NECK: Supple. No JV distention. No thyroidomegaly. RESPIRATORY: Non-labored respirations and equal bilateral excursions. No gross wheezes. CARDIOVASCULAR: Irregular rate and rhythm. Abdomen: Incisions intact. DEJON more serous than sanguinous. Abdominal binder present. MUSCULOSKELETAL: Nail and fingers with good capillary refill. SKIN: Warm and well perfused with good skin turgor. NEUROLOGIC: Cranial nerves II through XII grossly intact. Sensation upper and extremities intact. No focal or lateralizing signs. PSYCH: More distant today Alert and oriented to person. LABS: White blood cell count normal. Hemoglobin is stable. Creatinine is improving. ASSESSMENT: 1. History of perforated diverticulitis 2. New parastomal hernia. 3. Colostomy status 4. Atrial fibrillation, chronic 5. Chronic anticoagulation 6. Acute kidney injury due to NSAID and dehydration 7. Iron deficiency anemia PLAN: 1. Continue for liquid diet With protein shakes 2. May start Coumadin today. 3. Continue DEJON drain. 4. Home healthcare approves and confirmed with mattress spring encaser. 5. Follow-up in 1 week for removal of drains including dressings. Procedures: OPERATION: 1. Robotic-assisted daVinci Xi laparoscopic lysis of adhesions over 3 hours 2. Robotic-assisted daVinci Xi laparoscopic colectomy with sigmoid resection 3. Robotic-assisted daVinci Xi laparoscopic repair of parastomal hernia, left lower quadrant using 11.[address] mesh 4. Robotic-assisted daVinci Xi laparoscopic converted to open closure of colostomy reversal with low anterior resection using 29 mm ILS 5. Open mobilization of splenic flexure 6. Open repair of epigastric midline incisional hernia 10 x 5 cm 7. Rectal lavage, normal saline 1 L 8. Intraoperative flexible sigmoidoscopy using colonoscopy 9. Placement of round #19 drain pelvis, right pelvis and left upper quadrant 10. Application of incisional wound VAC system 13 cm, PREVENA ostomy site, left lower quadrant Anesthesia: GETA, regional, local Estimated Blood Loss (ml): 200 Pathology: other (rectum, sigmoid colon) Condition: stable Disposition: floor COMPLICATIONS: None. Operative Findings: 1. Diffuse severe peritoneal adhesions involving the entire small bowel including abdominal wall requiring over 3+ hours lysing adhesions laparoscopically and open 2. Anastomosis with EEA stapler 29 mm 3. No tension or torsion along the anastomosis 4. Doughnuts intact both sides and viable 5. Moderate stool found in the rectum evacuated with lavage 6. Control of bleeding along the inferior pole splenic surface following mobilization of splenic flexure using Fibrillar and SNOW Patient Condition at Discharge: Good Plan - Discharge Summary Discharge Rx Participant: No New Discharge Prescriptions: New Acetaminophen Tab [Tylenol Tab] 1,000 mg PO Q6HR PRN #30 tablet PRN Reason: Pain Continue amLODIPine BESYLATE [Norvasc] 10 mg PO DAILY Multivitamins, Thera [Multivitamin (formulary)] 1 tab PO DAILY traZODone HCL 50 mg PO HS Warfarin [Coumadin] 5 mg PO Warfarin [Coumadin] 2.5 mg PO Discharge Medication List amLODIPine BESYLATE [Norvasc] 10 mg PO DAILY 02/21/14 [History] Multivitamins, Thera [Multivitamin (formulary)] 1 tab PO DAILY 04/12/18 [History] traZODone HCL 50 mg PO HS 06/22/20 [History] Warfarin [Coumadin] 2.5 mg PO SUMOSA 11/06/20 [History] Warfarin [Coumadin] 5 mg PO WETHFR 11/06/20 [History] Acetaminophen Tab [Tylenol Tab] 1,000 mg PO Q6HR PRN #30 tablet 11/13/20 [Rx] Follow up Appointment(s)/Referral(s): [facility], [NON-STAFF] - 1 Week Tosha Lau MD [STAFF PHYSICIAN] - 11/14/20 Patient Instructions/Handouts: David-Savage Drain Care (DC), Colectomy (GEN), Colectomy Diet (DC) Activity/Diet/Wound Care/Special Instructions: Wear abdominal binder at all times for comfort. Empty DEJON drains daily and record No lifting over 10 pounds in 4 weeks until December 08. DO NOT SHOWER because of drains MAY SPONGE BATH. No bath tub soaks until December 08. Avoid steak, tough meats and seeds such as raspberry seeds. No driving while on narcotics. Use Tylenol scheduled for the next 24-48 hours for best pain relief. Use ice along incisions for today to prevent swelling. Discharge Disposition: HOME WITH HOME HEALTH SERVICES
[2020-11-13] MEDS: ACETAMINOPHEN TAB 325 MG TAB PO PRN (10:31)
--- NOTE | 2020-11-13 23:33 | P.PN ---
Progress Note - Text Progress Note Date: 11/13/20 - Chief Complaint Abdominal surgery - History of Present Illness History of presenting complaint: This is a very pleasant 80-year-old patient of Dr. Joel. Chronic stable medical conditions include paroxysmal atrial fibrillation on Coumadin, hypertension, prostate cancer treated by surgery and followed by radiation treatment a year later, back surgery. In June 2020 patient had severe sigmoid Dr. colitis with perforation leading to sigmoid resection with Luke's procedure and colostomy. Patient now presented for reversal of the same. Has undergone ostomy, endoscopy/colonoscopy that was unremarkable. The Patient This Morning. Pending Surgery This Afternoon. Patient Rather Active. No Cardiac or Pulmonary Symptoms. No Chest Pain or Shortness of Breath. November 10: Colostomy reversal Today-had bowel movement. Some of down pain. No nausea vomiting. Eating fair. Review of systems: Was done for constitutional, cardiovascular, GI, pulmonary. relevant finding as above Current medications reviewed in today's electronic records Past medical history to include: Paroxysmal atrial fibrillation, hypertension, prostate cancer treated with surgery and radiation treatment, back surgery, perforated sigmoid diverticulitis with Luke's procedure and colostomy Social 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 Lives alone. 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 Conjunctiva normal. HEENT: External appearance of nose and ears normal, oral cavity grossly normal. NECK: JVD not raised; masses not palpable. HEART: First and second heart sounds are normal; no edema. LUNGS: Respiratory rate normal; clear to auscultation. ABDOMEN: Soft, dressing, tenderness, no guarding rigidity, liver spleen not palpable, no bowel sounds. DEJON drain PSYCH: [Alert and oriented x3; mood and affect anxious. INVESTIGATIONS, reviewed in the clinical context: November 13: White count 8.7 hemoglobin 11.2 potassium 4.2 November 12: White count 11.5 hemoglobin 11.3 potassium 3.9 creatinine 1.1 November 11: White count 10.3 hemoglobin 11 potassium 3.7 creatinine 1.1 White count 6.5 hemoglobin 11.5 platelets 189 potassium 3.2 creatinine 1.1 Assessment: - reversal of colostomy for a prior history of sigmoid diverticulitis with perforation - June 2020 -Colonic diverticulosis-asymptomatic -Paroxysmal atrial fibrillation chronically on Coumadin-controlled -Coumadin monitoring-has been held for surgery -Prostate cancer with a history of surgery and radiation treatment -Primary osteoarthritis-use analgesics when necessary -Chronic kidney disease stage III likely nephrosclerosis -Reactive leukocytosis. Currently no clinical evidence of infection. Improved Plan: Patient is being discharged by Dr. Kwok today. Antibiotics have been discontinued by her. Coumadin is being resumed. Patient should follow with her family doctor per discharge. Discussed with the patient. Thank you Dr. Kwok
== END 2020-11-13 14:10 | disposition home health service (06) | DRG 329 ==
LOC: ORWHC2ENDO 08:07 → 5NMEDONC 10:18 → ORWHC2ENDO 11-10 13:33 → OBSVTOIN 11-10 20:25
PROVIDERS: ADMIT Surgery Plastic and Reconstructive Surgery; ATTEND Surgery Plastic and Reconstructive Surgery
PROC: 0DBL8ZX Excision of Transverse Colon, Via Natural or Artificial Opening Endoscopic, Diagnostic (ICD-10-PCS; 2020-11-09 09:35)
PROC: 0WQF0ZZ Repair Abdominal Wall, Open Approach (ICD-10-PCS; principal; 2020-11-10 11:45)
PROC: 0DBN0ZZ Excision of Sigmoid Colon, Open Approach (ICD-10-PCS; principal; 2020-11-10 11:45)
PROC: 8E0W4CZ Robotic Assisted Procedure of Trunk Region, Percutaneous Endoscopic Approach (ICD-10-PCS; principal; 2020-11-10 11:45)
PROC: 0DN84ZZ Release Small Intestine, Percutaneous Endoscopic Approach (ICD-10-PCS; principal; 2020-11-10 11:45)
PROC: 0DBP4ZZ Excision of Rectum, Percutaneous Endoscopic Approach (ICD-10-PCS; principal; 2020-11-10 11:45)
PROC: 0DJD8ZZ Inspection of Lower Intestinal Tract, Via Natural or Artificial Opening Endoscopic (ICD-10-PCS; principal; 2020-11-10 11:45)
PROC: 3E1H78Z Irrigation of Lower GI using Irrigating Substance, Via Natural or Artificial Opening (ICD-10-PCS; principal; 2020-11-10 11:45)
PROC: 0DNM4ZZ Release Descending Colon, Percutaneous Endoscopic Approach (ICD-10-PCS; principal; 2020-11-10 11:45)
PROC: 0WUF4JZ Supplement Abdominal Wall with Synthetic Substitute, Percutaneous Endoscopic Approach (ICD-10-PCS; principal; 2020-11-10 11:45)
PROC: 0DNU4ZZ Release Omentum, Percutaneous Endoscopic Approach (ICD-10-PCS; principal; 2020-11-10 11:45)
DX: Z43.3 Encounter for attention to colostomy (principal); N17.0 Acute kidney failure with tubular necrosis; I48.20 Chronic atrial fibrillation, unspecified; D50.9 Iron deficiency anemia, unspecified; E86.0 Dehydration; D12.3 Benign neoplasm of transverse colon; N18.30 Chronic kidney disease, stage 3 unspecified; J44.9 Chronic obstructive pulmonary disease, unspecified; K66.0 Peritoneal adhesions (postprocedural) (postinfection); K43.5 Parastomal hernia without obstruction or gangrene; K43.2 Incisional hernia without obstruction or gangrene; K57.30 Diverticulosis of large intestine without perforation or abscess without bleeding; Z53.31 Laparoscopic surgical procedure converted to open procedure; T39.395A Adverse effect of other nonsteroidal anti-inflammatory drugs [NSAID], initial encounter; K64.0 First degree hemorrhoids; K59.09 Other constipation; I12.9 Hypertensive chronic kidney disease with stage 1 through stage 4 chronic kidney disease, or unspecified chronic kidney disease; M54.5 Low back pain; G89.29 Other chronic pain; M19.91 Primary osteoarthritis, unspecified site; Z79.01 Long term (current) use of anticoagulants; Z79.1 Long term (current) use of non-steroidal anti-inflammatories (NSAID); Z79.899 Other long term (current) drug therapy; Z90.89 Acquired absence of other organs; Z96.652 Presence of left artificial knee joint; Z87.39 Personal history of other diseases of the musculoskeletal system and connective tissue; Z85.46 Personal history of malignant neoplasm of prostate; Z98.1 Arthrodesis status; Z90.49 Acquired absence of other specified parts of digestive tract; Z92.3 Personal history of irradiation; Z98.890 Other specified postprocedural states; Z80.9 Family history of malignant neoplasm, unspecified
CPT/HCPCS: 44389; 45378; 64488; 80048; 80053; 82728; 83540; 83550; 83735; 84100; 85025; 85610; 86850; 86900; 86901; 88305; 93005

== ENCOUNTER 2020-11-28 15:00 | Emergency (ER) | payer MEDICARE, BC ==
[2020-11-28 15:16] VITALS: RESP 16; TEMP 98.8
--- NOTE | 2020-11-28 15:48 | ED ---
General Adult HPI - General Chief complaint: Chest Pain Stated complaint: Chest pain Time Seen by Provider: 11/28/20 15:25 Source: patient Mode of arrival: wheelchair Limitations: no limitations - History of Present Illness Initial comments: Christofer is an 80-year-old male with extensive past medical history most significant for surgery this month for reversal of colostomy. Patient presents to the ER today for evaluation of 3-4 days of pleuritic like chest pain. Pain is described as being in the bilateral upper chest region worse with inspiration, does not improve with rest or Tylenol. No associated fevers chills cough or shortness of breath. He has been feeling very fatigued lately and today did not get out of his chair all day which prompted his to bring him to the ER for further evaluation. - Related Data Home Medications Medication Instructions Recorded Confirmed amLODIPine BESYLATE [Norvasc] 10 mg PO DAILY 02/21/14 11/28/20 Multivitamins, Thera [Multivitamin 1 tab PO DAILY 04/12/18 11/28/20 (formulary)] traZODone HCL 50 mg PO HS 06/22/20 11/28/20 Warfarin [Coumadin] 2.5 mg PO SUWETHFRSA@2100 11/06/20 11/28/20 Warfarin [Coumadin] 5 mg PO MOTU@2100 11/06/20 11/28/20 Previous Rx's Medication Instructions Recorded Acetaminophen Tab [Tylenol Tab] 1,000 mg PO Q6HR PRN #30 tablet 11/13/20 Allergies Allergy/AdvReac Type Severity Reaction Status Date / Time No Known Allergies Allergy Verified 11/28/20 17:49 Review of Systems ROS Statement: Those systems with pertinent positive or pertinent negative responses have been documented in the HPI. ROS Other: All systems not noted in ROS Statement are negative. Past Medical History Past Medical History: Atrial Fibrillation, Cancer, Hypertension, Osteoarthritis (OA), Prostate Disorder Additional Past Medical History / Comment(s): diverticulitis, prostate cancer History of Any Multi-Drug Resistant Organisms: None Reported Past Surgical History: Back Surgery, Bowel Resection, Joint Replacement, Prostate Surgery, Tonsillectomy Additional Past Surgical History / Comment(s): left TOTAL KNEE; MULT arthroscopy RT KNEE; ROHITH ROTATOR CUFF SURG, CYST REMOVED; three back surgeries(laminectomy x 2,fusion) bowel resection with colostomy 06/2020, 11/2020 colostomy reversal Past Anesthesia/Blood Transfusion Reactions: No Reported Reaction Past Psychological History: No Psychological Hx Reported Smoking Status: Never smoker Past Alcohol Use History: None Reported Past Drug Use History: None Reported - Past Family History Mother Family Medical History: Cancer Additional Family Medical History / Comment(s): . Father Family Medical History: Cancer General Exam - General Exam Comments Initial Comments: Physical Exam GENERAL: Patient is well-developed and well-nourished. Patient is nontoxic and well-hydrated and is in no distress. HENT: Normocephalic, Atraumatic. EYES: PERRL, EOMI PULMONARY: Unlabored respirations. No audible rales rhonchi or wheezing was noted. CARDIOVASCULAR: Irregular ABDOMEN: Soft, minimal tenderness at incision sites SKIN: Well healing surgical incisions : Deferred NEUROLOGIC: Patient is alert and oriented x3. Moving all extremities spontaneously MUSCULOSKELETAL: Normal extremities with adequate strength and full range of motion. No lower extremity swelling or edema. No calf tenderness. PSYCHIATRIC: Normal psychiatric evaluation. Limitations: no limitations Course Vital Signs 11/28/20 11/28/20 15:13 18:00 Temperature 98.8 F Pulse Rate 107 H 94 Respiratory 16 16 Rate Blood Pressure 116/72 122/75 O2 Sat by Pulse 96 98 Oximetry EKG Findings - EKG Comments: EKG Findings:: EKG was obtained due to complaint of chest pain, EKG was obtained at 1524, rate is 95 rhythm is A. fib normal axis normal intervals no acute ST elevations or depressions no evidence of ischemia or infarction. Medical Decision Making - Medical Decision Making Patient with multiple days of pleuritic like chest pain cardiac workup was negative, COVID 19 was negative Results were discussed with patient and at bedside given patient's advanced age I did discuss possibility for observation for further evaluation however they prefer to go home, close return parameters were discussed patient was discharged home in stable condition - Lab Data Result diagrams: 11/28/20 16:11 11/28/20 16:11 Lab Results 11/28/20 11/28/20 11/28/20 Range/Units 16:11 16:11 16:11 WBC 11.3 H (3.8-10.6) k/uL RBC 4.22 L (4.30-5.90) m/uL Hgb 12.0 L (13.0-17.5) gm/dL Hct 36.5 L (39.0-53.0) % MCV 86.5 (80.0-100.0) fL MCH 28.4 (25.0-35.0) pg MCHC 32.8 (31.0-37.0) g/dL RDW 14.4 (11.5-15.5) % Plt Count 262 (150-450) k/uL MPV 7.6 Neutrophils % 84 % Lymphocytes % 4 % Monocytes % 9 % Eosinophils % 1 % Basophils % 0 % Neutrophils # 9.5 H (1.3-7.7) k/uL Lymphocytes # 0.5 L (1.0-4.8) k/uL Monocytes # 1.0 (0-1.0) k/uL Eosinophils # 0.1 (0-0.7) k/uL Basophils # 0.0 (0-0.2) k/uL PT 22.7 H (9.0-12.0) sec INR 2.3 H (<1.2) APTT 39.4 H (22.0-30.0) sec Sodium 139 (137-145) mmol/L Potassium 3.9 (3.5-5.1) mmol/L Chloride 104 (98-107) mmol/L Carbon Dioxide 26 (22-30) mmol/L Anion Gap 9 mmol/L BUN 22 H (9-20) mg/dL Creatinine 1.07 (0.66-1.25) mg/dL Est GFR (CKD-EPI)AfAm 75 (>60 ml/min/1.73 sqM) Est GFR (CKD-EPI)NonAf 65 (>60 ml/min/1.73 sqM) Glucose 107 H (74-99) mg/dL Calcium 8.9 (8.4-10.2) mg/dL Magnesium 2.0 (1.6-2.3) mg/dL Total Bilirubin 0.7 (0.2-1.3) mg/dL AST 18 (17-59) U/L ALT 26 (4-49) U/L Alkaline Phosphatase 74 (38-126) U/L Troponin I (0.000-0.034) ng/mL Total Protein 6.3 (6.3-8.2) g/dL Albumin 3.2 L (3.5-5.0) g/dL Urine Color Urine Appearance (Clear) Urine pH (5.0-8.0) Ur Specific [place] (1.001-1.035) Urine Protein (Negative) Urine Glucose (UA) (Negative) Urine Ketones (Negative) Urine Blood (Negative) Urine Nitrite (Negative) Urine Bilirubin (Negative) Urine Urobilinogen (<2.0) mg/dL Ur Leukocyte Esterase (Negative) Urine RBC (0-5) /hpf Urine WBC (0-5) /hpf Urine Mucus (None) /hpf Coronavirus (PCR) (Not Detectd) 11/28/20 11/28/20 11/28/20 Range/Units 16:11 18:00 18:00 WBC (3.8-10.6) k/uL RBC (4.30-5.90) m/uL Hgb (13.0-17.5) gm/dL Hct (39.0-53.0) % MCV (80.0-100.0) fL MCH (25.0-35.0) pg MCHC (31.0-37.0) g/dL RDW (11.5-15.5) % Plt Count (150-450) k/uL MPV Neutrophils % % Lymphocytes % % Monocytes % % Eosinophils % % Basophils % % Neutrophils # (1.3-7.7) k/uL Lymphocytes # (1.0-4.8) k/uL Monocytes # (0-1.0) k/uL Eosinophils # (0-0.7) k/uL Basophils # (0-0.2) k/uL PT (9.0-12.0) sec INR (<1.2) APTT (22.0-30.0) sec Sodium (137-145) mmol/L Potassium (3.5-5.1) mmol/L Chloride (98-107) mmol/L Carbon Dioxide (22-30) mmol/L Anion Gap mmol/L BUN (9-20) mg/dL Creatinine (0.66-1.25) mg/dL Est GFR (CKD-EPI)AfAm (>60 ml/min/1.73 sqM) Est GFR (CKD-EPI)NonAf (>60 ml/min/1.73 sqM) Glucose (74-99) mg/dL Calcium (8.4-10.2) mg/dL Magnesium (1.6-2.3) mg/dL Total Bilirubin (0.2-1.3) mg/dL AST (17-59) U/L ALT (4-49) U/L Alkaline Phosphatase (38-126) U/L Troponin I <0.012 (0.000-0.034) ng/mL Total Protein (6.3-8.2) g/dL Albumin (3.5-5.0) g/dL Urine Color Yellow Urine Appearance Clear (Clear) Urine pH 6.0 (5.0-8.0) Ur Specific [place] 1.022 (1.001-1.035) Urine Protein 1+ H (Negative) Urine Glucose (UA) Negative (Negative) Urine Ketones Negative (Negative) Urine Blood Negative (Negative) Urine Nitrite Negative (Negative) Urine Bilirubin Negative (Negative) Urine Urobilinogen <2.0 (<2.0) mg/dL Ur Leukocyte Esterase Negative (Negative) Urine RBC <1 (0-5) /hpf Urine WBC 1 (0-5) /hpf Urine Mucus Rare H (None) /hpf Coronavirus (PCR) Not Detected (Not Detectd) Disposition Clinical Impression: Atypical chest pain Disposition: HOME SELF-CARE Condition: Stable Instructions (If sedation given, give patient instructions): Chest Pain (ED) Additional Instructions: As we discussed I suspect you are suffering from a viral illness, make sure you get plenty of rest and stay hydrated. Return to the ER for any worsening of your condition. Is patient prescribed a controlled substance at d/c from ED?: No Referrals: Maurizio Joel DO [Primary Care Provider] - 1-2 days
[2020-11-28 16:19] LABS: Basophils % (A) 0 %; Eosinophils # (A) 0.1 k/uL (0-0.7); Eosinophils % (A) 1 %; HCT 36.5 % (39.0-53.0); Lymphocytes # (A) 0.5 k/uL (1.0-4.8); Lymphocytes % (A) 4 %; MCH 28.4 pg (25.0-35.0); MCHC 32.8 g/dL (31.0-37.0); MCV 86.5 fL (80.0-100.0); Mean Platelet Volume 7.6; Monocytes % (A) 9 %; Neutrophils # (A) 9.5 k/uL (1.3-7.7); Neutrophils % (A) 84 %; Platelet Count 262 k/uL (150-450); RBC 4.22 m/uL (4.30-5.90); RDW 14.4 % (11.5-15.5); WBC 11.3 k/uL (3.8-10.6)
[2020-11-28 16:32] LABS: Albumin 3.2 g/dL (3.5-5.0); Calcium 8.9 mg/dL (8.4-10.2); Potassium 3.9 mmol/L (3.5-5.1); Total Bilirubin 0.7 mg/dL (0.2-1.3); Total Protein 6.3 g/dL (6.3-8.2)
[2020-11-28 16:46] LABS: INR 2.3 (<1.2); Partial Thromboplastin Time 39.4 sec (22.0-30.0); Prothrombin Time 22.7 sec (9.0-12.0)
--- NOTE | 2020-11-28 16:57 | XR ---
EXAMINATION TYPE: XR chest 2V DATE OF EXAM: 11/28/2020 COMPARISON: 07/05/2020. HISTORY: Chest pain for 4 days. TECHNIQUE: Frontal and lateral views of the chest are obtained. FINDINGS: There is chronic blunting of the right costophrenic angle and elevation of the right hemid iaphragm.. No focal air space opacity, pleural effusion, or pneumothorax seen. The cardiac silhouett e size is within normal limits. The osseous structures are intact. IMPRESSION: No acute cardiopulmonary process. Chronic findings as above.
[2020-11-28 18:07] VITALS: BP 122/75; PULSE 94
[2020-11-28] MEDS ORDERED: ACETAMINOPHEN TAB 500 MG TAB PO STA (18:33)
[2020-11-28 18:39] LABS: Appearance,Urine Clear (Clear); Bilirubin,Urine Negative (Negative); Blood,Urine Negative (Negative); Color,Urine Yellow; Glucose,Urine (UA) Negative (Negative); Ketones,Urine Negative (Negative); Leukocyte Esterase,Urine Negative (Negative); Mucus,Urine Rare /hpf; Nitrite,Urine Negative (Negative); Protein,Urine 1+ (Negative); RBC,Urine <1 /hpf (0-5); Specific Gravity,Urine 1.022 (1.001-1.035); Urobilinogen,Urine <2.0 mg/dL (<2.0); WBC,Urine 1 /hpf (0-5)
== END 2020-11-28 19:19 | disposition home or self-care (01) ==
LOC: EC 15:00
DX: R07.89 Other chest pain (principal); R53.83 Other fatigue; I48.91 Unspecified atrial fibrillation; I10 Essential (primary) hypertension; M19.90 Unspecified osteoarthritis, unspecified site; Z20.822 Contact with and (suspected) exposure to COVID-19; Z79.01 Long term (current) use of anticoagulants; Z79.899 Other long term (current) drug therapy; Z96.652 Presence of left artificial knee joint; Z85.46 Personal history of malignant neoplasm of prostate
CPT/HCPCS: 36415; 71046; 80053; 81001; 83735; 84484; 85025; 85610; 85730; 87635; 99285

== ENCOUNTER 2020-12-01 13:21 | Emergency (ER) | payer MEDICARE, BC ==
[2020-12-01 13:40] VITALS: BP 131/86; PULSE 115; RESP 18; TEMP 97.9
--- NOTE | 2020-12-01 14:54 | ED ---
General Adult HPI - General Chief complaint: Abdominal Pain Stated complaint: abd pain-sent by Sid Time Seen by Provider: 12/01/20 14:00 Source: patient, family, RN notes reviewed, old records reviewed Mode of arrival: ambulatory Limitations: no limitations - History of Present Illness Initial comments: This is an 80-year-old male who presents emergency Department complaining of shoulder pain since Friday. Patient states she was here Friday because it started off as chest discomfort that radiated around to his neck but he changed his shoulder pain after they left the emergency department. Patient denies any fever or chills patient denies cough patient denies lightheadedness or dizziness. Patient states his abdomen is not sore he's not been vomiting or having diarrhea. Patient states she is slightly constipated. - Related Data Home Medications Medication Instructions Recorded Confirmed amLODIPine BESYLATE [Norvasc] 10 mg PO DAILY 02/21/14 11/28/20 Multivitamins, Thera [Multivitamin 1 tab PO DAILY 04/12/18 11/28/20 (formulary)] traZODone HCL 50 mg PO HS 06/22/20 11/28/20 Warfarin [Coumadin] 2.5 mg PO SUWETHFRSA@2100 11/06/20 11/28/20 Warfarin [Coumadin] 5 mg PO MOTU@209911/06/20 11/28/20 Previous Rx's Medication Instructions Recorded Acetaminophen Tab [Tylenol Tab] 1,000 mg PO Q6HR PRN #30 tablet 11/13/20 Allergies Allergy/AdvReac Type Severity Reaction Status Date / Time No Known Allergies Allergy Verified 12/01/20 13:40 Review of Systems ROS Statement: Those systems with pertinent positive or pertinent negative responses have been documented in the HPI. ROS Other: All systems not noted in ROS Statement are negative. Past Medical History Past Medical History: Atrial Fibrillation, Cancer, Hypertension, Osteoarthritis (OA), Prostate Disorder Additional Past Medical History / Comment(s): diverticulitis, prostate cancer History of Any Multi-Drug Resistant Organisms: None Reported Past Surgical History: Back Surgery, Bowel Resection, Joint Replacement, Prostate Surgery, Tonsillectomy Additional Past Surgical History / Comment(s): left TOTAL KNEE; MULT arthroscopy RT KNEE; ROHITH ROTATOR CUFF SURG, CYST REMOVED; three back surgeries(laminectomy x 2,fusion) bowel resection with colostomy 06/2020, 11/2020 colostomy reversal Past Anesthesia/Blood Transfusion Reactions: No Reported Reaction Past Psychological History: No Psychological Hx Reported Smoking Status: Never smoker Past Alcohol Use History: None Reported Past Drug Use History: None Reported - Past Family History Mother Family Medical History: Cancer Additional Family Medical History / Comment(s): . Father Family Medical History: Cancer General Exam - General Exam Comments Initial Comments: GENERAL: Patient is well-developed and well-nourished. Patient is nontoxic and well- hydrated and is in mild distress. ENT: Neck is soft and supple. No significant lymphadenopathy is noted. Oropharynx is clear. Moist mucous membranes. Neck has full range of motion without eliciting any pain. EYES: The sclera were anicteric and conjunctiva were pink and moist. Extraocular movements were intact and pupils were equal round and reactive to light. Eyelids were unremarkable. PULMONARY: Unlabored respirations. Good breath sounds bilaterally. No audible rales rhonchi or wheezing was noted. CARDIOVASCULAR: There is a regular rate and rhythm without any murmurs gallops or rubs. ABDOMEN: Abdomen has incisions that appear to be here healing well linh are still in place. SKIN: Skin is clear with no lesions or rashes and otherwise unremarkable. NEUROLOGIC: Patient is alert and oriented x3. Cranial nerves II through XII are grossly intact. Motor and sensory are also intact. Normal speech, volume and content. Symmetrical smile. MUSCULOSKELETAL: Movement of the right arm elicits pain a little bit in the shoulder blade area on the right. Patient also takes a deep breath and it causes pain behind the shoulder blade on the right. LYMPHATICS: No significant lymphadenopathy is noted PSYCHIATRIC: Normal psychiatric evaluation. Limitations: no limitations Course Vital Signs 12/01/20 13:35 Temperature 97.9 F Pulse Rate 115 H Respiratory 18 Rate Blood Pressure 131/86 O2 Sat by Pulse 97 Oximetry Medical Decision Making - Medical Decision Making after I left the room he indicated to the nurse that he was sent over to get a CAT scan however he did not indicate that to me. I was already going to get a CAT scan of his abdomen and pelvis but I first wanted to make sure his d-dimer was negative even though the patient was on Coumadin. Patient complaining shoulder pain in the pain with deep breathing. At that point in time the nurse informed him of this and the patient left AMA Disposition Clinical Impression: Shoulder pain Disposition: Left Against Medical Advice Referrals: Maurizio Joel DO [Primary Care Provider] - 1-2 days Time of Disposition: 14:54
== END 2020-12-01 14:30 | disposition left against medical advice (07) ==
LOC: EC 13:21
DX: M25.511 Pain in right shoulder (principal); I48.91 Unspecified atrial fibrillation; I10 Essential (primary) hypertension; Z79.01 Long term (current) use of anticoagulants; Z79.899 Other long term (current) drug therapy; Z90.49 Acquired absence of other specified parts of digestive tract; Z96.652 Presence of left artificial knee joint; Z85.46 Personal history of malignant neoplasm of prostate; Z53.29 Procedure and treatment not carried out because of patient's decision for other reasons
CPT/HCPCS: 99284

== ENCOUNTER → 2020-12-05 | Outpatient (CLI) | payer MEDICARE, BC ==
--- NOTE | 2020-12-05 14:17 | CT ---
EXAMINATION TYPE: CT ChestAbdPelvis w con DATE OF EXAM: 12/05/2020 COMPARISON: Prior CT abdomen and pelvis 06/22/2020 HISTORY: 80-year-old male C61, Prostate cancer TECHNIQUE: Contiguous axial scanning of the chest, abdomen, and pelvis performed with IV Contrast, pa tient injected with 100 ml mL of Isovue 300. Delayed images through the kidneys were obtained. Valentine l/sagittal reconstructions performed. CT DLP: 1459 mGycm Automated exposure control for dose reduction was used. FINDINGS: CHEST: Possible 2.1 cm mixed density nodule projecting posteriorly from the right lobe of the thyroid gland. Thyroid ultrasound can attempt visualization. Heart normal size without pericardial effusion. LAD and RCA coronary artery calcifications are presen t. Ectatic ascending aorta 3.9 cm. Bovine configuration to the aortic arch. Mild atherosclerotic calcifi cations throughout the thoracic aorta. Ectatic upper descending thoracic aorta at 3.4 cm. Large caliber to the right main pulmonary artery at 3.0 cm may reflect underlying pulmonary arterial hypertension. Scattered nonenlarged mediastinal lymph nodes. No thoracic lymphadenopathy by CT size criteria. Calci fied left hilar lymph nodes compatible with prior granulomatous disease. There is a trace to small left pleural effusion with bands of atelectasis at both lung bases. 3 mm subpleural pulmonary nodule lateral right apex, axial image 7. ABDOMEN: Elevated right hemidiaphragm. A couple stable hepatic cysts measuring up to 6 mm. Portal venous syste m is patent. No biliary ductal dilatation. Gallbladder shows no abnormal wall thickening. No hydropic change though it is normally distended. Adrenal glands and pancreas show no gross abnormality. Numerous subcentimeter hypodense lesions within both kidneys suggestive of renal cortical cysts. There is generalized anasarca change and laparotomy change along with a left subphrenic collection of fluid and mottled air measuring 7.2 x 5.6 cm. This abuts the spleen. Additional sliver of fluid deep to the left mid abdominal wall musculature measuring 5.9 cm wide and 7 mm thick, axial image 75. Moderate atherosclerotic calcifications abdominal aorta and common iliac arteries. No dilated small bowel or free air. Some mild ascites tracks down the left flank. Some stable prominent left periaortic lymph nodes measuring up to 8 mm, unchanged from 06/22/2020, pro bably reactive. No mesenteric lymphadenopathy. Normal appendix. Oral contrast progressed to the hepatic flexure of the colon. Mild overall stool bur den. There is a staple line from interval resection and reanastomosis at the distal sigmoid. Divertic ular change distal sigmoid. PELVIS: Circumferential bladder wall thickening probably chronic lateral hypertrophy and/or posttreatment sandor nge. Moderate stool in the rectum. No abnormal fluid collection the pelvis or pelvic lymphadenopathy. Nodular area within the right inguinal canal measuring 3.2 cm could represent a high riding/canalicu lar testicle versus encysted hydrocele. Prostate gland not appreciated and may be surgically absent. BONES: Degenerative change of the pubic symphysis and both hips. Advanced degenerative disc disease L4-L5 mo derately advanced L5-S1. Hypertrophic facet arthropathy. No osseous destructive process seen. IMPRESSION: 1. SUSPECT PREVIOUS PROSTATECTOMY. BORDERLINE SIZED LEFT PERIAORTIC LYMPH NODES IN THE RETROPERITONEU M MEASURING UP TO 8 MM REMAIN UNCHANGED AND ARE PROBABLY REACTIVE/POST INFLAMMATORY. 2. A 3 MM RIGHT APICAL PULMONARY NODULE IS NONSPECIFIC AND CAN BE REASSESSED AT FOLLOW-UP. OTHERWISE, NO FINDINGS OF METASTATIC DISEASE. 3. INTERVAL LAPAROTOMY CHANGE WITH DISTAL SIGMOID RESECTION AND RE-ANASTOMOSIS. NOTE THAT THERE ARE F INDINGS CONCERNING FOR A LEFT-SIDED SUBPHRENIC ABSCESS MEASURING 7.2 X 5.6 CM. ADDITIONAL 5.9 X 0.7 C M SLIVER OF FLUID JUST DEEP TO THE LEFT MID ABDOMINAL WALL MUSCULATURE. 4. POSSIBLE 2.1 CM POSTERIOR RIGHT THYROID NODULE. DEDICATED THYROID ULTRASOUND CAN FURTHER EVALUATE.
--- NOTE | 2020-12-05 16:38 | NM ---
EXAMINATION TYPE: NM bone scan whole body DATE OF EXAM: 12/05/2020 COMPARISON: CT chest abdomen and pelvis 12/05/2020, nuclear medicine bone scan 02/21/2020 HISTORY: Prostate cancer Delayed whole-body scanning was performed following the injection of 24.1 mCi Tc 99m MDP. Images acq uired 3 hours post injection. FINDINGS: Note is made of contamination below the pelvis. Small amount of uptake appears to be related to the u rinary bladder. There is focal uptake within the bilateral wrists likely degenerative in nature. Some degenerative ch anges are within the bilateral knees and likely within the ankle. There is some uptake within the lumbar spine greatest on the posterior right L4-5 level. This is nons pecific. This could be related to degenerative change. Metastasis is not excluded at this level. Oneill josue, findings appear more degenerative on the CT examination of the same date and will present previo usly on the bone scan. No significant increase is evident. IMPRESSION: 1. Findings appear stable and suggestive for degenerative changes. 2. No new or suspicious uptake to suggest metastatic disease.
== END | disposition home or self-care (01) ==
LOC: RADNMMAIN 10:40
PROVIDERS: ATTEND Internal Medicine Hematology & Oncology
DX: R91.1 Solitary pulmonary nodule (principal); R59.0 Localized enlarged lymph nodes; C61 Malignant neoplasm of prostate; Z88.0 Allergy status to penicillin; Z88.2 Allergy status to sulfonamides; Z98.890 Other specified postprocedural states
CPT/HCPCS: 82565; 84520; 71260; 74177; 36415; 78306; A9503; Q9967

== ENCOUNTER → 2021-02-28 | Outpatient (CLI) | payer MEDICARE, BC ==
--- NOTE | 2021-02-28 11:33 | CT ---
EXAMINATION TYPE: CT abdomen pelvis wo con DATE OF EXAM: 02/28/2021 COMPARISON: 12/05/2020 HISTORY: 81-year-old male Post Op colon resection and hernia repair. Abdominal distension for [address] DLP: 690 mGycm. Automated exposure control for dose reduction was used. TECHNIQUE: Contiguous axial scanning of the abdomen and pelvis without IV contrast. Coronal and sagit moses reconstructions performed. FINDINGS: The heart is upper limits of normal in size. Calcified left hilar lymph nodes compatible with prior d isease. LAD and RCA coronary artery calcifications are present. Large caliber to the main right and l eft pulmonary arteries measuring up to 3.0 cm suggesting underlying pulmonary arterial hypertension. No pleural effusion. Noncontrast appearance of the liver shows a stable subcentimeter hypodensity in the right hepatic dom e and caudate lobe suggesting a cyst. Gallbladder, adrenal glands, and pancreas show no gross abnormality. Small cortical hypodensities in the right kidney are unchanged suggesting cysts. 1.[address] left kidney. Moderate metastatic calcifications abdominal aorta. Bulging laxity has developed in the supraumbilical midline focally measuring 4.8 cm wide with a protr uding small bowel loop, refer to axial image 89 and 88 and sagittal image 52. No dilated small bowel, free fluid, or free air. Normal appendix. Moderate stool burden. Post surgical change of distal sigmoid resection and re-anast omosis. There are graft residual left upper quadrant perisplenic abscess measuring 5.8 x 3.8 cm versu s 7.2 x 5.6 cm, previously. Moderate circumferential bladder wall thickening. 3.4 cm nodular density in the lower right inguinal canal is unchanged. Bones: Moderate degenerative change of the hips. Degenerated dextroconvex curvature of the lumbar spi ne. Dictation the lower thoracic spine. Degenerative trace grade 1 anterolisthesis L2-L3 and grade 1 retrolisthesis L1-L2. IMPRESSION: 1. Bulging laxity has developed along the supraumbilical midline measuring 4.8 cm wide containing a protruding small bowel loop. In the future, this may develop into an incisional hernia 2. Left upper quadrant, perisplenic abscess shows slight decrease in size currently at 5.8 x 3.8 cm (versus 7.2 x 5.6 cm on 12/05/2020). 3. Prior distal sigmoid resection and re-anastomosis. 4. Moderate circumferential bladder wall thickening could reflect chronic bladder hypertrophy, postt reatment change, or cystitis. 5. Stable nodule within the lower right inguinal canal measuring 3.4 cm. An encysted hydrocele or ca nalicular testicle are considerations.
== END | disposition home or self-care (01) ==
LOC: RADCTMAIN 10:51
PROVIDERS: ATTEND Surgery Plastic and Reconstructive Surgery
DX: K65.1 Peritoneal abscess (principal); Z98.890 Other specified postprocedural states
CPT/HCPCS: 74176

== ENCOUNTER 2021-03-30 07:06 | Observation (INO) | payer MEDICARE, BC ==
[2021-03-28 10:49] VITALS: BMI 22.9
[~2021-03-30 07:06] MED LIST changes: +DEXAMETHASONE SOD PHOSPHATE 4 MG/ML 1 ML VIAL IV ONE; +HEPARIN SODIUM,PORCINE/PF 5,000 UNIT/0.5 ML SYRINGE SQ PRN; +ONDANSETRON 4 MG/2 ML VIAL IVP ONE
[2021-03-30] MEDS ORDERED: TAMSULOSIN 0.4 MG CAP.ER.24H PO PRN (07:51)
[2021-03-30] MEDS ORDERED: ACETAMINOPHEN TAB 500 MG TAB PO PRN (07:51)
--- NOTE | 2021-03-30 07:51 | P.GSHP ---
History of Present Illness H&P Date: 03/30/21 CHIEF COMPLAINT: Incisional ventral hernia HISTORY OF PRESENT ILLNESS: The patient is a 81-year-old male who presents with a history of swelling and pain along the abdomen from a hernia. Now he presents for surgical intervention. PAST MEDICAL HISTORY: Please see list. PAST SURGICAL HISTORY: Please see list. MEDICATIONS: Please see list. ALLERGIES: Please see list. SOCIAL HISTORY: No illicit drug use FAMILY HISTORY: No reports of Crohn disease or ulcerative colitis. REVIEW OF ORGAN SYSTEMS: CONSTITUTIONAL: No reports of fevers or chills. No reports of weight loss despite prior attempts. PHYSICAL EXAM: VITAL SIGNS: Stable GENERAL: Well-developed pleasant male in no acute distress. HEENT: No scleral icterus. Extraocular movements grossly intact. Moist buccal mucosa. NECK: Supple without lymphadenopathy. CHEST: Unlabored respirations. Equal bilateral excursions. CARDIOVASCULAR: Irregular rate and rhythm. Distal 2+ pulses. ABDOMEN: Soft, nondistended. Palpable defect of the abdomen. No peritoneal signs. MUSCULOSKELETAL: No clubbing, cyanosis, or edema. ASSESSMENT: 1. Incisional ventral hernia PLAN: 1. Recommend proceeding with robotic ventral hernia repair with mesh. 2. Benefits and risks of surgical intervention was discussed including possibility of open technique. 3. DVT prophylaxis. 4. Antibiotic prophylaxis. 5. He is high risk with cardiomyopathy Past Medical History Past Medical History: Atrial Fibrillation, Cancer, Hypertension, Osteoarthritis (OA), Prostate Disorder Additional Past Medical History / Comment(s): diverticulitis, prostate cancer in 2012 History of Any Multi-Drug Resistant Organisms: None Reported Past Surgical History: Back Surgery, Bowel Resection, Joint Replacement, Prostate Surgery, Tonsillectomy Additional Past Surgical History / Comment(s): left TOTAL KNEE; MULT arthroscopy RT KNEE; ROHITH ROTATOR CUFF SURG, CYST REMOVED; three back surgeries(laminectomy x 2,fusion) bowel resection with colostomy 06/2020, 11/2020 colostomy reversal, prostatectomy Past Anesthesia/Blood Transfusion Reactions: No Reported Reaction Smoking Status: Never smoker - Past Family History Mother Family Medical History: Cancer Additional Family Medical History / Comment(s): . Father Family Medical History: Cancer Medications and Allergies Home Medications Medication Instructions Recorded Confirmed Type amLODIPine BESYLATE [Norvasc] 10 mg PO DAILY 02/21/14 03/30/21 History Multivitamins, Thera [Multivitamin 1 tab PO DAILY 04/12/18 03/30/21 History (formulary)] traZODone HCL 50 mg PO HS 06/22/20 03/30/21 History Warfarin [Coumadin] 2.5 mg PO SUMOSA 11/06/20 03/30/21 History Warfarin [Coumadin] 5 mg PO TUWETHFR 11/06/20 03/30/21 History Ascorbic Acid [Vitamin C] 500 mg PO DAILY 03/28/21 03/30/21 History Cholecalciferol (Vitamin D3) 4,000 unit PO DAILY 03/28/21 03/30/21 History [Vitamin D3 (4,000 Iu)] Cholecalciferol [Vitamin D3 (25 25 mcg PO DAILY 03/28/21 03/30/21 History Mcg = 1000 Iu)] Coral Calcium 1 tab PO DAILY 03/28/21 03/30/21 History Echinacea 400 mg PO DAILY 03/28/21 03/30/21 History Garlic 1 each PO DAILY 03/28/21 03/30/21 History Ginkgo Biloba Nikep Extract [Ginkgo 30 mg PO DAILY 03/28/21 03/30/21 History Biloba] Glucosamine/Chondr Huynh A Sod [Osteo 1 each PO DAILY 03/28/21 03/30/21 History Bi-Flex Caplet] Iron 28 mg PO DAILY 03/28/21 03/30/21 History Kelp 1 tab PO DAILY 03/28/21 03/30/21 History L.acidoph,Paracasei, B.lactis 1 each PO DAILY 03/28/21 03/30/21 History [Probiotic] Magnesium 400 mg PO DAILY 03/28/21 03/30/21 History Potassium W/Iodine 1 tab PO DAILY 03/28/21 03/30/21 History Selenium 200 mcg PO DAILY 03/28/21 03/30/21 History Vitamin A 3,000 mcg PO DAILY 03/28/21 03/30/21 History Vitamin E 400 unit PO DAILY 03/28/21 03/30/21 History Zinc 50 mg PO DAILY 03/28/21 03/30/21 History Allergies Allergy/AdvReac Type Severity Reaction Status Date / Time No Known Allergies Allergy Verified 03/28/21 10:37
[2021-03-30] MEDS: LACTATED RINGERS 1,000 ML IV SCH ×2 (07:59→15:29)
[2021-03-30 08:19] LABS: Prothrombin Time 10.8 sec (9.0-12.0)
[2021-03-30] MEDS ORDERED: MIDAZOLAM 2 MG/2 ML VIAL IVP ONE (08:40)
[2021-03-30] MEDS ORDERED: NEOSTIGMINE 1 MG/ML 10 ML VIAL ONE (09:09)
[2021-03-30] MEDS ORDERED: LIDOCAINE 1%-EPI 1:100,000 20 ML VIAL ONE (09:09)
[2021-03-30] MEDS ORDERED: PROPOFOL 10 MG/ML 20 ML VIAL IV ONE (09:09)
[2021-03-30] MEDS ORDERED: LIDOCAINE 1% INJ 10MG/ML (20 ML MDV) ONE (09:09)
[2021-03-30] MEDS ORDERED: SUCCINYLCHOLINE CHLORIDE 100 MG/5 ML SYR IV ONE (09:09)
[2021-03-30] MEDS ORDERED: ePHEDrine SULFATE/0.9% NACL/PF 50 MG/5 ML SYRINGE IV ONE (09:09)
[2021-03-30] MEDS ORDERED: ROCURONIUM 10 MG/ML (5 ML VIAL) IV ONE (09:09)
[2021-03-30] MEDS ORDERED: PHENYLEPHRINE-0.9% NACL SYG 1,000 MCG/10 ML SYRINGE ONE (09:09)
[2021-03-30] MEDS ORDERED: ROPIVACAINE 5 MG/ML 30 ML VIAL ONE (09:09)
[2021-03-30] MEDS ORDERED: GLYCOPYRROLATE 0.2 MG/ML 2 ML VIAL ONE (09:09)
[2021-03-30] MEDS ORDERED: fentaNYL (PF) 50 MCG/ML 2 ML AMP ONE (09:09)
[2021-03-30] MEDS ORDERED: LIDOCAINE 1%-EPI 1:100,000 20 ML VIAL SQ ONE (09:16)
[2021-03-30] MEDS ORDERED: LACTATED RINGERS 1,000 ML IV ONE (10:12)
[2021-03-30] MEDS ORDERED: NALOXONE 0.4 MG/ML 1 ML VIAL IV PRN (13:22)
--- NOTE | 2021-03-30 13:29 | P.OP ---
Date of Procedure: 03/30/21 Description of Procedure: SURGEON: JUSTIN MULLIGAN MD PREOPERATIVE DIAGNOSES: 1. Recurrent incarcerated incisional hernia 2. Chronic anticoagulation 3. Chronic atrial fibrillation 4. Pre-existing urinary retention 5. Hypertensive heart disease 6. History of perforated diverticulitis with sequelae 7. Status post reversal of colostomy 8. History of peritoneal adhesions POSTOPERATIVE DIAGNOSES: 1. Recurrent incarcerated midline incisional hernia, 23 x 10 cm, with incarcerated small bowel 2. Chronic anticoagulation 3. Chronic atrial fibrillation 4. Pre-existing urinary retention 5. Hypertensive heart disease 6. History of perforated diverticulitis with sequelae 7. Status post reversal of colostomy 8. History of peritoneal adhesions OPERATION: 1. Robotic-assisted da Dakotah Xi laparoscopic extensive lysis of adhesions over 1.5 hours 2. Robotic-assisted da Dakotah Xi laparoscopic repair of recurrent incarcerated incisional hernia 23 x 10 cm with mesh, ventralight ST mesh 15.6 cm circular Anesthesia: GETA, regional, local Estimated Blood Loss (ml): 10 Pathology: none sent Condition: stable Disposition: floor COMPLICATIONS: None. Operative Findings: 1. Incarcerated recurrent incisional hernia with diffuse adhesions identified 2. Two (2) separate defects along the midline including upper abdomen 10 x 13 cm and lower abdomen 8 x 8 cm 3. Severe peritoneal adhesions including small bowel and colon to the abdominal wall from incarcerated incisional hernia reduced 4. Multiple facial imbrication 4 for closure of defect of the lower abdomen including re-approximation of the upper abdomen with underlay of mesh performed 5. Fascia repaired using #1 V-lock suture INDICATIONS: The patient is a 81-year-old male who presents with a personal history of multiple abdominal wall hernias following reversal of colostomy due to perforated diverticulitis. Surgical intervention with laparoscopic versus robotic and open techniques were reviewed. Placement of mesh was also reviewed. Benefits and risks were thoroughly described. Informed consent was obtained. DESCRIPTION OF PROCEDURE: The patient was brought into the operating room and laid in supine position. After general induction, the abdomen had been prepped and draped in standard sterile fashion. Ioban draping was also placed. Prior to incision, a timeout protocol was confirmed with surgical team regarding the patient's name including procedures to be performed. The robot was primed prior to the procedure. Granado catheter was placed. Initial incision was made with an #11 blade along the left upper quadrant. A 0 degree 5 mm laparoscopic trocar entry was performed and insufflated. Three 8 mm ports were placed along the right lateral abdominal wall under direct localization. Placements of the ports were 15 cm from the target anatomy and 8 cm apart. An accessory 12 mm port was exchanged at the left upper quadrant for suture including mesh. The iQVCloudi Xi robot was previously primed, prepped and draped then docked from the right side of the patient onto the left side of the patient. I then sat at the robot Da Dakotah Xi console where working arms of the robot including Bovie cautery connected to robotic scissors, needle team otr truck driver, and graspers placed by the mortgage assistant. Incarcerated omental contents were found along the upper midline defect including lower abdomen. Small bowel incarceration was confirmed along the upper abdomen. Severe small bowel and colon adhesions were identified and lysed using vessel sealer including electro-Bovie cautery for over 1.5 hrs. Two distinct fascial defects were found: Upper midline defect 10 x 13 cm and lower hernia defect 8 x 8 cm. The incarcerated contents were reduced as the peritoneal fat was cleaned from the abdominal wall. Next, hemostasis was checked with cautery. The hernia defects were oversewn using #1 nonabsorbable V-lock suture for each defect separately with fascial imbrication x 4. Next, ventralight ST mesh 15.6 cm was cut in half and overlapped along the midline and placed with the rough side towards the abdominal wall as to cover all defects. 2-0 VLOC absorbable sutures were used to fixate the mesh. A final endoscopic imaging was obtained. All instruments and pneumoperitoneum were evacuated from the abdominal cavity. The da Dakotah Xi robot was undocked from the patient. I re-scrubbed into the case for closure of incisions. The fascia of the 12-mm port was probed and less than 8-mm in size. The incisions were reapproximated using 4-0 Monocryl in an interrupted subcuticular fashion. Liquid glue was applied to the skin after cleansing the skin with normal saline and dilute hydrogen peroxide. An abdominal binder was placed. At the end of the procedure, needle, sponge, and instrument count had been verified correct by surgical coder. The patient was taken to the postanesthesia care unit in stable condition with Granado catheter present.
[2021-03-30] MEDS ORDERED: HYDROmorphone 0.5 MG/0.5 ML SYRINGE IVP ONE (14:00)
[2021-03-30] MEDS: ACETAMINOPHEN IV (For NPO) 1,000 MG in EMPTY BAG 1 BAG IVPB SCH ×2 (17:42→23:53)
[2021-03-30] MEDS ORDERED: ONDANSETRON 4 MG/2 ML VIAL IVP PRN (19:03)
[2021-03-30] MEDS: HYDROmorphone 1 MG/ML 1 ML SYRINGE IVP PRN (19:26)
[2021-03-30] MEDS: SODIUM CHLORIDE 0.9% 1,000 ML IV SCH (19:30)
[2021-03-30] MEDS: PIPERACILLIN-TAZOBACTAM 3.375 GM in SODIUM CHLORIDE 0.9% 100 ML IVPB SCH (19:30)
[2021-03-30] MEDS: traZODone HCL 50 MG TAB PO SCH (19:30)
[2021-03-30] MEDS: HEPARIN SODIUM,PORCINE/PF 5,000 UNIT/0.5 ML SYRINGE SQ SCH (19:30)
[2021-03-31] MEDS: PIPERACILLIN-TAZOBACTAM 3.375 GM in SODIUM CHLORIDE 0.9% 100 ML IVPB SCH ×3 (02:40→20:01)
[2021-03-31] MEDS: ACETAMINOPHEN IV (For NPO) 1,000 MG in EMPTY BAG 1 BAG IVPB SCH ×2 (05:41→12:11)
[2021-03-31] MEDS: amLODIPine 10 MG TAB PO SCH (08:37)
[2021-03-31] MEDS: HEPARIN SODIUM,PORCINE/PF 5,000 UNIT/0.5 ML SYRINGE SQ SCH (08:37)
[2021-03-31] MEDS: HYDROmorphone 1 MG/ML 1 ML SYRINGE IVP PRN (08:42)
[2021-03-31] MEDS: HYDROcodone/APAP 7.5-325MG 1 EACH TAB PO SCH ×3 (10:42→22:04)
[2021-03-31] MEDS: TAMSULOSIN 0.4 MG CAP.ER.24H PO SCH (10:42)
[2021-03-31 11:29] LABS: African American GFR (CKD) 66 (>60 ml/min/1.73 sqM); Anion Gap 6 mmol/L; Blood Urea Nitrogen 31 mg/dL (9-20); Calcium 8.6 mg/dL (8.4-10.2); Carbon Dioxide 27 mmol/L (22-30); Chloride 106 mmol/L (98-107); Glucose 111 mg/dL (74-99); Non-African American GFR(CKD) 57 (>60 ml/min/1.73 sqM); Potassium 4.2 mmol/L (3.5-5.1); Sodium 139 mmol/L (137-145)
[2021-03-31] MEDS ORDERED: ACETAMINOPHEN TAB 325 MG TAB PO SCH (12:00)
[2021-03-31] MEDS: polyethylene glycoL 3350 17 GM POWD.PACK PO SCH (12:12)
[2021-03-31] MEDS: DOCUSATE 100 MG CAP PO SCH ×2 (12:12→20:00)
[2021-03-31] MEDS: KETOROLAC 15 MG/ML 1 ML VIAL IVP SCH ×2 (12:12→18:01)
[2021-03-31] MEDS ORDERED: WARFARIN 2.5 MG TAB PO SCH (12:45)
[2021-03-31] MEDS ORDERED: SODIUM CHLORIDE 0.9% 1,000 ML IV ONE (12:52)
[2021-03-31] MEDS: LACTATED RINGERS 1,000 ML IV SCH (14:01)
[2021-03-31 14:17] LABS: INR 1.1 (<1.2); Prothrombin Time 11.5 sec (9.0-12.0)
--- NOTE | 2021-03-31 15:05 | P.PN ---
Subjective Progress Note Date: 03/31/21 His pain is better controlled after adjustment of medications. Miralax, colace started with flomax. Recommend continued observation and potential discharge pending improvement of pain. Objective - Vital Signs Vital signs: Vital Signs Temp 98.5 F 03/31/21 13:16 Pulse 91 03/31/21 13:16 Resp 18 03/31/21 13:16 BP 127/89 03/31/21 13:16 Pulse Ox 90 L 03/31/21 13:16 Intake & Output 03/30/21 03/31/21 03/31/21 18:59 06:59 18:59 Intake Total 2600 118 Output Total 110 400 Balance 2490 -400 118 Weight 70 kg Intake: IV 2300 Intake, IV Titration 300 Amount ACETAMINOPHEN IV (For NPO 100 ) 1,000 mg In Empty Bag 1 bag @ 400 mls/hr IVPB Q6HR [facility] Rx#:[id number] Lactated Ringers 1,000 ml 200 @ 20 mls/hr IV .Q24H [facility] Rx#:[id number] Oral 118 Output: Urine 100 400 Estimated Blood Loss 10 Other: Voiding Method Indwelling Catheter Indwelling Catheter Indwelling Catheter - Labs CBC & Chem 7: 03/31/21 10:46 Labs: Abnormal Lab Results - Last 24 Hours (Table) 03/31/21 Range/Units 10:46 BUN 31 H (9-20) mg/dL Glucose 111 H (74-99) mg/dL
[2021-03-31] MEDS: SODIUM CHLORIDE 0.9% 1,000 ML IV SCH (15:41)
[2021-03-31 15:58] LABS: Basophils % (A) 0 %; Eosinophils # (A) 0.1 k/uL (0-0.7); Eosinophils % (A) 1 %; HCT 40.1 % (39.0-53.0); Lymphocytes # (A) 0.6 k/uL (1.0-4.8); Lymphocytes % (A) 5 %; MCH 28.4 pg (25.0-35.0); MCHC 32.3 g/dL (31.0-37.0); MCV 88.1 fL (80.0-100.0); Mean Platelet Volume 7.7; Monocytes # (A) 0.7 k/uL (0-1.0); Monocytes % (A) 6 %; Neutrophils # (A) 10.6 k/uL (1.3-7.7); Neutrophils % (A) 87 %; Platelet Count 183 k/uL (150-450); RBC 4.55 m/uL (4.30-5.90); WBC 12.2 k/uL (3.8-10.6)
--- NOTE | 2021-03-31 17:09 | P.CONS ---
History of Present Illness - Reason for Consult Consult date: 03/31/21 Medical management Requesting physician: Tosha Lau - Chief Complaint Abdominal surgery - History of Present Illness History of presenting complaint: This is a very pleasant 81-year-old patient of Dr. Joel. Chronic stable medical conditions include paroxysmal atrial fibrillation on Coumadin, hypertension, prostate cancer treated by surgery and followed by radiation treatment a year later, back surgery. In June 2020 patient had severe sigmoid diverticulitis with perforation leading to sigmoid resection with Luke's procedure and colostomy. In November 2020 patient had reversal of the colostomy. Patient now presented with progressive increase in hernia from the surgical intervention. Patient denied any pain no nausea vomiting. Patient yesterday underwent repair of the incarcerated incisional hernia with a mesh and also had lysis radiations. Today patient sitting up in the bed. Eating a regular diet. Has not had any flatus or bowel movement. Some nausea. is present at bedside. No chest pain or shortness breath. Does have a Granado catheter. Otherwise, he does not have any trouble with his bowels. Review of systems: GEN.: Tired EYES: None HEENT: Decreased hearing NECK: None RESPIRATORY: None CARDIOVASCULAR: None GASTROINTESTINAL: As above GENITOURINARY: Granado catheter MUSCULOSKELETAL: Chronic back pain LYMPHATICS: None HEMATOLOGICAL: None PSYCHIATRY: None NEUROLOGICAL: None Past medical history to include: Paroxysmal atrial fibrillation, hypertension, prostate cancer treated with surgery and radiation treatment, back surgery, perforated sigmoid diverticulitis with Luke's procedure and colostomy-reversed Social 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 Conjunctiva normal. HEENT: External appearance of nose and ears normal, oral cavity grossly normal. NECK: JVD not raised; masses not palpable. HEART: First and second heart sounds are normal; no edema. LUNGS: Respiratory rate normal; clear to auscultation. ABDOMEN: Soft, some tenderness, no guarding rigidity, liver spleen not palpable, no masses palpable. Abdominal binder. Bowel sounds present PSYCH: [Alert and oriented x3; mood and affect anxious. NEUROLOGICAL: Cranial nerves grossly intact; no facial asymmetry, power and sensation grossly intact. LYMPHATICS: No lymph nodes palpable in the axilla and neck INVESTIGATIONS, reviewed in the clinical context: WBC 12.2 hemoglobin 13 platelets 183 potassium 4.2 creatinine 1.17 Assessment and plan: -Repair of incarcerated incisional hernia with a mesh and lysis radiations Diet has been advanced to regular - History of reversal of colostomy for a prior history of sigmoid diverticulitis with perforation - June 2020 -Colonic diverticulosis-asymptomatic -Paroxysmal atrial fibrillation chronically on Coumadin-controlled -Coumadin monitoring: this was held for surgery Will resumed tonight. -Prostate cancer with a history of surgery and radiation treatment -Primary osteoarthritis use analgesics when necessary -Chronic kidney disease stage III likely nephrosclerosis Follow BMP -Reactive leukocytosis. Currently no clinical evidence of infection. Improved Patient's home medications have been resumed. Diet has been advanced. Increase activity as tolerated. Coumadin to be resumed tonight. Care was discussed with the patient and at the bedside Thank you Dr. Lau Past Medical History Past Medical History: Atrial Fibrillation, Cancer, Hypertension, Osteoarthritis (OA), Prostate Disorder Additional Past Medical History / Comment(s): diverticulitis, prostate cancer in 2012 History of Any Multi-Drug Resistant Organisms: None Reported Past Surgical History: Back Surgery, Bowel Resection, Joint Replacement, Prostate Surgery, Tonsillectomy Additional Past Surgical History / Comment(s): left TOTAL KNEE; MULT arthroscopy RT KNEE; ROHITH ROTATOR CUFF SURG, CYST REMOVED; three back surgeries(laminectomy x 2,fusion) bowel resection with colostomy 06/2020, 11/2020 colostomy reversal, prostatectomy Past Anesthesia/Blood Transfusion Reactions: No Reported Reaction Past Psychological History: No Psychological Hx Reported Additional Psychological History / Comment(s): . Smoking Status: Never smoker Past Alcohol Use History: None Reported Past Drug Use History: None Reported - Past Family History Mother Family Medical History: Cancer Additional Family Medical History / Comment(s): . Father Family Medical History: Cancer Medications and Allergies Home Medications Medication Instructions Recorded Confirmed Type amLODIPine BESYLATE [Norvasc] 10 mg PO DAILY 02/21/14 03/30/21 History Multivitamins, Thera [Multivitamin 1 tab PO DAILY 04/12/18 03/30/21 History (formulary)] traZODone HCL 50 mg PO HS 06/22/20 03/30/21 History Warfarin [Coumadin] 2.5 mg PO SUMOSA 11/06/20 03/30/21 History Warfarin [Coumadin] 5 mg PO TUWETHFR 11/06/20 03/30/21 History Ascorbic Acid [Vitamin C] 500 mg PO DAILY 03/28/21 03/30/21 History Cholecalciferol (Vitamin D3) 4,000 unit PO DAILY 03/28/21 03/30/21 History [Vitamin D3 (4,000 Iu)] Cholecalciferol [Vitamin D3 (25 25 mcg PO DAILY 03/28/21 03/30/21 History Mcg = 1000 Iu)] Coral Calcium 1 tab PO DAILY 03/28/21 03/30/21 History Echinacea 400 mg PO DAILY 03/28/21 03/30/21 History Garlic 1 each PO DAILY 03/28/21 03/30/21 History Ginkgo Biloba [place] Extract [Ginkgo 30 mg PO DAILY 03/28/21 03/30/21 History Biloba] Glucosamine/Chondr Huynh A Sod [Osteo 1 each PO DAILY 03/28/21 03/30/21 History Bi-Flex Caplet] Iron 28 mg PO DAILY 03/28/21 03/30/21 History Kelp 1 tab PO DAILY 03/28/21 03/30/21 History L.acidoph,Paracasei, B.lactis 1 each PO DAILY 03/28/21 03/30/21 History [Probiotic] Magnesium 400 mg PO DAILY 03/28/21 03/30/21 History Potassium W/Iodine 1 tab PO DAILY 03/28/21 03/30/21 History Selenium 200 mcg PO DAILY 03/28/21 03/30/21 History Vitamin A 3,000 mcg PO DAILY 03/28/21 03/30/21 History Vitamin E 400 unit PO DAILY 03/28/21 03/30/21 History Zinc 50 mg PO DAILY 03/28/21 03/30/21 History Allergies Allergy/AdvReac Type Severity Reaction Status Date / Time No Known Allergies Allergy Verified 03/28/21 10:37 Physical Exam Vitals: Vital Signs Temp Pulse Resp BP Pulse Ox 03/31/21 08:00 98.3 F 90 18 147/89 93 L 03/31/21 01:58 98.1 F 65 17 127/80 91 L 03/30/21 19:19 97.5 F L 82 17 125/81 92 L 03/30/21 16:30 85 117/79 03/30/21 16:15 76 126/80 03/30/21 16:00 69 117/74 03/30/21 15:45 75 117/76 03/30/21 15:30 81 122/79 03/30/21 15:15 76 125/81 03/30/21 15:00 75 125/67 03/30/21 14:45 97.4 F L 81 116/71 90 L 03/30/21 14:30 77 100/67 03/30/21 14:15 85 112/58 03/30/21 14:00 74 100/63 03/30/21 13:45 76 107/64 03/30/21 13:30 86 101/69 03/30/21 13:15 97.2 F L 88 102/67 Intake and Output 03/30/21 03/31/21 03/31/21 22:59 06:59 14:59 Intake Total 300 118 Output Total 400 Balance 300 -400 118 Intake: Intake, IV Titration 300 Amount ACETAMINOPHEN IV (For NPO 100 ) 1,000 mg In Empty Bag 1 bag @ 400 mls/hr IVPB Q6HR [facility] Rx#:[id number] Lactated Ringers 1,000 ml 200 @ 20 mls/hr IV .Q24H [facility]A Rx#:[id number] Oral 118 Output: Urine 400 Other: Voiding Method Indwelling Catheter Indwelling Catheter Weight 70 kg Results CBC & Chem 7: 03/31/21 15:37 03/31/21 10:46
[2021-03-31] MEDS ORDERED: WARFARIN 5 MG TAB PO ONE (18:00)
[2021-03-31] MEDS: traZODone HCL 50 MG TAB PO SCH (20:00)
[2021-04-01] MEDS: KETOROLAC 15 MG/ML 1 ML VIAL IVP SCH ×3 (00:17→12:30)
[2021-04-01] MEDS: PIPERACILLIN-TAZOBACTAM 3.375 GM in SODIUM CHLORIDE 0.9% 100 ML IVPB SCH ×2 (04:14→12:31)
[2021-04-01] MEDS: HYDROcodone/APAP 7.5-325MG 1 EACH TAB PO SCH ×2 (04:14→12:31)
[2021-04-01] MEDS: DOCUSATE 100 MG CAP PO SCH (07:41)
[2021-04-01] MEDS: polyethylene glycoL 3350 17 GM POWD.PACK PO SCH (07:41)
[2021-04-01] MEDS: TAMSULOSIN 0.4 MG CAP.ER.24H PO SCH (07:41)
[2021-04-01] MEDS: amLODIPine 10 MG TAB PO SCH (07:41)
[2021-04-01 07:50] VITALS: RESP 18
[2021-04-01 09:26] LABS: Basophils % (A) 0 %; Eosinophils # (A) 0.1 k/uL (0-0.7); Eosinophils % (A) 1 %; HCT 35.1 % (39.0-53.0); HGB 11.7 gm/dL (13.0-17.5); Lymphocytes # (A) 0.8 k/uL (1.0-4.8); Lymphocytes % (A) 10 %; MCH 29.1 pg (25.0-35.0); MCHC 33.2 g/dL (31.0-37.0); MCV 87.6 fL (80.0-100.0); Mean Platelet Volume 8.2; Monocytes # (A) 0.7 k/uL (0-1.0); Monocytes % (A) 9 %; Neutrophils # (A) 6.5 k/uL (1.3-7.7); Neutrophils % (A) 79 %; Platelet Count 145 k/uL (150-450); RBC 4.01 m/uL (4.30-5.90); WBC 8.3 k/uL (3.8-10.6)
[2021-04-01 09:33] LABS: African American GFR (CKD) 72 (>60 ml/min/1.73 sqM); Anion Gap 3 mmol/L; Blood Urea Nitrogen 27 mg/dL (9-20); Calcium 8.3 mg/dL (8.4-10.2); Carbon Dioxide 26 mmol/L (22-30); Chloride 109 mmol/L (98-107); Glucose 87 mg/dL (74-99); Non-African American GFR(CKD) 62 (>60 ml/min/1.73 sqM); Potassium 3.7 mmol/L (3.5-5.1); Sodium 138 mmol/L (137-145)
[2021-04-01 11:10] LABS: INR 1.11 (0.90-1.11)
[2021-04-01] MEDS: SODIUM CHLORIDE 0.9% 1,000 ML IV SCH (12:32)
[2021-04-01] MEDS: LACTATED RINGERS 1,000 ML IV SCH (14:07)
--- NOTE | 2021-04-01 14:18 | P.PN ---
Progress Note - Text Progress Note Date: 04/01/21 - Chief Complaint Abdominal surgery History of presenting complaint: This is a very pleasant 81-year-old patient of Dr. Joel. Chronic stable medical conditions include paroxysmal atrial fibrillation on Coumadin, hypertension, prostate cancer treated by surgery and followed by radiation treatment a year later, back surgery. In June 2020 patient had severe sigmoid diverticulitis with perforation leading to sigmoid resection with Felipe tman's procedure and colostomy. In November 2020 patient had reversal of the colostomy. Patient now presented with progressive increase in hernia from the surgical intervention. Patient denied any pain no nausea vomiting. Patient yesterday underwent repair of the incarcerated incisional hernia with a mesh and also had lysis radiations. Today : Oral intake fair. Feeling much better. Has not [place] any flatus or bowel movement. Has been up to the bathroom. Making urine. Family at the bedside. Review of systems: Was done for constitutional, cardiovascular, GI, pulmonary. relevant finding as above Active Medications Acetaminophen (Acetaminophen Tab 500 Mg Tab) 1,000 mg PO ONCE PRN PRN Reason: Painful Procedures Stop: 04/29/21 07:52 Last Admin: 03/30/21 08:03 Dose: 1,000 mg Documented by: Hydrocodone Bitart/Acetaminophen (Hydrocodone/Apap 7.5-325mg 1 Each Tab) 1 each PO Q6H [facility] Last Admin: 04/01/21 12:31 Dose: 1 each Documented by: Amlodipine Besylate (Amlodipine 10 Mg Tab) 10 mg PO DAILY [facility] Stop: 04/30/21 09:01 Last Admin: 04/01/21 07:41 Dose: 10 mg Documented by: Docusate Sodium (Docusate 100 Mg Cap) 100 mg PO BID [facility] Last Admin: 04/01/21 07:41 Dose: 100 mg Documented by: Hydromorphone HCl (Hydromorphone 1 Mg/Ml 1 Ml Syringe) 1 mg IVP Q3HR PRN PRN Reason: Moderate to Severe Pain Last Admin: 03/31/21 08:42 Dose: 1 mg Documented by: Lactated Ringer's (Lactated Ringers) 1,000 mls @ 20 mls/hr IV .Q24H [facility] Stop: 04/28/21 14:16 Last Admin: 04/01/21 14:07 Dose: Not Given Documented by: Piperacillin Sod/Tazobactam (Sod 3.375 gm/ Sodium Chloride) 100 mls @ 25 mls/hr IVPB Q8H [facility] Last Admin: 04/01/21 12:31 Dose: 25 mls/hr Documented by: Sodium Chloride (Saline 0.9%) 1,000 mls @ 50 mls/hr IV .Q20H [facility] Last Admin: 04/01/21 12:32 Dose: 50 mls/hr Documented by: Ketorolac Tromethamine (Ketorolac 15 Mg/Ml 1 Ml Vial) 15 mg IVP Q6HR [facility] Stop: 04/03/21 10:13 Last Admin: 04/01/21 12:30 Dose: 15 mg Documented by: Lidocaine HCl (Lidocaine 1% (10mg/Ml) For Iv Start) 0.1 ml INTRADERMA PER PROTOCOL PRN PRN Reason: IV Start Stop: 04/28/21 14:14 Last Admin: 03/30/21 07:59 Dose: 0.1 ml Documented by: Miscellaneous Information (Warfarin Per Pharmacy) 0 each MISCELLANE DIRECTED PRN PRN Reason: PER PROTOCOL Naloxone HCl (Naloxone 0.4 Mg/Ml 1 Ml Vial) 0.2 mg IV Q2M PRN PRN Reason: Opioid Reversal Stop: 04/29/21 13:23 Ondansetron HCl (Ondansetron 4 Mg/2 Ml Vial) 4 mg IVP Q6HR PRN PRN Reason: Nausea And Vomiting Last Admin: 03/31/21 09:45 Dose: 4 mg Documented by: Polyethylene Glycol (Polyethylene Glycol 3350 17 Gm Powd.Pack) 17 gm PO DAILY [facility] Last Admin: 04/01/21 07:41 Dose: 17 gm Documented by: Tamsulosin HCl (Tamsulosin 0.4 Mg Cap.Er.24h) 0.4 mg PO ONCE PRN PRN Reason: Pre-Op Stop: 04/29/21 07:52 Last Admin: 03/30/21 08:03 Dose: 0.4 mg Documented by: Tamsulosin HCl (Tamsulosin 0.4 Mg Cap.Er.24h) 0.4 mg PO PC-BRKFST [facility] Last Admin: 04/01/21 07:41 Dose: 0.4 mg Documented by: Trazodone HCl (Trazodone Hcl 50 Mg Tab) 50 mg PO HS [facility] Stop: 04/29/21 21:01 Last Admin: 03/31/21 20:00 Dose: 50 mg Documented by: Warfarin Sodium (Warfarin 5 Mg Tab) 5 mg PO ONCE@1800 ONE Stop: 04/01/21 18:01 Past medical history to include: Paroxysmal atrial fibrillation, hypertension, prostate cancer treated with surgery and radiation treatment, back surgery, perforated sigmoid diverticulitis with Luke's procedure and colostomy-reversed Social 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 Conjunctiva normal. HEENT: External appearance of nose and ears normal, oral cavity grossly normal. NECK: JVD not raised; masses not palpable. HEART: First and second heart sounds are normal; no edema. LUNGS: Respiratory rate normal; clear to auscultation. ABDOMEN: Soft, some tenderness, no guarding rigidity, liver spleen not palpable, no masses palpable. Abdominal binder. Bowel sounds present PSYCH: [Alert and oriented x3; mood and affect anxious. INVESTIGATIONS, reviewed in the clinical context: April 01: WBC 8.3 hemoglobin 11.7 potassium 3.7 creatinine 1.10 WBC 12.2 hemoglobin 13 platelets 183 potassium 4.2 creatinine 1.17 Assessment and plan: -Repair of incarcerated incisional hernia with a mesh and lysis radiations Diet has been advanced to regular. No BM or flatus. - History of reversal of colostomy for a prior history of sigmoid diverticulitis with perforation - June 2020 -Colonic diverticulosis-asymptomatic -Paroxysmal atrial fibrillation chronically on Coumadin-controlled -Coumadin monitoring: this was held for surgery Will resumed tonight. -Prostate cancer with a history of surgery and radiation treatment -Primary osteoarthritis use analgesics when necessary -Chronic kidney disease stage III likely nephrosclerosis Follow BMP -Reactive leukocytosis. Currently no clinical evidence of infection. Improved Patient otherwise looking good. Did explain that the importance of finding a flatus and bowel movement. Given the abdominal surgery. Other medications to continue Thank you Dr. Lau
--- NOTE | 2021-04-01 14:21 | P.DS ---
Providers Date of admission: 03/31/21 07:16 Expected date of discharge: 04/01/21 Attending physician: Tosha Lau Consults: 03/30/21 07:51 Consult Physician Routine Consulting Provider: [facility] Consult Reason/Comments: Regional block Do you want consulting provider notified?: Yes 03/30/21 22:12 Consult Physician Routine Consulting Provider: Quique Watson Consult Reason/Comments: medical management Do you want consulting provider notified?: Yes Primary care physician: Maurizio Joel - Discharge Diagnosis(es) (1) Recurrent incisional hernia Status: Acute Hospital Course: POSTOPERATIVE DIAGNOSES: 1. Recurrent incarcerated midline incisional hernia, 23 x 10 cm, with incarcerated small bowel 2. Chronic anticoagulation 3. Chronic atrial fibrillation 4. Pre-existing urinary retention 5. Hypertensive heart disease 6. History of perforated diverticulitis with sequelae 7. Status post reversal of colostomy 8. History of peritoneal adhesions COURSE: The patient is a 81-year-old male who presents with a personal history of multiple abdominal wall hernias following reversal of colostomy due to perforated diverticulitis. Surgical intervention with laparoscopic versus robotic and open techniques were reviewed. Placement of mesh was also reviewed. He is status post repair of recurrent incisional ventral hernia. Postoperatively, pain was managed. Urinary retention resolved. Prior to discharge, medical reconciliation was performed. Procedures: OPERATION: 1. Robotic-assisted da [place] Xi laparoscopic extensive lysis of adhesions over 1.5 hours 2. Robotic-assisted da [place] Xi laparoscopic repair of recurrent incarcerated incisional hernia 23 x 10 cm with mesh, ventralight ST mesh 15.6 cm circular Anesthesia: GETA, regional, local Estimated Blood Loss (ml): 10 Pathology: none sent Condition: stable Disposition: floor COMPLICATIONS: None. Operative Findings: 1. Incarcerated recurrent incisional hernia with diffuse adhesions identified 2. Two (2) separate defects along the midline including upper abdomen 10 x 13 cm and lower abdomen 8 x 8 cm 3. Severe peritoneal adhesions including small bowel and colon to the abdominal wall from incarcerated incisional hernia reduced 4. Multiple facial imbrication 4 for closure of defect of the lower abdomen including re-approximation of the upper abdomen with underlay of mesh performed 5. Fascia repaired using #1 V-lock suture Patient Condition at Discharge: Good Plan - Discharge Summary Discharge Rx Participant: No New Discharge Prescriptions: New HYDROcodone/APAP 7.5-325MG [[place] 7.5-325] 1 tab PO Q4H PRN 3 Days #18 tab PRN Reason: Pain Continue amLODIPine BESYLATE [Norvasc] 10 mg PO DAILY Multivitamins, Thera [Multivitamin (formulary)] 1 tab PO DAILY traZODone HCL 50 mg PO HS Warfarin [Coumadin] 5 mg PO TUWETHFR Warfarin [Coumadin] 2.5 mg PO SUMOSA Cholecalciferol [Vitamin D3 (25 Mcg = 1000 Iu)] 25 mcg PO DAILY Selenium 200 mcg PO DAILY Magnesium 400 mg PO DAILY Kelp 1 tab PO DAILY Ginkgo Biloba [place] Extract [Ginkgo Biloba] 30 mg PO DAILY Garlic 1 each PO DAILY Coral Calcium 1 tab PO DAILY Ascorbic Acid [Vitamin C] 500 mg PO DAILY Zinc 50 mg PO DAILY Vitamin E 400 unit PO DAILY Vitamin A 3,000 mcg PO DAILY Potassium W/Iodine 1 tab PO DAILY L.acidoph,Paracasei, B.lactis [Probiotic] 1 each PO DAILY Iron 28 mg PO DAILY Glucosamine/Chondr Huynh A Sod [Osteo Bi-Flex Caplet] 1 each PO DAILY Echinacea 400 mg PO DAILY Cholecalciferol (Vitamin D3) [Vitamin D3 (4,000 Iu)] 4,000 unit PO DAILY Discharge Medication List amLODIPine BESYLATE [Norvasc] 10 mg PO DAILY 02/21/14 [History] Multivitamins, Thera [Multivitamin (formulary)] 1 tab PO DAILY 04/12/18 [History] traZODone HCL 50 mg PO HS 06/22/20 [History] Warfarin [Coumadin] 2.5 mg PO SUMOSA 11/06/20 [History] Warfarin [Coumadin] 5 mg PO TUWETHFR 11/06/20 [History] Ascorbic Acid [Vitamin C] 500 mg PO DAILY 03/28/21 [History] Cholecalciferol (Vitamin D3) [Vitamin D3 (4,000 Iu)] 4,000 unit PO DAILY 03/28/21 [History] Cholecalciferol [Vitamin D3 (25 Mcg = 1000 Iu)] 25 mcg PO DAILY 03/28/21 [History] Coral Calcium 1 tab PO DAILY 03/28/21 [History] Echinacea 400 mg PO DAILY 03/28/21 [History] Garlic 1 each PO DAILY 03/28/21 [History] Ginkgo Biloba [place] Extract [Ginkgo Biloba] 30 mg PO DAILY 03/28/21 [History] Glucosamine/Chondr Huynh A Sod [Osteo Bi-Flex Caplet] 1 each PO DAILY 03/28/21 [History] Iron 28 mg PO DAILY 03/28/21 [History] Kelp 1 tab PO DAILY 03/28/21 [History] L.acidoph,Paracasei, B.lactis [Probiotic] 1 each PO DAILY 03/28/21 [History] Magnesium 400 mg PO DAILY 03/28/21 [History] Potassium W/Iodine 1 tab PO DAILY 03/28/21 [History] Selenium 200 mcg PO DAILY 03/28/21 [History] Vitamin A 3,000 mcg PO DAILY 03/28/21 [History] Vitamin E 400 unit PO DAILY 03/28/21 [History] Zinc 50 mg PO DAILY 03/28/21 [History] HYDROcodone/APAP 7.5-325MG [[place] 7.5-325] 1 tab PO Q4H PRN 3 Days #18 tab 04/01/21 [Rx] Follow up Appointment(s)/Referral(s): Tosha Lau MD [STAFF PHYSICIAN] - 04/03/21 (Please call to confirm time) Patient Instructions/Handouts: Abdominal Binder (DC), Ventral Hernia Repair (DC) Activity/Diet/Wound Care/Special Instructions: Using antibacterial soap. No lifting over 4 pounds 4 weeks, April 29February shower. No bathtub soaks for 2 weeks, April 13 Wear abdominal binder daily for comfort except for showering. Use ice along incisions for today to prevent swelling. Take tylenol, aleve/ibuprofen, simethicone scheduled for 3 days for best pain relief Discharge Disposition: HOME SELF-CARE
[2021-04-01 14:24] VITALS: BP 132/85; PULSE 95; TEMP 97.8
[2021-04-01] MEDS ORDERED: WARFARIN 5 MG TAB PO ONE (18:00)
--- NOTE | 2021-04-01 18:58 | P.ANPRN ---
Procedure Note - Anesthesia - Nerve Block Performed Bilateral Erector Spinae Single Time Out Performed: Yes Date of Procedure: 03/30/21 Procedure Start Time: 08:40 Procedure Stop Time: 08:51 Location of Patient: PreOp Indication: Acute Post-Operative Pain, Requested by Surgeon Sedation Type: Sedate with meaningful contact maintained Preparation: Sterile Prep Position: Prone Needle Types: Pajunk Needle Gauge: 21 Ultrasound used to visualize needle placement: Yes Ultrasound used to observe medication spread: Yes Blood Aspirated: No Pain Paresthesia on Injection Noted: No Resistance on Injection: Normal Image Stored and Saved: Yes Events: Uneventful and Well Tolerated (ropi .5% 15cc pus xylo 1% with epi 15cc bilaterally at T 10)
[2021-04-03] MEDS ORDERED: WARFARIN 5 MG TAB PO SCH (12:37)
== END 2021-04-01 14:50 | disposition home or self-care (01) ==
LOC: OR 07:06 → 4SSUR 13:15 → OR 03-31 07:16 → INTOOBSV 03-31 07:16 → 4SSUR 03-31 07:16 → UNDODISIN 04-01 14:50
PROVIDERS: ADMIT Surgery Plastic and Reconstructive Surgery; ATTEND Surgery Plastic and Reconstructive Surgery
DX: K43.0 Incisional hernia with obstruction, without gangrene (principal); K66.0 Peritoneal adhesions (postprocedural) (postinfection); I42.9 Cardiomyopathy, unspecified; I13.10 Hypertensive heart and chronic kidney disease without heart failure, with stage 1 through stage 4 chronic kidney disease, or unspecified chronic kidney disease; N18.30 Chronic kidney disease, stage 3 unspecified; I48.0 Paroxysmal atrial fibrillation; M19.91 Primary osteoarthritis, unspecified site; K57.30 Diverticulosis of large intestine without perforation or abscess without bleeding; R33.9 Retention of urine, unspecified; D72.828 Other elevated white blood cell count; G89.29 Other chronic pain; M54.9 Dorsalgia, unspecified; Z79.01 Long term (current) use of anticoagulants; Z79.899 Other long term (current) drug therapy; Z98.1 Arthrodesis status; Z85.46 Personal history of malignant neoplasm of prostate; Z90.49 Acquired absence of other specified parts of digestive tract; Z96.652 Presence of left artificial knee joint; Z98.890 Other specified postprocedural states; Z92.3 Personal history of irradiation; Z60.2 Problems related to living alone; Z90.79 Acquired absence of other genital organ(s); Z80.9 Family history of malignant neoplasm, unspecified
CPT/HCPCS: 64999; 76942; 80048 ×2; 85025 ×2; 85610 ×3; 49657; G0378 ×3; C1781; J2543 ×3; J2250; J1100; J2710; J0690; J2405 ×2; J2001; J3010; J1170 ×3; J2795; J0131 ×2; J1885 ×2; J2370; J0330; J2704; J1644 ×2

== ENCOUNTER → 2021-08-03 | Outpatient (CLI) | payer MEDICARE, BC ==
--- NOTE | 2021-08-03 13:41 | CT ---
EXAMINATION TYPE: CT ChestAbdPelvis w con DATE OF EXAM: 08/03/2021 COMPARISON: 02/28/2021 HISTORY: 81-year-old male C61, Prostate CA. Previous prostatectomy as well as radiation in 2013 and 2 014. Previous resection of the colon. TECHNIQUE: Contiguous axial scanning of the chest, abdomen, and pelvis performed with IV Contrast, pa tient injected with 80 mL of Isovue 300. Delayed images through the kidneys were obtained. Coronal/sa gittal reconstructions performed. CT DLP: 758.90 mGycm Automated exposure control for dose reduction was used. FINDINGS: CHEST: A 2.3 cm heterogeneously enhancing posterior exophytic right thyroid lobe nodule slightly larger comp ared to 2.1 cm on 12/05/2020. Further evaluation with thyroid ultrasound recommended. Heart upper limits of normal in size without pericardial effusion. LAD and RCA coronary artery calcif ications are present. The aneurysm ascending aorta 4.2 cm appears slightly increased compared to 3.9 cm on 12/05/20. Bovine c onfiguration to the aortic arch. Mild atherosclerotic calcifications scattered throughout. Ectatic up per descending thoracic aorta at 3.2 cm. Enlarged caliber to the main right and left pulmonary arteries measuring up to 3.1 and 2.7 cm, respec tively, suggesting underlying pulmonary hypertension. Scattered small lower paratracheal lymph nodes measuring up to 7 mm unchanged. No thoracic lymphadeno madelyn. Continued volume loss in the right middle lobe and large focal eventration anterior to mid right rigo diaphragm. Strandy areas of scarring or atelectasis in the lower lungs. Tiny 3 mm right apical pulmonary nodule remains unchanged and now appears calcified suggesting a benign calcified granuloma. ABDOMEN: A 6 mm and 5 mm hypodensity within the right hepatic dome and caudate lobe remain unchanged suggestin g small cysts. Portal venous system is patent. No biliary ductal dilatation. Gallbladder, adrenal glands, and pancreas appear within normal limits. Numerous small cortical hypode nsities within the kidneys measuring up to 9 mm suggestive of cysts. Parapelvic cysts in the left kid alison measure up to 1.3 cm. Spleen normal size. There is some perisplenic soft tissue thickening probably scarring or trace resid ual fluid. The left subphrenic abscess seen on 02/28/2021 has resolved. Moderate atherosclerotic calcifications abdominal aorta and iliac arteries. No dilated small bowel, free fluid, or free air. Post surgical change along the anterior abdominal wall. No ventral abdominal wall hernia is identifie d. Oral contrast progressed to the mid sigmoid colon. There are scattered moderate stool. No pericolonic inflammatory change. Post surgical change of prior resection and reanastomosis along the mid sigmoid colon. Some prominent left periaortic lymph nodes measuring up to 8 mm are unchanged. PELVIS: Lymph node at the right iliac bifurcation measures 1.4 cm, unchanged from 02/28/2021 but larger compar ed to 1.2 cm on 12/05/2020. Left external iliac chain lymph node measures 1.1 cm, also slightly larger compared to 7 mm, previously. Bladder is urine distended. Prostate gland surgically absent. Stable 3.5 cm nodule lower right inguinal canal, either encysted hydrocele or intracanalicular testic le. Otherwise, no abnormal fluid collection the pelvis. BONES: Moderate degenerative changes of the hips. Degenerated dextroconvex scoliosis lumbar spine. No osseou s destructive process. IMPRESSION: 1. STATUS POST PROSTATECTOMY. THERE IS A 1.4 CM RIGHT PELVIC LYMPH NODE STABLE FROM 02/28/2021 BUT SLI GHTLY LARGER FROM 12/05/2020 WHERE IT MEASURED 1.2 CM. THERE IS ALSO A 1.1 CM LEFT EXTERNAL ILIAC CHAIN LYMPH NODE INCREASED FROM 7 MM ON 12/05/2020. Correlate with PSA values and attention on follow-up. Ot herwise, no evidence for metastatic disease. 2. Interval resolution of the previous left subphrenic abscess. Some trace fluid or soft tissue thick ening remains along the spleen. Scarring is suspected. 3. A 2.3 cm exophytic nodule posterior right thyroid lobe slightly larger compared to 2.1 cm on 12-24. Dedicated thyroid ultrasound evaluation recommended. 4. Ascending aortic aneurysm at 4.2 cm may be slightly larger compared to 3.9 cm on 12/05/2020. 3. Incidental: CAD with LAD and RCA coronary calcifications, pulmonary arterial hypertension. Previou s mid sigmoid resection and reanastomosis.
--- NOTE | 2021-08-03 15:44 | NM ---
EXAMINATION TYPE: NM bone scan whole body DATE OF EXAM: 08/03/2021 COMPARISON: 12/05/2020 HISTORY: Prostate cancer Delayed whole-body scanning was performed following the injection of 22.7 mCi Tc 99m MDP. Images wer e acquired 4.5 hours post injection. FINDINGS: There is some mild uptake at the right posterior L5-S1 level and in the region of the left posterior L1-2 level. These areas are nonspecific but could be related to degenerative change. There is likely some degenerative type change within the lateral posterior left cervical spine mid region. Some focal uptake in the region of the left first carpal metacarpal junctions likely degenerative in nature. Findings appear stable from the comparison study. IMPRESSION: 1. Mild uptake within the cervical and lumbar spine discussed above, likely related to degenerative c hange. 2. Suspicious focal uptake photopenic defects to suggest metastatic disease is not identified.
== END | disposition home or self-care (01) ==
LOC: RADNMMAIN 08:58
PROVIDERS: ATTEND Internal Medicine Hematology & Oncology
DX: E04.1 Nontoxic single thyroid nodule (principal); I71.2 Thoracic aortic aneurysm, without rupture; Z90.79 Acquired absence of other genital organ(s); Z85.46 Personal history of malignant neoplasm of prostate
CPT/HCPCS: 82565; 84520; 71260; 74177; 78306; A9503; Q9967 ×2

== ENCOUNTER → 2022-02-04 | Outpatient (CLI) | payer MEDICARE, BC ==
[2022-02-04 14:45] LABS: INR 2.73 (0.90-1.11); Prothrombin Time 29.4 sec (9.9-11.9)
== END | disposition home or self-care (01) ==
LOC: LABWHC1 09:50
PROVIDERS: ATTEND Nurse Practitioner Family
DX: I48.21 Permanent atrial fibrillation (principal)
CPT/HCPCS: 36415; 85610

== ENCOUNTER → 2022-07-24 | Outpatient (CLI) | payer MEDICARE, BC ==
--- NOTE | 2022-07-24 12:44 | US ---
EXAMINATION TYPE: US bladder DATE OF EXAM: 07/24/2022 COMPARISON: CT 2020 CLINICAL HISTORY: N39.41 URGE INCONTINENCE. TECHNIQUE: Multiple sonographic images of the bladder are obtained. FINDINGS: EXAM MEASUREMENTS: Post Void Residual Volume: 9.1 mL Color Doppler performed to assess ureteral jets. Bilateral Jets seen: yes Normal Post Void Residual (less than 50ml): yes Bladder is anechoic but there is wall thickening. IMPRESSION: Correlate for cystitis.
--- NOTE | 2022-07-24 13:05 | US ---
EXAMINATION TYPE: US venous doppler duplex LE DATE OF EXAM: 07/24/2022 12:51 PM COMPARISON: US 2018 CLINICAL HISTORY: R60.0 EDEMA. Patient on blood thinners SIDE PERFORMED: Bilateral TECHNIQUE: The lower extremity deep venous system is examined utilizing real time linear array sonog arely with graded compression, doppler sonography and color-flow sonography. VESSELS IMAGED: Common Femoral Vein Deep Femoral Vein Greater Saphenous Vein * Femoral Vein Popliteal Vein Small Saphenous Vein * Proximal Calf Veins (* superficial vessels) Grayscale, color doppler, spectral doppler imaging performed of the deep veins of the lower extremiti es. There is normal flow, compressibility, vascular waveforms. Right Leg: Appears negative for DVT Left Leg: Appears negative for DVT IMPRESSION: No evidence for deep venous thrombosis in the bilateral lower extremities.
== END | disposition home or self-care (01) ==
LOC: RADUSWWP 11:47
PROVIDERS: ATTEND Family Medicine
DX: N39.41 Urge incontinence (principal); R60.0 Localized edema
CPT/HCPCS: 76857; 93970

== ENCOUNTER 2022-07-28 16:48 | Emergency (ER) | payer MEDICARE, BC ==
[2022-07-28 17:45] VITALS: TEMP 98.6
--- NOTE | 2022-07-28 18:20 | ED ---
General Adult HPI - General Chief complaint: Extremity Problem,Nontraumatic Stated complaint: LT arm swelling Time Seen by Provider: 07/28/22 18:20 Source: patient Mode of arrival: ambulatory Limitations: no limitations - History of Present Illness Initial comments: Patient presents to the ED with his for evaluation. Patient states that he had blood drawn from his left antecubital region 2 days ago, and he states that since then, he has developed pain, swelling and redness extending distally from that region to his left hand. Patient states that he is on warfarin anticoagulation therapy. Patient denies any other trauma or injury. Patient d enies fever or chills, headache, focal neuro deficit, chest pain or pressure, dyspnea, dizziness, abdominal pain, nausea or vomiting, or any other symptoms or complaints. - Related Data Home Medications Medication Instructions Recorded Confirmed amLODIPine BESYLATE [Norvasc] 10 mg PO DAILY 02/21/14 03/30/21 Multivitamins, Thera [Multivitamin 1 tab PO DAILY 04/12/18 03/30/21 (formulary)] traZODone HCL 50 mg PO HS 06/22/20 03/30/21 Warfarin [Coumadin] 2.5 mg PO SUMOSA 11/06/20 03/30/21 Warfarin [Coumadin] 5 mg PO TUWETHFR 11/06/20 03/30/21 Ascorbic Acid [Vitamin C] 500 mg PO DAILY 03/28/21 03/30/21 Cholecalciferol (Vitamin D3) 4,000 unit PO DAILY 03/28/21 03/30/21 [Vitamin D3 (4,000 Iu)] Cholecalciferol [Vitamin D3 (25 25 mcg PO DAILY 03/28/21 03/30/21 Mcg = 1000 Iu)] Coral Calcium 1 tab PO DAILY 03/28/21 03/30/21 Echinacea 400 mg PO DAILY 03/28/21 03/30/21 Garlic 1 each PO DAILY 03/28/21 03/30/21 Ginkgo Biloba [place] Extract [Ginkgo 30 mg PO DAILY 03/28/21 03/30/21 Biloba] Glucosamine/[place] A Sod [Osteo 1 each PO DAILY 03/28/21 03/30/21 Bi-Flex Caplet] Iron 28 mg PO DAILY 03/28/21 03/30/21 Kelp 1 tab PO DAILY 03/28/21 03/30/21 L.acidoph,Paracasei, B.lactis 1 each PO DAILY 03/28/21 03/30/21 [Probiotic] Magnesium 400 mg PO DAILY 03/28/21 03/30/21 Potassium W/Iodine 1 tab PO DAILY 03/28/21 03/30/21 Selenium 200 mcg PO DAILY 03/28/21 03/30/21 Vitamin A [Vitamin A (8,000 Units 3,000 mcg PO DAILY 03/28/21 03/30/21 = 2,400 MCG)] Vitamin E 400 unit PO DAILY 03/28/21 03/30/21 Zinc 50 mg PO DAILY 03/28/21 03/30/21 Previous Rx's Medication Instructions Recorded HYDROcodone/APAP 7.5-325MG [[place] 1 tab PO Q4H PRN 3 Days #18 tab 04/01/21 7.5-325] Cephalexin [Keflex] 500 mg PO QID 10 Days #40 cap 07/28/22 Allergies Allergy/AdvReac Type Severity Reaction Status Date / Time No Known Allergies Allergy Verified 07/28/22 17:45 Review of Systems ROS Statement: Those systems with pertinent positive or pertinent negative responses have been documented in the HPI. ROS Other: All systems not noted in ROS Statement are negative. Past Medical History Past Medical History: Atrial Fibrillation, Cancer, Hypertension, Osteoarthritis (OA), Prostate Disorder Additional Past Medical History / Comment(s): diverticulitis, prostate cancer in 2012 History of Any Multi-Drug Resistant Organisms: None Reported Past Surgical History: Back Surgery, Bowel Resection, Joint Replacement, Prostate Surgery, Tonsillectomy Additional Past Surgical History / Comment(s): left TOTAL KNEE; MULT arthroscopy RT KNEE; ROHITH ROTATOR CUFF SURG, CYST REMOVED; three back surgeries(laminectomy x 2,fusion) bowel resection with colostomy 06/2020, 11/2020 colostomy reversal, prostatectomy Past Anesthesia/Blood Transfusion Reactions: No Reported Reaction Past Psychological History: No Psychological Hx Reported Smoking Status: Never smoker Past Alcohol Use History: None Reported Past Drug Use History: None Reported - Past Family History Mother Family Medical History: Cancer Additional Family Medical History / Comment(s): . Father Family Medical History: Cancer General Exam Limitations: no limitations General appearance: alert, in no apparent distress Head exam: Present: atraumatic, normocephalic Eye exam: Present: normal appearance, EOMI ENT exam: Present: mucous membranes moist Respiratory exam: Present: normal lung sounds bilaterally. Absent: respiratory distress, wheezes, rales, rhonchi, stridor Cardiovascular Exam: Present: regular rate, normal rhythm, normal heart sounds, other (Normal radial pulses bilaterally) GI/Abdominal exam: Present: soft. Absent: distended, tenderness, guarding Extremities exam: Present: other (Streaky blanching erythema and tenderness is noted extending from the patient's left antecubital region distally along his anterior forearm toward the thenar region of his left hand consistent with lymphangitis; no crepitation or fluctuance is appreciated) Neurological exam: Present: alert, oriented X3. Absent: motor sensory deficit Psychiatric exam: Present: normal affect, normal mood Skin exam: Present: warm, dry, intact Course Vital Signs 07/28/22 17:43 Temperature 98.6 F Pulse Rate 107 H Respiratory 20 Rate Blood Pressure 138/87 O2 Sat by Pulse 99 Oximetry Medical Decision Making - Medical Decision Making I suspect that the patient's left upper extremity symptoms/findings are likely due to lymphangitis from recent blood draw. Patient is afebrile. Patient's labs and x-rays are fairly unremarkable. Patient has been treated with a dose of IV Ancef in the ED, and will discharge patient home on a course of Keflex. Patient was counseled about lymphangitis and what to watch for. Patient was gonzalo doris explained return and follow-up instructions. Patient was instructed to follow up with his primary care provider. Patient feels comfortable with this plan. - Lab Data Result diagrams: 07/28/22 18:50 07/28/22 18:50 Lab Results 07/28/22 07/28/22 07/28/22 Range/Units 18:50 18:50 18:50 WBC 11.1 H (3.8-10.6) k/uL RBC 4.52 (4.30-5.90) m/uL Hgb 13.1 (13.0-17.5) gm/dL Hct 39.8 (39.0-53.0) % MCV 88.0 (80.0-100.0) fL MCH 29.0 (25.0-35.0) pg MCHC 33.0 (31.0-37.0) g/dL RDW 13.7 (11.5-15.5) % Plt Count 209 (150-450) k/uL MPV 8.1 Neutrophils % 85 % Lymphocytes % 5 % Monocytes % 8 % Eosinophils % 0 % Basophils % 0 % Neutrophils # 9.4 H (1.3-7.7) k/uL Lymphocytes # 0.5 L (1.0-4.8) k/uL Monocytes # 0.9 (0-1.0) k/uL Eosinophils # 0.0 (0-0.7) k/uL Basophils # 0.0 (0-0.2) k/uL PT 26.2 H (9.0-12.0) sec INR 2.6 H (<1.2) APTT 44.0 H (22.0-30.0) sec Sodium 137 (137-145) mmol/L Potassium 3.8 (3.5-5.1) mmol/L Chloride 102 (98-107) mmol/L Carbon Dioxide 23 (22-30) mmol/L Anion Gap 12 mmol/L BUN 32 H (9-20) mg/dL Creatinine 1.04 (0.66-1.25) mg/dL Est GFR (CKD-EPI)AfAm 76 (>60 ml/min/1.73 sqM) Est GFR (CKD-EPI)NonAf 66 (>60 ml/min/1.73 sqM) Glucose 120 H (74-99) mg/dL Calcium 8.6 (8.4-10.2) mg/dL - Radiology Data Left forearm x-rays: Mild spurring on the olecranon process. No fracture seen. Vascular calcification. Disposition Clinical Impression: Lymphangitis Disposition: HOME SELF-CARE Condition: Stable Instructions (If sedation given, give patient instructions): Lymphangitis (ED) Additional Instructions: Return to the ER immediately should you develop increased pain/swelling/redness, a fever, shortness of breath, vomiting, feeling dizzy or faint, or new or worsening symptoms. Follow up closely with your primary care provider. Prescriptions: Cephalexin [Keflex] 500 mg PO QID 10 Days #40 cap Is patient prescribed a controlled substance at d/c from ED?: No Referrals: Maurizio Joel DO [Primary Care Provider] - 1-2 days Time of Disposition: 20:31
[2022-07-28 19:00] LABS: Basophils % (A) 0 %; Eosinophils % (A) 0 %; HCT 39.8 % (39.0-53.0); HGB 13.1 gm/dL (13.0-17.5); Lymphocytes # (A) 0.5 k/uL (1.0-4.8); Lymphocytes % (A) 5 %; Mean Platelet Volume 8.1; Monocytes # (A) 0.9 k/uL (0-1.0); Monocytes % (A) 8 %; Neutrophils # (A) 9.4 k/uL (1.3-7.7); Neutrophils % (A) 85 %; Platelet Count 209 k/uL (150-450); RBC 4.52 m/uL (4.30-5.90); RDW 13.7 % (11.5-15.5); WBC 11.1 k/uL (3.8-10.6)
[2022-07-28 19:08] LABS: INR 2.6 (<1.2); Prothrombin Time 26.2 sec (9.0-12.0)
[2022-07-28 19:16] LABS: Calcium 8.6 mg/dL (8.4-10.2); Potassium 3.8 mmol/L (3.5-5.1)
--- NOTE | 2022-07-28 19:41 | XR ---
EXAMINATION TYPE: XR forearm LT DATE OF EXAM: 07/28/2022 COMPARISON: NONE HISTORY: Pain TECHNIQUE: 3 views FINDINGS: The elbow joint is intact. There is some spurring on the olecranon process. The radius and ulna appear intact. There is some vascular calcification. IMPRESSION: Mild spurring on the olecranon process. No fracture seen. Vascular calcification.
[2022-07-28 21:04] VITALS: BP 129/78; PULSE 85; RESP 18
== END 2022-07-28 21:04 | disposition home or self-care (01) ==
LOC: EC 16:48
DX: I89.1 Lymphangitis (principal); I48.91 Unspecified atrial fibrillation; I10 Essential (primary) hypertension; M19.90 Unspecified osteoarthritis, unspecified site; Z79.83 Long term (current) use of bisphosphonates
CPT/HCPCS: 36415; 80048; 85025; 85610; 85730; 73090; 99283; 96374; J0690

== ENCOUNTER 2022-07-30 08:30 | Observation (INO) | payer MEDICARE, BC ==
[2022-07-30] MEDS ORDERED: KETOROLAC 15 MG/ML 1 ML VIAL IVP STA (08:52)
[2022-07-30] MEDS ORDERED: methylPREDNISolone SOD SUCCI 125 MG/2 ML VIAL IV STA (08:52)
[2022-07-30] MEDS ORDERED: MORPHINE SULFATE 2 MG/ML SYRINGE IVP STA (08:52)
--- NOTE | 2022-07-30 08:57 | ED ---
Extremity Problem HPI - General Chief complaint: Extremity Problem,Nontraumatic Stated complaint: extremity swelling-revisit Time Seen by Provider: 07/30/22 08:38 Source: patient, family, RN notes reviewed Mode of arrival: ambulatory Limitations: no limitations - History of Present Illness Initial comments: This is an 82-year-old male who presents to the emergency department for bilateral arm pain. Patient was here 2 days ago for left arm pain and swelling. He was diagnosed with cellulitis and given a dose of Ancef in the emergency department. He was then discharged on a course of Keflex. States that since then, the pain and swelling has progressed and is now present in the right arm as well. He believes that this may also be spreading to the right knee. Denies any history of similar symptoms in the past. He is unable to move his right arm due to the pain. The day before he had the initial pain in the left arm, he was getting routine blood work drawn, and he wonders if he may have acquired an infection from this. He did have chills last night but the family has not measured any fevers. Denies any fevers, sore throat, cough, dyspnea, chest pain, palpitations, abdominal pain, nausea, vomiting, diarrhea, back pain, or headaches. MD Complaint: extremity pain, extremity swelling Location: left, right, upper extremity - Related Data Home Medications Medication Instructions Recorded Confirmed amLODIPine BESYLATE [Norvasc] 10 mg PO DAILY 02/21/14 07/30/22 Multivitamins, Thera [Multivitamin 1 tab PO DAILY 04/12/18 07/30/22 (formulary)] Warfarin [Coumadin] 2.5 mg PO SUTUWETHFRSA@209911/06/20 07/30/22 Warfarin [Coumadin] 5 mg PO MO@209911/06/20 07/30/22 Ascorbic Acid [Vitamin C] 500 mg PO DAILY 03/28/21 07/30/22 Cholecalciferol [Vitamin D3 (25 25 mcg PO DAILY 03/28/21 07/30/22 Mcg = 1000 Iu)] Garlic 1 tab PO DAILY 03/28/21 07/30/22 Vitamin A [Vitamin A (8,000 Units 2,400 mcg PO DAILY 03/28/21 07/30/22 = 2,400 MCG)] Calcium Carbonate [Calcium] 600 mg PO DAILY 07/30/22 07/30/22 Omeprazole Magnesium [PriLOSEC OTC] 20 mg PO HS 07/30/22 07/30/22 Potassium Gluconate [Potassium 99 mg PO DAILY 07/30/22 07/30/22 Gluconate ER] Previous Rx's Medication Instructions Recorded Cephalexin [Keflex] 500 mg PO QID 10 Days #40 cap 07/28/22 Allergies Allergy/AdvReac Type Severity Reaction Status Date / Time No Known Allergies Allergy Verified 07/30/22 12:31 Review of Systems ROS Statement: Those systems with pertinent positive or pertinent negative responses have been documented in the HPI. ROS Other: All systems not noted in ROS Statement are negative. Past Medical History Past Medical History: Atrial Fibrillation, Cancer, Hypertension, Osteoarthritis (OA), Prostate Disorder Additional Past Medical History / Comment(s): diverticulitis, prostate cancer in 2012 History of Any Multi-Drug Resistant Organisms: None Reported Past Surgical History: Back Surgery, Bowel Resection, Joint Replacement, Prostate Surgery, Tonsillectomy Additional Past Surgical History / Comment(s): left TOTAL KNEE; MULT a rthroscopy RT KNEE; ROHITH ROTATOR CUFF SURG, CYST REMOVED; three back surgeries(laminectomy x 2,fusion) bowel resection with colostomy 06/2020, 11/2020 colostomy reversal, prostatectomy Past Anesthesia/Blood Transfusion Reactions: No Reported Reaction Past Psychological History: No Psychological Hx Reported Smoking Status: Never smoker Past Alcohol Use History: None Reported Past Drug Use History: None Reported - Past Family History Mother Family Medical History: Cancer Additional Family Medical History / Comment(s): . Father Family Medical History: Cancer General Exam Limitations: no limitations General appearance: alert, in distress Head exam: Present: atraumatic, normocephalic, normal inspection Respiratory exam: Present: normal lung sounds bilaterally. Absent: respiratory distress, wheezes, rales, rhonchi, stridor Cardiovascular Exam: Present: regular rate, normal rhythm, normal heart sounds. Absent: systolic murmur, diastolic murmur, rubs, gallop, clicks Extremities exam: Present: other (Very limited active range of motion of the right arm secondary to pain. Overlying heat and severe tenderness to palpation. There is limited range of motion secondary to the pain in the left arm as well, however it is less severe. 2+ radial pulses bilaterally.) Neurological exam: Present: alert, oriented X3, CN II-XII intact Psychiatric exam: Present: normal affect, normal mood Skin exam: Present: warm, dry, intact Course Vital Signs 07/30/22 07/30/22 08:33 11:51 Temperature 97.9 F 98.3 F Pulse Rate 108 H 96 Respiratory 20 16 Rate Blood Pressure 153/97 133/87 O2 Sat by Pulse 97 95 Oximetry Medical Decision Making - Medical Decision Making This is an 82-year-old male who presents to the emergency department for bilateral upper extremity pain and swelling. Duplex ultrasound of the left upper extremity obtained revealing no signs of a DVT. X-rays of the bilateral humerus and forearms obtained. There is no subcutaneous gas or osseous erosion to suggest a necrotizing fasciitis or osteonecrosis. The x-ray does show soft tissue edema on the dorsal aspect of the left forearm, as evidenced on physical examination as well. Additionally, he has severe degenerative changes of the f irst MCP joints bilaterally. Lab work reveals leukocytosis, similar to the values from 2 days ago. ESR and CRP are elevated at 87 and 19.5 respectively. ED attending, Dr. Saini, evaluated the patient alongside of me. Symptoms are most likely related to an inflammatory polyarthritis. However, given the chills and leukocytosis, there is a possibility of an infectious process. He was started on 2 g of cefepime for possible infectious component and was also given 125 mg of Solu-Medrol for inflammation. Morphine and Toradol were administered as well, which did in combination reduce his pain from a 9 to a 4. Due to the patient's level of pain and immobility due to his symptoms, will adm it to medicine for further evaluation and management with infectious disease and orthopedic consults. This case was discussed in detail with the attending ED physician. Presentation, findings, and treatment plan discussed in detail as well. - Lab Data Result diagrams: 07/30/22 09:35 07/30/22 09:35 Lab Results 07/30/22 07/30/22 07/30/22 Range/Units 09:35 09:35 09:35 WBC 11.2 H (3.8-10.6) k/uL RBC 4.19 L (4.30-5.90) m/uL Hgb 11.9 L (13.0-17.5) gm/dL Hct 36.1 L (39.0-53.0) % MCV 86.2 (80.0-100.0) fL MCH 28.4 (25.0-35.0) pg MCHC 33.0 (31.0-37.0) g/dL RDW 13.2 (11.5-15.5) % Plt Count 237 (150-450) k/uL MPV 8.0 Neutrophils % 81 % Lymphocytes % 5 % Monocytes % 10 % Eosinophils % 1 % Basophils % 0 % Neutrophils # 9.1 H (1.3-7.7) k/uL Lymphocytes # 0.6 L (1.0-4.8) k/uL Monocytes # 1.1 H (0-1.0) k/uL Eosinophils # 0.1 (0-0.7) k/uL Basophils # 0.0 (0-0.2) k/uL ESR 87 H (0-15) mm/hr Sodium 134 L (137-145) mmol/L Potassium 4.4 (3.5-5.1) mmol/L Chloride 104 (98-107) mmol/L Carbon Dioxide 20 L (22-30) mmol/L Anion Gap 10 mmol/L BUN 23 H (9-20) mg/dL Creatinine 0.84 (0.66-1.25) mg/dL Est GFR (CKD-EPI)AfAm >90 (>60 ml/min/1.73 sqM) Est GFR (CKD-EPI)NonAf 81 (>60 ml/min/1.73 sqM) Glucose 120 H (74-99) mg/dL Plasma Lactic Acid [place] 0.9 (0.7-2.0) mmol/L Calcium 8.0 L (8.4-10.2) mg/dL Total Bilirubin 1.3 (0.2-1.3) mg/dL AST 27 (17-59) U/L ALT 15 (4-49) U/L Alkaline Phosphatase 60 (38-126) U/L C-Reactive Protein 19.5 H (<1.0) mg/dL Total Protein 6.2 L (6.3-8.2) g/dL Albumin 3.1 L (3.5-5.0) g/dL - Radiology Data Radiology results: report reviewed, image reviewed Disposition Clinical Impression: Inflammatory polyarthritis Disposition: ADMITTED IP TO THIS HOSP
--- NOTE | 2022-07-30 09:44 | US ---
EXAMINATION TYPE: US venous doppler duplex UE LT DATE OF EXAM: 07/30/2022 COMPARISON: NONE CLINICAL HISTORY: Left arm redness and swelling. Left arm edema, patient on Coumadin SIDE PERFORMED: left Grayscale, color doppler, spectral doppler imaging performed of the deep veins of the upper extremiti es. There is normal flow, compressibility and vascular waveforms. The left internal jugular, subclav mo, axillary, brachial, basilic, cephalic, radial, and ulnar veins were evaluated. Left Arm: No evidence of DVT IMPRESSION: No ultrasound evidence for deep venous thrombosis of the left upper extremity.
[2022-07-30 09:45] LABS: Basophils % (A) 0 %; Eosinophils # (A) 0.1 k/uL (0-0.7); Eosinophils % (A) 1 %; HCT 36.1 % (39.0-53.0); HGB 11.9 gm/dL (13.0-17.5); Lymphocytes # (A) 0.6 k/uL (1.0-4.8); Lymphocytes % (A) 5 %; MCH 28.4 pg (25.0-35.0); MCV 86.2 fL (80.0-100.0); Monocytes # (A) 1.1 k/uL (0-1.0); Monocytes % (A) 10 %; Neutrophils # (A) 9.1 k/uL (1.3-7.7); Neutrophils % (A) 81 %; Platelet Count 237 k/uL (150-450); RBC 4.19 m/uL (4.30-5.90); RDW 13.2 % (11.5-15.5); WBC 11.2 k/uL (3.8-10.6)
[2022-07-30 10:01] LABS: ALT 15 U/L (4-49); African American GFR (CKD) >90 (>60 ml/min/1.73 sqM); Albumin 3.1 g/dL (3.5-5.0); Anion Gap 10 mmol/L; Blood Urea Nitrogen 23 mg/dL (9-20); Carbon Dioxide 20 mmol/L (22-30); Chloride 104 mmol/L (98-107); Glucose 120 mg/dL (74-99); Non-African American GFR(CKD) 81 (>60 ml/min/1.73 sqM); Sodium 134 mmol/L (137-145); Total Bilirubin 1.3 mg/dL (0.2-1.3); Total Protein 6.2 g/dL (6.3-8.2)
[2022-07-30 10:17] LABS: AST 27 U/L (17-59); Alkaline Phosphatase 60 U/L (38-126); C Reactive Protein 19.5 mg/dL (<1.0); Potassium 4.4 mmol/L (3.5-5.1)
--- NOTE | 2022-07-30 10:51 | XR ---
EXAMINATION TYPE: XR humerus bilateral DATE OF EXAM: 07/30/2022 10:45 AM INDICATION: Patient age:Male; 82 years old; Reason for study: pain, possible infection; PHH. COMPARISON: Bilateral forearm radiographs the same day. TECHNIQUE: Bilateral humerus radiographs with frontal and lateral projections. FINDINGS: No evidence of acute osseous pathology, joint dislocation, or soft tissue swelling. Moderat e to severe bilateral osteophytic changes of the shoulders with joint space narrowing, subchondral cy stic formation, and spurring. Severe hypertrophic changes of both AC joints. Diffuse bone mineralizat ion. No osseous erosions. No soft tissue gas. The remaining portions of the visualized chest are unre markable. IMPRESSION: 1. No acute osseous pathology. No osseous erosions. 2. Degenerative changes of both shoulders and AC joints.
--- NOTE | 2022-07-30 10:54 | XR ---
EXAMINATION TYPE: XR forearm bilateral DATE OF EXAM: 07/30/2022 10:45 AM INDICATION: Patient age:Male; 82 years old; Reason for study: pain, possible infection; PHH. COMPARISON: Left forearm radiograph 07/28/2022. TECHNIQUE: Bilateral forearm radiographs with lateral and frontal projections. FINDINGS: No acute fracture or dislocation. Diffuse bone mineralization. No osseous erosions. Degene rative changes of both wrists. Vascular sclerosis. No subcutaneous gas. Soft tissue edema of the dors al aspect of the left forearm. No joint effusions. IV cannula identified in the left forearm. Severe degenerative changes of the bilateral first MCP joints. IMPRESSION: 1. No evidence of acute fracture. No osseous erosions. 2. Soft tissue edema of the dorsal aspect of the left forearm.
[2022-07-30 12:11] LABS: Erythrocyte Sedimentation Rate 87 mm/hr (0-15)
[2022-07-30] MEDS: CEFEPIME 1 GM in SODIUM CHLORIDE 0.9% 50 ML IVPB SCH (13:12)
[2022-07-30] MEDS ORDERED: ONDANSETRON 4 MG/2 ML VIAL IVP PRN (13:27)
[2022-07-30] MEDS ORDERED: NALOXONE 0.4 MG/ML 1 ML VIAL IV PRN (13:27)
[2022-07-30] MEDS ORDERED: HYDROmorphone 1 MG/ML 1 ML SYRINGE IVP PRN (13:27)
[2022-07-30] MEDS ORDERED: ACETAMINOPHEN TAB 325 MG TAB PO PRN (13:27)
[2022-07-30] MEDS ORDERED: KETOROLAC 15 MG/ML 1 ML VIAL IVP PRN (13:27)
[2022-07-30] MEDS ORDERED: HYDROmorphone 0.5 MG/0.5 ML SYRINGE IVP PRN (13:27)
[2022-07-30] MEDS ORDERED: IBUPROFEN 400 MG TAB PO PRN (13:27)
[2022-07-30 16:06] LABS: INR 2.5 (<1.2); Partial Thromboplastin Time 41.9 sec (22.0-30.0); Prothrombin Time 24.8 sec (9.0-12.0)
--- NOTE | 2022-07-30 17:25 | P.HPIM ---
History of Present Illness H&P Date: 07/30/22 Patient is an 82-year-old male with PMH of atrial fibrillation on Coumadin, hypertension, osteoarthritis, history of prostate cancer presents the ED for joint swelling and chills. Patient reports undergoing left anticubital blood draw last week. After that, he started experiencing swelling and redness in the AC region extending to the left wrist. He went to the ED on Friday and was discharged with Keflex for treatment of cellulitis. He returns back to the ED today, stating his symtoms have travelled to the right elbow and right knee. He denies any history of autoimmune disorders. He denies any recent viral infection or travelling. His symtoms are associated with chills but no documented fever. Patient denies any headache, lower extremity edema, nausea or vomiting, cough, chest pain, shortness of breath, palpitations, changes in urination or bowel habits. No changes in appetite or weight. He denies any dizziness, numbness/weakness/tingling of extremities. In the ED, he was noted to be tachycardic with a heart rate in the 100s, otherwise stable. CBC showed leukocytosis of 11.2 and hemoglobin of 11.9. ESR was 87. CMP showed sodium 134, bicarb of 20, BUN 23, glucose of 120, calcium of 8. LFTs were within normal limits. CRP was 19.5. Venous Doppler of the left upper extremity negative for DVT. Left Forearm x-ray showed soft tissue edema. Patient is admitted under observation status for concerns of migratory polyarthritis. Review of systems is performed and is negative except above. General: non toxic, no distress, appears at stated age Derm: warm, dry Head: atraumatic, normocephalic, symmetric Eyes: EOMI, no lid lag, anicteric sclera Mouth: no lip lesion, mucus membranes moist Cardiovascular: S1S2 reg, no murmur, positive posterior tibial pulse bilateral, Lungs: CTA bilateral, no rhonchi, no rales , no accessory muscle use Abdominal: soft, nontender to palpation, no guarding, no appreciable organomegaly Ext: Left forearm with erythema in the antecubital region. Good range of motion of the left elbow and wrist. Right elbow effusion noted lateral side with restricted range of motion due to pain and tenderness to palpation. Right knee no effusion noted with restricted range of motion compared to the left knee. Neuro: no focal neuro deficits Psych: Alert, oriented, appropriate affect #Polyarthralgia #Leukocytosis #Normocytic anemia #Hyponatremia with Elevated BUN and metabolic acidosis #Hypocalcemia Chronic conditions: Atrial fibrillation, hypertension, history of prostate cancer Patient initially presented with left forearm swelling and redness after blood draw. He now reports right elbow and knee swelling and pain. ESR and CRP is elevated. He has a mild leukocytosis. Concerns for infectious process. Patient started on cefepime in the ED. Plans to consult infectious disease and orthopedic surgery. Follow blood culture.Rheumatoid factor, RYLEY, hepatitis panel and TSH ordered. Tylenol as needed for fever or chills. Ibuprofen or Toradol as needed for pain. PT and OT will be consulted to work with this patient. His hemoglobin is at baseline. No signs of active bleeding. Continue to monitor. Patient has been encouraged hydration by mouth. Repeat BMP tomorrow morning. His calcium is 8.7 when corrected for hypoalbuminemia. Restart home medications including amlodipine and Coumadin. Monitor vitals, adjust medication if necessary. Patient will need urology follow-up in the outpatient setting for history of prostate cancer. DVT prophylaxis: Coumadin Discussed with: Patient, daughter, ED physician Anticipated discharge: 1-[address]: Home A total of 30 minutes was spent on the care of this complex patient more than 50% of the time was spent in counseling and care coordination. Patient names his decision maker if he can't make decisions for himself. Patient would like to be full code. Past Medical History Past Medical History: Atrial Fibrillation, Cancer, Hypertension, Osteoarthritis (OA), Prostate Disorder Additional Past Medical History / Comment(s): diverticulitis, prostate cancer in 2012 History of Any Multi-Drug Resistant Organisms: None Reported Past Surgical History: Back Surgery, Bowel Resection, Joint Replacement, Prostate Surgery, Tonsillectomy Additional Past Surgical History / Comment(s): left TOTAL KNEE; MULT arthr oscopy RT KNEE; ROHITH ROTATOR CUFF SURG, CYST REMOVED; three back surgeries(laminectomy x 2,fusion) bowel resection with colostomy 06/2020, 11/2020 colostomy reversal, prostatectomy Past Anesthesia/Blood Transfusion Reactions: No Reported Reaction Past Psychological History: No Psychological Hx Reported Smoking Status: Never smoker Past Alcohol Use History: None Reported Past Drug Use History: None Reported - Past Family History Mother Family Medical History: Cancer Additional Family Medical History / Comment(s): . Father Family Medical History: Cancer Medications and Allergies Home Medications Medication Instructions Recorded Confirmed Type amLODIPine BESYLATE [Norvasc] 10 mg PO DAILY 02/21/14 07/30/22 History Multivitamins, Thera [Multivitamin 1 tab PO DAILY 04/12/18 07/30/22 History (formulary)] Warfarin [Coumadin] 2.5 mg PO SUTUWETHFRSA@209911/06/20 07/30/22 History Warfarin [Coumadin] 5 mg PO MO@2100 11/06/20 07/30/22 History Ascorbic Acid [Vitamin C] 500 mg PO DAILY 03/28/21 07/30/22 History Cholecalciferol [Vitamin D3 (25 25 mcg PO DAILY 03/28/21 07/30/22 History Mcg = 1000 Iu)] Garlic 1 tab PO DAILY 03/28/21 07/30/22 History Vitamin A [Vitamin A (8,000 Units 2,400 mcg PO DAILY 03/28/21 07/30/22 History = 2,400 MCG)] Cephalexin [Keflex] 500 mg PO QID 10 Days #40 cap 07/28/22 07/30/22 Rx Calcium Carbonate [Calcium] 600 mg PO DAILY 07/30/22 07/30/22 History Omeprazole Magnesium [PriLOSEC OTC] 20 mg PO HS 07/30/22 07/30/22 History Potassium Gluconate [Potassium 99 mg PO DAILY 07/30/22 07/30/22 History Gluconate ER] Allergies Allergy/AdvReac Type Severity Reaction Status Date / Time No Known Allergies Allergy Verified 07/30/22 12:31 Physical Exam Vitals: Vital Signs Temp Pulse Resp BP Pulse Ox 07/30/22 11:51 98.3 F 96 16 133/87 95 07/30/22 08:33 97.9 F 108 H 20 153/97 97 Intake and Output 07/30/22 07/30/22 07/30/22 06:59 14:59 22:59 Other: Weight 72.575 kg Results CBC & Chem 7: 07/30/22 09:35 07/30/22 09:35 Labs: Abnormal Lab Results - Last 24 Hours (Table) 07/30/22 07/30/22 07/30/22 Range/Units 09:35 09:35 15:00 WBC 11.2 H (3.8-10.6) k/uL RBC 4.19 L (4.30-5.90) m/uL Hgb 11.9 L (13.0-17.5) gm/dL Hct 36.1 L (39.0-53.0) % Neutrophils # 9.1 H (1.3-7.7) k/uL Lymphocytes # 0.6 L (1.0-4.8) k/uL Monocytes # 1.1 H (0-1.0) k/uL ESR 87 H (0-15) mm/hr PT 24.8 H (9.0-12.0) sec INR 2.5 H (<1.2) APTT 41.9 H (22.0-30.0) sec Sodium 134 L (137-145) mmol/L Carbon Dioxide 20 L (22-30) mmol/L BUN 23 H (9-20) mg/dL Glucose 120 H (74-99) mg/dL Calcium 8.0 L (8.4-10.2) mg/dL C-Reactive Protein 19.5 H (<1.0) mg/dL Total Protein 6.2 L (6.3-8.2) g/dL Albumin 3.1 L (3.5-5.0) g/dL
[2022-07-30] MEDS: polyethylene glycoL 3350 17 GM POWD.PACK PO SCH (18:51)
[2022-07-30] MEDS ORDERED: PANTOPRAZOLE 40 MG TABLET PO SCH (21:00)
[2022-07-30] MEDS ORDERED: WARFARIN 2.5 MG TAB PO SCH (21:00)
--- NOTE | 2022-07-30 23:53 | P.CONS ---
History of Present Illness - Reason for Consult Consult date: 07/30/22 - History of Present Illness Patient is a 82-year-old male with a past medical history significant for hypertension osteoarthritis history of prostate cancer atrial fibrillation on Coumadin patient apparently recently did have a blood draw from his left upper extremity and patient mention subsequently he did develop significant swelling and redness to the left antecubital fossa extending to the left wrist area for the patient was evaluated in the ER diagnosed with cellulitis and the patient was sent home on oral Keflex patient now presenting back to the hospital complaining of pain and stiffness to the right elbow and right knee area patient denies having any swelling or redness in the joints has been complaining of mostly locking and stiffness denies having any significant pain though no open wound or any drainage with the symptom the patient was evaluated by the ER physician on arrival to the ER the patient was afebrile and no fever have been recorded subsequently he did have mild leukocytosis of white count of 11.2 with a left shift kidney function has been normal blood culture has been obtained patient was started on cefepime and Solu-Medrol infectious disease was consulted concerning for possible inflammatory arthritis Past Medical History Past Medical History: Atrial Fibrillation, Cancer, Hypertension, Osteoarthritis (OA), Prostate Disorder Additional Past Medical History / Comment(s): diverticulitis, prostate cancer in 2012 History of Any Multi-Drug Resistant Organisms: None Reported Past Surgical History: Back Surgery, Bowel Resection, Joint Replacement, Prostate Surgery, Tonsillectomy Additional Past Surgical History / Comment(s): left TOTAL KNEE; MULT arthroscopy RT KNEE; ROHITH ROTATOR CUFF SURG, CYST REMOVED; three back surgeries(laminectomy x 2,fusion) bowel resection with colostomy 06/2020, 11/2020 colostomy reversal, prostatectomy Past Anesthesia/Blood Transfusion Reactions: No Reported Reaction Past Psychological History: No Psychological Hx Reported Smoking Status: Never smoker Past Alcohol Use History: None Reported Past Drug Use History: None Reported - Past Family History Mother Family Medical History: Cancer Additional Family Medical History / Comment(s): . Father Family Medical History: Cancer Medications and Allergies Home Medications Medication Instructions Recorded Confirmed Type amLODIPine BESYLATE [Norvasc] 10 mg PO DAILY 02/21/14 07/30/22 History Multivitamins, Thera [Multivitamin 1 tab PO DAILY 04/12/18 07/30/22 History (formulary)] Warfarin [Coumadin] 2.5 mg PO SUTUWETHFRSA@2100 11/06/20 07/30/22 History Warfarin [Coumadin] 5 mg PO MO@2100 11/06/20 07/30/22 History Ascorbic Acid [Vitamin C] 500 mg PO DAILY 03/28/21 07/30/22 History Cholecalciferol [Vitamin D3 (25 25 mcg PO DAILY 03/28/21 07/30/22 History Mcg = 1000 Iu)] Garlic 1 tab PO DAILY 03/28/21 07/30/22 History Vitamin A [Vitamin A (8,000 Units 2,400 mcg PO DAILY 03/28/21 07/30/22 History = 2,400 MCG)] Cephalexin [Keflex] 500 mg PO QID 10 Days #40 cap 07/28/22 07/30/22 Rx Calcium Carbonate [Calcium] 600 mg PO DAILY 07/30/22 07/30/22 History Omeprazole Magnesium [PriLOSEC OTC] 20 mg PO HS 07/30/22 07/30/22 History Potassium Gluconate [Potassium 99 mg PO DAILY 07/30/22 07/30/22 History Gluconate ER] Allergies Allergy/AdvReac Type Severity Reaction Status Date / Time No Known Allergies Allergy Verified 07/30/22 12:31 Physical Exam Vitals: Vital Signs Temp Pulse Resp BP Pulse Ox 07/30/22 18:51 95 18 113/79 96 07/30/22 11:51 98.3 F 96 16 133/87 95 07/30/22 08:33 97.9 F 108 H 20 153/97 97 Intake and Output 07/30/22 07/30/22 07/30/22 06:59 14:59 22:59 Other: Weight 72.575 kg Results CBC & Chem 7: 07/30/22 09:35 07/30/22 09:35 Labs: Abnormal Lab Results - Last 24 Hours (Table) 07/30/22 07/30/22 07/30/22 Range/Units 09:35 09:35 15:00 WBC 11.2 H (3.8-10.6) k/uL RBC 4.19 L (4.30-5.90) m/uL Hgb 11.9 L (13.0-17.5) gm/dL Hct 36.1 L (39.0-53.0) % Neutrophils # 9.1 H (1.3-7.7) k/uL Lymphocytes # 0.6 L (1.0-4.8) k/uL Monocytes # 1.1 H (0-1.0) k/uL ESR 87 H (0-15) mm/hr PT 24.8 H (9.0-12.0) sec INR 2.5 H (<1.2) APTT 41.9 H (22.0-30.0) sec Sodium 134 L (137-145) mmol/L Carbon Dioxide 20 L (22-30) mmol/L BUN 23 H (9-20) mg/dL Glucose 120 H (74-99) mg/dL Calcium 8.0 L (8.4-10.2) mg/dL C-Reactive Protein 19.5 H (<1.0) mg/dL Total Protein 6.2 L (6.3-8.2) g/dL Albumin 3.1 L (3.5-5.0) g/dL Assessment and Plan Plan: 1patient with recent episode of possible cellulitis at the left antecubital fossa after blood draw for the patient has been treated with oral Keflex now presenting to the hospital with significant stiffness to the right elbow and right knee area in this patient currently with no evidence of any cellulitis or swelling at the right elbow or the right knee area clinically doubt inflammatory polyarthritis in this patient with no fever did have mild elevated white count of. 2we will wait for the Ortho evaluation for possible aspirate of the joint which should be sent for cell count differential and culture. 3we will wait for the inflammatory markers to finalize. 4May continue with current empiric antibiotic therapy formal cefepime while waiting for the culture to finalize clinic suspicion low for infectious etiology. We will follow on clinical condition and cultures to further adjust medication if needed Thank you for this consultation will follow this patient along with you Time with Patient: Greater than 30
[2022-07-31] MEDS: CEFEPIME 1 GM in SODIUM CHLORIDE 0.9% 50 ML IVPB SCH ×2 (01:51→13:05)
[2022-07-31 07:34] VITALS: RESP 18
[2022-07-31 08:58] VITALS: BP 122/82; PULSE 89; TEMP 97.8
[2022-07-31] MEDS ORDERED: MULTIVITAMINS, THERA 1 EACH TAB PO SCH (09:00)
[2022-07-31] MEDS ORDERED: POTASSIUM CHLORIDE ER 10 MEQ TAB.ER.PRT PO SCH (09:00)
[2022-07-31] MEDS ORDERED: CALCIUM CARBONATE 500 MG CHEWABLE PO SCH (09:00)
[2022-07-31] MEDS ORDERED: VITAMIN A 10,000 UNIT (3000 MCG) CAPSULE PO SCH (09:00)
[2022-07-31] MEDS ORDERED: CHOLECALCIFEROL 25 MCG (1000 IU) TABLET PO SCH (09:00)
[2022-07-31] MEDS ORDERED: amLODIPine 10 MG TAB PO SCH (09:00)
[2022-07-31] MEDS ORDERED: ASCORBIC ACID 500 MG TAB PO SCH (09:00)
[2022-07-31] MEDS ORDERED: methylPREDNISolone 4 MG TAB TAPER PO SCH (09:30)
[2022-07-31] MEDS: polyethylene glycoL 3350 17 GM POWD.PACK PO SCH (11:13)
[2022-07-31 11:52] LABS: HCT 35.7 % (39.6-50.0); HGB 11.7 g/dL (13.0-17.0); MCH 27.9 pg (27.0-32.0); MCHC 32.8 g/dL (32.0-37.0); MCV 85.2 fL (80.0-97.0); Mean Platelet Volume 10.5 fL (9.5-12.2); NRBC Per 100 WBC 0 /100 WBCS (0.0-0.0); Platelet Count 266 X 10*3/uL (140-440); RBC 4.19 X 10*6/uL (4.40-5.60); RDW 14.1 % (11.5-14.5); WBC 17.23 X 10*3/uL (4.50-10.00)
[2022-07-31 11:58] LABS: African American GFR (CKD) 53.1 (60.0-200.0); BUN/Creat Ratio 31.64 Ratio (12.00-20.00); Blood Urea Nitrogen 44.3 mg/dL (9.0-27.0); Calcium 8.7 mg/dL (8.7-10.3); Carbon Dioxide 22.2 mmol/L (20.0-27.5); Chloride 103 mmol/L (96-109); Glucose 136 mg/dL (70-110); Non-African American GFR(CKD) 45.8 (60.0-200.0); Potassium 3.6 mmol/L (3.5-5.5); Rheumatoid Factor, Qnt 21 IU/mL (0-15); Sodium 138 mmol/L (135-145)
[2022-07-31 12:05] LABS: Hepatitis A Antibody IgM Nonreactive (Nonreactive); Hepatitis B Core IgM Nonreactive (Nonreactive); Hepatitis B Surface Antigen Nonreactive (Nonreactive); Hepatitis C IgG Antibody Nonreactive (Nonreactive)
[2022-07-31 12:07] LABS: INR 3.32 (0.90-1.11); Prothrombin Time 34.5 sec (9.9-11.9)
--- NOTE | 2022-07-31 13:46 | P.DS ---
Providers Date of admission: 07/30/22 12:28 Expected date of discharge: 07/31/22 Attending physician: Jason Tolliver MD Consults: 07/30/22 13:27 Consult Physician Urgent Consulting Provider: Raman Brito Consult Reason/Comments: Possible inflammatory polyarthritis Do you want consulting provider notified?: Yes Consult Physician Urgent Consulting Provider: Av Bernal Consult Reason/Comments: Possible inflammatory arthritis versus infection Do you want consulting provider notified?: Yes Primary care physician: [facility] Course: Patient is an 82-year-old male with PMH of atrial fibrillation on Coumadin, hypertension, osteoarthritis, history of prostate cancer presents the ED for joint swelling and chills. Patient reports undergoing left anticubital blood draw last week. After that, he started experiencing swelling and redness in the AC region extending to the left wrist. He went to the ED on Friday and was discharged with Keflex for treatment of cellulitis. He returns back to the ED today, stating his symtoms have travelled to the right elbow and right knee. He denies any history of autoimmune disorders. He denies any recent viral infection or travelling. His symtoms are associated with chills but no documented fever. Patient denies any headache, lower extremity edema, nausea or vomiting, cough, chest pain, shortness of breath, palpitations, changes in urination or bowel habits. No changes in appetite or weight. He denies any dizziness, numbness/weakness/tingling of extremities. In the ED, he was noted to be tachycardic with a heart rate in the 100s, otherwise stable. CBC showed leukocytosis of 11.2 and hemoglobin of 11.9. ESR was 87. CMP showed sodium 134, bicarb of 20, BUN 23, glucose of 120, calcium of 8. LFTs were within normal limits. CRP was 19.5. Venous Doppler of the left upper extremity negative for DVT. Left Forearm x-ray showed soft tissue edema. Patient is admitted under observation status for concerns of migratory polyarthritis. ESR was elevated at 87. Pro-calcitonin was elevated at 0.24. TSH within normal limits. Acute hepatitis panel negative. Rheumatoid factor elevated at 21. Infectious disease saw the patient, low suspicion for infectious cause. Orthopedic surgery evaluated the patient and recommended no arthrocentesis. Patient was seen and examined on 07/31/2022. He reported improvement in his pain and swelling of the right elbow and right knee. Patient will be discharged home to complete his course of Keflex that was previously prescribed to him. He will also be discharged home on Medrol Dosepak for possible autoimmune arthritis. Because his rheumatoid factor is elevated, he is advised follow-up with rheumatology within 2 weeks of discharge. Pertinent studies include venous Doppler, humerus x-ray, forearm x-ray. General: non toxic, no distress, appears at stated age Derm: warm, dry Head: atraumatic, normocephalic, symmetric Eyes: EOMI, no lid lag, anicteric sclera Mouth: no lip lesion, mucus membranes moist Cardiovascular: S1S2 reg, no murmur, positive posterior tibial pulse bilateral, Lungs: CTA bilateral, no rhonchi, no rales , no accessory muscle use Abdominal: soft, nontender to palpation, no guarding, no appreciable organomegaly Ext: Left forearm with erythema in the antecubital region. Good range of motion of the left elbow and wrist. Right elbow effusion noted lateral side with restricted range of motion due to pain and tenderness to palpation. Right knee no effusion noted with restricted range of motion compared to the left knee. Neuro: no focal neuro deficits Psych: Alert, oriented, appropriate affect Discharge diagnoses: #Polyarthralgia #Leukocytosis #Normocytic anemia #Hyponatremia with Elevated BUN and metabolic acidosis #Hypocalcemia Chronic conditions: Atrial fibrillation, hypertension, history of prostate cancer Patient Condition at Discharge: Stable Plan - Discharge Summary New Discharge Prescriptions: New methylPREDNISolone Dose Pack [Medrol Dose Pack] 4 mg PO DIRECTED #1 packet Acetaminophen Tab [Tylenol] 650 mg PO Q6HR PRN tab PRN Reason: Mild Pain Or Fever > 100.5 Continue amLODIPine BESYLATE [Norvasc] 10 mg PO DAILY Multivitamins, Thera [Multivitamin (formulary)] 1 tab PO DAILY Warfarin [Coumadin] 5 mg PO MO@2100 Warfarin [Coumadin] 2.5 mg PO SUTUWETHFRSA@2100 Cholecalciferol [Vitamin D3 (25 Mcg = 1000 Iu)] 25 mcg PO DAILY Garlic 1 tab PO DAILY Cephalexin [Keflex] 500 mg PO QID 10 Days #40 cap Omeprazole Magnesium [PriLOSEC OTC] 20 mg PO HS Ascorbic Acid [Vitamin C] 500 mg PO DAILY Vitamin A [Vitamin A (8,000 Units = 2,400 MCG)] 2,400 mcg PO DAILY Calcium Carbonate [Calcium] 600 mg PO DAILY Potassium Gluconate [Potassium Gluconate ER] 99 mg PO DAILY Discharge Medication List amLODIPine BESYLATE [Norvasc] 10 mg PO DAILY 02/21/14 [History] Multivitamins, Thera [Multivitamin (formulary)] 1 tab PO DAILY 04/12/18 [History] Warfarin [Coumadin] 2.5 mg PO SUTUWETHFRSA@209911/06/20 [History] Warfarin [Coumadin] 5 mg PO MO@209911/06/20 [History] Ascorbic Acid [Vitamin C] 500 mg PO DAILY 03/28/21 [History] Cholecalciferol [Vitamin D3 (25 Mcg = 1000 Iu)] 25 mcg PO DAILY 03/28/21 [History] Garlic 1 tab PO DAILY 03/28/21 [History] Vitamin A [Vitamin A (8,000 Units = 2,400 MCG)] 2,400 mcg PO DAILY 03/28/21 [History] Cephalexin [Keflex] 500 mg PO QID 10 Days #40 cap 07/28/22 [Rx] Calcium Carbonate [Calcium] 600 mg PO DAILY 07/30/22 [History] Omeprazole Magnesium [PriLOSEC OTC] 20 mg PO HS 07/30/22 [History] Potassium Gluconate [Potassium Gluconate ER] 99 mg PO DAILY 07/30/22 [History] Acetaminophen Tab [Tylenol] 650 mg PO Q6HR PRN tab 07/31/22 [Rx] methylPREDNISolone Dose Pack [Medrol Dose Pack] 4 mg PO DIRECTED #1 packet 07/31/22 [Rx] Follow up Appointment(s)/Referral(s): Maurizio Joel DO [Primary Care Provider] - 1-2 days Tete Miller MD [STAFF PHYSICIAN] - 1 Week Activity/Diet/Wound Care/Special Instructions: Diet: Low salt FU PCP within 1-2 days of DC. FU with Rheumatology within 1 week of DC. Take all medications as advised. Come back to the ED for F > 100.4F not relieved by Tylenol. Discharge Disposition: HOME SELF-CARE
[2022-07-31] MEDS ORDERED: WARFARIN 1 MG TAB PO ONE (21:00)
--- NOTE | 2022-08-01 08:34 | P.CNOR ---
History of Present Illness - [facility] Consult date: 07/31/22 History of present illness: Late entry- patient examined 07/31/22. This patient is an 82- year old male with a past medical history of atrial fibrillation on Coumadin, history of prostate cancer that presented to [facility] emergency department on 07/30/22 for right elbow and right knee swelling, pain. Patient recently underwent a blood draw of the left antecubital fossa. He states he developed erythema, warmth of the left arm following the blood draw. He was recently evaluated at [facility] emergency department and diagnosed with cellulitis, discharged on oral Keflex. Patient again presented to [facility] emergency department on 07/30/22, as he states his pain and swelling progressed to the right elbow and right knee. Patient was admitted under the care of internal medicine with a consult placed to orthopedic surgery and infectious disease. Patient is examined bedside this afternoon. Patient states his right elbow and right knee pain have almost completely resolved. Patient's family is bedside and states he has improved significantly since admission. Patient has been receiving IV steroids. He states he feels well and would like to return home this afternoon. He states he otherwise feels well and denies fevers, chills, nausea, vomiting. He denies any trauma or falls. No additional complaint at this time. Past Medical History Past Medical History: Atrial Fibrillation, Cancer, Hypertension, Osteoarthritis (OA), Prostate Disorder Additional Past Medical History / Comment(s): diverticulitis, prostate cancer in 2012 History of Any Multi-Drug Resistant Organisms: None Reported Past Surgical History: Back Surgery, Bowel Resection, Joint Replacement, Prostate Surgery, Tonsillectomy Additional Past Surgical History / Comment(s): left TOTAL KNEE; MULT arthroscopy RT KNEE; ROHITH ROTATOR CUFF SURG, CYST REMOVED; three back surgeries(laminectomy x 2,fusion) bowel resection with colostomy 06/2020, 11/2020 colostomy reversal, prostatectomy Past Anesthesia/Blood Transfusion Reactions: No Reported Reaction Past Psychological History: No Psychological Hx Reported Additional Psychological History / Comment(s): . Smoking Status: Never smoker Past Alcohol Use History: None Reported Past Drug Use History: None Reported - Past Family History Mother Family Medical History: Cancer Additional Family Medical History / Comment(s): . Father Family Medical History: Cancer Medications and Allergies Home Medications Medication Instructions Recorded Confirmed Type amLODIPine BESYLATE [Norvasc] 10 mg PO DAILY 02/21/14 07/30/22 History Multivitamins, Thera [Multivitamin 1 tab PO DAILY 04/12/18 07/30/22 History (formulary)] Warfarin [Coumadin] 2.5 mg PO SUTUWETHFRSA@2100 11/06/20 07/30/22 History Warfarin [Coumadin] 5 mg PO MO@2100 11/06/20 07/30/22 History Ascorbic Acid [Vitamin C] 500 mg PO DAILY 03/28/21 07/30/22 History Cholecalciferol [Vitamin D3 (25 25 mcg PO DAILY 03/28/21 07/30/22 History Mcg = 1000 Iu)] Garlic 1 tab PO DAILY 03/28/21 07/30/22 History Vitamin A [Vitamin A (8,000 Units 2,400 mcg PO DAILY 03/28/21 07/30/22 History = 2,400 MCG)] Cephalexin [Keflex] 500 mg PO QID 10 Days #40 cap 07/28/22 07/30/22 Rx Calcium Carbonate [Calcium] 600 mg PO DAILY 07/30/22 07/30/22 History Omeprazole Magnesium [PriLOSEC OTC] 20 mg PO HS 07/30/22 07/30/22 History Potassium Gluconate [Potassium 99 mg PO DAILY 07/30/22 07/30/22 History Gluconate ER] Acetaminophen Tab [Tylenol] 650 mg PO Q6HR PRN tab 07/31/22 Rx methylPREDNISolone Dose Pack 4 mg PO DIRECTED #1 packet 07/31/22 Rx [Medrol Dose Pack] Allergies Allergy/AdvReac Type Severity Reaction Status Date / Time No Known Allergies Allergy Verified 07/30/22 12:31 Physical Examination On examination, patient is sitting up in bed in no apparent distress. He is alert and oriented 3. His head appears normocephalic and atraumatic. His breathing appears non-labored. On inspection of the right upper extremity, there is mild swelling of the right elbow. There is no overlying erythema, no significant warmth. There is no pain to palpation of the right shoulder, elbow, forearm, wrist, hand. There is no pain with passive range of motion of the ri ght elbow. Motor and sensory function is intact of the right upper extremity. Radial pulse easily palpable. On inspection of the right knee, there is mild joint effusion. There is no overlying erythema, warmth. There is no pain with palpation of the right hip, thigh, knee, lower leg, ankle, foot. There is no pain with passive range of motion of the right hip, right knee. Motor and sensory function grossly intact to right lower extremity. Right lower extremity warm and well perfused. Calf soft and nontender to palpation. Results X-rays bilateral humerus, bilateral forearm 07/30/22 reviewed. No acute fractures. - Labs Labs: Abnormal Lab Results - Last 24 Hours (Table) 07/31/22 07/31/22 07/31/22 Range/Units 06:53 06:53 06:53 WBC 17.23 H (4.50-10.00) X 10*3/uL RBC 4.19 L (4.40-5.60) X 10*6/uL Hgb 11.7 L (13.0-17.0) g/dL Hct 35.7 L (39.6-50.0) % PT 34.5 H (9.9-11.9) sec INR 3.32 H (0.90-1.11) BUN 44.3 H (9.0-27.0) mg/dL Est GFR (CKD-EPI)AfAm 53.1 L (60.0-200.0) Est GFR (CKD-EPI)NonAf 45.8 L (60.0-200.0) BUN/Creatinine Ratio 31.64 H (12.00-20.00) Ratio Glucose 136 H (70-110) mg/dL Rheumatoid Factor 21 H (0-15) IU/mL Microbiology - Last 24 Hours (Table) 07/30/22 12:53 Blood Culture - Preliminary Blood No Growth after 24 hours 07/30/22 12:32 Blood Culture - Preliminary Blood No Growth after 24 hours H & H 07/30/22 07/31/22 Range/Units 09:35 06:53 Hgb 11.9 L 11.7 L (13.0-17.5) gm/dL Hct 36.1 L 35.7 L (39.0-53.0) % Coagulation 07/30/22 07/31/22 Range/Units 15:00 06:53 INR 2.5 H 3.32 H (<1.2) Result Diagrams: 07/31/22 06:53 07/31/22 06:53 Assessment and Plan Assessment: Right elbow pain Right knee pain Plan: - Clinical findings discussed with patient and family. Patient discussed with Dr. Brito. No surgical intervention recommended at this time. Patient feels h e has improved significantly on IV steroids. We will hold off on aspiration at this time. - Medical management per admitting team. - We will follow patient as he remains inpatient. If discharged, patient should follow-up in the office in one week with Dr. Brito.
[2022-08-05] MEDS ORDERED: WARFARIN 5 MG TAB PO SCH (21:00)
== END 2022-07-31 14:53 | disposition home or self-care (01) ==
LOC: EC 08:30 → 6NMEDSUR 12:28
PROVIDERS: ADMIT Family Medicine; ATTEND Family Medicine
DX: M25.521 Pain in right elbow (principal); M25.561 Pain in right knee; I48.91 Unspecified atrial fibrillation; I10 Essential (primary) hypertension; M19.90 Unspecified osteoarthritis, unspecified site; R00.0 Tachycardia, unspecified; M25.50 Pain in unspecified joint; D72.829 Elevated white blood cell count, unspecified; D64.9 Anemia, unspecified; E87.1 Hypo-osmolality and hyponatremia; E87.20 Acidosis, unspecified; E83.51 Hypocalcemia; Z85.46 Personal history of malignant neoplasm of prostate; Z79.01 Long term (current) use of anticoagulants; Z79.899 Other long term (current) drug therapy
CPT/HCPCS: 96365; 96366; 96375; 99285; 36415; 97166; 80053; 80048; 80074; 85652; 84443; 83605; 85025; 85027; 85610 ×2; 85730; 86140; 86431; 87040; 86038; 84145; 73060; 73090; 93971; G0378 ×2; J2930; J0692 ×2; J2270; J1885; J7509

== ENCOUNTER 2023-04-18 07:59 | Day surgery (SDC) | payer MEDICARE, BC ==
--- NOTE | 2023-04-18 06:43 | P.GSHP ---
History of Present Illness H&P Date: 04/18/23 CHIEF COMPLAINT: Inguinal hernia, left. HISTORY OF PRESENT ILLNESS: The patient is a 83-year-old male who presents with a history of swelling and pain along the left groin. He's noted increased swelling including pain of the area. Now he presents for repair of his inguinal hernia. PAST MEDICAL HISTORY: Please see list. PAST SURGICAL HISTORY: Please see list. MEDICATIONS: Please see list. ALLERGIES: Please see list. SOCIAL HISTORY: No illicit drug use FAMILY HISTORY: No reports of Crohn disease or ulcerative colitis. REVIEW OF ORGAN SYSTEMS: CONSTITUTIONAL: No reports of fevers or chills. No reports of weight loss despite prior attempts. GI: Denies any blood in stools or constipation. PHYSICAL EXAM: VITAL SIGNS: Stable GENERAL: Well-developed pleasant male in no acute distress. HEENT: No scleral icterus. Extraocular movements grossly intact. Moist buccal mucosa. NECK: Supple without lymphadenopathy. CHEST: Unlabored respirations. Equal bilateral excursions. CARDIOVASCULAR: Regular rate and rhythm. Distal 2+ pulses. ABDOMEN: Soft, nondistended. No peritoneal signs. Palpable defect of the left groin. MUSCULOSKELETAL: No clubbing, cyanosis, or edema. ASSESSMENT: 1. Inguinal hernia, left PLAN: 1. Recommend proceeding with a robotic inguinal repair with mesh with possible bilateral approach. 2. Benefits and risks of surgical intervention was discussed including possibility of open technique. 3. DVT prophylaxis. 4. Antibiotic prophylaxis. 5. Non narcotic pain management including abdominal wall block described 6. Blood sugar glucose described. 7. Weight loss management described. 8. He is elevated risk with blood thinner and cardiac disease Past Medical History Past Medical History: Atrial Fibrillation, Cancer, Hypertension, Osteoarthritis (OA), Prostate Disorder Additional Past Medical History / Comment(s): Diverticulitis, prostate cancer in 2013/surgery and one year later radiation History of Any Multi-Drug Resistant Organisms: None Reported Past Surgical History: Back Surgery, Bowel Resection, Joint Replacement, Prostate Surgery, Tonsillectomy Additional Past Surgical History / Comment(s): left TOTAL KNEE; MULT arthroscopy RT KNEE/total R knee 12/2022; ROHITH ROTATOR CUFF SURG, CYST REMOVED; three back surgeries(laminectomy x 2,fusion) bowel resection with colostomy 06/2020, 11/2020 colostomy reversal, colonoscopies, prostatectomy Past Anesthesia/Blood Transfusion Reactions: No Reported Reaction Additional Past Anesthesia/Blood Transfusion Reaction / Comment(s): Pt has never received blood. Smoking Status: Never smoker - Past Family History Mother Family Medical History: Cancer Additional Family Medical History / Comment(s): . Father Family Medical History: Cancer Medications and Allergies Home Medications Medication Instructions Recorded Confirmed Type amLODIPine BESYLATE [Norvasc] 10 mg PO QAM 02/21/14 07/30/22 History Warfarin [Coumadin] 2.5 mg PO SUMOTUFRSA 11/06/20 07/30/22 History Warfarin [Coumadin] 5 mg PO WETH 11/06/20 07/30/22 History Ascorbic Acid [Vitamin C] 500 mg PO QAM 03/28/21 04/17/23 History Cholecalciferol [Vitamin D3 (25 25 mcg PO QAM 03/28/21 04/17/23 History Mcg = 1000 Iu)] Vitamin A [Vitamin A (8,000 Units 2,400 mcg PO QAM 03/28/21 04/17/23 History = 2,400 MCG)] Calcium Carbonate [Calcium] 600 mg PO QAM 07/30/22 04/17/23 History Omeprazole Magnesium [PriLOSEC OTC] 20 mg PO HS 07/30/22 07/30/22 History Potassium Gluconate [Potassium 99 mg PO QAM 07/30/22 07/30/22 History Gluconate ER] Acetaminophen Tab [Tylenol] 650 mg PO Q6HR PRN tab 07/31/22 Rx Echinacea Purpurea Extract 125 mg PO QAM 04/17/23 04/17/23 History [Echinacea] Ginkgo Biloba [place] Extract [Ginkgo 30 mg PO QAM 04/17/23 04/17/23 History Biloba] Glucosamine/[place]ynh A Sod [Osteo 1 tab PO QAM 04/17/23 04/17/23 History Bi-Flex Caplet] Magnesium 400 mg PO QAM 04/17/23 04/17/23 History Multivitamins, Thera [Multivitamin 1 tab PO QAM 04/17/23 04/17/23 History (formulary)] Selenium 200 mg PO QAM 04/17/23 04/17/23 History Selenium 500 mg PO 04/17/23 04/17/23 History Allergies Allergy/AdvReac Type Severity Reaction Status Date / Time No Known Allergies Allergy Verified 04/16/23 15:38
[~2023-04-18 07:59] MED LIST changes: -DEXAMETHASONE SOD PHOSPHATE 4 MG/ML 1 ML VIAL IV ONE; -LIDOCAINE 1% (10MG/ML) FOR IV START INTRADERMA PRN; -ONDANSETRON 4 MG/2 ML VIAL IVP ONE; +ONDANSETRON 4 MG/2 ML VIAL IVP PRN
[2023-04-18] MEDS ORDERED: MIDAZOLAM 2 MG/2 ML VIAL IV PRN (08:12)
[2023-04-18] MEDS ORDERED: TAMSULOSIN 0.4 MG CAP.ER.24H PO STA (08:12)
[2023-04-18] MEDS ORDERED: HYDROmorphone 0.5 MG/0.5 ML SYRINGE IVP PRN (08:12)
[2023-04-18] MEDS: LACTATED RINGERS 1,000 ML IV SCH ×2 (08:21→13:30)
[2023-04-18] MEDS: ACETAMINOPHEN TAB 500 MG TAB PO PRN ×2 (08:56→15:28)
[2023-04-18] MEDS ORDERED: DEXAMETHASONE SOD PHOSPHATE 4 MG/ML 1 ML VIAL IVP ONE (08:56)
[2023-04-18 09:10] LABS: Anisocytosis Slight; Basophils % (A) 0 %; Eosinophils # (A) 0.1 k/uL (0-0.7); Eosinophils % (A) 1 %; HCT 40.2 % (39.0-53.0); HGB 12.8 gm/dL (13.0-17.5); Lymphocytes % (A) 17 %; MCH 27.2 pg (25.0-35.0); MCHC 31.9 g/dL (31.0-37.0); MCV 85.4 fL (80.0-100.0); Mean Platelet Volume 8.1; Monocytes # (A) 0.4 k/uL (0-1.0); Monocytes % (A) 8 %; Neutrophils # (A) 4.1 k/uL (1.3-7.7); Neutrophils % (A) 71 %; Platelet Count 199 k/uL (150-450); RDW 16.4 % (11.5-15.5); WBC 5.7 k/uL (3.8-10.6)
[2023-04-18 09:12] LABS: INR 1.2 (<1.2); Prothrombin Time 12.4 sec (9.0-12.0)
[2023-04-18] MEDS ORDERED: MIDAZOLAM 2 MG/2 ML VIAL IVP ONE (09:20)
[2023-04-18] MEDS ORDERED: LIDOCAINE 2% INJ 20 MG/ML (2 ML VIAL) ONE (09:37)
[2023-04-18] MEDS ORDERED: ROCURONIUM 10 MG/ML (5 ML VIAL) IV ONE (09:37)
[2023-04-18] MEDS ORDERED: PHENYLEPHRINE 10 MG/ML VIAL ONE (09:37)
[2023-04-18] MEDS ORDERED: SODIUM CHLORIDE 0.9% (PF) 10 ML VIAL ONE (09:37)
[2023-04-18] MEDS ORDERED: KETAMINE 10 MG/ML 20 ML VIAL ONE (09:37)
[2023-04-18] MEDS ORDERED: GLYCOPYRROLATE 0.2 MG/ML 2 ML VIAL ONE (09:37)
[2023-04-18] MEDS ORDERED: PROPOFOL 10 MG/ML 20 ML VIAL IV ONE (09:37)
[2023-04-18] MEDS ORDERED: NEOSTIGMINE 1 MG/ML 10 ML VIAL ONE (09:37)
[2023-04-18] MEDS ORDERED: fentaNYL (PF) 50 MCG/ML 2 ML AMP ONE (09:37)
[2023-04-18] MEDS ORDERED: SUCCINYLCHOLINE CHLORIDE 200 MG/10 ML VIAL IV ONE (09:37)
[2023-04-18] MEDS ORDERED: ROPIVACAINE 5 MG/ML 30 ML VIAL ONE (09:37)
[2023-04-18] MEDS ORDERED: KETOROLAC 15 MG/ML 1 ML VIAL ONE (09:37)
[2023-04-18] MEDS ORDERED: ePHEDrine 50 MG/ML 1 ML VIAL ONE (09:37)
[2023-04-18] MEDS ORDERED: LIDOCAINE 2%-EPI 1:100,000 20 ML VIAL SQ ONE (10:08)
--- NOTE | 2023-04-18 10:45 | P.ANPRN ---
Procedure Note - Anesthesia - Nerve Block Performed Bilateral Erector Spinae Time Out Performed: Yes (:) Date of Procedure: 04/18/23 Procedure Start Time: Procedure Stop Time: Location of Patient: PreOp Indication: Acute Post-Operative Pain, Requested by Surgeon (Dr Gilman) Sedation Type: Sedate with meaningful contact maintained Preparation: Sterile Prep Position: Prone Catheter: None Needle Types: Pajunk Needle Gauge: 21 Ultrasound used to visualize needle placement: Yes Ultrasound used to observe medication spread: Yes Injectate: 0.5% Ropivacaine (see comment for volume) (215cc +10ccvPF Normal saline each side) Blood Aspirated: No Pain Paresthesia on Injection Noted: No Resistance on Injection: Normal Image Stored and Saved: Yes Events: Uneventful and Well Tolerated
[2023-04-18 12:35] VITALS: TEMP 97
--- NOTE | 2023-04-18 14:59 | P.OP ---
Date of Procedure: 04/18/23 Description of Procedure: SURGEON: TOSHA LAU MD PREOPERATIVE DIAGNOSES: 1. Left inguinal hernia, initial 2. Chronic anticoagulation 3. Chronic atrial fibrillation 4. Pre-existing urinary retention 5. Hypertensive heart disease 6. History of perforated diverticulitis with sequelae 7. Status post reversal of colostomy 8. History of peritoneal adhesions 9. History of multiple abdominal hernias POSTOPERATIVE DIAGNOSES: 1. Initial left inguinal hernia, incarcerated with small bowel, partial bowel obstruction, 4-cm 2. Initial right inguinal hernia, 2-cm 3. Severe intra-abdominal adhesions 4. Pre-existing urinary retention 5. Hypertensive heart disease 6. History of perforated diverticulitis with sequelae 7. Status post reversal of colostomy 8. History of peritoneal adhesions 9. History of multiple abdominal hernias 10. Chronic anticoagulation 11. Chronic atrial fibrillation OPERATION: 1. Robotic-assisted da [place] Xi laparoscopic extensive lysis of adhesions over 1.5 hours, over 70% of the case 2. Robotic-assisted da [place] Xi laparoscopic reduction repair of initial incarcerated left indirect inguinal hernia with mesh, 11.[address] 3. Robotic-assisted da [place] Xi laparoscopic reduction repair of initial reducible right indirect inguinal hernia with mesh, 11.[address] ANESTHESIA: General with local anesthetic ESTIMATED BLOOD LOSS: 5 mL. SPECIMENS: 1. Incarcerated left inguinal hernia sac 2. Incarcerated right inguinal hernia sac COMPLICATIONS: None. FINDINGS: 1. Incarcerated left inguinal hernia over 4 x 4 cm, Nyhus 3, incorporating small bowel with partial obstruction 2. Reducible right inguinal hernia over 2 x 3 cm, Nyhus 3 3. Severe intra-abdominal adhesions from previous multiple abdominal surgeries and mesh repair with interloop adhesions. 4. Extensive lysis of adhesions over 1.5 hours including small bowel and abdominal wall without enterotomy INDICATIONS: The patient is a 83-year-old male who presents with left inguinal hernia. He reports changes in bowel habits as a result. Now he presents for definitive surgical intervention. Laparoscopic versus open and robotic approaches were discussed including bilateral approach. Benefits and risks including bleeding, infection, chronic groin pain, sterility were reviewed. Placement of mesh was also described. Informed consent was obtained. DESCRIPTION: In the preoperative area, an abdominal block was placed per anesthesia. The patient was brought to the operating room and initially laid in supine position. The abdomen had been prepped and draped in standard sterile fashion. [place] draping was also placed. Prior to incision, a timeout protocol was confirmed with surgical team regarding patient's name including procedures to be performed. Initial positioning for the robotic assisted ports were selected 20 cm superior to the target anatomy. A 0 degree 5 mm laparoscopic trocar entry was performed at the left upper quadrant however unsuccessful. The abdomen was entered along the right upper quadrant. The 5 mm trocar was exchanged for a millimeter trocar. The abdomen was insufflated to 15 mmHg which he tolerated well. Diagnostic laparoscopy demonstrated no injury to bowel, viscera or mesentery. Severe peritoneal adhesions was identified at the midline and left upper quadrant. Additionally, small bowel obstruction with incarceration of the left groin was found. Hernia inguinal along the right groin was identified, 2 x 3 cm. Trochars along the right lateral abdominal wall was placed using 8 mm trochars 3, total. Extensive lysis of adhesions over 1-1/2 hours performed using a scissors including vessel sealer. Interloop adhesions were also addressed. Once adhesions were taken down, the robot was docked to the upper abdomen. Next, along the epigastrium, 8 mm robot trocar was placed. An 8 mm port was placed at the left upper quadrant. All trocars were positioned between 10-cm apart from each other. The Da [place] tagWALLET XI robot was primed, draped, prepared for docking along upper abdomen of the patient. The patient was positioned 21 steep Trendelenburg position. I then went to the [employer] tagWALLET Xi console. The advertising assistant manager was at bedside for exchange of the robot arms and equipment. Attention was brought to the left groin. A very large left inguinal defect was confirmed as the small bowel was reduced from the left groin after direct pressure over the inguinal area was placed by the advertising assistant manager. Next, the left groin defect was measured 4 x 4-cm indirect hernia with the sac extending to the scrotum. A large indirect hernia was confirmed, Nyhus type 3. The left inguinal hernia sac was evaginated whereby the peritoneum was scored using Endo scissors with cautery. As the hernia sac extended into the groin, complete resection of the sac was done. The peritoneal sac of the hernia was stripped. The sac was resected and then passed off for further pathological analysis. The size of the hernia defect was 4 cm x 4 cm with intraoperative films obtained. Using nonabsorbable 2-0 VLOC, the peritoneal defect of the left inguinal hernia site was closed using a running suture. The defect was found to be completely closed with complete reduction of the left direct inguinal hernia was confirmed. As an onlay, an 11.[address] mesh by [employer] was cut in half and entered into the abdominal cavity via the 8 mm trocar. The mesh was tacked to the pelvis using 2-0 VLOC absorbable 9-inch length sutures. Attention was brought to the right groin. A large right inguinal defect was confirmed. Next, the right groin indirect defect was measured 2 x 3-cm hernia with the sac extending to the scrotum. An indirect hernia was confirmed, Nyhus type 3. The right inguinal hernia sac was evaginated whereby the peritoneum was scored using Endo scissors with cautery. As the hernia sac extended into the groin, complete resection of the sac was done. The peritoneal sac of the hernia was stripped. The sac was resected and then passed off for further pathological analysis. The size of the hernia defect was 2 cm x 3 cm with intraoperative films obtained. Using a nonabsorbable 2-0 VLOC, the peritoneal defect of the right inguinal hernia site was closed using a running suture. The defect was found to be completely closed with complete reduction of the right indirect inguinal hernia was confirmed. As an onlay, an 11.[address] mesh by [employer] was cut in half and entered into the abdominal cavity via the 8 mm trocar. The mesh was tacked to the pelvis using 2-0 VLOC absorbable 9-inch length sutures. A final endoscopic imaging was obtained. The robot was undocked from the patient's bedside. I then rescrubbed into the case. Insufflation was released from the abdominal cavity and all instruments were removed from the abdominal cavity. Pressure was applied along the left groin. The rest of incisions were reapproximated using 4-0 Monocryl in a running subcuticular fashion. Local anesthetic was placed along the incision including for a bilateral groin block. Incisions were cleansed using dilute hydrogen peroxide. Liquid glue was applied to the skin. At the end of the procedure, the needle, sponge and instrument counts had been verified correct by the surgical specialist. The patient had tolerated the procedure well and was taken to the postanesthesia care unit in stable condition. Intraoperative images were reviewed with the patient's family who were pleased with the level of care. Plan - Discharge Summary Discharge Rx Participant: No New Discharge Prescriptions: New Simethicone [Gas-X] 125 mg PO AC-TID PRN #20 capsule PRN Reason: Pain Acetaminophen Tab [Tylenol Tab] 1,000 mg PO Q6HR PRN #30 tablet PRN Reason: Pain Continue amLODIPine BESYLATE [Norvasc] 10 mg PO QAM Warfarin [Coumadin] 5 mg PO WETH Warfarin [Coumadin] 2.5 mg PO SUMOTUFRSA Cholecalciferol [Vitamin D3 (25 Mcg = 1000 Iu)] 25 mcg PO QAM Omeprazole Magnesium [PriLOSEC OTC] 20 mg PO HS Ginkgo Biloba [place] Extract [Ginkgo Biloba] 30 mg PO QAM Selenium 500 mg PO HS Selenium 200 mg PO QAM Ascorbic Acid [Vitamin C] 500 mg PO QAM Vitamin A [Vitamin A (8,000 Units = 2,400 MCG)] 2,400 mcg PO QAM Calcium Carbonate [Calcium] 600 mg PO QAM Potassium Gluconate [Potassium Gluconate ER] 99 mg PO QAM Glucosamine/Chondr Huynh A Sod [Osteo Bi-Flex Caplet] 1 tab PO QAM Magnesium 400 mg PO QAM Multivitamins, Thera [Multivitamin (formulary)] 1 tab PO QAM Echinacea Purpurea Extract [Echinacea] 125 mg PO QAM Discontinued Acetaminophen Tab [Tylenol] 650 mg PO Q6HR PRN tab PRN Reason: Mild Pain Or Fever > 100.5 Discharge Medication List amLODIPine BESYLATE [Norvasc] 10 mg PO QAM 02/21/14 [History] Warfarin [Coumadin] 2.5 mg PO SUMOTUFRSA 11/06/20 [History] Warfarin [Coumadin] 5 mg PO WETH 11/06/20 [History] Ascorbic Acid [Vitamin C] 500 mg PO QAM 03/28/21 [History] Cholecalciferol [Vitamin D3 (25 Mcg = 1000 Iu)] 25 mcg PO QAM 03/28/21 [History] Vitamin A [Vitamin A (8,000 Units = 2,400 MCG)] 2,400 mcg PO QAM 03/28/21 [History] Calcium Carbonate [Calcium] 600 mg PO QAM 07/30/22 [History] Omeprazole Magnesium [PriLOSEC OTC] 20 mg PO HS 07/30/22 [History] Potassium Gluconate [Potassium Gluconate ER] 99 mg PO QAM 07/30/22 [History] Echinacea Purpurea Extract [Echinacea] 125 mg PO QAM 04/17/23 [History] Ginkgo Biloba [place] Extract [Ginkgo Biloba] 30 mg PO QAM 04/17/23 [History] Glucosamine/Chondr Huynh A Sod [Osteo Bi-Flex Caplet] 1 tab PO QAM 04/17/23 [Histo ry] Magnesium 400 mg PO QAM 04/17/23 [History] Multivitamins, Thera [Multivitamin (formulary)] 1 tab PO QAM 04/17/23 [History] Selenium 200 mg PO QAM 04/17/23 [History] Selenium 500 mg PO HS 04/17/23 [History] Acetaminophen Tab [Tylenol Tab] 1,000 mg PO Q6HR PRN #30 tablet 04/18/23 [Rx] Simethicone [Gas-X] 125 mg PO AC-TID PRN #20 capsule 04/18/23 [Rx] Follow up Appointment(s)/Referral(s): Tosha Lau MD [STAFF PHYSICIAN] - 04/22/23 Patient Instructions/Handouts: Laparoscopic Herniorrhaphy (PRE), Inguinal Hernia Repair (GEN) Activity/Diet/Wound Care/Special Instructions: START BLOOD THINNER FRIDAY, APRIL 21 Using antibacterial soap. No lifting over 4 pounds 4 weeks, May 02February shower. No bathtub soaks for 2 weeks, May 02 Use ice along incisions for today to prevent swelling. Take tylenol, simethicone scheduled for 3 days for best pain relief Discharge Disposition: HOME SELF-CARE
[2023-04-18] MEDS ORDERED: ACETAMINOPHEN TAB 500 MG TAB ONE (15:25)
[2023-04-18 15:59] VITALS: BP 112/71; PULSE 81; RESP 15
[2023-04-18] MEDS ORDERED: ERYTHROMYCIN 5 MG/GM OPHTH OINT 3.5 GM TUBE RIGHT EYE SCH (16:00)
== END 2023-04-18 16:29 | disposition home or self-care (01) ==
LOC: OR 07:59
PROVIDERS: ATTEND Surgery Plastic and Reconstructive Surgery
DX: K40.30 Unilateral inguinal hernia, with obstruction, without gangrene, not specified as recurrent (principal); K40.90 Unilateral inguinal hernia, without obstruction or gangrene, not specified as recurrent; K66.0 Peritoneal adhesions (postprocedural) (postinfection); I11.9 Hypertensive heart disease without heart failure; Z93.3 Colostomy status; I48.20 Chronic atrial fibrillation, unspecified; M19.90 Unspecified osteoarthritis, unspecified site; K21.9 Gastro-esophageal reflux disease without esophagitis; Z79.01 Long term (current) use of anticoagulants; Z79.1 Long term (current) use of non-steroidal anti-inflammatories (NSAID); Z79.899 Other long term (current) drug therapy
CPT/HCPCS: 49650; S2900; 64999; 85025; 85610; 88302

== ENCOUNTER → 2023-10-23 | Outpatient (CLI) | payer MEDICARE, BC ==
--- NOTE | 2023-10-23 11:07 | US ---
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 See above regarding MADELINE indices .
== END | disposition home or self-care (01) ==
LOC: RADUSWWP 09:00
PROVIDERS: ATTEND Family Medicine
DX: I70.209 Unspecified atherosclerosis of native arteries of extremities, unspecified extremity (principal); I10 Essential (primary) hypertension
CPT/HCPCS: 93922

== ENCOUNTER → 2024-04-21 | Outpatient (CLI) | payer MEDICARE, BC ==
--- NOTE | 2024-04-22 11:11 | CA ---
Transthoracic Echo Report Name: Christofer Hampton Age: 84 Gender: M : 1940 Exam Date: 04/21/2024 14:02 Exam Location: [facility] Ht (in): 70 Wt (lb): 170 Ordering Physician: Ashtyn Black MD Attending/Referring Phys: Leslie Pompa Content Designer Saadia Woodson RDCS Procedure CPT: Indications: I48.21 PERMANENT ATRIAL FIBRILLATION Cardiac Hx: Technical Quality: Good Contrast 1: Total Dose (mL): Contrast 2: Total Dose (mL): MEASUREMENTS (Male / Female) Normal Values 2D ECHO LV Diastolic Diameter PLAX 4.3 cm 4.2 - 5.9 / 3.9 - 5.3 cm LV Systolic Diameter PLAX 3.0 cm IVS Diastolic Thickness 1.6 cm 0.6 - 1.0 / 0.6 - 0.9 cm LVPW Diastolic Thickness 1.3 cm 0.6 - 1.0 / 0.6 - 0.9 cm LV Relative Wall Thickness 0.7 LVOT Diameter 2.1 cm LA Volume 128.5 cm??? 18 - 58 / 22 - 52 cm??? LA Volume Index 65.6 cm???/m??? 16 - 28 cm???/m??? Ascending Aorta Diameter 3.9 cm DOPPLER AV Peak Velocity 154.9 cm/s AV Peak Gradient 9.6 mmHg AV Mean Velocity 108.0 cm/s AV Mean Gradient 5.3 mmHg AV Velocity Time Integral 28.6 cm LVOT Peak Velocity 117.8 cm/s LVOT Peak Gradient 5.5 mmHg LVOT Velocity Time Integral 19.3 cm LVOT Stroke Volume 68.8 cm??? LVOT Stroke Volume Index 35.3 ml/m??? LVOT Cardiac Index 2810.6 cm???/min???m??? AV Area Cont Eq vti 2.4 cm??? AV Area Cont Eq pk 2.7 cm??? TR Peak Velocity 244.5 cm/s TR Peak Gradient 23.9 mmHg PV Peak Velocity 74.6 cm/s PV Peak Gradient 2.2 mmHg FINDINGS Left Ventricle Left ventricular ejection fraction is estimated at 55-60 %. Moderately increased septal wall thickness. Left ventricular cavity size normal. No obvious regional wall motion abnormalities. Right Ventricle Normal right ventricular size and function. Right Atrium Severe right atrial dilatation. Left Atrium Severely increased left atrial volume. Moderately increased left atrial area. Mitral Valve Mitral valve thickened. No evidence for mitral valve prolapse. No mitral stenosis. [id number] mitral regurgitation. Aortic Valve Trileaflet aortic valve. No aortic stenosis. Trace aortic regurgitation. Tricuspid Valve Structurally normal tricuspid valve. No tricuspid stenosis. Mild tricuspid regurgitation. Pulmonic Valve Pulmonic valve not well visualized. No pulmonic stenosis. Trace pulmonic regurgitation. Pericardium No pericardial effusion. Aorta Normal size aortic root and proximal ascending aorta. CONCLUSIONS Left ventricular ejection fraction 55-60% Moderately increased left ventricular wall thickness Moderately dilated left atrium Mild to moderate mitral regurgitation Aortic valve sclerosis without significant aortic stenosis No pericardial effusion Previewed by: Dr. Robb Diallo DO (Electronically Signed) Final Date: 22 April 2024 11:10
== END | disposition home or self-care (01) ==
LOC: RADECHMAIN 13:53
PROVIDERS: ATTEND Internal Medicine Clinical Cardiac Electrophysiology
DX: I34.0 Nonrheumatic mitral (valve) insufficiency (principal); I51.7 Cardiomegaly; I48.21 Permanent atrial fibrillation; I35.8 Other nonrheumatic aortic valve disorders
CPT/HCPCS: 93306

== ENCOUNTER → 2024-04-26 | Outpatient (CLI) | payer MEDICARE, BC ==
--- NOTE | 2024-04-26 08:58 | US ---
EXAMINATION TYPE: US bladder DATE OF EXAM: 04/26/2024 COMPARISON: Bladder ultrasound 07/24/2022 CLINICAL INDICATION: Male, 84 years old with history of R32 UNSPECIFIED URINARY INCONTINENCE; patient loses control of urination, h/o prostatectomy TECHNIQUE: Multiple sonographic images of the bladder are obtained. FINDINGS: EXAM MEASUREMENTS: Post Void Residual Volume: 0 mL Normal Post Void Residual (less than 50ml): yes Urinary bladder is under distended prevoid which limits evaluation. Prevoid bladder volume is 31 mL. No gross evidence of filling defect within the limitation. IMPRESSION: Under distended urinary bladder prevoid with normal postvoid residual.
== END | disposition home or self-care (01) ==
LOC: RADUSWWP 08:20
PROVIDERS: ATTEND Family Medicine
DX: R32 Unspecified urinary incontinence (principal); R39.198 Other difficulties with micturition
CPT/HCPCS: 76857